=== PATIENT | female | born 1995 | race Two or more races ===

== ENCOUNTER 2018-08-24 03:09 | Observation (INO) | payer SELFPAY ==
[2018-08-24] MEDS ORDERED: EMTR1TAB2 PO (03:58)
[2018-08-24 04:55] LABS: Urine Bacteria FEW /hpf (None Seen); Urine Blood Negative /uL (Negative); Urine Specific Gravity 1.013 (1.001-1.035); Urine WBC 3 /hpf (0 - 5)
[2018-08-24 04:59] LABS: Alcohol, Urine < 3.0 mg/dL (0-5); Amphetamine Screen, Urine NEGATIVE (NEGATIVE); Barbiturate Scree,Urine NEGATIVE (NEGATIVE); Benzodiazephine Screen, Urine NEGATIVE (NEGATIVE); Cannabinoid Screen, Urine NEGATIVE (NEGATIVE); Cocaine Screen, Urine NEGATIVE (NEGATIVE); Opiate Scree,Urine NEGATIVE (NEGATIVE); Phencyclidine Screen, Urine NEGATIVE (NEGATIVE)
== END 2018-08-24 04:27 | disposition home or self-care (01) | DRG 832 ==
LOC: LDRP 03:09 → UNDODISOB 04:27
PROVIDERS: ADMIT Specialist; ATTEND Specialist
DX: O26.893 Other specified pregnancy related conditions, third trimester (principal); O98.713 Human immunodeficiency virus [HIV] disease complicating pregnancy, third trimester; B20 Human immunodeficiency virus [HIV] disease; R10.9 Unspecified abdominal pain; R20.2 Paresthesia of skin; Z3A.38 38 weeks gestation of pregnancy
CPT/HCPCS: 59025; 80307; 81001; 81002; G0378

== ENCOUNTER 2019-07-24 21:06 | Emergency (ER) | payer MEDICAID ==
[~2019-07-24] VITALS: Ht 167.6 cm; Wt 111.1 kg
[~2019-07-24 21:06] MED LIST: EMTR1TAB12 PO
[2019-07-24 21:19] VITALS: BP 112/78
[2019-07-24 21:53] LABS: Urine Bacteria FEW /hpf (None Seen); Urine Blood Negative /uL (Negative); Urine Mucus FEW (None Seen); Urine Specific Gravity 1.015 (1.001-1.035); Urine WBC 1 /hpf (0 - 5)
[2019-07-24 22:10] LABS: Alcohol, Urine < 3.0 mg/dL (0-10); Amphetamine Screen, Urine NEGATIVE (NEGATIVE); Barbiturate Scree,Urine NEGATIVE (NEGATIVE); Benzodiazephine Screen, Urine NEGATIVE (NEGATIVE); Cannabinoid Screen, Urine NEGATIVE (NEGATIVE); Cocaine Screen, Urine NEGATIVE (NEGATIVE); Opiate Scree,Urine NEGATIVE (NEGATIVE); Phencyclidine Screen, Urine NEGATIVE (NEGATIVE)
== END 2019-07-24 22:18 | disposition home or self-care (01) ==
LOC: EDBD 21:06 → ER 21:14
DX: O26.892 Other specified pregnancy related conditions, second trimester (principal); T78.1XXA Other adverse food reactions, not elsewhere classified, initial encounter; O99.342 Other mental disorders complicating pregnancy, second trimester; F41.9 Anxiety disorder, unspecified; Z3A.16 16 weeks gestation of pregnancy; X58.XXXA Exposure to other specified factors, initial encounter
CPT/HCPCS: 80307; 81001

== ENCOUNTER 2020-10-22 01:17 | Observation (INO) | payer SELFPAY ==
[2020-10-22] MEDS ORDERED: PREN-96 PO (01:46)
[2020-10-22] MEDS ORDERED: EMTRTAB7 PO (01:46)
== END 2020-10-22 04:27 | disposition home or self-care (01) ==
LOC: LDRP 01:17
PROVIDERS: ADMIT Obstetrics & Gynecology; ATTEND Obstetrics & Gynecology
DX: O23.592 Infection of other part of genital tract in pregnancy, second trimester (principal); B96.89 Other specified bacterial agents as the cause of diseases classified elsewhere; O26.892 Other specified pregnancy related conditions, second trimester; R10.9 Unspecified abdominal pain; O99.512 Diseases of the respiratory system complicating pregnancy, second trimester; J02.9 Acute pharyngitis, unspecified; Z3A.17 17 weeks gestation of pregnancy; Z79.899 Other long term (current) drug therapy; Z87.891 Personal history of nicotine dependence
CPT/HCPCS: 59025; 76805; 81002; 87210; G0378; G0379

== ENCOUNTER 2021-02-04 05:42 | Emergency (ER) | payer MEDICAID ==
[~2021-02-04] VITALS: Ht 167.6 cm; Wt 99.8 kg
[~2021-02-04 05:42] MED LIST changes: -EMTR1TAB12 PO; +EMTRTAB7 PO; +PREN-96 PO
[2021-02-04 07:57] LABS: Basophils # (auto) 0 10 ^3/uL (0-0.2); Basophils % (auto) 0.2 % (0.0-2.0); Eosinophils # (auto) 0 10 ^3/uL (0-0.8); Hematocrit 33.5 % (36.0-46.0); Hemoglobin 11.5 g/dL (12.2-16.2); Lymphocytes # (auto) 0.5 10 ^3/uL (0.4-5.4); Lymphocytes % (auto) 3.3 % (10.0-50.0); Mean Corpuscular Hemoglobin 28.2 pg (28.0-32.0); Mean Corpuscular Hgb Conc. 34.4 g/dL (32.0-36.0); Mean Corpuscular Volume 81.8 fL (80.0-100.0); Monocytes # (auto) 0.4 10 ^3/uL (0-1.3); Neutrophils # (auto) 13.9 10 ^3/uL (1.6-8.6); Neutrophils % (auto) 93.5 % (37.0-80.0); Nucleated Red Blood Cells % 0.1 %; Red Blood Cells 4.09 10^6/uL (4.0-5.20); Red Cell Distribution Width 14.3 % (11.8-14.3); White Blood Cell 14.9 10^3/uL (4.4-10.8)
[2021-02-04 08:13] LABS: Albumin 2.1 g/dL (3.4-5.0); Calcium 8.3 mg/dL (8.5-10.1); Potassium 3.1 mmol/L (3.5-5.1)
[2021-02-04 10:31] LABS: Urine Bacteria FEW /hpf (None Seen); Urine Blood Negative /uL (Negative); Urine Hyaline Cast MANY /lpf (0 - 2); Urine Mucus FEW (None Seen); Urine Specific Gravity 1.018 (1.001-1.035); Urine WBC 4 /hpf (0 - 5)
[2021-02-04] MEDS ORDERED: ASCORBIC ACID 500 MG TAB PO ONE (11:30)
[2021-02-04] MEDS ORDERED: POTASSIUM EFFERVESENT TAB 25 MEQ PO ONE (11:30)
[2021-02-04] MEDS ORDERED: ZINC SULFATE 220mg CAP or TAB PO ONE (11:30)
[2021-02-04] MEDS ORDERED: AZITHROMYCIN 500MG/ 250ML 250 ML IV ONE (11:30)
[2021-02-04] MEDS ORDERED: CHOLECALCIFEROL (VITD3) 2,000 UNIT CAP/TAB PO ONE (11:30)
[2021-02-04] MEDS ORDERED: DexAMETHasone SOD PHOS 10MG/1ML VIAL INJ IV ONE (11:30)
[2021-02-04] MEDS ORDERED: cefTRIAXone 1GM/50ML D5W 50 ML IV ONE (11:30)
[2021-02-04 19:55] VITALS: BP 119/76
== END 2021-02-04 20:29 | disposition short-term general hospital (02) ==
LOC: ER 05:42
DX: O99.513 Diseases of the respiratory system complicating pregnancy, third trimester (principal); O02.9 Abnormal product of conception, unspecified; J18.9 Pneumonia, unspecified organism; B20 Human immunodeficiency virus [HIV] disease; E87.6 Hypokalemia; E43 Unspecified severe protein-calorie malnutrition; R74.8 Abnormal levels of other serum enzymes; Z20.822 Contact with and (suspected) exposure to COVID-19; Z3A.31 31 weeks gestation of pregnancy
CPT/HCPCS: 36415; 71046; 80053; 81001; 85025; 87426; 87804; 93005; 96365; 96366; 96368; 96375; 99285; J0456; J0696; J1100

== ENCOUNTER → 2021-11-18 | Emergency (ER) | payer MEDICAID ==
[~2021-11-18] VITALS: Ht 167.6 cm; Wt 113.6 kg
[~2021-11-18] MED LIST changes: +CLIN300C8 PO
== END | disposition left against medical advice (07) ==
LOC: ER 15:25
DX: Z48.00 Encounter for change or removal of nonsurgical wound dressing (principal); Z53.21 Procedure and treatment not carried out due to patient leaving prior to being seen by health care provider

== ENCOUNTER 2021-11-19 00:46 | Emergency (ER) | payer MEDICAID ==
[~2021-11-19] VITALS: Ht 167.6 cm; Wt 109.1 kg
[~2021-11-19 00:46] MED LIST changes: -CLIN300C8 PO
[2021-11-19 02:12] VITALS: BP 112/70
[2021-11-19] MEDS ORDERED: CLIN300C8 PO (02:17)
[2021-11-19] MEDS ORDERED: CLINDAMYCIN HCL 150 MG CAP PO ONE (02:30)
== END 2021-11-19 02:46 | disposition home or self-care (01) ==
LOC: ER 00:55
DX: L03.311 Cellulitis of abdominal wall (principal); Z79.2 Long term (current) use of antibiotics; Z79.899 Other long term (current) drug therapy

== ENCOUNTER 2022-05-13 10:56 | Emergency (ER) | payer MEDICAID ==
[~2022-05-13] VITALS: Ht 167.6 cm; Wt 114.4 kg
[~2022-05-13 10:56] MED LIST changes: +CLIN300C8 PO
[2022-05-13 11:51] VITALS: BP 117/75
[2022-05-13] MEDS ORDERED: IBUP800T27 PO (11:57)
[2022-05-13] MEDS ORDERED: BACDST PO (11:57)
[2022-05-13] MEDS ORDERED: PER60TP TOP (11:57)
[2022-05-13] MEDS ORDERED: CEPH-510 PO (11:57)
[2022-05-13] MEDS ORDERED: cefTRIAXone SOD 1,000 MG VL IM ONE (12:00)
== END 2022-05-13 12:20 | disposition home or self-care (01) ==
LOC: ER 10:56
DX: S30.861A Insect bite (nonvenomous) of abdominal wall, initial encounter (principal); Z88.6 Allergy status to analgesic agent; Z88.1 Allergy status to other antibiotic agents; W57.XXXA Bitten or stung by nonvenomous insect and other nonvenomous arthropods, initial encounter; Y93.89 Activity, other specified; Y92.89 Other specified places as the place of occurrence of the external cause; Y99.8 Other external cause status
CPT/HCPCS: 96372; 99283; J0696

== ENCOUNTER 2023-07-08 18:15 | Emergency (ER) | payer MEDICAID, OTHER ==
[~2023-07-08] VITALS: Ht 167.6 cm; Wt 100.5 kg
[~2023-07-08 18:15] MED LIST changes: +BACDST PO; +CEPH-510 PO; +CLIN1CAP70 PO; -CLIN300C8 PO; +IBUP-1456 PO; +PER60TP TOP
[2023-07-08] MEDS ORDERED: BACDST PO ×2 (20:37→20:45)
[2023-07-08] MEDS ORDERED: BENZ100C97 PO (20:37)
[2023-07-08] MEDS: IBUPROFEN 600 MG TAB PO ONE (21:15)
[2023-07-08 21:19] VITALS: BP 129/72; PULSE 99; RESP 20; TEMP 99; O2SAT 98
== END 2023-07-08 21:18 | disposition home or self-care (01) ==
LOC: ER 18:20
DX: B59 Pneumocystosis (principal); Z21 Asymptomatic human immunodeficiency virus [HIV] infection status
CPT/HCPCS: 71046

== ENCOUNTER 2023-08-26 10:11 | Emergency (ER) | payer MEDICAID, OTHER ==
[~2023-08-26] VITALS: Ht 167.6 cm; Wt 100.0 kg
[~2023-08-26 10:11] MED LIST changes: +BENZ100C97 PO
[2023-08-26 10:19] VITALS: BP 103/65; PULSE 122; RESP 16; O2SAT 98
== END 2023-08-26 10:37 | disposition left against medical advice (07) ==
LOC: ER 10:11 → EDBD 10:11 → ER 10:37
DX: R42 Dizziness and giddiness (principal); R06.02 Shortness of breath; F41.9 Anxiety disorder, unspecified; R00.0 Tachycardia, unspecified; R11.0 Nausea; Z53.21 Procedure and treatment not carried out due to patient leaving prior to being seen by health care provider

== ENCOUNTER 2023-10-24 22:02 | Emergency (ER) | payer MEDICAID ==
[~2023-10-24] VITALS: Ht 167.6 cm; Wt 84.6 kg
[2023-10-24 22:27] VITALS: BP 134/86; PULSE 130; RESP 20; O2SAT 94
== END 2023-10-25 00:05 | disposition left against medical advice (07) ==
LOC: ER 22:02
DX: R22.41 Localized swelling, mass and lump, right lower limb (principal); R53.83 Other fatigue; R53.1 Weakness; Z53.21 Procedure and treatment not carried out due to patient leaving prior to being seen by health care provider

== ENCOUNTER 2024-01-02 22:10 | Inpatient (IN) | payer MEDICAID ==
[~2024-01-02] VITALS: Ht 167.6 cm; Wt 81.4 kg
[2024-01-02 23:08] LABS: Urine Bacteria None Seen /hpf (None Seen)
[2024-01-02 23:18] LABS: Urine Blood Negative /uL (Negative); Urine Clarity Turbid (Clear); Urine Color Yellow (Yellow); Urine Mucus FEW (None Seen); Urine Protein, UAD 1+ (Negative); Urine Specific Gravity 1.021 (1.001-1.035); Urine Urobilinogen 2 mg/dL (Negative); Urine WBC 9 /hpf (0 - 5)
[2024-01-02 23:29] LABS: Eosinophils # (auto) 0 10 ^3/uL (0-0.8); Hemoglobin 7.5 g/dL (12.2-16.2); Monocytes # (auto) 0.2 10 ^3/uL (0-1.3); Nucleated Red Blood Cells % 0.1 %
[2024-01-02 23:32] LABS: Basophils # (auto) 0 10 ^3/uL (0-0.2); Basophils % (auto) 0.8 % (0.0-2.0); Eosinophils % (auto) 0.8 % (0.0-7.0); Hematocrit 23.5 % (36.0-46.0); Lymphocytes % (auto) 16.7 % (10.0-50.0); Mean Corpuscular Hemoglobin 22.7 pg (28.0-32.0); Mean Corpuscular Hgb Conc. 31.9 g/dL (32.0-36.0); Mean Corpuscular Volume 71.1 fL (80.0-100.0); Monocytes % (auto) 3.1 % (0.0-12.0); Neutrophils # (auto) 4.8 10 ^3/uL (1.6-8.6); Neutrophils % (auto) 78.6 % (37.0-80.0); Platelet Count (auto) 266 10^3/uL (140-450); Red Blood Cells 3.31 10^6/uL (4.0-5.20); White Blood Cell 6.2 10^3/uL (4.4-10.8)
[2024-01-02 23:57] LABS: Albumin 3.2 g/dL (3.2-4.8); Alkaline Phosphatase 86 U/L (46-116); Anion Gap 8 (5-15); Aspartate Aminotransferase 21 U/L (13-40); BUN/Creatinine Ratio 13.2 (10.0-20.0); Bilirubin, Total 0.7 mg/dL (0.2-1.0); Blood Urea Nitrogen 7 mg/dL (9-23); Calcium 9.1 mg/dL (8.7-10.4); Carbon Dioxide 21 mmol/L (20-31); Chloride 101 mmol/L (98-107); Glucose 90 mg/dL (74-106); Potassium 4.1 mmol/L (3.5-5.1); Sodium 130 mmol/L (136-145); Total Protein 8.5 g/dL (5.7-8.2)
[2024-01-02 23:59] LABS: Alanine Aminotransferase < 9 U/L (7-40)
[2024-01-03] VITALS (7 sets, daily range): BP systolic 101–120; BP diastolic 54–70; PULSE 88–125; RESP 15–20; TEMP 97.5–98.8; O2SAT 97–100
[2024-01-03] MEDS: ONDANSETRON ODT 4 MG TAB PO ONE (00:14)
--- NOTE | 2024-01-03 00:35 | DVH ---
CHEST RADIOGRAPH Indication: cough Technique: Single frontal view of the chest was obtained Comparison: None FINDINGS: Lines and Tubes: None Lungs: Clear Pleura: No effusion. No pneumothorax. Cardiomediastinal contours: Unremarkable Bones: Unremarkable IMPRESSION: 1. Clear lungs.
--- NOTE | 2024-01-03 00:58 | ED.PDOC ---
History of Present Illness HPI Comments 28-year-old female with a history of AIDS brought in by EMS. Patient states she has been feeling fatigued for a week. Has been having cough and congestion. Patient has a history of immunocompromise. States approximate two months ago she was stopped taking her antivirals and antibiotics. Previous review of record shows she was possibly on Bactrim DS and azithromycin daily. Med report also she was she was on Biktarvy. Patient states coughing duration started one week ago, three days ago she was started feeling headache night sweats and feverish. Has been having intermittent nausea. Chief Complaint: General Weakness Time Seen by MD: 23:03 Primary Care Provider: NONE Reviewed Notes: Nurses Notes Allergies: Coded Allergies: NO KNOWN ALLERGIES (Unverified , 10/22/20) Home Meds Active Scripts Sulfamethoxazole W/Trimethopri (Bactrim Ds Tablet) 1 Tab Tb, 2 TAB PO Q8HR for 21 Days, #126 TAB Prov:MAXIM NIELSEN PAC 07/08/23 Benzonatate (Benzonatate) 100 Mg Cap, 1-2 CAP PO Q4HR, #60 CAP Prov:MAXIM NIELSEN [facility] 07/08/23 Permethrin (Elimite) 5 % Cre, 1 APPLIC TOP ONCE, #60 GRAMS 1 Refill Prov:TONY NAVARRO 05/13/22 Cephalexin ( Keflex 500) 500 Mg Cap, 1 CAP PO QID, #40 CAP Prov:TONY NAVARRO 05/13/22 Sulfamethoxazole W/Trimethopri (Bactrim Ds Tablet) 1 Tab Tb, 1 TAB PO BID for 10 Days, #20 TAB Prov:TONY NAVARRO 05/13/22 Ibuprofen (Ibuprofen) 800 Mg Tab, 1 TAB PO TID, #30 TAB Prov:TONY NAVARRO 05/13/22 Clindamycin Hcl (Clindamycin Hcl) 300 Mg Cap, 1 CAP PO TID for 10 Days, #21 CAP 0 Refills Prov:AMAYA SÁNCHEZ 11/19/21 Reported Medications Vit W/ Ferrous Fumara ( One Daily) Daily Tab, 1 TAB PO DAILY, #90 TAB 3 Refills 10/22/20 Emtricitabine-Tenofovir Disopr (Truvada) Tab, 1 TAB PO DAILY, #30 TAB 2 Refills 10/22/20 Information Source: Patient Mode of Arrival: Ambulatory Past Medical History PAST MEDICAL HISTORY: HIV Surgical History: [facility] History: Denies all [facility] Hx Family History Family History: Reviewed,noncontributory to illness Social History Smoker: Non-Smoker Alcohol: Denies ETOH Use Drugs: Denies Drug Use Lives In: Home Constitutional: reports: chills, fatigue, weakness; denies: diaphoresis, fever, malaise, sweats, others EENTM: denies: blurred vision, double vision, ear bleeding, ear discharge, ear drainage, ear pain, ear ringing, eye pain, eye redness, hearing loss, mouth pain, mouth swelling, nasal discharge, nose bleeding, nose congestion, nose pain, photophobia, tearing, throat pain, throat swelling, voice changes, others Respiratory: reports: cough, SOB at rest; denies: hemoptysis, orthopnea, shortness of breath, SOB with excertion, stridor, wheezing, others Cardiovascular: denies: chest pain, dizzy spells, diaphoresis, Dyspnea on exertion, edema, irregular heart beat, left arm pain, lightheadedness, palpitations, PND, syncope, others Gastrointestinal: reports: nausea, vomiting; denies: abdomen distended, abdominal pain, blood streaked bowels, constipated, diarrhea, dysphagia, difficulty swallowing, hematemesis, melena, poor appetite, poor fluid intake, rectal bleeding, rectal pain, others Genitourinary: denies: abnormal vagina bleeding, burning, dyspareunia, dysuria, flank pain, frequency, hematuria, incontinence, pain, , vagina discharge, urgency, others Neurological: denies: dizziness, fainting, headache, left sided numbness, left sided weakness, numbness, paresthesia, pre-existing deficit, right sided numbness, right sided weakness, seizure, speech problems, tingling, tremors, weakness, others Musculoskeletal: denies: back pain, gout, joint pain, joint swelling, muscle pain, muscle stiffness, neck pain, others Integumetry: denies: bruises, change in color, change in hair/nails, dryness, laceration, lesions, lumps, rash, wounds, others Physical Exam General Appearance: Mild Distress, Normal HEENT: Normal ENT Inspection, Pharynx Normal, TMs Normal Neck: Full Range of Motion, Non-Tender, Normal, Normal Inspection Respiratory: Chest Non-Tender, Lungs Clear, No Accessory Muscle Use, No Respiratory Distress, Normal Breath Sounds Cardiovascular: No Edema, No JVD, No Murmur, No Gallop, Normal Peripheral Pulses, Regular Rate/Rhythm Breast Exam: Deferred Gastrointestinal: No Organomegaly, Non Tender, No Pulsatile Mass, Normal Bowel Sounds, Soft Genitalia: Deferred Pelvic: Deferred Rectal: Deferred Extremities: No calf tenderness, Normal capillary refill, Normal inspection, Normal range of motion, Non-tender, No pedal edema Musculoskeletal : Apperance: Normal Neurologic: Alert, chief knowledge officer II-XII nml as Tested, No Motor Deficits, Normal Affect, Normal Mood, No Sensory Deficits Cerebellar Function: Normal Reflexes: Normal Skin: Dry, Normal Color, Warm Lymphatic: No Adenopathy Was a procedure done? Was a procedure done?: No Differential Dx Considerations may include: Immunocompromise, aids, GI bleed, chronic anemia pneumonia, opportunistic infection X-Ray, Labs, Meds, VS Vital Signs Date Time Temp Pulse Resp B/P (MAP) Pulse Ox O2 Delivery O2 Flow Rate FiO2 01/02/24 22:10 98.7 143 20 112/71 (85) 99 Lab Test 01/02/24 23:15 01/02/24 22:40 Range/Units White Blood Count 6.2 4.4-10.8 10^3/uL Red Blood Count 3.31 L 4.0-5.20 10^6/uL Hemoglobin 7.5 L 12.2-16.2 g/dL Hematocrit 23.5 L 36.0-46.0 % Mean Corpuscular Volume 71.1 L 80.0-100.0 fL Mean Corpuscular Hemoglobin 22.7 L 28.0-32.0 pg Mean Corpuscular Hemoglobin Concent 31.9 L 32.0-36.0 g/dL Red Cell Distribution Width 21.0 H 11.8-14.3 % Platelet Count 266 140-450 10^3/uL Mean Platelet Volume 6.4 L 6.9-10.8 fL Neutrophils (%) (Auto) 78.6 37.0-80.0 % Lymphocytes (%) (Auto) 16.7 10.0-50.0 % Monocytes (%) (Auto) 3.1 0.0-12.0 % Eosinophils (%) (Auto) 0.8 0.0-7.0 % Basophils (%) (Auto) 0.8 0.0-2.0 % Neutrophils # (Auto) 4.8 1.6-8.6 10 ^3/uL Lymphocytes # (Auto) 1.0 0.4-5.4 10 ^3/uL Monocytes # (Auto) 0.2 0-1.3 10 ^3/uL Eosinophils # (Auto) 0 0-0.8 10 ^3/uL Basophils # (Auto) 0 0-0.2 10 ^3/uL Nucleated Red Blood Cells 0.1 % Sodium Level 130 L 136-145 mmol/L Potassium Level 4.1 3.5-5.1 mmol/L Chloride Level 101 98-107 mmol/L Carbon Dioxide Level 21 20-31 mmol/L Anion Gap 8 5-15 Blood Urea Nitrogen 7 L 9-23 mg/dL Creatinine 0.53 L 0.550-1.02 mg/dL Glomerular Filtration Rate Calc 128 >90 mL/min BUN/Creatinine Ratio 13.2 10.0-20.0 Serum Glucose 90 74-106 mg/dL Calcium Level 9.1 8.7-10.4 mg/dL Total Bilirubin 0.7 0.2-1.0 mg/dL Aspartate Amino Transferase (AST) 21 13-40 U/L Alanine Aminotransferase (ALT) < 9 7-40 U/L Alkaline Phosphatase 86 46-116 U/L Total Protein 8.5 H 5.7-8.2 g/dL Albumin 3.2 3.2-4.8 g/dL Urine Color Yellow Yellow Urine Clarity Turbid H Clear Urine pH 6.0 5.0-9.0 Urine Specific [place] 1.021 1.001-1.035 Urine Protein 1+ H Negative Urine Ketones Trace Negative Urine Blood Negative Negative /uL Urine Nitrite Negative Negative Urine Bilirubin Negative Negative Urine Urobilinogen 2 H Negative mg/dL Urine Leukocyte Esterase 2+ Negative /uL Urine RBC 2 0 - 4 /hpf Urine WBC 9 0 - 5 /hpf Urine Squamous Epithelial Cells Few <5 /hpf Urine Calcium Oxalate Crystals Many None Seen Urine Bacteria None seen None Seen /hpf Urine Mucus Few None Seen Urine Glucose Normal Normal mg/dL Current Medications Medications (Trade) Dose Ordered Sig/Era Route Start Time Stop Time Status Last Admin Ondansetron HCl (Zofran Po) 4 mg ONCE ONCE PO 01/02/24 23:15 01/02/24 23:16 DC 01/03/24 00:14 X-Ray, Labs, Meds, VS Comment Patient will be admitted for IV antibiotics, immunocompromise, Patient has significant drop in hemoglobin without direct cause. Recommend Infectious Disease consult Time of 1ST Reevaluation: 00:58 Reevaluation 1ST: Unchanged Patient Education/Counseling: Diagnosis, Treatment Family Education/Counseling: Diagnosis Departure 1 Departure Time of Disposition: 00:56 Impression: Primary Impression: History of HIV or AIDS Additional Impressions: Hyponatremia Anemia Qualified Codes: D50.9 - Iron deficiency anemia, unspecified Opportunistic infection Disposition: ADMITTED INPATIENT Condition: Fair Discharged With: Self Critical Care Note Critical Care Time?: No Stability Stability form required: No Heart Score Heart Score: Heart Score Response (Comments) Value History N/A 0 EKG N/A 0 Age N/A 0 Risk Factors N/A 0 Troponin N/A 0 Total 0 ANN PIMENTEL Jan 03, 2024 00:58
[2024-01-03] MEDS ORDERED: NITROGLYCERIN 0.4 MG SL TAB SL PRN (01:15)
[2024-01-03] MEDS ORDERED: MORPHINE SULFATE INJ 2 MG/ml SYRG IV PRN (01:15)
[2024-01-03] MEDS: AZITHROMYCIN 500MG/ 250ML 250 ML IV ONE (01:20)
[2024-01-03] MEDS: ACETAMINOPHEN 325 MG TAB PO PRN (01:44)
--- NOTE | 2024-01-03 02:49 | DVHHPRES ---
History of Present Illness Resident Creating Document: JAMES KIM RESIDENT History of Present Illness Patient is 28 years old female with past medical history of AIDS, immunodeficiency, mac came with a complaint of flu-like symptom for last 7 days with a cough and running nose. As per patient patient has been having flu-like symptoms like cough with whitish mucus and running nose. Patient also endorsed nausea and vomiting 2 times mainly watery content over last 2 days, on further discussion patient reported feeling so tired and fatigued even could not get up from the bed. Patient also endorsed diarrhea for last 4 days, watery greenish color. On further discussion patient also reported feeling dizzy headache and night sweats that has been going on for last several days. 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 Patient is irregular in taking medication over the last several months. Patient taking off and on but not really compliant with the medications. Nephrolithiasis October she has been very irregular in taking medication. Patient reported she was on ethambutol, azithromycin, Bactrim DS, Biktarvy. Initial lab workup revealed severe anemia hemoglobin 7.5, MCV 71.1, RDW 21, mild hyponatremia sodium 130, urinalysis revealed leukocyte esterase 3+, WBC 9, RBC 2. Chest x-ray no acute cardiopulmonary disease noted. UDS positive for cannabinoids and amphetamine. Patient tested negative for COVID-19 and influenza type A and B. Past Medical History AIDS, immunosuppression, severe anemia, history of blood transfusion Past Surgical History History of , cholecystectomy, tonsillectomy Past Social History Lives with a friend in his house, denies smoking or alcoholism, uses weed Review of Systems Review of Systems Allergy-NKDA Patient was seen today at the bedside. Patient reports feeling tired, nausea and vomiting Cardiovascular- deny acute chest pain or shortness of breath or cough or palpitation Respiratory- denies cough or short of breath or wheezing Gastrointestinal- denies any rectal bleeding, Musculoskeletal-denies acute joint swelling or tenderness or redness Neurological- denies acute dysarthria, dysphagia, Psychiatry- denies depression or SI or HI Skin- denies acute rash or purpura Allergies: Coded Allergies: NO KNOWN ALLERGIES (Unverified , 10/22/20) Medications Current Medications Medications Dose Ordered Sig/Era Route Start Time Stop Time Status Last Admin Dose Admin Sodium Chloride 10 ml Q8HR IV 01/03/24 06:00 Acetaminophen 650 mg Q6HP PRN PO 01/03/24 01:15 01/03/24 01:44 650 MG Morphine Sulfate 2 mg Q4HPRN PRN IV 01/03/24 01:15 Nitroglycerin 0.4 mg Q5MINP PRN SL 01/03/24 01:15 Morphine Sulfate 2 mg Q30M PRN IV 01/03/24 01:15 Exam Vital Signs Vital Signs Date Time Temp Pulse Resp B/P (MAP) Pulse Ox O2 Delivery O2 Flow Rate FiO2 01/03/24 00:08 125 16 97 Room Air* 0 21 01/03/24 00:08 100.1 118/66 (83) 100.1 Exam General examination- tired looking, anemic HEENT- [place], no acute nasal discharge Cardiovascular- S1-S2 audible, rate and rhythm regular, no murmur Respiratory- CTAB, no wheeze or rhonchi Gastrointestinal-hepatosplenomegaly++, bowel sound+. Nondistended Musculoskeletal-no acute joint swelling or tenderness or redness# Lower extremity- no leg edema Neurological- cranial nerves intact, no acute dysarthria or dysphagia Psychiatry- denies depression or SI or HI Skin- no acute rash or purpura Labs/Xrays Labs Test 01/02/24 23:15 01/02/24 22:40 Range/Units White Blood Count 6.2 4.4-10.8 10^3/uL Red Blood Count 3.31 L 4.0-5.20 10^6/uL Hemoglobin 7.5 L 12.2-16.2 g/dL Hematocrit 23.5 L 36.0-46.0 % Mean Corpuscular Volume 71.1 L 80.0-100.0 fL Mean Corpuscular Hemoglobin 22.7 L 28.0-32.0 pg Mean Corpuscular Hemoglobin Concent 31.9 L 32.0-36.0 g/dL Red Cell Distribution Width 21.0 H 11.8-14.3 % Platelet Count 266 140-450 10^3/uL Mean Platelet Volume 6.4 L 6.9-10.8 fL Neutrophils (%) (Auto) 78.6 37.0-80.0 % Lymphocytes (%) (Auto) 16.7 10.0-50.0 % Monocytes (%) (Auto) 3.1 0.0-12.0 % Eosinophils (%) (Auto) 0.8 0.0-7.0 % Basophils (%) (Auto) 0.8 0.0-2.0 % Neutrophils # (Auto) 4.8 1.6-8.6 10 ^3/uL Lymphocytes # (Auto) 1.0 0.4-5.4 10 ^3/uL Monocytes # (Auto) 0.2 0-1.3 10 ^3/uL Eosinophils # (Auto) 0 0-0.8 10 ^3/uL Basophils # (Auto) 0 0-0.2 10 ^3/uL Nucleated Red Blood Cells 0.1 % Sodium Level 130 L 136-145 mmol/L Potassium Level 4.1 3.5-5.1 mmol/L Chloride Level 101 98-107 mmol/L Carbon Dioxide Level 21 20-31 mmol/L Anion Gap 8 5-15 Blood Urea Nitrogen 7 L 9-23 mg/dL Creatinine 0.53 L 0.550-1.02 mg/dL Glomerular Filtration Rate Calc 128 >90 mL/min BUN/Creatinine Ratio 13.2 10.0-20.0 Serum Glucose 90 74-106 mg/dL Calcium Level 9.1 8.7-10.4 mg/dL Total Bilirubin 0.7 0.2-1.0 mg/dL Aspartate Amino Transferase (AST) 21 13-40 U/L Alanine Aminotransferase (ALT) < 9 7-40 U/L Alkaline Phosphatase 86 46-116 U/L Total Protein 8.5 H 5.7-8.2 g/dL Albumin 3.2 3.2-4.8 g/dL Urine Color Yellow Yellow Urine Clarity Turbid H Clear Urine pH 6.0 5.0-9.0 Urine Specific [place] 1.021 1.001-1.035 Urine Protein 1+ H Negative Urine Ketones Trace Negative Urine Blood Negative Negative /uL Urine Nitrite Negative Negative Urine Bilirubin Negative Negative Urine Urobilinogen 2 H Negative mg/dL Urine Leukocyte Esterase 2+ Negative /uL Urine RBC 2 0 - 4 /hpf Urine WBC 9 0 - 5 /hpf Urine Squamous Epithelial Cells Few <5 /hpf Urine Calcium Oxalate Crystals Many None Seen Urine Bacteria None seen None Seen /hpf Urine Mucus Few None Seen Urine Glucose Normal Normal mg/dL Assessment/Plan Assessment/Plan # severe anemia Hemoglobin 7.5 -plan is to do blood transfusion if hemoglobin less than 7 -ordered stool occult blood test -ordered hepatitis panel #Flu-like symptoms likely due to reactivation of AIDS -ordered ID consult -pending COVID-19 and influenza test report -continue conservative management # diarrhea, non bloody pending Stool CS -avoid dehydration -maintain oral hydration -ordered hepatitis panel # UTI -urinalysis positive for leukocyte esterase 2+, WBC 9, RBC 2 -pending urine CS -continue Zosyn IV as prescribed -continue vancomycin IV as prescribed by pharmacy #AID, immunodeficiency -patient noncompliant with the treatment -ordered infectious disease consult -resume home medications # Mycobacterium avium intracellular complex -noncompliant with the treatment --ordered infectious disease consult for further evaluation and care -resume home medications # hepatosplenomegaly likely due to Mycobacterium avium intracellular complex -noncompliant with the treatment -ordered infectious disease consult for further evaluation and care # dizziness, tiredness and fatigue likely due to severe anemia -continue current conservative management # substance abuse -UDS positive for amphetamine and cannabinoids -was counseled about the effect of substance abuse on health Goals of care/advance care planning; FULL CODE; discussed with the patient >15 minutes PUD prophylaxis: Not necessary DVT prophylaxis: Patient is ambulating Plan discussed with Dr. Rosa, nursing staff, patient Total time spent on patient evaluation, chart review, assessment and plan, discussion discussion >30 minutes Plan discussed with: Patient Plan discussed with: Patient, Other (RN) My Orders Orders - JAMES KIM RESIDENT Procedure Category Date Status Time Admit ADMIT 01/03/24 Transmitted 01:06 Code Status CODE 01/03/24 Transmitted 01:06 Sodium Chloride Lock PHA 01/03/24 In Process (Saline Lock Ns) 06:00 Complete Blood Count LAB 01/04/24 Verified 04:00 Comprehensive LAB 01/04/24 Verified Metabolic Panel 04:00 Acetaminophen Tablet PHA 01/03/24 In Process (Tylenol Tablet) 01:15 Morphine Sulfate PHA 01/03/24 In Process Injection 01:15 Nitroglycerin PHA 01/03/24 In Process Sublingual (Ntrostat 01:15 Morphine Sulfate PHA 01/03/24 In Process Injection 01:15 Oxygen By Nasal RT 01/03/24 Transmitted Cannula 01:06 Stat Ekg For Chest ARISTEO 01/03/24 In Process Pain 01:06 Notify Of Changes [facility] 01/03/24 In Process From Base 01:06 Clerk General For [facility] 01/03/24 In Process 24 Hours 01:06 Emergency Dysrhythmia [facility] 01/03/24 In Process Protocol 01:06 Rhythm Strips Once [facility] 01/03/24 In Process Every Shift 01:06 Date of Service: Jan 03, 2024 Billing Provider: TRACIE ROSA MD Common Visit Codes: [id number] INP/OBS CARE (HIGH) JAMES KIM RESIDENT Jan 03, 2024 02:49 TRACIE ROSA MD Jan 03, 2024 08:53
[2024-01-03] MEDS: cefTRIAXone 1GM/50ML D5W 50 ML IV ONE (03:03)
[2024-01-03 04:03] LABS: Amphetamine Screen, Urine Pos (NEGATIVE); Barbiturate Scree,Urine Neg (NEGATIVE); Benzodiazephine Screen, Urine Neg (NEGATIVE); Cannabinoid Screen, Urine Pos (NEGATIVE); Cocaine Screen, Urine Neg (NEGATIVE); Opiate Scree,Urine Neg (NEGATIVE); Phencyclidine Screen, Urine Neg (NEGATIVE)
[2024-01-03 05:14] LABS: COVID19 ANTIGEN SOFIA FIA NEGATIVE (NEGATIVE)
[2024-01-03 05:20] LABS: Rapid Influenza A Negative (Negative); Rapid Influenza B Negative (Negative)
[2024-01-03] MEDS: SODIUM CHLOR 0.9% PF (SALINE LOCK) 10ML VIAL/SYR IV SCH (06:03)
[2024-01-03] MEDS ORDERED: VANCOMYCIN PER PHARMACY 0 MG IV SCH (06:45)
[2024-01-03 07:49] LABS: Basophils # (auto) 0 10 ^3/uL (0-0.2); Eosinophils # (auto) 0.1 10 ^3/uL (0-0.8); Lymphocytes # (auto) 0.8 10 ^3/uL (0.4-5.4); Monocytes # (auto) 0.2 10 ^3/uL (0-1.3); Neutrophils # (auto) 2.5 10 ^3/uL (1.6-8.6); White Blood Cell 3.6 10^3/uL (4.4-10.8)
[2024-01-03 07:51] LABS: Basophils % (auto) 1.1 % (0.0-2.0); Eosinophils % (auto) 1.4 % (0.0-7.0); Hematocrit 22.5 % (36.0-46.0); Mean Corpuscular Hemoglobin 22.2 pg (28.0-32.0); Mean Corpuscular Hgb Conc. 30.9 g/dL (32.0-36.0); Mean Corpuscular Volume 71.6 fL (80.0-100.0); Neutrophils % (auto) 68.5 % (37.0-80.0); Nucleated Red Blood Cells % 0.1 %; Platelet Count (auto) 208 10^3/uL (140-450); Red Blood Cells 3.14 10^6/uL (4.0-5.20)
[2024-01-03 07:55] LABS: Red Cell Distribution Width 20.9 % (11.8-14.3)
[2024-01-03 08:13] LABS: Albumin 2.9 g/dL (3.2-4.8); Alkaline Phosphatase 76 U/L (46-116); Anion Gap 6 (5-15); Aspartate Aminotransferase 18 U/L (13-40); BUN/Creatinine Ratio 15.7 (10.0-20.0); Bilirubin, Total 0.6 mg/dL (0.2-1.0); Blood Urea Nitrogen 8 mg/dL (9-23); Calcium 8.8 mg/dL (8.7-10.4); Carbon Dioxide 25 mmol/L (20-31); Chloride 102 mmol/L (98-107); Glucose 81 mg/dL (74-106); Potassium 3.8 mmol/L (3.5-5.1); Sodium 133 mmol/L (136-145); Total Protein 7.7 g/dL (5.7-8.2)
[2024-01-03 08:17] LABS: Alanine Aminotransferase < 9 U/L (7-40)
[2024-01-03] MEDS: FERROUS SULFATE 325mg EC TAB PO SCH (09:11)
[2024-01-03] MEDS: VANCOMYCIN 1GM/250ML KIT 200 ML IV SCH ×2 (09:12→19:29)
--- NOTE | 2024-01-03 09:14 | DVH ---
CT ABDOMEN AND PELVIS WITHOUT CONTRAST CLINICAL HISTORY: Abdomen pain. in HIV patient. TECHNIQUE: Multiple contiguous axial images of the abdomen and pelvis without intravenous contrast. The images were reformatted degenerate coronal and sagittal reconstructions. All CT scans at this medical facility are performed using dose modulation techniques as appropriate t o a performed exam including the following:Automated exposure control was utilized; adjustment of the MA and/or KV according to patient size; and use of iterative reconstruction technique. Radiation Dose Information: CT Dose: CTDI volume is 11.7 mGy. Dose-length product is 659.63 mGy*cm Comparison: None FINDINGS: Evaluation of the abdomen and pelvis is limited without intravenous contrast. The spleen is enlarged measuring approximately 17 cm in AP diameter. The liver also appears enlarged. The gallbladder is surgically absent. The pancreas, kidneys, adrenal glands, appear within normal limits. There are numerous clustered enlarged lymph nodes along the mesenteric root measuring up to 1.7 cm. T here is no free fluid or free air. The stomach grossly appears unremarkable. The small and large bowel loops demonstrate normal caliber . There are scattered diverticula in the colon without evidence of acute diverticulitis. The abdominal aorta and IVC appear within normal limits. The bladder appears unremarkable for the degree of distention. An IUD is seen within the uterus.. Th ere is no gross evidence of a pelvic mass. There are prominent bilateral inguinal lymph nodes . Ther e is also a right external iliac chain lymph node measuring 1.4 cm. There is no free fluid collection . Lung bases are clear. There is no acute osseous abnormality. IMPRESSION: 1. Hepatosplenomegaly. 2. Numerous clustered enlarged lymph nodes along the mesenteric root measuring up to 1.7 cm. There ar e also prominent lymph nodes in the pelvis and groin. Clinical correlation for a lymphoproliferative process is recommended. HS:Y
[2024-01-03] MEDS: SODIUM CHLORIDE 0.9% 1,000 ML IV SCH (09:30)
[2024-01-03] MEDS: [UNRECOGNIZED DRUG - OTHER] PO SCH (10:00)
[2024-01-03] MEDS: SODIUM CHLORIDE 0.9% 500 ML IV ONE (10:40)
[2024-01-03] MEDS: PANTOPRAZOLE 40 MG/10 ML VIAL INJ IV SCH (10:46)
[2024-01-03 10:47] LABS: % Iron Saturation 9.6 % (15-50)
[2024-01-03 11:13] LABS: Platelet Estimate Adequate
[2024-01-03 11:14] LABS: Anisocytosis Slight; Hypochromia Slight
[2024-01-03] MEDS: PIPERACILLIN-TAZOB 3.375GM 100 ML IV SCH ×2 (12:24→20:46)
[2024-01-03 12:57] LABS: Ferritin 114.8 ng/mL (10-291); Folate (Folic Acid) 6.46 ng/mL (>5.38)
[2024-01-03] MEDS: SULFAMETHOX W/TRIMETH(800/160MG) DS TAB PO SCH (16:23)
--- NOTE | 2024-01-03 17:10 | DVHPNRES ---
Progress Note Date Seen: Jan 03, 2024 Resident Creating Document: EPIFANIO AVALOS RESIDENT Has the PT tested + for MRSA If YES, has PT been informed?: No Medical Necessity Reason Pt with a Central, PICC or Fol: No Subjective Review of Systems Patient is 28 years old female with past medical history of AIDS, immunodeficiency, mac came with a complaint of flu-like symptom for last 7 days with a cough and running nose. As per patient patient has been having flu-like symptoms like cough with whitish mucus and running nose. Patient also endorsed nausea and vomiting 2 times mainly watery content over last 2 days, on further discussion patient reported feeling so tired and fatigued even could not get up from the bed. Patient also endorsed diarrhea for last 4 days, watery greenish color. On further discussion patient also reported feeling dizzy headache and night sweats that has been going on for last several days. 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 Patient is irregular in taking medication over the last several months. Patient taking off and on but not really compliant with the medications. Nephrolithiasis October she has been very irregular in taking medication. Patient reported she was on ethambutol, azithromycin, Bactrim DS, Biktarvy. Initial lab workup revealed severe anemia hemoglobin 7.5, MCV 71.1, RDW 21, mild hyponatremia sodium 130, urinalysis revealed leukocyte esterase 3+, WBC 9, RBC 2. Chest x-ray no acute cardiopulmonary disease noted. UDS positive for cannabinoids and amphetamine. Patient tested negative for COVID-19 and influenza type A and B Objective vital signs Vital Sign Date Time Temp Pulse Resp B/P (MAP) Pulse Ox O2 Delivery O2 Flow Rate FiO2 01/03/24 12:24 98.8 108 20 101/56 (71) 98 98.8 01/03/24 11:07 Room Air* 0 21 Total Intake and Output 01/02/24 01/02/24 01/03/24 15:00 23:00 07:00 Intake Total 350 ml Balance 350 ml medications Current Medications Medications Dose Ordered Sig/Era Route Start Time Stop Time Status Last Admin Dose Admin Sodium Chloride 10 ml Q8HR IV 01/03/24 06:00 01/03/24 14:00 10 ML Acetaminophen 650 mg Q6HP PRN PO 01/03/24 01:15 01/03/24 01:44 650 MG Morphine Sulfate 2 mg Q4HPRN PRN IV 01/03/24 01:15 Nitroglycerin 0.4 mg Q5MINP PRN SL 01/03/24 01:15 Morphine Sulfate 2 mg Q30M PRN IV 01/03/24 01:15 Ferrous Sulfate 325 mg TIDWM PO 01/03/24 08:00 01/03/24 12:24 325 MG Trimethoprim/ Sulfamethoxazole 2 tab Q8HR PO 01/03/24 14:00 01/03/24 16:23 2 TAB Vancomycin HCl 0 ml @ 0 mls/hr UD IV 01/03/24 06:45 Piperacillin Sod/ Tazobactam Sod 100 ml @ 25 mls/hr Q6HR IV 01/03/24 12:00 01/03/24 12:24 25 MLS/HR Pantoprazole Sodium 40 mg DAILY IV 01/03/24 10:00 01/03/24 10:46 40 MG Sodium Chloride 1,000 ml @ 75 mls/hr [id number] IV 01/03/24 09:30 01/03/24 09:30 75 MLS/HR Vancomycin HCl 200 ml @ 200 mls/hr Q8H IV 01/03/24 17:00 Examination General examination- tired looking, anemic HEENT- PEERLA, no acute nasal discharge Cardiovascular- S1-S2 audible, rate and rhythm regular, no murmur Respiratory- CTAB, no wheeze or rhonchi Gastrointestinal-hepatosplenomegaly++, bowel sound-. Nondistended Musculoskeletal-no acute joint swelling or tenderness or redness# Lower extremity- no leg edema Neurological- cranial nerves intact, no acute dysarthria or dysphagia Psychiatry- denies depression or SI or HI Skin- no acute rash or purpura laboratory and microbiology Laboratory Tests 01/03/24 07:32 Test 01/03/24 07:32 Range/Units Serum Glucose 81 74-106 mg/dL Problem List/Assessment/Plan Problem List/Assessment/Plan # severe anemia due to iron deficiency and HIV Hemoglobin 7.1 -ordered stool occult blood test -ordered hepatitis panel pending -iron oral No need of transfusion right now #Respiratory symptoms likely due to reactivation of AIDS -ordered ID consult -COVID-19 and influenza test report neg -TMX SMP pcp prophylaxis # diarrhea, non bloody, possible viral diarrhea in AIDS pending Stool CS -IV fluids #Sepsis # UTI -urinalysis positive for leukocyte esterase 2+, WBC 9, RBC 2 -pending urine CS pending blood cultures -continue Zosyn IV as prescribed -continue vancomycin IV as prescribed by pharmacy #AIDS, immunodeficiency -patient noncompliant with the treatment -ordered infectious disease consult -No antiretroviral inpatient Pending CD4+ and viral load # Mycobacterium avium intracellular complex in august 2023 -noncompliant with the treatment --ordered infectious disease consult for further evaluation and care # hepatosplenomegaly Reactive abdominal adenitis Possible due to HIV/ AIDS # substance abuse -UDS positive for amphetamine and cannabinoids -was counseled about the effect of substance abuse on health Goals of care/advance care planning; FULL CODE; discussed with the patient >15 minutes PUD prophylaxis: Not necessary DVT prophylaxis: Patient is ambulating, anemia Plan discussed with Dr. Bansal, nursing staff, patient Total time spent on patient evaluation, chart review, assessment and plan, discussion discussion >30 minutes Plan discussed with: Patient Plan discussed with: Patient, Other (rn) My Orders My Orders Orders - EPIFANIO AVALOS Procedure Category Date Status Time Haptoglobin LAB 01/03/24 In Process 08:46 Sodium Chloride 0.9% PHA 01/03/24 In Process 09:30 Mrsa Screen IBAN 01/03/24 Uncollected 13:20 Complete Blood Count LAB 01/03/24 Logged 14:43 Stool Occult Blood LAB 01/03/24 Logged 14:43 Clear Liq Diet DIET 01/03/24 Transmitted Dinner Date of Service: Jan 03, 2024 Billing Provider: SHARON BANSAL MD Common Visit Codes: [id number] INP/OBS CARE(LOW) EPIFANIO AVALOS Jan 03, 2024 17:10 SHARON BANSAL MD Jan 04, 2024 08:07
[2024-01-03 19:24] LABS: Basophils # (auto) 0 10 ^3/uL (0-0.2); Basophils % (auto) 0.2 % (0.0-2.0); Eosinophils # (auto) 0.1 10 ^3/uL (0-0.8); Lymphocytes # (auto) 0.7 10 ^3/uL (0.4-5.4); Monocytes # (auto) 0.2 10 ^3/uL (0-1.3); Nucleated Red Blood Cells % 0.2 %
[2024-01-03 19:27] LABS: Eosinophils % (auto) 1.5 % (0.0-7.0); Hematocrit 22.5 % (36.0-46.0); Hemoglobin 7.1 g/dL (12.2-16.2); Mean Corpuscular Hemoglobin 23.1 pg (28.0-32.0); Mean Corpuscular Hgb Conc. 31.7 g/dL (32.0-36.0); Mean Corpuscular Volume 73.1 fL (80.0-100.0); Neutrophils # (auto) 3.3 10 ^3/uL (1.6-8.6); Neutrophils % (auto) 77.3 % (37.0-80.0); Platelet Count (auto) 225 10^3/uL (140-450); Red Blood Cells 3.07 10^6/uL (4.0-5.20); White Blood Cell 4.3 10^3/uL (4.4-10.8)
[2024-01-03] MEDS: MORPHINE SULFATE INJ 2 MG/ml SYRG IV PRN (20:58)
[2024-01-03] MEDS ORDERED: cefTRIAXone 1GM/50ML D5W 50 ML IV SCH (22:00)
[2024-01-04] VITALS (11 sets, daily range): BP systolic 99–111; BP diastolic 54–62; PULSE 84–105; RESP 16–20; TEMP 97.5–99; O2SAT 98–100
[2024-01-04 05:08] LABS: Basos 0 % (Not Estab.); Eos 1 % (Not Estab.); Eos (Absolute) 0.1 x10E3/uL (0.0-0.4); Hematocrit 22.4 % (34.0-46.6); Hemoglobin 6.5 g/dL (11.1-15.9); Immature Granulocytes (Abs) 0 x10E3/uL (0.0-0.1); Lymphs 23 % (Not Estab.); Lymphs (Absolute) 0.9 x10E3/uL (0.7-3.1); MCH 21.9 pg (26.6-33.0); MCV 75 fL (79-97); Monocytes 5 % (Not Estab.); Monocytes (Absolute) 0.2 x10E3/uL (0.1-0.9); Neutrophils 71 % (Not Estab.); Neutrophils (Absolute) 2.7 x10E3/uL (1.4-7.0); Platelets 214 x10E3/uL (150-450); RBC 2.97 x10E6/uL (3.77-5.28); RDW 18.6 % (11.7-15.4); WBC 3.9 x10E3/uL (3.4-10.8)
[2024-01-04 05:26] LABS: Albumin 2.6 g/dL (3.2-4.8); Alkaline Phosphatase 67 U/L (46-116); Anion Gap 5 (5-15); Aspartate Aminotransferase 15 U/L (13-40); BUN/Creatinine Ratio 12.3 (10.0-20.0); Blood Urea Nitrogen 8 mg/dL (9-23); Carbon Dioxide 23 mmol/L (20-31); Chloride 101 mmol/L (98-107); Glucose 89 mg/dL (74-106); Potassium 4.3 mmol/L (3.5-5.1); Sodium 129 mmol/L (136-145)
[2024-01-04 05:27] LABS: Bilirubin, Total 0.5 mg/dL (0.2-1.0); Total Protein 6.9 g/dL (5.7-8.2)
[2024-01-04 05:34] LABS: Basophils # (auto) 0 10 ^3/uL (0-0.2); Basophils % (auto) 0.2 % (0.0-2.0); Eosinophils # (auto) 0.1 10 ^3/uL (0-0.8); Eosinophils % (auto) 1.6 % (0.0-7.0); Hematocrit 20.5 % (36.0-46.0); Lymphocytes # (auto) 0.9 10 ^3/uL (0.4-5.4); Lymphocytes % (auto) 19.9 % (10.0-50.0); Mean Corpuscular Hemoglobin 22.3 pg (28.0-32.0); Mean Corpuscular Volume 72.2 fL (80.0-100.0); Monocytes # (auto) 0.2 10 ^3/uL (0-1.3); Monocytes % (auto) 4.8 % (0.0-12.0); Neutrophils # (auto) 3.3 10 ^3/uL (1.6-8.6); Neutrophils % (auto) 73.5 % (37.0-80.0); Nucleated Red Blood Cells % 0.2 %; Platelet Count (auto) 205 10^3/uL (140-450); Red Blood Cells 2.84 10^6/uL (4.0-5.20); White Blood Cell 4.5 10^3/uL (4.4-10.8)
[2024-01-04 05:44] LABS: Hemoglobin 6.3 g/dL (12.2-16.2)
[2024-01-04 05:45] LABS: Red Cell Distribution Width 21.4 % (11.8-14.3)
[2024-01-04 05:48] LABS: Alanine Aminotransferase < 9 U/L (7-40)
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
[2024-01-04] MEDS: IRON SUCROSE COMPLEX 110 ML IV SCH (11:29)
[2024-01-04] MEDS ORDERED: IRON SUCROSE COMPLEX 110 ML IV SCH (12:00)
[2024-01-04] MEDS: IBUPROFEN 400 MG TAB PO PRN (16:54)
--- NOTE | 2024-01-04 17:49 | DVHPNRES ---
Progress Note Date Seen: Jan 04, 2024 Resident Creating Document: EPIFANIO AVALOS RESIDENT Has the PT tested + for MRSA If YES, has PT been informed?: No Medical Necessity Reason Pt with a Central, PICC or Fol: No Subjective Review of Systems Patient is 28 years old female with past medical history of AIDS, immunodeficiency, mac came with a complaint of flu-like symptom for last 7 days with a cough and running nose. As per patient patient has been having flu-like symptoms like cough with whitish mucus and running nose. Patient also endorsed nausea and vomiting 2 times mainly watery content over last 2 days, on further discussion patient reported feeling so tired and fatigued even could not get up from the bed. Patient also endorsed diarrhea for last 4 days, watery greenish color. On further discussion patient also reported feeling dizzy headache and night sweats that has been going on for last several days. 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 Patient is irregular in taking medication over the last several months. Patient taking off and on but not really compliant with the medications. Nephrolithiasis October she has been very irregular in taking medication. Patient reported she was on ethambutol, azithromycin, Bactrim DS, Biktarvy. Initial lab workup revealed severe anemia hemoglobin 7.5, MCV 71.1, RDW 21, mild hyponatremia sodium 130, urinalysis revealed leukocyte esterase 3+, WBC 9, RBC 2. Chest x-ray no acute cardiopulmonary disease noted. UDS positive for cannabinoids and amphetamine. Patient tested negative for COVID-19 and influenza type A and B Objective vital signs Vital Sign Date Time Temp Pulse Resp B/P (MAP) Pulse Ox O2 Delivery O2 Flow Rate FiO2 01/04/24 16:54 98.2 84 16 111/59 (76) 98 98.2 01/04/24 08:00 Room Air* 0 21 Total Intake and Output 01/03/24 01/03/24 01/04/24 15:00 23:00 07:00 Intake Total 300 ml 1100 ml Balance 300 ml 1100 ml medications Current Medications Medications Dose Ordered Sig/Era Route Start Time Stop Time Status Last Admin Dose Admin Sodium Chloride 10 ml Q8HR IV 01/03/24 06:00 01/04/24 14:19 10 ML Acetaminophen 650 mg Q6HP PRN PO 01/03/24 01:15 01/03/24 01:44 650 MG Trimethoprim/ Sulfamethoxazole 2 tab Q8HR PO 01/03/24 14:00 01/04/24 14:00 2 TAB Vancomycin HCl 0 ml @ 0 mls/hr UD IV 01/03/24 06:45 Pantoprazole Sodium 40 mg DAILY IV 01/03/24 10:00 01/04/24 09:40 40 MG Sodium Chloride 1,000 ml @ 75 mls/hr [id number] IV 01/03/24 09:30 01/04/24 12:10 75 MLS/HR Vancomycin HCl 200 ml @ 200 mls/hr Q8H IV 01/03/24 17:00 01/04/24 16:54 200 MLS/HR Piperacillin Sod/ Tazobactam Sod 100 ml @ 25 mls/hr Q6H IV 01/03/24 20:00 01/04/24 02:18 25 MLS/HR Iron Sucrose 110 ml @ 110 mls/hr DAILY@1200 IV 01/04/24 12:00 01/06/24 12:59 01/04/24 14:16 110 MLS/HR Ibuprofen 400 mg Q6HP PRN PO 01/04/24 15:45 01/04/24 16:54 400 MG Examination General examination- tired looking, anemic HEENT- PEERLA, no acute nasal discharge Cardiovascular- S1-S2 audible, rate and rhythm regular, no murmur Respiratory- CTAB, no wheeze or rhonchi Gastrointestinal-hepatosplenomegaly++, bowel sound-. Nondistended Musculoskeletal-no acute joint swelling or tenderness or redness# Lower extremity- no leg edema Neurological- cranial nerves intact, no acute dysarthria or dysphagia Psychiatry- denies depression or SI or HI Skin- no acute rash or purpura laboratory and microbiology Laboratory Tests 01/04/24 04:16 Test 01/04/24 04:16 Range/Units Serum Glucose 89 74-106 mg/dL Microbiology Date/Time Source Procedure Growth Status 01/03/24 21:15 Nose MRSA Screen - Final Complete 01/03/24 07:32 Blood Blood Culture - Preliminary NO GROWTH AFTER 24 HOURS OF INCUBATION. Resulted 01/02/24 22:40 Voided Urine Urine Culture - Preliminary Resulted Problem List/Assessment/Plan Problem List/Assessment/Plan # severe anemia due to iron deficiency and HIV Hemoglobin 6.3 1 rbc already given -ordered stool occult blood test -ordered hepatitis panel pending -iron oral #Respiratory symptoms likely due to reactivation of AIDS -ordered ID consult -COVID-19 and influenza test report neg -TMX SMP pcp prophylaxis # diarrhea, non bloody, possible viral diarrhea in AIDS pending Stool CS -IV fluids #Sepsis # UTI -urinalysis positive for leukocyte esterase 2+, WBC 9, RBC 2 -pending urine CS pending blood cultures -continue Zosyn IV as prescribed -continue vancomycin IV as prescribed by pharmacy #AIDS, immunodeficiency -patient noncompliant with the treatment -ordered infectious disease consult -No antiretroviral inpatient Pending CD4+ and viral load # Mycobacterium avium intracellular complex in august 2023 -noncompliant with the treatment --ordered infectious disease consult for further evaluation and care # hepatosplenomegaly Reactive abdominal adenitis Possible due to HIV/ AIDS # substance abuse -UDS positive for amphetamine and cannabinoids -was counseled about the effect of substance abuse on health Goals of care/advance care planning; FULL CODE; discussed with the patient >15 minutes PUD prophylaxis: Not necessary DVT prophylaxis: Patient is ambulating, anemia Plan discussed with Dr. Bansal, nursing staff, patient Total time spent on patient evaluation, chart review, assessment and plan, discussion discussion >30 minutes Plan discussed with: Patient Plan discussed with: Patient, Other (rn) My Orders My Orders Orders - EPIFANIO AVALOS RESIDENT Procedure Category Date Status Time * Dietary Consult CONS 01/03/24 Transmitted 23:52 Pulse Ox Cont Per Day RT 01/04/24 Logged 07:21 Administer Blood ARISTEO 01/04/24 In Process Products 07:21 Soft Diet DIET 01/04/24 Transmitted Dinner Ibuprofen Tablet PHA 01/04/24 In Process (Motrin Tablet) 15:45 Dietary Evaluation Review Comments: 1) Advance pt diet when medically feasible to a High Fiber diet 2) Replace electrolytes as needed 3) Continue current plan of care Expected Outcomes/Goals: 1) Pt diet to advance 2) F/U in 2-3 days CC Plasma Assessment Blood Product Administration S: 1230 Date of Service: Jan 04, 2024 Billing Provider: SHARON BANSAL MD Common Visit Codes: [id number] INP/OBS CARE(HIGH) Coding Comment Comment Attending Attestation I saw and evaluated the patient. I reviewed the residents note and agree with findings and plan as documented in the residents note except as documented below. EPIFANIO AVALOS Jan 04, 2024 17:49 SHARON BANSAL MD Jan 05, 2024 22:02
--- NOTE | 2024-01-04 22:53 | DVHINCON2 ---
Date of service: Jan 03, 2024 Family History: Patient reports no known family medical history. Allergies: Coded Allergies: NO KNOWN ALLERGIES (Unverified , 10/22/20) Home Meds Active Scripts Sulfamethoxazole W/Trimethopri (Bactrim Ds Tablet) 1 Tab Tb, 2 TAB PO Q8HR for 21 Days, #126 TAB Prov:[facility] 07/08/23 Benzonatate (Benzonatate) 100 Mg Cap, 1-2 CAP PO Q4HR, #60 CAP Prov:[facility] 07/08/23 Permethrin (Elimite) 5 % Cre, 1 APPLIC TOP ONCE, #60 GRAMS 1 Refill Prov:TONY NAVARRO 05/13/22 Cephalexin ( Keflex 500) 500 Mg Cap, 1 CAP PO QID, #40 CAP Prov:TONY NAVARRO 05/13/22 Sulfamethoxazole W/Trimethopri (Bactrim Ds Tablet) 1 Tab Tb, 1 TAB PO BID for 10 Days, #20 TAB Prov:TONY NAVARRO 05/13/22 Ibuprofen (Ibuprofen) 800 Mg Tab, 1 TAB PO TID, #30 TAB Prov:TONY NAVARRO 05/13/22 Clindamycin Hcl (Clindamycin Hcl) 300 Mg Cap, 1 CAP PO TID for 10 Days, #21 CAP 0 Refills Prov:AMAYA SÁNCHEZ 11/19/21 Reported Medications Vit W/ Ferrous Fumara ( One Daily) Daily Tab, 1 TAB PO DAILY, #90 TAB 3 Refills 10/22/20 Emtricitabine-Tenofovir Disopr (Truvada) Tab, 1 TAB PO DAILY, #30 TAB 2 Refills 10/22/20 Current Medications Current Medications Medications (Trade) Dose Ordered Sig/Era Route PRN Reason Start Time Stop Time Status Last Admin Iron Sucrose 110 ml @ 110 mls/hr DAILY@1200 IV 01/04/24 12:00 01/04/24 09:49 DC Iron Sucrose 110 ml @ 110 mls/hr DAILY@1200 IV 01/04/24 12:00 01/06/24 12:59 01/04/24 14:16 Ibuprofen (Motrin Tablet) 400 mg Q6HP PRN PO SEVERE PAIN (7-10 PAIN SCALE) 01/04/24 15:45 01/04/24 16:54 Vital Signs Vital Signs Date Time Temp Pulse Resp B/P (MAP) Pulse Ox O2 Delivery O2 Flow Rate FiO2 01/04/24 22:00 97.5 101 19 99/54 (69) 99 97.5 01/04/24 08:00 Room Air* 0 21 Labs/Diagnostic Data Labs Test 01/04/24 08:50 01/04/24 04:16 01/03/24 07:32 01/03/24 04:17 Range/Units Vancomycin Level Trough 14.2 H 5-10 ug/mL White Blood Count 4.5 4.4-10.8 10^3/uL Red Blood Count 2.84 L 4.0-5.20 10^6/uL Hemoglobin 6.3 *L 12.2-16.2 g/dL Hematocrit 20.5 L 36.0-46.0 % Mean Corpuscular Volume 72.2 L 80.0-100.0 fL Mean Corpuscular Hemoglobin 22.3 L 28.0-32.0 pg Mean Corpuscular Hemoglobin Concent 31.0 L 32.0-36.0 g/dL Red Cell Distribution Width 21.4 H 11.8-14.3 % Platelet Count 205 140-450 10^3/uL Mean Platelet Volume 6.7 L 6.9-10.8 fL Neutrophils (%) (Auto) 73.5 37.0-80.0 % Lymphocytes (%) (Auto) 19.9 10.0-50.0 % Monocytes (%) (Auto) 4.8 0.0-12.0 % Eosinophils (%) (Auto) 1.6 0.0-7.0 % Basophils (%) (Auto) 0.2 0.0-2.0 % Neutrophils # (Auto) 3.3 1.6-8.6 10 ^3/uL Lymphocytes # (Auto) 0.9 0.4-5.4 10 ^3/uL Monocytes # (Auto) 0.2 0-1.3 10 ^3/uL Eosinophils # (Auto) 0.1 0-0.8 10 ^3/uL Basophils # (Auto) 0 0-0.2 10 ^3/uL Nucleated Red Blood Cells 0.2 % Sodium Level 129 L 136-145 mmol/L Potassium Level 4.3 3.5-5.1 mmol/L Chloride Level 101 98-107 mmol/L Carbon Dioxide Level 23 20-31 mmol/L Anion Gap 5 5-15 Blood Urea Nitrogen 8 L 9-23 mg/dL Creatinine 0.65 0.550-1.02 mg/dL Glomerular Filtration Rate Calc 122 >90 mL/min BUN/Creatinine Ratio 12.3 10.0-20.0 Serum Glucose 89 74-106 mg/dL Calcium Level 8.0 L 8.7-10.4 mg/dL Total Bilirubin 0.5 0.2-1.0 mg/dL Aspartate Amino Transferase (AST) 15 13-40 U/L Alanine Aminotransferase (ALT) < 9 7-40 U/L Alkaline Phosphatase 67 46-116 U/L Total Protein 6.9 5.7-8.2 g/dL Albumin 2.6 L 3.2-4.8 g/dL Absolute Neutrophils (auto) 2.7 1.4-7.0 x10E3/uL Absolute Lymphocytes (auto) 0.9 0.7-3.1 x10E3/uL Absolute Monocytes (auto) 0.2 0.1-0.9 x10E3/uL Absolute Eosinophils (auto) 0.1 0.0-0.4 x10E3/uL Absolute Basophils (auto) 0.0 0.0-0.2 x10E3/uL Immature Granulocytes % 0 Not Estab. % Immature Granulocytes # 0 0.0-0.1 x10E3/uL Immature Blood Cells . Platelet Estimate Adequate Hypochromasia (manual) Slight Anisocytosis (manual) Slight Microcytosis Slight Reticulocyte Count (auto) 2.43 H 0.5-1.5 % Haptoglobin 236 33-278 mg/dL Hematology Comments . Iron Level 27 L 50-170 ug/dL Total Iron Binding Capacity 281 250-425 ug/dL Percent Iron Saturation 9.6 L 15-50 % Ferritin 114.8 10-291 ng/mL Lactate Dehydrogenase 130 120-246 U/L Vitamin B12 Level 402 211-911 pg/mL Folic Acid 6.46 >5.38 ng/mL Beta HCG, Quantitative 1.9 1.5-4.2 mIU/mL Influenza Type A Antigen Negative Negative Influenza Type B Antigen Negative Negative SARS-CoV-2 Antigen (Rapid) Negative NEGATIVE Test 01/02/24 22:40 Range/Units Urine Color Yellow Yellow Urine Clarity Turbid H Clear Urine pH 6.0 5.0-9.0 Urine Specific [place] 1.021 1.001-1.035 Urine Protein 1+ H Negative Urine Ketones Trace Negative Urine Blood Negative Negative /uL Urine Nitrite Negative Negative Urine Bilirubin Negative Negative Urine Urobilinogen 2 H Negative mg/dL Urine Leukocyte Esterase 2+ Negative /uL Urine RBC 2 0 - 4 /hpf Urine WBC 9 0 - 5 /hpf Urine Squamous Epithelial Cells Few <5 /hpf Urine Calcium Oxalate Crystals Many None Seen Urine Bacteria None seen None Seen /hpf Urine Mucus Few None Seen Urine Glucose Normal Normal mg/dL Urine Opiates Screen Neg NEGATIVE Urine Fentanyl Screen Neg NEGATIVE Urine Barbiturates Screen Neg NEGATIVE Urine Phencyclidine Screen Neg NEGATIVE Urine Amphetamines Screen Pos NEGATIVE Urine Benzodiazepines Screen Neg NEGATIVE Urine Cocaine Screen Neg NEGATIVE Urine Cannabinoids Screen Pos NEGATIVE Microbiology Date/Time Source Procedure Growth Status 01/03/24 21:15 Nose MRSA Screen - Final Complete 01/03/24 07:32 Blood Blood Culture - Preliminary NO GROWTH AFTER 24 HOURS OF INCUBATION. Resulted 01/02/24 22:40 Voided Urine Urine Culture - Preliminary Resulted Problems(with codes): (1) History of HIV or AIDS (2) Hyponatremia (3) Opportunistic infection (4) Scabies exposure (5) Multifocal pneumonia (6) Elevated liver enzymes (7) Severe protein-calorie malnutrition (8) HIV disease Plan/Recommendation ASSESSMENT AND PLAN: ID Problem List: HIV/AIDS - Non-compliance with antiretroviral therapy - 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 female with a past medical history of HIV/AIDS and presumed MAC infection, who presents with flu-like symptoms for the last 7 days, including cough, runny nose, fevers, abdominal pain, headaches, fatigue, dizziness, and night sweats. She also reports green, watery diarrhea for the last 4 days. She was diagnosed with MAC infection on July 31 and was started on ethambutol, Bactrim, and Biktarvy but has been non-compliant with her medications. She does not know her CD4 count. Labs reveal severe anemia (Hgb 7.5), hyponatremia (Na 130), and urine drug screen positive for cannabinoids and amphetamines. CT abdomen/pelvis shows hepatosplenomegaly and numerous clusters of enlarged lymph nodes around the mesenteric root measuring up to 1.7 cm, as well as prominent lymph nodes in the pelvis and groin. Plan: - Hold off on MAC treatment for now. - Hold off on HIV antiretroviral therapy due to headaches. - Provide supportive care: - Transfuse PRBCs if hemoglobin <7 g/dL. - Pain management for abdominal pain. - Antipyretics for fevers. - Further diagnostics: - Obtain Quantiferon-TB Gold test. - Send stool cultures, ova and parasites, and C. difficile testing. - Screen for CMV antibodies due to diarrhea. - Check Cryptococcus antigen. - Obtain AFB cultures from blood, stool, and sputum. - Screen for toxoplasma antigen. - Screen for syphilis, gonorrhea, chlamydia. - Check hepatitis B core IgM antibody. - Monitor patient closely. - Consider starting prednisone after ruling out cryptococcal infection. does not need isolation as suspicion is low Isolation Precautions: Standard Assessment and plan was discussed with the patient as written above Plan is subject to change pending incorporation of new incoming information/diagnostics. Updates may be added as addendum at the bottom (OR TOP) of this note Thank you for interesting consult. ID will continue to follow. Please contact Infectious Disease for any questions or concerns. Beverly Garcia M.D. [facility] Ph: ? History: The patient's chart and medications were reviewed in detail and the patient was seen and examined. History obtained from: patient Татьяна Michelle is a 28 y.o. female with a past medical history of HIV/AIDS and presumed MAC infection, who presents with flu-like symptoms for the last 7 days, including cough, runny nose, fevers, abdominal pain, headaches, fatigue, dizziness, and night sweats. She also reports green, watery diarrhea for the last 4 days. She was diagnosed with MAC infection on July 31 and was started on ethambutol, Bactrim, and Biktarvy but has been non-compliant with her medications. She does not know her CD4 count but acknowledges non-compliance with her regimen. She denies smoking and alcohol use. She uses marijuana and urine drug screen is positive for cannabinoids and amphetamines. No known drug allergies. Review of Systems: A complete 10 system review of systems was completed and negative except as noted in the HPI or here. ROS: - CONSTITUTIONAL: Reports fever, fatigue, night sweats, dizziness. - HEENT: Reports headaches. - RESPIRATORY: Reports cough, runny nose; denies shortness of breath. - CV: Denies chest pain and palpitations. - GI: Reports abdominal pain and green, watery diarrhea. - : Denies dysuria and urinary frequency. - MSK: Denies myalgia and joint pain. - SKIN: Reports pale skin; denies rash and pruritus. - NEUROLOGICAL: Reports headaches and dizziness. - PSYCHIATRIC: Reports agitation. Past Medical History: Diagnosis Date HIV/AIDS Presumed MAC infection diagnosed on 08/01/2023 Anemia Hyponatremia Hepatitis A Positive hepatitis B core antibody Past Surgical History: Cholecystectomy section Tonsillectomy Home Medications: Prior to Admission medications Medication Sig ethambutol Dose unknown, non-compliant. sulfamethoxazole-trimethoprim (BACTRIM) Dose unknown, non-compliant. Biktarvy (bictegravir/emtricitabine/tenofovir alafenamide) Dose unknown, non- compliant. Allergies: No Known Drug Allergies Family History: Family History No pertinent family history on file. Social History: Socioeconomic History Marital status: Not on file Number of children: Not on file Occupational History Not on file Tobacco Use Smoking status: Never Vaping Use Vaping status: Never Used Substance and Sexual Activity Alcohol use: Denies Drug use: Uses marijuana; positive urine drug screen for cannabinoids and amphetamines Sexual activity: Not on file Other Topics Concern Not on file Social History Narrative Not on file Social Determinants of Health Not on file. Objective: Vital Signs on Arrival: Temp: 100.1 F BP: 118/66 mmHg Pulse: 125 bpm Resp: 16 SpO2: 97% on room air Most Recent Vital Signs: Temp: 100.1 F BP: 118/66 mmHg Pulse: 125 bpm Resp: 16 SpO2: 97% on room air Admission Weight: Not provided. Physical Exam: General: Lethargic, agitated, pale appearance. Neck: Supple. No masses. HEENT: PERRL. Normal lids and conjunctiva. Moist mucous membranes. Reports headaches. Heart: Tachycardic at 125 bpm, regular rhythm. No murmur. No lower extremity edema. Lungs: Normal respiratory effort. Clear to auscultation bilaterally. No wheezes. No crackles. Abdomen: Mildly distended. Non-tender. Hepatomegaly and splenomegaly palpable up to 5 cm below costal margin. No masses or abdominal hernia. Msk: No digital cyanosis. Normal strength and tone in all 4 limbs. Skin: Pale. Warm and dry, no rashes. Neuro: Alert but lethargic. No facial droop or slurred speech. Extra-ocular movements intact. Sensation intact to soft touch in all 4 limbs. Psych: Agitated mood. Full affect. Oriented to person, place, time, and situation. Lines: Active Lines No active lines documented. Diagnostic Studies: Available diagnostic studies were reviewed personally. Significant relevant results and findings are outlined below or addressed in the Assessment and Plan above. Pertinent Imaging: Recent Results (from the past 360 hour(s)) CT Abdomen and Pelvis with Contrast - Impression IMPRESSION: 1. Hepatosplenomegaly. 2. Numerous clusters of enlarged lymph nodes around the mesenteric root measuring up to 1.7 cm. 3. Prominent lymph nodes in the pelvis and groin. 4. Clinical correlation with lymphoproliferative process is recommended. Chest X-ray - Impression IMPRESSION: No acute cardiopulmonary disease. Laboratory Findings: - Hemoglobin: 7.5 g/dL (anemia) - Sodium: 130 mEq/L (hyponatremia) - WBC: 9 x10^3/?L - Urine drug screen: Positive for cannabinoids and amphetamines - Negative for COVID-19 and Influenza A Plan discussed with: Patient BEVERLY GARCIA MD Jan 04, 2024 22:53
--- NOTE | 2024-01-04 22:53 | DVHPN2 ---
Consult Progress Note Date Seen: Jan 04, 2024 Subjective Patient reports: Feels better (patient refusing to discuss medical history, has abdominal pain, fevers, headacghes) Objective vital signs Vital Sign Date Time Temp Pulse Resp B/P (MAP) Pulse Ox O2 Delivery O2 Flow Rate FiO2 01/04/24 22:00 97.5 101 19 99/54 (69) 99 97.5 01/04/24 08:00 Room Air* 0 21 Total Intake and Output 01/03/24 01/03/24 01/04/24 15:00 23:00 07:00 Intake Total 300 ml 1100 ml Balance 300 ml 1100 ml medications Current Medications Medications Dose Ordered Sig/Era Route Start Time Stop Time Status Last Admin Dose Admin Sodium Chloride 10 ml Q8HR IV 01/03/24 06:00 01/04/24 21:17 10 ML Acetaminophen 650 mg Q6HP PRN PO 01/03/24 01:15 01/03/24 01:44 650 MG Trimethoprim/ Sulfamethoxazole 2 tab Q8HR PO 01/03/24 14:00 01/04/24 22:17 2 TAB Vancomycin HCl 0 ml @ 0 mls/hr UD IV 01/03/24 06:45 Pantoprazole Sodium 40 mg DAILY IV 01/03/24 10:00 01/04/24 09:40 40 MG Sodium Chloride 1,000 ml @ 75 mls/hr [id number] IV 01/03/24 09:30 01/04/24 12:10 75 MLS/HR Vancomycin HCl 200 ml @ 200 mls/hr Q8H IV 01/03/24 17:00 01/04/24 16:54 200 MLS/HR Piperacillin Sod/ Tazobactam Sod 100 ml @ 25 mls/hr Q6H IV 01/03/24 20:00 01/04/24 20:00 25 MLS/HR Iron Sucrose 110 ml @ 110 mls/hr DAILY@1200 IV 01/04/24 12:00 01/06/24 12:59 01/04/24 14:16 110 MLS/HR Ibuprofen 400 mg Q6HP PRN PO 01/04/24 15:45 01/04/24 16:54 400 MG Physical Exam: General: Lethargic, agitated, pale appearance. Neck: Supple. No masses. HEENT: PERRL. Normal lids and conjunctiva. Moist mucous membranes. Reports headaches. Heart: Tachycardic at 125 bpm, regular rhythm. No murmur. No lower extremity edema. Lungs: Normal respiratory effort. Clear to auscultation bilaterally. No wheezes. No crackles. Abdomen: Mildly distended. Non-tender. Hepatomegaly and splenomegaly palpable up to 5 cm below costal margin. No masses or abdominal hernia. Msk: No digital cyanosis. Normal strength and tone in all 4 limbs. Skin: Pale. Warm and dry, no rashes. Neuro: Alert but lethargic. No facial droop or slurred speech. Extra-ocular movements intact. Sensation intact to soft touch in all 4 limbs. Psych: Agitated mood. Full affect. Oriented to person, place, time, and situation. Lines: Active Lines No active lines documented. laboratory and microbiology Laboratory Tests 01/04/24 04:16 Test 01/04/24 04:16 Range/Units Serum Glucose 89 74-106 mg/dL Problem List/Assessment/Plan Problem List/Assessment/Plan Problems(with codes): (1) History of HIV or AIDS (2) Hyponatremia (3) Opportunistic infection (4) Scabies exposure (5) Multifocal pneumonia (6) Elevated liver enzymes (7) Severe protein-calorie malnutrition (8) HIV disease Plan/Recommendation ASSESSMENT AND PLAN: ID Problem List: HIV/AIDS - Non-compliance with antiretroviral therapy - 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 female with a past medical history of HIV/AIDS and presumed MAC infection, who presents with flu-like symptoms for the last 7 days, including cough, runny nose, fevers, abdominal pain, headaches, fatigue, dizziness, and night sweats. She also reports green, watery diarrhea for the last 4 days. She was diagnosed with MAC infection on July 31 and was started on ethambutol, Bactrim, and Biktarvy but has been non-compliant with her medications. She does not know her CD4 count. Labs reveal severe anemia (Hgb 7.5), hyponatremia (Na 130), and urine drug screen positive for cannabinoids and amphetamines. CT abdomen/pelvis shows hepatosplenomegaly and numerous clusters of enlarged lymph nodes around the mesenteric root measuring up to 1.7 cm, as well as prominent lymph nodes in the pelvis and groin. Plan: - Hold off on MAC treatment for now. - Hold off on HIV antiretroviral therapy due to headaches. will need to test for cryptococcus and toxoplasma - Provide supportive care: - Transfuse PRBCs if hemoglobin <7 g/dL. - Pain management for abdominal pain. - Antipyretics for fevers. - Further diagnostics: - Obtain Quantiferon-TB Gold test. - Send stool cultures, ova and parasites, and C. difficile testing. - Screen for CMV antibodies due to diarrhea. - Check Cryptococcus antigen. - Obtain AFB cultures from blood, stool, and sputum. - Screen for toxoplasma antigen. - Screen for syphilis, gonorrhea, chlamydia. - Check hepatitis B core IgM antibody. - Monitor patient closely. - Consider starting prednisone after ruling out cryptococcal infection. does not need isolation as suspicion is low Isolation Precautions: Standard Assessment and plan was discussed with the patient as written above Plan is subject to change pending incorporation of new incoming information/diagnostics. Updates may be added as addendum at the bottom (OR TOP) of this note Thank you for interesting consult. ID will continue to follow. Please contact Infectious Disease for any questions or concerns. Beverly Garcia M.D. [facility] Ph: ? Plan discussed with: Patient Dietary Evaluation Review Comments: 1) Advance pt diet when medically feasible to a High Fiber diet 2) Replace electrolytes as needed 3) Continue current plan of care Expected Outcomes/Goals: 1) Pt diet to advance 2) F/U in 2-3 days CC Plasma Assessment Blood Product Administration S: [id number] BEVERLY GARCIA MD Jan 04, 2024 22:53
[2024-01-05 00:49] LABS: Basophils # (auto) 0 10 ^3/uL (0-0.2); Monocytes # (auto) 0.2 10 ^3/uL (0-1.3); Monocytes % (auto) 4.9 % (0.0-12.0); Nucleated Red Blood Cells % 0.1 %; Platelet Count (auto) 215 10^3/uL (140-450); White Blood Cell 4.6 10^3/uL (4.4-10.8)
[2024-01-05 00:50] LABS: Basophils % (auto) 0.4 % (0.0-2.0); Eosinophils # (auto) 0 10 ^3/uL (0-0.8); Hematocrit 25.6 % (36.0-46.0); Lymphocytes # (auto) 0.8 10 ^3/uL (0.4-5.4); Lymphocytes % (auto) 16.7 % (10.0-50.0); Mean Corpuscular Hemoglobin 22.8 pg (28.0-32.0); Mean Corpuscular Hgb Conc. 31.3 g/dL (32.0-36.0); Mean Corpuscular Volume 72.9 fL (80.0-100.0); Neutrophils # (auto) 3.6 10 ^3/uL (1.6-8.6)
[2024-01-05 01:00] VITALS: BP 117/66; PULSE 95; RESP 19; TEMP 97.9; O2SAT 100
[2024-01-05] MEDS: SODIUM CHLORIDE 0.9% 500 ML IV ONE (07:41)
[2024-01-05] MEDS: diphenhdrAMINE HCL 50 MG/1 ML VL IV ONE (07:41)
[2024-01-05 07:55] VITALS: PULSE 89; RESP 18; O2SAT 99
[2024-01-05 09:00] VITALS: BP 103/48; PULSE 92; RESP 16; TEMP 97.3; O2SAT 100
[2024-01-05 09:57] LABS: Alkaline Phosphatase 69 U/L (46-116); Anion Gap 7 (5-15); BUN/Creatinine Ratio 13.6 (10.0-20.0); Bilirubin, Total 0.3 mg/dL (0.2-1.0); Carbon Dioxide 22 mmol/L (20-31); Chloride 104 mmol/L (98-107); Glucose 90 mg/dL (74-106)
[2024-01-05 10:07] LABS: Alanine Aminotransferase < 9 U/L (7-40); Albumin 2.6 g/dL (3.2-4.8); Aspartate Aminotransferase 11 U/L (13-40); Blood Urea Nitrogen 8 mg/dL (9-23); Calcium 8.2 mg/dL (8.7-10.4); Sodium 133 mmol/L (136-145)
[2024-01-05 10:22] LABS: LDL Cholesterol 28 mg/dL (< 100)
[2024-01-05 10:24] LABS: Cholesterol 64 mg/dL (< 200)
[2024-01-05 10:32] LABS: HDL Cholesterol < 5 mg/dL (40-59); Triglycerides 157 mg/dL (< 150)
[2024-01-05 10:45] LABS: Hepatitis A Total Antibody Positive (Negative); Hepatitis B Surface Antibody Negative (Negative); Hepatitis B Surface Antigen Negative (Negative); Hepatitis C Antibody Negative (Negative)
[2024-01-05 10:49] LABS: Hepatitis B Core Total AB Positive (Negative)
[2024-01-05 12:00] LABS: Basophils # (auto) 0 10 ^3/uL (0-0.2); Eosinophils # (auto) 0.1 10 ^3/uL (0-0.8); Mean Corpuscular Hemoglobin 22.5 pg (28.0-32.0); Neutrophils # (auto) 3.1 10 ^3/uL (1.6-8.6); White Blood Cell 4.1 10^3/uL (4.4-10.8)
[2024-01-05 12:01] LABS: Basophils % (auto) 0.6 % (0.0-2.0); Eosinophils % (auto) 1.8 % (0.0-7.0); Hematocrit 23.7 % (36.0-46.0); Hemoglobin 7.1 g/dL (12.2-16.2); Lymphocytes # (auto) 0.7 10 ^3/uL (0.4-5.4); Lymphocytes % (auto) 16.3 % (10.0-50.0); Mean Corpuscular Volume 75.2 fL (80.0-100.0); Monocytes # (auto) 0.2 10 ^3/uL (0-1.3); Monocytes % (auto) 4.8 % (0.0-12.0); Neutrophils % (auto) 76.5 % (37.0-80.0); Nucleated Red Blood Cells % 0.1 %; Platelet Count (auto) 210 10^3/uL (140-450); Red Blood Cells 3.15 10^6/uL (4.0-5.20); Red Cell Distribution Width 21.1 % (11.8-14.3)
[2024-01-05 13:00] VITALS: BP 103/79; PULSE 111; RESP 18; TEMP 97.5; O2SAT 99
[2024-01-05] MEDS: MORPHINE SULFATE INJ 2 MG/ml SYRG IV PRN (13:40)
[2024-01-05] MEDS: SENNA 8.6 MG TAB PO ONE (13:51)
--- NOTE | 2024-01-05 16:18 | DVHPNRES ---
Progress Note Date Seen: Jan 05, 2024 Resident Creating Document: EPIFANIO AVALOS RESIDENT Has the PT tested + for MRSA If YES, has PT been informed?: No Medical Necessity Reason Pt with a Central, PICC or Fol: No Subjective Review of Systems Patient is 28 years old female with past medical history of AIDS, immunodeficiency, mac came with a complaint of flu-like symptom for last 7 days with a cough and running nose. As per patient patient has been having flu-like symptoms like cough with whitish mucus and running nose. Patient also endorsed nausea and vomiting 2 times mainly watery content over last 2 days, on further discussion patient reported feeling so tired and fatigued even could not get up from the bed. Patient also endorsed diarrhea for last 4 days, watery greenish color. On further discussion patient also reported feeling dizzy headache and night sweats that has been going on for last several days. 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 Patient is irregular in taking medication over the last several months. Patient taking off and on but not really compliant with the medications. Nephrolithiasis October she has been very irregular in taking medication. Patient reported she was on ethambutol, azithromycin, Bactrim DS, Biktarvy. Initial lab workup revealed severe anemia hemoglobin 7.5, MCV 71.1, RDW 21, mild hyponatremia sodium 130, urinalysis revealed leukocyte esterase 3+, WBC 9, RBC 2. Chest x-ray no acute cardiopulmonary disease noted. UDS positive for cannabinoids and amphetamine. Patient tested negative for COVID-19 and influenza type A and B Objective vital signs Vital Sign Date Time Temp Pulse Resp B/P (MAP) Pulse Ox O2 Delivery O2 Flow Rate FiO2 01/05/24 13:40 89 18 108/55 01/05/24 13:00 97.5 99 97.5 01/05/24 07:55 Room Air* 0 21 Total Intake and Output 01/04/24 01/04/24 01/05/24 15:00 23:00 07:00 Intake Total 420 ml 1270 ml 1000 ml Balance 420 ml 1270 ml 1000 ml medications Current Medications Medications Dose Ordered Sig/Era Route Start Time Stop Time Status Last Admin Dose Admin Sodium Chloride 10 ml Q8HR IV 01/03/24 06:00 01/05/24 14:00 10 ML Acetaminophen 650 mg Q6HP PRN PO 01/03/24 01:15 01/05/24 01:46 650 MG Trimethoprim/ Sulfamethoxazole 2 tab Q8HR PO 01/03/24 14:00 01/05/24 13:51 2 TAB Vancomycin HCl 0 ml @ 0 mls/hr UD IV 01/03/24 06:45 Pantoprazole Sodium 40 mg DAILY IV 01/03/24 10:00 01/05/24 10:14 40 MG Sodium Chloride 1,000 ml @ 75 mls/hr [id number] IV 01/03/24 09:30 01/05/24 01:27 75 MLS/HR Piperacillin Sod/ Tazobactam Sod 100 ml @ 25 mls/hr Q6H IV 01/03/24 20:00 01/05/24 15:10 25 MLS/HR Iron Sucrose 110 ml @ 110 mls/hr DAILY@1200 IV 01/04/24 12:00 01/06/24 12:59 01/04/24 14:16 110 MLS/HR Ibuprofen 400 mg Q6HP PRN PO 01/04/24 15:45 01/04/24 16:54 400 MG Vancomycin HCl 250 ml @ 200 mls/hr Q8H IV 01/05/24 17:00 Morphine Sulfate 1 mg Q8HPRN PRN IV 01/05/24 12:15 01/05/24 13:40 1 MG Polyethylene Glycol 17 gm DAILY PO 01/06/24 10:00 Examination General examination- tired looking, anemic HEENT- PEERLA, no acute nasal discharge Cardiovascular- S1-S2 audible, rate and rhythm regular, no murmur Respiratory- CTAB, no wheeze or rhonchi Gastrointestinal-hepatosplenomegaly++, bowel sound-. Nondistended Musculoskeletal-no acute joint swelling or tenderness or redness# Lower extremity- no leg edema Neurological- cranial nerves intact, no acute dysarthria or dysphagia Psychiatry- denies depression or SI or HI Skin- no acute rash or purpura laboratory and microbiology Laboratory Tests 01/05/24 11:14 01/05/24 08:46 Test 01/05/24 08:46 Range/Units Serum Glucose 90 74-106 mg/dL Microbiology Date/Time Source Procedure Growth Status 01/03/24 21:15 Nose MRSA Screen - Final Complete 01/03/24 07:32 Blood Blood Culture - Preliminary NO GROWTH AFTER 48 HOURS OF INCUBATION. Resulted 01/02/24 22:40 Voided Urine Urine Culture - Final Complete Problem List/Assessment/Plan Problem List/Assessment/Plan # severe anemia due to iron deficiency and HIV Hemoglobin 7.1 1 rbc already given -ordered stool occult blood test - hepatitis panel: past infection of hepatitis B and A -iron IV #Respiratory symptoms likely due to reactivation of AIDS -ordered ID consult -COVID-19 and influenza test report neg -TMX SMP pcp prophylaxis # chronic diarrhea?, non bloody, possible viral diarrhea in AIDS pt is not having bowel pending Stool CS -IV fluids #Sepsis # UTI? -urinalysis positive for leukocyte esterase 2+, WBC 9, RBC 2 - urine CS: possible contamination pending blood cultures -continue Zosyn IV as prescribed -continue vancomycin IV as prescribed by pharmacy #AIDS, immunodeficiency -patient noncompliant with the treatment -ordered infectious disease consult -No antiretroviral inpatient Pending CD4+ and viral load # Mycobacterium avium intracellular complex in august 2023 -noncompliant with the treatment --ordered infectious disease consult for further evaluation and care # hepatosplenomegaly Reactive abdominal adenitis Possible due to HIV/ AIDS # substance abuse -UDS positive for amphetamine and cannabinoids -was counseled about the effect of substance abuse on health Goals of care/advance care planning; FULL CODE; discussed with the patient >15 minutes PUD prophylaxis: Not necessary DVT prophylaxis: Patient is ambulating, anemia Plan discussed with Dr. Bansal, nursing staff, patient Total time spent on patient evaluation, chart review, assessment and plan, discussion discussion >30 minutes Plan discussed with: Patient Plan discussed with: Patient, Other (rn) My Orders My Orders Orders - EPIFANIO AVALOS RESIDENT Procedure Category Date Status Time * Computer Systems Consultant CONS 01/04/24 Transmitted Consult Morphine Sulfate PHA 01/05/24 In Process Injection 12:15 Polyethylene Glycol PHA 01/06/24 In Process 17g Powder (Miralax 10:00 Dietary Evaluation Review Comments: 1) Advance pt diet when medically feasible to a High Fiber diet 2) Replace electrolytes as needed 3) Continue current plan of care Expected Outcomes/Goals: 1) Pt diet to advance 2) F/U in 2-3 days CC Plasma Assessment Blood Product Administration S: 1230 Date of Service: Jan 05, 2024 Billing Provider: SHARON BANSAL MD Common Visit Codes: 11018-IFL/OBS DISCH DAY >30min Coding Comment Comment Attending Attestation I saw and evaluated the patient. I reviewed the residents note and agree with findings and plan as documented in the residents note except as documented below. EPIFANIO AVALOS RESIDENT Jan 05, 2024 16:18 SHARON BANSAL MD Jan 05, 2024 22:03
[2024-01-05] MEDS: VANCOMYCIN 1.25GM/250ML 250 ML IV SCH (17:10)
[2024-01-05 20:00] VITALS: PULSE 107; RESP 18; O2SAT 100
[2024-01-05 21:00] VITALS: BP 102/61; PULSE 108; RESP 18; TEMP 97.7; O2SAT 100
--- NOTE | 2024-01-05 23:25 | DVHPN2 ---
Consult Progress Note Date Seen: Jan 05, 2024 Subjective Patient reports: Feels better (constipated, no BMs since arrival) Objective vital signs Vital Sign Date Time Temp Pulse Resp B/P (MAP) Pulse Ox O2 Delivery O2 Flow Rate FiO2 01/05/24 21:00 97.7 108 18 102/61 (75) 100 97.7 01/05/24 20:00 Room Air* 0 21 Total Intake and Output 01/04/24 01/04/24 01/05/24 15:00 23:00 07:00 Intake Total 420 ml 1270 ml 1000 ml Balance 420 ml 1270 ml 1000 ml medications Current Medications Medications Dose Ordered Sig/Era Route Start Time Stop Time Status Last Admin Dose Admin Sodium Chloride 10 ml Q8HR IV 01/03/24 06:00 01/05/24 22:09 10 ML Acetaminophen 650 mg Q6HP PRN PO 01/03/24 01:15 01/05/24 01:46 650 MG Trimethoprim/ Sulfamethoxazole 2 tab Q8HR PO 01/03/24 14:00 01/05/24 22:09 2 TAB Vancomycin HCl 0 ml @ 0 mls/hr UD IV 01/03/24 06:45 Pantoprazole Sodium 40 mg DAILY IV 01/03/24 10:00 01/05/24 10:14 40 MG Sodium Chloride 1,000 ml @ 75 mls/hr [id number] IV 01/03/24 09:30 01/05/24 01:27 75 MLS/HR Piperacillin Sod/ Tazobactam Sod 100 ml @ 25 mls/hr Q6H IV 01/03/24 20:00 01/05/24 20:00 25 MLS/HR Iron Sucrose 110 ml @ 110 mls/hr DAILY@1200 IV 01/04/24 12:00 01/06/24 12:59 01/04/24 14:16 110 MLS/HR Ibuprofen 400 mg Q6HP PRN PO 01/04/24 15:45 01/05/24 18:38 400 MG Vancomycin HCl 250 ml @ 200 mls/hr Q8H IV 01/05/24 17:00 01/05/24 17:10 200 MLS/HR Morphine Sulfate 1 mg Q8HPRN PRN IV 01/05/24 12:15 01/05/24 13:40 1 MG Polyethylene Glycol 17 gm DAILY PO 01/06/24 10:00 Physical Exam: General: Lethargic, agitated, pale appearance. Neck: Supple. No masses. HEENT: PERRL. Normal lids and conjunctiva. Moist mucous membranes. Reports headaches. Heart: Tachycardic at 125 bpm, regular rhythm. No murmur. No lower extremity edema. Lungs: Normal respiratory effort. Clear to auscultation bilaterally. No wheezes. No crackles. Abdomen: Mildly distended. Non-tender. Hepatomegaly and splenomegaly palpable up to 5 cm below costal margin. No masses or abdominal hernia. Msk: No digital cyanosis. Normal strength and tone in all 4 limbs. Skin: Pale. Warm and dry, no rashes. Neuro: Alert but lethargic. No facial droop or slurred speech. Extra-ocular movements intact. Sensation intact to soft touch in all 4 limbs. Psych: Agitated mood. Full affect. Oriented to person, place, time, and situation. Lines: Active Lines No active lines documented. laboratory and microbiology Laboratory Tests 01/05/24 11:14 01/05/24 08:46 Test 01/05/24 08:46 Range/Units Serum Glucose 90 74-106 mg/dL Problem List/Assessment/Plan Problem List/Assessment/Plan Problem List/Assessment/Plan Problems(with codes): (1) History of HIV or AIDS (2) Hyponatremia (3) Opportunistic infection (4) Scabies exposure (5) Multifocal pneumonia (6) Elevated liver enzymes (7) Severe protein-calorie malnutrition (8) HIV disease Plan/Recommendation ASSESSMENT AND PLAN: ID Problem List: HIV/AIDS - Non-compliance with antiretroviral therapy - 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 female with a past medical history of HIV/AIDS and presumed MAC infection, who presents with flu-like symptoms for the last 7 days, including cough, runny nose, fevers, abdominal pain, headaches, fatigue, dizziness, and night sweats. She also reports green, watery diarrhea for the last 4 days. She was diagnosed with MAC infection on July 31 and was started on ethambutol, Bactrim, and Biktarvy but has been non-compliant with her medications. She does not know her CD4 count. Labs reveal severe anemia (Hgb 7.5), hyponatremia (Na 130), and urine drug screen positive for cannabinoids and amphetamines. CT abdomen/pelvis shows hepatosplenomegaly and numerous clusters of enlarged lymph nodes around the mesenteric root measuring up to 1.7 cm, as well as prominent lymph nodes in the pelvis and groin. Plan: - Hold off on MAC treatment for now. - Hold off on HIV antiretroviral therapy due to headaches. will need to test for cryptococcus and toxoplasma - Provide supportive care: - Transfuse PRBCs if hemoglobin <7 g/dL. - Pain management for abdominal pain. - Antipyretics for fevers. - Further diagnostics: - Obtain Quantiferon-TB Gold test. - Send stool cultures, ova and parasites, and C. difficile testing. - Screen for CMV antibodies due to diarrhea. - Check Cryptococcus antigen. - Obtain AFB cultures from blood, stool, and sputum. - Screen for toxoplasma antigen. - Screen for syphilis, gonorrhea, chlamydia. - Check hepatitis B core IgM antibody. - Monitor patient closely. - Consider starting prednisone after ruling out cryptococcal infection. does not need isolation as suspicion is low Isolation Precautions: Standard Assessment and plan was discussed with the patient as written above Plan is subject to change pending incorporation of new incoming information/diagnostics. Updates may be added as addendum at the bottom (OR TOP) of this note Thank you for interesting consult. ID will continue to follow. Please contact Infectious Disease for any questions or concerns. Beverly Garcia M.D. [facility] Ph: ? Plan discussed with: Patient Dietary Evaluation Review Comments: 1) Advance pt diet when medically feasible to a High Fiber diet 2) Replace electrolytes as needed 3) Continue current plan of care Expected Outcomes/Goals: 1) Pt diet to advance 2) F/U in 2-3 days CC Plasma Assessment Blood Product Administration S: 1230 BEVERLY GARCIA MD Jan 05, 2024 23:25
[2024-01-06] VITALS (7 sets, daily range): BP systolic 105–113; BP diastolic 58–61; PULSE 66–110; RESP 16–20; TEMP 98–98.8; O2SAT 98–99
[2024-01-06 06:56] LABS: Basophils # (auto) 0 10 ^3/uL (0-0.2); Basophils % (auto) 0.5 % (0.0-2.0); Eosinophils # (auto) 0.1 10 ^3/uL (0-0.8); Lymphocytes # (auto) 0.9 10 ^3/uL (0.4-5.4); Monocytes # (auto) 0.2 10 ^3/uL (0-1.3); Nucleated Red Blood Cells % 0.2 %
[2024-01-06 06:58] LABS: Eosinophils % (auto) 1.4 % (0.0-7.0); Hematocrit 22.1 % (36.0-46.0); Mean Corpuscular Hemoglobin 22.8 pg (28.0-32.0); Mean Corpuscular Hgb Conc. 30.8 g/dL (32.0-36.0); Monocytes % (auto) 3.7 % (0.0-12.0); Neutrophils # (auto) 4.6 10 ^3/uL (1.6-8.6); Neutrophils % (auto) 78.4 % (37.0-80.0); Platelet Count (auto) 243 10^3/uL (140-450); Red Blood Cells 2.99 10^6/uL (4.0-5.20); White Blood Cell 5.9 10^3/uL (4.4-10.8)
[2024-01-06 07:08] LABS: Alkaline Phosphatase 69 U/L (46-116); Anion Gap 10 (5-15); Aspartate Aminotransferase 13 U/L (13-40); BUN/Creatinine Ratio 12.5 (10.0-20.0); Bilirubin, Total 0.4 mg/dL (0.2-1.0); Chloride 101 mmol/L (98-107); Glucose 82 mg/dL (74-106); Potassium 4.1 mmol/L (3.5-5.1); Sodium 130 mmol/L (136-145); Total Protein 7.2 g/dL (5.7-8.2)
[2024-01-06 07:09] LABS: Alanine Aminotransferase < 9 U/L (7-40); Albumin 2.8 g/dL (3.2-4.8); Blood Urea Nitrogen 6 mg/dL (9-23); Calcium 8.4 mg/dL (8.7-10.4); Carbon Dioxide 19 mmol/L (20-31); Red Cell Distribution Width 21.4 % (11.8-14.3)
[2024-01-06 07:10] LABS: Hemoglobin 6.8 g/dL (12.2-16.2)
[2024-01-06 07:30] LABS: Anisocytosis Slight; Hypochromia Moderate
[2024-01-06 07:31] LABS: Platelet Estimate Adequate
[2024-01-06] MEDS: POLYETHYLENE GLYCOL 17 GM PWDR PO SCH (09:25)
--- NOTE | 2024-01-06 15:18 | DVHPNRES ---
Progress Note Date Seen: Jan 06, 2024 Resident Creating Document: EPIFANIO AVALOS RESIDENT Has the PT tested + for MRSA If YES, has PT been informed?: No Medical Necessity Reason Pt with a Central, PICC or Fol: No Subjective Review of Systems Patient is 28 years old female with past medical history of AIDS, immunodeficiency, mac came with a complaint of flu-like symptom for last 7 days with a cough and running nose. As per patient patient has been having flu-like symptoms like cough with whitish mucus and running nose. Patient also endorsed nausea and vomiting 2 times mainly watery content over last 2 days, on further discussion patient reported feeling so tired and fatigued even could not get up from the bed. Patient also endorsed diarrhea for last 4 days, watery greenish color. On further discussion patient also reported feeling dizzy headache and night sweats that has been going on for last several days. 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 Patient is irregular in taking medication over the last several months. Patient taking off and on but not really compliant with the medications. Nephrolithiasis October she has been very irregular in taking medication. Patient reported she was on ethambutol, azithromycin, Bactrim DS, Biktarvy. Initial lab workup revealed severe anemia hemoglobin 7.5, MCV 71.1, RDW 21, mild hyponatremia sodium 130, urinalysis revealed leukocyte esterase 3+, WBC 9, RBC 2. Chest x-ray no acute cardiopulmonary disease noted. UDS positive for cannabinoids and amphetamine. Patient tested negative for COVID-19 and influenza type A and B Objective vital signs Vital Sign Date Time Temp Pulse Resp B/P (MAP) Pulse Ox O2 Delivery O2 Flow Rate FiO2 01/06/24 09:57 98 18 109/56 01/06/24 08:15 99 Room Air* 0 21 01/06/24 05:00 98.0 98.0 Total Intake and Output 01/05/24 01/05/24 01/06/24 15:00 23:00 07:00 Intake Total 100 ml 950 ml 1150 ml Balance 100 ml 950 ml 1150 ml medications Current Medications Medications Dose Ordered Sig/Era Route Start Time Stop Time Status Last Admin Dose Admin Sodium Chloride 10 ml Q8HR IV 01/03/24 06:00 01/06/24 06:00 10 ML Acetaminophen 650 mg Q6HP PRN PO 01/03/24 01:15 01/05/24 01:46 650 MG Trimethoprim/ Sulfamethoxazole 2 tab Q8HR PO 01/03/24 14:00 01/06/24 06:00 2 TAB Vancomycin HCl 0 ml @ 0 mls/hr UD IV 01/03/24 06:45 Pantoprazole Sodium 40 mg DAILY IV 01/03/24 10:00 01/06/24 09:25 40 MG Sodium Chloride 1,000 ml @ 75 mls/hr [id number] IV 01/03/24 09:30 01/06/24 04:05 75 MLS/HR Piperacillin Sod/ Tazobactam Sod 100 ml @ 25 mls/hr Q6H IV 01/03/24 20:00 01/06/24 10:30 25 MLS/HR Ibuprofen 400 mg Q6HP PRN PO 01/04/24 15:45 01/05/24 18:38 400 MG Vancomycin HCl 250 ml @ 200 mls/hr Q8H IV 01/05/24 17:00 01/06/24 09:04 200 MLS/HR Morphine Sulfate 1 mg Q8HPRN PRN IV 01/05/24 12:15 01/06/24 09:27 1 MG Polyethylene Glycol 17 gm DAILY PO 01/06/24 10:00 01/06/24 09:25 17 GM Examination General examination- tired looking, anemic HEENT- PEERLA, no acute nasal discharge Cardiovascular- S1-S2 audible, rate and rhythm regular, no murmur Respiratory- CTAB, no wheeze or rhonchi Gastrointestinal-hepatosplenomegaly++, bowel sound-. Nondistended Musculoskeletal-no acute joint swelling or tenderness or redness# Lower extremity- no leg edema Neurological- cranial nerves intact, no acute dysarthria or dysphagia Psychiatry- denies depression or SI or HI Skin- no acute rash or purpura laboratory and microbiology Laboratory Tests 01/06/24 06:21 Test 01/06/24 06:21 Range/Units Serum Glucose 82 74-106 mg/dL Microbiology Date/Time Source Procedure Growth Status 01/03/24 21:15 Nose MRSA Screen - Final Complete 01/03/24 07:32 Blood Blood Culture - Preliminary NO GROWTH AFTER 72 HOURS OF INCUBATION. Resulted 01/02/24 22:40 Voided Urine Urine Culture - Final Complete Problem List/Assessment/Plan Problem List/Assessment/Plan # severe anemia due to iron deficiency and HIV #GI bleeding? Hemoglobin 6.8 2 rbc already given -ordered stool occult blood test - hepatitis panel: past infection of hepatitis B and A -iron IV GI consulted: previous episode of hematochezia #Respiratory symptoms likely due to reactivation of AIDS -ordered ID consult -COVID-19 and influenza test report neg -TMX SMP pcp prophylaxis # chronic diarrhea?, possible viral diarrhea in AIDS pt is not having bowel pending Stool CS -IV fluids laxatives #Sepsis # UTI? -urinalysis positive for leukocyte esterase 2+, WBC 9, RBC 2 - urine CS: possible contamination pending blood cultures: prelim negatives -continue Zosyn IV as prescribed -continue vancomycin IV as prescribed by pharmacy #AIDS, immunodeficiency -patient noncompliant with the treatment -ordered infectious disease consult -No antiretroviral inpatient Pending CD4+ and viral load Per ID: Obtain Quantiferon-TB Gold test. Send stool cultures, ova and parasites, and C. difficile testing. - Screen for CMV antibodies due to diarrhea. - Check Cryptococcus antigen. - Screen for toxoplasma antigen. - Screen for syphilis, gonorrhea, chlamydia. - Check hepatitis B core IgM antibody. 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 # hepatosplenomegaly Reactive abdominal adenitis Possible due to HIV/ AIDS # substance abuse -UDS positive for amphetamine and cannabinoids -was counseled about the effect of substance abuse on health Goals of care/advance care planning; FULL CODE; discussed with the patient >15 minutes PUD prophylaxis: Not necessary DVT prophylaxis: Patient is ambulating, anemia Plan discussed with Dr. Bansal, nursing staff, patient Total time spent on patient evaluation, chart review, assessment and plan, discussion discussion >30 minutes Plan discussed with: Patient Plan discussed with: Patient, Other (rn) My Orders My Orders Orders - EPIFANIO AVALOS RESIDENT Procedure Category Date Status Time Type And Screen BBK 01/06/24 In Process 08:38 Blood Culture IBAN 01/06/24 Logged 09:23 Stool Bacterial IBAN 01/06/24 Logged Culture 09:23 Blood Culture IBAN 01/06/24 Logged 09:24 * [facility] [employer] CONS 11/29/24 Transmitted 11:18 Dietary Evaluation Review Comments: 1) Advance pt diet when medically feasible to a High Fiber diet 2) Replace electrolytes as needed 3) Continue current plan of care Expected Outcomes/Goals: 1) Pt diet to advance 2) F/U in 2-3 days CC Plasma Assessment Blood Product Administration S: 1230 Date of Service: Jan 06, 2024 Billing Provider: SHARON BANSAL MD Common Visit Codes: [id number] INP/OBS CARE(HIGH) EPIFANIO AVALOS RESIDENT Jan 06, 2024 15:18 SHARON BANSAL MD Jan 07, 2024 23:11
--- NOTE | 2024-01-06 17:23 | DVH ---
INDICATION: KNEE EFFUSION RIGHT TECHNIQUE: Multiple grayscale images of the right anterior knee area of interest obtained with color Doppler flow and spectral analysis as needed . FINDINGS /impression: No fluid collection, effusion, masses or vascular abnormalities are noted over the right anterior kne e region area of interest.
--- NOTE | 2024-01-06 17:34 | DVHPNRES ---
Progress Note Has the PT tested + for MRSA If YES, has PT been informed?: No Medical Necessity Reason Pt with a Central, PICC or Fol: No Objective vital signs Vital Sign Date Time Temp Pulse Resp B/P (MAP) Pulse Ox O2 Delivery O2 Flow Rate FiO2 01/06/24 15:52 98.4 100 18 112/58 98.4 01/06/24 08:15 99 Room Air* 0 21 Total Intake and Output 01/05/24 01/05/24 01/06/24 15:00 23:00 07:00 Intake Total 100 ml 950 ml 1150 ml Balance 100 ml 950 ml 1150 ml medications Current Medications Medications Dose Ordered Sig/Era Route Start Time Stop Time Status Last Admin Dose Admin Sodium Chloride 10 ml Q8HR IV 01/03/24 06:00 01/06/24 14:00 10 ML Acetaminophen 650 mg Q6HP PRN PO 01/03/24 01:15 01/05/24 01:46 650 MG Trimethoprim/ Sulfamethoxazole 2 tab Q8HR PO 01/03/24 14:00 01/06/24 16:58 2 TAB Vancomycin HCl 0 ml @ 0 mls/hr UD IV 01/03/24 06:45 Pantoprazole Sodium 40 mg DAILY IV 01/03/24 10:00 01/06/24 09:25 40 MG Sodium Chloride 1,000 ml @ 75 mls/hr [id number] IV 01/03/24 09:30 01/06/24 04:05 75 MLS/HR Piperacillin Sod/ Tazobactam Sod 100 ml @ 25 mls/hr Q6H IV 01/03/24 20:00 01/06/24 10:30 25 MLS/HR Ibuprofen 400 mg Q6HP PRN PO 01/04/24 15:45 01/05/24 18:38 400 MG Vancomycin HCl 250 ml @ 200 mls/hr Q8H IV 01/05/24 17:00 01/06/24 09:04 200 MLS/HR Morphine Sulfate 1 mg Q8HPRN PRN IV 01/05/24 12:15 01/06/24 09:27 1 MG Polyethylene Glycol 17 gm DAILY PO 01/06/24 10:00 01/06/24 09:25 17 GM laboratory and microbiology Laboratory Tests 01/06/24 06:21 Test 01/06/24 06:21 Range/Units Serum Glucose 82 74-106 mg/dL Microbiology Date/Time Source Procedure Growth Status 01/03/24 21:15 Nose MRSA Screen - Final Complete 01/03/24 07:32 Blood Blood Culture - Preliminary NO GROWTH AFTER 72 HOURS OF INCUBATION. Resulted 01/02/24 22:40 Voided Urine Urine Culture - Final Complete Problem List/Assessment/Plan Problem List/Assessment/Plan # severe anemia due to iron deficiency and HIV #GI bleeding? Hemoglobin 6.8 2 rbc already given -ordered stool occult blood test - hepatitis panel: past infection of hepatitis B and A -iron IV GI consulted: previous episode of hematochezia #Respiratory symptoms likely due to reactivation of AIDS -ordered ID consult -COVID-19 and influenza test report neg -TMX SMP pcp prophylaxis # chronic diarrhea?, possible viral diarrhea in AIDS pt is not having bowel pending Stool CS -IV fluids laxatives #Sepsis # UTI? -urinalysis positive for leukocyte esterase 2+, WBC 9, RBC 2 - urine CS: possible contamination pending blood cultures: prelim negatives -continue Zosyn IV as prescribed -continue vancomycin IV as prescribed by pharmacy #AIDS, immunodeficiency -patient noncompliant with the treatment -ordered infectious disease consult -No antiretroviral inpatient Pending CD4+ and viral load Per ID: Obtain Quantiferon-TB Gold test. Send stool cultures, ova and parasites, and C. difficile testing. - Screen for CMV antibodies due to diarrhea. - Check Cryptococcus antigen. - Screen for toxoplasma antigen. - Screen for syphilis, gonorrhea, chlamydia. - Check hepatitis B core IgM antibody. 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 # hepatosplenomegaly Reactive abdominal adenitis Possible due to HIV/ AIDS # substance abuse -UDS positive for amphetamine and cannabinoids -was counseled about the effect of substance abuse on health Goals of care/advance care planning; FULL CODE; discussed with the patient >15 minutes PUD prophylaxis: Not necessary DVT prophylaxis: Patient is ambulating, anemia Plan discussed with Dr. Poon, nursing staff, patient Total time spent on patient evaluation, chart review, assessment and plan, discussion discussion >30 minutes Plan discussed with: Patient My Orders My Orders Orders - EPIFANIO AVALOS RESIDENT Procedure Category Date Status Time Type And Screen BBK 01/06/24 In Process 08:38 Blood Culture IBAN 01/06/24 Logged 09:23 Stool Bacterial IBAN 01/06/24 Logged Culture 09:23 Blood Culture IBAN 01/06/24 Logged 09:24 * [facility] [employer] CONS 01/06/24 Transmitted 11:18 Right Lower Extremity US 01/06/24 Resulted Ultrasou 15:15 Dietary Evaluation Review Comments: 1) Advance pt diet when medically feasible to a High Fiber diet 2) Replace electrolytes as needed 3) Continue current plan of care Expected Outcomes/Goals: 1) Pt diet to advance 2) F/U in 2-3 days CC Plasma Assessment Blood Product Administration S: [id number] EPIFANIO AVALOS RESIDENT Jan 06, 2024 17:34
--- NOTE | 2024-01-06 18:15 | DVHINCON2 ---
GI Consult Consult Note Date of Consultation: 01/06/2024 Chief Complaint: GI bleeding Referring Physician: Christopher History of present illness: Patient is a 28-year-old female with HIV, aids, history of MAC, was noncompliant with her medications, admitted with weakness and fatigue, several days of diarrhea, found to have bright red blood per rectum. Patient complains of abdominal pain. She denies prior history of EGD and/or colonoscopy. Patient denies any dysphagia or hematemesis. She denies any history of hemorrhoids. She denies any family history of gastrointestinal diseases or malignancies. Patient does endorse abdominal pain in the epigastric region. Patient has been having loose stools. She takes antibiotics per ID physician recommendations. Patient describes her diarrhea as loose and watery. Patient was diagnosed with MAC in July of 2023. Patient found to have severe anemia on admission with hemoglobin of 7.5 and MCV of 71 with an RDW of 21. Past Medical History HIV/aids Mac Past Surgical History 1. section 2. Cholecystectomy 3. Tonsillectomy Past Social History Marijuana use, no tobacco or EtOH abuse Current Medications Medications (Trade) Dose Ordered Sig/Era Route Start Time Stop Time Status Last Admin Dose Admin Sodium Chloride (Saline Lock Ns) 10 ml Q8HR IV 01/03/24 06:00 01/06/24 14:00 10 ML Acetaminophen (Tylenol Tablet) 650 mg Q6HP PRN PO 01/03/24 01:15 01/05/24 01:46 650 MG Trimethoprim/ Sulfamethoxazole (Bactrim Ds Tablet) 2 tab Q8HR PO 01/03/24 14:00 01/06/24 16:58 2 TAB Vancomycin HCl 0 ml @ 0 mls/hr UD IV 01/03/24 06:45 Pantoprazole Sodium (Protonix) 40 mg DAILY IV 01/03/24 10:00 01/06/24 09:25 40 MG Sodium Chloride 1,000 ml @ 75 mls/hr [id number] IV 01/03/24 09:30 01/06/24 04:05 75 MLS/HR Piperacillin Sod/ Tazobactam Sod 100 ml @ 25 mls/hr Q6H IV 01/03/24 20:00 01/06/24 10:30 25 MLS/HR Ibuprofen (Motrin Tablet) 400 mg Q6HP PRN PO 01/04/24 15:45 01/05/24 18:38 400 MG Vancomycin HCl 250 ml @ 200 mls/hr Q8H IV 01/05/24 17:00 01/06/24 09:04 200 MLS/HR Morphine Sulfate 1 mg Q8HPRN PRN IV 01/05/24 12:15 01/06/24 09:27 1 MG Polyethylene Glycol (Miralax 17GM Powder) 17 gm DAILY PO 01/06/24 10:00 01/06/24 09:25 17 GM REVIEW OF SYMPTOMS Constitutional: Denies fevers or chills denies weight changes, does complain of fatigue Head: Denies headache or dizziness Lungs: History of MAC, no cough or wheeze GI: See HPI. : No dysuria or hematuria Endo: No diabetes or hypothyroidism Psych: No anxiety or depression or psychosis Skin: No rashes bruises or pruritus Heme: History of anemia no history of malignancy Musculoskeletal: No arthralgias or myalgias or fractures Vital Signs Date Time Temp Pulse Resp B/P (MAP) Pulse Ox O2 Delivery O2 Flow Rate FiO2 01/06/24 15:52 98.4 100 18 112/58 98.4 01/06/24 08:15 99 Room Air* 0 21 Physical exam: General examination-alert and oriented no distress HEENT- PEERLA, oropharynx clear Cardiovascular- regular rate and rhythm Abdomen: Hepatomegaly is present, mild tenderness to palpation Extremity: No clubbing cyanosis or edema Neuro: Cranial nerves grossly intact Labs: Vital Signs Date Time Temp Pulse Resp B/P (MAP) Pulse Ox O2 Delivery O2 Flow Rate FiO2 01/06/24 15:52 98.4 100 18 112/58 98.4 01/06/24 15:30 98.3 99 19 107/61 98.3 01/06/24 09:57 98 18 109/56 01/06/24 09:27 110 19 115/56 01/06/24 08:15 106 17 99 Room Air* 0 21 01/06/24 05:00 98.0 101 16 111/58 (75) 99 98.0 01/06/24 01:00 98.8 66 20 105/59 (74) 98 98.8 01/06/24 00:10 66 20 105/59 01/05/24 23:40 107 18 110/84 01/05/24 21:00 97.7 108 18 102/61 (75) 100 97.7 01/05/24 20:00 107 18 100 Room Air* 0 21 Lab Test 01/06/24 09:45 01/06/24 06:21 Range/Units Cytomegalovirus IgG Antibody Pending Cytomegalovirus IgM Antibody Pending Hepatitis B Core IgM Antibody Pending HIV-1 RNA (PCR) Pending HIV-1 RNA (PCR) log10 Value Pending Toxoplasma gondii IgG Antibody Pending Toxoplasma gondii IgM Antibody Pending White Blood Count 5.9 # 4.4-10.8 10^3/uL Red Blood Count 2.99 L 4.0-5.20 10^6/uL Hemoglobin 6.8 *L 12.2-16.2 g/dL Hematocrit 22.1 L 36.0-46.0 % Mean Corpuscular Volume 74.0 L 80.0-100.0 fL Mean Corpuscular Hemoglobin 22.8 L 28.0-32.0 pg Mean Corpuscular Hemoglobin Concent 30.8 L 32.0-36.0 g/dL Red Cell Distribution Width 21.4 H 11.8-14.3 % Platelet Count 243 140-450 10^3/uL Mean Platelet Volume 6.5 L 6.9-10.8 fL Neutrophils (%) (Auto) 78.4 37.0-80.0 % Lymphocytes (%) (Auto) 16.0 10.0-50.0 % Monocytes (%) (Auto) 3.7 0.0-12.0 % Eosinophils (%) (Auto) 1.4 0.0-7.0 % Basophils (%) (Auto) 0.5 0.0-2.0 % Neutrophils # (Auto) 4.6 1.6-8.6 10 ^3/uL Lymphocytes # (Auto) 0.9 0.4-5.4 10 ^3/uL Monocytes # (Auto) 0.2 0-1.3 10 ^3/uL Eosinophils # (Auto) 0.1 0-0.8 10 ^3/uL Basophils # (Auto) 0 0-0.2 10 ^3/uL Nucleated Red Blood Cells 0.2 % Platelet Estimate Adequate Hypochromasia (manual) Moderate Anisocytosis (manual) Slight Microcytosis Slight Sodium Level 130 L 136-145 mmol/L Potassium Level 4.1 3.5-5.1 mmol/L Chloride Level 101 98-107 mmol/L Carbon Dioxide Level 19 L 20-31 mmol/L Anion Gap 10 5-15 Blood Urea Nitrogen 6 L 9-23 mg/dL Creatinine 0.48 L 0.550-1.02 mg/dL Glomerular Filtration Rate Calc 131 >90 mL/min BUN/Creatinine Ratio 12.5 10.0-20.0 Serum Glucose 82 74-106 mg/dL Calcium Level 8.4 L 8.7-10.4 mg/dL Total Bilirubin 0.4 0.2-1.0 mg/dL Aspartate Amino Transferase (AST) 13 13-40 U/L Alanine Aminotransferase (ALT) < 9 7-40 U/L Alkaline Phosphatase 69 46-116 U/L Total Protein 7.2 5.7-8.2 g/dL Albumin 2.8 L 3.2-4.8 g/dL Rapid Plasma Reagin Pending Cryptococcus Antibody Pending TB Test (QFT) Gold Plus Pending TB Test (QFT) Nil Pending TB Test (QFT) Mitogen Pending TB Test (QFT) Antigen 1 Pending TB Test (QFT) Antigen 2 Pending TB Test (QFT) Criteria Pending Current Medications Medications (Trade) Dose Ordered Sig/Era Route Start Time Stop Time Status Last Admin Polyethylene Glycol (Miralax 17GM Powder) 17 gm DAILY PO 01/06/24 10:00 01/06/24 09:25 Imaging: IMPRESSION: 1. Hepatosplenomegaly. 2. Numerous clustered enlarged lymph nodes along the mesenteric root measuring up to 1.7 cm. There are also prominent lymph nodes in the pelvis and groin. Clinical correlation for a lymphoproliferative process is recommended. Impression: HIV/aids Anemia Lymphadenopathy Diarrhea history of MAC Plan: 1. Patient would benefit from endoscopy and colonoscopy during this hospitalizat ion, not sure if the anemia is due to just bleeding may be multifactorial in nature and given her underlying health condition consider lymphoproliferative disorder 2. Follow H and H and transfuse 3. Continue current medications 4. Stool studies including WBC, ova and parasites, 5. I will follow Date of Service: Jan 06, 2024 Billing Provider: MONIQUE DONIS MD Common Visit Codes: 40360-PVFVCUN INP/OBS CARE (HIGH) Consultation Codes: [id number] CONSULT <60MIN MONIQUE DONIS MD Jan 06, 2024 18:15
--- NOTE | 2024-01-06 23:41 | DVHPN2 ---
Consult Progress Note Date Seen: Jan 06, 2024 Subjective Patient reports: Other (continues to have headache and refusing lumbar puncture , having abdominal pains and general body aches , tachycardic , loose bowel movements ) Objective vital signs Vital Sign Date Time Temp Pulse Resp B/P (MAP) Pulse Ox O2 Delivery O2 Flow Rate FiO2 01/06/24 20:43 100 18 105/67 01/06/24 20:00 99 Room Air* 0 21 01/06/24 18:09 98.6 98.6 Total Intake and Output 01/05/24 01/05/24 01/06/24 15:00 23:00 07:00 Intake Total 100 ml 950 ml 1150 ml Balance 100 ml 950 ml 1150 ml medications Current Medications Medications Dose Ordered Sig/Era Route Start Time Stop Time Status Last Admin Dose Admin Sodium Chloride 10 ml Q8HR IV 01/03/24 06:00 01/06/24 20:14 10 ML Acetaminophen 650 mg Q6HP PRN PO 01/03/24 01:15 01/05/24 01:46 650 MG Trimethoprim/ Sulfamethoxazole 2 tab Q8HR PO 01/03/24 14:00 01/06/24 16:58 2 TAB Vancomycin HCl 0 ml @ 0 mls/hr UD IV 01/03/24 06:45 Pantoprazole Sodium 40 mg DAILY IV 01/03/24 10:00 01/06/24 09:25 40 MG Sodium Chloride 1,000 ml @ 75 mls/hr [id number] IV 01/03/24 09:30 01/06/24 04:05 75 MLS/HR Piperacillin Sod/ Tazobactam Sod 100 ml @ 25 mls/hr Q6H IV 01/03/24 20:00 01/06/24 19:52 25 MLS/HR Ibuprofen 400 mg Q6HP PRN PO 01/04/24 15:45 01/05/24 18:38 400 MG Vancomycin HCl 250 ml @ 200 mls/hr Q8H IV 01/05/24 17:00 01/06/24 22:36 200 MLS/HR Morphine Sulfate 1 mg Q8HPRN PRN IV 01/05/24 12:15 01/06/24 20:13 1 MG Polyethylene Glycol 17 gm DAILY PO 01/06/24 10:00 01/06/24 09:25 17 GM Physical Exam: General: Lethargic, agitated, pale appearance. Neck: Supple. No masses. HEENT: PERRL. Normal lids and conjunctiva. Moist mucous membranes. Reports headaches. Heart: Tachycardic at 125 bpm, regular rhythm. No murmur. No lower extremity edema. Lungs: Normal respiratory effort. Clear to auscultation bilaterally. No wheezes. No crackles. Abdomen: Mildly distended. Non-tender. Hepatomegaly and splenomegaly palpable up to 5 cm below costal margin. No masses or abdominal hernia. Msk: No digital cyanosis. Normal strength and tone in all 4 limbs. Skin: Pale. Warm and dry, no rashes. Neuro: Alert but lethargic. No facial droop or slurred speech. Extra-ocular movements intact. Sensation intact to soft touch in all 4 limbs. Psych: Agitated mood. Full affect. Oriented to person, place, time, and situation laboratory and microbiology Laboratory Tests 01/06/24 20:10 01/06/24 06:21 Test 01/06/24 06:21 Range/Units Serum Glucose 82 74-106 mg/dL Problem List/Assessment/Plan Problems(with codes): (1) Multifocal pneumonia (2) Scabies exposure (3) Elevated liver enzymes (4) Severe protein-calorie malnutrition (5) HIV disease (6) History of HIV or AIDS (7) Opportunistic infection (8) Hyponatremia (9) Insect bite wound (10) Cellulitis of abdominal wall Problem List/Assessment/Plan Problem List/Assessment/Plan Problems(with codes): (1) History of HIV or AIDS (2) Hyponatremia (3) Opportunistic infection (4) Scabies exposure (5) Multifocal pneumonia (6) Elevated liver enzymes (7) Severe protein-calorie malnutrition (8) HIV disease Plan/Recommendation ASSESSMENT AND PLAN: ID Problem List: HIV/AIDS - Non-compliance with antiretroviral therapy - 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 female with a past medical history of HIV/AIDS and presumed MAC infection, who presents with flu-like symptoms for the last 7 days, including cough, runny nose, fevers, abdominal pain, headaches, fatigue, dizziness, and night sweats. She also reports green, watery diarrhea for the last 4 days. She was diagnosed with MAC infection on July 31 and was started on ethambutol, Bactrim, and Biktarvy but has been non-compliant with her medications. She does not know her CD4 count. Labs reveal severe anemia (Hgb 7.5), hyponatremia (Na 130), and urine drug screen positive for cannabinoids and amphetamines. CT abdomen/pelvis shows hepatosplenomegaly and numerous clusters of enlarged lymph nodes around the mesenteric root measuring up to 1.7 cm, as well as prominent lymph nodes in the pelvis and groin. Plan: -Stop vancomycin at this time and continue Zosyn - Hold off on MAC treatment for now. - Hold off on HIV antiretroviral therapy due to headaches. will need to test for cryptococcus and toxoplasma - Provide supportive care: - Transfuse PRBCs if hemoglobin <7 g/dL. - Pain management for abdominal pain. - Antipyretics for fevers. - Further diagnostics: - Obtain Quantiferon-TB Gold test. - Send stool cultures, ova and parasites, and C. difficile testing. - Screen for CMV antibodies due to diarrhea. - Check Cryptococcus antigen. - Obtain AFB cultures from blood, stool, and sputum. - Screen for toxoplasma antigen. - Screen for syphilis, gonorrhea, chlamydia. - Check hepatitis B core IgM antibody. - Monitor patient closely. - Consider starting prednisone after ruling out cryptococcal infection. does not need isolation as suspicion is low Isolation Precautions: Standard Assessment and plan was discussed with the patient as written above Plan is subject to change pending incorporation of new incoming information/diagnostics. Updates may be added as addendum at the bottom (OR TOP) of this note Thank you for interesting consult. ID will continue to follow. Please contact Infectious Disease for any questions or concerns. Beverly Garcia M.D. [facility] Ph: ? Plan discussed with: Other Dietary Evaluation Review Comments: 1) Advance pt diet when medically feasible to a High Fiber diet 2) Replace electrolytes as needed 3) Continue current plan of care Expected Outcomes/Goals: 1) Pt diet to advance 2) F/U in 2-3 days CC Plasma Assessment Blood Product Administration S: 1230 BEVERLY GARCIA MD Jan 06, 2024 23:41
[2024-01-07 03:06] LABS: CMV IgG Antibody >10.00 U/mL (0.00-0.59); CMV IgM Antibody <30.0 AU/mL (0.0-29.9)
[2024-01-07 04:06] LABS: RPR Non Reactive (Non Reactive)
[2024-01-07 08:13] VITALS: PULSE 105; RESP 18; O2SAT 100
[2024-01-07 08:38] VITALS: BP 106/54; PULSE 100; RESP 19; TEMP 98.3; O2SAT 100
--- NOTE | 2024-01-07 08:59 | DVHPNRES ---
Progress Note Date Seen: Jan 07, 2024 Resident Creating Document: EPIFANIO AVALOS RESIDENT Has the PT tested + for MRSA If YES, has PT been informed?: No Medical Necessity Reason Pt with a Central, PICC or Fol: No Subjective Review of Systems Patient is 28 years old female with past medical history of AIDS, immunodeficiency, mac came with a complaint of flu-like symptom for last 7 days with a cough and running nose. As per patient patient has been having flu-like symptoms like cough with whitish mucus and running nose. Patient also endorsed nausea and vomiting 2 times mainly watery content over last 2 days, on further discussion patient reported feeling so tired and fatigued even could not get up from the bed. Patient also endorsed diarrhea for last 4 days, watery greenish color. On further discussion patient also reported feeling dizzy headache and night sweats that has been going on for last several days. 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 Patient is irregular in taking medication over the last several months. Patient taking off and on but not really compliant with the medications. Nephrolithiasis October she has been very irregular in taking medication. Patient reported she was on ethambutol, azithromycin, Bactrim DS, Biktarvy. Initial lab workup revealed severe anemia hemoglobin 7.5, MCV 71.1, RDW 21, mild hyponatremia sodium 130, urinalysis revealed leukocyte esterase 3+, WBC 9, RBC 2. Chest x-ray no acute cardiopulmonary disease noted. UDS positive for cannabinoids and amphetamine. Patient tested negative for COVID-19 and influenza type A and B Objective vital signs Vital Sign Date Time Temp Pulse Resp B/P (MAP) Pulse Ox O2 Delivery O2 Flow Rate FiO2 01/07/24 08:38 98.3 100 19 106/54 (71) 100 98.3 01/06/24 20:00 Room Air* 0 21 Total Intake and Output 01/06/24 01/06/24 01/07/24 15:00 23:00 07:00 Intake Total 350 ml 1950 ml 250 ml Balance 350 ml 1950 ml 250 ml medications Current Medications Medications Dose Ordered Sig/Era Route Start Time Stop Time Status Last Admin Dose Admin Sodium Chloride 10 ml Q8HR IV 01/03/24 06:00 01/07/24 06:05 10 ML Acetaminophen 650 mg Q6HP PRN PO 01/03/24 01:15 01/05/24 01:46 650 MG Trimethoprim/ Sulfamethoxazole 2 tab Q8HR PO 01/03/24 14:00 01/07/24 06:05 2 TAB Vancomycin HCl 0 ml @ 0 mls/hr UD IV 01/03/24 06:45 Pantoprazole Sodium 40 mg DAILY IV 01/03/24 10:00 01/06/24 09:25 40 MG Sodium Chloride 1,000 ml @ 75 mls/hr [id number] IV 01/03/24 09:30 01/06/24 04:05 75 MLS/HR Piperacillin Sod/ Tazobactam Sod 100 ml @ 25 mls/hr Q6H IV 01/03/24 20:00 01/07/24 08:13 25 MLS/HR Ibuprofen 400 mg Q6HP PRN PO 01/04/24 15:45 01/05/24 18:38 400 MG Vancomycin HCl 250 ml @ 200 mls/hr Q8H IV 01/05/24 17:00 01/07/24 06:05 200 MLS/HR Morphine Sulfate 1 mg Q8HPRN PRN IV 01/05/24 12:15 01/07/24 08:19 1 MG Polyethylene Glycol 17 gm DAILY PO 01/06/24 10:00 01/06/24 09:25 17 GM Examination General examination- tired looking, anemic HEENT- PEERLA, no acute nasal discharge Cardiovascular- S1-S2 audible, rate and rhythm regular, no murmur Respiratory- CTAB, no wheeze or rhonchi Gastrointestinal-hepatosplenomegaly++, bowel sound-. Nondistended Musculoskeletal-no acute joint swelling or tenderness or redness# Lower extremity- no leg edema Neurological- cranial nerves intact, no acute dysarthria or dysphagia Psychiatry- denies depression or SI or HI Skin- no acute rash or purpura laboratory and microbiology Laboratory Tests 01/06/24 20:10 01/06/24 06:21 Test 01/06/24 06:21 Range/Units Serum Glucose 82 74-106 mg/dL Microbiology Date/Time Source Procedure Growth Status 01/03/24 21:15 Nose MRSA Screen - Final Complete 01/03/24 07:32 Blood Blood Culture - Preliminary NO GROWTH AFTER 72 HOURS OF INCUBATION. Resulted 11/25/24 22:40 Voided Urine Urine Culture - Final Complete Problem List/Assessment/Plan Problem List/Assessment/Plan # severe anemia due to iron deficiency and HIV #GI bleeding? Hemoglobin 6.8 yesterday 2 rbc already given -ordered stool occult blood test - hepatitis panel: past infection of hepatitis B and A -iron IV GI consulted: endoscopy and colonoscopy in patient #Respiratory symptoms likely due to reactivation of AIDS #MAC reactivation? -ordered ID consult -COVID-19 and influenza test report neg -TMX SMP pcp prophylaxis # chronic diarrhea?, possible viral diarrhea in AIDS pt is not having bowel movements in the hospital but previously she described diarrhea pending Stool CS -IV fluids laxatives #Sepsis? # UTI? -urinalysis positive for leukocyte esterase 2+, WBC 9, RBC 2 - urine CS: possible contamination pending blood cultures: prelim negatives -continue Zosyn IV as prescribed -continue vancomycin IV as prescribed by pharmacy #AIDS, immunodeficiency -patient noncompliant with the treatment -ordered infectious disease consult -No antiretroviral inpatient Pending CD4+ and viral load Per ID: Obtain Quantiferon-TB Gold test. Send stool cultures, ova and parasites, and C. difficile testing. - Screen for CMV antibodies due to diarrhea. - Check Cryptococcus antigen. - Screen for toxoplasma antigen. - Screen for syphilis, gonorrhea, chlamydia. - Check hepatitis B core IgM antibody. 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 # hepatosplenomegaly Reactive abdominal adenitis Possible due to HIV/ AIDS # substance abuse -UDS positive for amphetamine and cannabinoids -was counseled about the effect of substance abuse on health Goals of care/advance care planning; FULL CODE; discussed with the patient >15 minutes Plan discussed with Dr. Jackson, nursing staff, patient Total time spent on patient evaluation, chart review, assessment and plan, discussion discussion >30 minutes Plan discussed with: Patient Plan discussed with: Patient, Other (rn) My Orders My Orders Orders - EPIFANIO AVALOS RESIDENT Procedure Category Date Status Time Blood Culture IBAN 01/06/24 In Process 09:23 Stool Bacterial IBAN 01/06/24 Logged Culture 09:23 Blood Culture IBAN 01/06/24 In Process 09:24 * Gi Dvh Acid Painter CONS 01/06/24 Transmitted 11:18 Right Lower Extremity US 01/06/24 Resulted Ultrasou 15:15 Dietary Evaluation Review Comments: 1) Advance pt diet when medically feasible to a High Fiber diet 2) Replace electrolytes as needed 3) Continue current plan of care Expected Outcomes/Goals: 1) Pt diet to advance 2) F/U in 2-3 days CC Plasma Assessment Blood Product Administration S: 1230 Date of Service: Jan 07, 2024 Billing Provider: VI JACKSON MD Common Visit Codes: [id number] INP/OBS CARE(HIGH) EPIFANIO AVALOS RESIDENT Jan 07, 2024 08:59 VI JACKSON MD Jan 07, 2024 21:52
[2024-01-07 09:59] LABS: Basophils # (auto) 0 10 ^3/uL (0-0.2); Eosinophils # (auto) 0.1 10 ^3/uL (0-0.8); Mean Corpuscular Hemoglobin 24.1 pg (28.0-32.0); Monocytes # (auto) 0.2 10 ^3/uL (0-1.3); Monocytes % (auto) 3.4 % (0.0-12.0); Nucleated Red Blood Cells % 0.1 %
[2024-01-07 10:01] LABS: Basophils % (auto) 0.3 % (0.0-2.0); Hematocrit 29.1 % (36.0-46.0); Hemoglobin 9.1 g/dL (12.2-16.2); Lymphocytes % (auto) 15.6 % (10.0-50.0); Mean Corpuscular Hgb Conc. 31.1 g/dL (32.0-36.0); Mean Corpuscular Volume 77.5 fL (80.0-100.0); Neutrophils % (auto) 79.7 % (37.0-80.0); Platelet Count (auto) 216 10^3/uL (140-450); Red Blood Cells 3.76 10^6/uL (4.0-5.20); Red Cell Distribution Width 22.3 % (11.8-14.3); White Blood Cell 6.3 10^3/uL (4.4-10.8)
[2024-01-07 10:12] LABS: Alkaline Phosphatase 79 U/L (46-116); Anion Gap 9 (5-15); Aspartate Aminotransferase 16 U/L (13-40); Bilirubin, Total 0.4 mg/dL (0.2-1.0); Calcium 8.9 mg/dL (8.7-10.4); Chloride 100 mmol/L (98-107); Glucose 98 mg/dL (74-106); Potassium 3.9 mmol/L (3.5-5.1)
[2024-01-07 10:19] LABS: Alanine Aminotransferase < 9 U/L (7-40); Albumin 3.1 g/dL (3.2-4.8); BUN/Creatinine Ratio 9.1 (10.0-20.0); Blood Urea Nitrogen < 5 mg/dL (9-23); Carbon Dioxide 20 mmol/L (20-31); Sodium 129 mmol/L (136-145); Total Protein 8.3 g/dL (5.7-8.2)
[2024-01-07 10:52] LABS: Anisocytosis Slight; Hypochromia Slight; Platelet Estimate Adequate
[2024-01-07 13:00] VITALS: BP 110/63; PULSE 99; RESP 19; TEMP 97.6; O2SAT 99
[2024-01-07] MEDS: VANCOMYCIN 1.25GM/250ML 250 ML IV SCH (14:07)
[2024-01-07] MEDS: VANCOMYCIN 1GM/250ML KIT 0 ML IV ONE (14:09)
[2024-01-07 17:00] VITALS: BP 100/49; PULSE 48; RESP 15; TEMP 97.6; O2SAT 95
--- NOTE | 2024-01-07 18:59 | PRN ---
Misceleneous Note Note Note January 07, 2024 Subjective: No significant changes. Patient denies any signs of bleeding. She continues to have abdominal pain. Patient also complains of diarrhea and headache. Current Medications Medications (Trade) Dose Ordered Sig/Era Route Start Time Stop Time Status Last Admin Dose Admin Sodium Chloride (Saline Lock Ns) 10 ml Q8HR IV 01/03/24 06:00 01/07/24 14:07 10 ML Acetaminophen (Tylenol Tablet) 650 mg Q6HP PRN PO 01/03/24 01:15 01/05/24 01:46 650 MG Trimethoprim/ Sulfamethoxazole (Bactrim Ds Tablet) 2 tab Q8HR PO 01/03/24 14:00 01/07/24 14:06 2 TAB Vancomycin HCl 0 ml @ 0 mls/hr UD IV 01/03/24 06:45 Cancel Pantoprazole Sodium (Protonix) 40 mg DAILY IV 01/03/24 10:00 01/07/24 09:56 40 MG Sodium Chloride 1,000 ml @ 75 mls/hr [id number] IV 01/03/24 09:30 01/06/24 04:05 75 MLS/HR Ibuprofen (Motrin Tablet) 400 mg Q6HP PRN PO 01/04/24 15:45 01/07/24 14:21 400 MG Morphine Sulfate 1 mg Q8HPRN PRN IV 01/05/24 12:15 01/07/24 08:19 1 MG Polyethylene Glycol (Miralax 17GM Powder) 17 gm DAILY PO 01/06/24 10:00 01/07/24 09:56 17 GM Ceftriaxone Sodium/Dextrose 50 ml @ 50 mls/hr DAILY IV 01/08/24 10:00 Vital Signs Date Time Temp Pulse Resp B/P (MAP) Pulse Ox O2 Delivery O2 Flow Rate FiO2 01/07/24 17:00 97.6 48 15 100/49 (66) 95 97.6 01/07/24 13:00 97.6 99 19 110/63 (79) 99 97.6 01/07/24 09:56 105 18 117/68 01/07/24 08:38 98.3 100 19 106/54 (71) 100 98.3 01/07/24 08:19 105 18 117/68 01/07/24 08:13 105 18 100 Room Air* 0 21 01/06/24 20:43 100 18 105/67 01/06/24 20:13 113 20 105/65 01/06/24 20:00 110 18 99 Room Air* 0 21 Lab Test 01/07/24 08:19 01/06/24 20:10 Range/Units White Blood Count 6.3 4.4-10.8 10^3/uL Red Blood Count 3.76 L 4.0-5.20 10^6/uL Hemoglobin 9.1 #L 12.2-16.2 g/dL Hematocrit 29.1 #L 36.0-46.0 % Mean Corpuscular Volume 77.5 #L 80.0-100.0 fL Mean Corpuscular Hemoglobin 24.1 L 28.0-32.0 pg Mean Corpuscular Hemoglobin Concent 31.1 L 32.0-36.0 g/dL Red Cell Distribution Width 22.3 H 11.8-14.3 % Platelet Count 216 140-450 10^3/uL Mean Platelet Volume 6.7 L 6.9-10.8 fL Neutrophils (%) (Auto) 79.7 37.0-80.0 % Lymphocytes (%) (Auto) 15.6 10.0-50.0 % Monocytes (%) (Auto) 3.4 0.0-12.0 % Eosinophils (%) (Auto) 1.0 0.0-7.0 % Basophils (%) (Auto) 0.3 0.0-2.0 % Neutrophils # (Auto) 5.0 1.6-8.6 10 ^3/uL Lymphocytes # (Auto) 1.0 0.4-5.4 10 ^3/uL Monocytes # (Auto) 0.2 0-1.3 10 ^3/uL Eosinophils # (Auto) 0.1 0-0.8 10 ^3/uL Basophils # (Auto) 0 0-0.2 10 ^3/uL Nucleated Red Blood Cells 0.1 % Platelet Estimate Adequate Hypochromasia (manual) Slight Anisocytosis (manual) Slight Microcytosis Slight Sodium Level 129 L 136-145 mmol/L Potassium Level 3.9 3.5-5.1 mmol/L Chloride Level 100 98-107 mmol/L Carbon Dioxide Level 20 20-31 mmol/L Anion Gap 9 5-15 Blood Urea Nitrogen < 5 L 9-23 mg/dL Creatinine 0.55 0.56 0.550-1.02 mg/dL Glomerular Filtration Rate Calc 127 127 >90 mL/min BUN/Creatinine Ratio 9.1 L 10.0-20.0 Serum Glucose 98 74-106 mg/dL Calcium Level 8.9 8.7-10.4 mg/dL Total Bilirubin 0.4 0.2-1.0 mg/dL Aspartate Amino Transferase (AST) 16 13-40 U/L Alanine Aminotransferase (ALT) < 9 7-40 U/L Alkaline Phosphatase 79 46-116 U/L Total Protein 8.3 H 5.7-8.2 g/dL Albumin 3.1 L 3.2-4.8 g/dL Vancomycin Level Trough 10.3 H 9.2 5-10 ug/mL Current Medications Medications (Trade) Dose Ordered Sig/Era Route Start Time Stop Time Status Last Admin Vancomycin HCl 250 ml @ 200 mls/hr Q8H IV 01/07/24 14:00 01/07/24 16:11 DC 01/07/24 14:07 Physical exam : Alert and oriented x4 no distress normocephalic atraumatic extraocular muscles intact, pupils equal round react light accommodating Regular rate and rhythm Nontender moderate tenderness to palpation diffusely normoactive bowel sounds No clubbing cyanosis or edema Impression: HIV /AIDS', CD4 count pending MAC on antibiotics Microcytic anemia, with no signs of bleeding Lymphadenopathy , differential includes infection versus malignancy Diarrhea stool studies pending Hepatosplenomegaly Possible TB infection studies pending Possible CMV infection Recommendations: 1. Follow labs, awaiting stool studies 2. Hold off on colonoscopy at this time 3. Consider pain control and supportive care 4. Continue antibiotics at this time 5. Follow H&H and transfuse as necessary 6. We will follow MONIQUE DONIS MD Jan 07, 2024 18:58
[2024-01-07 20:00] VITALS: PULSE 104; RESP 18; O2SAT 100
[2024-01-07 21:00] VITALS: BP 115/69; PULSE 104; RESP 16; TEMP 97.8; O2SAT 100
[2024-01-08 05:00] VITALS: BP 104/59; PULSE 104; RESP 18; TEMP 97.6; O2SAT 98
[2024-01-08 05:18] VITALS: TEMP 98
[2024-01-08 08:00] VITALS: PULSE 104; RESP 18; O2SAT 100
[2024-01-08 09:28] VITALS: BP 115/68; PULSE 104; RESP 18
[2024-01-08] MEDS: cefTRIAXone 2GM/50ML D5W 50 ML IV SCH (10:27)
--- NOTE | 2024-01-08 20:20 | DVHDSRES ---
Discharge Summary Date of Admission Resident Creating Document: BYRON LIVINGSTON RESIDENT Jan 03, 2024 at 01:08 Date of Discharge: Jan 08, 2024 Admitting Diagnosis Diarrhea in the setting of patient with probable AIDS Labs/Diagnostic Data: Laboratory Results Test 01/07/24 08:19 01/06/24 09:45 01/06/24 06:21 01/05/24 08:46 White Blood Count 6.3 10^3/uL (4.4-10.8) Red Blood Count 3.76 10^6/uL (4.0-5.20) Hemoglobin 9.1 g/dL (12.2-16.2) Hematocrit 29.1 % (36.0-46.0) Mean Corpuscular Volume 77.5 fL (80.0-100.0) Mean Corpuscular Hemoglobin 24.1 pg (28.0-32.0) Mean Corpuscular Hemoglobin Concent 31.1 g/dL (32.0-36.0) Red Cell Distribution Width 22.3 % (11.8-14.3) Platelet Count 216 10^3/uL (140-450) Mean Platelet Volume 6.7 fL (6.9-10.8) Neutrophils (%) (Auto) 79.7 % (37.0-80.0) Lymphocytes (%) (Auto) 15.6 % (10.0-50.0) Monocytes (%) (Auto) 3.4 % (0.0-12.0) Eosinophils (%) (Auto) 1.0 % (0.0-7.0) Basophils (%) (Auto) 0.3 % (0.0-2.0) Neutrophils # (Auto) 5.0 10 ^3/uL (1.6-8.6) Lymphocytes # (Auto) 1.0 10 ^3/uL (0.4-5.4) Monocytes # (Auto) 0.2 10 ^3/uL (0-1.3) Eosinophils # (Auto) 0.1 10 ^3/uL (0-0.8) Basophils # (Auto) 0 10 ^3/uL (0-0.2) Nucleated Red Blood Cells 0.1 % Platelet Estimate Adequate Hypochromasia (manual) Slight Anisocytosis (manual) Slight Microcytosis Slight Sodium Level 129 mmol/L (136-145) Potassium Level 3.9 mmol/L (3.5-5.1) Chloride Level 100 mmol/L (98-107) Carbon Dioxide Level 20 mmol/L (20-31) Anion Gap 9 (5-15) Blood Urea Nitrogen < 5 mg/dL (9-23) Creatinine 0.55 mg/dL (0.550-1.02) Glomerular Filtration Rate Calc 127 mL/min (>90) BUN/Creatinine Ratio 9.1 (10.0-20.0) Serum Glucose 98 mg/dL (74-106) Calcium Level 8.9 mg/dL (8.7-10.4) Total Bilirubin 0.4 mg/dL (0.2-1.0) Aspartate Amino Transferase (AST) 16 U/L (13-40) Alanine Aminotransferase (ALT) < 9 U/L (7-40) Alkaline Phosphatase 79 U/L (46-116) Total Protein 8.3 g/dL (5.7-8.2) Albumin 3.1 g/dL (3.2-4.8) Vancomycin Level Trough 10.3 ug/mL (5-10) Cytomegalovirus IgG Antibody >10.00 U/mL (0.00-0.59) Cytomegalovirus IgM Antibody <30.0 AU/mL (0.0-29.9) Rapid Plasma Reagin Non reactive (Non Reactive) Triglycerides Level 157 mg/dL (< 150) Cholesterol Level 64 mg/dL (< 200) LDL Cholesterol 28 mg/dL (< 100) HDL Cholesterol < 5 mg/dL (40-59) Test 01/03/24 07:32 01/03/24 04:17 01/02/24 22:40 Absolute Neutrophils (auto) 2.7 x10E3/uL (1.4-7.0) Absolute Lymphocytes (auto) 0.9 x10E3/uL (0.7-3.1) Absolute Monocytes (auto) 0.2 x10E3/uL (0.1-0.9) Absolute Eosinophils (auto) 0.1 x10E3/uL (0.0-0.4) Absolute Basophils (auto) 0.0 x10E3/uL (0.0-0.2) Immature Granulocytes % 0 % (Not Estab.) Immature Granulocytes # 0 x10E3/uL (0.0-0.1) Immature Blood Cells (.) Reticulocyte Count (auto) 2.43 % (0.5-1.5) Haptoglobin 236 mg/dL (33-278) Hematology Comments (.) Iron Level 27 ug/dL (50-170) Total Iron Binding Capacity 281 ug/dL (250-425) Percent Iron Saturation 9.6 % (15-50) Ferritin 114.8 ng/mL (10-291) Lactate Dehydrogenase 130 U/L (120-246) Vitamin B12 Level 402 pg/mL (211-911) Folic Acid 6.46 ng/mL (>5.38) Beta HCG, Quantitative 1.9 mIU/mL (1.5-4.2) Hepatitis A Antibody Total Positive (Negative) Hepatitis B Surface Antigen Negative (Negative) Hepatitis B Surface Antibody Negative (Negative) Hepatitis B Core Total Antibody Positive (Negative) Hepatitis C Antibody Negative (Negative) Influenza Type A Antigen Negative (Negative) Influenza Type B Antigen Negative (Negative) SARS-CoV-2 Antigen (Rapid) Negative (NEGATIVE) Urine Color Yellow (Yellow) Urine Clarity Turbid (Clear) Urine pH 6.0 (5.0-9.0) Urine Specific Dunbar 1.021 (1.001-1.035) Urine Protein 1+ (Negative) Urine Ketones Trace (Negative) Urine Blood Negative /uL (Negative) Urine Nitrite Negative (Negative) Urine Bilirubin Negative (Negative) Urine Urobilinogen 2 mg/dL (Negative) Urine Leukocyte Esterase 2+ /uL (Negative) Urine RBC 2 /hpf (0 - 4) Urine WBC 9 /hpf (0 - 5) Urine Squamous Epithelial Cells Few /hpf (<5) Urine Calcium Oxalate Crystals Many (None Seen) Urine Bacteria None seen /hpf (None Seen) Urine Mucus Few (None Seen) Urine Glucose Normal mg/dL (Normal) Urine Opiates Screen Neg (NEGATIVE) Urine Fentanyl Screen Neg (NEGATIVE) Urine Barbiturates Screen Neg (NEGATIVE) Urine Phencyclidine Screen Neg (NEGATIVE) Urine Amphetamines Screen Pos (NEGATIVE) Urine Benzodiazepines Screen Neg (NEGATIVE) Urine Cocaine Screen Neg (NEGATIVE) Urine Cannabinoids Screen Pos (NEGATIVE) Other Laboratory Tests 01/07/24 08:19 Brief Hx & Hospital Course: Татьяна Michelle is a 28 year-old female patient who presents to ED with chief complaint of generalized weakness, nausea, vomiting and watery greenish diarrhea for the past two days before her admission, associated previously she presents flu-like symptoms. Patient with history of AIDS with MAC pneumonia who currently completing treatment, and who is noncompliant with anti-retroviral medication. Denies palpitation, syncope, chest pain, dyspnea, constipation, bleeding, dysuria, recent travel, sick contacts and motor or sensory deficits. Past medical history: HIV with recently diagnosed AIDS due to MAC pneumonia, completing antibiotic medication for the past month, is noncompliant with medication (was not taking chronically her anti-retroviral medication), anemia Surgical history: Denies Family history: Noncontributory Social history: Lives with [facility]mate in [facility]. Current marijuana, tobacco and amphetamine abuse. Denies current alcohol and other drug abuse. Allergies: Denies Home medication: Does not recall Brief hospital course: Sepsis secondary to possible MAC pneumonia versus UTI versus viral gastroenteritis in the setting of patient with HIV who is noncompliant with anti-retroviral medication associated with anemia, indicating empiric IV antibiotics (Bactrim, vancomycin and Zosyn), IV fluids, 2 units of red blood cells, and IV Protonix. All of patient's cultures (including blood cultures, urine and sputum) were negative, could not obtain stool samples since patient did not collect stool. Infectious disease GI specialist and oncology were consulted during hospital stay, optimizing medical treatment and ordering complementary workup (serologies for for patients at risk of AIDS). Patient during her hospital stay was noncompliant with medical orders (did not obtain stool samples to obtain correct diagnosis, with leave against medical advice to smoke cigarettes and did not abide isolation precautions until ruling out tuberculosis). Patient not medically cleared for discharge, awaiting results of pending serology, CD4 count, and additional complementary workup. She eloped, not abiding isolation until cleared from tuberculosis diagnosis. Nurse informed sure if. Patient is at high-risk of severe infection, sepsis, and even . Patient has poor prognosis. DIAGNOSIS Sepsis secondary to MAC pneumonia/UTI/viral gastroenteritis Severe anemia due to iron deficiency and HIV Probable GI bleed Probable MAC pneumonia Possible viral diarrhea patient with questionable AIDS UTI HIV - Probable AIDS History of MAC pneumonia in august 2023 Hepatosplenomegaly Substance abuse Operations or Procedures CHEST RADIOGRAPH Indication: cough Technique: Single frontal view of the chest was obtained Comparison: None FINDINGS: Lines and Tubes: None Lungs: Clear Pleura: No effusion. No pneumothorax. Cardiomediastinal contours: Unremarkable Bones: Unremarkable IMPRESSION: 1. Clear lungs. ATED BY: DEMETRIUS CRUZ DO DICTATED DATE/TIME: 01/03/[address] ABDOMEN AND PELVIS WITHOUT CONTRAST CLINICAL HISTORY: Abdomen pain. in HIV patient. TECHNIQUE: Multiple contiguous axial images of the abdomen and pelvis without intravenous contrast. The images were reformatted degenerate coronal and sagittal reconstructions. All CT scans at this medical facility are performed using dose modulation techniques as appropriate to a performed exam including the following:Automated exposure control was utilized; adjustment of the MA and/or KV according to patient size; and use of iterative reconstruction technique. Radiation Dose Information: CT Dose: CTDI volume is 11.7 mGy. Dose-length product is 659.63 mGy*cm Comparison: None FINDINGS: Evaluation of the abdomen and pelvis is limited without intravenous contrast. The spleen is enlarged measuring approximately 17 cm in AP diameter. The liver also appears enlarged. The gallbladder is surgically absent. The pancreas, kidneys, adrenal glands, appear within normal limits. There are numerous clustered enlarged lymph nodes along the mesenteric root measuring up to 1.7 cm. There is no free fluid or free air. The stomach grossly appears unremarkable. The small and large bowel loops demonstrate normal caliber. There are scattered diverticula in the colon without evidence of acute diverticulitis. The abdominal aorta and IVC appear within normal limits. The bladder appears unremarkable for the degree of distention. An IUD is seen within the uterus.. There is no gross evidence of a pelvic mass. There are prominent bilateral inguinal lymph nodes . There is also a right external iliac chain lymph node measuring 1.4 cm. There is no free fluid collection. Lung bases are clear. There is no acute osseous abnormality. IMPRESSION: 1. Hepatosplenomegaly. 2. Numerous clustered enlarged lymph nodes along the mesenteric root measuring up to 1.7 cm. There are also prominent lymph nodes in the pelvis and groin. Clinical correlation for a lymphoproliferative process is recommended. HS:Y ATED BY: JUAN CASTRO MD DICTATED DATE/TIME: 01/03/24912 INDICATION: KNEE EFFUSION RIGHT TECHNIQUE: Multiple grayscale images of the right anterior knee area of interest obtained with color Doppler flow and spectral analysis as needed . FINDINGS /impression: No fluid collection, effusion, masses or vascular abnormalities are noted over the right anterior knee region area of interest. ATED BY: DEBBIE BENTON DO DICTATED DATE/TIME: 01/06/24 1720 Condition at Discharge: Undetermined Final Diagnosis/Problems List Sepsis secondary to MAC pneumonia/UTI/viral gastroenteritis Severe anemia due to iron deficiency and HIV Probable GI bleed Probable MAC pneumonia Possible viral diarrhea patient with questionable AIDS UTI HIV - Probable AIDS History of MAC pneumonia in august 2023 Hepatosplenomegaly Substance abuse Discharge Disposition: Eloped SNF Discharge Will this Physician continue t: No Discharge Statement: "Patient was advised to return to the ER or call 911 if any headaches, dizziness, shortness of breath, chest pain, abdominal pain, bleeding, fevers, or worsening of medical condition. Patient was counseled about treatment plan, medications, possible side effects, patientverbalized understanding. All questions were answered to the best of my ability. This discharge took greater then 30 minutes in planning, reviewing documentation, counseling the patient, and discussing with other team members." ASSESSMENT ASSESSMENT Assessment Date of Service: Jan 08, 2024 Billing Provider: VI JACKSON MD Common Visit Codes: 61796-[id number] DISCH DAY <30MIN BYRON LIVINGSTON Jan 08, 2024 20:19 VI JACKSON MD Jan 08, 2024 23:37
--- NOTE | 2024-01-08 23:38 | DVHPN2 ---
Consult Progress Note Date Seen: Jan 07, 2024 Subjective Patient reports: Feels better (+ abdominal pain) Objective vital signs Vital Sign Date Time Temp Pulse Resp B/P (MAP) Pulse Ox O2 Delivery O2 Flow Rate FiO2 01/08/24 09:28 104 18 115/68 01/08/24 08:00 100 Room Air* 0 21 01/08/24 05:18 98.0 Total Intake and Output 01/07/24 01/07/24 01/08/24 15:00 23:00 07:00 Intake Total 700 ml 900 ml Balance 700 ml 900 ml medications Current Medications Medications Dose Ordered Sig/Era Route Start Time Stop Time Status Last Admin Dose Admin Vancomycin HCl 0 ml @ 0 mls/hr UD IV 01/03/24 06:45 Cancel PHYSICAL EXAM: - GENERAL: Alert and oriented x 3. No acute distress. Well-nourished. ? - EYES: EOMI. Anicteric. ?- HENT: Moist mucous membranes. No scleral icterus. No cervical lymphadenopathy. ?- LUNGS: Clear to auscultation bilaterally. No accessory muscle use.? - CARDIOVASCULAR: Regular rate and rhythm. No murmur. No JVD.? - ABDOMEN: Soft, non-tender and non-distended. No palpable masses.? - EXTREMITIES: No edema. Non-tender.?SKIN: No rashes or lesions. Warm. ? - NEUROLOGIC: No focal neurological deficits. CN II-XII grossly intact, but not individually tested.? - PSYCHIATRIC: Cooperative. Appropriate mood and affect. laboratory and microbiology Laboratory Tests 01/07/24 08:19 Test 01/07/24 08:19 Range/Units Serum Glucose 98 74-106 mg/dL Problem List/Assessment/Plan Problem List/Assessment/Plan Problem List/Assessment/Plan Problems(with codes): (1) History of HIV or AIDS (2) Hyponatremia (3) Opportunistic infection (4) Scabies exposure (5) Multifocal pneumonia (6) Elevated liver enzymes (7) Severe protein-calorie malnutrition (8) HIV disease Plan/Recommendation ASSESSMENT AND PLAN: ID Problem List: HIV/AIDS - Non-compliance with antiretroviral therapy - 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 female with a past medical history of HIV/AIDS and presumed MAC infection, who presents with flu-like symptoms for the last 7 days, including cough, runny nose, fevers, abdominal pain, headaches, fatigue, dizziness, and night sweats. She also reports green, watery diarrhea for the last 4 days. She was diagnosed with MAC infection on July 31 and was started on ethambutol, Bactrim, and Biktarvy but has been non-compliant with her medications. She does not know her CD4 count. Labs reveal severe anemia (Hgb 7.5), hyponatremia (Na 130), and urine drug screen positive for cannabinoids and amphetamines. CT abdomen/pelvis shows hepatosplenomegaly and numerous clusters of enlarged lymph nodes around the mesenteric root measuring up to 1.7 cm, as well as prominent lymph nodes in the pelvis and groin. Plan: - continue Zosyn - Hold off on MAC treatment for now while awaiting cyprotoccoccus, AFB, and quantiferon, and toxoplasma serologies - Hold off on HIV antiretroviral therapy due to headaches. will need to test for cryptococcus and toxoplasma - Provide supportive care: - Transfuse PRBCs if hemoglobin <7 g/dL. - Pain management for abdominal pain. - Antipyretics for fevers. - Further diagnostics: - Obtain Quantiferon-TB Gold test. - Send stool cultures, ova and parasites, and C. difficile testing. - Screen for CMV antibodies due to diarrhea. - Check Cryptococcus antigen. - Obtain AFB cultures from blood, stool, and sputum. - Screen for toxoplasma antigen. - Screen for syphilis, gonorrhea, chlamydia. - Check hepatitis B core IgM antibody. - Monitor patient closely. - Consider starting prednisone after ruling out cryptococcal infection. does not need isolation as suspicion is low Isolation Precautions: Standard Assessment and plan was discussed with the patient as written above Plan is subject to change pending incorporation of new incoming information/diagnostics. Updates may be added as addendum at the bottom (OR TOP) of this note Thank you for interesting consult. ID will continue to follow. Please contact Infectious Disease for any questions or concerns. Beverly Garcia M.D. [facility]: ? Plan discussed with: Patient Dietary Evaluation Review Comments: 1) Advance pt diet when medically feasible to a High Fiber diet 2) Replace electrolytes as needed 3) Continue current plan of care Expected Outcomes/Goals: 1) Pt diet to advance 2) F/U in 2-3 days CC Plasma Assessment Blood Product Administration S: [id number] BEVERLY GARCIA MD Jan 08, 2024 23:38
--- NOTE | 2024-01-08 23:38 | DVHPN2 ---
Consult Progress Note Date Seen: Jan 08, 2024 Subjective Patient reports: Feels better (ongoing diarrhea) Objective vital signs Vital Sign Date Time Temp Pulse Resp B/P (MAP) Pulse Ox O2 Delivery O2 Flow Rate FiO2 01/08/24 09:28 104 18 115/68 01/08/24 08:00 100 Room Air* 0 21 01/08/24 05:18 98.0 Total Intake and Output 01/07/24 01/07/24 01/08/24 15:00 23:00 07:00 Intake Total 700 ml 900 ml Balance 700 ml 900 ml medications Current Medications Medications Dose Ordered Sig/Era Route Start Time Stop Time Status Last Admin Dose Admin Vancomycin HCl 0 ml @ 0 mls/hr UD IV 01/03/24 06:45 Cancel PHYSICAL EXAM: - GENERAL: Alert and oriented x 3. No acute distress. Well-nourished. ? - EYES: EOMI. Anicteric. ?- HENT: Moist mucous membranes. No scleral icterus. No cervical lymphadenopathy. ?- LUNGS: Clear to auscultation bilaterally. No accessory muscle use.? - CARDIOVASCULAR: Regular rate and rhythm. No murmur. No JVD.? - ABDOMEN: Soft, non-tender and non-distended. No palpable masses.? - EXTREMITIES: No edema. Non-tender.?SKIN: No rashes or lesions. Warm. ? - NEUROLOGIC: No focal neurological deficits. CN II-XII grossly intact, but not individually tested.? - PSYCHIATRIC: Cooperative. Appropriate mood and affect. laboratory and microbiology Laboratory Tests 01/07/24 08:19 Test 01/07/24 08:19 Range/Units Serum Glucose 98 74-106 mg/dL Problem List/Assessment/Plan Problems(with codes): (1) Hypokalemia (2) (3) Morbid obesity due to excess calories (4) Lab test negative for COVID-19 virus (5) Pneumocystis jiroveci pneumonia (6) Anemia (7) Hyponatremia (8) Opportunistic infection (9) History of HIV or AIDS (10) HIV disease (11) Severe protein-calorie malnutrition (12) Elevated liver enzymes (13) Scabies exposure (14) Multifocal pneumonia (15) Cellulitis of abdominal wall (16) Insect bite wound Problem List/Assessment/Plan Problem List/Assessment/Plan Problems(with codes): (1) History of HIV or AIDS (2) Hyponatremia (3) Opportunistic infection (4) Scabies exposure (5) Multifocal pneumonia (6) Elevated liver enzymes (7) Severe protein-calorie malnutrition (8) HIV disease Plan/Recommendation ASSESSMENT AND PLAN: ID Problem List: HIV/AIDS - Non-compliance with antiretroviral therapy - 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 female with a past medical history of HIV/AIDS and presumed MAC infection, who presents with flu-like symptoms for the last 7 days, including cough, runny nose, fevers, abdominal pain, headaches, fatigue, dizziness, and night sweats. She also reports green, watery diarrhea for the last 4 days. She was diagnosed with MAC infection on July 31 and was started on ethambutol, Bactrim, and Biktarvy but has been non-compliant with her medications. She does not know her CD4 count. Labs reveal severe anemia (Hgb 7.5), hyponatremia (Na 130), and urine drug screen positive for cannabinoids and amphetamines. CT abdomen/pelvis shows hepatosplenomegaly and numerous clusters of enlarged lymph nodes around the mesenteric root measuring up to 1.7 cm, as well as prominent lymph nodes in the pelvis and groin. Plan: -Stop vancomycin at this time and continue Zosyn - Hold off on MAC treatment for now. - Hold off on HIV antiretroviral therapy due to headaches. will need to test for cryptococcus and toxoplasma - Provide supportive care: - Transfuse PRBCs if hemoglobin <7 g/dL. - Pain management for abdominal pain. - Antipyretics for fevers. - Further diagnostics: - Obtain Quantiferon-TB Gold test. - Send stool cultures, ova and parasites, and C. difficile testing. - Screen for CMV antibodies due to diarrhea. - Check Cryptococcus antigen. - Obtain AFB cultures from blood, stool, and sputum. - Screen for toxoplasma antigen. - Screen for syphilis, gonorrhea, chlamydia. - Check hepatitis B core IgM antibody. - Monitor patient closely. - Consider starting prednisone after ruling out cryptococcal infection. does not need isolation as suspicion is low Isolation Precautions: Standard Assessment and plan was discussed with the patient as written above Plan is subject to change pending incorporation of new incoming information/diagnostics. Updates may be added as addendum at the bottom (OR TOP) of this note Thank you for interesting consult. ID will continue to follow. Please contact Infectious Disease for any questions or concerns. Beverly Garcia M.D. [facility] Ph: ? Plan discussed with: Patient Dietary Evaluation Review Comments: 1) Advance pt diet when medically feasible to a High Fiber diet 2) Replace electrolytes as needed 3) Continue current plan of care Expected Outcomes/Goals: 1) Pt diet to advance 2) F/U in 2-3 days CC Plasma Assessment Blood Product Administration S: [id number] BEVERLY GARCIA MD Jan 08, 2024 23:38
[2024-01-10 10:06] LABS: QuantiFERON-TB Gold Plus Negative (Negative)
== END 2024-01-08 16:15 | disposition left against medical advice (07) | DRG 890 ==
LOC: ER 22:10 → EDBD 22:10 → OVERFLOW 01-03 01:08 → WEST WING 01-03 17:40
PROVIDERS: ADMIT Student in an Organized Health Care Education/Training Program; ATTEND Student in an Organized Health Care Education/Training Program
PROC: 30233N1 Transfusion of Nonautologous Red Blood Cells into Peripheral Vein, Percutaneous Approach (ICD-10-PCS; principal; 2024-01-06)
DX: A41.9 Sepsis, unspecified organism (principal); B20 Human immunodeficiency virus [HIV] disease; A31.2 Disseminated mycobacterium avium-intracellulare complex (DMAC); J15.8 Pneumonia due to other specified bacteria; A31.0 Pulmonary mycobacterial infection; E87.1 Hypo-osmolality and hyponatremia; N39.0 Urinary tract infection, site not specified; L03.311 Cellulitis of abdominal wall; K92.2 Gastrointestinal hemorrhage, unspecified; D50.9 Iron deficiency anemia, unspecified; Z20.822 Contact with and (suspected) exposure to COVID-19; E66.01 Morbid (severe) obesity due to excess calories; E87.6 Hypokalemia; A08.4 Viral intestinal infection, unspecified; Z90.49 Acquired absence of other specified parts of digestive tract; Z91.148 Patient's other noncompliance with medication regimen for other reason; Z68.29 Body mass index [BMI] 29.0-29.9, adult; Z79.899 Other long term (current) drug therapy
CPT/HCPCS: 36415; 71045; 74176; 76881; 80053; 80061; 80202; 80307; 81001; 82565; 82607; 82728; 82746; 83010; 83540; 83550; 83615; 84702; 85025; 85045; 86360; 86592; 86641; 86644; 86645; 86704; 86705; 86706; 86708; 86777; 86778; 86803; 86850; 86880; 86900; 86901; 86920; 87040; 87081; 87086; 87340; 87426; 87536; 87804; G0378; J1756; J2470; J2543; Q0162

== ENCOUNTER 2024-04-25 15:35 | Inpatient (IN) | payer MEDICAID ==
[~2024-04-25] VITALS: Ht 167.6 cm; Wt 75.8 kg
--- NOTE | 2024-04-25 15:48 | ED.PDOC ---
HPI (NEURO) HPI Comments 28y F who presents to the ED via EMS for chief complaint of generalized weakness. Per EMS, pt was picked up from [place] and states she has been having diarrhea for the past 2 weeks and states she has been having generalized weakness for the past few days but states this AM, she felt lower extremity weakness and states she was unable to get up from bed and ambulate and called EMS to the scene. Per EMS, pt was noted to be hypotensive and pt was given IV fluids and brought to the ED. Pt in the ED, otherwise is alert and oriented x 4 and no noted changes in vision, gait or speech are noted. Pt denies nausea, vomiting, fever, cough, chills, dysuria, hematuria, or hematemesis. Pt otherwise denies any other symptoms at this time. Time Seen by MD: 15:44 Primary Care Provider: NONE Reviewed Notes: Medications, Allergies Information Source: Patient, Emergency Med Personnel Mode of Arrival: EMS Brought in by: EMS Severity: Moderate Dizziness/Weakness Severity: Unable to do activities Headache Severity: None Timing: Hours Duration: Since onset Prehospital treatment: IVF Weakness Location: (R) Leg, (L) Leg Onset: At rest Circumstances: Spontaneous Symptoms: Weakness History of: Other (HIV) Modifying factors: Nothing Associated Signs and Symptoms: Weakness Past Medical History PAST MEDICAL HISTORY: HIV Surgical History: Cholecystectomy, [employer] History: Denies all [employer] Hx Family History Family History: Reviewed,noncontributory to illness Social History Smoker: Non-Smoker Alcohol: Denies ETOH Use Drugs: Marijuana Lives In: Home Constitutional: reports: weakness; denies: chills, diaphoresis, fatigue, fever, malaise, sweats, others EENTM: denies: blurred vision, double vision, ear bleeding, ear discharge, ear drainage, ear pain, ear ringing, eye pain, eye redness, hearing loss, mouth pain, mouth swelling, nasal discharge, nose bleeding, nose congestion, nose pain, photophobia, tearing, throat pain, throat swelling, voice changes, others Respiratory: denies: cough, hemoptysis, orthopnea, SOB at rest, shortness of breath, SOB with excertion, stridor, wheezing, others Cardiovascular: denies: chest pain, dizzy spells, diaphoresis, Dyspnea on exertion, edema, irregular heart beat, left arm pain, lightheadedness, palpitations, PND, syncope, others Gastrointestinal: reports: diarrhea; denies: abdomen distended, abdominal pain, blood streaked bowels, constipated, dysphagia, difficulty swallowing, hematemesis, melena, nausea, poor appetite, poor fluid intake, rectal bleeding, rectal pain, vomiting, others Genitourinary: denies: abnormal vagina bleeding, burning, dyspareunia, dysuria, flank pain, frequency, hematuria, incontinence, pain, , vagina discharge, urgency, others Neurological: reports: weakness; denies: dizziness, fainting, headache, left sided numbness, left sided weakness, numbness, paresthesia, pre-existing deficit, right sided numbness, right sided weakness, seizure, speech problems, tingling, tremors, others Musculoskeletal: denies: back pain, gout, joint pain, joint swelling, muscle pain, muscle stiffness, neck pain, others Integumetry: denies: bruises, change in color, change in hair/nails, dryness, laceration, lesions, lumps, rash, wounds, others Allergic/Immunocompromised: denies: Difficulty Healing, Frequent Infections, Hives, Itching, others Hematologic/Lymphatic: denies: anemia, blood clots, easy bleeding, easy bruising, swollen glands, others Endocrine: denies: excessive hunger, excessive sweating, excessive thirst, excessive urination, flushing, intolerance to cold, intolerance to heat, unexplained weight gain, unexplained weight loss, others Psychiatric: denies: anxiety, bipolar disorder, depression, hopeless, panic disorder, schizophrenia, sleepless, suicidal, others All Other Systems: Reviewed and Negative Physical Exam General Appearance: Moderate Distress HEENT: Pale Conjuntivae (L), Pale Conjuntivae (R), Pharynx Normal, TMs Normal Neck: Full Range of Motion, Non-Tender, Normal, Normal Inspection Respiratory: Chest Non-Tender, Lungs Clear, No Accessory Muscle Use, No Respiratory Distress, Normal Breath Sounds Cardiovascular: No Edema, No JVD, No Murmur, No Gallop, Normal Peripheral Pulses, Regular Rate/Rhythm Breast Exam: Deferred Gastrointestinal: No Organomegaly, Non Tender, No Pulsatile Mass, Normal Bowel Sounds, Soft Genitalia: Deferred Pelvic: Deferred Rectal: Deferred Extremities: No calf tenderness, Normal capillary refill, No pedal edema Musculoskeletal : Apperance: Normal Neurologic: Alert, hop weigher II-XII nml as Tested, Motor Weakness, Normal Affect, Normal Mood, No Sensory Deficits Cerebellar Function: Normal Reflexes: Normal Skin: Dry, Pallor, Warm Lymphatic: No Adenopathy Was a procedure done? Was a procedure done?: No Differential Diagnosis (SZ) Seizure: N/A General Weakness: Anemia, Dehydration, Electrolyte imbalance, Encephalopathy, Hypoglycemia, Hypotension, Hypovolemia, Other (anemia, TB, diverticulitis, advanced HIV) X-Ray, Labs, Meds, VS Vital Signs Date Time Temp Pulse Resp B/P (MAP) Pulse Ox O2 Delivery O2 Flow Rate FiO2 04/25/24 15:35 98.3 120 20 97/54 (68) 100 98.3 Lab Test 04/25/24 16:21 Range/Units White Blood Count 1.9 L 4.4-10.8 10^3/uL Red Blood Count 2.27 L 4.0-5.20 10^6/uL Hemoglobin 6.5 *L 12.2-16.2 g/dL Hematocrit 20.6 L 36.0-46.0 % Mean Corpuscular Volume 91.2 80.0-100.0 fL Mean Corpuscular Hemoglobin 28.6 28.0-32.0 pg Mean Corpuscular Hemoglobin Concent 31.4 L 32.0-36.0 g/dL Red Cell Distribution Width 20.8 H 11.8-14.3 % Platelet Count 185 140-450 10^3/uL Mean Platelet Volume 8.1 6.9-10.8 fL Neutrophils (%) (Auto) 37.0-80.0 % Lymphocytes (%) (Auto) 10.0-50.0 % Monocytes (%) (Auto) 0.0-12.0 % Basophils (%) (Auto) 0.0-2.0 % Neutrophils # (Auto) 1.6-8.6 10 ^3/uL Lymphocytes # (Auto) 0.4-5.4 10 ^3/uL Monocytes # (Auto) 0-1.3 10 ^3/uL Differential Total Cells Counted Pending Neutrophils % (Manual) Pending Band Neutrophils % (Manual) Pending Lymphocytes % (Manual) Pending Monocytes % (Manual) Pending Eosinophils % (Manual) Pending Basophils % (Manual) Pending Metamyelocytes % (manual) Pending Myelocytes % (Manual) Pending Promyelocytes % (Manual) Pending Blast Cells % (Manual) Pending Reactive Lymphocytes Pending Platelet Estimate Pending Sodium Level 129 L 136-145 mmol/L Potassium Level 3.1 L 3.5-5.1 mmol/L Chloride Level 102 98-107 mmol/L Carbon Dioxide Level 15 L 20-31 mmol/L Anion Gap 12 5-15 Blood Urea Nitrogen 6 L 9-23 mg/dL Creatinine 0.32 L 0.550-1.02 mg/dL Glomerular Filtration Rate Calc 145 >90 mL/min BUN/Creatinine Ratio 18.8 10.0-20.0 Serum Glucose 100 74-106 mg/dL Calcium Level 6.9 L 8.7-10.4 mg/dL Total Bilirubin 0.5 0.2-1.0 mg/dL Aspartate Amino Transferase (AST) 17 13-40 U/L Alanine Aminotransferase (ALT) < 9 7-40 U/L Alkaline Phosphatase 38 L 46-116 U/L Total Protein 6.1 5.7-8.2 g/dL Albumin 1.9 L 3.2-4.8 g/dL The patient's chemistry panel shows hypokalemia at 3.1 The CO2 level is 15 The CBC shows a hemoglobin of 6.5 and hematocrit of 20.6 The patient was diarrhea so we did order a C diff. The patient was typed and screened and is being given packed red blood cells. Patient was also hyponatremic at 1:29 a.m. The patient was being admitted at this time The patient was a little hypotensive so was given a normal saline bolus The patient was being admitted Time of 1ST Reevaluation: 16:15 Reevaluation 1ST: Unchanged Patient Education/Counseling: Diagnosis, Treatment, Prognosis Family Education/Counseling: No Family Present Departure 1 Departure Time of Disposition: 17:29 Impression: Primary Impression: History of HIV or AIDS Additional Impressions: Generalized weakness Diarrhea Qualified Codes: R19.7 - Diarrhea, unspecified Severe anemia Disposition: ADMITTED INPATIENT Admit to: [facility] Condition: Fair Critical Care Note Critical Care Time?: Yes (45 min-critical care time only) Stability Stability form required: Yes Unstable for transfer: Telemetry monitoring (Telemetry monitoring required), ED Physician Assesment (Clinical assesment) Heart Score Heart Score: Heart Score Response (Comments) Value History N/A 0 EKG N/A 0 Age N/A 0 Risk Factors N/A 0 Troponin N/A 0 Total 0 I personally scribed for JUDE ZELAYA MD ([email or web address]) on 04/25/24 at 15:48. Electronically submitted by Ruthie Downs ([email or web address]). JUDE ZELAYA MD Apr 25, 2024 15:48
[2024-04-25 16:49] LABS: Hematocrit 20.6 % (36.0-46.0); Mean Corpuscular Hemoglobin 28.6 pg (28.0-32.0); Mean Corpuscular Hgb Conc. 31.4 g/dL (32.0-36.0); Mean Corpuscular Volume 91.2 fL (80.0-100.0); Platelet Count (auto) 185 10^3/uL (140-450); Red Blood Cells 2.27 10^6/uL (4.0-5.20)
[2024-04-25 16:50] LABS: Red Cell Distribution Width 20.8 % (11.8-14.3); White Blood Cell 1.9 10^3/uL (4.4-10.8)
[2024-04-25 16:56] LABS: Hemoglobin 6.5 g/dL (12.2-16.2)
[2024-04-25 16:58] LABS: Band Neutrophils % (manual) 0; Basophils % (manual) 0 (0.0-2.0); Blast Cells 0; Eosinophils % (manual) 0 (0-7); Metamyelocytes % 0; Myelocytes % 0; Promyelocytes % 0; Reactive Lymphocytes 0
[2024-04-25 17:04] LABS: Anion Gap 12 (5-15); Aspartate Aminotransferase 17 U/L (13-40); BUN/Creatinine Ratio 18.8 (10.0-20.0); Chloride 102 mmol/L (98-107); Glucose 100 mg/dL (74-106); Total Protein 6.1 g/dL (5.7-8.2)
--- NOTE | 2024-04-25 17:04 | DVH ---
Exam: CT CT AB PEL WO CON-NO ORAL OR IV History: pain Comparison Study: CT CT AB PEL WO CON-NO ORAL OR IV on DOS: 01/03/24 Technique: Multidetector spiral CT of the abdomen and pelvis was performed from lung bases to pubic symphysis. Imaging was performed without IV contrast. Axial, coronal and sagittal multiplanar reform ats were obtained from the axial data set by the technologist. Radiation dose : Abdomen/Pelvis: CTDIvol 5.75 mGy, DLP 368.18 mGy*cm. Findings: Evaluation of solid organs is limited due to lack of intravenous contrast use. Lung Bases: Atelectasis in the lungs. Small pericardial effusion. Liver: The liver is normal in size. No focal lesions. Gallbladder and biliary Tree: Gallbladder is surgically absent. Spleen: Enlarged Pancreas: The pancreas is grossly normal in appearance. Adrenal Glands: Unremarkable Kidneys: Punctate right renal calculus. Mild right hydronephrosis. No obstructing calculus identifi ed. No left hydronephrosis. Bladder: Grossly unremarkable for degree of distention. Bowel: The stomach is grossly normal in appearance. Small bowel and colon are normal in caliber and d istribution. The appendix is not visualized; however, no secondary findings of acute appendicitis aimee ntified. Diffuse small bowel wall thickening noted. Ascites: Absent Lymphadenopathy: Extensive retroperitoneal and mesenteric lymphadenopathy. Bilateral inguinal lymphad enopathy. Abdominal wall and Mesentery: Diffuse anasarca. Vasculature: The visualized abdominal aorta is normal in size and caliber. Evaluation of abdominal a nd pelvic vessels is limited due to lack of intravenous contrast. Pelvic Organs: Intrauterine device in place. Musculoskeletal: No aggressive focal bony lesions, acute fractures or dislocation. IMPRESSION: 1. Limited exam without intravenous contrast. Small pericardial effusion. 2. Marked splenomegaly. Extensive retroperitoneal and mesenteric lymphadenopathy appears worse compar ed to prior. Findings are concerning for lymphoproliferative disorder. Ultrasound-guided biopsy of th e inguinal lymph node could be performed for tissue diagnosis. 3. Diffuse small bowel wall thickening is nonspecific. Could be due to an infectious or inflammatory process. Infiltrative disease could have a similar appearance. Edema would also be in the different ial. Clinical correlation and continued follow-up is recommended. This could be further evaluated wit h small-bowel follow-through. 4. Punctate right renal calculus. Mild right hydronephrosis. No definite obstructing calculus ident ified. This could be further evaluated with CT urogram. Radiation optimization: All CT scans at this facility use at least one of these dose optimization jarad hniques: Automated exposure control mA and/or kV adjustment per patient size (includes targeted exams where dose is matched to clinical indication) or iterative reconstruction. HS:Y
[2024-04-25 17:05] LABS: Bilirubin, Total 0.5 mg/dL (0.2-1.0)
[2024-04-25 17:10] LABS: Alanine Aminotransferase < 9 U/L (7-40); Albumin 1.9 g/dL (3.2-4.8); Alkaline Phosphatase 38 U/L (46-116); Blood Urea Nitrogen 6 mg/dL (9-23); Calcium 6.9 mg/dL (8.7-10.4); Carbon Dioxide 15 mmol/L (20-31); Potassium 3.1 mmol/L (3.5-5.1); Sodium 129 mmol/L (136-145)
[2024-04-25 17:28] LABS: Anisocytosis Slight; Lymphocytes % (manual) 28 (10.0-50.0); Monocytes % (manual) 11 (0-12); Platelet Estimate Adequate
[2024-04-25] MEDS: ONDANSETRON HCL 4 MG/2 ML VIAL IV ONE (17:30)
[2024-04-25 17:45] VITALS: PULSE 114; RESP 20; O2SAT 99
[2024-04-25 18:22] LABS: Urine Bacteria FEW /hpf (None Seen); Urine Blood 1+ /uL (Negative); Urine Clarity Turbid (Clear); Urine Color Yellow (Yellow); Urine Mucus FEW (None Seen); Urine Protein, UAD 1+ (Negative); Urine Specific Gravity 1.023 (1.001-1.035); Urine Squamous Epithelial Cell FEW /hpf (<5); Urine Urobilinogen Normal (Negative); Urine WBC 4 /HPF (0-5)
[2024-04-25] MEDS: SODIUM CHLORIDE 0.9% 1,000 ML IV ONE (18:32)
[2024-04-25 19:45] VITALS: PULSE 111; RESP 24; O2SAT 100
[2024-04-25] MEDS ORDERED: MORPHINE SULFATE INJ 2 MG/ml SYRG IV PRN (22:15)
--- NOTE | 2024-04-25 22:37 | DVHHPRES ---
History of Present Illness Resident Creating Document: KADEEM CROCKETT RESIDENT Reason for Visit: persistent diarrhea History of Present Illness Patient is a 28 year old female with a history of HIV and MAC presenting to the ED with a 2 weeks history of diarrhea and weakness. Patient was recently admitted at [place] for similar persistent diarrhea. Patient said she is very compliant with her anti-retroviral medications and follows up with an ID physican ( (Dr. Fulton) for many year. She also reports feeling very weak and unable to do any thing thus prompting this visit. In the ED, Hgb: 6.5 and she was positive for UTI and electrolytes abnormalities. PMhX: Anemia, HIV, MAC, hyponatremia, and malnutrition, diarrrhea, Pshx: 4 c-sections Family history: Noncontributory Social history: lives at home with boyfriend Review of Systems Allergies: Coded Allergies: NO KNOWN ALLERGIES (Unverified , 10/22/20) Exam Vital Signs Vital Signs Date Time Temp Pulse Resp B/P (MAP) Pulse Ox O2 Delivery O2 Flow Rate FiO2 04/25/24 20:00 112 04/25/24 19:40 98.2 29 96/52 (67) 100 98.2 04/25/24 17:45 Room Air* 0 21 Exam General Appearance: Alert, Oriented X3, Cooperative, No acute distress. No lice or scabies xie seen HEENT: Atraumatic, PERRLA, EOMI, Mucous membrane dry/pale Respiratory: Clear to auscultation, Normal air movement Cardiovascular: Regular rate, Normal S1, Normal S2, No murmurs, no chest wall tenderness Abdominal: NO distention, no tenderness, bowel sounds present, no scars noted, hepatosplenomegaly palpated Extremities: No clubbing, No cyanosis, No edema, Normal pulses, No tenderness/swelling Skin: No rashes, No breakdown, No significant lesion Neuro: Normal gait, Normal speech, Strength at 5/5 X4 ext, Normal tone, Sensati on intact, Cranial nerves 3-12 NL, Reflexes 2+ Psych/Mental Status: Mental status NL, Mood NL Labs/Xrays Labs Test 04/25/24 17:30 04/25/24 16:21 Range/Units Urine Color Yellow Yellow Urine Clarity Turbid H Clear Urine pH 6.0 5.0-9.0 Urine Specific [place] 1.023 1.001-1.035 Urine Protein 1+ H Negative Urine Ketones 1+ H Negative Urine Blood 1+ H Negative /uL Urine Nitrite Negative Negative Urine Bilirubin Negative Negative Urine Urobilinogen Normal Negative mg/dL Urine Leukocyte Esterase 1+ Negative /uL Urine RBC 1 0 - 4 /hpf Urine Microscopic WBC 4 0-5 /HPF Urine Squamous Epithelial Cells Few <5 /hpf Urine Calcium Oxalate Crystals Many None Seen Urine Bacteria Few H None Seen /hpf Urine Mucus Few None Seen Urine Glucose Normal Normal mg/dL White Blood Count 1.9 L 4.4-10.8 10^3/uL Red Blood Count 2.27 L 4.0-5.20 10^6/uL Hemoglobin 6.5 *L 12.2-16.2 g/dL Hematocrit 20.6 L 36.0-46.0 % Mean Corpuscular Volume 91.2 80.0-100.0 fL Mean Corpuscular Hemoglobin 28.6 28.0-32.0 pg Mean Corpuscular Hemoglobin Concent 31.4 L 32.0-36.0 g/dL Red Cell Distribution Width 20.8 H 11.8-14.3 % Platelet Count 185 140-450 10^3/uL Mean Platelet Volume 8.1 6.9-10.8 fL Neutrophils (%) (Auto) 37.0-80.0 % Lymphocytes (%) (Auto) 10.0-50.0 % Monocytes (%) (Auto) 0.0-12.0 % Basophils (%) (Auto) 0.0-2.0 % Neutrophils # (Auto) 1.6-8.6 10 ^3/uL Lymphocytes # (Auto) 0.4-5.4 10 ^3/uL Monocytes # (Auto) 0-1.3 10 ^3/uL Differential Total Cells Counted 100.0 100 Neutrophils % (Manual) 61 37.0-80.0 Band Neutrophils % (Manual) 0 Lymphocytes % (Manual) 28 10.0-50.0 Monocytes % (Manual) 11 0-12 Eosinophils % (Manual) 0 0-7 Basophils % (Manual) 0 0.0-2.0 Metamyelocytes % (manual) 0 Myelocytes % (Manual) 0 Promyelocytes % (Manual) 0 Blast Cells % (Manual) 0 Reactive Lymphocytes 0 Platelet Estimate Adequate Anisocytosis (manual) Slight Sodium Level 129 L 136-145 mmol/L Potassium Level 3.1 L 3.5-5.1 mmol/L Chloride Level 102 98-107 mmol/L Carbon Dioxide Level 15 L 20-31 mmol/L Anion Gap 12 5-15 Blood Urea Nitrogen 6 L 9-23 mg/dL Creatinine 0.32 L 0.550-1.02 mg/dL Glomerular Filtration Rate Calc 145 >90 mL/min BUN/Creatinine Ratio 18.8 10.0-20.0 Serum Glucose 100 74-106 mg/dL Calcium Level 6.9 L 8.7-10.4 mg/dL Total Bilirubin 0.5 0.2-1.0 mg/dL Aspartate Amino Transferase (AST) 17 13-40 U/L Alanine Aminotransferase (ALT) < 9 7-40 U/L Alkaline Phosphatase 38 L 46-116 U/L Total Protein 6.1 5.7-8.2 g/dL Albumin 1.9 L 3.2-4.8 g/dL Assessment/Plan Assessment/Plan Assessment: Severe anemia due to iron deficiency and HIV Chronic diarrhea in an HIV patient Leukopenia Probable MAC pneumonia UTI HIV - Probable AIDS Hepatosplenomegaly Substance abuse Nephrolithiasis probably secondary to oxalate stones Splenomegaly Noncompliance Rule out GI bleed Ruled out scabies and lice lice Plan: Indicated 1 unit of PRBCs GI consulted. Evaluate IBS. Evaluate requirement for colonoscopy due to anemia. Ordered stool occult blood Completed CT of abdomen and pelvis: Marked splenomegaly. Extensive retroperitoneal and mesenteric lymphadenopathy, Findings are concerning for lymphoproliferative disorder. Punctate right renal calculus. Mild right hydronephrosis. IR consulted for eventual lymph node biopsy Ordered CD4 count and RNA viral load Infectious Disease was consulted Currently under empiric IV antibiotic (metronidazole, ceftriaxone and Bactrim) Goals of care discussed with patient for over 18 minutes: Full code status Discussed plan with Dr. Wynn, patient and nurses. Plan discussed with: Patient, Other (Nurse's) Date of Service: Apr 26, 2024 Billing Provider: TRACIE WYNN MD Common Visit Codes: [id number] INP/OBS CARE (HIGH) KADEEM CROCKETT RESIDENT Apr 25, 2024 22:37 TRACIE WYNN MD Apr 26, 2024 11:09
[2024-04-25 23:20] LABS: Amphetamine Screen, Urine Neg (NEGATIVE)
[2024-04-25 23:21] LABS: Cannabinoid Screen, Urine Pos (NEGATIVE)
[2024-04-25 23:23] LABS: Barbiturate Scree,Urine Neg (NEGATIVE); Benzodiazephine Screen, Urine Neg (NEGATIVE); Cocaine Screen, Urine Neg (NEGATIVE); Opiate Scree,Urine Neg (NEGATIVE); Phencyclidine Screen, Urine Neg (NEGATIVE)
[2024-04-25] MEDS: PERMETHRIN 5 % TOPICAL CREAM 60GM TOP ONE (23:30)
[2024-04-25] MEDS: SODIUM CHLORIDE 0.9% 1,000 ML IV SCH (23:30)
[2024-04-25 23:40] LABS: % Iron Saturation 13.1 % (15-50)
[2024-04-26] VITALS (10 sets, daily range): BP systolic 48–94; BP diastolic 42–52; PULSE 95–114; RESP 18–84; TEMP 97.2–98.8; O2SAT 96–100
[2024-04-26] MEDS: cefTRIAXone 1GM/50ML D5W 50 ML IV ONE (01:38)
[2024-04-26] MEDS: SODIUM CHLORIDE 0.9% 1,000 ML IV ONE ×5 (01:40→19:06)
[2024-04-26] MEDS: metroNIDAZOLE 500MG/100ML 100 ML IV ONE (02:10)
[2024-04-26] MEDS: ONDANSETRON HCL 4 MG/2 ML VIAL IV PRN (02:13)
[2024-04-26] MEDS: ACETAMINOPHEN 325 MG TAB PO PRN (02:13)
[2024-04-26] MEDS: SULFAMETH-TRIMETH 80/16MG-ML 10 ML in D5W 5% 250 ML IV ONE (04:00)
[2024-04-26 05:01] LABS: Basophils # (auto) 0 10 ^3/uL (0-0.2); Basophils % (auto) 0.3 % (0.0-2.0); Eosinophils # (auto) 0 10 ^3/uL (0-0.8); Eosinophils % (auto) 0.8 % (0.0-7.0); Hematocrit 23.6 % (36.0-46.0); Hemoglobin 7.9 g/dL (12.2-16.2); Lymphocytes # (auto) 0.4 10 ^3/uL (0.4-5.4); Lymphocytes % (auto) 24.5 % (10.0-50.0); Mean Corpuscular Hemoglobin 28.7 pg (28.0-32.0); Mean Corpuscular Hgb Conc. 33.3 g/dL (32.0-36.0); Mean Corpuscular Volume 86.3 fL (80.0-100.0); Monocytes # (auto) 0.1 10 ^3/uL (0-1.3); Monocytes % (auto) 9.9 % (0.0-12.0); Neutrophils # (auto) 0.9 10 ^3/uL (1.6-8.6); Neutrophils % (auto) 64.5 % (37.0-80.0); Nucleated Red Blood Cells % 0.2 %; Platelet Count (auto) 167 10^3/uL (140-450); Red Blood Cells 2.74 10^6/uL (4.0-5.20); Red Cell Distribution Width 17.9 % (11.8-14.3)
[2024-04-26 05:03] LABS: INR 1.36 (0.9-1.15); Partial Thromboplastin Time 42.7 SEC (24.5-34.5)
[2024-04-26 05:05] LABS: White Blood Cell 1.5 10^3/uL (4.4-10.8)
[2024-04-26 05:08] LABS: Anion Gap 12 (5-15); BUN/Creatinine Ratio 18.4 (10.0-20.0); Bilirubin, Total 0.6 mg/dL (0.2-1.0); Potassium 4.3 mmol/L (3.5-5.1)
[2024-04-26 05:09] LABS: Alanine Aminotransferase < 9 U/L (7-40); Albumin 1.7 g/dL (3.2-4.8); Alkaline Phosphatase 34 U/L (46-116); Aspartate Aminotransferase 13 U/L (13-40); Blood Urea Nitrogen 7 mg/dL (9-23); Calcium 6.3 mg/dL (8.7-10.4); Carbon Dioxide 15 mmol/L (20-31); Chloride 107 mmol/L (98-107); Glucose 164 mg/dL (74-106); Sodium 134 mmol/L (136-145); Total Protein 5.3 g/dL (5.7-8.2)
[2024-04-26 05:10] LABS: T3 Total 0.68 ng/mL (0.60-1.81)
[2024-04-26 05:11] LABS: Free T4 (Free Thyroxine) 0.69 ng/dL (0.89-1.76)
[2024-04-26] MEDS ORDERED: CEPHALEXIN 250 MG CAP PO SCH (06:00)
[2024-04-26] MEDS ORDERED: SULFAMETHOX W/TRIMETH(800/160MG) DS TAB PO SCH ×3 (06:00→10:00)
[2024-04-26] MEDS ORDERED: CLINDAMYCIN HCL 150 MG CAP PO SCH (06:00)
[2024-04-26] MEDS ORDERED: CLINDAMYCIN HCL PO SCH (06:00)
[2024-04-26 06:14] LABS: Anisocytosis Slight; Platelet Estimate Adequate
--- NOTE | 2024-04-26 07:10 | DVH ---
EXAM: US Retroperitoneal Limited, Renal CLINICAL INDICATION: Hydronephrosis TECHNIQUE: Real-time limited ultrasound of the retroperitoneum with image documentation. COMPARISON: None FINDINGS: RIGHT KIDNEY: Mild right hydronephrosis without obstructing calculus. Right kidney measures up to 12.7 cm. LEFT KIDNEY: Left kidney measures up to 12.5 cm. No stones. No hydronephrosis. BLADDER: Urinary bladder appears normal. Prevoid volume 200 cc. OTHER FINDINGS: . Hepatomegaly. Splenomegaly. IMPRESSION: Mild right hydronephrosis without obstructing calculus.
[2024-04-26] MEDS: metroNIDAZOLE 500MG/100ML 100 ML IV SCH (07:33)
[2024-04-26] MEDS: cefTRIAXone 1GM/50ML D5W 50 ML IV SCH (09:00)
--- NOTE | 2024-04-26 09:28 | DVH ---
Exam: US RIGHT LOWER EXTREMITY ULTRASOU Date: 04/26/2024 08:46 AM Clinical History: LYMPH NODE BIOPSY Comparison: US RIGHT LOWER EXTREMITY ULTRASOU on DOS: 01/06/24 Technique: Targeted sonographic evaluation of the soft tissues of the right groin was obtained utilizing [place] and color Doppler imaging. Findings/Impression: Multiple enlarged lymph nodes are visualized in the right groin with the largest measuring 3.2 cm in long axis and 1 cm in short axis. Recommend ultrasound-guided biopsy.
[2024-04-26] MEDS: PRENATAL VITAMIN TAB PO SCH (09:44)
[2024-04-26] MEDS: SULFAMETH-TRIMETH 80/16MG-ML 10 ML in D5W 5% 250 ML IV SCH (10:00)
[2024-04-26] MEDS ORDERED: PATIENTS OWN MEDICATION (Prenatal Vit W/ Ferrous Fumara (Prenatal One Daily) 1 TAB) PO SCH (10:00)
[2024-04-26] MEDS: MEROPENEM 1GM IVPB 50 ML IV ONE (10:15)
[2024-04-26] MEDS: AZITHROMYCIN 500MG/ 250ML 250 ML IV ONE (11:15)
[2024-04-26] MEDS: BENZONATATE 100 MG PO SCH (11:24)
--- NOTE | 2024-04-26 13:22 | DVHINCON2 ---
GI Consult Consult Note GI consult note Date of Consultation: 04/26/2024 Chief Complaint: Severe anemia Referring Physician:Dr Deal H&P: 28-year-old female with with history of HIV and MAC, presented to ER with diarrhea and weakness for two weeks Patient was admitted to [facility] with similar symptoms, unsure about her diagnosis from [facility] Patient admits to having small loose stool every 5 minutes. No melena or red blood in stool. Patient unable to get any rest because of the frequent loose stools No nausea or vomiting. No hematemesis Past Medical History: Anemia, HIV, MAC, hyponatremia, and malnutrition, diarrrhea, Past Surgical History: 4 c-sections Social History: NO smoking, drinking ETOH and use of illegal drugs. Family History: Noncontributory Review of Systems: Constitutional: no fever, chill, weight loss Heart: no chest pain, no chest pressure Lung: no cough, no dyspnea with exertion Abdomen: see HPI Physical exam: General: NAD, AAOX3 Chest: lung lobo clear to auscultation Heart: RRR, no murmur Abdomen: No tenderness to palpation, +BS Labs: Labs Test 04/26/24 04:37 04/25/24 23:42 04/25/24 22:52 04/25/24 17:30 Range/Units White Blood Count 1.5 *L 4.4-10.8 10^3/uL Red Blood Count 2.74 L 4.0-5.20 10^6/uL Hemoglobin 7.9 #L 12.2-16.2 g/dL Hematocrit 23.6 #L 36.0-46.0 % Mean Corpuscular Volume 86.3 # 80.0-100.0 fL Mean Corpuscular Hemoglobin 28.7 28.0-32.0 pg Mean Corpuscular Hemoglobin Concent 33.3 32.0-36.0 g/dL Red Cell Distribution Width 17.9 H 11.8-14.3 % Platelet Count 167 140-450 10^3/uL Mean Platelet Volume 7.9 6.9-10.8 fL Neutrophils (%) (Auto) 64.5 37.0-80.0 % Lymphocytes (%) (Auto) 24.5 10.0-50.0 % Monocytes (%) (Auto) 9.9 0.0-12.0 % Eosinophils (%) (Auto) 0.8 0.0-7.0 % Basophils (%) (Auto) 0.3 0.0-2.0 % Neutrophils # (Auto) 0.9 L 1.6-8.6 10 ^3/uL Lymphocytes # (Auto) 0.4 0.4-5.4 10 ^3/uL Monocytes # (Auto) 0.1 0-1.3 10 ^3/uL Eosinophils # (Auto) 0 0-0.8 10 ^3/uL Basophils # (Auto) 0 0-0.2 10 ^3/uL Nucleated Red Blood Cells 0.2 % Platelet Estimate Adequate Anisocytosis (manual) Slight Prothrombin Time 14.0 H 9.3-11.8 sec Prothrombin Time INR 1.36 H 0.9-1.15 Activated Partial Thromboplast Time 42.7 H 24.5-34.5 SEC Sodium Level 134 #L 136-145 mmol/L Potassium Level 4.3 3.5-5.1 mmol/L Chloride Level 107 98-107 mmol/L Carbon Dioxide Level 15 L 20-31 mmol/L Anion Gap 12 5-15 Blood Urea Nitrogen 7 L 9-23 mg/dL Creatinine 0.38 L 0.550-1.02 mg/dL Glomerular Filtration Rate Calc 139 >90 mL/min BUN/Creatinine Ratio 18.4 10.0-20.0 Serum Glucose 164 H 74-106 mg/dL Calcium Level 6.3 L 8.7-10.4 mg/dL Total Bilirubin 0.6 0.2-1.0 mg/dL Aspartate Amino Transferase (AST) 13 13-40 U/L Alanine Aminotransferase (ALT) < 9 7-40 U/L Alkaline Phosphatase 34 L 46-116 U/L Total Protein 5.3 L 5.7-8.2 g/dL Albumin 1.7 L 3.2-4.8 g/dL Free Thyroxine (T4) Calculated 0.69 L 0.89-1.76 ng/dL Total Triiodothyronine (TT3) 0.68 0.60-1.81 ng/mL Urine Color Yellow Yellow Urine Clarity Turbid H Clear Urine pH 6.0 5.0-9.0 Urine Specific [place] 1.023 1.001-1.035 Urine Protein 1+ H Negative Urine Ketones 1+ H Negative Urine Blood 1+ H Negative /uL Urine Nitrite Negative Negative Urine Bilirubin Negative Negative Urine Urobilinogen Normal Negative mg/dL Urine Leukocyte Esterase 1+ Negative /uL Urine RBC 1 0 - 4 /hpf Urine Microscopic WBC 4 0-5 /HPF Urine Squamous Epithelial Cells Few <5 /hpf Urine Calcium Oxalate Crystals Many None Seen Urine Bacteria Few H None Seen /hpf Urine Mucus Few None Seen Urine Glucose Normal Normal mg/dL Urine Test Negative Negative Urine Opiates Screen Neg NEGATIVE Urine Fentanyl Screen Neg NEGATIVE Urine Barbiturates Screen Neg NEGATIVE Urine Phencyclidine Screen Neg NEGATIVE Urine Amphetamines Screen Neg NEGATIVE Urine Benzodiazepines Screen Neg NEGATIVE Urine Cocaine Screen Neg NEGATIVE Urine Cannabinoids Screen Pos NEGATIVE Test 04/25/24 16:21 Range/Units Differential Total Cells Counted 100.0 100 Neutrophils % (Manual) 61 37.0-80.0 Band Neutrophils % (Manual) 0 Lymphocytes % (Manual) 28 10.0-50.0 Monocytes % (Manual) 11 0-12 Eosinophils % (Manual) 0 0-7 Basophils % (Manual) 0 0.0-2.0 Metamyelocytes % (manual) 0 Myelocytes % (Manual) 0 Promyelocytes % (Manual) 0 Blast Cells % (Manual) 0 Reactive Lymphocytes 0 Iron Level 23 L 50-170 ug/dL Total Iron Binding Capacity 175 L 250-425 ug/dL Percent Iron Saturation 13.1 L 15-50 % Ferritin 287.5 10-291 ng/mL Lactate Dehydrogenase 153 120-246 U/L Thyroid Stimulating Hormone (TSH) 20.72 H 0.55-4.78 uIU/mL Imaging: CT abdomen pelvis IMPRESSION: 1. Limited exam without intravenous contrast. Small pericardial effusion. 2. Marked splenomegaly. Extensive retroperitoneal and mesenteric lymphadenopathy appears worse compared to prior. Findings are concerning for lymphoproliferative disorder. Ultrasound-guided biopsy of the inguinal lymph node could be performed for tissue diagnosis. 3. Diffuse small bowel wall thickening is nonspecific. Could be due to an infectious or inflammatory process. Infiltrative disease could have a similar appearance. Edema would also be in the differential. Clinical correlation and continued follow-up is recommended. This could be further evaluated with small- bowel follow-through. 4. Punctate right renal calculus. Mild right hydronephrosis. No definite obstructing calculus identified. This could be further evaluated with CT urogram. Assessment: Severe anemia Diarrhea HIV Substance abuse Hepatosplenomegaly Plan: Discussed with Dr. Minh Stool for occult blood pending Monitor labs, transfuse if hemoglobin less than seven Stool WBCs, O&P, culture, C diff Call lab to add stool for cryptosporidiosis, which requires prior authorization by Dr. Wynn Continue IV antibiotics Clear liquid diet We will continue to monitor the patient Discussed plan with patient and RN Thank you for this consult Date of Service: Apr 26, 2024 Billing Provider: SERG ANNE Common Visit Codes: CONSULT ONLY Consultation Codes: [id number] CONSULT <60MIN SERG ANNE Apr 26, 2024 13:22
[2024-04-26] MEDS: MEROPENEM 1GM IVPB 50 ML IV SCH (14:00)
[2024-04-26] MEDS: clonazePAM 0.5 MG TAB PO PRN (18:04)
--- NOTE | 2024-04-26 18:15 | DVHPNRES ---
Progress Note Date Seen: Apr 26, 2024 Resident Creating Document: ROHAN SOLOMON RESIDENT Has the PT tested + for MRSA If YES, has PT been informed?: No Medical Necessity Reason Pt with a Central, PICC or Fol: No Subjective Review of Systems Patient is a 28 year old female with a history of HIV and MAC presenting to the ED with a 2 weeks history of diarrhea and weakness. Patient was recently admitted at [place] for similar persistent diarrhea. Patient said she is very compliant with her anti-retroviral medications and follows up with an ID physican ( (Dr. Fulton) for many year. Patient admits to having small loose stool every 5 minutes. No melena or red blood in stool. Patient unable to get any rest because of the frequent loose stools. Patient's CT scan showed hepatomegaly and splenomegaly, GI consult and Infectious Disease consult were ordered. meropenem and cefepime were started because of clear enteritis showed in the CT scan of the abdomen, azithromycin due to possible Cryptosporidium department infection. CD4 count an HIV viral copies still pending. transfuse if hemoglobin less than seven Stool WBCs, O&P, culture, C diff Resume anti-retroviral therapy, monitor fluid status, aggressive fluid resuscitation as needed, high-risk of dehydration. Monitor BMP\ ROS: Constitutional: YES: Weakness, malaise, frail appearance Respiratory: Cough present, shortness of breaths, improving No Wheezing, Hemoptysis, Pleuritic Pain, Sputum, Wheezing, Other Cardiovascular: Palpitations, lightheadedness, no chest pain, no peripheral edema Gastrointestinal: Yes: Watery diarrhea, no presence of blood more than 15 bouts a day. Musculoskeletal: No: other, neck pain, shoulder pain, arm pain, back pain, hand pain, leg pain, foot pain Neurological:; No: Weakness, Numbness, Incoordination, Change in speech, Confusion, Seizures Patient reports: No new complaints Changes from previous H/P or p: No Changes Objective vital signs Vital Sign Date Time Temp Pulse Resp B/P (MAP) Pulse Ox O2 Delivery O2 Flow Rate FiO2 04/26/24 16:25 107 18 100 Room Air* 0 21 04/26/24 16:25 97.2 91/43 (59) 97.2 Total Intake and Output 04/25/24 04/25/24 04/26/24 15:00 23:00 07:00 Intake Total 600 ml Balance 600 ml medications Current Medications Medications Dose Ordered Sig/Era Route Start Time Stop Time Status Last Admin Dose Admin Acetaminophen 650 mg Q6HP PRN PO 04/25/24 22:15 04/26/24 02:13 650 MG Ondansetron HCl 4 mg Q4HP PRN IV 04/25/24 22:15 04/26/24 02:13 4 MG Morphine Sulfate 2 mg Q4HPRN PRN IV 04/25/24 22:15 Trimethoprim/ Sulfamethoxazole 2 tab Q8HR PO 04/26/24 06:00 UNV Patient Own Medication 1 cap QID PO 04/26/24 06:00 UNV Patient Own Medication 1 cap TID PO 04/26/24 06:00 UNV Patient Own Medication 1 tab DAILY PO 04/26/24 10:00 Patient Own Medication 1 tab DAILY PO 04/26/24 10:00 UNV Patient Own Medication 100 mg Q4HR PO 04/26/24 02:00 Hold Metronidazole 100 ml @ 100 mls/hr Q8HR IV 04/26/24 06:00 04/26/24 07:33 100 MLS/HR Sodium Chloride 1,000 ml @ 100 mls/hr Q10H IV 04/25/24 23:30 04/26/24 09:30 100 MLS/HR Prenat Multivit/ Imperial/Iron/Folic Ac 1 DAILY PO 04/26/24 10:00 04/26/24 09:44 1 Trimethoprim/ Sulfamethoxazole 10 ml/Dextrose 260 ml @ 173.333 mls/hr DAILY IV 04/26/24 10:00 04/26/24 10:00 173.333 MLS/HR Meropenem 50 ml @ 17 mls/hr Q8HR IV 04/26/24 14:00 Azithromycin 250 ml @ 125 mls/hr DAILY IV 04/27/24 10:00 Loperamide HCl 2 mg PRN PRN PO 04/26/24 13:15 Clonazepam 0.25 mg Q12HP PRN PO 04/26/24 15:45 Examination General Appearance: Alert, Oriented X3, Cooperative, No acute distress. HEENT: Atraumatic, PERRLA, EOMI, Mucous membrane dry/pale Respiratory: Clear to auscultation, Normal air movement Cardiovascular: Regular rate, Normal S1, Normal S2, No murmurs, no chest wall tenderness Abdominal: NO distention, no tenderness, bowel sounds present, no scars noted, hepatosplenomegaly palpated Extremities: No clubbing, No cyanosis, No edema, Normal pulses, No tenderness/swelling Skin: No rashes, No breakdown, No significant lesion Neuro: Normal gait, Normal speech, Strength at 5/5 X4 ext, Normal tone, Sensation intact, Cranial nerves 3-12 NL, Reflexes 2+ Psych/Mental Status: Mental status NL, Mood NL laboratory and microbiology Laboratory Tests 04/26/24 04:37 Test 04/26/24 04:37 Range/Units Serum Glucose 164 H 74-106 mg/dL Microbiology Date/Time Source Procedure Growth Status 04/26/24 11:45 Stool Stool Culture - Preliminary Resulted 04/26/24 11:45 Stool Shiga Toxin I & II - Final Resulted Labs and/or images reviewed: Labs reviewed by me, Image(s) reviewed by me Problem List/Assessment/Plan Problem List/Assessment/Plan #Dehydration likely due to uncontrolled diarrhea likely due to 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 #Likely Sepsis due to enteritis seen on CT scan #HIV #Likely medication noncompliance -patient admitted to [facility] -infectious disease consult -broad-spectrum antibiotics -azithromycin IV -Zosyn, prophylaxis for PJP -GI consult -normal saline, aggressive resuscitation as needed, risk of hypovolemia due to volume depletion -monitor BNP -monitor fluid status #Severe anemia status post transfusion #severe leukopenia #Non-anion gap metabolic acidosis likely due to diarrhea/hypoalbuminemia -as above -treat underlying condition #Hypokalemia #Malnutrition -monitor #Primary hypothyroidism TSH 20, low free T4 low/normal t3 -consider levothyroxine #Hepatosplenomegaly #Enteritis -as above #Polysubstance abuse Marijuana use case discussed with dr bansal Goals of care discussed with the patient for 31 minutes Code status: Full code critical care time 39 minutes Plan discussed with: Patient My Orders My Orders Orders - ROHAN OSLOMON RESIDENT Procedure Category Date Status Time Meropenem 1gm Ivpb PHA 04/26/24 In Process (Merrem 1gm/ Ns) 14:00 Azithromycin 500mg/ PHA 04/27/24 In Process 250ml (Zithromax 50 10:00 Sodium Chloride 0.9% PHA 3/20/25 In Process 17:30 CC Plasma Assessment Blood Product Administration S: [id number] Date of Service: Apr 26, 2024 Billing Provider: SHARON BANSAL MD Common Visit Codes: [id number] CARE 30-74 MIN ROHAN SOLOMON RESIDENT Apr 26, 2024 18:15 SHARON BANSAL MD Apr 27, 2024 12:10
[2024-04-26] MEDS: LOPERAMIDE HCL 2 MG CAP/TAB PO PRN (21:29)
[2024-04-27] VITALS (10 sets, daily range): BP systolic 82–102; BP diastolic 35–69; PULSE 62–117; RESP 18–19; TEMP 97.7–98.6; O2SAT 89–100
[2024-04-27] MEDS: MELATONIN 5 MG TAB PO ONE ×2 (02:42→22:56)
[2024-04-27 07:28] LABS: Basophils # (auto) 0 10 ^3/uL (0-0.2); Eosinophils # (auto) 0 10 ^3/uL (0-0.8); Lymphocytes # (auto) 0.3 10 ^3/uL (0.4-5.4); Monocytes # (auto) 0.1 10 ^3/uL (0-1.3); Nucleated Red Blood Cells % 0.4 %
[2024-04-27 07:30] LABS: Basophils % (auto) 0.5 % (0.0-2.0); Eosinophils % (auto) 0.5 % (0.0-7.0); Hematocrit 20.6 % (36.0-46.0); Lymphocytes % (auto) 20.1 % (10.0-50.0); Mean Corpuscular Hemoglobin 29.1 pg (28.0-32.0); Mean Corpuscular Hgb Conc. 32.3 g/dL (32.0-36.0); Mean Corpuscular Volume 90.2 fL (80.0-100.0); Neutrophils % (auto) 68.9 % (37.0-80.0); Platelet Count (auto) 163 10^3/uL (140-450); Red Blood Cells 2.28 10^6/uL (4.0-5.20); Red Cell Distribution Width 19.5 % (11.8-14.3)
[2024-04-27 07:40] LABS: Anion Gap 14 (5-15); Chloride 106 mmol/L (98-107)
[2024-04-27 07:46] LABS: BUN/Creatinine Ratio 13.5 (10.0-20.0); Calcium 7.3 mg/dL (8.7-10.4); Carbon Dioxide 11 mmol/L (20-31); Glucose 91 mg/dL (74-106); Potassium 2.8 mmol/L (3.5-5.1); Sodium 131 mmol/L (136-145)
[2024-04-27 07:47] LABS: Blood Urea Nitrogen 5 mg/dL (9-23)
[2024-04-27 07:48] LABS: Hemoglobin 6.6 g/dL (12.2-16.2); White Blood Cell 1.4 10^3/uL (4.4-10.8)
[2024-04-27 08:07] LABS: Haptoglobin 199 mg/dL (33-278)
[2024-04-27] MEDS: SODIUM CHLORIDE 0.9% 500 ML IV ONE (10:15)
[2024-04-27] MEDS: AZITHROMYCIN 500MG/ 250ML 250 ML IV SCH (10:16)
--- NOTE | 2024-04-27 10:51 | DVH ---
US US GUIDANCE FOR NEEDLE PLACEME, HISTORY: LYMPHNODE BIOPSY PROCEDURE: Informed consent was obtained. The patient was placed supine on the gurney, and limited US was performed of the right groin. The skin over the area of interest was prepped with chlorhexidine which was allowed to dry and draped in the usual sterile fashion. Time out was performed. 1% local l idocaine was administered. With intermittent US guidance, Temno 17 gauge outer coaxial guiding needle was advanced into the right inguinal lymph n ode. Multiple biopsies were obtained using Temno 18 gau ge inner core biopsy needle. The specimens were placed in formalin and RPMI and sent to pathology for analysis. The needle was withdrawn . Post procedural images were obtained. No immediate complication was identified. FINDINGS: Prominent right inguinal lymph node. Intra-procedural images demonstrate biopsy needle with in the margin of targeted lesion. Post procedural images do not demonstrate any significant hemorrhag e. IMPRESSION: US guided right inguinal lymph node biopsy. Pathology results pending.
[2024-04-27 12:07] LABS: CMV IgG Antibody >10.00 U/mL (0.00-0.59); CMV IgM Antibody <30.0 AU/mL (0.0-29.9)
--- NOTE | 2024-04-27 13:26 | DVHPN2 ---
Progress Note Date Seen: Apr 27, 2024 Resident Creating Document: NOHEMY HIDALGO RESIDENT Has the PT tested + for MRSA If YES, has PT been informed?: No Medical Necessity Reason Pt with a Central, PICC or Fol: No Subjective Review of Systems Patient is a 28-year-old female with past medical history of HIV and MAC who presented to the ER with diarrhea and generalized weakness ongoing for the past 2 weeks. Patient was recently admitted to [facility] with similar symptoms, unsure about her diagnosis and hospitalization course at [facility]. Patient admits to having small loose bowel movement every 5 minutes without any melena or blood in stool. Patient seen and examined at bedside, denies any nausea or vomiting. Reports okay appetite. Continues to have diarrhea, more than 10 bowel movements per day. Objective vital signs Vital Sign Date Time Temp Pulse Resp B/P (MAP) Pulse Ox O2 Delivery O2 Flow Rate FiO2 04/27/24 05:00 98.6 62 19 82/35 (51) 99 98.6 04/26/24 20:00 Room Air* 0 21 Total Intake and Output 04/26/24 04/26/24 04/27/24 15:00 23:00 07:00 Intake Total 300 ml 550 ml Output Total 950 ml Balance -950 ml 300 ml 550 ml medications Current Medications Medications Dose Ordered Sig/Era Route Start Time Stop Time Status Last Admin Dose Admin Acetaminophen 650 mg Q6HP PRN PO 04/25/24 22:15 04/26/24 02:13 650 MG Ondansetron HCl 4 mg Q4HP PRN IV 04/25/24 22:15 04/26/24 02:13 4 MG Morphine Sulfate 2 mg Q4HPRN PRN IV 04/25/24 22:15 Trimethoprim/ Sulfamethoxazole 2 tab Q8HR PO 04/26/24 06:00 UNV Patient Own Medication 1 cap QID PO 04/26/24 06:00 UNV Patient Own Medication 1 cap TID PO 04/26/24 06:00 UNV Patient Own Medication 1 tab DAILY PO 04/26/24 10:00 Patient Own Medication 1 tab DAILY PO 04/26/24 10:00 UNV Patient Own Medication 100 mg Q4HR PO 04/26/24 02:00 Hold Metronidazole 100 ml @ 100 mls/hr Q8HR IV 04/26/24 06:00 04/27/24 13:12 100 MLS/HR Sodium Chloride 1,000 ml @ 100 mls/hr Q10H IV 04/25/24 23:30 04/26/24 21:09 100 MLS/HR Prenat Multivit/ [employer]/Iron/Folic Ac 1 DAILY PO 04/26/24 10:00 04/27/24 10:16 1 Trimethoprim/ Sulfamethoxazole 10 ml/Dextrose 260 ml @ 173.333 mls/hr DAILY IV 04/26/24 10:00 04/26/24 10:00 173.333 MLS/HR Meropenem 50 ml @ 17 mls/hr Q8HR IV 04/26/24 14:00 04/27/24 04:51 17 MLS/HR Azithromycin 250 ml @ 125 mls/hr DAILY IV 04/27/24 10:00 04/27/24 10:16 125 MLS/HR Clonazepam 0.25 mg Q12HP PRN PO 04/26/24 15:45 04/27/24 13:12 0.25 MG Examination General Appearance: Alert, Oriented X3, Cooperative, No acute distress. HEENT: Atraumatic, PERRLA, EOMI, Mucous membrane dry/pale Respiratory: Clear to auscultation, Normal air movement Cardiovascular: Regular rate, Normal S1, Normal S2, No murmurs, no chest wall tenderness Abdominal: NO distention, no tenderness, bowel sounds present, no scars noted, hepatosplenomegaly palpated Extremities: No clubbing, No cyanosis, No edema, Normal pulses, No tenderness/swelling Skin: No rashes, No breakdown, No significant lesion Neuro: Normal gait, Normal speech, Strength at 5/5 X4 ext, Normal tone, Sensation intact, Cranial nerves 3-12 NL, Reflexes 2+ Psych/Mental Status: Mental status NL, Mood NL laboratory and microbiology Laboratory Tests 04/27/24 07:16 Test 04/27/24 07:16 Range/Units Serum Glucose 91 74-106 mg/dL Microbiology Date/Time Source Procedure Growth Status 04/26/24 11:45 Stool Stool Culture - Preliminary Resulted 04/26/24 11:45 Stool Shiga Toxin I & II - Final Resulted 04/25/24 17:30 Voided Urine Urine Culture - Preliminary Resulted Labs and/or images reviewed: Labs reviewed by me, Image(s) reviewed by me Problem List/Assessment/Plan Problem List/Assessment/Plan Diarrhea Dehydration due to above Sepsis Anemia s/p transfusion HIV Marijuana use Hepatosplenomegaly Hypokalemia Plan: Positive stool occult blood, negative stool WBCs Monitor labs, transfuse if HGB less than 7 Stool C diff negative Campylobacter, E coli and Shiga toxin negative stool for cryptosporidiosis Add Questran Added diphenoxylate Continue IV antibiotics Clear liquid diet Thank you so much for the opportunity to consult on your patient. GI team will follow the patient. In case of any questions or concerns please feel free to reach out. Plan discussed with Dr. Wilkinson Plan discussed with: Patient, Other (RN) CC Plasma Assessment Blood Product Administration S: [id number] NOHEMY HIDALGO RESIDENT Apr 27, 2024 13:26
[2024-04-27 14:05] LABS: Lactic Acid w/Reflex 2.5 mmol/L (0.4-2.0)
[2024-04-27] MEDS: POTASSIUM CHLORIDE 60 MEQ, LIDOCAINE 1% (LOCAL ANESTH.) 6 ML in SODIUM CHL 0.9% 500 ML IV ONE (15:10)
--- NOTE | 2024-04-27 15:58 | DVHPNRES ---
Progress Note Date Seen: Apr 27, 2024 Resident Creating Document: MADELINE BRUNERIZAIAH RESIDENT Has the PT tested + for MRSA If YES, has PT been informed?: No Medical Necessity Reason Pt with a Central, PICC or Fol: No Subjective Review of Systems Patient seen and examined with the bedside Reported multiple episodes of watery stools Has weakness, malaise Mild shortness of breath but does not require oxygen WBC count came down in the morning to 1.4 and hemoglobin at 6.6, low potassium in the morning Objective vital signs Vital Sign Date Time Temp Pulse Resp B/P (MAP) Pulse Ox O2 Delivery O2 Flow Rate FiO2 04/27/24 13:00 98.2 116 18 90/69 (76) 100 98.2 04/26/24 20:00 Room Air* 0 21 Total Intake and Output 04/26/24 04/26/24 04/27/24 15:00 23:00 07:00 Intake Total 300 ml 550 ml Output Total 950 ml Balance -950 ml 300 ml 550 ml medications Current Medications Medications Dose Ordered Sig/Era Route Start Time Stop Time Status Last Admin Dose Admin Acetaminophen 650 mg Q6HP PRN PO 04/25/24 22:15 04/26/24 02:13 650 MG Ondansetron HCl 4 mg Q4HP PRN IV 04/25/24 22:15 04/26/24 02:13 4 MG Morphine Sulfate 2 mg Q4HPRN PRN IV 04/25/24 22:15 Trimethoprim/ Sulfamethoxazole 2 tab Q8HR PO 04/26/24 06:00 UNV Patient Own Medication 1 cap QID PO 04/26/24 06:00 UNV Patient Own Medication 1 cap TID PO 04/26/24 06:00 UNV Patient Own Medication 1 tab DAILY PO 04/26/24 10:00 Patient Own Medication 1 tab DAILY PO 04/26/24 10:00 UNV Patient Own Medication 100 mg Q4HR PO 04/26/24 02:00 Hold Metronidazole 100 ml @ 100 mls/hr Q8HR IV 04/26/24 06:00 04/27/24 13:12 100 MLS/HR Prenat Multivit/ [facility]/Iron/Folic Ac 1 DAILY PO 04/26/24 10:00 04/27/24 10:16 1 Trimethoprim/ Sulfamethoxazole 10 ml/Dextrose 260 ml @ 173.333 mls/hr DAILY IV 04/26/24 10:00 04/26/24 10:00 173.333 MLS/HR Meropenem 50 ml @ 17 mls/hr Q8HR IV 04/26/24 14:00 04/27/24 04:51 17 MLS/HR Azithromycin 250 ml @ 125 mls/hr DAILY IV 04/27/24 10:00 04/27/24 10:16 125 MLS/HR Clonazepam 0.25 mg Q12HP PRN PO 04/26/24 15:45 04/27/24 13:12 0.25 MG Cholestyramine Resin 4 gm Q12HR@11,23 PO 04/27/24 23:00 UNV Diphenoxylate HCl/ Atropine 2.5 mg Q12HP PRN PO 04/27/24 15:15 UNV Examination Constitutional: Patient was alert and oriented to time, place and person and appears to be in [id number] distress because of shortness of Breath and multiple episodes of watery stools Gen - no pallor, no icterus, no cyanosis, no clubbing, no LAD, no edema . Skin - Patients skin is warm and dry.. HEENT - normocephalic, atraumatic, dry mucous membranes. Neck - full ROM, no LAD, no JVD Pulmonary - B/L vesicular breath sounds. no crackles , no wheezing, no stridor. cardiovascular - normal S1,S2 heard. no murmurs heard. peripheral pulses normal radial 2+, pedal 2+. GI - soft abdomen without tenderness to palpation. no hepatospleenomegaly. Bowel sounds normoactive Neurological - Bilateral upper extremity strength 5/5, bilateral lower extremity strength 5/5, no facial droop, normal speech, no tremor, no sensory deficiets. laboratory and microbiology Laboratory Tests 04/27/24 07:16 Test 04/27/24 07:16 Range/Units Serum Glucose 91 74-106 mg/dL Microbiology Date/Time Source Procedure Growth Status 04/26/24 11:45 Stool Stool Culture - Preliminary Resulted 04/26/24 11:45 Stool Shiga Toxin I & II - Final Resulted 04/25/24 17:30 Voided Urine Urine Culture - Preliminary Resulted Problem List/Assessment/Plan Problem List/Assessment/Plan #Dehydration likely due to uncontrolled diarrhea likely due to 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 #Likely Sepsis due to enteritis seen on CT scan #HIV #Likely medication noncompliance -upgraded to tele - stool C diff negative, Campylobacter and shiga toxin negative - stool for Cryptosporidium to be sent -infectious disease consult -broad-spectrum antibiotics -azithromycin IV -Zosyn, prophylaxis for PJP -GI consult - recommended to add Questran, diphenoxylate -IV fluid resuscitation -monitor fluid status #Severe anemia status post transfusion #severe leukopenia #Non-anion gap metabolic acidosis likely due to diarrhea/hypoalbuminemia -as above -treat underlying condition #Hypokalemia #Malnutrition - replenished -monitor #Primary hypothyroidism TSH 20, low free T4 low/normal t3 - we will consider levothyroxine - #Hepatosplenomegaly #Enteritis -as above #Polysubstance abuse Marijuana use case discussed with Dr bansal Goals of care discussed with the patient for 21 minutes Code status: Full code Plan discussed with: Patient My Orders My Orders Orders - GREGG BRUNER Procedure Category Date Status Time Clear Liq Diet DIET 04/27/24 Transmitted Breakfast Transfer Orders XFER 04/27/24 Transmitted 08:18 CC Plasma Assessment Blood Product Administration S: [id number] Date of Service: Apr 27, 2024 Billing Provider: SHARON BANSAL MD Common Visit Codes: [id number] INP/OBS CARE(HIGH) GREGG BRUNER RESIDENT Apr 27, 2024 15:58 SHARON BANSAL MD Apr 28, 2024 20:12
[2024-04-27] MEDS: LACTATED RINGER'S 500 ML IV ONE (16:30)
[2024-04-27] MEDS: LACTATED RINGER'S 1,000 ML IV SCH (19:00)
[2024-04-27] MEDS: CHOLESTYRAMINE 4 GM POWDER PO SCH (21:05)
[2024-04-27] MEDS: KETOROLAC TROMETH 30 MG/ML 1ML VIAL IV ONE (22:58)
[2024-04-28] VITALS (7 sets, daily range): BP systolic 91–105; BP diastolic 45–52; PULSE 103–128; RESP 17–21; TEMP 97.4–98.1; O2SAT 98–100
[2024-04-28] MEDS ORDERED: KETOROLAC TROMETH 30 MG/ML 1ML VIAL IV PRN (06:00)
--- NOTE | 2024-04-28 09:09 | DVH ---
EXAM: XR Chest, 1 View CLINICAL INDICATION: SHORTNESS OF BREATH TECHNIQUE: Frontal view of the chest. COMPARISON: XY CHEST PORTABLE on DOS: 01/03/24 FINDINGS: LUNGS AND PLEURAL SPACES: Unremarkable. No consolidation. No pneumothorax. HEART: Unremarkable. No cardiomegaly. MEDIASTINUM: Unremarkable. Normal mediastinal contour. BONES/JOINTS: Unremarkable. No acute fracture. OTHER FINDINGS: . None. IMPRESSION: No acute cardiopulmonary process.
[2024-04-28] MEDS: ALBUMIN 25% 100 ML IV SCH (11:26)
[2024-04-28 11:32] LABS: Hematocrit 25.7 % (36.0-46.0); Hemoglobin 7.8 g/dL (12.2-16.2); Red Blood Cells 2.67 10^6/uL (4.0-5.20); Red Cell Distribution Width 19.3 % (11.8-14.3)
[2024-04-28 11:35] LABS: Mean Corpuscular Hgb Conc. 30.2 g/dL (32.0-36.0); Mean Corpuscular Volume 96.3 fL (80.0-100.0); Platelet Count (auto) 130 10^3/uL (140-450)
[2024-04-28 11:42] LABS: Basophils % (manual) 0 (0.0-2.0); Blast Cells 0; Eosinophils % (manual) 0 (0-7); Metamyelocytes % 0; Myelocytes % 0; Promyelocytes % 0; Reactive Lymphocytes 0; White Blood Cell 1.5 10^3/uL (4.4-10.8)
[2024-04-28 11:53] LABS: Anion Gap 14.00001 (5-15); Aspartate Aminotransferase 14 U/L (13-40); BUN/Creatinine Ratio 14.7 (10.0-20.0); Glucose 77 mg/dL (74-106); Potassium 3.6 mmol/L (3.5-5.1)
[2024-04-28 11:54] LABS: Alanine Aminotransferase < 9 U/L (7-40); Albumin 1.6 g/dL (3.2-4.8); Alkaline Phosphatase 31 U/L (46-116); Bilirubin, Total 0.4 mg/dL (0.2-1.0); Blood Urea Nitrogen 5 mg/dL (9-23); Calcium 6.9 mg/dL (8.7-10.4); Carbon Dioxide < 10 mmol/L (20-31); Chloride 107 mmol/L (98-107); Magnesium 1.6 mg/dL (1.6-2.6); Sodium 131 mmol/L (136-145); Total Protein 5.1 g/dL (5.7-8.2)
[2024-04-28 12:03] LABS: Band Neutrophils % (manual) 1; Large Platelets FEW; Lymphocytes % (manual) 21 (10.0-50.0); Monocytes % (manual) 9 (0-12); Platelet Estimate Adequate
[2024-04-28 12:04] LABS: Anisocytosis Slight
[2024-04-28] MEDS: LEVOTHYROXINE SODIUM 50 MCG TAB PO ONE (12:52)
[2024-04-28] MEDS: FUROSEMIDE 20 MG/2 ML VIAL IV ONE (12:58)
[2024-04-28 14:40] LABS: Lactic Acid w/Reflex 2.4 mmol/L (0.4-2.0)
--- NOTE | 2024-04-28 15:13 | DVHINCON2 ---
Date of service: Apr 28, 2024 Family History: Patient reports no known family medical history. Allergies: Coded Allergies: NO KNOWN ALLERGIES (Unverified , 10/22/20) Home Meds Active Scripts Sulfamethoxazole W/Trimethopri (Bactrim Ds Tablet) 1 Tab Tb, 2 TAB PO Q8HR for 21 Days, #126 TAB Prov:MAXIM NIELSEN [facility] 07/08/23 Benzonatate (Benzonatate) 100 Mg Cap, 1-2 CAP PO Q4HR, #60 CAP Prov:MAXIM NIELSEN [facility] 07/08/23 Permethrin (Elimite) 5 % Cre, 1 APPLIC TOP ONCE, #60 GRAMS 1 Refill Prov:TONY NAVARRO 05/13/22 Cephalexin ( Keflex 500) 500 Mg Cap, 1 CAP PO QID, #40 CAP Prov:TONY NAVARRO 05/13/22 Sulfamethoxazole W/Trimethopri (Bactrim Ds Tablet) 1 Tab Tb, 1 TAB PO BID for 10 Days, #20 TAB Prov:TONY NAVARRO 05/13/22 Ibuprofen (Ibuprofen) 800 Mg Tab, 1 TAB PO TID, #30 TAB Prov:TONY NAVARRO 05/13/22 Clindamycin Hcl (Clindamycin Hcl) 300 Mg Cap, 1 CAP PO TID for 10 Days, #21 CAP 0 Refills Prov:AMAYA SÁNCHEZ 11/19/21 Reported Medications Vit W/ Ferrous Fumara ( One Daily) Daily Tab, 1 TAB PO DAILY, #90 TAB 3 Refills 10/22/20 Emtricitabine-Tenofovir Disopr (Truvada) Tab, 1 TAB PO DAILY, #30 TAB 2 Refills 10/22/20 Current Medications Current Medications Medications (Trade) Dose Ordered Sig/Era Route PRN Reason Start Time Stop Time Status Last Admin Cholestyramine Resin (Questran Powder) 4 gm Q12HR@11,23 PO 04/27/24 23:00 04/28/24 11:23 Diphenoxylate HCl/ Atropine (Lomotil Tablet) 2.5 mg Q12HP PRN PO FOR DIARRHEA 04/27/24 15:15 Lactated Ringer's 1,000 ml @ 120 mls/hr Q8H20M IV 04/27/24 19:00 04/28/24 11:40 Melatonin (Melatonin) 5 mg HS PO 04/28/24 22:00 Ketorolac Tromethamine (Toradol Injection) 15 mg Q6HPRN PRN IV MILD PAIN (1-3 PAIN SCALE) 04/28/24 06:00 04/28/24 07:42 DC Levothyroxine Sodium (Synthroid Tablet) 125 mcg QAM@0600 PO 04/29/24 06:00 Patient Own Medication 1 DAILY PO 04/29/24 10:00 Albumin Human 100 ml @ 100 mls/hr Q8H IV 04/28/24 10:30 04/29/24 03:29 04/28/24 11:26 Vital Signs Vital Signs Date Time Temp Pulse Resp B/P (MAP) Pulse Ox O2 Delivery O2 Flow Rate FiO2 04/28/24 13:00 97.4 103 19 93/49 (64) 100 97.4 04/28/24 08:00 Nasal Cannula* 2 28 Labs/Diagnostic Data Labs Test 04/28/24 14:02 04/28/24 10:30 04/27/24 21:00 04/27/24 07:16 Range/Units Lactic Acid Level 2.4 *H 0.4-2.0 mmol/L White Blood Count 1.5 *L 4.4-10.8 10^3/uL Red Blood Count 2.67 L 4.0-5.20 10^6/uL Hemoglobin 7.8 #L 12.2-16.2 g/dL Hematocrit 25.7 #L 36.0-46.0 % Mean Corpuscular Volume 96.3 # 80.0-100.0 fL Mean Corpuscular Hemoglobin 29.0 28.0-32.0 pg Mean Corpuscular Hemoglobin Concent 30.2 L 32.0-36.0 g/dL Red Cell Distribution Width 19.3 H 11.8-14.3 % Platelet Count 130 L 140-450 10^3/uL Mean Platelet Volume 9.0 6.9-10.8 fL Neutrophils (%) (Auto) 37.0-80.0 % Lymphocytes (%) (Auto) 10.0-50.0 % Monocytes (%) (Auto) 0.0-12.0 % Basophils (%) (Auto) 0.0-2.0 % Neutrophils # (Auto) 1.6-8.6 10 ^3/uL Lymphocytes # (Auto) 0.4-5.4 10 ^3/uL Monocytes # (Auto) 0-1.3 10 ^3/uL Differential Total Cells Counted 100.0 100 Neutrophils % (Manual) 69 37.0-80.0 Band Neutrophils % (Manual) 1 Lymphocytes % (Manual) 21 10.0-50.0 Monocytes % (Manual) 9 0-12 Eosinophils % (Manual) 0 0-7 Basophils % (Manual) 0 0.0-2.0 Metamyelocytes % (manual) 0 Myelocytes % (Manual) 0 Promyelocytes % (Manual) 0 Blast Cells % (Manual) 0 Reactive Lymphocytes 0 Platelet Estimate Adequate Clumped Platelets Moderate Large Platelets Few Anisocytosis (manual) Slight Schistocytes Few Sodium Level 131 L 136-145 mmol/L Potassium Level 3.6 3.5-5.1 mmol/L Chloride Level 107 98-107 mmol/L Carbon Dioxide Level < 10 *L 20-31 mmol/L Anion Gap 14.28737 5-15 Blood Urea Nitrogen 5 L 9-23 mg/dL Creatinine 0.34 L 0.550-1.02 mg/dL Glomerular Filtration Rate Calc 143 >90 mL/min BUN/Creatinine Ratio 14.7 10.0-20.0 Serum Glucose 77 74-106 mg/dL Calcium Level 6.9 L 8.7-10.4 mg/dL Magnesium Level 1.6 1.6-2.6 mg/dL Total Bilirubin 0.4 0.2-1.0 mg/dL Aspartate Amino Transferase (AST) 14 13-40 U/L Alanine Aminotransferase (ALT) < 9 7-40 U/L Alkaline Phosphatase 31 L 46-116 U/L Total Protein 5.1 L 5.7-8.2 g/dL Albumin 1.6 L 3.2-4.8 g/dL Miscellaneous Referred Test (Refrg) Sent to [facility] Eosinophils (%) (Auto) 0.5 0.0-7.0 % Eosinophils # (Auto) 0 0-0.8 10 ^3/uL Basophils # (Auto) 0 0-0.2 10 ^3/uL Nucleated Red Blood Cells 0.4 % Test 04/26/24 11:45 04/26/24 04:37 04/25/24 23:42 04/25/24 22:52 Range/Units Stool Occult Blood Positive Negative Stool Occult Blood Sample #3 Negative Stool for White Cells None seen Prothrombin Time 14.0 H 9.3-11.8 sec Prothrombin Time INR 1.36 H 0.9-1.15 Activated Partial Thromboplast Time 42.7 H 24.5-34.5 SEC Free Thyroxine (T4) Calculated 0.69 L 0.89-1.76 ng/dL Total Triiodothyronine (TT3) 0.68 0.60-1.81 ng/mL Haptoglobin 199 33-278 mg/dL Cytomegalovirus IgG Antibody >10.00 H 0.00-0.59 U/mL Cytomegalovirus IgM Antibody <30.0 0.0-29.9 AU/mL Test 04/25/24 17:30 04/25/24 16:21 Range/Units Urine Color Yellow Yellow Urine Clarity Turbid H Clear Urine pH 6.0 5.0-9.0 Urine Specific [place] 1.023 1.001-1.035 Urine Protein 1+ H Negative Urine Ketones 1+ H Negative Urine Blood 1+ H Negative /uL Urine Nitrite Negative Negative Urine Bilirubin Negative Negative Urine Urobilinogen Normal Negative mg/dL Urine Leukocyte Esterase 1+ Negative /uL Urine RBC 1 0 - 4 /hpf Urine Microscopic WBC 4 0-5 /HPF Urine Squamous Epithelial Cells Few <5 /hpf Urine Calcium Oxalate Crystals Many None Seen Urine Bacteria Few H None Seen /hpf Urine Mucus Few None Seen Urine Glucose Normal Normal mg/dL Urine Test Negative Negative Urine Opiates Screen Neg NEGATIVE Urine Fentanyl Screen Neg NEGATIVE Urine Barbiturates Screen Neg NEGATIVE Urine Phencyclidine Screen Neg NEGATIVE Urine Amphetamines Screen Neg NEGATIVE Urine Benzodiazepines Screen Neg NEGATIVE Urine Cocaine Screen Neg NEGATIVE Urine Cannabinoids Screen Pos NEGATIVE Iron Level 23 L 50-170 ug/dL Total Iron Binding Capacity 175 L 250-425 ug/dL Percent Iron Saturation 13.1 L 15-50 % Ferritin 287.5 10-291 ng/mL Lactate Dehydrogenase 153 120-246 U/L Thyroid Stimulating Hormone (TSH) 20.72 H 0.55-4.78 uIU/mL Microbiology Date/Time Source Procedure Growth Status 04/27/24 01:08 Nose MRSA Screen - Final Complete 04/26/24 11:45 Stool Stool Culture - Final Complete 04/26/24 11:45 Stool Shiga Toxin I & II - Final Complete 04/25/24 17:30 Voided Urine Urine Culture - Final Complete Problems(with codes): (1) Opportunistic infection (2) HIV disease (3) Severe protein-calorie malnutrition (4) Elevated liver enzymes (5) Scabies exposure (6) Pneumocystis jiroveci pneumonia (7) Multifocal pneumonia (8) Diarrhea Plan/Recommendation ASSESSMENT AND PLAN: ID Problem List: HIV/AIDS - Non-compliance with antiretroviral therapy - 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 female with a past medical history of HIV/AIDS ( 2023: Absolute CD 4 Gregory 22, % CD 4 Pos. Lymph. 3.1), untreated MAC, who presents with flu-like symptoms for the last 7 days, including green, watery diarrhea for the last 4 days. Her diarrhea is chronic and has acutely worsened to the [facility] where she is requiring electrolyte repletion. She was diagnosed with MAC infection on July 31 and was started on ethambutol, Bactrim, and Biktarvy but has been non-compliant with her medications. Labs reveal severe anemia (Hgb 7.5), hyponatremia (Na 130), and urine drug screen positive for cannabinoids and amphetamines(in the past). CT abdomen/pelvis shows hepatosplenomegaly and numerous clusters of enlarged lymph nodes around the mesenteric root measuring up to 1.7 cm, as well as prominent lymph nodes in the pelvis and groin. From her last hospitalization, the following were positive. Plan: - Provide supportive care: - Transfuse PRBCs if hemoglobin <7 g/dL. - Pain management for abdominal pain. - Antipyretics for fevers. - Further diagnostics: - Obtain Quantiferon-TB Gold test.--> negative - Send stool cultures, ova and parasites, and C. difficile testing. - Screen for CMV antibodies due to diarrhea.--> positive for exposure, would check CMV DNA levels. - Check Cryptococcus antigen.--> negative - Obtain AFB cultures from blood, stool, and sputum. - Screen for toxoplasma antigen.--> negative - Screen for syphilis, gonorrhea, chlamydia.-->negative - Check hepatitis B core IgM antibody.-->negative - Monitor patient closely. - Consider starting prednisone after ruling out cryptococcal infection. Antibiotics: - continue Biktarvy - continue Azithromycin, ethambutol. start Amikacin for broader MAC therapy - continue Bactrim PJP prophylaxis so long as patient can tolerate - continue Meropenem for infectious colitis - recommended expanded viral and parasitic enteric pcr panel send out. Isolation Precautions: Standard Assessment and plan was discussed with the patient as written above Plan is subject to change pending incorporation of new incoming informat ion/diagnostics. Updates may be added as addendum at the bottom (OR TOP) of this note Thank you for interesting consult. ID will continue to follow. Please contact Infectious Disease for any questions or concerns. Beverly Garcia M.D. [facility] Ph: ? History: The patient's chart and medications were reviewed in detail and the patient was seen and examined. History obtained from: patient Татьяна Michelle is a 28 y.o. female with a past medical history of HIV/AIDS and presumed MAC infection, who presents with flu-like symptoms for the last 7 days, including cough, runny nose, fevers, abdominal pain, headaches, fatigue, dizziness, and night sweats. She also reports green, watery diarrhea for the last 4 days. She was diagnosed with MAC infection on July 31 and was started on ethambutol, Bactrim, and Biktarvy but has been non-compliant with her medications. She does not know her CD4 count but acknowledges non-compliance with her regimen. She denies smoking and alcohol use. She uses marijuana and urine drug screen is positive for cannabinoids and amphetamines. No known drug allergies. Review of Systems: A complete 10 system review of systems was completed and negative except as noted in the HPI or here. ROS: - CONSTITUTIONAL: Reports fever, fatigue, night sweats, dizziness. - HEENT: Reports headaches. - RESPIRATORY: Reports cough, runny nose; denies shortness of breath. - CV: Denies chest pain and palpitations. - GI: Reports abdominal pain and green, watery diarrhea. - : Denies dysuria and urinary frequency. - MSK: Denies myalgia and joint pain. - SKIN: Reports pale skin; denies rash and pruritus. - NEUROLOGICAL: Reports headaches and dizziness. - PSYCHIATRIC: Reports agitation. Past Medical History: Diagnosis Date HIV/AIDS Presumed MAC infection diagnosed on 08/01/2023 Anemia Hyponatremia Hepatitis A Positive hepatitis B core antibody Past Surgical History: Cholecystectomy section Tonsillectomy Home Medications: Prior to Admission medications Medication Sig ethambutol Dose unknown, non-compliant. sulfamethoxazole-trimethoprim (BACTRIM) Dose unknown, non-compliant. Biktarvy (bictegravir/emtricitabine/tenofovir alafenamide) Dose unknown, non- compliant. Allergies: No Known Drug Allergies Family History: Family History No pertinent family history on file. Social History: Socioeconomic History Marital status: Not on file Number of children: Not on file Occupational History Not on file Tobacco Use Smoking status: Never Vaping Use Vaping status: Never Used Substance and Sexual Activity Alcohol use: Denies Drug use: Uses marijuana; positive urine drug screen for cannabinoids and amphetamines Sexual activity: Not on file Other Topics Concern Not on file Social History Narrative Not on file Social Determinants of Health Not on file. Objective: Vital Signs on Arrival: Temp: 100.1 F BP: 118/66 mmHg Pulse: 125 bpm Resp: 16 SpO2: 97% on room air Most Recent Vital Signs: Temp: 100.1 F BP: 118/66 mmHg Pulse: 125 bpm Resp: 16 SpO2: 97% on room air Admission Weight: Not provided. Physical Exam: General: Lethargic, agitated, pale appearance. Neck: Supple. No masses. HEENT: PERRL. Normal lids and conjunctiva. Moist mucous membranes. Reports headaches. Heart: Tachycardic at 125 bpm, regular rhythm. No murmur. No lower extremity edema. Lungs: Normal respiratory effort. Clear to auscultation bilaterally. No wheezes. No crackles. Abdomen: Mildly distended. Non-tender. Hepatomegaly and splenomegaly palpable up to 5 cm below costal margin. No masses or abdominal hernia. Msk: No digital cyanosis. Normal strength and tone in all 4 limbs. Skin: Pale. Warm and dry, no rashes. Neuro: Alert but lethargic. No facial droop or slurred speech. Extra-ocular movements intact. Sensation intact to soft touch in all 4 limbs. Psych: Agitated mood. Full affect. Oriented to person, place, time, and situation. Lines: Active Lines No active lines documented. Diagnostic Studies: Available diagnostic studies were reviewed personally. Significant relevant results and findings are outlined below or addressed in the Assessment and Plan above. Pertinent Imaging: Recent Results (from the past 360 hour(s)) CT Abdomen and Pelvis with Contrast - Impression IMPRESSION: 1. Hepatosplenomegaly. 2. Numerous clusters of enlarged lymph nodes around the mesenteric root measuring up to 1.7 cm. 3. Prominent lymph nodes in the pelvis and groin. 4. Clinical correlation with lymphoproliferative process is recommended. Chest X-ray - Impression IMPRESSION: No acute cardiopulmonary disease. Laboratory Findings: - Hemoglobin: 7.5 g/dL (anemia) - Sodium: 130 mEq/L (hyponatremia) - WBC: 9 x10^3/?L - Urine drug screen: Positive for cannabinoids and amphetamines - Negative for COVID-19 and Influenza A Plan discussed with: Patient Plan discussed with: Patient BEVERLY GARCIA MD Apr 28, 2024 15:13
[2024-04-28] MEDS: LOPERAMIDE HCL 2 MG CAP/TAB PO ONE (15:44)
--- NOTE | 2024-04-28 20:53 | DVHPNRES ---
Progress Note Date Seen: Apr 28, 2024 Resident Creating Document: JHTawannaJMADELINE CarlosIZAIAH RESIDENT Has the PT tested + for MRSA If YES, has PT been informed?: No Medical Necessity Reason Pt with a Central, PICC or Fol: No Subjective Review of Systems Patient seen and examined with the bedside Reported multiple episodes of watery stools but lesser than yesterday Feels weak has mild SOB but SpO2 >95% on room air Denies chest pain, palpitations, headache Objective vital signs Vital Sign Date Time Temp Pulse Resp B/P (MAP) Pulse Ox O2 Delivery O2 Flow Rate FiO2 04/28/24 16:56 97.6 108 17 94/48 (63) 98 97.6 04/28/24 08:00 Nasal Cannula* 2 28 Total Intake and Output 04/27/24 04/27/24 04/28/24 15:00 23:00 07:00 Intake Total 400 ml 1986 ml 1650 ml Balance 400 ml 1986 ml 1650 ml medications Current Medications Medications Dose Ordered Sig/Era Route Start Time Stop Time Status Last Admin Dose Admin Acetaminophen 650 mg Q6HP PRN PO 04/25/24 22:15 04/26/24 02:13 650 MG Ondansetron HCl 4 mg Q4HP PRN IV 04/25/24 22:15 04/26/24 02:13 4 MG Morphine Sulfate 2 mg Q4HPRN PRN IV 04/25/24 22:15 Trimethoprim/ Sulfamethoxazole 2 tab Q8HR PO 04/26/24 06:00 UNV Patient Own Medication 1 cap QID PO 04/26/24 06:00 UNV Patient Own Medication 1 cap TID PO 04/26/24 06:00 UNV Patient Own Medication 1 tab DAILY PO 04/26/24 10:00 UNV Patient Own Medication 100 mg Q4HR PO 04/26/24 02:00 Hold Metronidazole 100 ml @ 100 mls/hr Q8HR IV 04/26/24 06:00 04/28/24 14:06 100 MLS/HR Prenat Multivit/ [place]/Iron/Folic Ac 1 DAILY PO 04/26/24 10:00 04/28/24 11:22 1 Trimethoprim/ Sulfamethoxazole 10 ml/Dextrose 260 ml @ 173.333 mls/hr DAILY IV 04/26/24 10:00 04/28/24 11:43 173.333 MLS/HR Meropenem 50 ml @ 17 mls/hr Q8HR IV 04/26/24 14:00 04/28/24 15:45 17 MLS/HR Azithromycin 250 ml @ 125 mls/hr DAILY IV 04/27/24 10:00 04/28/24 10:00 125 MLS/HR Clonazepam 0.25 mg Q12HP PRN PO 04/26/24 15:45 04/28/24 11:22 0.25 MG Cholestyramine Resin 4 gm Q12HR@11,23 PO 04/27/24 23:00 04/28/24 11:23 4 GM Diphenoxylate HCl/ Atropine 2.5 mg Q12HP PRN PO 04/27/24 15:15 Lactated Ringer's 1,000 ml @ 120 mls/hr Q8H20M IV 04/27/24 19:00 04/28/24 11:40 120 MLS/HR Melatonin 5 mg HS PO 04/28/24 22:00 Levothyroxine Sodium 125 mcg QAM@0600 PO 04/29/24 06:00 Patient Own Medication 1 DAILY PO 04/29/24 10:00 Albumin Human 100 ml @ 100 mls/hr Q8H IV 04/28/24 10:30 04/29/24 03:29 04/28/24 18:44 100 MLS/HR Sodium Bicarbonate 650 mg BID PO 04/28/24 22:00 04/30/24 21:59 Enteral Nutritional Formula 240 ml TIDWM PO 04/29/24 08:00 UNV Sodium Phosphate 1 tab TIDWM PO 04/29/24 08:00 05/02/24 07:59 UNV Magnesium Sulfate/ Dextrose 100 ml @ 100 mls/hr Q1HR IV 04/28/24 21:00 04/28/24 22:59 UNV Calcium/Vitamin D 1 tab BIDWM PO 04/29/24 08:00 UNV Ethambutol HCl 1,200 mg DAILY PO 04/29/24 10:00 UNV Examination Gen - mild conjunctival pallor, no icterus, no cyanosis, no clubbing, no LAD, no edema . Skin - Patients skin is warm and dry.. HEENT - normocephalic, atraumatic, dry mucous membranes. Neck - full ROM, no LAD, no JVD Pulmonary - B/L vesicular breath sounds. no crackles , no wheezing, no stridor. cardiovascular - variable S1,S2 heard. no added sounds no murmurs heard. GI - soft abdomen without tenderness to palpation. no hepatospleenomegaly. Bowel sounds normoactive Neurological - Bilateral upper extremity strength 5/5, bilateral lower extremity strength 4/5, no facial droop, normal speech, no tremor, no sensory deficiets. 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 #Likely Sepsis due to enteritis seen on CT scan #HIV #Likely medication noncompliance # h/o MAC - upgraded to tele - stool C diff negative, Campylobacter and shiga toxin negative - stool for Cryptosporidium sent - infectious disease consult pending - broad-spectrum antibiotics - meropenam - azithromycin IV and ethambutol PO for MAC - Bactrim prophylaxis for PJP - GI consult - recommended to add Questran, diphenoxylate - IV fluid resuscitation - loperamide given, but to be used judiciously as needed #Severe anemia likely d/t GI bleed status post transfusion #severe leukopenia #Non-anion gap metabolic acidosis likely due to diarrhea - IV fluids - reverse isolation - H&H stable after transfusion yesterday # Hypokalemia # Hypomagnesemia # hypophosphatemia # hypocalcemia # Malnutrition # Hypoalbuminemia - replenished - monitor - ensure protein - Given albumin 25mg tid today - one of dose of lasix given following the first dose of 25mg albumin for diuresis, patient refused the next dose #Primary hypothyroidism TSH 20, low free T4 low/normal t3 - levothyroxine 125mcg #Polysubstance abuse Marijuana use DVT prophylaxis: SCDs PUD prophylaxis: protonix Goals of care discussed with the patient for 21 minutes Code status: Full code Case discussed with Dr Bansal Plan discussed with: Patient My Orders My Orders Orders - GREGG BRUNER RESIDENT Procedure Category Date Status Time Chest Portable XY 04/28/24 Resulted 08:23 Levothyroxine Tablet PHA 04/29/24 In Process (Synthroid Tablet) 06:00 Patients Own PHA 04/29/24 In Process Medication 10:00 Albumin 25% (Albutein) PHA 04/28/24 In Process 10:30 Full Liq Diet DIET 04/28/24 Transmitted Dinner Sodium Bicarb Tab PHA 04/28/24 In Process 22:00 Nutritional PHA 04/29/24 Logged Supplements (Ensure 08:00 Pota Phos & Sod Phos PHA 04/29/24 Logged Tablet (Neutra-Phos 08:00 Magnesium Sulfate PHA 04/28/24 Logged 1gm/100ml 21:00 Calcium W/Vit D PHA 04/29/24 Logged Tablet (Oscal W/Vit D 08:00 Complete Blood Count LAB 04/29/24 Verified 04:00 Comprehensive LAB 04/29/24 Verified Metabolic Panel 04:00 Parathyroid Hormone LAB 04/29/24 Verified Intact 04:00 Ethambutol Hcl PHA 04/29/24 Logged (Myambutol) 10:00 Dietary Evaluation Review Comments: 1) Consider another anti-diarrheal 2) Continue to promote optimal PO intake 3) F/u with immunology 4) Continue to monitor I&O, labs, and skin integrity Expected Outcomes/Goals: 1) appetite and labs to improve 2) f/u in 3-5 days CC Plasma Assessment Blood Product Administration S: [id number] Date of Service: Apr 28, 2024 Billing Provider: SHARON BANSAL MD Common Visit Codes: [id number] INP/OBS CARE(HIGH) GREGG BRUNER RESIDENT Apr 28, 2024 20:53 SHARON BANSAL MD Apr 30, 2024 10:09
[2024-04-28] MEDS: MAGNESIUM SULFATE 1GM/100ML 100 ML IV SCH (21:41)
[2024-04-28] MEDS: SODIUM BICARBONATE 650 MG TAB PO SCH (21:42)
[2024-04-28] MEDS: MELATONIN 5 MG TAB PO SCH (21:42)
[2024-04-29] VITALS (12 sets, daily range): BP systolic 83–107; BP diastolic 44–57; PULSE 97–116; RESP 15–21; TEMP 97.3–98.5; O2SAT 100
[2024-04-29] MEDS: DIPHENOXYLATE W/ATROPINE 2.5 MG TAB PO PRN (05:29)
[2024-04-29] MEDS: PANTOPRAZOLE 40 MG TAB PO SCH (05:32)
[2024-04-29] MEDS: LEVOTHYROXINE SODIUM 50 MCG TAB PO SCH (05:32)
[2024-04-29 07:55] LABS: Basophils # (auto) 0 10 ^3/uL (0-0.2); Eosinophils # (auto) 0 10 ^3/uL (0-0.8); Lymphocytes # (auto) 0.3 10 ^3/uL (0.4-5.4); Monocytes # (auto) 0.1 10 ^3/uL (0-1.3); Platelet Count (auto) 116 10^3/uL (140-450); Red Cell Distribution Width 18.3 % (11.8-14.3)
[2024-04-29 07:57] LABS: Basophils % (auto) 0.3 % (0.0-2.0); Eosinophils % (auto) 1.6 % (0.0-7.0); Hematocrit 18.9 % (36.0-46.0); Lymphocytes % (auto) 28.8 % (10.0-50.0); Mean Corpuscular Hemoglobin 29.5 pg (28.0-32.0); Mean Corpuscular Hgb Conc. 33.4 g/dL (32.0-36.0); Mean Corpuscular Volume 88.3 fL (80.0-100.0); Monocytes % (auto) 7.8 % (0.0-12.0); Neutrophils # (auto) 0.6 10 ^3/uL (1.6-8.6); Neutrophils % (auto) 61.5 % (37.0-80.0); Nucleated Red Blood Cells % 0.1 %; Red Blood Cells 2.15 10^6/uL (4.0-5.20)
[2024-04-29] MEDS: Ensure Enlive Strawberry 8oz Bottle PO SCH (08:00)
[2024-04-29 08:07] LABS: Hemoglobin 6.3 g/dL (12.2-16.2); White Blood Cell 0.9 10^3/uL (4.4-10.8)
[2024-04-29 08:24] LABS: Anion Gap 15 (5-15); BUN/Creatinine Ratio 19.4 (10.0-20.0); Chloride 105 mmol/L (98-107); Glucose 75 mg/dL (74-106)
[2024-04-29 08:25] LABS: Bilirubin, Total 0.6 mg/dL (0.2-1.0)
[2024-04-29] MEDS: CALCIUM W/VIT D (600MG/400IU) TAB PO SCH (08:30)
[2024-04-29 08:32] LABS: Alanine Aminotransferase < 9 U/L (7-40); Albumin 1.7 g/dL (3.2-4.8); Alkaline Phosphatase 26 U/L (46-116); Aspartate Aminotransferase 9 U/L (13-40); Blood Urea Nitrogen 6 mg/dL (9-23); Carbon Dioxide 11 mmol/L (20-31); Sodium 131 mmol/L (136-145); Total Protein 4.7 g/dL (5.7-8.2)
[2024-04-29] MEDS: diphenhdrAMINE HCL 25 MG CAP PO ONE (08:43)
[2024-04-29] MEDS: NEUTRA-PHOS TABLET PO SCH (08:43)
[2024-04-29] MEDS: POTASSIUM EFFERVESENT TAB 25 MEQ PO ONE (09:00)
[2024-04-29] MEDS: ETHAMBUTOL HCL 400 MG TAB PO SCH (10:57)
[2024-04-29] MEDS: FILGRASTIM (TBO) 300 MCG/0.5 ML SYRG SC ONE (12:58)
[2024-04-29] MEDS: ALBUMIN 25% 50 ML IV ONE (14:00)
[2024-04-29] MEDS: FUROSEMIDE 20 MG/2 ML VIAL IV ONE (14:35)
--- NOTE | 2024-04-29 16:26 | DVHPNRES ---
Progress Note Date Seen: Apr 29, 2024 Resident Creating Document: ROHAN SOLOMON RESIDENT Has the PT tested + for MRSA If YES, has PT been informed?: No Medical Necessity Reason Pt with a Central, PICC or Fol: No The following are medically ne: Díaz Catheter Reason for díaz catheter: Strict I&O Subjective Review of Systems Татьяна Michelle is a patient with newly diagnosed HIV infection, who remains in critical condition and is being closely monitored. She was evaluated at the bedside today and reports slight improvement in her symptoms, including a return of appetite. Her current admission has been complicated by severe bone marrow suppression. Her most recent white blood cell count (WBC) was 0.9, for which she received filgrastim (G-CSF). She was also noted to have profound anemia, with a hemoglobin level of 6.3, and received one unit of blood transfusion. Additionally, she reports 7-8 episodes of diarrhea ( less comparred from admission were she had 15) ,she was found to be FOBT (fecal occult blood test) positive, raising concern for possible GI bleeding, which may contribute to her anemia. Potassium levels were low and have been repleted accordingly. CD4 count and Cryptococcus antibody testing are currently pending, both important in the context of her HIV status and immunocompromised state.Due to fluid overload and hypotension, she was given IV albumin to support her intravascular volume. However, despite albumin administration, she began developing crackles on lung auscultation, raising concern for pulmonary edema due to third-spacing of fluids. A chest X-ray has been ordered to evaluate for pulmonary congestion or infiltrates. The patient also has marked 3+ pitting edema in both lower extremities. To manage fluid overload, she was started on Lasix 20 mg IV, and placed on a mechanical soft diet. A Díaz catheter was inserted for strict intake and output (I/Os) monitoring. REVIEW OF SYSTEMS (ROS): General: Reports slight improvement, increased appetite Constitutional: Positive for fatigue; denies fever or chills HEENT: Denies headache or visual changes Cardiovascular: Denies chest pain or palpitations Respiratory: Positive for shortness of breath with possible fluid overload GI: Positive for nausea, positive FOBT; no vomiting or abdominal pain reported : No dysuria or hematuria; Díaz catheter in place Musculoskeletal: Positive for lower extremity swelling Neuro: No confusion or focal weakness Skin: No new rashes or skin lesions Psych: No active hallucinations or agitation reported Objective vital signs Vital Sign Date Time Temp Pulse Resp B/P (MAP) Pulse Ox O2 Delivery O2 Flow Rate FiO2 04/29/24 15:01 98.4 111 20 101/57 98.4 04/29/24 12:51 100 04/29/24 08:00 Nasal Cannula* 2 28 Total Intake and Output 04/28/24 04/28/24 04/29/24 15:00 23:00 07:00 Intake Total 300 ml 1950 ml 1250 ml Balance 300 ml 1950 ml 1250 ml medications Current Medications Medications Dose Ordered Sig/Era Route Start Time Stop Time Status Last Admin Dose Admin Acetaminophen 650 mg Q6HP PRN PO 04/25/24 22:15 04/29/24 05:33 650 MG Ondansetron HCl 4 mg Q4HP PRN IV 04/25/24 22:15 04/29/24 01:30 4 MG Trimethoprim/ Sulfamethoxazole 2 tab Q8HR PO 04/26/24 06:00 UNV Patient Own Medication 1 cap QID PO 04/26/24 06:00 UNV Patient Own Medication 1 cap TID PO 04/26/24 06:00 UNV Patient Own Medication 1 tab DAILY PO 04/26/24 10:00 UNV Patient Own Medication 100 mg Q4HR PO 04/26/24 02:00 Hold Prenat Multivit/ [place]/Iron/Folic Ac 1 DAILY PO 04/26/24 10:00 04/29/24 10:31 1 Trimethoprim/ Sulfamethoxazole 10 ml/Dextrose 260 ml @ 173.333 mls/hr DAILY IV 04/26/24 10:00 04/29/24 10:33 173.333 MLS/HR Meropenem 50 ml @ 17 mls/hr Q8HR IV 04/26/24 14:00 04/29/24 14:36 17 MLS/HR Azithromycin 250 ml @ 125 mls/hr DAILY IV 04/27/24 10:00 04/29/24 08:50 125 MLS/HR Clonazepam 0.25 mg Q12HP PRN PO 04/26/24 15:45 04/29/24 12:42 0.25 MG Cholestyramine Resin 4 gm Q12HR@11,23 PO 04/27/24 23:00 04/28/24 22:03 4 GM Diphenoxylate HCl/ Atropine 2.5 mg Q12HP PRN PO 04/27/24 15:15 04/29/24 05:29 2.5 MG Lactated Ringer's 1,000 ml @ 120 mls/hr Q8H20M IV 04/27/24 19:00 04/29/24 13:00 120 MLS/HR Melatonin 5 mg HS PO 04/28/24 22:00 04/28/24 21:42 5 MG Levothyroxine Sodium 125 mcg QAM@0600 PO 04/29/24 06:00 04/29/24 05:32 125 MCG Patient Own Medication 1 DAILY PO 04/29/24 10:00 04/29/24 10:33 1 Sodium Bicarbonate 650 mg BID PO 04/28/24 22:00 04/30/24 21:59 04/29/24 10:31 650 MG Enteral Nutritional Formula 240 ml TIDWM PO 04/29/24 08:00 04/29/24 12:33 240 ML Sodium Phosphate 1 tab TIDWM PO 04/29/24 08:00 05/02/24 07:59 04/29/24 12:42 1 TAB Calcium/Vitamin D 1 tab BIDWM PO 04/29/24 08:00 04/29/24 08:30 1 TAB Ethambutol HCl 1,200 mg DAILY PO 04/29/24 10:00 04/29/24 10:57 1,200 MG Pantoprazole Sodium 40 mg DAILY@0600 PO 04/29/24 06:00 04/29/24 05:32 40 MG Examination PHYSICAL EXAM: General: Appears chronically ill but alert; responds appropriately to questions HEENT: No scleral icterus; mucous membranes slightly dry Cardiovascular: Regular rate and rhythm; no murmurs; mild tachycardia Pulmonary: Bibasilar crackles noted; increased work of breathing not present Abdomen: Soft, non-tender, no hepatosplenomegaly or guarding; bowel sounds present Extremities: 3+ pitting edema in bilateral lower extremities Skin: No rashes or lesions noted Neuro: Alert and oriented; no focal deficits : Díaz catheter in place; urine output being monitored laboratory and microbiology Laboratory Tests 04/29/24 07:35 Test 04/29/24 07:35 Range/Units Serum Glucose 75 74-106 mg/dL Microbiology Date/Time Source Procedure Growth Status 04/27/24 01:08 Nose MRSA Screen - Final Complete 04/26/24 11:45 Stool Stool Culture - Final Complete 04/26/24 11:45 Stool Shiga Toxin I & II - Final Complete 04/25/24 17:30 Voided Urine Urine Culture - Final Complete Problem List/Assessment/Plan Problem List/Assessment/Plan #Dehydration likely due to uncontrolled diarrhea likely due to 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 #Likely Sepsis due to enteritis seen on CT scan #HIV #Likely medication noncompliance # h/o MAC - upgraded to tele - stool C diff negative, Campylobacter and shiga toxin negative - stool for Cryptosporidium sent - infectious disease consult pending - broad-spectrum antibiotics - meropenam - azithromycin IV and ethambutol PO for MAC - Bactrim prophylaxis for PJP - GI consult - recommended to add Questran, diphenoxylate - IV fluid resuscitation - loperamide given, but to be used judiciously as needed - chest x ray - díaz cath - strict I&O #Severe anemia #severe leukopenia #Non-anion gap metabolic acidosis likely due to diarrhea/hypoalbuminemia #3rd spacing - 1 PRBC - IV fluids DC - reverse isolation - H&H - filgrastim 300 # Hypokalemia # Hypomagnesemia # hypophosphatemia # hypocalcemia # Malnutrition # Hypoalbuminemia - replenished - monitor - ensure protein - Given albumin 25mg tid today - one of dose of lasix given following the first dose of 25mg albumin for diuresis #Primary hypothyroidism TSH 20, low free T4 low/normal t3 -consider levothyroxine #Hepatosplenomegaly #Enteritis -as above #Polysubstance abuse Marijuana use case discussed with dr hernandez Goals of care discussed with the patient for 31 minutes Code status: Full code Plan discussed with: Patient My Orders My Orders Orders - ROHAN SOLOMON RESIDENT Procedure Category Date Status Time Obtain Consent For: ORDERS 04/29/24 Transmitted 08:16 Pulse Ox Cont Per Day RT 04/29/24 Logged 08:16 Insert Díaz Catheter ARISTEO 04/29/24 In Process 13:21 Urinalysis LAB 04/29/24 Uncollected 13:21 Chest Portable XY 04/29/24 Logged 13:21 Mechanical Soft Diet DIET 04/29/24 Transmitted Dinner Dietary Evaluation Review Comments: 1) Consider another anti-diarrheal 2) Continue to promote optimal PO intake 3) F/u with immunology 4) Continue to monitor I&O, labs, and skin integrity Expected Outcomes/Goals: 1) appetite and labs to improve 2) f/u in 3-5 days CC Plasma Assessment Blood Product Administration S: [id number] Date of Service: Apr 29, 2024 Billing Provider: SHARON HERNANDEZ MD Common Visit Codes: [id number] INP/OBS CARE(HIGH) ROHAN SOLOMON RESIDENT Apr 29, 2024 16:26 SHARON HERNANDEZ MD Apr 30, 2024 10:25
[2024-04-29 18:25] LABS: Hematocrit 28.8 % (36.0-46.0); Hemoglobin 9.1 g/dL (12.2-16.2)
[2024-04-29] MEDS: POTASSIUM CHL 20MEQ/50ML 50 ML IV SCH (18:27)
[2024-04-29] MEDS: SODIUM CHL 0.9% 100 ML IV SCH (18:39)
[2024-04-29 19:41] LABS: Urine Bacteria None Seen /hpf (None Seen)
[2024-04-29 20:04] LABS: Urine Blood Negative /uL (Negative); Urine Clarity Clear (Clear); Urine Color Light-Yellow (Yellow); Urine Hyaline Cast FEW /lpf (0 - 2); Urine Mucus FEW (None Seen); Urine Protein, UAD Negative (Negative); Urine Specific Gravity 1.007 (1.001-1.035); Urine Squamous Epithelial Cell None Seen /hpf (<5); Urine Urobilinogen Normal (Negative); Urine WBC < 1 /HPF (0-5)
--- NOTE | 2024-04-29 20:44 | DVH ---
CHEST RADIOGRAPH Indication: pulm edema Technique: Single frontal view of the chest was obtained Comparison: XY CHEST PORTABLE on DOS: 04/28/24, XY CHEST PORTABLE on DOS: 01/03/24 FINDINGS: Lines and Tubes: None Lungs: Mild bilateral perihilar peribronchial thickening findings may represent bronchitis. Pleura: No effusion. No pneumothorax. Cardiomediastinal contours: Unremarkable Bones: No acute osseous abnormality. IMPRESSION: 1. Findings suggest bronchitis correlate clinically..
[2024-04-30] VITALS (8 sets, daily range): BP systolic 89–92; BP diastolic 39–57; PULSE 99–117; RESP 19–22; TEMP 97.9–98.3; O2SAT 99–100
[2024-04-30] MEDS: HYDROcodone-ACET 5/325MG TAB PO ONE ×2 (03:14→15:08)
[2024-04-30] MEDS: POTASSIUM EFFERVESENT TAB 25 MEQ PO ONE ×2 (07:00→11:00)
[2024-04-30 07:27] LABS: Hemoglobin 8.2 g/dL (12.2-16.2)
[2024-04-30 07:32] LABS: Mean Corpuscular Hemoglobin 29.1 pg (28.0-32.0); Mean Corpuscular Hgb Conc. 32.7 g/dL (32.0-36.0); Platelet Count (auto) 94 10^3/uL (140-450); Red Blood Cells 2.82 10^6/uL (4.0-5.20); Red Cell Distribution Width 17.5 % (11.8-14.3)
[2024-04-30 07:37] LABS: Sodium 137 mmol/L (136-145)
[2024-04-30 07:38] LABS: Anion Gap 17 (5-15)
[2024-04-30 07:39] LABS: Calcium 6.9 mg/dL (8.7-10.4); Carbon Dioxide 11 mmol/L (20-31); Chloride 109 mmol/L (98-107); Potassium 3.3 mmol/L (3.5-5.1)
[2024-04-30 07:43] LABS: BUN/Creatinine Ratio 23.1 (10.0-20.0)
[2024-04-30 07:44] LABS: Blood Urea Nitrogen 6 mg/dL (9-23); Glucose 70 mg/dL (74-106)
[2024-04-30 07:52] LABS: Basophils % (manual) 0 (0.0-2.0); Blast Cells 0; Metamyelocytes % 0; Myelocytes % 0; Promyelocytes % 0; Reactive Lymphocytes 0; White Blood Cell 1.4 10^3/uL (4.4-10.8)
[2024-04-30 08:37] LABS: Anisocytosis Slight; Band Neutrophils % (manual) 3; Eosinophils % (manual) 2 (0-7); Lymphocytes % (manual) 23 (10.0-50.0); Monocytes % (manual) 4 (0-12); Platelet Estimate Decreased
[2024-04-30 08:57] LABS: Lactic Acid w/Reflex 3.3 mmol/L (0.4-2.0)
[2024-04-30 10:56] LABS: Hepatitis A Ab IgM Negative; Hepatitis B Core IgM Negative (Negative); Hepatitis B Surface Antigen Negative (Negative); Hepatitis C Antibody Negative (Negative)
[2024-04-30 11:47] LABS: Magnesium 1.8 mg/dL (1.6-2.6)
[2024-04-30 11:49] LABS: Albumin 1.8 g/dL (3.2-4.8)
--- NOTE | 2024-04-30 14:29 | DVHPNRES ---
Progress Note Date Seen: Apr 30, 2024 Resident Creating Document: MADELINE BRUNERIZAIAH RESIDENT Has the PT tested + for MRSA If YES, has PT been informed?: No Medical Necessity Reason Pt with a Central, PICC or Fol: No The following are medically ne: Díaz Catheter Reason for díaz catheter: Strict I&O Subjective Review of Systems Patient was seen and examined at the bedside Reports that her bowel movements have decreased and she was feeling a little bit better than yesterday CD4 count and cryptococcus antigen is pending Hepatitis panel negative Patient was lactic acid increased and she still has 3+ pitting edema in bilateral lower extremities Objective vital signs Vital Sign Date Time Temp Pulse Resp B/P (MAP) Pulse Ox O2 Delivery O2 Flow Rate FiO2 04/30/24 13:00 98.1 110 19 89/50 (63) 99 98.1 04/30/24 07:30 Room Air* 0 21 Total Intake and Output 04/29/24 04/29/24 04/30/24 15:00 23:00 07:00 Intake Total 560 ml 1400 ml 1500 ml Output Total 1300 ml 1250 ml Balance 560 ml 100 ml 250 ml medications Current Medications Medications Dose Ordered Sig/Era Route Start Time Stop Time Status Last Admin Dose Admin Acetaminophen 650 mg Q6HP PRN PO 04/25/24 22:15 04/29/24 21:27 650 MG Ondansetron HCl 4 mg Q4HP PRN IV 04/25/24 22:15 04/29/24 01:30 4 MG Trimethoprim/ Sulfamethoxazole 2 tab Q8HR PO 04/26/24 06:00 UNV Patient Own Medication 1 cap QID PO 04/26/24 06:00 UNV Patient Own Medication 1 cap TID PO 04/26/24 06:00 UNV Patient Own Medication 1 tab DAILY PO 04/26/24 10:00 UNV Patient Own Medication 100 mg Q4HR PO 04/26/24 02:00 Hold Prenat Multivit/ [place]/Iron/Folic Ac 1 DAILY PO 04/26/24 10:00 04/30/24 08:18 1 Trimethoprim/ Sulfamethoxazole 10 ml/Dextrose 260 ml @ 173.333 mls/hr DAILY IV 04/26/24 10:00 04/30/24 09:58 173.333 MLS/HR Meropenem 50 ml @ 17 mls/hr Q8HR IV 04/26/24 14:00 04/30/24 14:15 17 MLS/HR Azithromycin 250 ml @ 125 mls/hr DAILY IV 04/27/24 10:00 04/30/24 08:19 125 MLS/HR Clonazepam 0.25 mg Q12HP PRN PO 04/26/24 15:45 04/30/24 10:05 0.25 MG Cholestyramine Resin 4 gm Q12HR@11,23 PO 04/27/24 23:00 04/30/24 11:23 4 GM Diphenoxylate HCl/ Atropine 2.5 mg Q12HP PRN PO 04/27/24 15:15 04/30/24 10:05 2.5 MG Lactated Ringer's 1,000 ml @ 120 mls/hr Q8H20M IV 04/27/24 19:00 04/30/24 14:16 120 MLS/HR Melatonin 5 mg HS PO 04/28/24 22:00 04/29/24 21:28 5 MG Levothyroxine Sodium 125 mcg QAM@0600 PO 04/29/24 06:00 04/30/24 05:49 125 MCG Patient Own Medication 1 DAILY PO 04/29/24 10:00 04/30/24 08:21 1 Sodium Bicarbonate 650 mg BID PO 04/28/24 22:00 04/30/24 21:59 04/30/24 08:18 650 MG Enteral Nutritional Formula 240 ml TIDWM PO 04/29/24 08:00 04/30/24 08:17 240 ML Sodium Phosphate 1 tab TIDWM PO 04/29/24 08:00 05/02/24 07:59 04/30/24 14:17 1 TAB Calcium/Vitamin D 1 tab BIDWM PO 04/29/24 08:00 04/30/24 08:18 1 TAB Ethambutol HCl 1,200 mg DAILY PO 04/29/24 10:00 04/30/24 08:18 1,200 MG Pantoprazole Sodium 40 mg DAILY@0600 PO 04/29/24 06:00 04/30/24 05:49 40 MG Acetaminophen/ Hydrocodone Bitart 1 tab Q6HPRN PRN PO 04/29/24 22:00 Examination Gen - mild conjunctival pallor, no icterus, no cyanosis, no clubbing, no LAD, 3+ pitting edema in the bilateral lower extremities up to the knee Skin - Patients skin is warm and dry.. HEENT - normocephalic, atraumatic, dry mucous membranes. Neck - full ROM, no LAD, no JVD Pulmonary - B/L equal breath sounds with a minimal basilar crackles, no wheezing, no stridor. cardiovascular - variable S1,S2 heard. no added sounds no murmurs heard. GI - soft abdomen without tenderness to palpation. no hepatospleenomegaly. Bowel sounds normoactive Neurological - Bilateral upper extremity strength 4/5, bilateral lower extremity strength 4/5, no facial droop, normal speech, no tremor, no sensory deficiets. 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 #Likely Sepsis due to enteritis seen on CT scan #HIV #Likely medication noncompliance # h/o MAC - upgraded to tele - stool C diff negative, Campylobacter and shiga toxin negative - stool for Cryptosporidium sent - infectious disease consult pending - broad-spectrum antibiotics - meropenam - azithromycin IV and ethambutol PO for MAC - Bactrim prophylaxis for PJP - GI consult - recommended to add Questran, diphenoxylate - IV fluid resuscitation - loperamide given, but to be used judiciously as needed #Severe anemia likely d/t GI bleed status post transfusion #severe leukopenia #Non-anion gap metabolic acidosis likely due to diarrhea - IV fluids - reverse isolation - H&H stable after transfusion yesterday # Hypokalemia # Hypomagnesemia # hypophosphatemia # hypocalcemia # Malnutrition # Hypoalbuminemia - replenished - monitor - ensure protein - Given albumin 25mg today - one of dose of lasix given following albumin for diuresis #Primary hypothyroidism TSH 20, low free T4 low/normal t3 - levothyroxine 125mcg #Polysubstance abuse Marijuana use DVT prophylaxis: SCDs PUD prophylaxis: protonix Goals of care discussed with the patient for 21 minutes Code status: Full code Case discussed with Dr Poon Plan discussed with: Patient Dietary Evaluation Review Comments: 1) Consider another anti-diarrheal 2) Continue to promote optimal PO intake 3) F/u with immunology 4) Continue to monitor I&O, labs, and skin integrity Expected Outcomes/Goals: 1) appetite and labs to improve 2) f/u in 3-5 days CC Plasma Assessment Blood Product Administration S: [id number] Date of Service: Apr 30, 2024 Billing Provider: SHARON POON MD Common Visit Codes: [id number] INP/OBS CARE(HIGH) GREGG BRUNER RESIDENT Apr 30, 2024 14:29 SHARON POON MD May 01, 2024 14:45
[2024-04-30] MEDS: ALBUMIN 25% 100 ML IV ONE (15:05)
[2024-04-30] MEDS: FUROSEMIDE 20 MG/2 ML VIAL IV ONE (15:15)
[2024-04-30] MEDS: LOPERAMIDE HCL 2 MG CAP/TAB PO ONE (18:01)
[2024-04-30] MEDS: POTASSIUM CHL 20 Meq TABLET PO ONE ×3 (18:04→23:14)
[2024-04-30] MEDS: HYDROcodone-ACET 5/325MG TAB PO PRN (22:23)
[2024-04-30] MEDS: SODIUM CHLORIDE 0.9% 1,000 ML IV ONE (23:13)
[2024-04-30] MEDS: MAGNESIUM SULFATE 1GM/100ML 100 ML IV ONE (23:15)
[2024-05-01] VITALS (59 sets, daily range): BP systolic 81–132; BP diastolic 40–94; PULSE 103–135; RESP 16–41; TEMP 97.8–99.5; O2SAT 92–100
[2024-05-01] MEDS: POTASSIUM CHL 20 Meq TABLET PO SCH (08:32)
[2024-05-01] MEDS ORDERED: NOREPINEPHRINE 8 MG/250ML KIT 250 ML IV SCH (09:15)
[2024-05-01 09:28] LABS: Base Excess -9.7 mmol/L (-2.0-3.0)
[2024-05-01] MEDS: NOREPINEPHRINE 8 MG/250ML KIT 250 ML IV ONE (09:43)
[2024-05-01] MEDS: NOREPINEPHRINE 8 MG/250ML KIT 250 ML IV SCH (10:00)
--- NOTE | 2024-05-01 10:20 | DVH ---
ULTRASOUND ABDOMEN LIMITED INDICATION: cirrhosis TECHNIQUE: Multiple real-time sonographic images of the abdomen were obtained. COMPARISON: None FINDINGS: The visualized liver parenchyma appears echogenic consistent with steatosis. . The liver measures 23.9 cm. There is small amount of perihepatic ascites. No discrete hepatic lesion or intrahepat ic biliary ductal dilatation is identified. Gallbladder is surgically absent. The common duct is not seen on the current study. The right kidney measures 11.7 cm length. There is right renal pelviectasis. There is no sonograph ic evidence of nephrolithiasis. Visualized portions of the pancreas appears within normal limits. IMPRESSION: 1. Hepatomegaly with hepatic steatosis. 2. Right renal pelviectasis. There is no sonographic evidence of nephrolithiasis. 3. Cholecystectomy. HS:Y
[2024-05-01 10:35] LABS: Alanine Aminotransferase < 9 U/L (7-40); Albumin 1.6 g/dL (3.2-4.8); Alkaline Phosphatase 45 U/L (46-116); Anion Gap 13 (5-15); Aspartate Aminotransferase 10 U/L (13-40); BUN/Creatinine Ratio 20.8 (10.0-20.0); Blood Urea Nitrogen 5 mg/dL (9-23); Calcium 6.9 mg/dL (8.7-10.4); Carbon Dioxide 13 mmol/L (20-31); Chloride 108 mmol/L (98-107); Glucose 88 mg/dL (74-106); Potassium 4.1 mmol/L (3.5-5.1); Sodium 134 mmol/L (136-145); Total Protein 4.4 g/dL (5.7-8.2)
[2024-05-01 10:36] LABS: Bilirubin, Total 0.4 mg/dL (0.2-1.0)
[2024-05-01 10:47] LABS: Magnesium 1.8 mg/dL (1.6-2.6)
[2024-05-01 10:48] LABS: INR 1.65 (0.9-1.15); Partial Thromboplastin Time 63.9 SEC (24.5-34.5); Phosphorus 3.3 mg/dL (2.4-5.1); Prothrombin Time 16.6 sec (9.3-11.8)
[2024-05-01 11:03] LABS: Basophils # (auto) 0 10 ^3/uL (0-0.2); Basophils % (auto) 0.2 % (0.0-2.0); Eosinophils # (auto) 0 10 ^3/uL (0-0.8); Eosinophils % (auto) 2.8 % (0.0-7.0); Hematocrit 25.7 % (36.0-46.0); Hemoglobin 7.6 g/dL (12.2-16.2); Lactic Acid w/Reflex 3.6 mmol/L (0.4-2.0); Lymphocytes # (auto) 0.3 10 ^3/uL (0.4-5.4); Lymphocytes % (auto) 24.2 % (10.0-50.0); Mean Corpuscular Hemoglobin 29.1 pg (28.0-32.0); Mean Corpuscular Hgb Conc. 29.4 g/dL (32.0-36.0); Mean Corpuscular Volume 98.9 fL (80.0-100.0); Monocytes # (auto) 0.1 10 ^3/uL (0-1.3); Monocytes % (auto) 5.6 % (0.0-12.0); Neutrophils # (auto) 0.9 10 ^3/uL (1.6-8.6); Neutrophils % (auto) 67.2 % (37.0-80.0); Nucleated Red Blood Cells % 0.3 %; Red Cell Distribution Width 18.6 % (11.8-14.3)
[2024-05-01 11:10] LABS: White Blood Cell 1.3 10^3/uL (4.4-10.8)
[2024-05-01 11:28] LABS: Platelet Count (auto) 142 10^3/uL (140-450)
[2024-05-01] MEDS: ALBUMIN 25% 100 ML IV SCH (12:16)
[2024-05-01] MEDS: MICAFUNGIN SODIUM 100 MG in SODIUM CHL 0.9% 100 ML IV ONE (12:34)
--- NOTE | 2024-05-01 12:58 | DVH ---
CHEST RADIOGRAPH Indication: sob Technique: Single frontal view of the chest was obtained Comparison: XY CHEST PORTABLE on DOS: 04/29/24 FINDINGS: Lines and Tubes: None Lungs: Bilateral interstitial prominence without focal consolidation. Pleura: No effusion. No pneumothorax. Cardiomediastinal contours: Stable cardiomegaly. Bones: No acute osseous abnormality. IMPRESSION: 1. No significant interval change.
[2024-05-01] MEDS: FUROSEMIDE 20 MG/2 ML VIAL IV SCH (14:00)
[2024-05-01] MEDS ORDERED: FUROSEMIDE 40 MG/4 ML VIAL IV SCH (14:00)
[2024-05-01] MEDS: LIDOCAINE 1% (LOCAL ANESTH.) PF 5ml SDV ID ONE (14:45)
[2024-05-01 15:50] LABS: CD4/CD8 Ratio 0.04
[2024-05-01 16:25] LABS: Erythrocyte Sedimentation Rate 20 mm/hr (0-20)
--- NOTE | 2024-05-01 21:30 | DVHPN2 ---
Progress Note - Dictate Date Seen: May 01, 2024 Has the PT tested + for MRSA If YES, has PT been informed?: No Medical Necessity Reason Pt with a Central, PICC or Fol: No The following are medically ne: Díaz Catheter Reason for díaz catheter: Strict I&O Subjective Pt seen in labor relations director ICU Diarhoea improving; soft mushy stool now 3-4day Low dose pressors Pt was refusing Questran vital signs Vital Sign Date Time Temp Pulse Resp B/P (MAP) Pulse Ox O2 Delivery O2 Flow Rate FiO2 05/01/24 20:00 113 33 98 Nasal Cannula* 2 28 05/01/24 18:45 109/91 (97) 05/01/24 16:00 98.0 98.0 Total Intake and Output 04/30/24 04/30/24 05/01/24 15:00 23:00 07:00 Intake Total 560 ml 2710 ml 2010 ml Output Total 2650 ml 1200 ml Balance 560 ml 60 ml 810 ml medications Current Medications Medications Dose Ordered Sig/Era Route Start Time Stop Time Status Last Admin Dose Admin Acetaminophen 650 mg Q6HP PRN PO 04/25/24 22:15 04/29/24 21:27 650 MG Ondansetron HCl 4 mg Q4HP PRN IV 04/25/24 22:15 04/30/24 15:16 4 MG Trimethoprim/ Sulfamethoxazole 2 tab Q8HR PO 04/26/24 06:00 UNV Patient Own Medication 1 cap QID PO 04/26/24 06:00 UNV Patient Own Medication 1 cap TID PO 04/26/24 06:00 UNV Patient Own Medication 1 tab DAILY PO 04/26/24 10:00 UNV Patient Own Medication 100 mg Q4HR PO 04/26/24 02:00 Hold Prenat Multivit/ [place]/Iron/Folic Ac 1 DAILY PO 04/26/24 10:00 05/01/24 08:31 1 Trimethoprim/ Sulfamethoxazole 10 ml/Dextrose 260 ml @ 173.333 mls/hr DAILY IV 04/26/24 10:00 05/01/24 08:37 173.333 MLS/HR Meropenem 50 ml @ 17 mls/hr Q8HR IV 04/26/24 14:00 05/01/24 14:58 17 MLS/HR Azithromycin 250 ml @ 125 mls/hr DAILY IV 04/27/24 10:00 05/01/24 08:38 125 MLS/HR Clonazepam 0.25 mg Q12HP PRN PO 04/26/24 15:45 05/01/24 01:35 0.25 MG Cholestyramine Resin 4 gm Q12HR@11,23 PO 04/27/24 23:00 04/30/24 11:23 4 GM Diphenoxylate HCl/ Atropine 2.5 mg Q12HP PRN PO 04/27/24 15:15 05/01/24 15:45 2.5 MG Melatonin 5 mg HS PO 04/28/24 22:00 04/30/24 22:15 5 MG Levothyroxine Sodium 125 mcg QAM@0600 PO 04/29/24 06:00 05/01/24 06:11 125 MCG Patient Own Medication 1 DAILY PO 04/29/24 10:00 05/01/24 08:32 1 Enteral Nutritional Formula 240 ml TIDWM PO 04/29/24 08:00 05/01/24 18:50 240 ML Sodium Phosphate 1 tab TIDWM PO 04/29/24 08:00 05/02/24 07:59 05/01/24 12:22 1 TAB Calcium/Vitamin D 1 tab BIDWM PO 04/29/24 08:00 05/01/24 18:02 1 TAB Ethambutol HCl 1,200 mg DAILY PO 04/29/24 10:00 05/01/24 08:31 1,200 MG Pantoprazole Sodium 40 mg DAILY@0600 PO 04/29/24 06:00 05/01/24 06:11 40 MG Acetaminophen/ Hydrocodone Bitart 1 tab Q6HPRN PRN PO 04/29/24 22:00 05/01/24 20:40 1 TAB Potassium Chloride 20 meq DAILY PO 05/01/24 10:00 05/01/24 08:32 20 MEQ Norepinephrine Bitartrate 250 ml @ 3.75 mls/hr Q24H IV 05/01/24 09:15 UNV Norepinephrine Bitartrate 250 ml @ 3.75 mls/hr Q24H IV 05/01/24 10:00 05/01/24 10:00 3.75 MLS/HR Albumin Human 100 ml @ 100 mls/hr Q8H IV 05/01/24 11:30 05/02/24 04:29 05/01/24 19:36 100 MLS/HR Furosemide 20 mg Q8HR IV 05/01/24 12:00 05/02/24 11:59 05/01/24 14:57 20 MG Micafungin Sodium 100 mg/Sodium Chloride 100 ml @ 100 mls/hr DAILY IV 05/02/24 10:00 Sodium Chloride 10 ml QSHIFT@10,22 IV 05/01/24 22:00 objective General Appearance: Alert, Oriented X3, Cooperative, No acute distress. HEENT: Atraumatic, PERRLA, EOMI, Mucous membrane dry/pale Respiratory: Clear to auscultation, Normal air movement Cardiovascular: Regular rate, Normal S1, Normal S2, No murmurs, no chest wall tenderness Abdominal: NO distention, no tenderness, bowel sounds present, no scars noted, hepatosplenomegaly palpated Extremities: No clubbing, No cyanosis, No edema, Normal pulses, No tenderness/swelling Skin: No rashes, No breakdown, No significant lesion Neuro: Normal gait, Normal speech, Strength at 5/5 X4 ext, Normal tone, Sensation intact, Cranial nerves 3-12 NL, Reflexes 2+ Psych/Mental Status: Mental status NL, Mood NL laboratory and microbiology Laboratory Tests 05/01/24 09:58 Test 05/01/24 09:58 Range/Units Serum Glucose 88 74-106 mg/dL Problems(with codes): (1) Generalized weakness (2) Diarrhea (3) Severe anemia (4) History of HIV or AIDS Prognosis PLAN Lomotil or Loperamide prn Questran with apple sauce Stool tests negative Supportive care Dietary Evaluation Review Comments: 1) Consider another anti-diarrheal 2) Continue to promote optimal PO intake 3) F/u with immunology 4) Continue to monitor I&O, labs, and skin integrity Expected Outcomes/Goals: 1) appetite and labs to improve 2) f/u in 3-5 days Plan discussed with: Patient, Other (ICU Nurse) CC Plasma Assessment Blood Product Administration S: [id number] JAMESON KIM MD May 01, 2024 21:30
--- NOTE | 2024-05-01 22:07 | DVHPNRES ---
Progress Note Date Seen: May 01, 2024 Resident Creating Document: ANIBAL BRUNEREUNIVY RESIDENT Has the PT tested + for MRSA If YES, has PT been informed?: No Medical Necessity Reason Pt with a Central, PICC or Fol: Yes The following are medically ne: PICC Line, Díaz Catheter Reason for díaz catheter: Strict I&O Subjective Review of Systems In the morning patient was hypotensive with a blood pressure readings of 57/27 following which in with a blood pressure reading of 87/45. Patient was alert and oriented x3 but was more sleepy than usual Patient reported that overnight she had less bowel movements as compared to the previous night She felt weak , able to move around in the bed difficulty and gets short of breath while moving in the bed. Patient was noticed to have increased work of breathing following which an ABG was done which showed compensated metabolic acidosis with respiratory alkalosis Patient was started on vasopressor with norepinephrine and was shifted to the ICU status of care. Objective vital signs Vital Sign Date Time Temp Pulse Resp B/P (MAP) Pulse Ox O2 Delivery O2 Flow Rate FiO2 05/01/24 20:00 113 33 98 Nasal Cannula* 2 28 05/01/24 18:45 109/91 (97) 05/01/24 16:00 98.0 98.0 Total Intake and Output 04/30/24 04/30/24 05/01/24 15:00 23:00 07:00 Intake Total 560 ml 2710 ml 2010 ml Output Total 2650 ml 1200 ml Balance 560 ml 60 ml 810 ml medications Current Medications Medications Dose Ordered Sig/Era Route Start Time Stop Time Status Last Admin Dose Admin Acetaminophen 650 mg Q6HP PRN PO 04/25/24 22:15 04/29/24 21:27 650 MG Ondansetron HCl 4 mg Q4HP PRN IV 04/25/24 22:15 04/30/24 15:16 4 MG Trimethoprim/ Sulfamethoxazole 2 tab Q8HR PO 04/26/24 06:00 UNV Patient Own Medication 1 cap QID PO 04/26/24 06:00 UNV Patient Own Medication 1 cap TID PO 04/26/24 06:00 UNV Patient Own Medication 1 tab DAILY PO 04/26/24 10:00 UNV Patient Own Medication 100 mg Q4HR PO 04/26/24 02:00 Hold Prenat Multivit/ Geographic Area Intelligence Officer/Iron/Folic Ac 1 DAILY PO 04/26/24 10:00 05/01/24 08:31 1 Trimethoprim/ Sulfamethoxazole 10 ml/Dextrose 260 ml @ 173.333 mls/hr DAILY IV 04/26/24 10:00 05/01/24 08:37 173.333 MLS/HR Meropenem 50 ml @ 17 mls/hr Q8HR IV 04/26/24 14:00 05/01/24 14:58 17 MLS/HR Azithromycin 250 ml @ 125 mls/hr DAILY IV 04/27/24 10:00 05/01/24 08:38 125 MLS/HR Clonazepam 0.25 mg Q12HP PRN PO 04/26/24 15:45 05/01/24 01:35 0.25 MG Cholestyramine Resin 4 gm Q12HR@23 PO 04/27/24 23:00 04/30/24 11:23 4 GM Diphenoxylate HCl/ Atropine 2.5 mg Q12HP PRN PO 04/27/24 15:15 05/01/24 15:45 2.5 MG Melatonin 5 mg HS PO 04/28/24 22:00 04/30/24 22:15 5 MG Levothyroxine Sodium 125 mcg QAM@0600 PO 04/29/24 06:00 05/01/24 06:11 125 MCG Patient Own Medication 1 DAILY PO 04/29/24 10:00 05/01/24 08:32 1 Enteral Nutritional Formula 240 ml TIDWM PO 04/29/24 08:00 05/01/24 18:50 240 ML Sodium Phosphate 1 tab TIDWM PO 04/29/24 08:00 05/02/24 07:59 05/01/24 12:22 1 TAB Calcium/Vitamin D 1 tab BIDWM PO 04/29/24 08:00 05/01/24 18:02 1 TAB Ethambutol HCl 1,200 mg DAILY PO 04/29/24 10:00 05/01/24 08:31 1,200 MG Pantoprazole Sodium 40 mg DAILY@0600 PO 04/29/24 06:00 05/01/24 06:11 40 MG Acetaminophen/ Hydrocodone Bitart 1 tab Q6HPRN PRN PO 04/29/24 22:00 05/01/24 20:40 1 TAB Potassium Chloride 20 meq DAILY PO 05/01/24 10:00 05/01/24 08:32 20 MEQ Norepinephrine Bitartrate 250 ml @ 3.75 mls/hr Q24H IV 05/01/24 09:15 UNV Norepinephrine Bitartrate 250 ml @ 3.75 mls/hr Q24H IV 05/01/24 10:00 05/01/24 10:00 3.75 MLS/HR Albumin Human 100 ml @ 100 mls/hr Q8H IV 05/01/24 11:30 05/02/24 04:29 05/01/24 19:36 100 MLS/HR Furosemide 20 mg Q8HR IV 05/01/24 12:00 05/02/24 11:59 05/01/24 14:57 20 MG Micafungin Sodium 100 mg/Sodium Chloride 100 ml @ 100 mls/hr DAILY IV 05/02/24 10:00 Sodium Chloride 10 ml QSHIFT@10,22 IV 05/01/24 22:00 Examination Constitutional: Patient was alert and oriented to time, place and person but was more somnolent Gen - mild conjunctival pallor, no icterus, no cyanosis, no clubbing, no LAD, 3+ pitting edema in the bilateral lower extremities up to the knee Skin - Patients skin is warm and dry.. HEENT - normocephalic, atraumatic, dry mucous membranes. Neck - full ROM, no LAD, mild elevation in the JVD up to the middle 3rd of the SCM Pulmonary - B/L equal breath sounds with a minimal basilar crackles, no wheezing, no stridor. cardiovascular - variable S1,S2 heard. no added sounds no murmurs heard. GI - soft abdomen without tenderness to palpation. no hepatospleenomegaly. Bowel sounds normoactive Neurological - Bilateral upper extremity strength 4/5, bilateral lower extremity strength 4/5, no facial droop, normal speech, no tremor, no sensory deficiets. laboratory and microbiology Laboratory Tests 05/01/24 09:58 Test 05/01/24 09:58 Range/Units Serum Glucose 88 74-106 mg/dL Microbiology Date/Time Source Procedure Growth Status 04/27/24 01:08 Nose MRSA Screen - Final Complete 04/26/24 11:45 Stool Stool Culture - Final Complete 04/26/24 11:45 Stool Shiga Toxin I & II - Final Complete 04/25/24 17:30 Voided Urine Urine Culture - Final Complete Problem List/Assessment/Plan Problem List/Assessment/Plan Neurology - patient was mental status alert and oriented x 3 - GCS 14 [id number] - somnolent Cardiovascular # septic shock likely due to AIDS # severe dehydration due to acute intractable diarrhea # lactic acidosis # pericardial effusion - currently on norepinephrine at 6 microgram/minute - goal MAP > 65mmhg - fluid resuscitation currently held as the patient had severe 3+ bilateral pitting edema up to the knees - low serum albumin - albumin 25 mg q.8 hour with Lasix 20 mg IV q.8 hours for diuresis - echo done but report is pending. On the imaging is some pericardial effusion. ESR WNL. 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 daily - Lomotil for diarrhea - infectious disease consulted and further recommendations Endocrine # hypothyroidism # hypoparathyroidism # pericardial effusion maybe possible due to hypothyroidism - TSH elevated at 20.72 with a low free T4 and borderline low total T3 - patient was started on 125 mcg levothyroxine q.a.m. - low PTH level - calculated serum calcium > 8 mg/dL Hematology # leukocytopenia with neutropenia # normocytic normochromic anemia with a low reticulocyte index # ? Bone marrow suppression due to AIDS # coagulopathy with elevated PT INR - stool occult blood positive - monitoring H&H - patient was received total of 3 PRBCs since in the hospital Electrolyte imbalance # Hypokalemia # Hypomagnesemia # hypophosphatemia - replenished DVT prophylaxis: SCDs PUD prophylaxis: protonix Goals of care discussed with the patient for 35 minutes. Code status: Full code Case discussed with Dr Poon critical care 55 minutes Plan discussed with: Patient My Orders My Orders Orders - GREGG BRUNER RESIDENT Procedure Category Date Status Time Abg W/ Co-Ox RT 05/01/24 Logged 08:59 * Picc Line Consult CONS 05/01/24 Transmitted 09:24 Norepinephrine 8 PHA 05/01/24 In Process Mg/250ml Kit 10:00 Blood Culture IBAN 05/01/24 In Process 14:44 Albumin 25% (Albutein) PHA 05/01/24 In Process 11:30 Furosemide Injection PHA 05/01/24 In Process (Lasix Injection) 12:00 Micafungin Sodium PHA 05/02/24 In Process (Mycamine) 10:00 Electrocardigram EKG 05/01/24 Logged 11:56 Chest Portable XY 05/01/24 Resulted 12:29 Change Dressing Prn ARISTEO 05/01/24 In Process 14:41 Sodium Chloride Lock PHA 05/01/24 In Process (Saline Lock Ns) 22:00 Do Not Use Picc For ARISTEO 05/01/24 In Process Blood Cult 14:41 May Draw Blood From ARISTEO 05/01/24 In Process Picc 14:41 Ok To Use Picc ARISTEO 05/01/24 In Process 14:41 Change Picc Dressing [facility] 05/01/24 In Process Q7 Days 14:41 Dietary Evaluation Review Comments: 1) Consider another anti-diarrheal 2) Continue to promote optimal PO intake 3) F/u with immunology 4) Continue to monitor I&O, labs, and skin integrity Expected Outcomes/Goals: 1) appetite and labs to improve 2) f/u in 3-5 days CC Plasma Assessment Blood Product Administration S: [id number] Date of Service: May 01, 2024 Billing Provider: SHARON POON MD Common Visit Codes: [id number] CARE 30-74 MIN GREGG BRUNER RESIDENT May 01, 2024 22:07 SHARON POON MD May 03, 2024 13:59
[2024-05-01] MEDS: SODIUM CHLOR 0.9% PF (SALINE LOCK) 10ML VIAL/SYR IV SCH (22:18)
[2024-05-02] VITALS (101 sets, daily range): BP systolic 81–124; BP diastolic 34–83; PULSE 85–155; RESP 15–43; TEMP 97.7–98.9; O2SAT 96–100
[2024-05-02] MEDS: guaiFENesin-DM 100/10mg/5ml SYR PO PRN (05:15)
[2024-05-02 05:38] LABS: Hematocrit 27.1 % (36.0-46.0); Hemoglobin 8.8 g/dL (12.2-16.2); Mean Corpuscular Hemoglobin 28.8 pg (28.0-32.0); Mean Corpuscular Hgb Conc. 32.5 g/dL (32.0-36.0); Mean Corpuscular Volume 88.8 fL (80.0-100.0); Platelet Count (auto) 73 10^3/uL (140-450); Red Blood Cells 3.05 10^6/uL (4.0-5.20); Red Cell Distribution Width 17.4 % (11.8-14.3); White Blood Cell 2.1 10^3/uL (4.4-10.8)
[2024-05-02 05:40] LABS: Alkaline Phosphatase 53 U/L (46-116); Anion Gap 13 (5-15); Aspartate Aminotransferase 13 U/L (13-40); Chloride 106 mmol/L (98-107)
[2024-05-02 05:41] LABS: Basophils % (manual) 0 (0.0-2.0); Bilirubin, Total 0.7 mg/dL (0.2-1.0); Blast Cells 0; Eosinophils % (manual) 0 (0-7); Metamyelocytes % 0; Myelocytes % 0; Promyelocytes % 0; Reactive Lymphocytes 0
[2024-05-02 05:42] LABS: Folate (Folic Acid) 6.33 ng/mL (>5.38)
[2024-05-02 05:43] LABS: Alanine Aminotransferase < 9 U/L (7-40); Albumin 2.3 g/dL (3.2-4.8); BUN/Creatinine Ratio 20.8 (10.0-20.0); Blood Urea Nitrogen < 5 mg/dL (9-23); Calcium 7.1 mg/dL (8.7-10.4); Carbon Dioxide 16 mmol/L (20-31); Glucose 124 mg/dL (74-106); Potassium 3.4 mmol/L (3.5-5.1); Sodium 135 mmol/L (136-145); Total Protein 5.1 g/dL (5.7-8.2)
[2024-05-02 06:07] LABS: Cryptococcus Antibody Negative (Neg:<1:2)
[2024-05-02 07:09] LABS: Band Neutrophils % (manual) 2; Lymphocytes % (manual) 35 (10.0-50.0); Monocytes % (manual) 7 (0-12); Platelet Estimate Decreased
[2024-05-02] MEDS ORDERED: AMIKACIN 0 ML IV SCH (08:15)
[2024-05-02] MEDS: LACTATED RINGER'S 500 ML IV ONE ×2 (09:03→20:00)
[2024-05-02] MEDS: HYDROCORTISONE SOD SUCC 100 MG/2ML INJ VIAL IV ONE (09:09)
[2024-05-02] MEDS: AMIKACIN 1,000 MG in D5W 5% 100 ML IV ONE (09:58)
[2024-05-02] MEDS ORDERED: MICAFUNGIN SODIUM 100 MG in SODIUM CHL 0.9% 100 ML IV SCH ×2 (10:00→12:00)
[2024-05-02 10:17] LABS: Lactic Acid w/Reflex 4.5 mmol/L (0.4-2.0)
[2024-05-02 11:01] LABS: Base Excess -5.7 mmol/L (-2.0-3.0)
[2024-05-02] MEDS: LOPERAMIDE HCL 2 MG CAP/TAB PO ONE (12:16)
[2024-05-02] MEDS: AZITHROMYCIN 500MG/ 250ML 250 ML IV SCH (12:18)
[2024-05-02] MEDS: HYDROCORTISONE SOD SUCC 100 MG/2ML INJ VIAL IV SCH (15:06)
--- NOTE | 2024-05-02 18:16 | DVHPN2 ---
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 Patient had a flexi Seal rectal tube placed last night She has drained about 400 mL of some loose brown stools Patient is sleeping comfortably Low dose pressors On IV antibiotics vital signs Vital Sign Date Time Temp Pulse Resp B/P (MAP) Pulse Ox O2 Delivery O2 Flow Rate FiO2 05/02/24 18:00 135 22 95/65 (75) 99 05/02/24 18:00 Room Air* 0 21 05/02/24 15:00 98.0 98.0 Total Intake and Output 05/01/24 05/01/24 05/02/24 15:00 23:00 07:00 Intake Total 1381.25 ml 1440.00 ml 857.00 ml Output Total 2300 ml 4910 ml Balance 1381.25 ml -860.00 ml -4053.00 ml medications Current Medications Medications Dose Ordered Sig/Era Route Start Time Stop Time Status Last Admin Dose Admin Acetaminophen 650 mg Q6HP PRN PO 04/25/24 22:15 04/29/24 21:27 650 MG Ondansetron HCl 4 mg Q4HP PRN IV 04/25/24 22:15 05/02/24 12:43 4 MG Trimethoprim/ Sulfamethoxazole 2 tab Q8HR PO 04/26/24 06:00 UNV Patient Own Medication 1 cap QID PO 04/26/24 06:00 UNV Patient Own Medication 1 cap TID PO 04/26/24 06:00 UNV Patient Own Medication 1 tab DAILY PO 04/26/24 10:00 UNV Patient Own Medication 100 mg Q4HR PO 04/26/24 02:00 Hold Prenat Multivit/ Health Informatics Advisor/Iron/Folic Ac 1 DAILY PO 04/26/24 10:00 05/02/24 10:55 1 Trimethoprim/ Sulfamethoxazole 10 ml/Dextrose 260 ml @ 173.333 mls/hr DAILY IV 04/26/24 10:00 05/02/24 10:53 173.333 MLS/HR Meropenem 50 ml @ 17 mls/hr Q8HR IV 04/26/24 14:00 05/02/24 14:11 17 MLS/HR Cholestyramine Resin 4 gm Q12HR@ PO 04/27/24 23:00 05/02/24 10:54 4 GM Diphenoxylate HCl/ Atropine 2.5 mg Q12HP PRN PO 04/27/24 15:15 05/02/24 05:13 2.5 MG Melatonin 5 mg HS PO 04/28/24 22:00 05/01/24 22:18 5 MG Levothyroxine Sodium 125 mcg QAM@0600 PO 04/29/24 06:00 05/02/24 05:14 125 MCG Patient Own Medication 1 DAILY PO 04/29/24 10:00 05/02/24 10:56 1 Enteral Nutritional Formula 240 ml TIDWM PO 04/29/24 08:00 05/02/24 18:07 240 ML Calcium/Vitamin D 1 tab BIDWM PO 04/29/24 08:00 05/02/24 17:50 1 TAB Ethambutol HCl 1,200 mg DAILY PO 04/29/24 10:00 05/02/24 10:55 1,200 MG Pantoprazole Sodium 40 mg DAILY@0600 PO 04/29/24 06:00 05/02/24 05:12 40 MG Acetaminophen/ Hydrocodone Bitart 1 tab Q6HPRN PRN PO 04/29/24 22:00 05/02/24 15:55 1 TAB Potassium Chloride 20 meq DAILY PO 05/01/24 10:00 05/02/24 10:54 20 MEQ Norepinephrine Bitartrate 250 ml @ 3.75 mls/hr Q24H IV 05/01/24 09:15 UNV Norepinephrine Bitartrate 250 ml @ 3.75 mls/hr Q24H IV 05/01/24 10:00 05/02/24 08:14 11.25 MLS/HR Sodium Chloride 10 ml QSHIFT@, IV 05/01/24 22:00 05/02/24 10:55 10 ML Guaifenesin/ Dextromethorphan 10 ml Q6HPRN PRN PO 05/01/24 21:45 05/02/24 05:15 10 ML Azithromycin 250 ml @ 125 mls/hr Q24H IV 05/02/24 11:00 05/02/24 12:18 125 MLS/HR Micafungin Sodium 100 mg/Sodium Chloride 100 ml @ 100 mls/hr Q24H IV 05/02/24 12:00 Cancel Amikacin Sulfate 0 ml @ 0 mls/hr PER PHARMACY IV 05/02/24 08:15 Hydrocortisone Sodium Succinate 50 mg Q6H IV 05/02/24 15:00 05/02/24 15:06 50 MG Clonazepam 0.5 mg Q12HP PRN PO 05/02/24 11:30 Amikacin Sulfate 1000 mg/Dextrose 104 ml @ 104 mls/hr DAILY@0900 IV 05/03/24 09:00 objective General Appearance: Alert, Oriented X3, Cooperative, No acute distress. HEENT: Atraumatic, PERRLA, EOMI, Mucous membrane dry/pale Respiratory: Clear to auscultation, Normal air movement Cardiovascular: Regular rate, Normal S1, Normal S2, No murmurs, no chest wall tenderness Abdominal: NO distention, no tenderness, bowel sounds present, no scars noted, hepatosplenomegaly palpated Extremities: No clubbing, No cyanosis, No edema, Normal pulses, No tenderness/swelling Skin: No rashes, No breakdown, No significant lesion Neuro: Normal gait, Normal speech, Strength at 5/5 X4 ext, Normal tone, Sensation intact, Cranial nerves 3-12 NL, Reflexes 2+ Psych/Mental Status: Mental status NL, Mood NL laboratory and microbiology Laboratory Tests 05/02/24 04:25 Test 05/02/24 04:25 Range/Units Serum Glucose 124 H 74-106 mg/dL Problems(with codes): (1) Diarrhea (2) History of HIV or AIDS (3) Generalized weakness (4) Severe anemia Prognosis Plan Pancytopenia is improving Lactic acid also trending down Continue supportive care IV fluid hydration IV antibiotics I will add probiotics Continue Questran and Lomotil Diet as tolerated I will follow up Dietary Evaluation Review Comments: 1) Consider another anti-diarrheal 2) Continue to promote optimal PO intake 3) F/u with immunology 4) Continue to monitor I&O, labs, and skin integrity Expected Outcomes/Goals: 1) appetite and labs to improve 2) f/u in 3-5 days Plan discussed with: Patient, Other (ICU Nurse) CC Plasma Assessment Blood Product Administration S: [id number] JAMESON KIM MD May 02, 2024 18:16
[2024-05-02] MEDS: clonazePAM 0.5 MG TAB PO PRN (18:57)
[2024-05-02] MEDS: LACTATED RINGER'S 1,000 ML IV ONE (22:06)
[2024-05-02] MEDS: OLANZapine 5 MG TAB PO ONE (22:06)
--- NOTE | 2024-05-02 22:31 | DVHPNRES ---
Progress Note Date Seen: May 02, 2024 Resident Creating Document: ANIBAL BRUNEREUNIVY RESIDENT Has the PT tested + for MRSA If YES, has PT been informed?: No Medical Necessity Reason Pt with a Central, PICC or Fol: Yes The following are medically ne: PICC Line, Díaz Catheter Reason for díaz catheter: Strict I&O Subjective Review of Systems Patient was alert and oriented X 4 Patient had 11 bowel movements overnight She felt weak , able to move around in the bed difficulty and gets short of breath while moving in the bed. Patient was noticed to have increased work of breathing following which an ABG was done which showed mixed metabolic acidosis with respiratory alkalosis intermittant tachycardia through the day with HR between 100-120 Objective vital signs Vital Sign Date Time Temp Pulse Resp B/P (MAP) Pulse Ox O2 Delivery O2 Flow Rate FiO2 05/02/24 19:42 97.7 97.7 05/02/24 18:45 128 24 98 05/02/24 18:00 Room Air* 0 21 Total Intake and Output 05/01/24 05/01/24 05/02/24 15:00 23:00 07:00 Intake Total 1381.25 ml 1440.00 ml 857.00 ml Output Total 2300 ml 4910 ml Balance 1381.25 ml -860.00 ml -4053.00 ml medications Current Medications Medications Dose Ordered Sig/Era Route Start Time Stop Time Status Last Admin Dose Admin Acetaminophen 650 mg Q6HP PRN PO 04/25/24 22:15 04/29/24 21:27 650 MG Ondansetron HCl 4 mg Q4HP PRN IV 04/25/24 22:15 05/02/24 12:43 4 MG Trimethoprim/ Sulfamethoxazole 2 tab Q8HR PO 04/26/24 06:00 UNV Patient Own Medication 1 cap QID PO 04/26/24 06:00 UNV Patient Own Medication 1 cap TID PO 04/26/24 06:00 UNV Patient Own Medication 1 tab DAILY PO 04/26/24 10:00 UNV Patient Own Medication 100 mg Q4HR PO 04/26/24 02:00 Hold Prenat Multivit/ [place]/Iron/Folic Ac 1 DAILY PO 04/26/24 10:00 05/02/24 10:55 1 Trimethoprim/ Sulfamethoxazole 10 ml/Dextrose 260 ml @ 173.333 mls/hr DAILY IV 04/26/24 10:00 05/02/24 10:53 173.333 MLS/HR Meropenem 50 ml @ 17 mls/hr Q8HR IV 04/26/24 14:00 05/02/24 22:07 17 MLS/HR Cholestyramine Resin 4 gm Q12HR@11,23 PO 04/27/24 23:00 05/02/24 10:54 4 GM Diphenoxylate HCl/ Atropine 2.5 mg Q12HP PRN PO 04/27/24 15:15 05/02/24 05:13 2.5 MG Melatonin 5 mg HS PO 04/28/24 22:00 05/02/24 22:07 5 MG Levothyroxine Sodium 125 mcg QAM@0600 PO 04/29/24 06:00 05/02/24 05:14 125 MCG Patient Own Medication 1 DAILY PO 04/29/24 10:00 05/02/24 10:56 1 Enteral Nutritional Formula 240 ml TIDWM PO 04/29/24 08:00 05/02/24 18:07 240 ML Calcium/Vitamin D 1 tab BIDWM PO 04/29/24 08:00 05/02/24 17:50 1 TAB Ethambutol HCl 1,200 mg DAILY PO 04/29/24 10:00 05/02/24 10:55 1,200 MG Pantoprazole Sodium 40 mg DAILY@0600 PO 04/29/24 06:00 05/02/24 05:12 40 MG Acetaminophen/ Hydrocodone Bitart 1 tab Q6HPRN PRN PO 04/29/24 22:00 05/02/24 22:07 1 TAB Potassium Chloride 20 meq DAILY PO 05/01/24 10:00 05/02/24 10:54 20 MEQ Norepinephrine Bitartrate 250 ml @ 3.75 mls/hr Q24H IV 05/01/24 09:15 UNV Norepinephrine Bitartrate 250 ml @ 3.75 mls/hr Q24H IV 05/01/24 10:00 05/02/24 08:14 11.25 MLS/HR Sodium Chloride 10 ml QSHIFT@10,22 IV 05/01/24 22:00 05/02/24 22:07 10 ML Guaifenesin/ Dextromethorphan 10 ml Q6HPRN PRN PO 05/01/24 21:45 05/02/24 05:15 10 ML Azithromycin 250 ml @ 125 mls/hr Q24H IV 05/02/24 11:00 05/02/24 12:18 125 MLS/HR Micafungin Sodium 100 mg/Sodium Chloride 100 ml @ 100 mls/hr Q24H IV 05/02/24 12:00 Cancel Amikacin Sulfate 0 ml @ 0 mls/hr PER PHARMACY IV 05/02/24 08:15 Hydrocortisone Sodium Succinate 50 mg Q6H IV 05/02/24 15:00 05/02/24 22:06 50 MG Amikacin Sulfate 1000 mg/Dextrose 104 ml @ 104 mls/hr DAILY@0900 IV 05/03/24 09:00 Saccharomyces Boulardii 250 mg DAILY PO 05/03/24 10:00 Clonazepam 0.5 mg Q12HP PO 05/03/24 06:00 Olanzapine 5 mg DAILY PO 05/03/24 10:00 Examination Constitutional: Patient was alert and oriented to time, place and person and does not appear to be in acute distress Gen - mild conjunctival pallor, no icterus, no cyanosis, no clubbing, no LAD, 2+ pitting edema in the bilateral lower extremities up to the knee Skin - Patients skin is warm and dry.. HEENT - normocephalic, atraumatic, dry mucous membranes. Neck - full ROM, no LAD, mild elevation in the JVD up to the middle 3rd of the SCM Pulmonary - B/L equal breath sounds with a minimal basilar crackles, no wheezing, no stridor. cardiovascular - variable S1,S2 heard. no added sounds no murmurs heard. GI - soft abdomen without tenderness to palpation. no hepatospleenomegaly. Bowel sounds normoactive Neurological - Bilateral upper extremity strength 4/5, bilateral lower extremity strength 4/5, no facial droop, normal speech, no tremor, no sensory deficiets. laboratory and microbiology Laboratory Tests 05/02/24 04:25 Test 05/02/24 04:25 Range/Units Serum Glucose 124 H 74-106 mg/dL Microbiology Date/Time Source Procedure Growth Status 05/01/24 15:47 Blood Blood Culture - Preliminary NO GROWTH AFTER 24 HOURS OF INCUBATION. Resulted 04/27/24 01:08 Nose MRSA Screen - Final Complete 04/26/24 11:45 Stool Stool Culture - Final Complete 04/26/24 11:45 Stool Shiga Toxin I & II - Final Complete 04/25/24 17:30 Voided Urine Urine Culture - Final Complete Problem List/Assessment/Plan Problem List/Assessment/Plan Neurology - patient was mental status alert and oriented x 4 - GCS 15 [id number] Cardiovascular # septic shock likely due to AIDS # severe dehydration due to acute intractable diarrhea # lactic acidosis # pericardial effusion - currently on norepinephrine at 6 microgram/minute - goal MAP > 65mmhg - albumin 25 mg q.8 hour with Lasix 20 mg IV q.8 hours for diuresis given on 05/01/2024 - Over the past 24 hours patient had negative balance of -3500ml, bilateral lower extremity edema has decreased - total of 1 L ringer lactate bolus given today - echo done but report is pending. On the imaging is some pericardial effusion. ESR WNL. 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 daily - Lomotil and loperamide for diarrhea - infectious disease consulted and recommended amikacin - GI on board widened [facility] End[facility] # hypothyroidism # hypoparathyroidism # pericardial effusion maybe possible due to hypothyroidism # inadequate adrenal response - TSH elevated at 20.72 with a low free T4 and borderline low total T3 - patient was started on 125 mcg levothyroxine q.a.m. - low PTH level - calculated serum calcium > 8 mg/dL - a.m. serum cortisol 14.45 which is within normal limits but as the patient is in significant distress and septic shock cortisol should be higher and we suspected inadequate adrenal response - hydrocortisone 50 mg IV q.6 hours Hematology # leukocytopenia with neutropenia # normocytic normochromic anemia with a low reticulocyte index # ? Bone marrow suppression due to AIDS # coagulopathy with elevated PT INR - stool occult blood positive - monitoring H&H - patient was received total of 3 PRBCs since in the hospital Electrolyte imbalance # Hypokalemia # Hypomagnesemia # hypophosphatemia - replenished DVT prophylaxis: SCDs PUD prophylaxis: protonix Goals of care discussed with the patient for 35 minutes. Code status: Full code Case discussed with Dr Poon critical care time spent 50 minutes Plan discussed with: Patient Dietary Evaluation Review Comments: 1) Consider another anti-diarrheal 2) Continue to promote optimal PO intake 3) F/u with immunology 4) Continue to monitor I&O, labs, and skin integrity Expected Outcomes/Goals: 1) appetite and labs to improve 2) f/u in 3-5 days CC Plasma Assessment Blood Product Administration S: [id number] Date of Service: May 02, 2024 Billing Provider: SHARON POON MD Common Visit Codes: [id number] CARE 30-74 MIN GREGG BRUNER RESIDENT May 02, 2024 22:31 SHARON POON MD May 04, 2024 10:58
[2024-05-02] MEDS: POTASSIUM CHL 20MEQ/100ML 100 ML IV ONE (23:00)
[2024-05-02] MEDS: MAGNESIUM SULFATE 1GM/100ML 100 ML IV ONE (23:28)
[2024-05-03] VITALS (102 sets, daily range): BP systolic 70–115; BP diastolic 33–80; PULSE 86–154; RESP 14–32; TEMP 97.4–97.7; O2SAT 95–100
[2024-05-03] MEDS: POTASSIUM CHL 20 Meq TABLET PO ONE (00:48)
[2024-05-03] MEDS: LACTATED RINGER'S 1,000 ML IV ONE ×2 (03:45→15:00)
[2024-05-03 04:09] LABS: Anion Gap 9 (5-15); Carbon Dioxide 23 mmol/L (20-31); Chloride 105 mmol/L (98-107); Potassium 3.9 mmol/L (3.5-5.1); Sodium 137 mmol/L (136-145)
[2024-05-03 04:16] LABS: BUN/Creatinine Ratio 28.6 (10.0-20.0)
[2024-05-03 04:18] LABS: Phosphorus 3.3 mg/dL (2.4-5.1)
[2024-05-03] MEDS: LACTATED RINGER'S 1,000 ML IV SCH (04:21)
[2024-05-03 04:29] LABS: Blood Urea Nitrogen 6 mg/dL (9-23); Calcium 7.7 mg/dL (8.7-10.4); Glucose 149 mg/dL (74-106)
[2024-05-03 04:34] LABS: Lactic Acid w/Reflex 3.1 mmol/L (0.4-2.0)
[2024-05-03] MEDS ORDERED: clonazePAM 0.5 MG TAB PO SCH (06:00)
[2024-05-03 08:26] LABS: Hemoglobin 10.8 g/dL (12.2-16.2); White Blood Cell 3.3 10^3/uL (4.4-10.8)
[2024-05-03 08:28] LABS: Hematocrit 31.6 % (36.0-46.0); Mean Corpuscular Hemoglobin 29.3 pg (28.0-32.0); Mean Corpuscular Hgb Conc. 34.1 g/dL (32.0-36.0); Mean Corpuscular Volume 85.8 fL (80.0-100.0); Platelet Count (auto) 62 10^3/uL (140-450); Red Blood Cells 3.69 10^6/uL (4.0-5.20); Red Cell Distribution Width 16.8 % (11.8-14.3)
[2024-05-03] MEDS: FLORASTOR (S. BOULARDII) 250 MG CAP PO SCH (08:40)
[2024-05-03] MEDS: OLANZapine 5 MG TAB PO SCH (08:40)
[2024-05-03 08:52] LABS: Basophils % (manual) 0 (0.0-2.0); Blast Cells 0; Eosinophils % (manual) 0 (0-7); Metamyelocytes % 0; Myelocytes % 0; Promyelocytes % 0; Reactive Lymphocytes 0
[2024-05-03] MEDS ORDERED: AMIKACIN 1,000 MG in D5W 5% 100 ML IV SCH (09:00)
[2024-05-03] MEDS: AMIKACIN 1,000 MG in D5W 5% 100 ML IV SCH (10:16)
[2024-05-03 11:11] LABS: Band Neutrophils % (manual) 3; Lymphocytes % (manual) 30 (10.0-50.0); Monocytes % (manual) 1 (0-12); Platelet Estimate Decreased
[2024-05-03] MEDS: clonazePAM 0.5 MG TAB PO PRN (14:50)
[2024-05-03] MEDS ORDERED: MORPHINE SULFATE INJ 2 MG/ml SYRG IV PRN (15:00)
[2024-05-03] MEDS: LOPERAMIDE HCL 2 MG CAP/TAB PO ONE (15:13)
[2024-05-03 16:55] LABS: INR 1.33 (0.9-1.15); Partial Thromboplastin Time 37.9 SEC (24.5-34.5); Prothrombin Time 13.7 sec (9.3-11.8)
[2024-05-03 19:56] LABS: Lactic Acid w/Reflex 4.5 mmol/L (0.4-2.0)
[2024-05-03] MEDS: DIPHENOXYLATE W/ATROPINE 2.5 MG TAB PO SCH (20:22)
[2024-05-03] MEDS: ALBUMIN 25% 100 ML IV SCH (21:43)
--- NOTE | 2024-05-03 22:02 | DVHPN2 ---
Progress Note - Dictate Date Seen: May 03, 2024 (3 pm) Has the PT tested + for MRSA If YES, has PT been informed?: No Medical Necessity Reason Pt with a Central, PICC or Fol: Yes The following are medically ne: PICC Line, Díaz Catheter Reason for díaz catheter: Strict I&O Subjective Pt seen in ICU 106 Patient's rectal tube was discontinued last night Nurse reports continued episodes of loose stool Patient is also agitated asking for pain medications Low dose pressors On IV antibiotics vital signs Vital Sign Date Time Temp Pulse Resp B/P (MAP) Pulse Ox O2 Delivery O2 Flow Rate FiO2 05/03/24 20:30 106 26 88/59 (69) 96 05/03/24 20:00 Room Air* 0 21 05/03/24 20:00 97.5 97.5 Total Intake and Output 05/02/24 05/02/24 05/03/24 15:00 23:00 07:00 Intake Total 1974.00 ml 78.75 ml 1540.00 ml Output Total 4200 ml 950 ml Balance -2226.00 ml 78.75 ml 590.00 ml medications Current Medications Medications Dose Ordered Sig/Era Route Start Time Stop Time Status Last Admin Dose Admin Acetaminophen 650 mg Q6HP PRN PO 04/25/24 22:15 05/03/24 13:11 650 MG Ondansetron HCl 4 mg Q4HP PRN IV 04/25/24 22:15 05/02/24 12:43 4 MG Trimethoprim/ Sulfamethoxazole 2 tab Q8HR PO 04/26/24 06:00 UNV Patient Own Medication 1 cap QID PO 04/26/24 06:00 UNV Patient Own Medication 1 cap TID PO 04/26/24 06:00 UNV Patient Own Medication 1 tab DAILY PO 04/26/24 10:00 UNV Patient Own Medication 100 mg Q4HR PO 04/26/24 02:00 Hold Prenat Multivit/ Contract Negotiation Specialist/Iron/Folic Ac 1 DAILY PO 04/26/24 10:00 05/03/24 08:40 1 Trimethoprim/ Sulfamethoxazole 10 ml/Dextrose 260 ml @ 173.333 mls/hr DAILY IV 04/26/24 10:00 05/03/24 08:21 173.333 MLS/HR Meropenem 50 ml @ 17 mls/hr Q8HR IV 04/26/24 14:00 05/03/24 20:21 17 MLS/HR Cholestyramine Resin 4 gm Q12HR@11,23 PO 04/27/24 23:00 05/03/24 08:40 4 GM Melatonin 5 mg HS PO 04/28/24 22:00 05/03/24 20:22 5 MG Levothyroxine Sodium 125 mcg QAM@0600 PO 04/29/24 06:00 05/03/24 05:27 125 MCG Patient Own Medication 1 DAILY PO 04/29/24 10:00 05/03/24 08:42 1 Enteral Nutritional Formula 240 ml TIDWM PO 04/29/24 08:00 05/03/24 17:39 240 ML Calcium/Vitamin D 1 tab BIDWM PO 04/29/24 08:00 05/03/24 17:40 1 TAB Ethambutol HCl 1,200 mg DAILY PO 04/29/24 10:00 05/03/24 08:41 1,200 MG Pantoprazole Sodium 40 mg DAILY@0600 PO 04/29/24 06:00 05/03/24 05:27 40 MG Potassium Chloride 20 meq DAILY PO 05/01/24 10:00 05/03/24 08:41 20 MEQ Norepinephrine Bitartrate 250 ml @ 3.75 mls/hr Q24H IV 05/01/24 09:15 UNV Norepinephrine Bitartrate 250 ml @ 3.75 mls/hr Q24H IV 05/01/24 10:00 05/03/24 00:07 7.5 MLS/HR Sodium Chloride 10 ml QSHIFT@10,22 IV 05/01/24 22:00 05/03/24 20:22 10 ML Guaifenesin/ Dextromethorphan 10 ml Q6HPRN PRN PO 05/01/24 21:45 05/02/24 05:15 10 ML Azithromycin 250 ml @ 125 mls/hr Q24H IV 05/02/24 11:00 05/03/24 08:21 125 MLS/HR Micafungin Sodium 100 mg/Sodium Chloride 100 ml @ 100 mls/hr Q24H IV 05/02/24 12:00 Cancel Amikacin Sulfate 0 ml @ 0 mls/hr PER PHARMACY IV 05/02/24 08:15 Hydrocortisone Sodium Succinate 50 mg Q6H IV 05/02/24 15:00 05/03/24 20:22 50 MG Saccharomyces Boulardii 250 mg DAILY PO 05/03/24 10:00 05/03/24 08:40 250 MG Olanzapine 5 mg DAILY PO 05/03/24 10:00 05/03/24 08:40 5 MG Clonazepam 0.5 mg Q12HP PRN PO 05/03/24 00:30 05/03/24 14:50 0.5 MG Lactated Ringer's 1,000 ml @ 75 mls/hr [id number] IV 05/03/24 03:45 05/03/24 12:14 75 MLS/HR Amikacin Sulfate 1000 mg/Dextrose 104 ml @ 104 mls/hr DAILY@1000 IV 05/03/24 10:00 05/03/24 10:16 104 MLS/HR Acetaminophen/ Hydrocodone Bitart 1 tab Q6HP PRN PO 05/03/24 15:00 Morphine Sulfate 2 mg Q4HPRN PRN IV 05/03/24 15:00 Diphenoxylate HCl/ Atropine 2.5 mg Q6HP PO 05/03/24 21:00 05/03/24 20:22 2.5 MG Albumin Human 100 ml @ 100 mls/hr Q8H IV 05/03/24 20:45 05/04/24 13:44 05/03/24 21:43 100 MLS/HR objective General Appearance: Alert, Oriented X3, Cooperative, No acute distress. HEENT: Atraumatic, PERRLA, EOMI, Mucous membrane dry/pale Respiratory: Clear to auscultation, Normal air movement Cardiovascular: Regular rate, Normal S1, Normal S2, No murmurs, no chest wall tenderness Abdominal: NO distention, no tenderness, bowel sounds present, no scars noted, hepatosplenomegaly palpated Extremities: No clubbing, No cyanosis, No edema, Normal pulses, No tenderness/swelling Skin: No rashes, No breakdown, No significant lesion Neuro: Normal gait, Normal speech, Strength at 5/5 X4 ext, Normal tone, Sensation intact, Cranial nerves 3-12 NL, Reflexes 2+ Psych/Mental Status: Mental status NL, Mood NL laboratory and microbiology Laboratory Tests 05/03/24 07:49 05/03/24 03:31 Test 05/03/24 03:31 Range/Units Serum Glucose 149 H 74-106 mg/dL Problems(with codes): (1) History of HIV or AIDS (2) Severe anemia (3) Diarrhea (4) Generalized weakness (5) Pneumocystis jiroveci pneumonia Prognosis Plan Stents stool for electrolytes and osmolality Await stool for cryptosporidiosis Lomotil one tablet p.o. q.6 hours standing order and not as needed Continue Questran 4 g packet p.o. twice a day Continue supportive care Diet as tolerated Dietary Evaluation Review Comments: 1) Consider another anti-diarrheal 2) Continue to promote optimal PO intake 3) F/u with immunology 4) Continue to monitor I&O, labs, and skin integrity Expected Outcomes/Goals: 1) appetite and labs to improve 2) f/u in 3-5 days Plan discussed with: Patient, Other (ICU Nurse) CC Plasma Assessment Blood Product Administration S: [id number] JAMESON KIM MD May 03, 2024 22:02
--- NOTE | 2024-05-03 22:49 | DVHPNRES ---
Progress Note Date Seen: May 03, 2024 Resident Creating Document: ANIBAL BRUNERANN RESIDENT Has the PT tested + for MRSA If YES, has PT been informed?: No Medical Necessity Reason Pt with a Central, PICC or Fol: Yes The following are medically ne: PICC Line, Díaz Catheter Reason for díaz catheter: Strict I&O Subjective Review of Systems Patient seen and examined at bedside In the morning patient was alert and oriented X 4 Overnight 1L of fluid was given lactic acid trended down During the day patient had 4 large bowel movements. 1L LR was given during the day and repeat lactic acid increased. Patient did complain of pain in her anal region and generalised weakness and malaise Objective vital signs Vital Sign Date Time Temp Pulse Resp B/P (MAP) Pulse Ox O2 Delivery O2 Flow Rate FiO2 05/03/24 20:30 106 26 88/59 (69) 96 05/03/24 20:00 Room Air* 0 21 05/03/24 20:00 97.5 97.5 Total Intake and Output 05/02/24 05/02/24 05/03/24 15:00 23:00 07:00 Intake Total 1974.00 ml 78.75 ml 1540.00 ml Output Total 4200 ml 950 ml Balance -2226.00 ml 78.75 ml 590.00 ml medications Current Medications Medications Dose Ordered Sig/Era Route Start Time Stop Time Status Last Admin Dose Admin Acetaminophen 650 mg Q6HP PRN PO 04/25/24 22:15 05/03/24 13:11 650 MG Ondansetron HCl 4 mg Q4HP PRN IV 04/25/24 22:15 05/02/24 12:43 4 MG Trimethoprim/ Sulfamethoxazole 2 tab Q8HR PO 04/26/24 06:00 UNV Patient Own Medication 1 cap QID PO 04/26/24 06:00 UNV Patient Own Medication 1 cap TID PO 04/26/24 06:00 UNV Patient Own Medication 1 tab DAILY PO 04/26/24 10:00 UNV Patient Own Medication 100 mg Q4HR PO 04/26/24 02:00 Hold Prenat Multivit/ Adjustment Supervisor/Iron/Folic Ac 1 DAILY PO 04/26/24 10:00 05/03/24 08:40 1 Trimethoprim/ Sulfamethoxazole 10 ml/Dextrose 260 ml @ 173.333 mls/hr DAILY IV 04/26/24 10:00 05/03/24 08:21 173.333 MLS/HR Meropenem 50 ml @ 17 mls/hr Q8HR IV 04/26/24 14:00 05/03/24 20:21 17 MLS/HR Cholestyramine Resin 4 gm Q12HR@11,23 PO 04/27/24 23:00 05/03/24 08:40 4 GM Melatonin 5 mg HS PO 04/28/24 22:00 05/03/24 20:22 5 MG Levothyroxine Sodium 125 mcg QAM@0600 PO 04/29/24 06:00 05/03/24 05:27 125 MCG Patient Own Medication 1 DAILY PO 04/29/24 10:00 05/03/24 08:42 1 Enteral Nutritional Formula 240 ml TIDWM PO 04/29/24 08:00 05/03/24 17:39 240 ML Calcium/Vitamin D 1 tab BIDWM PO 04/29/24 08:00 05/03/24 17:40 1 TAB Ethambutol HCl 1,200 mg DAILY PO 04/29/24 10:00 05/03/24 08:41 1,200 MG Pantoprazole Sodium 40 mg DAILY@0600 PO 04/29/24 06:00 05/03/24 05:27 40 MG Potassium Chloride 20 meq DAILY PO 05/01/24 10:00 05/03/24 08:41 20 MEQ Norepinephrine Bitartrate 250 ml @ 3.75 mls/hr Q24H IV 05/01/24 09:15 UNV Norepinephrine Bitartrate 250 ml @ 3.75 mls/hr Q24H IV 05/01/24 10:00 05/03/24 00:07 7.5 MLS/HR Sodium Chloride 10 ml QSHIFT@10,22 IV 05/01/24 22:00 05/03/24 20:22 10 ML Guaifenesin/ Dextromethorphan 10 ml Q6HPRN PRN PO 05/01/24 21:45 05/02/24 05:15 10 ML Azithromycin 250 ml @ 125 mls/hr Q24H IV 05/02/24 11:00 05/03/24 08:21 125 MLS/HR Micafungin Sodium 100 mg/Sodium Chloride 100 ml @ 100 mls/hr Q24H IV 05/02/24 12:00 Cancel Amikacin Sulfate 0 ml @ 0 mls/hr PER PHARMACY IV 05/02/24 08:15 Hydrocortisone Sodium Succinate 50 mg Q6H IV 05/02/24 15:00 05/03/24 20:22 50 MG Saccharomyces Boulardii 250 mg DAILY PO 05/03/24 10:00 05/03/24 08:40 250 MG Olanzapine 5 mg DAILY PO 05/03/24 10:00 05/03/24 08:40 5 MG Clonazepam 0.5 mg Q12HP PRN PO 05/03/24 00:30 05/03/24 14:50 0.5 MG Lactated Ringer's 1,000 ml @ 75 mls/hr [id number] IV 05/03/24 03:45 05/03/24 12:14 75 MLS/HR Amikacin Sulfate 1000 mg/Dextrose 104 ml @ 104 mls/hr DAILY@1000 IV 05/03/24 10:00 05/03/24 10:16 104 MLS/HR Acetaminophen/ Hydrocodone Bitart 1 tab Q6HP PRN PO 05/03/24 15:00 Morphine Sulfate 2 mg Q4HPRN PRN IV 05/03/24 15:00 Diphenoxylate HCl/ Atropine 2.5 mg Q6HP PO 05/03/24 21:00 05/03/24 20:22 2.5 MG Albumin Human 100 ml @ 100 mls/hr Q8H IV 05/03/24 20:45 05/04/24 13:44 05/03/24 21:43 100 MLS/HR Examination Constitutional: Patient was alert and oriented to time, place and person and does not appear to be in acute distress Gen - mild conjunctival pallor, no icterus, no cyanosis, no clubbing, no LAD, 2+ pitting edema in the bilateral lower extremities Skin - Patients skin is warm and dry.. HEENT - normocephalic, atraumatic, dry mucous membranes. Neck - full ROM, no LAD, no JVD seen Pulmonary - B/L equal breath sounds with a minimal basilar crackles, no wheezing, no stridor. cardiovascular - variable S1,S2 heard. no added sounds no murmurs heard. GI - soft abdomen without tenderness to palpation. no hepatospleenomegaly. Bowel sounds normoactive Neurological - Bilateral upper extremity strength 4/5, bilateral lower extremity strength 4/5, no facial droop, normal speech, no tremor, no sensory deficiets. laboratory and microbiology Laboratory Tests 05/03/24 07:49 05/03/24 03:31 Test 05/03/24 03:31 Range/Units Serum Glucose 149 H 74-106 mg/dL Microbiology Date/Time Source Procedure Growth Status 05/01/24 15:47 Blood Blood Culture - Preliminary NO GROWTH AFTER 48 HOURS OF INCUBATION. Resulted 04/27/24 01:08 Nose MRSA Screen - Final Complete 04/26/24 11:45 Stool Stool Culture - Final Complete 04/26/24 11:45 Stool Shiga Toxin I & II - Final Complete 04/25/24 17:30 Voided Urine Urine Culture - Final Complete Problem List/Assessment/Plan Problem List/Assessment/Plan Neurology - patient was mental status alert and oriented x 4 - GCS 15 [id number] Cardiovascular # septic shock likely due to AIDS # severe dehydration due to acute intractable diarrhea # lactic acidosis # pericardial effusion - currently on norepinephrine at 6 microgram/minute - goal MAP > 65mmhg - albumin 25 mg q.8 hour with Lasix 20 mg IV q.8 hours for diuresis given on 05/01/2024 - Over the past 24 hours patient had almost net zero balance - total of 2 L ringer lactate bolus given over the last 24 hrs - echo done but report is pending. On the imaging is some pericardial effusion. ESR WNL. 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 daily - Lomotil and loperamide for diarrhea - infectious disease consulted and recommended amikacin GI # Intractable diarrhoea # Possible cryptosporidium gastroenteritis # Possible HIV induced Hepatic steatosis - cryptosporidium antigen pending - Lomotil q6hrs - loperamide 2mg given - monitoring CMP and CBC Endocrine # hypothyroidism # hypoparathyroidism # pericardial effusion maybe possible due to hypothyroidism # inadequate adrenal response - TSH elevated at 20.72 with a low free T4 and borderline low total T3 - patient was started on 125 mcg levothyroxine q.a.m. - low PTH level - calculated serum calcium > 8 mg/dL - a.m. serum cortisol 14.45 which is within normal limits but as the patient is in significant distress and septic shock cortisol should be higher and we suspected inadequate adrenal response - hydrocortisone 50 mg IV q.6 hours Hematology # leukocytopenia with neutropenia # normocytic normochromic anemia with a low reticulocyte index # ? Bone marrow suppression due to AIDS # coagulopathy with elevated PT INR # Thrombocytopenia - stool occult blood positive - monitoring H&H - patient was received total of 3 PRBCs since in the hospital Electrolyte imbalance # Hypokalemia # Hypomagnesemia # hypophosphatemia - replenished DVT prophylaxis: SCDs PUD prophylaxis: protonix Goals of care discussed with the patient for 35 minutes. Code status: Full code Case discussed with Dr Poon critical care time 40 minutes Plan discussed with: Patient My Orders My Orders Orders - GREGG BRUNER RESIDENT Procedure Category Date Status Time Pt Request For Service PT 05/03/24 Logged 08:40 Send Out LAB 05/03/24 Logged Miscellaneous Lab Ref 13:27 Hydrocodone-Acet PHA 05/03/24 In Process 7.5/325mg Tab ([place] 15:00 Morphine Sulfate PHA 05/03/24 In Process Injection 15:00 Albumin 25% (Al[place]in) PHA 05/03/24 In Process 20:45 Dietary Evaluation Review Comments: 1) Consider another anti-diarrheal 2) Continue to promote optimal PO intake 3) F/u with immunology 4) Continue to monitor I&O, labs, and skin integrity Expected Outcomes/Goals: 1) appetite and labs to improve 2) f/u in 3-5 days CC Plasma Assessment Blood Product Administration S: [id number] Date of Service: May 03, 2024 Billing Provider: SHARON POON MD Common Visit Codes: [id number] CARE 30-74 MIN GREGG BRUNER RESIDENT May 03, 2024 22:49 SHARON POON MD May 04, 2024 11:00
[2024-05-04] VITALS (53 sets, daily range): BP systolic 85–112; BP diastolic 46–74; PULSE 94–121; RESP 15–31; TEMP 36.4; O2SAT 90–100
--- NOTE | 2024-05-04 00:09 | DVHPN2 ---
Consult Progress Note Date Seen: May 02, 2024 Subjective Patient reports: Other (appears to have fewer bowel movements today , coming down on levofed , tachycardia is somewhat improving but still fast heart rate, appears to be a little bit more hydrated ) Objective vital signs Vital Sign Date Time Temp Pulse Resp B/P (MAP) Pulse Ox O2 Delivery O2 Flow Rate FiO2 05/03/24 22:30 108 27 98/53 (68) 97 05/03/24 22:00 Room Air* 0 21 05/03/24 20:00 97.5 97.5 Total Intake and Output 05/03/24 05/03/24 05/04/24 15:00 23:00 07:00 Intake Total 1321.50 ml 2025 ml Output Total 650 ml Balance 1321.50 ml 1375 ml medications Current Medications Medications Dose Ordered Sig/Era Route Start Time Stop Time Status Last Admin Dose Admin Acetaminophen 650 mg Q6HP PRN PO 04/25/24 22:15 05/03/24 13:11 650 MG Ondansetron HCl 4 mg Q4HP PRN IV 04/25/24 22:15 05/02/24 12:43 4 MG Trimethoprim/ Sulfamethoxazole 2 tab Q8HR PO 04/26/24 06:00 UNV Patient Own Medication 1 cap QID PO 04/26/24 06:00 UNV Patient Own Medication 1 cap TID PO 04/26/24 06:00 UNV Patient Own Medication 1 tab DAILY PO 04/26/24 10:00 UNV Patient Own Medication 100 mg Q4HR PO 04/26/24 02:00 Hold Prenat Multivit/ Foundation Stage Teacher/Iron/Folic Ac 1 DAILY PO 04/26/24 10:00 05/03/24 08:40 1 Trimethoprim/ Sulfamethoxazole 10 ml/Dextrose 260 ml @ 173.333 mls/hr DAILY IV 04/26/24 10:00 05/03/24 08:21 173.333 MLS/HR Meropenem 50 ml @ 17 mls/hr Q8HR IV 04/26/24 14:00 05/03/24 20:21 17 MLS/HR Cholestyramine Resin 4 gm Q12HR@11,23 PO 04/27/24 23:00 05/03/24 23:23 4 GM Melatonin 5 mg HS PO 04/28/24 22:00 05/03/24 20:22 5 MG Levothyroxine Sodium 125 mcg QAM@0600 PO 04/29/24 06:00 05/03/24 05:27 125 MCG Patient Own Medication 1 DAILY PO 04/29/24 10:00 05/03/24 08:42 1 Enteral Nutritional Formula 240 ml TIDWM PO 04/29/24 08:00 05/03/24 17:39 240 ML Calcium/Vitamin D 1 tab BIDWM PO 04/29/24 08:00 05/03/24 17:40 1 TAB Ethambutol HCl 1,200 mg DAILY PO 04/29/24 10:00 05/03/24 08:41 1,200 MG Pantoprazole Sodium 40 mg DAILY@0600 PO 04/29/24 06:00 05/03/24 05:27 40 MG Potassium Chloride 20 meq DAILY PO 05/01/24 10:00 05/03/24 08:41 20 MEQ Norepinephrine Bitartrate 250 ml @ 3.75 mls/hr Q24H IV 05/01/24 09:15 UNV Norepinephrine Bitartrate 250 ml @ 3.75 mls/hr Q24H IV 05/01/24 10:00 05/03/24 00:07 7.5 MLS/HR Sodium Chloride 10 ml QSHIFT@10,22 IV 05/01/24 22:00 05/03/24 20:22 10 ML Guaifenesin/ Dextromethorphan 10 ml Q6HPRN PRN PO 05/01/24 21:45 05/02/24 05:15 10 ML Azithromycin 250 ml @ 125 mls/hr Q24H IV 05/02/24 11:00 05/03/24 08:21 125 MLS/HR Micafungin Sodium 100 mg/Sodium Chloride 100 ml @ 100 mls/hr Q24H IV 05/02/24 12:00 Cancel Amikacin Sulfate 0 ml @ 0 mls/hr PER PHARMACY IV 05/02/24 08:15 Hydrocortisone Sodium Succinate 50 mg Q6H IV 05/02/24 15:00 05/03/24 20:22 50 MG Saccharomyces Boulardii 250 mg DAILY PO 05/03/24 10:00 05/03/24 08:40 250 MG Olanzapine 5 mg DAILY PO 05/03/24 10:00 05/03/24 08:40 5 MG Clonazepam 0.5 mg Q12HP PRN PO 05/03/24 00:30 05/03/24 14:50 0.5 MG Lactated Ringer's 1,000 ml @ 75 mls/hr [id number] IV 05/03/24 03:45 05/03/24 12:14 75 MLS/HR Amikacin Sulfate 1000 mg/Dextrose 104 ml @ 104 mls/hr DAILY@1000 IV 05/03/24 10:00 05/03/24 10:16 104 MLS/HR Acetaminophen/ Hydrocodone Bitart 1 tab Q6HP PRN PO 05/03/24 15:00 Morphine Sulfate 2 mg Q4HPRN PRN IV 05/03/24 15:00 Diphenoxylate HCl/ Atropine 2.5 mg Q6HP PO 05/03/24 21:00 05/03/24 23:23 2.5 MG Albumin Human 100 ml @ 100 mls/hr Q8H IV 05/03/24 20:45 05/04/24 13:44 05/03/24 21:43 100 MLS/HR Physical Exam: General: Lethargic, agitated, pale appearance. Neck: Supple. No masses. HEENT: PERRL. Normal lids and conjunctiva. Moist mucous membranes. Reports headaches. Heart: Tachycardic at 125 bpm, regular rhythm. No murmur. No lower extremity edema. Lungs: Normal respiratory effort. Clear to auscultation bilaterally. No wheezes. No crackles. Abdomen: Mildly distended. Non-tender. Hepatomegaly and splenomegaly palpable up to 5 cm below costal margin. No masses or abdominal hernia. Msk: No digital cyanosis. Normal strength and tone in all 4 limbs. Skin: Pale. Warm and dry, no rashes. Neuro: Alert but lethargic. No facial droop or slurred speech. Extra-ocular movements intact. Sensation intact to soft touch in all 4 limbs. Psych: Agitated mood. Full affect. Oriented to person, place, time, and situation. laboratory and microbiology Laboratory Tests 05/03/24 07:49 05/03/24 03:31 Test 05/03/24 03:31 Range/Units Serum Glucose 149 H 74-106 mg/dL Problem List/Assessment/Plan Problems(with codes): (1) Lab test negative for COVID-19 virus (2) Insect bite wound (3) Morbid obesity due to excess calories (4) (5) Multifocal pneumonia (6) Scabies exposure (7) Elevated liver enzymes (8) Severe protein-calorie malnutrition (9) HIV disease (10) Opportunistic infection Problem List/Assessment/Plan ID Problem List: HIV/AIDS - Non-compliance with antiretroviral therapy - 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 female with a past medical history of HIV/AIDS ( 2023: Absolute CD 4 [place] 22, % CD 4 Pos. Lymph. 3.1), untreated MAC, who presents with flu-like symptoms for the last 7 days, including green, watery diarrhea for the last 4 days. Her diarrhea is chronic and has acutely worsened to the point where she is requiring electrolyte repletion. She was diagnosed with MAC infection on July 31 and was started on ethambutol, Bactrim, and Biktarvy but has been non-compliant with her medications. Labs reveal severe anemia (Hgb 7.5), hyponatremia (Na 130), and urine drug screen positive for cannabinoids and amphetamines(in the past). CT abdomen/pelvis shows hepatosplenomegaly and numerous clusters of enlarged lymph nodes around the mesenteric root measuring up to 1.7 cm, as well as prominent lymph nodes in the pelvis and groin. From her last hospitalization, the following were positive. 04/29: Elevated lactates suggestive of ischemic collitis but is getting electrolytes repeated . recommend checking more broadly for MAC colitis and bacteremia 05/01:on a few mics of levofed and having signs of acidosis on labs likely related to elevated lactic acid thats worsening in setting of colitis 05/02: whitecount is improving to 2.1 , appears to be responding to addition of amikacin Plan: - get stool , ovum and paraasite x3 white awaiting for expanded aneritis to return - discuss with pharmacy team ganciclovir IV empirically if patients diarrhea does not improve - closely monitor renal function - recommend blood cultures as well - patient may require levofed to keep MAPs above 65 given patients lactic acid continues to be abnormal - provide sufficient fluid support during severe diarrhea illness - Continue ethanbutal, bactrum, Amikacin - Provide supportive care: - Transfuse PRBCs if hemoglobin <7 g/dL. - Pain management for abdominal pain. - Antipyretics for fevers. - Further diagnostics: - Obtain Quantiferon-TB Gold test.--> negative - Send stool cultures, ova and parasites, and C. difficile testing. - Screen for CMV antibodies due to diarrhea.--> positive for exposure, would check CMV DNA levels. - Check Cryptococcus antigen.--> negative - Obtain AFB cultures from blood, stool, and sputum. - Screen for toxoplasma antigen.--> negative - Screen for syphilis, gonorrhea, chlamydia.-->negative - Check hepatitis B core IgM antibody.-->negative - Monitor patient closely. - Consider starting prednisone after ruling out cryptococcal infection. Antibiotics: - continue Biktarvy - continue Azithromycin, ethambutol. start Amikacin for broader MAC therapy - continue Bactrim PJP prophylaxis so long as patient can tolerate - continue Meropenem for infectious colitis - recommended expanded viral and parasitic enteric pcr panel send out. Isolation Precautions: Standard Authorized and Performed by: Beverly Garcia Total critical care time: Approximately 76 minutes Due to a high probability of clinically significant, life threatening deterioration, the patient required my highest level of preparedness to intervene emergently and I personally spent this critical care time directly and personally managing the patient. This critical care time included obtaining a history; examining the patient; pulse oximetry; ordering and review of studies; arranging urgent treatment with development of a management plan; evaluation of patient's response to treatment; frequent reassessment; and, discussions with other providers. This critical care time was performed to assess and manage the high probability of imminent, life-threatening deterioration that could result in multi-organ failure. It was exclusive of separately billable procedures and treating other patients and teaching time. Plan discussed with: Other Dietary Evaluation Review Comments: 1) Consider another anti-diarrheal 2) Continue to promote optimal PO intake 3) F/u with immunology 4) Continue to monitor I&O, labs, and skin integrity Expected Outcomes/Goals: 1) appetite and labs to improve 2) f/u in 3-5 days CC Plasma Assessment Blood Product Administration S: [id number] BEVERLY GARCIA MD May 04, 2024 00:09
--- NOTE | 2024-05-04 00:09 | DVHPN2 ---
Consult Progress Note Date Seen: Apr 30, 2024 Subjective Patient reports: Other (continues to have severe diarrhea with ongoing signs of dehydration and fatigue , over 7 bowel movements , BP are continuing to be soft with MAPs as low as 58 , some mucus output ) Objective vital signs Vital Sign Date Time Temp Pulse Resp B/P (MAP) Pulse Ox O2 Delivery O2 Flow Rate FiO2 05/03/24 22:30 108 27 98/53 (68) 97 05/03/24 22:00 Room Air* 0 21 05/03/24 20:00 97.5 97.5 Total Intake and Output 05/03/24 05/03/24 05/04/24 15:00 23:00 07:00 Intake Total 1321.50 ml 2025 ml Output Total 650 ml Balance 1321.50 ml 1375 ml medications Current Medications Medications Dose Ordered Sig/Era Route Start Time Stop Time Status Last Admin Dose Admin Acetaminophen 650 mg Q6HP PRN PO 04/25/24 22:15 05/03/24 13:11 650 MG Ondansetron HCl 4 mg Q4HP PRN IV 04/25/24 22:15 05/02/24 12:43 4 MG Trimethoprim/ Sulfamethoxazole 2 tab Q8HR PO 04/26/24 06:00 UNV Patient Own Medication 1 cap QID PO 04/26/24 06:00 UNV Patient Own Medication 1 cap TID PO 04/26/24 06:00 UNV Patient Own Medication 1 tab DAILY PO 04/26/24 10:00 UNV Patient Own Medication 100 mg Q4HR PO 04/26/24 02:00 Hold Prenat Multivit/ [place]/Iron/Folic Ac 1 DAILY PO 04/26/24 10:00 05/03/24 08:40 1 Trimethoprim/ Sulfamethoxazole 10 ml/Dextrose 260 ml @ 173.333 mls/hr DAILY IV 04/26/24 10:00 05/03/24 08:21 173.333 MLS/HR Meropenem 50 ml @ 17 mls/hr Q8HR IV 04/26/24 14:00 05/03/24 20:21 17 MLS/HR Cholestyramine Resin 4 gm Q12HR@11,23 PO 04/27/24 23:00 05/03/24 23:23 4 GM Melatonin 5 mg HS PO 04/28/24 22:00 05/03/24 20:22 5 MG Levothyroxine Sodium 125 mcg QAM@0600 PO 04/29/24 06:00 05/03/24 05:27 125 MCG Patient Own Medication 1 DAILY PO 04/29/24 10:00 05/03/24 08:42 1 Enteral Nutritional Formula 240 ml TIDWM PO 04/29/24 08:00 05/03/24 17:39 240 ML Calcium/Vitamin D 1 tab BIDWM PO 04/29/24 08:00 05/03/24 17:40 1 TAB Ethambutol HCl 1,200 mg DAILY PO 04/29/24 10:00 05/03/24 08:41 1,200 MG Pantoprazole Sodium 40 mg DAILY@0600 PO 04/29/24 06:00 05/03/24 05:27 40 MG Potassium Chloride 20 meq DAILY PO 05/01/24 10:00 05/03/24 08:41 20 MEQ Norepinephrine Bitartrate 250 ml @ 3.75 mls/hr Q24H IV 05/01/24 09:15 UNV Norepinephrine Bitartrate 250 ml @ 3.75 mls/hr Q24H IV 05/01/24 10:00 05/03/24 00:07 7.5 MLS/HR Sodium Chloride 10 ml QSHIFT@10,22 IV 05/01/24 22:00 05/03/24 20:22 10 ML Guaifenesin/ Dextromethorphan 10 ml Q6HPRN PRN PO 05/01/24 21:45 05/02/24 05:15 10 ML Azithromycin 250 ml @ 125 mls/hr Q24H IV 05/02/24 11:00 05/03/24 08:21 125 MLS/HR Micafungin Sodium 100 mg/Sodium Chloride 100 ml @ 100 mls/hr Q24H IV 05/02/24 12:00 Cancel Amikacin Sulfate 0 ml @ 0 mls/hr PER PHARMACY IV 05/02/24 08:15 Hydrocortisone Sodium Succinate 50 mg Q6H IV 05/02/24 15:00 05/03/24 20:22 50 MG Saccharomyces Boulardii 250 mg DAILY PO 05/03/24 10:00 05/03/24 08:40 250 MG Olanzapine 5 mg DAILY PO 05/03/24 10:00 05/03/24 08:40 5 MG Clonazepam 0.5 mg Q12HP PRN PO 05/03/24 00:30 05/03/24 14:50 0.5 MG Lactated Ringer's 1,000 ml @ 75 mls/hr [id number] IV 05/03/24 03:45 05/03/24 12:14 75 MLS/HR Amikacin Sulfate 1000 mg/Dextrose 104 ml @ 104 mls/hr DAILY@1000 IV 05/03/24 10:00 05/03/24 10:16 104 MLS/HR Acetaminophen/ Hydrocodone Bitart 1 tab Q6HP PRN PO 05/03/24 15:00 Morphine Sulfate 2 mg Q4HPRN PRN IV 05/03/24 15:00 Diphenoxylate HCl/ Atropine 2.5 mg Q6HP PO 05/03/24 21:00 05/03/24 23:23 2.5 MG Albumin Human 100 ml @ 100 mls/hr Q8H IV 05/03/24 20:45 05/04/24 13:44 05/03/24 21:43 100 MLS/HR Physical Exam: General: Lethargic, agitated, pale appearance. Neck: Supple. No masses. HEENT: PERRL. Normal lids and conjunctiva. Moist mucous membranes. Reports headaches. Heart: Tachycardic at 125 bpm, regular rhythm. No murmur. No lower extremity edema. Lungs: Normal respiratory effort. Clear to auscultation bilaterally. No wheezes. No crackles. Abdomen: Mildly distended. Non-tender. Hepatomegaly and splenomegaly palpable up to 5 cm below costal margin. No masses or abdominal hernia. Msk: No digital cyanosis. Normal strength and tone in all 4 limbs. Skin: Pale. Warm and dry, no rashes. Neuro: Alert but lethargic. No facial droop or slurred speech. Extra-ocular movements intact. Sensation intact to soft touch in all 4 limbs. Psych: Agitated mood. Full affect. Oriented to person, place, time, and situation. laboratory and microbiology Laboratory Tests 05/03/24 07:49 05/03/24 03:31 Test 05/03/24 03:31 Range/Units Serum Glucose 149 H 74-106 mg/dL Problem List/Assessment/Plan Problems(with codes): (1) Lab test negative for COVID-19 virus (2) Insect bite wound (3) Morbid obesity due to excess calories (4) (5) Multifocal pneumonia (6) Scabies exposure (7) Elevated liver enzymes (8) Severe protein-calorie malnutrition (9) HIV disease (10) Opportunistic infection (11) Pneumocystis jiroveci pneumonia (12) History of HIV or AIDS (13) Severe anemia (14) Diarrhea (15) Generalized weakness Problem List/Assessment/Plan ID Problem List: HIV/AIDS - Non-compliance with antiretroviral therapy - 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 female with a past medical history of HIV/AIDS ( 2023: Absolute CD 4 [place] 22, % CD 4 Pos. Lymph. 3.1), untreated MAC, who presents with flu-like symptoms for the last 7 days, including green, watery diarrhea for the last 4 days. Her diarrhea is chronic and has acutely worsened to the point where she is requiring electrolyte repletion. She was diagnosed with MAC infection on July 31 and was started on ethambutol, Bactrim, and Biktarvy but has been non-compliant with her medications. Labs reveal severe anemia (Hgb 7.5), hyponatremia (Na 130), and urine drug screen positive for cannabinoids and amphetamines(in the past). CT abdomen/pelvis shows hepatosplenomegaly and numerous clusters of enlarged lymph nodes around the mesenteric root measuring up to 1.7 cm, as well as prominent lymph nodes in the pelvis and groin. From her last hospitalization, the following were positive. 04/29: Elevated lactates suggestive of ischemic colitis but is getting electrolytes repeated . recommend checking more broadly for MAC colitis and bacteremia 04/30: Patient had a low viral load of 90 , quantification HIV of 90 making this less likely to be HIV enteritis Plan: - recommend blood cultures as well - patient may require levofed to keep MAPs above 65 given patients lactic acid continues to be abnormal - provide sufficient fluid support during severe diarrhea illness - Start Amikacin - Provide supportive care: - Transfuse PRBCs if hemoglobin <7 g/dL. - Pain management for abdominal pain. - Antipyretics for fevers. - Further diagnostics: - Obtain Quantiferon-TB Gold test.--> negative - Send stool cultures, ova and parasites, and C. difficile testing. - Screen for CMV antibodies due to diarrhea.--> positive for exposure, would check CMV DNA levels. - Check Cryptococcus antigen.--> negative - Obtain AFB cultures from blood, stool, and sputum. - Screen for toxoplasma antigen.--> negative - Screen for syphilis, gonorrhea, chlamydia.-->negative - Check hepatitis B core IgM antibody.-->negative - Monitor patient closely. - Consider starting prednisone after ruling out cryptococcal infection. Antibiotics: - continue Biktarvy - continue Azithromycin, ethambutol. start Amikacin for broader MAC therapy - continue Bactrim PJP prophylaxis so long as patient can tolerate - continue Meropenem for infectious colitis - recommended expanded viral and parasitic enteric pcr panel send out. Isolation Precautions: Standard Plan discussed with: Other Dietary Evaluation Review Comments: 1) Consider another anti-diarrheal 2) Continue to promote optimal PO intake 3) F/u with immunology 4) Continue to monitor I&O, labs, and skin integrity Expected Outcomes/Goals: 1) appetite and labs to improve 2) f/u in 3-5 days CC Plasma Assessment Blood Product Administration S: [id number] BEVERLY HARDY MD May 04, 2024 00:09
--- NOTE | 2024-05-04 00:09 | DVHPN2 ---
Consult Progress Note Date Seen: May 03, 2024 Subjective Patient reports: Other (reports only having 3 bowel movements overnight and has significantly improved , electrolytes are stable , mentating well , has mild tachycardia , on lactated ringers) Objective vital signs Vital Sign Date Time Temp Pulse Resp B/P (MAP) Pulse Ox O2 Delivery O2 Flow Rate FiO2 05/03/24 22:30 108 27 98/53 (68) 97 05/03/24 22:00 Room Air* 0 21 05/03/24 20:00 97.5 97.5 Total Intake and Output 05/03/24 05/03/24 05/04/24 15:00 23:00 07:00 Intake Total 1321.50 ml 2025 ml Output Total 650 ml Balance 1321.50 ml 1375 ml medications Current Medications Medications Dose Ordered Sig/Ear Route Start Time Stop Time Status Last Admin Dose Admin Acetaminophen 650 mg Q6HP PRN PO 04/25/24 22:15 05/03/24 13:11 650 MG Ondansetron HCl 4 mg Q4HP PRN IV 04/25/24 22:15 05/02/24 12:43 4 MG Trimethoprim/ Sulfamethoxazole 2 tab Q8HR PO 04/26/24 06:00 UNV Patient Own Medication 1 cap QID PO 04/26/24 06:00 UNV Patient Own Medication 1 cap TID PO 04/26/24 06:00 UNV Patient Own Medication 1 tab DAILY PO 04/26/24 10:00 UNV Patient Own Medication 100 mg Q4HR PO 04/26/24 02:00 Hold Prenat Multivit/ [place]/Iron/Folic Ac 1 DAILY PO 04/26/24 10:00 05/03/24 08:40 1 Trimethoprim/ Sulfamethoxazole 10 ml/Dextrose 260 ml @ 173.333 mls/hr DAILY IV 04/26/24 10:00 05/03/24 08:21 173.333 MLS/HR Meropenem 50 ml @ 17 mls/hr Q8HR IV 04/26/24 14:00 05/03/24 20:21 17 MLS/HR Cholestyramine Resin 4 gm Q12HR@11,23 PO 04/27/24 23:00 05/03/24 23:23 4 GM Melatonin 5 mg HS PO 04/28/24 22:00 05/03/24 20:22 5 MG Levothyroxine Sodium 125 mcg QAM@0600 PO 04/29/24 06:00 05/03/24 05:27 125 MCG Patient Own Medication 1 DAILY PO 04/29/24 10:00 05/03/24 08:42 1 Enteral Nutritional Formula 240 ml TIDWM PO 04/29/24 08:00 05/03/24 17:39 240 ML Calcium/Vitamin D 1 tab BIDWM PO 04/29/24 08:00 05/03/24 17:40 1 TAB Ethambutol HCl 1,200 mg DAILY PO 04/29/24 10:00 05/03/24 08:41 1,200 MG Pantoprazole Sodium 40 mg DAILY@0600 PO 04/29/24 06:00 05/03/24 05:27 40 MG Potassium Chloride 20 meq DAILY PO 05/01/24 10:00 05/03/24 08:41 20 MEQ Norepinephrine Bitartrate 250 ml @ 3.75 mls/hr Q24H IV 05/01/24 09:15 UNV Norepinephrine Bitartrate 250 ml @ 3.75 mls/hr Q24H IV 05/01/24 10:00 05/03/24 00:07 7.5 MLS/HR Sodium Chloride 10 ml QSHIFT@10,22 IV 05/01/24 22:00 05/03/24 20:22 10 ML Guaifenesin/ Dextromethorphan 10 ml Q6HPRN PRN PO 05/01/24 21:45 05/02/24 05:15 10 ML Azithromycin 250 ml @ 125 mls/hr Q24H IV 05/02/24 11:00 05/03/24 08:21 125 MLS/HR Micafungin Sodium 100 mg/Sodium Chloride 100 ml @ 100 mls/hr Q24H IV 05/02/24 12:00 Cancel Amikacin Sulfate 0 ml @ 0 mls/hr PER PHARMACY IV 05/02/24 08:15 Hydrocortisone Sodium Succinate 50 mg Q6H IV 05/02/24 15:00 05/03/24 20:22 50 MG Saccharomyces Boulardii 250 mg DAILY PO 05/03/24 10:00 05/03/24 08:40 250 MG Olanzapine 5 mg DAILY PO 05/03/24 10:00 05/03/24 08:40 5 MG Clonazepam 0.5 mg Q12HP PRN PO 05/03/24 00:30 05/03/24 14:50 0.5 MG Lactated Ringer's 1,000 ml @ 75 mls/hr [id number] IV 05/03/24 03:45 05/03/24 12:14 75 MLS/HR Amikacin Sulfate 1000 mg/Dextrose 104 ml @ 104 mls/hr DAILY@1000 IV 05/03/24 10:00 05/03/24 10:16 104 MLS/HR Acetaminophen/ Hydrocodone Bitart 1 tab Q6HP PRN PO 05/03/24 15:00 Morphine Sulfate 2 mg Q4HPRN PRN IV 05/03/24 15:00 Diphenoxylate HCl/ Atropine 2.5 mg Q6HP PO 05/03/24 21:00 05/03/24 23:23 2.5 MG Albumin Human 100 ml @ 100 mls/hr Q8H IV 05/03/24 20:45 05/04/24 13:44 05/03/24 21:43 100 MLS/HR Physical Exam: General: Lethargic, agitated, pale appearance. Neck: Supple. No masses. HEENT: PERRL. Normal lids and conjunctiva. Moist mucous membranes. Reports headaches. Heart: Tachycardic at 125 bpm, regular rhythm. No murmur. No lower extremity edema. Lungs: Normal respiratory effort. Clear to auscultation bilaterally. No wheezes. No crackles. Abdomen: Mildly distended. Non-tender. Hepatomegaly and splenomegaly palpable up to 5 cm below costal margin. No masses or abdominal hernia. Msk: No digital cyanosis. Normal strength and tone in all 4 limbs. Skin: Pale. Warm and dry, no rashes. Neuro: Alert but lethargic. No facial droop or slurred speech. Extra-ocular movements intact. Sensation intact to soft touch in all 4 limbs. Psych: Agitated mood. Full affect. Oriented to person, place, time, and situation. laboratory and microbiology Laboratory Tests 05/03/24 07:49 05/03/24 03:31 Test 05/03/24 03:31 Range/Units Serum Glucose 149 H 74-106 mg/dL Problem List/Assessment/Plan Problems(with codes): (1) Lab test negative for COVID-19 virus (2) Insect bite wound (3) Morbid obesity due to excess calories (4) (5) Multifocal pneumonia (6) Scabies exposure (7) Elevated liver enzymes (8) Severe protein-calorie malnutrition (9) HIV disease (10) Opportunistic infection (11) Pneumocystis jiroveci pneumonia (12) History of HIV or AIDS Problem List/Assessment/Plan ID Problem List: HIV/AIDS - Non-compliance with antiretroviral therapy - 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 female with a past medical history of HIV/AIDS ( 2023: Absolute CD 4 [place] 22, % CD 4 Pos. Lymph. 3.1), untreated MAC, who presents with flu-like symptoms for the last 7 days, including green, watery diarrhea for the last 4 days. Her diarrhea is chronic and has acutely worsened to the point where she is requiring electrolyte repletion. She was diagnosed with MAC infection on July 31 and was started on ethambutol, Bactrim, and Biktarvy but has been non-compliant with her medications. Labs reveal severe anemia (Hgb 7.5), hyponatremia (Na 130), and urine drug screen positive for cannabinoids and amphetamines(in the past). CT abdomen/pelvis shows hepatosplenomegaly and numerous clusters of enlarged lymph nodes around the mesenteric root measuring up to 1.7 cm, as well as prominent lymph nodes in the pelvis and groin. From her last hospitalization, the following were positive. 04/29: Elevated lactates suggestive of ischemic collitis but is getting electrolytes repeated . recommend checking more broadly for MAC colitis and bacteremia 05/01:on a few mics of levofed and having signs of acidosis on labs likely related to elevated lactic acid thats worsening in setting of colitis 05/02: whitecount is improving to 2.1 , appears to be responding to addition of amikacin 05/03:considering how long it would take to provide ganciclovir empiric therapy for CMV colitis as well as other potential treatments if patient has opportunistic infectious causing colitis that may not be currently covered would like to consider patient for higher level of care. patient is currently off pressures Plan: - consider patient for higher level of care for septic shock , intractable diarrhea from opportunistic infection in setting of advanced HIV - get stool , ovum and parasite x3 white awaiting for expanded aneritis to return - discuss with pharmacy team ganciclovir IV empirically if patients diarrhea does not improve - closely monitor renal function - STOP Bactrum to avoid renal dysfunction , low suspicion this would provide any additional coverage for colitis - STOp loperamide and Lomatol for diarrhea as unlikely to be helpful in setting of infectious diarrhea - recommend blood cultures as well - patient may require levofed to keep MAPs above 65 given patients lactic acid continues to be abnormal - provide sufficient fluid support during severe diarrhea illness - Continue ethanbutal, Amikacin - Provide supportive care: - Transfuse PRBCs if hemoglobin <7 g/dL. - Pain management for abdominal pain. - Antipyretics for fevers. - Further diagnostics: - Obtain Quantiferon-TB Gold test.--> negative - Send stool cultures, ova and parasites, and C. difficile testing. - Screen for CMV antibodies due to diarrhea.--> positive for exposure, would check CMV DNA levels. - Check Cryptococcus antigen.--> negative - Obtain AFB cultures from blood, stool, and sputum. - Screen for toxoplasma antigen.--> negative - Screen for syphilis, gonorrhea, chlamydia.-->negative - Check hepatitis B core IgM antibody.-->negative - Monitor patient closely. - Consider starting prednisone after ruling out cryptococcal infection. Antibiotics: - continue Biktarvy - continue Azithromycin, ethambutol. start Amikacin for broader MAC therapy - continue Bactrim PJP prophylaxis so long as patient can tolerate - continue Meropenem for infectious colitis - recommended expanded viral and parasitic enteric pcr panel send out. Isolation Precautions: Standard Authorized and Performed by: Beverly Garcia Total critical care time: Approximately 76 minutes Due to a high probability of clinically significant, life threatening deterioration, the patient required my highest level of preparedness to intervene emergently and I personally spent this critical care time directly and personally managing the patient. This critical care time included obtaining a history; examining the patient; pulse oximetry; ordering and review of studies; arranging urgent treatment with development of a management plan; evaluation of patient's response to treatment; frequent reassessment; and, discussions with other providers. This critical care time was performed to assess and manage the high probability of imminent, life-threatening deterioration that could result in multi-organ failure. It was exclusive of separately billable procedures and treating other patients and teaching time. Plan discussed with: Other Dietary Evaluation Review Comments: 1) Consider another anti-diarrheal 2) Continue to promote optimal PO intake 3) F/u with immunology 4) Continue to monitor I&O, labs, and skin integrity Expected Outcomes/Goals: 1) appetite and labs to improve 2) f/u in 3-5 days CC Plasma Assessment Blood Product Administration S: [id number] BEVERLY GARCIA MD May 04, 2024 00:09
--- NOTE | 2024-05-04 00:09 | DVHPN2 ---
Consult Progress Note Date Seen: Apr 29, 2024 Subjective Patient reports: Other (Continues to have severe diarrhea over 10 bowel movements daily that is watery, fatigue, dry mucus membranes , tachycardic , BP is soft ) Objective vital signs Vital Sign Date Time Temp Pulse Resp B/P (MAP) Pulse Ox O2 Delivery O2 Flow Rate FiO2 05/03/24 22:30 108 27 98/53 (68) 97 05/03/24 22:00 Room Air* 0 21 05/03/24 20:00 97.5 97.5 Total Intake and Output 05/03/24 05/03/24 05/04/24 15:00 23:00 07:00 Intake Total 1321.50 ml 2025 ml Output Total 650 ml Balance 1321.50 ml 1375 ml medications Current Medications Medications Dose Ordered Sig/Era Route Start Time Stop Time Status Last Admin Dose Admin Acetaminophen 650 mg Q6HP PRN PO 04/25/24 22:15 05/03/24 13:11 650 MG Ondansetron HCl 4 mg Q4HP PRN IV 04/25/24 22:15 05/02/24 12:43 4 MG Trimethoprim/ Sulfamethoxazole 2 tab Q8HR PO 04/26/24 06:00 UNV Patient Own Medication 1 cap QID PO 04/26/24 06:00 UNV Patient Own Medication 1 cap TID PO 04/26/24 06:00 UNV Patient Own Medication 1 tab DAILY PO 04/26/24 10:00 UNV Patient Own Medication 100 mg Q4HR PO 04/26/24 02:00 Hold Prenat Multivit/ [place]/Iron/Folic Ac 1 DAILY PO 04/26/24 10:00 05/03/24 08:40 1 Trimethoprim/ Sulfamethoxazole 10 ml/Dextrose 260 ml @ 173.333 mls/hr DAILY IV 04/26/24 10:00 05/03/24 08:21 173.333 MLS/HR Meropenem 50 ml @ 17 mls/hr Q8HR IV 04/26/24 14:00 05/03/24 20:21 17 MLS/HR Cholestyramine Resin 4 gm Q12HR@11,23 PO 04/27/24 23:00 05/03/24 23:23 4 GM Melatonin 5 mg HS PO 04/28/24 22:00 05/03/24 20:22 5 MG Levothyroxine Sodium 125 mcg QAM@0600 PO 04/29/24 06:00 05/03/24 05:27 125 MCG Patient Own Medication 1 DAILY PO 04/29/24 10:00 05/03/24 08:42 1 Enteral Nutritional Formula 240 ml TIDWM PO 04/29/24 08:00 05/03/24 17:39 240 ML Calcium/Vitamin D 1 tab BIDWM PO 04/29/24 08:00 05/03/24 17:40 1 TAB Ethambutol HCl 1,200 mg DAILY PO 04/29/24 10:00 05/03/24 08:41 1,200 MG Pantoprazole Sodium 40 mg DAILY@0600 PO 04/29/24 06:00 05/03/24 05:27 40 MG Potassium Chloride 20 meq DAILY PO 05/01/24 10:00 05/03/24 08:41 20 MEQ Norepinephrine Bitartrate 250 ml @ 3.75 mls/hr Q24H IV 05/01/24 09:15 UNV Norepinephrine Bitartrate 250 ml @ 3.75 mls/hr Q24H IV 05/01/24 10:00 05/03/24 00:07 7.5 MLS/HR Sodium Chloride 10 ml QSHIFT@10,22 IV 05/01/24 22:00 05/03/24 20:22 10 ML Guaifenesin/ Dextromethorphan 10 ml Q6HPRN PRN PO 05/01/24 21:45 05/02/24 05:15 10 ML Azithromycin 250 ml @ 125 mls/hr Q24H IV 05/02/24 11:00 05/03/24 08:21 125 MLS/HR Micafungin Sodium 100 mg/Sodium Chloride 100 ml @ 100 mls/hr Q24H IV 05/02/24 12:00 Cancel Amikacin Sulfate 0 ml @ 0 mls/hr PER PHARMACY IV 05/02/24 08:15 Hydrocortisone Sodium Succinate 50 mg Q6H IV 05/02/24 15:00 05/03/24 20:22 50 MG Saccharomyces Boulardii 250 mg DAILY PO 05/03/24 10:00 05/03/24 08:40 250 MG Olanzapine 5 mg DAILY PO 05/03/24 10:00 05/03/24 08:40 5 MG Clonazepam 0.5 mg Q12HP PRN PO 05/03/24 00:30 05/03/24 14:50 0.5 MG Lactated Ringer's 1,000 ml @ 75 mls/hr [id number] IV 05/03/24 03:45 05/03/24 12:14 75 MLS/HR Amikacin Sulfate 1000 mg/Dextrose 104 ml @ 104 mls/hr DAILY@1000 IV 05/03/24 10:00 05/03/24 10:16 104 MLS/HR Acetaminophen/ Hydrocodone Bitart 1 tab Q6HP PRN PO 05/03/24 15:00 Morphine Sulfate 2 mg Q4HPRN PRN IV 05/03/24 15:00 Diphenoxylate HCl/ Atropine 2.5 mg Q6HP PO 05/03/24 21:00 05/03/24 23:23 2.5 MG Albumin Human 100 ml @ 100 mls/hr Q8H IV 05/03/24 20:45 05/04/24 13:44 05/03/24 21:43 100 MLS/HR Physical Exam: General: Lethargic, agitated, pale appearance. Neck: Supple. No masses. HEENT: PERRL. Normal lids and conjunctiva. Moist mucous membranes. Reports headaches. Heart: Tachycardic at 125 bpm, regular rhythm. No murmur. No lower extremity edema. Lungs: Normal respiratory effort. Clear to auscultation bilaterally. No wheezes. No crackles. Abdomen: Mildly distended. Non-tender. Hepatomegaly and splenomegaly palpable up to 5 cm below costal margin. No masses or abdominal hernia. Msk: No digital cyanosis. Normal strength and tone in all 4 limbs. Skin: Pale. Warm and dry, no rashes. Neuro: Alert but lethargic. No facial droop or slurred speech. Extra-ocular movements intact. Sensation intact to soft touch in all 4 limbs. Psych: Agitated mood. Full affect. Oriented to person, place, time, and situation. laboratory and microbiology Laboratory Tests 05/03/24 07:49 05/03/24 03:31 Test 05/03/24 03:31 Range/Units Serum Glucose 149 H 74-106 mg/dL Problem List/Assessment/Plan Problems(with codes): (1) Insect bite wound (2) (3) Morbid obesity due to excess calories (4) Lab test negative for COVID-19 virus (5) Generalized weakness (6) Diarrhea (7) Severe anemia (8) History of HIV or AIDS (9) Pneumocystis jiroveci pneumonia (10) HIV disease (11) Multifocal pneumonia (12) Scabies exposure (13) Elevated liver enzymes (14) Severe protein-calorie malnutrition Problem List/Assessment/Plan ID Problem List: HIV/AIDS - Non-compliance with antiretroviral therapy - 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 female with a past medical history of HIV/AIDS ( 2023: Absolute CD 4 [place] 22, % CD 4 Pos. Lymph. 3.1), untreated MAC, who presents with flu-like symptoms for the last 7 days, including green, watery diarrhea for the last 4 days. Her diarrhea is chronic and has acutely worsened to the point where she is requiring electrolyte repletion. She was diagnosed with MAC infection on July 31 and was started on ethambutol, Bactrim, and Biktarvy but has been non-compliant with her medications. Labs reveal severe anemia (Hgb 7.5), hyponatremia (Na 130), and urine drug screen positive for cannabinoids and amphetamines(in the past). CT abdomen/pelvis shows hepatosplenomegaly and numerous clusters of enlarged lymph nodes around the mesenteric root measuring up to 1.7 cm, as well as prominent lymph nodes in the pelvis and groin. From her last hospitalization, the following were positive. 04/29: Elevated lactates suggestive of ischemic collitis but is getting electrolytes repeated . recommend checking more broadly for MAC colitis and bacteremia Plan: - recommend blood cultures as well - patient may require levofed to keep MAPs above 65 given patients lactic acid continues to be abnormal - provide sufficient fluid support during severe diarrhea illness - Start Amikacin - Provide supportive care: - Transfuse PRBCs if hemoglobin <7 g/dL. - Pain management for abdominal pain. - Antipyretics for fevers. - Further diagnostics: - Obtain Quantiferon-TB Gold test.--> negative - Send stool cultures, ova and parasites, and C. difficile testing. - Screen for CMV antibodies due to diarrhea.--> positive for exposure, would check CMV DNA levels. - Check Cryptococcus antigen.--> negative - Obtain AFB cultures from blood, stool, and sputum. - Screen for toxoplasma antigen.--> negative - Screen for syphilis, gonorrhea, chlamydia.-->negative - Check hepatitis B core IgM antibody.-->negative - Monitor patient closely. - Consider starting prednisone after ruling out cryptococcal infection. Antibiotics: - continue Biktarvy - continue Azithromycin, ethambutol. start Amikacin for broader MAC therapy - continue Bactrim PJP prophylaxis so long as patient can tolerate - continue Meropenem for infectious colitis - recommended expanded viral and parasitic enteric pcr panel send out. Isolation Precautions: Standard Plan discussed with: Other Dietary Evaluation Review Comments: 1) Consider another anti-diarrheal 2) Continue to promote optimal PO intake 3) F/u with immunology 4) Continue to monitor I&O, labs, and skin integrity Expected Outcomes/Goals: 1) appetite and labs to improve 2) f/u in 3-5 days CC Plasma Assessment Blood Product Administration S: [id number] BEVERLY HARDY MD May 04, 2024 00:09
--- NOTE | 2024-05-04 00:09 | DVHPN2 ---
Consult Progress Note Date Seen: May 01, 2024 Subjective Patient reports: Other (continues to be lethargic , hypotensive , diarrhea is somewhat improved , was upgraded to the ICU and is tachycardic with hyperactive bowel sounds ) Objective vital signs Vital Sign Date Time Temp Pulse Resp B/P (MAP) Pulse Ox O2 Delivery O2 Flow Rate FiO2 05/03/24 22:30 108 27 98/53 (68) 97 05/03/24 22:00 Room Air* 0 21 05/03/24 20:00 97.5 97.5 Total Intake and Output 05/03/24 05/03/24 05/04/24 15:00 23:00 07:00 Intake Total 1321.50 ml 2025 ml Output Total 650 ml Balance 1321.50 ml 1375 ml medications Current Medications Medications Dose Ordered Sig/Era Route Start Time Stop Time Status Last Admin Dose Admin Acetaminophen 650 mg Q6HP PRN PO 04/25/24 22:15 05/03/24 13:11 650 MG Ondansetron HCl 4 mg Q4HP PRN IV 04/25/24 22:15 05/02/24 12:43 4 MG Trimethoprim/ Sulfamethoxazole 2 tab Q8HR PO 04/26/24 06:00 UNV Patient Own Medication 1 cap QID PO 04/26/24 06:00 UNV Patient Own Medication 1 cap TID PO 04/26/24 06:00 UNV Patient Own Medication 1 tab DAILY PO 04/26/24 10:00 UNV Patient Own Medication 100 mg Q4HR PO 04/26/24 02:00 Hold Prenat Multivit/ [place]/Iron/Folic Ac 1 DAILY PO 04/26/24 10:00 05/03/24 08:40 1 Trimethoprim/ Sulfamethoxazole 10 ml/Dextrose 260 ml @ 173.333 mls/hr DAILY IV 04/26/24 10:00 05/03/24 08:21 173.333 MLS/HR Meropenem 50 ml @ 17 mls/hr Q8HR IV 04/26/24 14:00 05/03/24 20:21 17 MLS/HR Cholestyramine Resin 4 gm Q12HR@11,23 PO 04/27/24 23:00 05/03/24 23:23 4 GM Melatonin 5 mg HS PO 04/28/24 22:00 05/03/24 20:22 5 MG Levothyroxine Sodium 125 mcg QAM@0600 PO 04/29/24 06:00 05/03/24 05:27 125 MCG Patient Own Medication 1 DAILY PO 04/29/24 10:00 05/03/24 08:42 1 Enteral Nutritional Formula 240 ml TIDWM PO 04/29/24 08:00 05/03/24 17:39 240 ML Calcium/Vitamin D 1 tab BIDWM PO 04/29/24 08:00 05/03/24 17:40 1 TAB Ethambutol HCl 1,200 mg DAILY PO 04/29/24 10:00 05/03/24 08:41 1,200 MG Pantoprazole Sodium 40 mg DAILY@0600 PO 04/29/24 06:00 05/03/24 05:27 40 MG Potassium Chloride 20 meq DAILY PO 05/01/24 10:00 05/03/24 08:41 20 MEQ Norepinephrine Bitartrate 250 ml @ 3.75 mls/hr Q24H IV 05/01/24 09:15 UNV Norepinephrine Bitartrate 250 ml @ 3.75 mls/hr Q24H IV 05/01/24 10:00 05/03/24 00:07 7.5 MLS/HR Sodium Chloride 10 ml QSHIFT@10,22 IV 05/01/24 22:00 05/03/24 20:22 10 ML Guaifenesin/ Dextromethorphan 10 ml Q6HPRN PRN PO 05/01/24 21:45 05/02/24 05:15 10 ML Azithromycin 250 ml @ 125 mls/hr Q24H IV 05/02/24 11:00 05/03/24 08:21 125 MLS/HR Micafungin Sodium 100 mg/Sodium Chloride 100 ml @ 100 mls/hr Q24H IV 05/02/24 12:00 Cancel Amikacin Sulfate 0 ml @ 0 mls/hr PER PHARMACY IV 05/02/24 08:15 Hydrocortisone Sodium Succinate 50 mg Q6H IV 05/02/24 15:00 05/03/24 20:22 50 MG Saccharomyces Boulardii 250 mg DAILY PO 05/03/24 10:00 05/03/24 08:40 250 MG Olanzapine 5 mg DAILY PO 05/03/24 10:00 05/03/24 08:40 5 MG Clonazepam 0.5 mg Q12HP PRN PO 05/03/24 00:30 05/03/24 14:50 0.5 MG Lactated Ringer's 1,000 ml @ 75 mls/hr [id number] IV 05/03/24 03:45 05/03/24 12:14 75 MLS/HR Amikacin Sulfate 1000 mg/Dextrose 104 ml @ 104 mls/hr DAILY@1000 IV 05/03/24 10:00 05/03/24 10:16 104 MLS/HR Acetaminophen/ Hydrocodone Bitart 1 tab Q6HP PRN PO 05/03/24 15:00 Morphine Sulfate 2 mg Q4HPRN PRN IV 05/03/24 15:00 Diphenoxylate HCl/ Atropine 2.5 mg Q6HP PO 05/03/24 21:00 05/03/24 23:23 2.5 MG Albumin Human 100 ml @ 100 mls/hr Q8H IV 05/03/24 20:45 05/04/24 13:44 05/03/24 21:43 100 MLS/HR Physical Exam: General: Lethargic, agitated, pale appearance. Neck: Supple. No masses. HEENT: PERRL. Normal lids and conjunctiva. Moist mucous membranes. Reports headaches. Heart: Tachycardic at 125 bpm, regular rhythm. No murmur. No lower extremity edema. Lungs: Normal respiratory effort. Clear to auscultation bilaterally. No wheezes. No crackles. Abdomen: Mildly distended. Non-tender. Hepatomegaly and splenomegaly palpable up to 5 cm below costal margin. No masses or abdominal hernia. Msk: No digital cyanosis. Normal strength and tone in all 4 limbs. Skin: Pale. Warm and dry, no rashes. Neuro: Alert but lethargic. No facial droop or slurred speech. Extra-ocular movements intact. Sensation intact to soft touch in all 4 limbs. Psych: Agitated mood. Full affect. Oriented to person, place, time, and situation. laboratory and microbiology Laboratory Tests 05/03/24 07:49 05/03/24 03:31 Test 05/03/24 03:31 Range/Units Serum Glucose 149 H 74-106 mg/dL Problem List/Assessment/Plan Problems(with codes): (1) Lab test negative for COVID-19 virus (2) Insect bite wound (3) Morbid obesity due to excess calories (4) (5) Multifocal pneumonia (6) Scabies exposure (7) Elevated liver enzymes (8) Severe protein-calorie malnutrition (9) Opportunistic infection (10) HIV disease Problem List/Assessment/Plan ID Problem List: HIV/AIDS - Non-compliance with antiretroviral therapy - 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 female with a past medical history of HIV/AIDS ( 2023: Absolute CD 4 [place] 22, % CD 4 Pos. Lymph. 3.1), untreated MAC, who presents with flu-like symptoms for the last 7 days, including green, watery diarrhea for the last 4 days. Her diarrhea is chronic and has acutely worsened to the point where she is requiring electrolyte repletion. She was diagnosed with MAC infection on July 31 and was started on ethambutol, Bactrim, and Biktarvy but has been non-compliant with her medications. Labs reveal severe anemia (Hgb 7.5), hyponatremia (Na 130), and urine drug screen positive for cannabinoids and amphetamines(in the past). CT abdomen/pelvis shows hepatosplenomegaly and numerous clusters of enlarged lymph nodes around the mesenteric root measuring up to 1.7 cm, as well as prominent lymph nodes in the pelvis and groin. From her last hospitalization, the following were positive. 04/29: Elevated lactates suggestive of ischemic collitis but is getting electrolytes repeated . recommend checking more broadly for MAC colitis and bacteremia 05/01:on a few mics of levofed and having signs of acidosis on labs likely related to elevated lactic acid thats worsening in setting of colitis Plan: - discuss with pharmacy team ganciclovir IV empirically if patients diarrhea does not improve - closely monitor renal function - recommend blood cultures as well - patient may require levofed to keep MAPs above 65 given patients lactic acid continues to be abnormal - provide sufficient fluid support during severe diarrhea illness - Continue ethanbutal, bactrum, Amikacin - Provide supportive care: - Transfuse PRBCs if hemoglobin <7 g/dL. - Pain management for abdominal pain. - Antipyretics for fevers. - Further diagnostics: - Obtain Quantiferon-TB Gold test.--> negative - Send stool cultures, ova and parasites, and C. difficile testing. - Screen for CMV antibodies due to diarrhea.--> positive for exposure, would check CMV DNA levels. - Check Cryptococcus antigen.--> negative - Obtain AFB cultures from blood, stool, and sputum. - Screen for toxoplasma antigen.--> negative - Screen for syphilis, gonorrhea, chlamydia.-->negative - Check hepatitis B core IgM antibody.-->negative - Monitor patient closely. - Consider starting prednisone after ruling out cryptococcal infection. Antibiotics: - continue Biktarvy - continue Azithromycin, ethambutol. start Amikacin for broader MAC therapy - continue Bactrim PJP prophylaxis so long as patient can tolerate - continue Meropenem for infectious colitis - recommended expanded viral and parasitic enteric pcr panel send out. Isolation Precautions: Standard Authorized and Performed by: Beverly Garcia Total critical care time: Approximately 76 minutes Due to a high probability of clinically significant, life threatening deterioration, the patient required my highest level of preparedness to intervene emergently and I personally spent this critical care time directly and personally managing the patient. This critical care time included obtaining a history; examining the patient; pulse oximetry; ordering and review of studies; arranging urgent treatment with development of a management plan; evaluation of patient's response to treatment; frequent reassessment; and, discussions with other providers. This critical care time was performed to assess and manage the high probability of imminent, life-threatening deterioration that could result in multi-organ failure. It was exclusive of separately billable procedures and treating other patients and teaching time. Plan discussed with: Other Dietary Evaluation Review Comments: 1) Consider another anti-diarrheal 2) Continue to promote optimal PO intake 3) F/u with immunology 4) Continue to monitor I&O, labs, and skin integrity Expected Outcomes/Goals: 1) appetite and labs to improve 2) f/u in 3-5 days CC Plasma Assessment Blood Product Administration S: [id number] BEVERLY GARCIA MD May 04, 2024 00:09
[2024-05-04] MEDS: HYDROcodone-ACET 7.5/325MG TAB PO PRN (02:07)
[2024-05-04 03:27] LABS: Hematocrit 24.7 % (36.0-46.0); Hemoglobin 8.3 g/dL (12.2-16.2); White Blood Cell 2.4 10^3/uL (4.4-10.8)
[2024-05-04 03:29] LABS: Mean Corpuscular Hemoglobin 29.3 pg (28.0-32.0); Mean Corpuscular Hgb Conc. 33.5 g/dL (32.0-36.0); Mean Corpuscular Volume 87.5 fL (80.0-100.0); Platelet Count (auto) 51 10^3/uL (140-450); Red Blood Cells 2.82 10^6/uL (4.0-5.20); Red Cell Distribution Width 16.9 % (11.8-14.3)
[2024-05-04 03:46] LABS: Alkaline Phosphatase 74 U/L (46-116); Anion Gap 6 (5-15); Carbon Dioxide 25 mmol/L (20-31); Chloride 107 mmol/L (98-107); Magnesium 1.8 mg/dL (1.6-2.6); Potassium 4.4 mmol/L (3.5-5.1); Sodium 138 mmol/L (136-145)
[2024-05-04 03:47] LABS: Phosphorus 3.2 mg/dL (2.4-5.1)
[2024-05-04 03:53] LABS: Basophils % (manual) 0 (0.0-2.0); Blast Cells 0; Eosinophils % (manual) 0 (0-7); Metamyelocytes % 0; Myelocytes % 0; Promyelocytes % 0; Reactive Lymphocytes 0
[2024-05-04 04:02] LABS: Lactic Acid w/Reflex 2.6 mmol/L (0.4-2.0)
[2024-05-04 04:11] LABS: Alanine Aminotransferase < 9 U/L (7-40); Aspartate Aminotransferase 11 U/L (13-40); Bilirubin, Total 0.2 mg/dL (0.2-1.0); Calcium 7.5 mg/dL (8.7-10.4); Glucose 137 mg/dL (74-106); Total Protein 4.4 g/dL (5.7-8.2)
[2024-05-04 04:23] LABS: BUN/Creatinine Ratio 35.5 (10.0-20.0); Blood Urea Nitrogen 11 mg/dL (9-23)
[2024-05-04] MEDS: MAGNESIUM SULFATE 1GM/100ML 100 ML IV ONE (06:44)
[2024-05-04 07:13] LABS: Band Neutrophils % (manual) 1; Lymphocytes % (manual) 34 (10.0-50.0); Monocytes % (manual) 4 (0-12); Platelet Estimate Decreased
[2024-05-04] MEDS: LACTATED RINGER'S 1,000 ML IV SCH (09:00)
[2024-05-04] MEDS: LOPERAMIDE HCL 2 MG CAP/TAB PO ONE (15:57)
[2024-05-04] MEDS: DIPHENOXYLATE W/ATROPINE 2.5 MG TAB PO ONE (17:30)
--- NOTE | 2024-05-04 17:39 | DVHDSRES ---
Discharge Summary Date of Admission Resident Creating Document: GREGG BRUNER RESIDENT Apr 25, 2024 at 22:11 Date of Discharge: May 04, 2024 Admitting Diagnosis Severe anemia due to iron deficiency and HIV Chronic diarrhea in an HIV patient Leukopenia Probable MAC pneumonia UTI HIV - Probable AIDS Hepatosplenomegaly Substance abuse Nephrolithiasis probably secondary to oxalate stones Splenomegaly Noncompliance Wounds: Grade II wounds in the perineal area Labs/Diagnostic Data: Laboratory Results Test 05/04/24 08:45 05/04/24 03:30 05/04/24 03:07 05/03/24 16:23 Lactic Acid Level 2.3 mmol/L (0.4-2.0) Miscellaneous Referred Test (Refrg) Sent to [facility] White Blood Count 2.4 10^3/uL (4.4-10.8) Red Blood Count 2.82 10^6/uL (4.0-5.20) Hemoglobin 8.3 g/dL (12.2-16.2) Hematocrit 24.7 % (36.0-46.0) Mean Corpuscular Volume 87.5 fL (80.0-100.0) Mean Corpuscular Hemoglobin 29.3 pg (28.0-32.0) Mean Corpuscular Hemoglobin Concent 33.5 g/dL (32.0-36.0) Red Cell Distribution Width 16.9 % (11.8-14.3) Platelet Count 51 10^3/uL (140-450) Mean Platelet Volume 8.0 fL (6.9-10.8) Neutrophils (%) (Auto) % (37.0-80.0) Lymphocytes (%) (Auto) % (10.0-50.0) Monocytes (%) (Auto) % (0.0-12.0) Basophils (%) (Auto) % (0.0-2.0) Neutrophils # (Auto) 10 ^3/uL (1.6-8.6) Lymphocytes # (Auto) 10 ^3/uL (0.4-5.4) Monocytes # (Auto) 10 ^3/uL (0-1.3) Differential Total Cells Counted 100.0 (100) Neutrophils % (Manual) 61 (37.0-80.0) Band Neutrophils % (Manual) 1 Lymphocytes % (Manual) 34 (10.0-50.0) Monocytes % (Manual) 4 (0-12) Eosinophils % (Manual) 0 (0-7) Basophils % (Manual) 0 (0.0-2.0) Metamyelocytes % (manual) 0 Myelocytes % (Manual) 0 Promyelocytes % (Manual) 0 Blast Cells % (Manual) 0 Reactive Lymphocytes 0 Platelet Estimate Decreased Sodium Level 138 mmol/L (136-145) Potassium Level 4.4 mmol/L (3.5-5.1) Chloride Level 107 mmol/L (98-107) Carbon Dioxide Level 25 mmol/L (20-31) Anion Gap 6 (5-15) Blood Urea Nitrogen 11 mg/dL (9-23) Creatinine 0.31 mg/dL (0.550-1.02) Glomerular Filtration Rate Calc 146 mL/min (>90) BUN/Creatinine Ratio 35.5 (10.0-20.0) Serum Glucose 137 mg/dL (74-106) Calcium Level 7.5 mg/dL (8.7-10.4) Phosphorus Level 3.2 mg/dL (2.4-5.1) Magnesium Level 1.8 mg/dL (1.6-2.6) Total Bilirubin 0.2 mg/dL (0.2-1.0) Aspartate Amino Transferase (AST) 11 U/L (13-40) Alanine Aminotransferase (ALT) < 9 U/L (7-40) Alkaline Phosphatase 74 U/L (46-116) Total Protein 4.4 g/dL (5.7-8.2) Albumin 2.0 g/dL (3.2-4.8) Prothrombin Time 13.7 sec (9.3-11.8) Prothrombin Time INR 1.33 (0.9-1.15) Activated Partial Thromboplast Time 37.9 SEC (24.5-34.5) Test 05/02/24 16:57 05/02/24 10:52 05/02/24 07:54 05/02/24 04:25 Random Amikacin Level 3.5 ug/mL (1.0-30.0) Blood Gas Specimen Type Arterial Blood Gas Sample Site Right radial Blood Gas Patient Temperature 37.0 Arterial Blood Date Drawn [id number] Arterial Blood pH 7.526 (7.350-7.450) Arterial Blood Partial Pressure CO2 19.3 mmHg (32.0-45.0) Arterial Blood Partial Pressure O2 92.6 mmHg (83.0-108.0) Arterial Blood HCO3 15.6 mmol/L (21.0-28.0) Arterial Blood Oxygen Saturation 96.8 % (94.0-98.0) Arterial Blood Base Excess -5.7 mmol/L (-2.0-3.0) Arterial Blood Oxyhemoglobin 96.1 % (94.0-98.0) Arterial Blood Carboxyhemoglobin 0.6 % (0.5-1.5) Arterial Blood Methemoglobin 0.1 % (0.0-1.5) Jhonathan Test Modified Blood Gas Total Hemoglobin 9.30 g/dL (12.0-16.0) Blood Gas Modality Room air FiO2 % 21.0 Specimen Drawn By lalit noriega Blood Gas Critical Value Read Back yes Blood Gas Notified Whom bharath daly Blood Gas Notified Time [id number] Blood Gas Notified By lalit noriega Cortisol AM Sample 14.45 ug/dL (5.27-22.45) Vitamin B12 Level 1070 pg/mL (211-911) Folic Acid 6.33 ng/mL (>5.38) Test 05/01/24 15:32 05/01/24 09:58 04/30/24 06:58 04/29/24 17:30 Erythrocyte Sedimentation Rate 20 mm/hr (0-20) Reticulocyte Count (auto) 2.66 % (0.5-1.5) Eosinophils (%) (Auto) 2.8 % (0.0-7.0) Eosinophils # (Auto) 0 10 ^3/uL (0-0.8) Basophils # (Auto) 0 10 ^3/uL (0-0.2) Nucleated Red Blood Cells 0.3 % Troponin I High Sensitivity < 3 ng/L (</=34) Anisocytosis (manual) Slight Hepatitis A IgM Antibody Negative Hepatitis B Surface Antigen Negative (Negative) Hepatitis B Core IgM Antibody Negative (Negative) Hepatitis C Antibody Negative (Negative) Urine Color Light-yellow (Yellow) Urine Clarity Clear (Clear) Urine pH 5.0 (5.0-9.0) Urine Specific [place] 1.007 (1.001-1.035) Urine Protein Negative (Negative) Urine Ketones Negative (Negative) Urine Blood Negative /uL (Negative) Urine Nitrite Negative (Negative) Urine Bilirubin Negative (Negative) Urine Urobilinogen Normal mg/dL (Negative) Urine Leukocyte Esterase Negative /uL (Negative) Urine RBC <1 /hpf (0 - 4) Urine Microscopic WBC < 1 /HPF (0-5) Urine Squamous Epithelial Cells None seen /hpf (<5) Urine Bacteria None seen /hpf (None Seen) Urine Hyaline Casts Few /lpf (0 - 2) Urine Mucus Few (None Seen) Urine Glucose Normal mg/dL (Normal) Test 04/29/24 07:35 04/28/24 10:30 04/26/24 11:45 04/26/24 04:37 Parathyroid Hormone (Intact) 6.9 pg/mL (18.4-80.1) Clumped Platelets Moderate Large Platelets Few Schistocytes Few Stool pH 7.5 (7.0-7.5) Stool Occult Blood Positive (Negative) Stool Occult Blood Sample #3 (Negative) Stool for White Cells None seen Free Thyroxine (T4) Calculated 0.69 ng/dL (0.89-1.76) Total Triiodothyronine (TT3) 0.68 ng/mL (0.60-1.81) Test 04/25/24 23:42 04/25/24 22:52 04/25/24 17:30 04/25/24 16:21 Absolute Neutrophils (auto) 1.1 x10e3/ul Absolute Lymphocytes (auto) 0.6 x10e3/ul Absolute Monocytes (auto) 0.2 x10e3/ul Absolute Eosinophils (auto) 0.0 x10e3/ul Absolute Basophils (auto) 0.0 x10e3/ul Immature Blood Cells Hematology Comments Percent CD4 Cells 2.9 % Absolute CD4 Count 17 /ul T-Lymphocyte CD4/CD8 Ratio 0.04 Percent CD8 Cells 71.8 % Absolute CD8 Count 431 /ul Haptoglobin 199 mg/dL (33-278) Cryptococcus Antibody Negative (Neg:<1:2) Cytomegalovirus IgG Antibody >10.00 U/mL (0.00-0.59) Cytomegalovirus IgM Antibody <30.0 AU/mL (0.0-29.9) Urine Calcium Oxalate Crystals Many (None Seen) Urine Test Negative (Negative) Urine Opiates Screen Neg (NEGATIVE) Urine Fentanyl Screen Neg (NEGATIVE) Urine Barbiturates Screen Neg (NEGATIVE) Urine Phencyclidine Screen Neg (NEGATIVE) Urine Amphetamines Screen Neg (NEGATIVE) Urine Benzodiazepines Screen Neg (NEGATIVE) Urine Cocaine Screen Neg (NEGATIVE) Urine Cannabinoids Screen Pos (NEGATIVE) Iron Level 23 ug/dL (50-170) Total Iron Binding Capacity 175 ug/dL (250-425) Percent Iron Saturation 13.1 % (15-50) Ferritin 287.5 ng/mL (10-291) Lactate Dehydrogenase 153 U/L (120-246) Thyroid Stimulating Hormone (TSH) 20.72 uIU/mL (0.55-4.78) Other Laboratory Tests 05/04/24 03:07 Brief Hx & Hospital Course: Patient presented to the ED with the chief complaint of 2 weeks history of worsening diarrhea. Patient is HIV positive and reported to be on Biktarvy and follows up with the ID physician but she had been noncompliant in the last few weeks/months. Patient reported that she was admitted with similar complaint of watery diarrhea recently at the [facility] and subsequently was discharged from the after improvement. At this admission patient had low hemoglobin, low white blood cell count with neutropenia and multiple episodes of watery stools following which the patient was started on empiric antibiotics with meropenem, azithromycin, Bactrim for broad-spectrum coverage. Patient was started on Biktarvy. CD4 count during this admission is at 17. She was reportedly diagnosed with MAC recently and has been taking ethambutol which was restarted in the hospital. Infectious Disease were consulted and blood samples for CMV, cryptococcus, hepatitis panel which tested negative. Cryptosporidium stool antigen were sent and the report is still pending. Amikacin was added for broadening the coverage. Patient had a high TSH with low free T4 following which he was started on levothyroxine. Echocardiogram showed [id number] pericardial effusion and on visual estimate left ventricle was showed good contraction and ejection fraction seem to be preserved/mildly reduced(echo has not been formally reported by the employment law specialist). Patient was on continued IV fluid hydration for replacement as she was having watery stools. She was noted to have bilateral pitting edema in the lower extremities and also had low albumin following which patient was put on albumin with Lasix for 1 day which improved her edema and also to some extent decrease the amount of bowel movements. Patient continued to have multiple episodes of loose bowel movement and a blood pressure dropped following which she had to be started on vasopressors with norepinephrine and shifted to ICU status. While in the ICU another day of albumin diuresis was done and norepinephrine BUN was slowly weaned off. Patient remained in the ICU for more than 24 hours without vasopressor support following which she downgraded to telemetry Serum a.m. cortisol level was within normal limits but as the patient was in significant distress because of sepsis/septic shock it was expected to be higher. With the suspicion of inadequate adrenal response patient was started on hydrocortisone 50 mg q.6 hours, 3 days were completed. Patient's blood pressure throughout the stay in the hospital was kept above mean artery pressure of 65 mmHg. GI were consulted who started the patient on Florastor, cholestyramine and Lomotil. Patient was currently stable but require higher level of care for critical infectious disease for which she has been transferred. Prognosis is guarded. Consults/Reason for consult Infectious disease consult for intractable diarrhoea with HIV and AIDS, medication noncompliance GI consult Operations or Procedures US GUIDANCE FOR NEEDLE PLACEMENT HISTORY: LYMPH NODE BIOPSY PROCEDURE: Informed consent was obtained. The patient was placed supine on the gurney, and limited US was performed of the right groin. The skin over the area of interest was prepped with chlorhexidine which was allowed to dry and draped in the usual sterile fashion. Time out was performed. 1% local lidocaine was administered. With intermittent US guidance, Temno 17 gauge outer coaxial guiding needle was advanced into the right inguinal lymph n ode. Multiple biopsies were obtained using Temno 18 gauge inner core biopsy needle. The specimens were placed in formalin and RPMI and sent to pathology for analysis. The needle was withdrawn . Post procedural images were obtained. No immediate complication was identified. FINDINGS: Prominent right inguinal lymph node. Intra-procedural images demonstrate biopsy needle within the margin of targeted lesion. Post procedural images do not demonstrate any significant hemorrhage. IMPRESSION: US guided right inguinal lymph node biopsy. Pathology results pending Condition at Discharge: Higher Level of Care Final Diagnosis/Problems List # septic shock likely due to AIDS # severe dehydration due to acute intractable diarrhea # lactic acidosis # pericardial effusion # HIV with AIDS # presumed MAC infection # possible cryptococcus infection # possible Cryptosporidium gastroenteritis # Possible HIV induced Hepatic steatosis # hypothyroidism # hypoparathyroidism # pericardial effusion maybe possible due to hypothyroidism # inadequate adrenal response # leukocytopenia with neutropenia # normocytic normochromic anemia with a low reticulocyte index # ? Bone marrow suppression due to AIDS # coagulopathy with elevated PT INR # Thrombocytopenia # Hypokalemia # Hypomagnesemia # hypophosphatemia Discharge Disposition: Acute Care Facility Discharge Instruct/Medications Diet: See Comment Diet comment: Mechanical soft diet Activity: No Restrictions, As Tolerated Medications: as per Discharge paper work Discharge Statement: "Patient was advised to return to the ER or call 911 if any headaches, dizziness, shortness of breath, chest pain, abdominal pain, bleeding, fevers, or worsening of medical condition. Patient was counseled about treatment plan, medications, possible side effects, patientverbalized understanding. All questions were answered to the best of my ability. This discharge took greater then 30 minutes in planning, reviewing documentation, counseling the patient, and discussing with other team members." ASSESSMENT ASSESSMENT Assessment # septic shock likely due to AIDS # severe dehydration due to acute intractable diarrhea # lactic acidosis # pericardial effusion # HIV with AIDS # presumed MAC infection # possible cryptococcus infection # possible Cryptosporidium gastroenteritis # Possible HIV induced Hepatic steatosis # hypothyroidism # hypoparathyroidism # pericardial effusion maybe possible due to hypothyroidism # inadequate adrenal response # leukocytopenia with neutropenia # normocytic normochromic anemia with a low reticulocyte index # ? Bone marrow suppression due to AIDS # coagulopathy with elevated PT INR # Thrombocytopenia # Hypokalemia # Hypomagnesemia # hypophosphatemia GREGG BRUNER RESIDENT May 04, 2024 17:39
--- NOTE | 2024-05-04 22:42 | DVHPN2 ---
Progress Note - Dictate Date Seen: May 04, 2024 (Time of visit 5:00 p.m.) Has the PT tested + for MRSA If YES, has PT been informed?: No Medical Necessity Reason Pt with a Central, PICC or Fol: Yes The following are medically ne: PICC Line, Díaz Catheter Reason for díaz catheter: Strict I&O Subjective Pt seen in Patient's rectal tube was discontinued last night Nurse reports continued episodes of loose stool Patient is also agitated asking for pain medications Low dose pressors On IV antibiotics vital signs Vital Sign Date Time Temp Pulse Resp B/P (MAP) Pulse Ox O2 Delivery O2 Flow Rate FiO2 05/04/24 21:00 98.0 96 18 102/55 (71) 96 98.0 05/04/24 20:00 Room Air* 0 21 Total Intake and Output 05/03/24 05/03/24 05/04/24 15:00 23:00 07:00 Intake Total 1321.50 ml 2500 ml 2107 ml Output Total 650 ml 1600 ml Balance 1321.50 ml 1850 ml 507 ml medications Current Medications Medications Dose Ordered Sig/Era Route Start Time Stop Time Status Last Admin Dose Admin Acetaminophen 650 mg Q6HP PRN PO 04/25/24 22:15 05/03/24 13:11 650 MG Ondansetron HCl 4 mg Q4HP PRN IV 04/25/24 22:15 05/04/24 16:09 4 MG Trimethoprim/ Sulfamethoxazole 2 tab Q8HR PO 04/26/24 06:00 UNV Patient Own Medication 1 cap QID PO 04/26/24 06:00 UNV Patient Own Medication 1 cap TID PO 04/26/24 06:00 UNV Patient Own Medication 1 tab DAILY PO 04/26/24 10:00 UNV Patient Own Medication 100 mg Q4HR PO 04/26/24 02:00 Hold Prenat Multivit/ Mortgage Protection Specialist/Iron/Folic Ac 1 DAILY PO 04/26/24 10:00 05/04/24 10:29 1 Meropenem 50 ml @ 17 mls/hr Q8HR IV 04/26/24 14:00 05/04/24 21:18 17 MLS/HR Cholestyramine Resin 4 gm Q12HR@11,23 PO 04/27/24 23:00 05/04/24 11:20 4 GM Melatonin 5 mg HS PO 04/28/24 22:00 05/03/24 20:22 5 MG Levothyroxine Sodium 125 mcg QAM@0600 PO 04/29/24 06:00 05/04/24 06:24 125 MCG Patient Own Medication 1 DAILY PO 04/29/24 10:00 05/04/24 10:29 1 Enteral Nutritional Formula 240 ml TIDWM PO 04/29/24 08:00 05/04/24 18:11 240 ML Calcium/Vitamin D 1 tab BIDWM PO 04/29/24 08:00 05/04/24 08:43 1 TAB Ethambutol HCl 1,200 mg DAILY PO 04/29/24 10:00 05/04/24 10:29 1,200 MG Pantoprazole Sodium 40 mg DAILY@0600 PO 04/29/24 06:00 05/04/24 06:24 40 MG Potassium Chloride 20 meq DAILY PO 05/01/24 10:00 Hold 05/03/24 08:41 20 MEQ Norepinephrine Bitartrate 250 ml @ 3.75 mls/hr Q24H IV 05/01/24 09:15 UNV Norepinephrine Bitartrate 250 ml @ 3.75 mls/hr Q24H IV 05/01/24 10:00 05/03/24 00:07 7.5 MLS/HR Sodium Chloride 10 ml QSHIFT@10,22 IV 05/01/24 22:00 05/04/24 10:31 10 ML Guaifenesin/ Dextromethorphan 10 ml Q6HPRN PRN PO 05/01/24 21:45 05/04/24 11:03 10 ML Azithromycin 250 ml @ 125 mls/hr Q24H IV 05/02/24 11:00 05/04/24 11:20 125 MLS/HR Micafungin Sodium 100 mg/Sodium Chloride 100 ml @ 100 mls/hr Q24H IV 05/02/24 12:00 Cancel Amikacin Sulfate 0 ml @ 0 mls/hr PER PHARMACY IV 05/02/24 08:15 Hydrocortisone Sodium Succinate 50 mg Q6H IV 05/02/24 15:00 05/04/24 21:18 50 MG Saccharomyces Boulardii 250 mg DAILY PO 05/03/24 10:00 05/04/24 10:28 250 MG Olanzapine 5 mg DAILY PO 05/03/24 10:00 05/04/24 10:28 5 MG Clonazepam 0.5 mg Q12HP PRN PO 05/03/24 00:30 05/04/24 21:26 0.5 MG Amikacin Sulfate 1000 mg/Dextrose 104 ml @ 104 mls/hr DAILY@1000 IV 05/03/24 10:00 05/04/24 10:45 104 MLS/HR Acetaminophen/ Hydrocodone Bitart 1 tab Q6HP PRN PO 05/03/24 15:00 05/04/24 17:34 1 TAB Morphine Sulfate 2 mg Q4HPRN PRN IV 05/03/24 15:00 Lactated Ringer's 1,000 ml @ 100 mls/hr Q10H IV 05/04/24 09:00 05/04/24 09:00 100 MLS/HR Diphenoxylate HCl/ Atropine 2.5 mg Q12HR PO 05/05/24 10:00 objective General Appearance: Alert, Oriented X3, Cooperative, No acute distress. HEENT: Atraumatic, PERRLA, EOMI, Mucous membrane dry/pale Respiratory: Clear to auscultation, Normal air movement Cardiovascular: Regular rate, Normal S1, Normal S2, No murmurs, no chest wall tenderness Abdominal: NO distention, no tenderness, bowel sounds present, no scars noted, hepatosplenomegaly palpated Extremities: No clubbing, No cyanosis, No edema, Normal pulses, No tenderness/swelling Skin: No rashes, No breakdown, No significant lesion Neuro: Normal gait, Normal speech, Strength at 5/5 X4 ext, Normal tone, Sensation intact, Cranial nerves 3-12 NL, Reflexes 2+ Psych/Mental Status: Mental status NL, Mood NL laboratory and microbiology Laboratory Tests 05/04/24 03:07 Test 05/04/24 03:07 Range/Units Serum Glucose 137 H 74-106 mg/dL Problems(with codes): (1) Morbid obesity due to excess calories (2) Multifocal pneumonia (3) Elevated liver enzymes (4) HIV disease (5) Opportunistic infection Prognosis Plan Continue Questran 4 g packet p.o. twice a day Continue Lomotil one tablet p.o. q.6 hours Stool tests are negative so far, pending cryptosporidiosis Patient is being transferred to [facility] for further management and higher level of care for HIV specialty care Dietary Evaluation Review Comments: 1) Consider another anti-diarrheal 2) Continue to promote optimal PO intake 3) F/u with immunology 4) Continue to monitor I&O, labs, and skin integrity Expected Outcomes/Goals: 1) appetite and labs to improve 2) f/u in 3-5 days Plan discussed with: Patient CC Plasma Assessment Blood Product Administration S: [id number] JAMESON KIM MD May 04, 2024 22:42
[2024-05-05] MEDS ORDERED: DIPHENOXYLATE W/ATROPINE 2.5 MG TAB PO SCH (10:00)
== END 2024-05-04 22:15 | disposition short-term general hospital (02) | DRG 890 ==
LOC: EDUNIT# 15:35 → EDBD 15:35 → ER 15:35 → OVERFLOW 22:11 → EAST 04-26 15:57 → TELE-EAST 04-27 12:39 → CATH ICU 05-01 10:41 → ICU WEST 05-02 14:45 → TELE-CENTR 05-04 12:08
PROVIDERS: ADMIT Student in an Organized Health Care Education/Training Program; ATTEND Student in an Organized Health Care Education/Training Program
PROC: 30233N1 Transfusion of Nonautologous Red Blood Cells into Peripheral Vein, Percutaneous Approach (ICD-10-PCS; principal; 2024-04-26)
PROC: 07BH3ZX Excision of Right Inguinal Lymphatic, Percutaneous Approach, Diagnostic (ICD-10-PCS; 2024-04-27)
PROC: 02HV33Z Insertion of Infusion Device into Superior Vena Cava, Percutaneous Approach (ICD-10-PCS; 2024-05-01)
PROC: B548ZZA Ultrasonography of Superior Vena Cava, Guidance (ICD-10-PCS; 2024-05-01)
DX: B20 Human immunodeficiency virus [HIV] disease (principal); A41.9 Sepsis, unspecified organism; B45.9 Cryptococcosis, unspecified; R65.21 Severe sepsis with septic shock; I31.39 Other pericardial effusion (noninflammatory); E43 Unspecified severe protein-calorie malnutrition; D68.9 Coagulation defect, unspecified; A07.2 Cryptosporidiosis; E83.39 Other disorders of phosphorus metabolism; J18.9 Pneumonia, unspecified organism; E87.20 Acidosis, unspecified; E87.1 Hypo-osmolality and hyponatremia; E86.0 Dehydration; N39.0 Urinary tract infection, site not specified; F19.19 Other psychoactive substance abuse with unspecified psychoactive substance-induced disorder; N20.0 Calculus of kidney; E87.6 Hypokalemia; E03.9 Hypothyroidism, unspecified; D50.9 Iron deficiency anemia, unspecified; F19.10 Other psychoactive substance abuse, uncomplicated; E88.09 Other disorders of plasma-protein metabolism, not elsewhere classified; E83.42 Hypomagnesemia; E83.51 Hypocalcemia; K76.0 Fatty (change of) liver, not elsewhere classified; D69.6 Thrombocytopenia, unspecified; Z90.49 Acquired absence of other specified parts of digestive tract; Z98.891 History of uterine scar from previous surgery; Z91.199 Patient's noncompliance with other medical treatment and regimen due to unspecified reason; Z68.24 Body mass index [BMI] 24.0-24.9, adult
CPT/HCPCS: 36415; 36569; 36600; 71045; 74176; 76705; 76775; 76881; 76937; 76942; 80048; 80053; 80074; 80150; 80307; 81001; 81025; 82040; 82270; 82533; 82607; 82728; 82746; 82805; 83010; 83540; 83550; 83605; 83615; 83735; 83970; 83986; 84100; 84132; 84425; 84439; 84443; 84480; 84484; 85007; 85014; 85018; 85025; 85027; 85045; 85048; 85610; 85652; 85730; 86360; 86641; 86644; 86645; 86850; 86900; 86901; 86920; 87040; 87045; 87081; 87086; 87177; 87427; 87493; 93306; 96374; 96375; 99291; G0378; J1447; J1885; J2003; J2185; J2248; J2405; J3480; J3490; J7060; P9047

== ENCOUNTER 2024-07-06 17:46 | Inpatient (IN) | payer MEDICAID ==
[~2024-07-06] VITALS: Ht 165.1 cm; Wt 71.3 kg
--- NOTE | 2024-07-06 17:54 | ED.PDOC ---
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 Bone marrow suppression due to AIDS # coagulopathy with elevated PT INR # Thrombocytopenia # Hypokalemia # Hypomagnesemia Vitals Temperature: Respiratory rate: SpO2: Heart rate: Blood pressure: Past Medical History: HIV Past Surgical History: Cholecystectomy, Social History: marijuana TROY: HPI: Poor Historian. Brought in by ambulance from home for evaluation of three day history of generalized weakness. PATIENT WAS DISCHARGED from [facility] approximately two weeks ago. Patient has multiple blood transfusions IN THE PAST. Patient has some black stool. patient states that she is here mainly for blood transfusion and shesuspects that her hemoglobin is low. She does appear pale. She has some shortness of breath and midsternal chest pain nonspecific nonradiating constant. Patient states her HIV is not control. She has AIDS according to previous charts. she is also having black diarrhea with some nonspecific abdominal pain. Patient appears ill and sick. Patient was hypotensive and tachycardic at the scene. Blood pressure in the 70s systolically and heart rate in the 140s. Past Medical History: Multiple blood transfusion, HIV, MAC Past Surgical History: , TONSILLECTOMY, CHOLECYSTECTOMY REVIEW OF SYSTEMS: CONSTITUTIONAL: Denies acute: fever, diaphoresis, chills, HEAD: Denies acute: headache, photophobia Eyes: Denies acute: Double vision, vision loss, eye pain, eye discharge. EARS: Denies acute: tinnitus, hearing loss, ear discharge, ear pain, THROAT: Denies acute: sore throat, swelling, difficulty swallowing , pain with swallowing, change in voice. NECK: Denies acute: neck pain, neck swelling, stiff neck. HEART: Denies acute : LUNGS: Denies acute: , wheezing, cough, hemoptysis ABDOMEN: Denies acute: , Nausea, Vomiting, diarrhea, , hematemesis, hematochezia SKIN: Denies acute: rash, redness, lesions, itchiness. EXTREMITIES: Denies acute: calf pain, numbness, tingling, weakness, denies pain in extremity. Denies acute: Low back pain. Neuro: Denies acute: focal neurological deficit, motor or sensory focal neurological deficit, tremors, seizure like activity, confusion, dizziness, change in mental status, loss of bowel or bladder function, cauda equina like symptoms. : Denies acute: dysuria, hematuria, flank pain, increase in urinary frequency. PSYCH: Denies acute: hallucination, suicidal ideation, homicidal ideation. FEMALE: Denies acute: abnormal vaginal bleeding, foul odor, unusual discharge. PHYSICAL EXAM: General: ----moderate----acute distress, awake and alert. Head: normocephalic, atraumatic. Neck: supple, trachea is midline, no swelling. Throat: Normal phonation. Eyes:, no erythema, no purulent discharge, no proptosis, no icterus. Heart: regular tachycardia,, no significant murmur appreciated. Lungs: [id number] respiratory distress, Able to speak in full sentences. No wheezing, no rhonchi, no crackles. No stridors Clear to auscultation bilaterally. Abdomen: Nonspecific tender to palpation, non distended, soft, no guarding, no rebound, + bowel sounds. Neuro: Awake, Alert, oriented to name, self, situation, follows commands GCS=15. Speech is normal. Skin: no petechia, no purpura, no cyanosis, noted-pale, not jaundice. Lower extremities: --no - Pitting edema no deformity, no focal swelling, no calf TTP. Makes eye contact. moves all four extremities. Face: no apparent facial droop. ED COURSE: Chief Complaint: General Weakness Time Seen by MD: 17:45 Primary Care Provider: UNKNOWN Reviewed Notes: Medications, Allergies Allergies: Coded Allergies: NO KNOWN ALLERGIES (Unverified , 10/22/20) Home Meds Active Scripts Sulfamethoxazole W/Trimethopri (Bactrim Ds Tablet) 1 Tab Tb, 2 TAB PO Q8HR for 21 Days, #126 TAB Prov:MAXIM NIELSEN PAC 07/08/23 Benzonatate (Benzonatate) 100 Mg Cap, 1-2 CAP PO Q4HR, #60 CAP Prov:MAXIM NIELSEN PAC 07/08/23 Permethrin (Elimite) 5 % Cre, 1 APPLIC TOP ONCE, #60 GRAMS 1 Refill Prov:TONY NAVARRO 05/13/22 Cephalexin ( Keflex 500) 500 Mg Cap, 1 CAP PO QID, #40 CAP Prov:TONY NAVARRO 05/13/22 Sulfamethoxazole W/Trimethopri (Bactrim Ds Tablet) 1 Tab Tb, 1 TAB PO BID for 10 Days, #20 TAB Prov:TONY NAVARRO 05/13/22 Ibuprofen (Ibuprofen) 800 Mg Tab, 1 TAB PO TID, #30 TAB Prov:TONY NAVARRO 05/13/22 Clindamycin Hcl (Clindamycin Hcl) 300 Mg Cap, 1 CAP PO TID for 10 Days, #21 CAP 0 Refills Prov:AMAYA SÁNCHEZ 11/19/21 Reported Medications Vit W/ Ferrous Fumara ( One Daily) Daily Tab, 1 TAB PO DAILY, #90 TAB 3 Refills 10/22/20 Emtricitabine-Tenofovir Disopr (Truvada) Tab, 1 TAB PO DAILY, #30 TAB 2 Refills 10/22/20 Information Source: Patient, Emergency Med Personnel Mode of Arrival: EMS Severity: Moderate Duration: Since onset Prehospital treatment: None Past Medical History PAST MEDICAL HISTORY: HIV Surgical History: Cholecystectomy, 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 Was a procedure done?: No CP Differential Dx Differential Diagnosis: N/A [facility] Differential Diagnosis: Other ( Includes but not limited to thyroid disease, encephalopathy, electrolyte abnormality, sepsis, infection, intracranial pathology, drug adverse effects, arrhythmia, kidney insufficiency, ACS, CVA, malignancy, anemia) Differential Diagnosis: Other (Ddx include but not limitied to gastritis, musculoskeletal pain, radiculopathy, atypical chest pain, dissection, aneurysm, ACS, unstable angina, hiatal hernia, GERD, anxiety, costochondritis, PE, pneumothroax, neoplasm, cardiac ischemia, drug abuse, anemia.) X-Ray, Labs, Meds, VS Vital Signs Date Time Temp Pulse Resp B/P (MAP) Pulse Ox O2 Delivery O2 Flow Rate FiO2 07/06/24 19:45 Nasal Cannula* 2 28 07/06/24 18:00 Nasal Cannula* 2 28 07/06/24 18:00 99.3 122 21 121/64 (83) 100 99.3 07/06/24 17:49 99.3 139 16 75/42 (53) 98 99.3 07/06/24 17:46 140 Lab Test 07/06/24 21:10 07/06/24 20:11 07/06/24 19:10 07/06/24 18:30 Range/Units Troponin I High Sensitivity < 3 L < 3 L </=34 ng/L Lactic Acid Level 1.5 0.4-2.0 mmol/L Stool Occult Blood Positive Negative Stool Occult Blood Sample #3 Negative Stool for White Cells Few Test 07/06/24 18:21 Range/Units White Blood Count 3.7 L 4.4-10.8 10^3/uL Red Blood Count 2.59 L 4.0-5.20 10^6/uL Hemoglobin 7.3 L 12.2-16.2 g/dL Hematocrit 22.9 L 36.0-46.0 % Mean Corpuscular Volume 88.4 80.0-100.0 fL Mean Corpuscular Hemoglobin 28.2 28.0-32.0 pg Mean Corpuscular Hemoglobin Concent 31.9 L 32.0-36.0 g/dL Red Cell Distribution Width 18.5 H 11.8-14.3 % Platelet Count 84 L 140-450 10^3/uL Mean Platelet Volume 8.2 6.9-10.8 fL Neutrophils (%) (Auto) 37.0-80.0 % Lymphocytes (%) (Auto) 10.0-50.0 % Monocytes (%) (Auto) 0.0-12.0 % Basophils (%) (Auto) 0.0-2.0 % Neutrophils # (Auto) 1.6-8.6 10 ^3/uL Lymphocytes # (Auto) 0.4-5.4 10 ^3/uL Monocytes # (Auto) 0-1.3 10 ^3/uL Differential Total Cells Counted 100.0 100 Neutrophils % (Manual) 68 37.0-80.0 Band Neutrophils % (Manual) 0 Lymphocytes % (Manual) 25 10.0-50.0 Monocytes % (Manual) 6 0-12 Eosinophils % (Manual) 1 0-7 Basophils % (Manual) 0 0.0-2.0 Metamyelocytes % (manual) 0 Myelocytes % (Manual) 0 Promyelocytes % (Manual) 0 Blast Cells % (Manual) 0 Reactive Lymphocytes 0 Platelet Estimate Decreased Sodium Level 127 L 136-145 mmol/L Potassium Level 3.3 L 3.5-5.1 mmol/L Chloride Level 100 98-107 mmol/L Carbon Dioxide Level 13 L 20-31 mmol/L Anion Gap 14 5-15 Blood Urea Nitrogen 13 9-23 mg/dL Creatinine 0.38 L 0.550-1.02 mg/dL Glomerular Filtration Rate Calc 139 >90 mL/min BUN/Creatinine Ratio 34.2 H 10.0-20.0 Serum Glucose 69 L 74-106 mg/dL Lactic Acid Level 2.3 *H 0.4-2.0 mmol/L Calcium Level 6.6 L 8.7-10.4 mg/dL Magnesium Level 1.8 1.6-2.6 mg/dL Total Bilirubin 0.5 0.2-1.0 mg/dL Aspartate Amino Transferase (AST) 22 13-40 U/L Alanine Aminotransferase (ALT) < 9 7-40 U/L Alkaline Phosphatase 54 46-116 U/L Troponin I High Sensitivity < 3 L </=34 ng/L B-Type Natriuretic Peptide 28.03 0-100 pg/mL Total Protein 5.3 L 5.7-8.2 g/dL Albumin 1.6 L 3.2-4.8 g/dL Lipase 20 12-53 U/L Current Medications Medications (Trade) Dose Ordered Sig/Era Route Start Time Stop Time Status Last Admin Sodium Chloride 1,000 ml @ 1,000 mls/hr Q1H ONCE IV 07/06/24 18:00 07/06/24 18:59 DC 07/06/24 18:00 Pantoprazole Sodium (Protonix) 40 mg ONCE ONCE IV 07/06/24 18:00 07/06/24 18:01 DC 07/06/24 19:45 Ceftriaxone Sodium 50 ml @ 100 mls/hr ONCE ONCE IV 07/06/24 19:15 07/06/24 19:44 DC 07/06/24 19:15 Albumin Human 100 ml @ 100 mls/hr ONCE ONCE IV 07/06/24 19:15 07/06/24 20:14 DC 07/06/24 19:15 Ondansetron HCl (Zofran) 8 mg ONCE ONCE IV 07/06/24 20:15 07/06/24 20:16 DC 07/06/24 20:17 [place] [address] Ph: [phone] DIAGNOSTIC IMAGING Diagnostic Imaging Report : [id number] Signed PATIENT: CAROLYN SIMMONS ACCT: [id number] UNIT: [id number] : 1995 LOC: ER ROOM / BED: / AGE / SEX: 28 / F ADM STATUS: REG ER SERVICE 28 ORDERING PHYSICIAN: KEEGAN FINE DO PROCEDURE(s): CXRP - CHEST PORTABLE REASON: weak, tachy, cp, sob, melena ORDER NUMBER(s): [id number], ACCESSION NUMBER(s): [id number] CHEST RADIOGRAPH Indication: weak, tachy, cp, sob, melena Technique: Single frontal view of the chest was obtained COMPARISON: XY CHEST PORTABLE on DOS: 05/01/24 FINDINGS: Lines and Tubes: None Lungs: Clear Pleura: No effusion. No pneumothorax. Cardiomediastinal contours: Unremarkable IMPRESSION: No abnormality demonstrated. ATED BY: NOLBERTO THOMPSON MD DICTATED DATE/TIME: 07/06/242018 SIGNED BY: NOLBERTO THOMPSON MD SIGNED DATE/TIME: 07/06/242018 CC: [address] [address] Ph: [phone] DIAGNOSTIC IMAGING Diagnostic Imaging Report : [id number] Signed PATIENT: CAROLYN SIMMONS ACCT: [id number] UNIT: [id number] : 1995 LOC: OVERFLOW ROOM / BED: 1020-ERT / A AGE / SEX: 28 / F ADM STATUS: ADM IN SERVICE 28 ORDERING PHYSICIAN: KEEGAN FINE DO PROCEDURE(s): ABPL - CT AB PEL WO CON-NO ORAL OR IV REASON: weak, tachy, cp, sob, melena ORDER NUMBER(s): [id number], ACCESSION NUMBER(s): [id number] Exam: CT CT AB PEL WO CON-NO ORAL OR IV History: weak, tachy, cp, sob, melena Comparison Study: CT CT AB PEL WO CON-NO ORAL OR IV on DOS: 04/25/24, CT CT AB PEL WO CON-NO ORAL OR IV on DOS: 01/03/24 TECHNIQUE: Multidetector CT of the abdomen was performed from lung bases to pubic symphysis. Imaging was performed without IV contrast. Axial, coronal and sagittal multiplanar reformats were obtained from the axial data set by the technologist. Radiation Dose Information: CT Dose: CTDI volume is 6.43 mGy. Dose-length product is 385.05 mGy*cm FINDINGS: Evaluation of solid organs is limited due to lack of intravenous contrast use. Findings: Lung Bases: No acute or significant lung base finding. Normal heart size. No pleural or pericardial effusion. Liver: The liver is normal in size. No focal lesions. Gallbladder and Biliary Tree: Gallbladder has been surgically removed Spleen: Large measures 20 cm Pancreas: The pancreas is grossly normal in appearance. Adrenal Glands: Unremarkable Kidneys: Kidneys are grossly normal without calculi or hydronephrosis. Bladder: Grossly unremarkable for degree of distention. Bowel: The stomach is grossly normal in appearance. Small bowel and colon are normal in caliber and distribution. The appendix is not visualized; however, no secondary findings of acute appendicitis identified. Ascites: Absent Lymphadenopathy: Questionable pericaval periaortic adenopathy recommend IV contrast oral contrast possible. Abdominal Wall and Mesentery: Unremarkable. Vasculature: The visualized abdominal aorta is normal in size and caliber. Evaluation of abdominal and pelvic vessels is limited due to lack of intravenous contrast. Pelvic Organs: IUD in the uterus Musculoskeletal: No aggressive focal bony lesions, acute fractures or dislocation. Soft tissues: Unremarkable IMPRESSION: 1. Splenomegaly measuring 20 cm 2. Questionable pericaval and periaortic adenopathy this is difficult to visualize since there is no oral or IV contrast. Consider repeat study with oral and 90 contrast if possible. 3. IUD in the uterus. 4. Gallbladder has been surgically removed. Radiation optimization: All CT scans at this facility use at least one of these dose optimization techniques: automated exposure control mA and/or kV adjustment per patient size (includes targeted exams where dose is matched to clinical indication) or iterative reconstruction. ATED BY: DO OLMSTEAD Jr., DO DICTATED DATE/TIME: 07/06/242253 SIGNED BY: DO OLMSTEAD Jr., SIGNED DATE/TIME: 07/06/242253 CC: Time of 1ST Reevaluation: 18:15 Reevaluation 1ST: Unchanged Time of 2ND Reevaluation: 03:11 Reevaluation 2ND: Improved Patient Education/Counseling: Diagnosis, Treatment Family Education/Counseling: Other Comments Patient presented with the above HPI.--Chest pain shortness of breath abdominal pain hypotension----workup was initiated. patient was found with the above mentioned diagnosis. the following medications were ordered: please refer to order lists of meds and tests obtained by myself Dr. Fine. Patient ED course and VS have been stabilized. Patient has been reassessed in the ED and remained in a stable condition. Pertinent incidental findings were discussed with the patient and/or family. Patient/family voices understanding and is agreeable with plan. Patient has been observed in the ED adequate length of time to insure improvement/stability. Escalation of care considered: Consideration of escalation to observation or admission antibiotics initiated given the patient's history of MAC and. CT scan of the abdomen and pelvis was obtained given the patient's diarrhea In the abdominal pain. Patient was given at least 2-3 L of normal saline bolus for fluid resuscitation because she was hypotensive. Repeat H and H shows drop in her hemoglobin. Patient was consented for blood transfusion which was initiated here in the ED. albumin was replaced. Suspecting GI bleed, Protonix was given. Patient's vital signs improved. Patient was ADMITTED to the medicine team for further evaluation and treatment of their presentation. All the reports of any imaging studies that were ordered by myself were reviewed by myself. Departure 1 Departure Time of Disposition: 17:54 Impression: Primary Impression: Chest pain Additional Impressions: Dyspnea Anemia Tachycardia HIV (human immunodeficiency virus infection) Hyponatremia Hypoalbuminemia Disposition: ADMITTED INPATIENT Admit to: Tele Condition: Guarded Discharged With: Self Critical Care Note Critical Care Time?: Yes (1 hr-critical care time only) Heart Score Heart Score: Heart Score Response (Comments) Value History Moderate Suspicious 1 EKG Normal 0 Age <45 0 Risk Factors 1 or 2 risk factors 1 Troponin Normal limit 0 Total 2 I personally scribed for KEEGAN FINE DO ([email or web address]) on 07/06/24 at 17:53. Electronically submitted by Bernice Bell ([email or web address]). I personally scribed for KEEGAN FINE DO ([email or web address]) on 07/06/24 at 21:33. Elec tronically submitted by Skip Hoffman ([email or web address]). KEEGAN FINE DO July 06, 2024 17:53
[2024-07-06] MEDS: SODIUM CHLORIDE 0.9% 1,000 ML IV ONE ×2 (18:00→22:17)
[2024-07-06] MEDS: AZITHROMYCIN 500MG/ 250ML 250 ML IV ONE (18:30)
[2024-07-06 18:58] LABS: Alkaline Phosphatase 54 U/L (46-116); Anion Gap 14 (5-15); Aspartate Aminotransferase 22 U/L (13-40); BUN/Creatinine Ratio 34.2 (10.0-20.0); Blood Urea Nitrogen 13 mg/dL (9-23); Chloride 100 mmol/L (98-107); Lipase 20 U/L (12-53); Magnesium 1.8 mg/dL (1.6-2.6)
[2024-07-06 18:59] LABS: Bilirubin, Total 0.5 mg/dL (0.2-1.0)
[2024-07-06 19:00] LABS: Alanine Aminotransferase < 9 U/L (7-40); Albumin 1.6 g/dL (3.2-4.8); Calcium 6.6 mg/dL (8.7-10.4); Carbon Dioxide 13 mmol/L (20-31); Glucose 69 mg/dL (74-106); Potassium 3.3 mmol/L (3.5-5.1); Sodium 127 mmol/L (136-145); Total Protein 5.3 g/dL (5.7-8.2)
[2024-07-06 19:05] LABS: Lactic Acid w/Reflex 2.3 mmol/L (0.4-2.0)
[2024-07-06] MEDS: ALBUMIN 25% 100 ML IV ONE (19:15)
[2024-07-06] MEDS: cefTRIAXone 1GM/50ML D5W 50 ML IV ONE (19:15)
[2024-07-06 19:16] LABS: Hemoglobin 7.3 g/dL (12.2-16.2); Mean Corpuscular Volume 88.4 fL (80.0-100.0); White Blood Cell 3.7 10^3/uL (4.4-10.8)
[2024-07-06 19:18] LABS: Hematocrit 22.9 % (36.0-46.0); Mean Corpuscular Hemoglobin 28.2 pg (28.0-32.0); Mean Corpuscular Hgb Conc. 31.9 g/dL (32.0-36.0); Platelet Count (auto) 84 10^3/uL (140-450); Red Blood Cells 2.59 10^6/uL (4.0-5.20); Red Cell Distribution Width 18.5 % (11.8-14.3)
[2024-07-06 19:20] LABS: Band Neutrophils % (manual) 0; Basophils % (manual) 0 (0.0-2.0); Blast Cells 0; Metamyelocytes % 0; Myelocytes % 0; Promyelocytes % 0; Reactive Lymphocytes 0
[2024-07-06 19:42] LABS: Eosinophils % (manual) 1 (0-7); Lymphocytes % (manual) 25 (10.0-50.0); Monocytes % (manual) 6 (0-12); Platelet Estimate Decreased
[2024-07-06] MEDS: PANTOPRAZOLE 40 MG/10 ML VIAL INJ IV ONE (19:45)
[2024-07-06] MEDS: CALCIUM GLUC 1,000mg/50ml-NS 50 ML IV SCH (20:15)
[2024-07-06] MEDS: D5W/SOD CHLO 0.9% 1,000 ML IV SCH (20:15)
[2024-07-06] MEDS ORDERED: ONDANSETRON HCL 4 MG/2 ML VIAL IV PRN (20:15)
[2024-07-06] MEDS ORDERED: DOCUSATE SOD 100 MG CAP PO PRN (20:15)
[2024-07-06] MEDS: ONDANSETRON HCL 4 MG/2 ML VIAL IV ONE (20:17)
[2024-07-06] MEDS: ONDANSETRON HCL 4 MG/2 ML VIAL ONE (20:17)
--- NOTE | 2024-07-06 20:22 | DVH ---
CHEST RADIOGRAPH Indication: weak, tachy, cp, sob, melena Technique: Single frontal view of the chest was obtained COMPARISON: XY CHEST PORTABLE on DOS: 05/01/24 FINDINGS: Lines and Tubes: None Lungs: Clear Pleura: No effusion. No pneumothorax. Cardiomediastinal contours: Unremarkable IMPRESSION: No abnormality demonstrated.
--- NOTE | 2024-07-06 20:42 | ECG ---
[facility] Test Date: 2024-07-06 Test Time: 17:43:12 Pat Name: CAROLYN SIMMONS Department: ED Room: 0261 Gender: F Occupational Therapy Technician: JOSE ROBERTO : 1995 Requested By: KEEGAN FINE Order Number: [id number] Reading MD: Miguel Levy Measurements Intervals [place] Rate: 140 P: 90 CO: 128 QRS: 62 QRSD: 80 T: -85 QT: 338 QTc: 516 Interpretive Statements Sinus tachycardia Borderline low voltage, extremity leads Nonspecific repol abnormality, diffuse leads Prolonged QT interval Electronically Signed On 07-08-2024 22:27:39 PDT by Miguel Levy Please click the below link to view image of tracing.
[2024-07-06] MEDS ORDERED: NITROGLYCERIN 0.4 MG SL TAB SL PRN (21:45)
[2024-07-06] MEDS ORDERED: MORPHINE SULFATE INJ 2 MG/ml SYRG IV PRN (21:45)
--- NOTE | 2024-07-06 21:52 | DVHHP2 ---
History of Present Illness Reason for Visit: Symptomatic anemia History of Present Illness The patient is a 28 female with past medical history of HIV, MAC, and multiple blood transfusion presented to [facility] with complaint of generalized weakness. Patient reports symptoms progressively get worse with increased weakness, substernal chest pain, nonradiating, associated shortness of breaths, getting worse that prompted this visit. Patient was seen and evaluated in the ED, laboratory data shows WBC 3.7, hemoglobin 7.3, hematocrit 22.9, platelets 40074, sodium 127, potassium 3.3, BUN 12, creatinine 0.38, glucose 69, calcium 6.6, lactic acid 2.3, troponin < 3, BNP 28.03, protein 5.3, albumin 1.6, blood pressure 75/42 trending up to 121/64, heart rate 140 trending down to 102, temperature 99.3 F, O2 saturation 98% on oxygen. Abdomen/pelvis CT revealing splenomegaly measuring 20 cm, IUD in the uterus, gallbladder has been surgically removed. Patient will receive 2 units of PRBC, please see medication orders section in the computer. On my assessment, patient denies chest pain, no headache, no dizziness, no diaphoresis, currently on oxygen, no nausea, no vomiting, no fever, no chills. Patient was admitted for further evaluation and medical management. Past Medical History Multiple blood transfusion, HIV, MAC Past Surgical History section, Tonsillectomy, Cholecystectomy, Family History Reviewed, noncontributory to the management of this case. Past Social History The patient lives at home, denies smoking, alcohol or illicit drugs abuse. Review of Systems Constitutional: Yes: Weakness, Other (Fatigue); No: Fever, Chills, Sweats, Malaise Eyes: No: Pain, Vision change, Conjunctivae inflammation, Eyelid inflammation, Other, Redness ENT: No: Ear pain, Ear discharge, Nose pain, Nose discharge, Nose congestion, Mouth pain, Mouth swelling, Throat pain, Throat swelling, Other Respiratory: Shortness of breath; No: Cough, Dry, SOB with excertion, Wheezing, Hemoptysis, Pleuritic Pain, Sputum, Wheezing, Other Cardiovascular: No: Chest Pain, Palpitations, Orthopnea, Paroxysmal Noc. Dys pnea, Edema, Lt Headedness, Other Gastrointestinal: No: Nausea, Vomiting, Abdominal Pain, Diarrhea, Constipation, Melena, Hematochezia, Other Genitourinary: No Dysuria, No Frequency, No Incontinence, No Hematuria, No Retention, No Other Musculoskeletal: No: other, neck pain, shoulder pain, arm pain, back pain, hand pain, leg pain, foot pain Skin: No: Rash, Lesions, Jaundice, Bruising, Other Neurological: Weakness; No: Numbness, Incoordination, Change in speech, Confusion, Seizures, Other Allergies: Coded Allergies: NO KNOWN ALLERGIES (Unverified , 10/22/20) Medications Current Medications Medications Dose Ordered Sig/Era Route Start Time Stop Time Status Last Admin Dose Admin Pantoprazole Sodium 40 mg DAILY IV 07/07/24 10:00 Dextrose/Sodium Chloride 1,000 ml @ 75 mls/hr [id number] IV 07/06/24 20:15 Acetaminophen/ Hydrocodone Bitart 1 tab Q4HP PRN PO 07/06/24 20:15 Ondansetron HCl 4 mg Q4HP PRN IV 07/06/24 20:15 Hold Docusate Sodium 100 mg BIDPRN PRN PO 07/06/24 20:15 Multivitamins 1 tab DAILY PO 07/07/24 10:00 Acetaminophen 650 mg Q6HP PRN PO 07/06/24 20:15 Trimethoprim/ Sulfamethoxazole 1 tab Q12HR PO 07/07/24 10:00 Exam Vital Signs Vital Signs Date Time Temp Pulse Resp B/P (MAP) Pulse Ox O2 Delivery O2 Flow Rate FiO2 07/06/24 18:00 Nasal Cannula* 2 28 07/06/24 18:00 99.3 122 21 121/64 (83) 100 99.3 General Appearance: Alert, Oriented X3, Cooperative, No acute distress HEENT: Atraumatic, PERRLA, EOMI, Mucous membr. moist/pink Respiratory: Normal air movement Cardiovascular: Regular rate, Normal S1, Normal S2, No murmurs Abdominal: Normal bowel sounds, Soft, No tenderness, No hepatospenomegaly, No masses Extremities: No clubbing, No cyanosis, No edema, Normal pulses, No tenderness/swelling Skin: No rashes, No breakdown, No significant lesion Neuro: Normal speech, Normal tone, Sensation intact, Cranial nerves 3-12 NL, Reflexes 2+, Other (Generalized weakness) Psych/Mental Status: Mental status NL, Mood NL Labs/Xrays Labs Test 07/06/24 21:10 07/06/24 20:11 07/06/24 18:30 07/06/24 18:21 Range/Units Troponin I High Sensitivity < 3 L </=34 ng/L Lactic Acid Level 1.5 0.4-2.0 mmol/L Stool Occult Blood Positive Negative Stool Occult Blood Sample #3 Negative Stool for White Cells Few White Blood Count 3.7 L 4.4-10.8 10^3/uL Red Blood Count 2.59 L 4.0-5.20 10^6/uL Hemoglobin 7.3 L 12.2-16.2 g/dL Hematocrit 22.9 L 36.0-46.0 % Mean Corpuscular Volume 88.4 80.0-100.0 fL Mean Corpuscular Hemoglobin 28.2 28.0-32.0 pg Mean Corpuscular Hemoglobin Concent 31.9 L 32.0-36.0 g/dL Red Cell Distribution Width 18.5 H 11.8-14.3 % Platelet Count 84 L 140-450 10^3/uL Mean Platelet Volume 8.2 6.9-10.8 fL Neutrophils (%) (Auto) 37.0-80.0 % Lymphocytes (%) (Auto) 10.0-50.0 % Monocytes (%) (Auto) 0.0-12.0 % Basophils (%) (Auto) 0.0-2.0 % Neutrophils # (Auto) 1.6-8.6 10 ^3/uL Lymphocytes # (Auto) 0.4-5.4 10 ^3/uL Monocytes # (Auto) 0-1.3 10 ^3/uL Differential Total Cells Counted 100.0 100 Neutrophils % (Manual) 68 37.0-80.0 Band Neutrophils % (Manual) 0 Lymphocytes % (Manual) 25 10.0-50.0 Monocytes % (Manual) 6 0-12 Eosinophils % (Manual) 1 0-7 Basophils % (Manual) 0 0.0-2.0 Metamyelocytes % (manual) 0 Myelocytes % (Manual) 0 Promyelocytes % (Manual) 0 Blast Cells % (Manual) 0 Reactive Lymphocytes 0 Platelet Estimate Decreased Sodium Level 127 L 136-145 mmol/L Potassium Level 3.3 L 3.5-5.1 mmol/L Chloride Level 100 98-107 mmol/L Carbon Dioxide Level 13 L 20-31 mmol/L Anion Gap 14 5-15 Blood Urea Nitrogen 13 9-23 mg/dL Creatinine 0.38 L 0.550-1.02 mg/dL Glomerular Filtration Rate Calc 139 >90 mL/min BUN/Creatinine Ratio 34.2 H 10.0-20.0 Serum Glucose 69 L 74-106 mg/dL Calcium Level 6.6 L 8.7-10.4 mg/dL Magnesium Level 1.8 1.6-2.6 mg/dL Total Bilirubin 0.5 0.2-1.0 mg/dL Aspartate Amino Transferase (AST) 22 13-40 U/L Alanine Aminotransferase (ALT) < 9 7-40 U/L Alkaline Phosphatase 54 46-116 U/L B-Type Natriuretic Peptide 28.03 0-100 pg/mL Total Protein 5.3 L 5.7-8.2 g/dL Albumin 1.6 L 3.2-4.8 g/dL Lipase 20 12-53 U/L PATIENT: CAROLYN SIMMONS ACCT: [id number] UNIT: [id number] : 1995 LOC: OVERFLOW ROOM / BED: [address] [place] [address] AGE / SEX: 28 / F ADM STATUS: ADM IN SERVICE 0924 ORDERING PHYSICIAN: KEEGAN FINE DO PROCEDURE(s): ABPL - CT AB PEL WO CON-NO ORAL OR IV REASON: weak, tachy, cp, sob, melena ORDER NUMBER(s): [id number], ACCESSION NUMBER(s): [id number] Exam: CT CT AB PEL WO CON-NO ORAL OR IV History: weak, tachy, cp, sob, melena Comparison Study: CT CT AB PEL WO CON-NO ORAL OR IV on DOS: 04/25/24, CT CT AB PEL WO CON-NO ORAL OR IV on DOS: 01/03/24 TECHNIQUE: Multidetector CT of the abdomen was performed from lung bases to pubic symphysis. Imaging was performed without IV contrast. Axial, coronal and sagittal multiplanar reformats were obtained from the axial data set by the technologist. Radiation Dose Information: CT Dose: CTDI volume is 6.43 mGy. Dose-length product is 385.05 mGy*cm FINDINGS: Evaluation of solid organs is limited due to lack of intravenous contrast use. Findings: Lung Bases: No acute or significant lung base finding. Normal heart size. No pleural or pericardial effusion. Liver: The liver is normal in size. No focal lesions. Gallbladder and Biliary Tree: Gallbladder has been surgically removed Spleen: Large measures 20 cm Pancreas: The pancreas is grossly normal in appearance. Adrenal Glands: Unremarkable Kidneys: Kidneys are grossly normal without calculi or hydronephrosis. Bladder: Grossly unremarkable for degree of distention. Bowel: The stomach is grossly normal in appearance. Small bowel and colon are normal in caliber and distribution. The appendix is not visualized; however, no secondary findings of acute appendicitis identified. Ascites: Absent Lymphadenopathy: Questionable pericaval periaortic adenopathy recommend IV contrast oral contrast possible. Abdominal Wall and Mesentery: Unremarkable. Vasculature: The visualized abdominal aorta is normal in size and caliber. Evaluation of abdominal and pelvic vessels is limited due to lack of intravenous contrast. Pelvic Organs: IUD in the uterus Musculoskeletal: No aggressive focal bony lesions, acute fractures or dislocation. Soft tissues: Unremarkable IMPRESSION: 1. Splenomegaly measuring 20 cm 2. Questionable pericaval and periaortic adenopathy this is difficult to visualize since there is no oral or IV contrast. Consider repeat study with oral and 90 contrast if possible. 3. IUD in the uterus. 4. Gallbladder has been surgically removed. ORDERING PHYSICIAN: KEEGAN FINE DO PROCEDURE(s): CXRP - CHEST PORTABLE REASON: weak, tachy, cp, sob, melena ORDER NUMBER(s): [id number], ACCESSION NUMBER(s): [id number] CHEST RADIOGRAPH Indication: weak, tachy, cp, sob, melena Technique: Single frontal view of the chest was obtained COMPARISON: XY CHEST PORTABLE on DOS: 05/01/24 FINDINGS: Lines and Tubes: None Lungs: Clear Pleura: No effusion. No pneumothorax. Cardiomediastinal contours: Unremarkable IMPRESSION: No abnormality demonstrated. Assessment/Plan Assessment/Plan Generalized weakness Chest pain Pancytopenia Electrolyte imbalance Dyspnea Anemia, unspecified Tachycardia HIV (human immunodeficiency virus infection) Plan 1. Admit to telemetry unit 2. Breathing treatment 3. Pain control management 4. Management of fluids and electrolytes 5. Consultation for hospitalist 6. Diagnostic tests chest x-ray 7. DVT prophylaxis-on SCDs 8. Repeat labs CBC, CMP in a.m. 9. Continue with current medical management 10. Treatment plan discussed with patient and RN. Patient verbalized understanding. Plan discussed with: Patient, Other (RN) My Orders Orders - FELECIA FORMAN DNP Procedure Category Date Status Time Pantoprazole PHA 07/07/24 In Process (Protonix) 10:00 * Infectious Janet- CONS 07/06/24 Transmitted Amrita 20:14 D5w/Sod Chlo 0.9% PHA 07/06/24 In Process (D5w Ns 0.9%) 20:15 * Hematology/Oncology CONS 07/06/24 Transmitted Consult 20:14 Allergies ARISTEO 07/06/24 In Process 20:14 Code Status CODE 07/06/24 Transmitted 20:14 2 Gm Sodium Diet DIET 07/07/24 Transmitted Breakfast Oxygen Per Hour RT 07/06/24 Transmitted 20:14 Hydrocodone-Acet PHA 07/06/24 In Process 5/325mg Tab (Kell 20:15 Ondansetron Hcl PHA 07/06/24 In Process (Zofran) 20:15 Docusate Sodium PHA 07/06/24 In Process Capsule (Colace 20:15 Multiple Vitamin PHA 07/07/24 In Process Tablet (Mvi Tab) 10:00 Fall Risk Precautions ARISTEO 07/06/[address] 20:14 Complete Blood Count LAB 07/07/24 Verified 04:00 Comprehensive LAB 07/07/24 Verified Metabolic Panel 04:00 Condition: Serious ARISTEO 07/06/24 In Process 20:14 Acetaminophen Tablet PHA 07/06/24 In Process (Tylenol Tablet) 20:15 Maintain Bed Rest ARISTEO 07/06/24 In Process 20:14 Sequential ARISTEO 07/06/24 In Process Compression Device Sulfamethoxazole PHA 07/07/24 In Process W/Trimeth Tab (Bactrim 10:00 Problem List: (1) Generalized weakness (2) Chest pain (3) Pancytopenia (4) Anemia, unspecified (5) Dyspnea (6) Tachycardia (7) Electrolyte imbalance (8) HIV (human immunodeficiency virus infection) Date of Service: July 06, 2024 Billing Provider: FELECIA FORMAN DNP Common Visit Codes: [id number] INP/OBS CARE (HIGH) FELECIA FORMAN DNP July 06, 2024 21:52
[2024-07-06 22:41] LABS: Hemoglobin 6.7 g/dL (12.2-16.2)
[2024-07-06 22:52] VITALS: BP 91/51; PULSE 105; RESP 20; TEMP 98.3
--- NOTE | 2024-07-06 22:57 | DVH ---
Exam: CT CT AB PEL WO CON-NO ORAL OR IV History: weak, tachy, cp, sob, melena Comparison Study: CT CT AB PEL WO CON-NO ORAL OR IV on DOS: 04/25/24, CT CT AB PEL WO CON-NO ORAL OR I V on DOS: 01/03/24 TECHNIQUE: Multidetector CT of the abdomen was performed from lung bases to pubic symphysis. Imaging was performed without IV contrast. Axial, coronal and sagittal multiplanar reformats were obtained fr om the axial data set by the technologist. Radiation Dose Information: CT Dose: CTDI volume is 6.43 mGy. Dose-length product is 385.05 mGy*cm FINDINGS: Evaluation of solid organs is limited due to lack of intravenous contrast use. Findings: Lung Bases: No acute or significant lung base finding. Normal heart size. No pleural or pericardial effusion. Liver: The liver is normal in size. No focal lesions. Gallbladder and Biliary Tree: Gallbladder has been surgically removed Spleen: Large measures 20 cm Pancreas: The pancreas is grossly normal in appearance. Adrenal Glands: Unremarkable Kidneys: Kidneys are grossly normal without calculi or hydronephrosis. Bladder: Grossly unremarkable for degree of distention. Bowel: The stomach is grossly normal in appearance. Small bowel and colon are normal in caliber and d istribution. The appendix is not visualized; however, no secondary findings of acute appendicitis id entified. Ascites: Absent Lymphadenopathy: Questionable pericaval periaortic adenopathy recommend IV contrast oral contrast pos sible. Abdominal Wall and Mesentery: Unremarkable. Vasculature: The visualized abdominal aorta is normal in size and caliber. Evaluation of abdominal a nd pelvic vessels is limited due to lack of intravenous contrast. Pelvic Organs: IUD in the uterus Musculoskeletal: No aggressive focal bony lesions, acute fractures or dislocation. Soft tissues: Unremarkable IMPRESSION: 1. Splenomegaly measuring 20 cm 2. Questionable pericaval and periaortic adenopathy this is difficult to visualize since there is no oral or IV contrast. Consider repeat study with oral and 90 contrast if possible. 3. IUD in the uterus. 4. Gallbladder has been surgically removed. Radiation optimization: All CT scans at this facility use at least one of these dose optimization jarad hniques: automated exposure control mA and/or kV adjustment per patient size (includes targeted exam s where dose is matched to clinical indication) or iterative reconstruction.
[2024-07-06 23:07] VITALS: BP 93/54; PULSE 104; RESP 27; TEMP 98
[2024-07-07] VITALS (29 sets, daily range): BP systolic 77–112; BP diastolic 34–74; PULSE 80–109; RESP 16–27; TEMP 97.9–98.2; O2SAT 98–100
[2024-07-07] MEDS: MIDODRINE HCL 10 MG TAB PO SCH (02:56)
[2024-07-07] MEDS: HYDROcodone-ACET 5/325MG TAB PO PRN (03:08)
[2024-07-07] MEDS: ACETAMINOPHEN 325 MG TAB PO PRN (03:09)
[2024-07-07] MEDS: AZITHROMYCIN 500MG/ 250ML 250 ML IV ONE (03:18)
[2024-07-07] MEDS: CALCIUM GLUC 1,000mg/50ml-NS 50 ML IV SCH (03:18)
[2024-07-07] MEDS: NOREPINEPHRINE 8 MG/250ML KIT 250 ML IV SCH (03:46)
[2024-07-07] MEDS: NOREPINEPHRINE 8 MG/250ML KIT 250 ML IV ONE (03:47)
--- NOTE | 2024-07-07 04:53 | DVHNC2 ---
Central Line Recorder of insertion practice: Boil Off Machine Operator Cloth Occupation of lathe set up operator: Attending Physician Indication: Inability to obtain IV Room prepared for procedure: Yes Boil Off Machine Operator Cloth performed hand hygien: Yes Maximal sterile barrier precau: Mask/Eye shield, Sterile gown, Cap, Sterlie gloves, Large sterlie drape Skin Preparation: Chlorhexidine gluconate Skin preparation completely dr: Yes Insertion site: Left, Femoral Central line catheter type: [id number] dialysis Number of lumens: 3 Central line exchanged over a: No Antiseptic ointment applied to: Yes Post Assessment: Proper placement Informed consent obtained: Yes Risks/benefits/alt described: Yes Date of Service: July 07, 2024 Billing Provider: RICO NICHOLE MD Common Visit Codes: PROCEDURE ONLY Procedure Codes: [id number] NON-TUNNEL CV CATH EPIFANIO AVALOS RESIDENT July 07, 2024 04:53
[2024-07-07] MEDS: PROCHLORPERAZINE EDISYLATE 5 MG/ML 2ML VIAL IV PRN (05:45)
[2024-07-07 06:04] LABS: Anion Gap 13 (5-15); Aspartate Aminotransferase 15 U/L (13-40); BUN/Creatinine Ratio 35.5 (10.0-20.0); Bilirubin, Total 0.8 mg/dL (0.2-1.0); Blood Urea Nitrogen 11 mg/dL (9-23); Chloride 104 mmol/L (98-107)
[2024-07-07 06:06] LABS: Alanine Aminotransferase < 9 U/L (7-40); Albumin 1.8 g/dL (3.2-4.8); Alkaline Phosphatase 45 U/L (46-116); Calcium 7.2 mg/dL (8.7-10.4); Carbon Dioxide 12 mmol/L (20-31); Glucose 74 mg/dL (74-106); Sodium 129 mmol/L (136-145)
[2024-07-07 06:16] LABS: Basophils # (auto) 0 10 ^3/uL (0-0.2); Basophils % (auto) 0.1 % (0.0-2.0); Eosinophils # (auto) 0 10 ^3/uL (0-0.8); Eosinophils % (auto) 0.5 % (0.0-7.0); Hematocrit 27.9 % (36.0-46.0); Hemoglobin 8.9 g/dL (12.2-16.2); Lymphocytes # (auto) 0.7 10 ^3/uL (0.4-5.4); Lymphocytes % (auto) 24.1 % (10.0-50.0); Mean Corpuscular Hemoglobin 27.8 pg (28.0-32.0); Mean Corpuscular Hgb Conc. 31.8 g/dL (32.0-36.0); Mean Corpuscular Volume 87.6 fL (80.0-100.0); Monocytes # (auto) 0.2 10 ^3/uL (0-1.3); Monocytes % (auto) 5.6 % (0.0-12.0); Neutrophils % (auto) 69.7 % (37.0-80.0); Nucleated Red Blood Cells % 0.5 %; Platelet Count (auto) 76 10^3/uL (140-450); Red Blood Cells 3.18 10^6/uL (4.0-5.20); Red Cell Distribution Width 17.9 % (11.8-14.3); White Blood Cell 2.9 10^3/uL (4.4-10.8)
[2024-07-07] MEDS ORDERED: MORPHINE SULFATE INJ 2 MG/ml SYRG IV PRN (06:45)
[2024-07-07] MEDS: MORPHINE SULFATE 4 MG/ML SYR/VIAL ONE (06:50)
[2024-07-07] MEDS: MULTIPLE VITAMIN TAB PO SCH (09:43)
[2024-07-07] MEDS: SULFAMETHOX W/TRIMETH(800/160MG) DS TAB PO SCH (09:43)
[2024-07-07] MEDS: PANTOPRAZOLE 40 MG/10 ML VIAL INJ IV SCH (09:44)
[2024-07-07 09:56] LABS: Urine Bacteria FEW /hpf (None Seen); Urine Blood Negative /uL (Negative); Urine Budding Yeast OCCASIONAL /hpf (None Seen); Urine Color Light-Yellow (Yellow); Urine Hyaline Cast FEW /lpf (0 - 2); Urine Hyphae Yeast PRESENT /hpf; Urine Protein, UAD TRACE (Negative); Urine Squamous Epithelial Cell FEW /hpf (<5); Urine Urobilinogen Normal (Negative); Urine WBC 6 /HPF (0-5)
[2024-07-07 09:57] LABS: Urine Clarity Hazy (Clear)
[2024-07-07] MEDS: D5W/SOD CHL 0.9%/KCL 40MEQ 1,000 ML IV SCH (14:17)
--- NOTE | 2024-07-07 15:58 | DVHPN2 ---
Subjective Patient reports having multiple bowel movements and generalized weakness. Reviewed: Care Plan, H&P, Labs, Medications Changes from previous H/P or p: No Changes General: Per HPI Eyes: No Pain, No Vision change, No Conjunctivae inflammation, No Eyelid inflammation, No Other, No Redness ENT: No Ear pain, No Ear discharge, No Nose pain, No Nose discharge, No Nose congestion, No Mouth pain, No Mouth swelling, No Throat pain, No Throat swelling, No Other Cardiovascular: No Chest Pain, No Palpitations, No Orthopnea, No Paroxysmal Noc. Dyspnea, No Edema, No Lt Headedness, No Other Respiratory: No Cough, No Dry; Shortness of breath; No SOB with excertion, No Wheezing, No Hemoptysis, No Pleuritic Pain, No Sputum, No Other Gastrointestinal: No Nausea, No Vomiting, No Abdominal Pain, No Diarrhea, No Constipation, No Melena, No Hematochezia, No Other Genitourinary: No Dysuria, No Frequency, No Incontinence, No Hematuria, No Retention, No Other Musculoskeletal: No other, No neck pain, No shoulder pain, No arm pain, No back pain, No hand pain, No leg pain, No foot pain Skin: No Rash, No Lesions, No Jaundice, No Bruising, No Other Objective Vitals Vital Signs Date Time Temp Pulse Resp B/P (MAP) Pulse Ox O2 Delivery O2 Flow Rate FiO2 07/07/24 07:00 104 19 107/62 (77) 99 07/07/24 02:32 98.2 98.2 07/06/24 19:45 Nasal Cannula* 2 28 Intake/Output Intake and Output 07/07/24 07:00 Intake Total 3300 ml Output Total 1200 ml Balance 2100 ml Intake Oral 900 ml Blood Product 1500 ml Other 900 ml Output Stool Total 1200 ml # Bowel Movements 4 General Appearance: Alert, Oriented X3, Cooperative, mild distress HEENT: Atraumatic, PERRLA Lungs: Clear to auscultation, Normal air movement Cardiovascular: Normal S1, Normal S2 Musculoskeletal: Normal sensory function, Normal motor function Neuro: Normal speech Skin: Dry, Intact Psych/Mental Status: Mental status NL, Mood NL Medications Current Medications Medications Dose Ordered Sig/Era Route Start Time Stop Time Status Last Admin Dose Admin Pantoprazole Sodium 40 mg DAILY IV 07/07/24 10:00 07/07/24 09:44 40 MG Acetaminophen/ Hydrocodone Bitart 1 tab Q4HP PRN PO 07/06/24 20:15 07/07/24 03:08 1 TAB Docusate Sodium 100 mg BIDPRN PRN PO 07/06/24 20:15 Multivitamins 1 tab DAILY PO 07/07/24 10:00 07/07/24 09:43 1 TAB Acetaminophen 650 mg Q6HP PRN PO 07/06/24 20:15 07/07/24 03:09 650 MG Trimethoprim/ Sulfamethoxazole 1 tab Q12HR PO 07/07/24 10:00 07/07/24 09:43 1 TAB Prochlorperazine Edisylate 5 mg Q4HPRN PRN IV 07/06/24 21:45 07/07/24 05:45 5 MG Nitroglycerin 0.4 mg Q5MINP PRN SL 07/06/24 21:45 Morphine Sulfate 2 mg Q30M PRN IV 07/06/24 21:45 Cancel Midodrine 10 mg TID@0600,1200,1800 PO 07/07/24 02:45 07/07/24 12:29 10 MG Norepinephrine Bitartrate 250 ml @ 3.75 mls/hr Q24H IV 07/07/24 03:30 07/07/24 03:46 3.75 MLS/HR Morphine Sulfate 2 mg Q30MIN PRN IV 07/07/24 06:45 Potassium Chloride/Dextrose/ Sod Cl 1,000 ml @ 100 mls/hr Q10H IV 07/07/24 14:00 07/07/24 14:17 100 MLS/HR Laboratory Results Laboratory Tests 07/07/24 04:54 Chemistry Test 07/06/24 18:21 07/07/24 04:54 Albumin 1.6 g/dL (3.2-4.8) L 1.8 g/dL (3.2-4.8) L Calcium Level 6.6 mg/dL (8.7-10.4) L 7.2 mg/dL (8.7-10.4) L Magnesium Level 1.8 mg/dL (1.6-2.6) Total Protein 5.3 g/dL (5.7-8.2) L 5.0 g/dL (5.7-8.2) L Lipid panel Test 07/06/24 18:21 Lipase 20 U/L (12-53) Cardiac Markers Test 07/06/24 18:21 B-Type Natriuretic Peptide 28.03 pg/mL (0-100) LFT Test 07/06/24 18:21 07/07/24 04:54 Alanine Aminotransferase (ALT) < 9 U/L (7-40) < 9 U/L (7-40) Alkaline Phosphatase 54 U/L (46-116) 45 U/L (46-116) L Aspartate Amino Transferase (AST) 22 U/L (13-40) 15 U/L (13-40) Total Bilirubin 0.5 mg/dL (0.2-1.0) 0.8 mg/dL (0.2-1.0) Urinalysis Test 07/07/24 09:40 Urine Color Light-yellow (Yellow) Urine Clarity Hazy (Clear) H Urine pH 6.0 (5.0-9.0) Urine Specific Nelson 1.010 (1.001-1.035) Urine Protein Trace (Negative) H Urine Ketones Negative (Negative) Urine Blood Negative /uL (Negative) Urine Nitrite Negative (Negative) Urine Bilirubin Negative (Negative) Urine Urobilinogen Normal mg/dL (Negative) Urine Leukocyte Esterase 2+ /uL (Negative) Urine RBC 2 /hpf (0 - 4) Urine Microscopic WBC 6 /HPF (0-5) H Urine Squamous Epithelial Cells Few /hpf (<5) Urine Bacteria Few /hpf (None Seen) H Urine Hyaline Casts Few /lpf (0 - 2) Urine Yeast with Hyphae Present /hpf Urine Yeast (Budding) Occasional /hpf (None Urine Glucose Normal mg/dL (Normal) Labs and/or images reviewed: Labs reviewed by me, Image(s) reviewed by me Assessment/Plan Assessment/Plan Impression: -septic shock -severe hypovolemia -rule out colitis -anemia, rule out GI bleed -HIV -MAC -cachexia -hyponatremia Plan: -continue volume resuscitation -vasopressor therapy -continue Bactrim, add Flagyl -electrolyte replacement -infectious disease consultation -PRBC transfusion to keep hemoglobin greater than seven -repeat labs in a.m. Critical care time spent with patient discussing and formulating plan of care: 40 minutes. This does not include time spent performing procedures. This medical document was created using an electronic medical record system with Dragon computerized dictation system. Although this document has been carefully reviewed, there may still be some phonetic and typographical errors. These areas are purely typographical due to imperfections of the software programs, and do not reflect any compromise in the patient's medical care. Plan discussed with: Patient, Other (RN) My Orders Orders - RACHEL CARLSON NP Procedure Category Date Status Time * Infectious Janet- CONS 07/07/24 Transmitted K Jose 13:54 D5w/Sod Chl 0.9%/Kcl PHA 07/07/24 In Process 40meq 14:00 Complete Blood Count LAB 07/08/24 Verified 04:00 Basic Metabolic Panel LAB 07/08/24 Verified 04:00 Date of Service: Jul 08, 2024 Billing Provider: RACHEL CARLSON NP Common Visit Codes: [id number] CARE 30-74 MIN RACHEL CARLSON NP July 07, 2024 15:58
[2024-07-08] VITALS (48 sets, daily range): BP systolic 83–117; BP diastolic 48–81; PULSE 82–141; RESP 18–32; TEMP 97.8–98.4; O2SAT 94–100
[2024-07-08 04:28] LABS: Basophils # (auto) 0 10 ^3/uL (0-0.2); Eosinophils # (auto) 0 10 ^3/uL (0-0.8); Hemoglobin 11.1 g/dL (12.2-16.2); Lymphocytes # (auto) 1.4 10 ^3/uL (0.4-5.4); Monocytes # (auto) 0.3 10 ^3/uL (0-1.3); White Blood Cell 3.9 10^3/uL (4.4-10.8)
[2024-07-08 04:32] LABS: Basophils % (auto) 0.3 % (0.0-2.0); Eosinophils % (auto) 0.2 % (0.0-7.0); Hematocrit 34.6 % (36.0-46.0); Lymphocytes % (auto) 36.7 % (10.0-50.0); Mean Corpuscular Hemoglobin 27.8 pg (28.0-32.0); Mean Corpuscular Volume 86.6 fL (80.0-100.0); Monocytes % (auto) 7.3 % (0.0-12.0); Neutrophils # (auto) 2.1 10 ^3/uL (1.6-8.6); Neutrophils % (auto) 55.5 % (37.0-80.0); Nucleated Red Blood Cells % 0.4 %; Platelet Count (auto) 60 10^3/uL (140-450); Red Blood Cells 3.99 10^6/uL (4.0-5.20); Red Cell Distribution Width 18.1 % (11.8-14.3)
[2024-07-08 04:41] LABS: Chloride 106 mmol/L (98-107); Potassium 3.8 mmol/L (3.5-5.1)
[2024-07-08 04:42] LABS: Anion Gap 14 (5-15)
[2024-07-08 04:47] LABS: BUN/Creatinine Ratio 29.2 (10.0-20.0)
[2024-07-08 04:51] LABS: Blood Urea Nitrogen 7 mg/dL (9-23); Calcium 6.3 mg/dL (8.7-10.4); Carbon Dioxide 11 mmol/L (20-31); Glucose 106 mg/dL (74-106); Sodium 131 mmol/L (136-145)
[2024-07-08] MEDS: FLORASTOR (S. BOULARDII) 250 MG CAP PO SCH (09:17)
[2024-07-08] MEDS: SODIUM CHLORIDE 0.9% 500 ML IV ONE (09:18)
[2024-07-08 09:40] LABS: Erythrocyte Sedimentation Rate 9 mm/hr (0-20)
[2024-07-08] MEDS: metroNIDAZOLE 500MG/100ML 100 ML IV SCH (14:17)
[2024-07-08] MEDS: MORPHINE SULFATE 4 MG/ML SYR/VIAL IV PRN (15:51)
[2024-07-08] MEDS: MAGIC MOUTHWASH 55 ML SUSP MT SCH (18:08)
[2024-07-08] MEDS: NYSTATIN (MOUTH-THROAT) 500,000 UNITS/5 ML SUSP MT SCH (18:08)
[2024-07-08] MEDS: LOPERAMIDE HCL 2 MG CAP/TAB PO PRN (22:40)
[2024-07-09] VITALS (96 sets, daily range): BP systolic 80–107; BP diastolic 43–71; PULSE 89–132; RESP 17–40; TEMP 97.8–99.1; O2SAT 97–100
[2024-07-09] MEDS: LORazepam 2MG/ML-1ML VIAL IV PRN (03:06)
[2024-07-09 05:56] LABS: Potassium 4.7 mmol/L (3.5-5.1)
[2024-07-09 05:57] LABS: Anion Gap 11 (5-15)
[2024-07-09 06:02] LABS: BUN/Creatinine Ratio 26.1 (10.0-20.0); Glucose 76 mg/dL (74-106)
[2024-07-09 06:06] LABS: Blood Urea Nitrogen 6 mg/dL (9-23); Carbon Dioxide 11 mmol/L (20-31); Chloride 109 mmol/L (98-107); Sodium 131 mmol/L (136-145)
[2024-07-09 06:07] LABS: Calcium 6.7 mg/dL (8.7-10.4)
[2024-07-09 06:13] LABS: Mean Corpuscular Hemoglobin 28.2 pg (28.0-32.0)
[2024-07-09 06:15] LABS: Hematocrit 31.2 % (36.0-46.0); Mean Corpuscular Hgb Conc. 32.1 g/dL (32.0-36.0); Mean Corpuscular Volume 88.1 fL (80.0-100.0); Platelet Count (auto) 55 10^3/uL (140-450); Red Blood Cells 3.54 10^6/uL (4.0-5.20); Red Cell Distribution Width 18.4 % (11.8-14.3); White Blood Cell 4.4 10^3/uL (4.4-10.8)
[2024-07-09 06:23] LABS: Band Neutrophils % (manual) 0; Basophils % (manual) 0 (0.0-2.0); Blast Cells 0; Eosinophils % (manual) 0 (0-7); Metamyelocytes % 0; Myelocytes % 0; Promyelocytes % 0; Reactive Lymphocytes 0
[2024-07-09 07:21] LABS: Lymphocytes % (manual) 37 (10.0-50.0); Monocytes % (manual) 13 (0-12)
[2024-07-09 07:24] LABS: Platelet Estimate Decreased
[2024-07-09] MEDS ORDERED: SODIUM BICARB 50mEq/50ml Vial 100 ML in D5W 5% 1,000 ML IV SCH (08:15)
[2024-07-09] MEDS: SODIUM BICARB 50mEq/50ml Vial 50 ML in SOD CHL 0.45% 1,000 ML IV SCH (09:20)
[2024-07-09] MEDS: SODIUM BICARB 8.4% 50Meq/50ml SYR Vial IV ONE (09:43)
--- NOTE | 2024-07-09 11:34 | DVHPN2 ---
Subjective Patient reports having multiple bowel movements and generalized weakness. Reviewed: Care Plan, H&P, Labs, Medications Changes from previous H/P or p: No Changes General: Per HPI Eyes: No Pain, No Vision change, No Conjunctivae inflammation, No Eyelid inflammation, No Other, No Redness ENT: No Ear pain, No Ear discharge, No Nose pain, No Nose discharge, No Nose congestion, No Mouth pain, No Mouth swelling, No Throat pain, No Throat swelling, No Other Cardiovascular: No Chest Pain, No Palpitations, No Orthopnea, No Paroxysmal Noc. Dyspnea, No Edema, No Lt Headedness, No Other Respiratory: No Cough, No Dry; Shortness of breath; No SOB with excertion, No Wheezing, No Hemoptysis, No Pleuritic Pain, No Sputum, No Other Gastrointestinal: No Nausea, No Vomiting, No Abdominal Pain, No Diarrhea, No Constipation, No Melena, No Hematochezia, No Other Genitourinary: No Dysuria, No Frequency, No Incontinence, No Hematuria, No Retention, No Other Musculoskeletal: No other, No neck pain, No shoulder pain, No arm pain, No back pain, No hand pain, No leg pain, No foot pain Skin: No Rash, No Lesions, No Jaundice, No Bruising, No Other Objective Vitals Vital Signs Date Time Temp Pulse Resp B/P (MAP) Pulse Ox O2 Delivery O2 Flow Rate FiO2 07/09/24 11:00 92/46 07/09/24 11:00 108 23 100 07/09/24 10:30 Nasal Cannula* 2 28 07/09/24 08:00 98.2 98.2 Intake/Output Intake and Output 07/09/24 07:00 Intake Total 4203.75 ml Output Total 157 ml Balance 4046.75 ml Intake Oral 750 ml IV Total 3453.75 ml Output Stool Total 150 ml Urine/Stool Mix 7 ml # Voids 7 # Bowel Movements 7 General Appearance: Alert, Oriented X3, Cooperative, mild distress HEENT: Atraumatic, PERRLA Lungs: Clear to auscultation, Normal air movement Cardiovascular: Normal S1, Normal S2 Musculoskeletal: Normal sensory function, Normal motor function Neuro: Normal speech Skin: Dry, Intact Psych/Mental Status: Mental status NL, Mood NL Medications Current Medications Medications Dose Ordered Sig/Era Route Start Time Stop Time Status Last Admin Dose Admin Pantoprazole Sodium 40 mg DAILY IV 07/07/24 10:00 07/09/24 09:43 40 MG Acetaminophen/ Hydrocodone Bitart 1 tab Q4HP PRN PO 07/06/24 20:15 07/09/24 09:43 1 TAB Docusate Sodium 100 mg BIDPRN PRN PO 07/06/24 20:15 Multivitamins 1 tab DAILY PO 07/07/24 10:00 07/08/24 09:16 1 TAB Acetaminophen 650 mg Q6HP PRN PO 07/06/24 20:15 07/08/24 06:21 650 MG Trimethoprim/ Sulfamethoxazole 1 tab Q12HR PO 07/07/24 10:00 07/09/24 09:43 1 TAB Prochlorperazine Edisylate 5 mg Q4HPRN PRN IV 07/06/24 21:45 07/08/24 18:10 5 MG Nitroglycerin 0.4 mg Q5MINP PRN SL 07/06/24 21:45 Morphine Sulfate 2 mg Q30M PRN IV 07/06/24 21:45 Cancel Midodrine 10 mg TID@0600,1200,1800 PO 07/07/24 02:45 07/09/24 04:26 10 MG Norepinephrine Bitartrate 250 ml @ 3.75 mls/hr Q24H IV 07/07/24 03:30 07/08/24 17:41 15 MLS/HR Morphine Sulfate 2 mg Q30MIN PRN IV 07/07/24 06:45 Cancel Loperamide HCl 2 mg PRN PRN PO 07/08/24 08:45 07/09/24 03:05 2 MG Metronidazole 100 ml @ 100 mls/hr Q8HR IV 07/08/24 14:00 07/09/24 04:22 100 MLS/HR Saccharomyces Boulardii 250 mg DAILY PO 07/08/24 10:00 07/09/24 09:44 250 MG Morphine Sulfate 2 mg Q30M PRN IV 07/08/24 09:15 07/08/24 15:51 2 MG Al Hydrox/Mg Hydrox/Simethicone 5 ml QID MT 07/08/24 18:00 07/09/24 06:00 5 ML Nystatin 5 ml QID MT 07/08/24 18:00 07/09/24 04:22 5 ML Lorazepam 0.5 mg Q6HP PRN IV 07/09/24 02:30 07/09/24 03:06 0.5 MG Cholestyramine Resin 4 gm DAILY@11 PO 07/09/24 11:00 Sodium Bicarbonate 50 ml/ Sodium Chloride 1,050 ml @ 100 mls/hr [id number] IV 07/09/24 08:45 07/09/24 09:20 100 MLS/HR Laboratory Results Laboratory Tests 07/09/24 05:00 Chemistry Test 07/09/24 05:00 Calcium Level 6.7 mg/dL (8.7-10.4) L Urinalysis Test 07/07/24 09:40 Urine Color Light-yellow (Yellow) Urine Clarity Hazy (Clear) H Urine pH 6.0 (5.0-9.0) Urine Specific [place] 1.010 (1.001-1.035) Urine Protein Trace (Negative) H Urine Ketones Negative (Negative) Urine Blood Negative /uL (Negative) Urine Nitrite Negative (Negative) Urine Bilirubin Negative (Negative) Urine Urobilinogen Normal mg/dL (Negative) Urine Leukocyte Esterase 2+ /uL (Negative) Urine RBC 2 /hpf (0 - 4) Urine Microscopic WBC 6 /HPF (0-5) H Urine Squamous Epithelial Cells Few /hpf (<5) Urine Bacteria Few /hpf (None Seen) H Urine Hyaline Casts Few /lpf (0 - 2) Urine Yeast with Hyphae Present /hpf Urine Yeast (Budding) Occasional /hpf (None Urine Glucose Normal mg/dL (Normal) Microbiology Microbiology Date/Time Source Procedure Growth Status 07/08/24 04:15 Nose MRSA Screen - Final Complete 07/06/24 18:21 Blood Blood Culture - Preliminary NO GROWTH AFTER 48 HOURS OF INCUBATION. Resulted Labs and/or images reviewed: Labs reviewed by me, Image(s) reviewed by me Assessment/Plan Assessment/Plan Impression: -septic shock -severe hypovolemia -rule out colitis -anemia, rule out GI bleed -HIV -MAC -cachexia -hyponatremia Plan: -continue volume resuscitation -check VBG -normal saline bolus -start loperamide four BMs -ID consultation pending -potassium replacement -Levophed to keep map greater than 65 mmHg -repeat stool for occult blood, C diff pending -vasopressor therapy -continue Bactrim, add Flagyl , Florastor -repeat labs in a.m. Critical care time spent with patient discussing and formulating plan of care: 40 minutes. This does not include time spent performing procedures. This medical document was created using an electronic medical record system with [employer] dictation system. Although this document has been carefully reviewed, there may still be some phonetic and typographical errors. These areas are purely typographical due to imperfections of the software programs, and do not reflect any compromise in the patient's medical care. Plan discussed with: Patient, Other (RN) My Orders Orders - RACHEL CARLSON NP Procedure Category Date Status Time Magic Mouthwash PHA 07/08/24 In Process Suspension (Majic 18:00 Nystatin PHA 07/08/24 In Process (Mouth-Throat) 18:00 * Wound Consult CONS 07/08/24 Transmitted Basic Metabolic Panel LAB 07/10/24 Verified 05:00 Basic Metabolic Panel LAB 07/11/24 Verified 05:00 Basic Metabolic Panel LAB 07/12/24 Verified 05:00 Complete Blood Count LAB 07/10/24 Verified 05:00 Complete Blood Count LAB 07/11/24 Verified 05:00 Complete Blood Count LAB 07/12/24 Verified 05:00 * Gi Dvh Large Animal Husbandry Technician CONS 07/09/24 Transmitted 08:37 Cholestyramine Powder PHA 07/09/24 In Process (Questran Powder) 11:00 Sod Chl 0.45% PHA 07/09/24 In Process (Sodi... W/Sodium 08:45 Venous Blood Gas RT 07/09/24 Logged 12:00 Date of Service: Jul 08, 2024 Billing Provider: RACHEL CARLSON NP Common Visit Codes: [id number] CARE 30-74 MIN RACHEL CARLSON NP Jul 09, 2024 11:34
--- NOTE | 2024-07-09 11:35 | DVHPN2 ---
Subjective Patient reports having multiple bowel movements and generalized weakness. Reviewed: Care Plan, H&P, Labs, Medications Changes from previous H/P or p: No Changes General: Per HPI Eyes: No Pain, No Vision change, No Conjunctivae inflammation, No Eyelid inflammation, No Other, No Redness ENT: No Ear pain, No Ear discharge, No Nose pain, No Nose discharge, No Nose congestion, No Mouth pain, No Mouth swelling, No Throat pain, No Throat swelling, No Other Cardiovascular: No Chest Pain, No Palpitations, No Orthopnea, No Paroxysmal Noc. Dyspnea, No Edema, No Lt Headedness, No Other Respiratory: No Cough, No Dry; Shortness of breath; No SOB with excertion, No Wheezing, No Hemoptysis, No Pleuritic Pain, No Sputum, No Other Gastrointestinal: No Nausea, No Vomiting, No Abdominal Pain, No Diarrhea, No Constipation, No Melena, No Hematochezia, No Other Genitourinary: No Dysuria, No Frequency, No Incontinence, No Hematuria, No Retention, No Other Musculoskeletal: No other, No neck pain, No shoulder pain, No arm pain, No back pain, No hand pain, No leg pain, No foot pain Skin: No Rash, No Lesions, No Jaundice, No Bruising, No Other Objective Vitals Vital Signs Date Time Temp Pulse Resp B/P (MAP) Pulse Ox O2 Delivery O2 Flow Rate FiO2 07/09/24 11:00 92/46 07/09/24 11:00 108 23 100 07/09/24 10:30 Nasal Cannula* 2 28 07/09/24 08:00 98.2 98.2 Intake/Output Intake and Output 07/09/24 07:00 Intake Total 4203.75 ml Output Total 157 ml Balance 4046.75 ml Intake Oral 750 ml IV Total 3453.75 ml Output Stool Total 150 ml Urine/Stool Mix 7 ml # Voids 7 # Bowel Movements 7 General Appearance: Alert, Oriented X3, Cooperative, mild distress HEENT: Atraumatic, PERRLA Lungs: Clear to auscultation, Normal air movement Cardiovascular: Normal S1, Normal S2 Musculoskeletal: Normal sensory function, Normal motor function Neuro: Normal speech Skin: Dry, Intact Psych/Mental Status: Mental status NL, Mood NL Medications Current Medications Medications Dose Ordered Sig/Era Route Start Time Stop Time Status Last Admin Dose Admin Pantoprazole Sodium 40 mg DAILY IV 07/07/24 10:00 07/09/24 09:43 40 MG Acetaminophen/ Hydrocodone Bitart 1 tab Q4HP PRN PO 07/06/24 20:15 07/09/24 09:43 1 TAB Docusate Sodium 100 mg BIDPRN PRN PO 07/06/24 20:15 Multivitamins 1 tab DAILY PO 07/07/24 10:00 07/08/24 09:16 1 TAB Acetaminophen 650 mg Q6HP PRN PO 07/06/24 20:15 07/08/24 06:21 650 MG Trimethoprim/ Sulfamethoxazole 1 tab Q12HR PO 07/07/24 10:00 07/09/24 09:43 1 TAB Prochlorperazine Edisylate 5 mg Q4HPRN PRN IV 07/06/24 21:45 07/08/24 18:10 5 MG Nitroglycerin 0.4 mg Q5MINP PRN SL 07/06/24 21:45 Morphine Sulfate 2 mg Q30M PRN IV 07/06/24 21:45 Cancel Midodrine 10 mg TID@0600,1200,1800 PO 07/07/24 02:45 07/09/24 04:26 10 MG Norepinephrine Bitartrate 250 ml @ 3.75 mls/hr Q24H IV 07/07/24 03:30 07/08/24 17:41 15 MLS/HR Morphine Sulfate 2 mg Q30MIN PRN IV 07/07/24 06:45 Cancel Loperamide HCl 2 mg PRN PRN PO 07/08/24 08:45 07/09/24 03:05 2 MG Metronidazole 100 ml @ 100 mls/hr Q8HR IV 07/08/24 14:00 07/09/24 04:22 100 MLS/HR Saccharomyces Boulardii 250 mg DAILY PO 07/08/24 10:00 07/09/24 09:44 250 MG Morphine Sulfate 2 mg Q30M PRN IV 07/08/24 09:15 07/08/24 15:51 2 MG Al Hydrox/Mg Hydrox/Simethicone 5 ml QID MT 07/08/24 18:00 07/09/24 06:00 5 ML Nystatin 5 ml QID MT 07/08/24 18:00 07/09/24 04:22 5 ML Lorazepam 0.5 mg Q6HP PRN IV 07/09/24 02:30 07/09/24 03:06 0.5 MG Cholestyramine Resin 4 gm DAILY@11 PO 07/09/24 11:00 Sodium Bicarbonate 50 ml/ Sodium Chloride 1,050 ml @ 100 mls/hr [id number] IV 07/09/24 08:45 07/09/24 09:20 100 MLS/HR Laboratory Results Laboratory Tests 07/09/24 05:00 Chemistry Test 07/09/24 05:00 Calcium Level 6.7 mg/dL (8.7-10.4) L Urinalysis Test 07/07/24 09:40 Urine Color Light-yellow (Yellow) Urine Clarity Hazy (Clear) H Urine pH 6.0 (5.0-9.0) Urine Specific [place] 1.010 (1.001-1.035) Urine Protein Trace (Negative) H Urine Ketones Negative (Negative) Urine Blood Negative /uL (Negative) Urine Nitrite Negative (Negative) Urine Bilirubin Negative (Negative) Urine Urobilinogen Normal mg/dL (Negative) Urine Leukocyte Esterase 2+ /uL (Negative) Urine RBC 2 /hpf (0 - 4) Urine Microscopic WBC 6 /HPF (0-5) H Urine Squamous Epithelial Cells Few /hpf (<5) Urine Bacteria Few /hpf (None Seen) H Urine Hyaline Casts Few /lpf (0 - 2) Urine Yeast with Hyphae Present /hpf Urine Yeast (Budding) Occasional /hpf (None Urine Glucose Normal mg/dL (Normal) Microbiology Microbiology Date/Time Source Procedure Growth Status 07/08/24 04:15 Nose MRSA Screen - Final Complete 07/06/24 18:21 Blood Blood Culture - Preliminary NO GROWTH AFTER 48 HOURS OF INCUBATION. Resulted Labs and/or images reviewed: Labs reviewed by me, Image(s) reviewed by me Assessment/Plan Assessment/Plan Impression: -septic shock -severe hypovolemia -rule out colitis -anemia, rule out GI bleed -HIV -MAC -cachexia -hyponatremia Plan: Events: Increased norepinephrine use. VBG with severe metabolic acidosis -IV push some bicarbonate, start drip -continue loperamide, add Questran -ID consultation pending -potassium replacement -Levophed to keep map greater than 65 mmHg -repeat stool for occult blood, C diff pending -vasopressor therapy -continue Bactrim, add Flagyl , Florastor -repeat labs in a.m. Critical care time spent with patient discussing and formulating plan of care: 40 minutes. This does not include time spent performing procedures. This medical document was created using an electronic medical record system with [employer] system. Although this document has been carefully reviewed, there may still be some phonetic and typographical errors. These areas are purely typographical due to imperfections of the software programs, and do not reflect any compromise in the patient's medical care. Plan discussed with: Patient, Other (RN) My Orders Orders - RACHEL CARLSON NP Procedure Category Date Status Time Magic Mouthwash PHA 07/08/24 In Process Suspension (Majic 18:00 Nystatin PHA 07/08/24 In Process (Mouth-Throat) 18:00 * Wound Consult CONS 07/08/24 Transmitted Basic Metabolic Panel LAB 07/10/24 Verified 05:00 Basic Metabolic Panel LAB 07/11/24 Verified 05:00 Basic Metabolic Panel LAB 07/12/24 Verified 05:00 Complete Blood Count LAB 07/10/24 Verified 05:00 Complete Blood Count LAB 07/11/24 Verified 05:00 Complete Blood Count LAB 07/12/24 Verified 05:00 * Gi Dvh Sole Tacker CONS 07/09/24 Transmitted 08:37 Cholestyramine Powder PHA 07/09/24 In Process (Questran Powder) 11:00 Sod Chl 0.45% PHA 07/09/24 In Process (Sodi... W/Sodium 08:45 Venous Blood Gas RT 07/09/24 Logged 12:00 Date of Service: Jul 09, 2024 Billing Provider: RACHEL CARLSON NP Common Visit Codes: [id number] CARE 30-74 MIN RACHEL CARLSON NP Jul 09, 2024 11:35
--- NOTE | 2024-07-09 14:01 | DVHINCON2 ---
GI Consult Consult Note GI consult note Date of Consultation: 07/09/2024 Chief Complaint: Positive FOBT Referring Physician: Andie HILLIARD H&P: 28-year-old female, past medical history of HIV mac, multiple blood transfusion presents to ER with complains of generalized weakness Patient complains of nausea. No vomiting Patient admits to multiple. Episodes of loose stool no red blood in stool denies melena. No colonoscopy or EGD in past Past Medical History: Multiple blood transfusion, HIV, MAC Past Surgical History: section, Tonsillectomy, Cholecystectomy Social History: NO smoking, drinking ETOH and use of illegal drugs. Family History: Noncontributory Review of Systems: Constitutional: Weakness HEENT: no eye pain, no hearing loss, no oral lesion, no scleral icterus Heart: no chest pain, no chest pressure Lung: Shortness of breath Abdomen: see HPI Physical exam: General: NAD, AAOX3 Chest: lung olbo clear to auscultation Heart: RRR, no murmur Abdomen: non-distended, no tenderness to palpation, +BS Labs: Chemistry Test 07/09/24 05:00 Calcium Level 6.7 mg/dL (8.7-10.4) L Urinalysis Test 07/07/24 09:40 Urine Color Light-yellow (Yellow) Urine Clarity Hazy (Clear) H Urine pH 6.0 (5.0-9.0) Urine Specific [place] 1.010 (1.001-1.035) Urine Protein Trace (Negative) H Urine Ketones Negative (Negative) Urine Blood Negative /uL (Negative) Urine Nitrite Negative (Negative) Urine Bilirubin Negative (Negative) Urine Urobilinogen Normal mg/dL (Negative) Urine Leukocyte Esterase 2+ /uL (Negative) Urine RBC 2 /hpf (0 - 4) Urine Microscopic WBC 6 /HPF (0-5) H Urine Squamous Epithelial Cells Few /hpf (<5) Urine Bacteria Few /hpf (None Seen) H Urine Hyaline Casts Few /lpf (0 - 2) Urine Yeast with Hyphae Present /hpf Urine Yeast (Budding) Occasional /hpf (None Urine Glucose Normal mg/dL (Normal) Microbiology Microbiology Date/Time Source Procedure Growth Status 07/08/24 04:15 Nose MRSA Screen - Final Complete 07/06/24 18:21 Blood Blood Culture - Preliminary NO GROWTH AFTER 48 HOURS OF INCUBATION. Resulted Imaging: CT abdomen pelvis IMPRESSION: 1. Splenomegaly measuring 20 cm 2. Questionable pericaval and periaortic adenopathy this is difficult to visualize since there is no oral or IV contrast. Consider repeat study with oral and 90 contrast if possible. 3. IUD in the uterus. 4. Gallbladder has been surgically removed. Assessment: Diarrhea Anemia Septic shock HIV Plan: Discussed with Dr. Wilkinson Stool for C diff, bacterial culture and cryptosporidiosis Continue antibiotic use Monitor labs Possibility of GI procedures if required discussed with patient after ruling out colitis. At this time patient refuses any GI procedures Discussed plan with patient and RN Thank you for this consult Date of Service: Jul 09, 2024 Billing Provider: SERG ANNE Common Visit Codes: CONSULT ONLY Consultation Codes: [id number] CONSULT <60MIN SERG ANNE Jul 09, 2024 14:01
[2024-07-09] MEDS: CHOLESTYRAMINE 4 GM POWDER PO SCH (14:12)
[2024-07-09] MEDS: ETHAMBUTOL HCL 400 MG TAB PO SCH (18:04)
[2024-07-09] MEDS ORDERED: rifAMPin 300 MG CAP PO SCH (22:00)
[2024-07-09] MEDS: CIPROFLOXACIN 400MG/200ML 200 ML IV SCH (22:47)
[2024-07-10] VITALS (89 sets, daily range): BP systolic 80–110; BP diastolic 39–80; PULSE 73–135; RESP 18–40; TEMP 97.7–98.7; O2SAT 85–100
[2024-07-10 05:03] LABS: Basophils # (auto) 0 10 ^3/uL (0-0.2); Basophils % (auto) 0.3 % (0.0-2.0); Eosinophils # (auto) 0 10 ^3/uL (0-0.8); Eosinophils % (auto) 0.4 % (0.0-7.0); Hematocrit 28.1 % (36.0-46.0); Hemoglobin 9.2 g/dL (12.2-16.2); Lymphocytes % (auto) 31.6 % (10.0-50.0); Mean Corpuscular Hgb Conc. 32.8 g/dL (32.0-36.0); Mean Corpuscular Volume 85.4 fL (80.0-100.0); Monocytes # (auto) 0.2 10 ^3/uL (0-1.3); Monocytes % (auto) 5.2 % (0.0-12.0); Neutrophils % (auto) 62.5 % (37.0-80.0); Nucleated Red Blood Cells % 0.2 %; Platelet Count (auto) 40 10^3/uL (140-450); Red Blood Cells 3.29 10^6/uL (4.0-5.20); Red Cell Distribution Width 17.7 % (11.8-14.3); White Blood Cell 3.2 10^3/uL (4.4-10.8)
[2024-07-10 05:13] LABS: Chloride 100 mmol/L (98-107)
[2024-07-10 05:14] LABS: Anion Gap 14 (5-15); Carbon Dioxide 14 mmol/L (20-31); Sodium 128 mmol/L (136-145)
[2024-07-10 05:15] LABS: Calcium 6.3 mg/dL (8.7-10.4)
[2024-07-10 05:19] LABS: Glucose 81 mg/dL (74-106)
[2024-07-10 05:26] LABS: Blood Urea Nitrogen 7 mg/dL (9-23)
[2024-07-10] MEDS: POTASSIUM CHL 20 Meq TABLET PO ONE ×2 (06:16→08:36)
[2024-07-10] MEDS: MIDODRINE HCL 10 MG TAB PO SCH (08:36)
--- NOTE | 2024-07-10 08:40 | DVHPN2 ---
Subjective Patient reports having multiple bowel movements and generalized weakness. Reviewed: Care Plan, H&P, Labs, Medications Changes from previous H/P or p: No Changes General: Per HPI Eyes: No Pain, No Vision change, No Conjunctivae inflammation, No Eyelid inflammation, No Other, No Redness ENT: No Ear pain, No Ear discharge, No Nose pain, No Nose discharge, No Nose congestion, No Mouth pain, No Mouth swelling, No Throat pain, No Throat swelling, No Other Cardiovascular: No Chest Pain, No Palpitations, No Orthopnea, No Paroxysmal Noc. Dyspnea, No Edema, No Lt Headedness, No Other Respiratory: No Cough, No Dry; Shortness of breath; No SOB with excertion, No Wheezing, No Hemoptysis, No Pleuritic Pain, No Sputum, No Other Gastrointestinal: No Nausea, No Vomiting, No Abdominal Pain, No Diarrhea, No Constipation, No Melena, No Hematochezia, No Other Genitourinary: No Dysuria, No Frequency, No Incontinence, No Hematuria, No Retention, No Other Musculoskeletal: No other, No neck pain, No shoulder pain, No arm pain, No back pain, No hand pain, No leg pain, No foot pain Skin: No Rash, No Lesions, No Jaundice, No Bruising, No Other Objective Vitals Vital Signs Date Time Temp Pulse Resp B/P (MAP) Pulse Ox O2 Delivery O2 Flow Rate FiO2 07/10/24 07:47 83/41 07/10/24 06:00 24 99 Nasal Cannula* 2 28 07/10/24 06:00 101 07/10/24 04:00 98.6 98.6 Intake/Output Intake and Output 07/10/24 07:00 Intake Total 5161.25 ml Output Total 2100 ml Balance 3061.25 ml Intake Oral 1950 ml IV Total 3211.25 ml Output Urine Total 1950 ml Stool Total 150 ml # Voids 13 # Bowel Movements 8 General Appearance: Alert, Oriented X3, Cooperative, mild distress HEENT: Atraumatic, PERRLA Lungs: Clear to auscultation, Normal air movement Cardiovascular: Normal S1, Normal S2 Musculoskeletal: Normal sensory function, Normal motor function Neuro: Normal speech, Cranial nerves 3-12 NL Skin: Dry, Intact Psych/Mental Status: Mental status NL, Mood NL Medications Current Medications Medications Dose Ordered Sig/Era Route Start Time Stop Time Status Last Admin Dose Admin Pantoprazole Sodium 40 mg DAILY IV 07/07/24 10:00 07/09/24 09:43 40 MG Acetaminophen/ Hydrocodone Bitart 1 tab Q4HP PRN PO 07/06/24 20:15 07/10/24 08:36 1 TAB Docusate Sodium 100 mg BIDPRN PRN PO 07/06/24 20:15 Multivitamins 1 tab DAILY PO 07/07/24 10:00 07/08/24 09:16 1 TAB Acetaminophen 650 mg Q6HP PRN PO 07/06/24 20:15 07/08/24 06:21 650 MG Trimethoprim/ Sulfamethoxazole 1 tab Q12HR PO 07/07/24 10:00 07/09/24 23:12 1 TAB Prochlorperazine Edisylate 5 mg Q4HPRN PRN IV 07/06/24 21:45 07/08/24 18:10 5 MG Nitroglycerin 0.4 mg Q5MINP PRN SL 07/06/24 21:45 Morphine Sulfate 2 mg Q30M PRN IV 07/06/24 21:45 Cancel Norepinephrine Bitartrate 250 ml @ 3.75 mls/hr Q24H IV 07/07/24 03:30 07/10/24 01:39 37.5 MLS/HR Morphine Sulfate 2 mg Q30MIN PRN IV 07/07/24 06:45 Cancel Loperamide HCl 2 mg PRN PRN PO 07/08/24 08:45 07/10/24 05:10 2 MG Saccharomyces Boulardii 250 mg DAILY PO 07/08/24 10:00 07/09/24 09:44 250 MG Morphine Sulfate 2 mg Q30M PRN IV 07/08/24 09:15 07/08/24 15:51 2 MG Al Hydrox/Mg Hydrox/Simethicone 5 ml QID MT 07/08/24 18:00 07/09/24 22:00 5 ML Nystatin 5 ml QID MT 07/08/24 18:00 07/09/24 22:47 5 ML Lorazepam 0.5 mg Q6HP PRN IV 07/09/24 02:30 07/09/24 22:48 0.5 MG Cholestyramine Resin 4 gm DAILY@11 PO 07/09/24 11:00 Sodium Bicarbonate 50 ml/ Sodium Chloride 1,050 ml @ 100 mls/hr [id number] IV 07/09/24 08:45 07/10/24 05:08 100 MLS/HR Ciprofloxacin 200 ml @ 200 mls/hr Q12HR IV 07/09/24 22:00 07/09/24 22:47 200 MLS/HR Rifampin 300 mg BID PO 07/09/24 22:00 UNV Ethambutol HCl 800 mg DAILY PO 07/09/24 15:45 07/09/24 18:04 800 MG Patient Own Medication 1 DAILY PO 07/10/24 10:00 Midodrine 10 mg TID@0800,1400,2200 PO 07/10/24 08:00 07/10/24 08:36 10 MG Hydrocortisone Sodium Succinate 100 mg Q12HR IV 07/10/24 10:00 UNV Laboratory Results Laboratory Tests 07/10/24 04:46 Chemistry Test 07/10/24 04:46 Calcium Level 6.3 mg/dL (8.7-10.4) L Urinalysis Test 07/07/24 09:40 Urine Color Light-yellow (Yellow) Urine Clarity Hazy (Clear) H Urine pH 6.0 (5.0-9.0) Urine Specific [place] 1.010 (1.001-1.035) Urine Protein Trace (Negative) H Urine Ketones Negative (Negative) Urine Blood Negative /uL (Negative) Urine Nitrite Negative (Negative) Urine Bilirubin Negative (Negative) Urine Urobilinogen Normal mg/dL (Negative) Urine Leukocyte Esterase 2+ /uL (Negative) Urine RBC 2 /hpf (0 - 4) Urine Microscopic WBC 6 /HPF (0-5) H Urine Squamous Epithelial Cells Few /hpf (<5) Urine Bacteria Few /hpf (None Seen) H Urine Hyaline Casts Few /lpf (0 - 2) Urine Yeast with Hyphae Present /hpf Urine Yeast (Budding) Occasional /hpf (None Urine Glucose Normal mg/dL (Normal) Blood Gas Results Test 07/09/24 12:05 07/10/24 08:08 FiO2 % 28.0 28.0 Microbiology Microbiology Date/Time Source Procedure Growth Status 07/08/24 04:15 Nose MRSA Screen - Final Complete 07/06/24 18:30 Stool Clostridium difficile Toxin Assay - Final Complete 07/06/24 18:21 Blood Blood Culture - Preliminary NO GROWTH AFTER 72 HOURS OF INCUBATION. Resulted Labs and/or images reviewed: Labs reviewed by me, Image(s) reviewed by me Assessment/Plan Assessment/Plan Impression: -septic shock -severe hypovolemia -rule out colitis -anemia, rule out GI bleed -HIV -MAC -cachexia -hyponatremia Plan: Events: Continues to be on norepinephrine at 18 micrograms/minute. Decreased tachypnea. Continues to have bowel movements despite Lomotil and Questran. GI consultation placed, recommendations reviewed. -VBG pending. Continue sodium bicarbonate drip -start hydrocortisone 100 mg b.i.d. -continue loperamide, add Questran -ID consultation pending -potassium replacement -Levophed to keep map greater than 65 mmHg -vasopressor therapy -continue antimicrobials per Infectious Disease -repeat labs in a.m. Critical care time spent with patient discussing and formulating plan of care: 40 minutes. This does not include time spent performing procedures. This medical document was created using an electronic medical record system with [employer] dictation system. Although this document has been carefully reviewed, there may still be some phonetic and typographical errors. These areas are purely typographical due to imperfections of the software programs, and do not reflect any compromise in the patient's medical care. Plan discussed with: Patient, Other (RN) My Orders Orders - RACHEL CARLSON [employer] Procedure Category Date Status Time * Gi Dvh Fiscal Accountant CONS 07/09/24 Transmitted 08:37 Cholestyramine Powder PHA 07/09/24 In Process (Questran Powder) 11:00 Sod Chl 0.45% PHA 07/09/24 In Process (Sodi... W/Sodium 08:45 Venous Blood Gas RT 07/09/24 Logged 12:00 Notify Provider NOTICE 07/09/24 Transmitted Malnutrition 13:10 Nutritional NOURISH 07/09/24 Transmitted Supplements 13:10 Increase Calorie NOURISH 07/09/24 Transmitted Intake 13:10 Urine Bacterial IBAN 07/09/24 In Process Culture 16:30 Insert/Manage Urinary ARISTEO 07/09/24 In Process Catheter 16:30 Apply Barrier Cream ARISTEO 07/09/24 In Process 11:33 Potassium LAB 07/10/24 Logged 12:00 Magnesium LAB 07/10/24 Logged 12:00 Hydrocortisone PHA 07/10/24 Logged Succinate Inj 10:00 Obtain Mr From Other ORDERS 07/10/24 Transmitted Facility 07:43 Venous Blood Gas RT 07/10/24 Logged 07:43 Date of Service: Jul 10, 2024 Billing Provider: RACHEL CARLSON NP Common Visit Codes: [id number] CARE 30-74 MIN RACHEL CARLSON NP Jul 10, 2024 08:40
[2024-07-10] MEDS: HYDROCORTISONE SOD SUCC 100 MG/2ML INJ VIAL IV SCH (09:29)
[2024-07-10] MEDS: BIKTARVY 50MG-200MG-25MG TABLET PO SCH (10:00)
[2024-07-10] MEDS: SODIUM BICARB 8.4% 50Meq/50ml SYR Vial IV ONE (10:44)
[2024-07-10] MEDS: ALBUMIN 5% 250 ML IV ONE (10:45)
[2024-07-10 12:44] LABS: Potassium 3.6 mmol/L (3.5-5.1)
[2024-07-10 12:57] LABS: Magnesium 1.4 mg/dL (1.6-2.6)
--- NOTE | 2024-07-10 21:43 | DVHPN2 ---
Progress Note - Dictate Date Seen: Jul 10, 2024 Medical Necessity Reason Pt with a Central, PICC or Fol: No Subjective Patient seen at bedside in [facility] 261 Patient continues to have copious amount of loose greenish mucoid bowel movements Stool for C diff was negative Urine culture showed [id number] colony count of Enterococcus species Patient was hospitalized here in April for two weeks with similar symptoms Stool for ova and parasites was negative at that time She was treated conservatively with IV Flagyl cholestyramine Lomotil and nutritional supplements Patient's MRSA screen is negative, she is currently on IV Cipro and oral Bactrim vital signs Vital Sign Date Time Temp Pulse Resp B/P (MAP) Pulse Ox O2 Delivery O2 Flow Rate FiO2 07/10/24 20:45 80 25 100/65 (77) 97 07/10/24 20:00 98.0 98.0 07/10/24 20:00 Nasal Cannula* 2 28 Total Intake and Output 07/09/24 07/09/24 07/10/24 15:00 23:00 07:00 Intake Total 970.00 ml 2050.00 ml 2271.25 ml Output Total 150 ml 1950 ml Balance 970.00 ml 1900.00 ml 321.25 ml medications Current Medications Medications Dose Ordered Sig/Era Route Start Time Stop Time Status Last Admin Dose Admin Pantoprazole Sodium 40 mg DAILY IV 07/07/24 10:00 07/10/24 09:28 40 MG Acetaminophen/ Hydrocodone Bitart 1 tab Q4HP PRN PO 07/06/24 20:15 07/10/24 08:36 1 TAB Docusate Sodium 100 mg BIDPRN PRN PO 07/06/24 20:15 Multivitamins 1 tab DAILY PO 07/07/24 10:00 07/10/24 09:25 1 TAB Acetaminophen 650 mg Q6HP PRN PO 07/06/24 20:15 07/08/24 06:21 650 MG Trimethoprim/ Sulfamethoxazole 1 tab Q12HR PO 07/07/24 10:00 07/10/24 13:10 1 TAB Prochlorperazine Edisylate 5 mg Q4HPRN PRN IV 07/06/24 21:45 07/10/24 09:51 5 MG Nitroglycerin 0.4 mg Q5MINP PRN SL 07/06/24 21:45 Morphine Sulfate 2 mg Q30M PRN IV 07/06/24 21:45 Cancel Norepinephrine Bitartrate 250 ml @ 3.75 mls/hr Q24H IV 07/07/24 03:30 07/10/24 09:28 33.75 MLS/HR Morphine Sulfate 2 mg Q30MIN PRN IV 07/07/24 06:45 Cancel Loperamide HCl 2 mg PRN PRN PO 07/08/24 08:45 07/10/24 05:10 2 MG Saccharomyces Boulardii 250 mg DAILY PO 07/08/24 10:00 07/10/24 09:25 250 MG Morphine Sulfate 2 mg Q30M PRN IV 07/08/24 09:15 07/08/24 15:51 2 MG Al Hydrox/Mg Hydrox/Simethicone 5 ml QID MT 07/08/24 18:00 07/10/24 19:00 5 ML Nystatin 5 ml QID MT 07/08/24 18:00 07/10/24 18:16 5 ML Lorazepam 0.5 mg Q6HP PRN IV 07/09/24 02:30 07/10/24 18:16 0.5 MG Cholestyramine Resin 4 gm DAILY@11 PO 07/09/24 11:00 Sodium Bicarbonate 50 ml/ Sodium Chloride 1,050 ml @ 100 mls/hr [id number] IV 07/09/24 08:45 07/10/24 05:08 100 MLS/HR Ciprofloxacin 200 ml @ 200 mls/hr Q12HR IV 07/09/24 22:00 07/10/24 09:32 200 MLS/HR Rifampin 300 mg BID PO 07/09/24 22:00 UNV Ethambutol HCl 800 mg DAILY PO 07/09/24 15:45 07/10/24 09:25 800 MG Patient Own Medication 1 DAILY PO 07/10/24 10:00 Midodrine 10 mg TID@0800,1400,2200 PO 07/10/24 08:00 07/10/24 13:09 10 MG Hydrocortisone Sodium Succinate 100 mg Q12HR IV 07/10/24 10:00 07/10/24 09:29 100 MG objective General: NAD, AAOX3 Chest: lung lobo clear to auscultation Heart: RRR, no murmur Abdomen: non-distended, no tenderness to palpation, +BS laboratory and microbiology Laboratory Tests 07/10/24 12:14 07/10/24 04:46 Test 07/10/24 04:46 Range/Units Serum Glucose 81 74-106 mg/dL Problems(with codes): (1) HIV disease (2) Diarrhea (3) History of HIV or AIDS (4) Pneumocystis jiroveci pneumonia (5) Opportunistic infection (6) Generalized weakness (7) Pancytopenia (8) Hypoalbuminemia (9) Anemia, unspecified Prognosis Plan Recommend a send out stool sample for cryptosporidiosis, cyclospora Questran 4 g packet p.o. twice a day Lomotil one tablet p.o. q.6 hours as needed for diarrhea Probiotics; patient not stable for a colonoscopy at this time due to generalized severe weakness and severe pancytopenia and low platelets Awaiting ID consult, patient was seen by Dr. Linus Garcia on her last admission Overall her prognosis is guarded Dietary Evaluation Review Recommendations by RD: Increase Calorie Intake, Protein Supplementation Comments: Pt meets criteria for Severe Protein-Calorie Malnutrition in the setting of chronic illness based on severe weight loss (26.2kg/34.6% in 3 months) and moderate muscle wasting(triceps & shoulder). Nutrition Recommendation: 1. Liberalize to regular diet to minimize food restriction 2. Appetite stimulant daily 3. Ensure Enlive 240 ml TID (ordered per ONS protocol) Expected Outcomes/Goals: To maintain/gain weight To meet at least 75% estimated needs Fu 3-5 days Interpretation of weight loss: >7.5% in 3 months Muscle Mass (Severe): Mod to Severe Depletion Protein Calorie Malnutrition: Severe Is there a minimum of two crit: Yes Plan discussed with: Patient, Other ([facility] Nurse) CC Plasma Assessment Blood Product Administration S: [id number] JAMESON KIM MD Jul 10, 2024 21:43
[2024-07-10] MEDS: CHOLESTYRAMINE 4 GM POWDER PO SCH (22:03)
[2024-07-11] VITALS (95 sets, daily range): BP systolic 88–115; BP diastolic 31–91; PULSE 78–116; RESP 18–42; TEMP 97.5–98.6; O2SAT 96–100
[2024-07-11] MEDS ORDERED: SULF400T11 PO (04:35)
[2024-07-11] MEDS ORDERED: AZIT500T66 PO (04:35)
[2024-07-11] MEDS ORDERED: ETHA400T20 PO (04:35)
[2024-07-11] MEDS ORDERED: LEVO100I IV (04:35)
[2024-07-11] MEDS ORDERED: MID10T GT (04:35)
[2024-07-11] MEDS ORDERED: BICT1TAB PO (04:37)
[2024-07-11 05:31] LABS: Basophils # (auto) 0 10 ^3/uL (0-0.2); Basophils % (auto) 0.1 % (0.0-2.0); Eosinophils # (auto) 0 10 ^3/uL (0-0.8); Eosinophils % (auto) 0.1 % (0.0-7.0); Hemoglobin 9.6 g/dL (12.2-16.2); Monocytes # (auto) 0.2 10 ^3/uL (0-1.3)
[2024-07-11 05:32] LABS: Anion Gap 11 (5-15); Carbon Dioxide 20 mmol/L (20-31); Chloride 101 mmol/L (98-107); Potassium 3.5 mmol/L (3.5-5.1)
[2024-07-11 05:35] LABS: Hematocrit 28.8 % (36.0-46.0); Lymphocytes % (auto) 19.1 % (10.0-50.0); Mean Corpuscular Hgb Conc. 33.2 g/dL (32.0-36.0); Mean Corpuscular Volume 84.3 fL (80.0-100.0); Monocytes % (auto) 3.4 % (0.0-12.0); Neutrophils # (auto) 4.1 10 ^3/uL (1.6-8.6); Neutrophils % (auto) 77.3 % (37.0-80.0); Platelet Count (auto) 62 10^3/uL (140-450); Red Blood Cells 3.42 10^6/uL (4.0-5.20); Red Cell Distribution Width 18.7 % (11.8-14.3); White Blood Cell 5.3 10^3/uL (4.4-10.8)
[2024-07-11 05:38] LABS: BUN/Creatinine Ratio 29.2 (10.0-20.0)
[2024-07-11 05:47] LABS: Blood Urea Nitrogen 7 mg/dL (9-23); Calcium 6.5 mg/dL (8.7-10.4); Glucose 138 mg/dL (74-106); Sodium 132 mmol/L (136-145)
--- NOTE | 2024-07-11 10:06 | DVHPN2 ---
Subjective Patient reports having multiple bowel movements and generalized weakness. Reviewed: Care Plan, H&P, Labs, Medications Changes from previous H/P or p: No Changes General: Per HPI Eyes: No Pain, No Vision change, No Conjunctivae inflammation, No Eyelid inflammation, No Other, No Redness ENT: No Ear pain, No Ear discharge, No Nose pain, No Nose discharge, No Nose congestion, No Mouth pain, No Mouth swelling, No Throat pain, No Throat swelling, No Other Cardiovascular: No Chest Pain, No Palpitations, No Orthopnea, No Paroxysmal Noc. Dyspnea, No Edema, No Lt Headedness, No Other Respiratory: No Cough, No Dry; Shortness of breath; No SOB with excertion, No Wheezing, No Hemoptysis, No Pleuritic Pain, No Sputum, No Other Gastrointestinal: No Nausea, No Vomiting, No Abdominal Pain, No Diarrhea, No Constipation, No Melena, No Hematochezia, No Other Genitourinary: No Dysuria, No Frequency, No Incontinence, No Hematuria, No Retention, No Other Musculoskeletal: No other, No neck pain, No shoulder pain, No arm pain, No back pain, No hand pain, No leg pain, No foot pain Skin: No Rash, No Lesions, No Jaundice, No Bruising, No Other Objective Vitals Vital Signs Date Time Temp Pulse Resp B/P (MAP) Pulse Ox O2 Delivery O2 Flow Rate FiO2 07/11/24 08:45 99 35 103/68 (80) 98 07/11/24 08:00 97.7 97.7 07/11/24 06:00 Nasal Cannula* 2 28 Intake/Output Intake and Output 07/11/24 07:00 Intake Total 5156.25 ml Output Total 3350 ml Balance 1806.25 ml Intake Oral 1650 ml IV Total 3506.25 ml Output Urine Total 3350 ml # Bowel Movements 19 General Appearance: Alert, Oriented X3, Cooperative, mild distress HEENT: Atraumatic, PERRLA Lungs: Clear to auscultation, Normal air movement Cardiovascular: Normal S1, Normal S2 Musculoskeletal: Normal sensory function, Normal motor function Neuro: Normal speech, Cranial nerves 3-12 NL Skin: Dry, Intact Psych/Mental Status: Mental status NL, Mood NL Medications Current Medications Medications Dose Ordered Sig/Era Route Start Time Stop Time Status Last Admin Dose Admin Pantoprazole Sodium 40 mg DAILY IV 07/07/24 10:00 07/10/24 09:28 40 MG Acetaminophen/ Hydrocodone Bitart 1 tab Q4HP PRN PO 07/06/24 20:15 07/11/24 03:31 1 TAB Multivitamins 1 tab DAILY PO 07/07/24 10:00 07/10/24 09:25 1 TAB Acetaminophen 650 mg Q6HP PRN PO 07/06/24 20:15 07/08/24 06:21 650 MG Trimethoprim/ Sulfamethoxazole 1 tab Q12HR PO 07/07/24 10:00 07/10/24 22:01 1 TAB Prochlorperazine Edisylate 5 mg Q4HPRN PRN IV 07/06/24 21:45 07/10/24 09:51 5 MG Nitroglycerin 0.4 mg Q5MINP PRN SL 07/06/24 21:45 Morphine Sulfate 2 mg Q30M PRN IV 07/06/24 21:45 Cancel Norepinephrine Bitartrate 250 ml @ 3.75 mls/hr Q24H IV 07/07/24 03:30 07/11/24 08:38 30 MLS/HR Morphine Sulfate 2 mg Q30MIN PRN IV 07/07/24 06:45 Cancel Loperamide HCl 2 mg PRN PRN PO 07/08/24 08:45 07/11/24 03:15 2 MG Saccharomyces Boulardii 250 mg DAILY PO 07/08/24 10:00 07/10/24 09:25 250 MG Morphine Sulfate 2 mg Q30M PRN IV 07/08/24 09:15 07/08/24 15:51 2 MG Al Hydrox/Mg Hydrox/Simethicone 5 ml QID MT 07/08/24 18:00 07/10/24 22:02 5 ML Nystatin 5 ml QID MT 07/08/24 18:00 07/10/24 22:01 5 ML Lorazepam 0.5 mg Q6HP PRN IV 07/09/24 02:30 07/11/24 00:44 0.5 MG Ciprofloxacin 200 ml @ 200 mls/hr Q12HR IV 07/09/24 22:00 07/10/24 22:02 200 MLS/HR Rifampin 300 mg BID PO 07/09/24 22:00 UNV Ethambutol HCl 800 mg DAILY PO 07/09/24 15:45 07/10/24 09:25 800 MG Patient Own Medication 1 DAILY PO 07/10/24 10:00 Midodrine 10 mg TID@0800,1400,2200 PO 07/10/24 08:00 07/11/24 09:01 10 MG Hydrocortisone Sodium Succinate 100 mg Q12HR IV 07/10/24 10:00 07/10/24 22:02 100 MG Cholestyramine Resin 4 gm BID PO 07/10/24 22:00 07/10/24 22:03 4 GM Dextrose/Lactated Ringer's 1,000 ml @ 100 mls/hr Q10H IV 07/11/24 07:30 Laboratory Results Laboratory Tests 07/11/24 04:50 Chemistry Test 07/10/24 12:14 07/11/24 04:50 Magnesium Level 1.4 mg/dL (1.6-2.6) L Pending Calcium Level 6.5 mg/dL (8.7-10.4) L Urinalysis Test 07/07/24 09:40 Urine Color Light-yellow (Yellow) Urine Clarity Hazy (Clear) H Urine pH 6.0 (5.0-9.0) Urine Specific [place] 1.010 (1.001-1.035) Urine Protein Trace (Negative) H Urine Ketones Negative (Negative) Urine Blood Negative /uL (Negative) Urine Nitrite Negative (Negative) Urine Bilirubin Negative (Negative) Urine Urobilinogen Normal mg/dL (Negative) Urine Leukocyte Esterase 2+ /uL (Negative) Urine RBC 2 /hpf (0 - 4) Urine Microscopic WBC 6 /HPF (0-5) H Urine Squamous Epithelial Cells Few /hpf (<5) Urine Bacteria Few /hpf (None Seen) H Urine Hyaline Casts Few /lpf (0 - 2) Urine Yeast with Hyphae Present /hpf Urine Yeast (Budding) Occasional /hpf (None Urine Glucose Normal mg/dL (Normal) Microbiology Microbiology Date/Time Source Procedure Growth Status 07/09/24 17:00 Urine - [place] Urine Culture - Preliminary Resulted 07/08/24 04:15 Nose MRSA Screen - Final Complete 07/06/24 18:30 Stool Clostridium difficile Toxin Assay - Final Complete 07/06/24 18:21 Blood Blood Culture - Preliminary NO GROWTH AFTER 72 HOURS OF INCUBATION. Resulted Labs and/or images reviewed: Labs reviewed by me, Image(s) reviewed by me Assessment/Plan Assessment/Plan Impression: -septic shock -severe hypovolemia -rule out colitis -anemia, rule out GI bleed -HIV -MAC -cachexia -hyponatremia Plan: Events: Patient had norepinephrine at 16 micrograms/minute. BNP reveals that acidosis has improved. Stop sodium bicarbonate drip. Continue current medical treatment for patient's persistent BMs. -continue hydrocortisone 100 mg b.i.d. -continue loperamide, add Questran -ID consultation pending -potassium replacement -Levophed to keep map greater than 65 mmHg -vasopressor therapy -continue antimicrobials per Infectious Disease -repeat labs in a.m. Critical care time spent with patient discussing and formulating plan of care: 40 minutes. This does not include time spent performing procedures. This medical document was created using an electronic medical record system with [employer] system. Although this document has been carefully reviewed, there may still be some phonetic and typographical errors. These areas are purely typographical due to imperfections of the software programs, and do not reflect any compromise in the patient's medical care. Plan discussed with: Patient, Other (RN) My Orders Orders - RACHEL CARLSON NP Procedure Category Date Status Time D5w/Lactated Ringers PHA 07/11/24 In Process ([id number]) 07:30 Magnesium LAB 07/11/24 In Process 09:46 Date of Service: Jul 11, 2024 Billing Provider: RACHEL CARLSON NP Common Visit Codes: [id number] CARE 30-74 MIN RACHEL CARLSON NP Jul 11, 2024 10:06
[2024-07-11] MEDS: D5W/LACTATED RINGERS 1,000 ML IV SCH (10:43)
[2024-07-11] MEDS: MAGNESIUM SULFATE 1GM/100ML 100 ML IV SCH (10:54)
--- NOTE | 2024-07-11 13:42 | DVHPN2 ---
Subjective Patient is still complains of weakness Patient has diarrhea after eating any food Reviewed: Care Plan, H&P, Labs, Medications Changes from previous H/P or p: No Changes General: Per HPI Eyes: No Pain, No Vision change, No Conjunctivae inflammation, No Eyelid inflammation, No Other, No Redness ENT: No Ear pain, No Ear discharge, No Nose pain, No Nose discharge, No Nose congestion, No Mouth pain, No Mouth swelling, No Throat pain, No Throat swelling, No Other Cardiovascular: No Chest Pain, No Palpitations, No Orthopnea, No Paroxysmal Noc. Dyspnea, No Edema, No Lt Headedness, No Other Respiratory: No Cough, No Dry; Shortness of breath; No SOB with excertion, No Wheezing, No Hemoptysis, No Pleuritic Pain, No Sputum, No Other Gastrointestinal: No Nausea, No Vomiting, No Abdominal Pain, No Diarrhea, No Constipation, No Melena, No Hematochezia, No Other Genitourinary: No Dysuria, No Frequency, No Incontinence, No Hematuria, No Retention, No Other Musculoskeletal: No other, No neck pain, No shoulder pain, No arm pain, No back pain, No hand pain, No leg pain, No foot pain Skin: No Rash, No Lesions, No Jaundice, No Bruising, No Other Objective Vitals Vital Signs Date Time Temp Pulse Resp B/P (MAP) Pulse Ox O2 Delivery O2 Flow Rate FiO2 07/11/24 13:00 99 27 99/31 (53) 98 07/11/24 12:00 Nasal Cannula* 2 28 07/11/24 12:00 98.6 98.6 Intake/Output Intake and Output 07/11/24 07:00 Intake Total 5186.25 ml Output Total 3350 ml Balance 1836.25 ml Intake Oral 1650 ml IV Total 3536.25 ml Output Urine Total 3350 ml # Bowel Movements 19 General Appearance: Alert, Oriented X3, Cooperative, mild distress HEENT: Atraumatic, PERRLA Lungs: Clear to auscultation, Normal air movement, Other Cardiovascular: Regular rate, Normal S1, Normal S2, No murmurs, Gallops, Rubs, Other Abdomen: Normal bowel sounds, Soft, No tenderness, No hepatospenomegaly, No masses, Other Musculoskeletal: Normal sensory function, Normal motor function Neuro: Normal speech, Cranial nerves 3-12 NL Skin: Dry, Intact Psych/Mental Status: Mental status NL, Mood NL Medications Current Medications Medications Dose Ordered Sig/Era Route Start Time Stop Time Status Last Admin Dose Admin Pantoprazole Sodium 40 mg DAILY IV 07/07/24 10:00 07/11/24 10:23 40 MG Acetaminophen/ Hydrocodone Bitart 1 tab Q4HP PRN PO 07/06/24 20:15 07/11/24 10:24 1 TAB Multivitamins 1 tab DAILY PO 07/07/24 10:00 07/11/24 10:23 1 TAB Acetaminophen 650 mg Q6HP PRN PO 07/06/24 20:15 07/08/24 06:21 650 MG Trimethoprim/ Sulfamethoxazole 1 tab Q12HR PO 07/07/24 10:00 07/10/24 22:01 1 TAB Prochlorperazine Edisylate 5 mg Q4HPRN PRN IV 07/06/24 21:45 07/10/24 09:51 5 MG Nitroglycerin 0.4 mg Q5MINP PRN SL 07/06/24 21:45 Morphine Sulfate 2 mg Q30M PRN IV 07/06/24 21:45 Cancel Norepinephrine Bitartrate 250 ml @ 3.75 mls/hr Q24H IV 07/07/24 03:30 07/11/24 08:38 30 MLS/HR Morphine Sulfate 2 mg Q30MIN PRN IV 07/07/24 06:45 Cancel Loperamide HCl 2 mg PRN PRN PO 07/08/24 08:45 Hold 07/11/24 03:15 2 MG Saccharomyces Boulardii 250 mg DAILY PO 07/08/24 10:00 07/11/24 10:23 250 MG Morphine Sulfate 2 mg Q30M PRN IV 07/08/24 09:15 07/08/24 15:51 2 MG Al Hydrox/Mg Hydrox/Simethicone 5 ml QID MT 07/08/24 18:00 07/11/24 12:00 5 ML Nystatin 5 ml QID MT 07/08/24 18:00 07/11/24 12:47 5 ML Lorazepam 0.5 mg Q6HP PRN IV 07/09/24 02:30 07/11/24 00:44 0.5 MG Ciprofloxacin 200 ml @ 200 mls/hr Q12HR IV 07/09/24 22:00 07/11/24 10:25 200 MLS/HR Rifampin 300 mg BID PO 07/09/24 22:00 UNV Ethambutol HCl 800 mg DAILY PO 07/09/24 15:45 07/11/24 10:24 800 MG Patient Own Medication 1 DAILY PO 07/10/24 10:00 Midodrine 10 mg TID@0800,1400,2200 PO 07/10/24 08:00 07/11/24 09:01 10 MG Hydrocortisone Sodium Succinate 100 mg Q12HR IV 07/10/24 10:00 07/11/24 10:22 100 MG Cholestyramine Resin 4 gm BID PO 07/10/24 22:00 07/10/24 22:03 4 GM Dextrose/Lactated Ringer's 1,000 ml @ 100 mls/hr Q10H IV 07/11/24 07:30 07/11/24 10:43 100 MLS/HR Diphenoxylate HCl/ Atropine 2.5 mg Q12HP PRN PO 07/11/24 13:30 Laboratory Results Laboratory Tests 07/11/24 04:50 Chemistry Test 07/11/24 04:50 Calcium Level 6.5 mg/dL (8.7-10.4) L Magnesium Level 1.5 mg/dL (1.6-2.6) L Urinalysis Test 07/07/24 09:40 Urine Color Light-yellow (Yellow) Urine Clarity Hazy (Clear) H Urine pH 6.0 (5.0-9.0) Urine Specific [place] 1.010 (1.001-1.035) Urine Protein Trace (Negative) H Urine Ketones Negative (Negative) Urine Blood Negative /uL (Negative) Urine Nitrite Negative (Negative) Urine Bilirubin Negative (Negative) Urine Urobilinogen Normal mg/dL (Negative) Urine Leukocyte Esterase 2+ /uL (Negative) Urine RBC 2 /hpf (0 - 4) Urine Microscopic WBC 6 /HPF (0-5) H Urine Squamous Epithelial Cells Few /hpf (<5) Urine Bacteria Few /hpf (None Seen) H Urine Hyaline Casts Few /lpf (0 - 2) Urine Yeast with Hyphae Present /hpf Urine Yeast (Budding) Occasional /hpf (None Urine Glucose Normal mg/dL (Normal) Microbiology Microbiology Date/Time Source Procedure Growth Status 07/09/24 17:00 Urine - [place] Urine Culture - Preliminary Resulted 07/08/24 04:15 Nose MRSA Screen - Final Complete 07/06/24 18:30 Stool Clostridium difficile Toxin Assay - Final Complete 07/06/24 18:21 Blood Blood Culture - Preliminary NO GROWTH AFTER 72 HOURS OF INCUBATION. Resulted Labs and/or images reviewed: Labs reviewed by me, Image(s) reviewed by me Assessment/Plan Assessment/Plan (1) HIV disease (2) Diarrhea (3) History of HIV or AIDS (4) Pneumocystis jiroveci pneumonia (5) Opportunistic infection (6) Generalized weakness (7) Pancytopenia (8) Hypoalbuminemia (9) Anemia, unspecified Plan Discussed with Dr. Wilkinson Call lab to order for miscellaneous pathology for Cryptosporidium, cyclosporine and microsporidia Continue current antibiotic treatment Infectious disease consult in follow-up recommended Lomotil 2.5 mg b.i.d. We will continue to follow patient Plan discussed with: Patient My Orders Orders - SERG ANNE Procedure Category Date Status Time Pathology LAB 07/11/24 Transmitted Miscellaneous Order 13:38 Date of Service: Jul 11, 2024 Billing Provider: SERG ANNE Common Visit Codes: [id number] INP/OBS CARE(HIGH) SERG ANNE Jul 11, 2024 13:42
[2024-07-11] MEDS: DIPHENOXYLATE W/ATROPINE 2.5 MG TAB PO PRN (14:20)
[2024-07-11] MEDS: MAGNESIUM SULFATE 1GM/100ML 100 ML IV ONE (14:39)
[2024-07-12] VITALS (102 sets, daily range): BP systolic 84–134; BP diastolic 39–102; PULSE 80–146; RESP 14–60; TEMP 97.2–100.8; O2SAT 89–100
[2024-07-12 04:22] LABS: Basophils # (auto) 0 10 ^3/uL (0-0.2); Eosinophils # (auto) 0 10 ^3/uL (0-0.8); Eosinophils % (auto) 0.2 % (0.0-7.0); Hemoglobin 11.1 g/dL (12.2-16.2); Lymphocytes # (auto) 1.1 10 ^3/uL (0.4-5.4); Monocytes # (auto) 0.1 10 ^3/uL (0-1.3); Platelet Count (auto) 56 10^3/uL (140-450)
[2024-07-12 04:25] LABS: Basophils % (auto) 0.3 % (0.0-2.0); Lymphocytes % (auto) 22.4 % (10.0-50.0); Mean Corpuscular Hemoglobin 28.5 pg (28.0-32.0); Mean Corpuscular Hgb Conc. 33.5 g/dL (32.0-36.0); Mean Corpuscular Volume 85.1 fL (80.0-100.0); Monocytes % (auto) 2.4 % (0.0-12.0); Neutrophils # (auto) 3.8 10 ^3/uL (1.6-8.6); Neutrophils % (auto) 74.7 % (37.0-80.0); Nucleated Red Blood Cells % 0.7 %; Red Blood Cells 3.88 10^6/uL (4.0-5.20); Red Cell Distribution Width 18.6 % (11.8-14.3); White Blood Cell 5.1 10^3/uL (4.4-10.8)
[2024-07-12 04:29] LABS: Anion Gap 11 (5-15); Chloride 101 mmol/L (98-107); Potassium 3.9 mmol/L (3.5-5.1)
[2024-07-12 04:35] LABS: Blood Urea Nitrogen 10 mg/dL (9-23); Magnesium 1.8 mg/dL (1.6-2.6)
[2024-07-12 04:43] LABS: Calcium 6.2 mg/dL (8.7-10.4); Carbon Dioxide 17 mmol/L (20-31); Glucose 111 mg/dL (74-106); Sodium 129 mmol/L (136-145)
--- NOTE | 2024-07-12 10:15 | DVH ---
EXAM: XY CHEST PORTABLE Indication: Pain Technique: Single frontal view of the chest was obtained Comparison: XY CHEST PORTABLE on DOS: 07/06/24, XY CHEST PORTABLE on DOS: 05/01/24, XY CHEST PORTABLE o n DOS: 04/29/24, XY CHEST PORTABLE on DOS: 04/28/24, XY CHEST PORTABLE on DOS: 01/03/24 FINDINGS: Lines and Tubes: None Lungs: Low lung volumes with diffuse multifocal airspace opacities. Pleura: No effusion. No pneumothorax. Cardiomediastinal contours: Unremarkable Bones: No acute osseous abnormality. IMPRESSION: Low lung volumes with diffuse multifocal airspace opacities suggestive of atypical infection or pulmo nary edema. Findings are worsened compared to prior exam.
[2024-07-12] MEDS: ETOMIDATE (2MG/ML) 20ML VIAL IV ONE ×2 (10:29→11:41)
[2024-07-12] MEDS: ROCURONIUM 10MG/ML 10ML VIAL IV ONE ×2 (10:29→11:43)
[2024-07-12] MEDS: MIDAZOLAM DRIP 50 mg/50mL 50 ML IV SCH (10:30)
[2024-07-12] MEDS: fentaNYL Drip 2500mCg/250mlNS 250 ML IV SCH (10:30)
[2024-07-12] MEDS: fentaNYL Drip 2500mCg/250mlNS 250 ML IV ONE (10:33)
[2024-07-12] MEDS: MIDAZOLAM DRIP 50 mg/50mL 50 ML IV ONE (10:34)
[2024-07-12 11:04] LABS: Base Excess -10.5 mmol/L (-2.0-3.0)
[2024-07-12] MEDS: dilTIAZem 25 MG/5 ML VIAL IV ONE ×2 (11:08→15:45)
--- NOTE | 2024-07-12 11:13 | DVH ---
EXAM: XY CHEST XRAY 1 VIEW HISTORY: s/p intubation COMPARISON: XY CHEST PORTABLE on DOS: 07/12/24, XY CHEST PORTABLE on DOS: 07/06/24, XY CHEST PORTABLE on DOS: 05/01/24, XY CHEST PORTABLE on DOS: 04/29/24, XY CHEST PORTABLE on DOS: 04/28/24 TECHNIQUE: Portable supine AP view of the chest was performed. FINDINGS: Endotracheal tube has been placed with its tip 1.4 cm above the johnny. OG tube has been placed with its tip 13 cm distal to the GE junction. Lung volumes are low. There are diffuse bilateral pulmonary infiltrates, greater on the left. No pneumothorax. The heart is not enlarged. IMPRESSION: 1. Interval placement of endotracheal tube and OG tube. The endotracheal tube could be pulled back 1 -2 cm. 2. Diffuse bilateral pulmonary infiltrates, [id number]. This appearance may be due to d iffuse pneumonia and/or asymmetric pulmonary edema.
[2024-07-12] MEDS: SODIUM BICARB 8.4% 50Meq/50ml SYR Vial IV ONE ×2 (12:16→21:14)
--- NOTE | 2024-07-12 12:39 | DVHPN2 ---
Subjective Patient is intubated now Patient has diarrhea multiple episodes Reviewed: Care Plan, H&P, Labs, Medications Changes from previous H/P or p: No Changes General: Per HPI Eyes: No Pain, No Vision change, No Conjunctivae inflammation, No Eyelid inflammation, No Other, No Redness ENT: No Ear pain, No Ear discharge, No Nose pain, No Nose discharge, No Nose congestion, No Mouth pain, No Mouth swelling, No Throat pain, No Throat swelling, No Other Cardiovascular: No Chest Pain, No Palpitations, No Orthopnea, No Paroxysmal Noc. Dyspnea, No Edema, No Lt Headedness, No Other Respiratory: No Cough, No Dry; Shortness of breath; No SOB with excertion, No Wheezing, No Hemoptysis, No Pleuritic Pain, No Sputum, No Other Gastrointestinal: No Nausea, No Vomiting, No Abdominal Pain, No Diarrhea, No Constipation, No Melena, No Hematochezia, No Other Genitourinary: No Dysuria, No Frequency, No Incontinence, No Hematuria, No Retention, No Other Musculoskeletal: No other, No neck pain, No shoulder pain, No arm pain, No back pain, No hand pain, No leg pain, No foot pain Skin: No Rash, No Lesions, No Jaundice, No Bruising, No Other Objective Vitals Vital Signs Date Time Temp Pulse Resp B/P (MAP) Pulse Ox O2 Delivery O2 Flow Rate FiO2 07/12/24 11:43 113/63 07/12/24 08:00 97.6 114 40 93 97.6 07/12/24 06:00 Nasal Cannula* 2 28 Intake/Output Intake and Output 07/12/24 07:00 Intake Total 5001.25 ml Output Total 1450 ml Balance 3551.25 ml Intake Oral 1950 ml IV Total 3051.25 ml Output Urine Total 1450 ml # Bowel Movements 11 General Appearance: Alert, Oriented X3, Cooperative, mild distress HEENT: Atraumatic, PERRLA Lungs: Clear to auscultation Cardiovascular: Regular rate Abdomen: Other ([id number] distention) Musculoskeletal: Normal sensory function, Normal motor function Neuro: Normal speech, Cranial nerves 3-12 NL Skin: Dry, Intact Psych/Mental Status: Mental status NL, Mood NL Medications Current Medications Medications Dose Ordered Sig/Era Route Start Time Stop Time Status Last Admin Dose Admin Pantoprazole Sodium 40 mg DAILY IV 07/07/24 10:00 07/12/24 10:02 40 MG Acetaminophen/ Hydrocodone Bitart 1 tab Q4HP PRN PO 07/06/24 20:15 07/12/24 08:06 1 TAB Multivitamins 1 tab DAILY PO 07/07/24 10:00 07/12/24 10:03 1 TAB Acetaminophen 650 mg Q6HP PRN PO 07/06/24 20:15 07/08/24 06:21 650 MG Trimethoprim/ Sulfamethoxazole 1 tab Q12HR PO 07/07/24 10:00 07/12/24 10:02 1 TAB Prochlorperazine Edisylate 5 mg Q4HPRN PRN IV 07/06/24 21:45 07/11/24 14:21 5 MG Nitroglycerin 0.4 mg Q5MINP PRN SL 07/06/24 21:45 Morphine Sulfate 2 mg Q30M PRN IV 07/06/24 21:45 Cancel Norepinephrine Bitartrate 250 ml @ 3.75 mls/hr Q24H IV 07/07/24 03:30 07/12/24 05:49 22.5 MLS/HR Morphine Sulfate 2 mg Q30MIN PRN IV 07/07/24 06:45 Cancel Loperamide HCl 2 mg PRN PRN PO 07/08/24 08:45 Hold 07/11/24 03:15 2 MG Saccharomyces Boulardii 250 mg DAILY PO 07/08/24 10:00 07/12/24 10:02 250 MG Morphine Sulfate 2 mg Q30M PRN IV 07/08/24 09:15 07/08/24 15:51 2 MG Al Hydrox/Mg Hydrox/Simethicone 5 ml QID MT 07/08/24 18:00 07/12/24 05:48 5 ML Nystatin 5 ml QID MT 07/08/24 18:00 07/12/24 05:44 5 ML Lorazepam 0.5 mg Q6HP PRN IV 07/09/24 02:30 07/12/24 05:44 0.5 MG Ciprofloxacin 200 ml @ 200 mls/hr Q12HR IV 07/09/24 22:00 07/12/24 10:04 200 MLS/HR Rifampin 300 mg BID PO 07/09/24 22:00 UNV Ethambutol HCl 800 mg DAILY PO 07/09/24 15:45 07/12/24 10:03 800 MG Patient Own Medication 1 DAILY PO 07/10/24 10:00 07/12/24 10:03 1 Midodrine 10 mg TID@0800,1400,2200 PO 07/10/24 08:00 07/12/24 08:06 10 MG Hydrocortisone Sodium Succinate 100 mg Q12HR IV 07/10/24 10:00 07/11/24 22:31 100 MG Cholestyramine Resin 4 gm BID PO 07/10/24 22:00 07/12/24 10:02 4 GM Diphenoxylate HCl/ Atropine 2.5 mg Q12HP PRN PO 07/11/24 13:30 07/12/24 05:44 2.5 MG Midazolam HCl 50 ml @ 1 mls/hr Q24H IV 07/12/24 10:30 07/12/24 10:30 1 MLS/HR Fentanyl Citrate 250 ml @ 2.5 mls/hr Q24H IV 07/12/24 10:30 07/12/24 10:30 2.5 MLS/HR Phenylephrine HCl 250 ml @ 30 mls/hr Q8H20M IV 07/12/24 10:30 Sodium Bicarbonate 50 ml/ Sodium Chloride 1,050 ml @ 50 mls/hr Q21H IV 07/12/24 12:00 Laboratory Results Laboratory Tests 07/12/24 03:57 Chemistry Test 07/12/24 03:57 Calcium Level 6.2 mg/dL (8.7-10.4) L Magnesium Level 1.8 mg/dL (1.6-2.6) Urinalysis Test 07/07/24 09:40 Urine Color Light-yellow (Yellow) Urine Clarity Hazy (Clear) H Urine pH 6.0 (5.0-9.0) Urine Specific [place] 1.010 (1.001-1.035) Urine Protein Trace (Negative) H Urine Ketones Negative (Negative) Urine Blood Negative /uL (Negative) Urine Nitrite Negative (Negative) Urine Bilirubin Negative (Negative) Urine Urobilinogen Normal mg/dL (Negative) Urine Leukocyte Esterase 2+ /uL (Negative) Urine RBC 2 /hpf (0 - 4) Urine Microscopic WBC 6 /HPF (0-5) H Urine Squamous Epithelial Cells Few /hpf (<5) Urine Bacteria Few /hpf (None Seen) H Urine Hyaline Casts Few /lpf (0 - 2) Urine Yeast with Hyphae Present /hpf Urine Yeast (Budding) Occasional /hpf (None Urine Glucose Normal mg/dL (Normal) Blood Gas Results Test 07/12/24 10:18 Arterial Blood pH 7.400 (7.350-7.450) FiO2 % 40.0 Microbiology Microbiology Date/Time Source Procedure Growth Status 07/09/24 17:00 Urine - [employer] [place] Urine Culture - Final Complete 07/08/24 04:15 Nose MRSA Screen - Final Complete 07/06/24 18:30 Stool Clostridium difficile Toxin Assay - Final Complete 07/06/24 18:21 Blood Blood Culture - Final NO GROWTH AFTER 5 DAYS OF INCUBATION. Complete Labs and/or images reviewed: Labs reviewed by me, Image(s) reviewed by me Assessment/Plan Assessment/Plan (1) HIV disease (2) Diarrhea (3) History of HIV or AIDS (4) Pneumocystis jiroveci pneumonia (5) Opportunistic infection (6) Generalized weakness (7) Pancytopenia (8) Hypoalbuminemia (9) Anemia, unspecified Plan Discussed with Dr. Wilkinson Recommend TPN for nutrition Continue current antibiotic treatment We will continue to follow patient Plan discussed with: Other (RN) Date of Service: Jul 12, 2024 Billing Provider: SERG ANNE Common Visit Codes: [id number] INP/OBS CARE(HIGH) SERG ANNE Jul 12, 2024 12:39
--- NOTE | 2024-07-12 13:10 | DVHPN2 ---
Subjective Patient has severe lethargy today. Tachypnea. Reviewed: Care Plan, H&P, Labs, Medications Changes from previous H/P or p: Changes General: Per HPI Eyes: No Pain, No Vision change, No Conjunctivae inflammation, No Eyelid inflammation, No Other, No Redness ENT: No Ear pain, No Ear discharge, No Nose pain, No Nose discharge, No Nose congestion, No Mouth pain, No Mouth swelling, No Throat pain, No Throat swelling, No Other Cardiovascular: No Chest Pain, No Palpitations, No Orthopnea, No Paroxysmal Noc. Dyspnea, No Edema, No Lt Headedness, No Other Respiratory: No Cough, No Dry; Shortness of breath; No SOB with excertion, No Wheezing, No Hemoptysis, No Pleuritic Pain, No Sputum, No Other Gastrointestinal: No Nausea, No Vomiting, No Abdominal Pain, No Diarrhea, No Constipation, No Melena, No Hematochezia, No Other Genitourinary: No Dysuria, No Frequency, No Incontinence, No Hematuria, No Retention, No Other Musculoskeletal: No other, No neck pain, No shoulder pain, No arm pain, No back pain, No hand pain, No leg pain, No foot pain Skin: No Rash, No Lesions, No Jaundice, No Bruising, No Other Objective Vitals Vital Signs Date Time Temp Pulse Resp B/P (MAP) Pulse Ox O2 Delivery O2 Flow Rate FiO2 07/12/24 11:43 113/63 07/12/24 08:00 97.6 114 40 93 97.6 07/12/24 06:00 Nasal Cannula* 2 28 Intake/Output Intake and Output 07/12/24 07:00 Intake Total 5001.25 ml Output Total 1450 ml Balance 3551.25 ml Intake Oral 1950 ml IV Total 3051.25 ml Output Urine Total 1450 ml # Bowel Movements 11 General Appearance: Alert, mild distress HEENT: Atraumatic, PERRLA Lungs: Normal air movement Cardiovascular: Normal S1, Normal S2, Other (Sinus tachycardia) Abdomen: Other ([id number] distention) Musculoskeletal: Normal sensory function, Normal motor function Neuro: Normal speech, Cranial nerves 3-12 NL Skin: Dry, Intact Psych/Mental Status: Mental status NL, Mood NL Medications Current Medications Medications Dose Ordered Sig/Era Route Start Time Stop Time Status Last Admin Dose Admin Pantoprazole Sodium 40 mg DAILY IV 07/07/24 10:00 07/12/24 10:02 40 MG Acetaminophen/ Hydrocodone Bitart 1 tab Q4HP PRN PO 07/06/24 20:15 07/12/24 08:06 1 TAB Multivitamins 1 tab DAILY PO 07/07/24 10:00 07/12/24 10:03 1 TAB Acetaminophen 650 mg Q6HP PRN PO 07/06/24 20:15 07/08/24 06:21 650 MG Trimethoprim/ Sulfamethoxazole 1 tab Q12HR PO 07/07/24 10:00 07/12/24 10:02 1 TAB Prochlorperazine Edisylate 5 mg Q4HPRN PRN IV 07/06/24 21:45 07/11/24 14:21 5 MG Nitroglycerin 0.4 mg Q5MINP PRN SL 07/06/24 21:45 Morphine Sulfate 2 mg Q30M PRN IV 07/06/24 21:45 Cancel Norepinephrine Bitartrate 250 ml @ 3.75 mls/hr Q24H IV 07/07/24 03:30 07/12/24 05:49 22.5 MLS/HR Morphine Sulfate 2 mg Q30MIN PRN IV 07/07/24 06:45 Cancel Loperamide HCl 2 mg PRN PRN PO 07/08/24 08:45 Hold 07/11/24 03:15 2 MG Saccharomyces Boulardii 250 mg DAILY PO 07/08/24 10:00 07/12/24 10:02 250 MG Morphine Sulfate 2 mg Q30M PRN IV 07/08/24 09:15 07/08/24 15:51 2 MG Al Hydrox/Mg Hydrox/Simethicone 5 ml QID MT 07/08/24 18:00 07/12/24 05:48 5 ML Nystatin 5 ml QID MT 07/08/24 18:00 07/12/24 05:44 5 ML Lorazepam 0.5 mg Q6HP PRN IV 07/09/24 02:30 07/12/24 05:44 0.5 MG Ciprofloxacin 200 ml @ 200 mls/hr Q12HR IV 07/09/24 22:00 07/12/24 10:04 200 MLS/HR Rifampin 300 mg BID PO 07/09/24 22:00 UNV Ethambutol HCl 800 mg DAILY PO 07/09/24 15:45 07/12/24 10:03 800 MG Patient Own Medication 1 DAILY PO 07/10/24 10:00 07/12/24 10:03 1 Midodrine 10 mg TID@0800,1400,2200 PO 07/10/24 08:00 07/12/24 08:06 10 MG Hydrocortisone Sodium Succinate 100 mg Q12HR IV 07/10/24 10:00 07/11/24 22:31 100 MG Cholestyramine Resin 4 gm BID PO 07/10/24 22:00 07/12/24 10:02 4 GM Diphenoxylate HCl/ Atropine 2.5 mg Q12HP PRN PO 07/11/24 13:30 07/12/24 05:44 2.5 MG Midazolam HCl 50 ml @ 1 mls/hr Q24H IV 07/12/24 10:30 07/12/24 10:30 1 MLS/HR Fentanyl Citrate 250 ml @ 2.5 mls/hr Q24H IV 07/12/24 10:30 07/12/24 10:30 2.5 MLS/HR Phenylephrine HCl 250 ml @ 30 mls/hr Q8H20M IV 07/12/24 10:30 Sodium Bicarbonate 50 ml/ Sodium Chloride 1,050 ml @ 50 mls/hr Q21H IV 07/12/24 12:00 Laboratory Results Laboratory Tests 07/12/24 03:57 Chemistry Test 07/12/24 03:57 Calcium Level 6.2 mg/dL (8.7-10.4) L Magnesium Level 1.8 mg/dL (1.6-2.6) Urinalysis Test 07/07/24 09:40 Urine Color Light-yellow (Yellow) Urine Clarity Hazy (Clear) H Urine pH 6.0 (5.0-9.0) Urine Specific [place] 1.010 (1.001-1.035) Urine Protein Trace (Negative) H Urine Ketones Negative (Negative) Urine Blood Negative /uL (Negative) Urine Nitrite Negative (Negative) Urine Bilirubin Negative (Negative) Urine Urobilinogen Normal mg/dL (Negative) Urine Leukocyte Esterase 2+ /uL (Negative) Urine RBC 2 /hpf (0 - 4) Urine Microscopic WBC 6 /HPF (0-5) H Urine Squamous Epithelial Cells Few /hpf (<5) Urine Bacteria Few /hpf (None Seen) H Urine Hyaline Casts Few /lpf (0 - 2) Urine Yeast with Hyphae Present /hpf Urine Yeast (Budding) Occasional /hpf (None Urine Glucose Normal mg/dL (Normal) Blood Gas Results Test 07/12/24 10:18 Arterial Blood pH 7.400 (7.350-7.450) FiO2 % 40.0 Microbiology Microbiology Date/Time Source Procedure Growth Status 07/09/24 17:00 Urine - [facility] [place] Urine Culture - Final Complete 07/08/24 04:15 Nose MRSA Screen - Final Complete 07/06/24 18:30 Stool Clostridium difficile Toxin Assay - Final Complete 07/06/24 18:21 Blood Blood Culture - Final NO GROWTH AFTER 5 DAYS OF INCUBATION. Complete Labs and/or images reviewed: Labs reviewed by me, Image(s) reviewed by me Assessment/Plan Assessment/Plan Impression: -septic shock -severe hypovolemia -rule out colitis -anemia, rule out GI bleed -HIV -MAC -cachexia -hyponatremia Plan: Events: Overall worsening clinical status. Patient tachypneic, tachycardic with generalized lethargy. Patient was endotracheally intubated by myself. Patient also has central line and arterial line placed. Continues to have metabolic acidosis with multiple bowel movements. Continue ID recommendations. Start TPN. -continue hydrocortisone 100 mg b.i.d. -continue loperamide, add Questran -ID consultation pending -potassium replacement -Levophed to keep map greater than 65 mmHg -restart sodium bicarbonate drip -continue antimicrobials per Infectious Disease -repeat labs, chest x-ray, ABG in a.m. Critical care time spent with patient discussing and formulating plan of care: 40 minutes. This does not include time spent performing procedures. This medical document was created using an electronic medical record system with Dragon Law dictation system. Although this document has been carefully reviewed, there may still be some phonetic and typographical errors. These areas are purely typographical due to imperfections of the software programs, and do not reflect any compromise in the patient's medical care. Plan discussed with: Patient, Other (RN) My Orders Orders - RACHEL CARLSON POLITICAL SCIENCE RESEARCH ASSISTANT Procedure Category Date Status Time Chest Portable XY 07/12/24 Resulted 09:05 Ventilator Orders RT 07/12/24 Transmitted 10:25 Midazolam Drip 50 PHA 07/12/24 In Process Mg/50ml (Versed Drip 5 10:30 Fentanyl Drip PHA 07/12/24 In Process 2500mcg/250mlns 10:30 Rass Sedation Scale ARISTEO 07/12/24 In Process 10:25 Phenylephrine Iv PHA 07/12/24 In Process (Phenylephrine/Ns) 10:30 Chest Xray 1 View XY 07/12/24 Resulted 10:37 Respiratory Culture IBAN 07/12/24 In Process W/ Gs 10:59 Abg W/ Co-Ox RT 07/12/24 Logged 11:40 Ventilator Orders RT 07/12/24 Transmitted 10:59 Abg W/ Co-Ox RT 07/12/24 Logged 11:02 Us Guided Vascular US 07/12/24 Logged Access 11:04 Electrocardigram EKG 07/12/24 Logged 11:33 Sod Chl 0.45% PHA 07/12/24 In Process (Sodi... W/Sodium 12:00 Chest Portable XY 07/12/24 Logged 12:41 Diltiazem Injection PHA 07/12/24 Logged (Cardizem Injection) 12:45 Date of Service: Jul 12, 2024 Billing Provider: RACHEL CARLSON NP Common Visit Codes: [id number] CARE 30-74 MIN, [id number] CARE-EACH +30MIN RACHEL CARLSON NP Jul 12, 2024 13:10
--- NOTE | 2024-07-12 13:14 | DVHNC2 ---
Arterial Puncture Indication: Assess ventilatory status, Assess acid-base status Procedure: Sterile Preparation, Arterial Punct Obtained Location: Right Femoral Informed consent obtained: Yes Risks/benefits/alt described: Yes Notes Estimated blood loss: 5ml Ultrasound guidance: 55993 Date of Service: Jul 12, 2024 Billing Provider: RACHEL CARLSON NP Common Visit Codes: PROCEDURE ONLY Procedure Codes: [id number] RACHEL CARLSON NP Jul 12, 2024 13:14
--- NOTE | 2024-07-12 13:18 | DVH ---
CHEST RADIOGRAPH Indication: tube repositioned and central line placement Technique: Single frontal view of the chest was obtained COMPARISON: XY CHEST XRAY 1 VIEW on DOS: 07/12/24, XY CHEST PORTABLE on DOS: 07/12/24, XY CHEST PORTABLE on DOS: 07/06/24, XY CHEST PORTABLE on DOS: 05/01/24, XY CHEST PORTABLE on DOS: 04/29/24 FINDINGS: Lines and Tubes: Endotracheal tube in satisfactory position. Enteric catheter in satisfactory positi on. Right central venous catheter extends into the right jugular vein. Lungs: Multifocal airspace disease Pleura: No effusion. No pneumothorax. Cardiomediastinal contours: Cardiomegaly Bones: Unremarkable IMPRESSION: Right central venous catheter extends into the right jugular vein. Repositioning required.
--- NOTE | 2024-07-12 13:20 | DVHNC2 ---
Intubation Indication: Respiratory Insufficiency, Altered Mental Status, Airway Protection Prep: Preoxygenation Pretreated with: Sedation Medicated with: Vecuronium Intubation Approach: Orotracheal Intubation size: cm (8.0) Informed consent obtained: No Risks/benefits/alt described: Yes Notes Patient intubated with 8.0 ET tube using glide scope x1 attempt. Secured at 21 cm at the lip Date of Service: Jul 12, 2024 Billing Provider: RACHEL CARLSON NP Common Visit Codes: PROCEDURE ONLY Procedure Codes: [id number] RACHEL CARLSON NP Jul 12, 2024 13:20
--- NOTE | 2024-07-12 13:22 | DVHNC2 ---
Central Line Recorder of insertion practice: Marketing Campaign Analyst Occupation of teleprinter: Other (Jared Carlson NP) Indication: Hypotension, CVP monitoring Room prepared for procedure: Yes Marketing Campaign Analyst performed hand hygien: Yes Maximal sterile barrier precau: Mask/Eye shield, Sterile gown, Cap, Sterlie gloves, Large sterlie drape Skin Preparation: Chlorhexidine gluconate Skin preparation completely dr: Yes Insertion site: Right, Internal jugular Central line catheter type: Fdt-aajjemsa-mrg dialysis Number of lumens: 3 Central line exchanged over a: No Post Assessment: Proper placement, No Pneumothorax Notes Estimated blood loss: 5 mL Ultrasound guidance CPT code: 41033 Date of Service: Jul 12, 2024 Billing Provider: RACHEL CARLSON NP Common Visit Codes: PROCEDURE ONLY Procedure Codes: [id number] NON-TUNNEL CV CATH RACHEL CARLSON NP Jul 12, 2024 13:22
--- NOTE | 2024-07-12 13:26 | DVH ---
Date: 07/12/2024 12:43 PM Examination: XY KUB ABDOMEN SINGLE VIEW History: abd distension Comparison: None TECHNIQUE: Frontal views of the abdomen was obtained. FINDINGS: Bowel gas pattern is unremarkable. Dilated loops of small bowel measuring up to 6cm. No acute osseous abnormality identified. IUD is noted. IMPRESSION: Diffuse small bowel obstruction
[2024-07-12 15:19] LABS: Base Excess -16.5 mmol/L (-2.0-3.0)
[2024-07-12] MEDS: SODIUM BICARB 50mEq/50ml Vial 50 ML in SOD CHL 0.45% 1,000 ML IV SCH (15:45)
[2024-07-12] MEDS: PHENYLEPHRINE IV 250 ML IV SCH (16:23)
[2024-07-12 16:33] LABS: INR 1.33 (0.9-1.15); Partial Thromboplastin Time 47.8 SEC (24.5-34.5); Prothrombin Time 13.7 sec (9.3-11.8)
[2024-07-12] MEDS ORDERED: TPN PER PHARMACY 0 ML IV SCH (17:30)
[2024-07-12] MEDS: FUROSEMIDE 40 MG/4 ML VIAL IV ONE (18:00)
[2024-07-12] MEDS: VASOPRESSIN 20 UNITS in SODIUM CHL 0.9% 99 ML IV SCH (18:20)
[2024-07-12] MEDS: SODIUM BICARB 8.4% 50Meq/50ml SYR INJ ONE (20:40)
[2024-07-12] MEDS: LIDOCAINE 1% (LOCAL ANESTH.) PF 5ml SDV ID ONE (20:59)
[2024-07-12 21:37] LABS: Base Excess -14.2 mmol/L (-2.0-3.0)
[2024-07-12 22:04] LABS: Base Excess -11.1 mmol/L (-2.0-3.0)
[2024-07-12] MEDS: PHENYLEPHRINE IV 250 ML IV ONE (22:15)
[2024-07-12] MEDS: SODIUM CHLOR 0.9% PF (SALINE LOCK) 10ML VIAL/SYR IV SCH (22:16)
[2024-07-12] MEDS: AMINO ACID INFUSION IN D10W 1,000 ML IV SCH (22:30)
--- NOTE | 2024-07-12 23:15 | DVHINCON2 ---
Date of service: Jul 12, 2024 Referring Physician Vincent Chaves NP Reason for Consultation Acute hypoxic respiratory failure requiring mechanical ventilator. History of Present Illness A 28-year-old woman with past medical history of HIV, MAC, and multiple blood transfusions who presented to ED on 07/06/24 with complaint of generalized weakness. Patient reported progressively worsening sx with increased weakness and substernal chest pain associated with shortness of breath, prompting her to seek medical care. ED workup included labs showing WBC 3.7, hemoglobin 7.3, hematocrit 22.9, platelets 58775, sodium 127, potassium 3.3, BUN 12, creatinine 0.38, glucose 69, calcium 6.6, lactic acid 2.3, troponin < 3, BNP 28.03, protein 5.3, albumin 1.6. Vitals were BP 75/42 trending up to 121/64, heart rate 140 trending down to 102, temperature 99.3 F, O2 saturation 98% on oxygen. Abdomen/pelvis CT revealing splenomegaly measuring 20 cm, IUD in uterus, gallbladder surgically removed. Patient received 2 units of PRBC and was admitted for further care. Pulmonary consultation is requested for evaluation and management of acute hypoxic respiratory failure requiring mechanical ventilator. Review of Systems: 14-point review of systems negative unless otherwise noted above. Past Medical History Multiple blood transfusions, HIV, MAC Past Surgical History section, Tonsillectomy, Cholecystectomy Medications: Reviewed. Allergies: No known drug allergies. Family History: No family history of premature CAD. No family history of lung disorders. Social History: Nonsmoker. No alcohol or illicit drug use. Family History: Patient reports no known family medical history. Allergies: Coded Allergies: NO KNOWN ALLERGIES (Unverified , 10/22/20) Home Meds Active Scripts Sulfamethoxazole W/Trimethopri (Bactrim Ds Tablet) 1 Tab Tb, 2 TAB PO Q8HR for 21 Days, #126 TAB Prov:MAXIM NIELSEN PAC 07/08/23 Benzonatate (Benzonatate) 100 Mg Cap, 1-2 CAP PO Q4HR, #60 CAP Prov:MAXIM NIELSEN PAC 07/08/23 Permethrin (Elimite) 5 % Cre, 1 APPLIC TOP ONCE, #60 GRAMS 1 Refill Prov:TONY NAVARRO 05/13/22 Cephalexin ( Keflex 500) 500 Mg Cap, 1 CAP PO QID, #40 CAP Prov:TONY NAVARRO 05/13/22 Sulfamethoxazole W/Trimethopri (Bactrim Ds Tablet) 1 Tab Tb, 1 TAB PO BID for 10 Days, #20 TAB Prov:TONY NAVARRO 05/13/22 Ibuprofen (Ibuprofen) 800 Mg Tab, 1 TAB PO TID, #30 TAB Prov:TONY NAVARRO 05/13/22 Clindamycin Hcl (Clindamycin Hcl) 300 Mg Cap, 1 CAP PO TID for 10 Days, #21 CAP 0 Refills Prov:AMAYA SÁNCHEZ 11/19/21 Reported Medications Fzndzblflcs-Imqotxpylhdfu-Zljb (Biktarvy 50-200-25 mg) 1 Tab Tab, 1 TAB PO, TAB 07/11/24 Levothyroxine Sodium (SYNTHROID) 100 Mcg/5 Ml Ij, 100 MCG IV, INJ 07/11/24 Midodrine HCl (Midodrine HCl) 10 Mg Tab, 10 MG GT, TAB 07/11/24 Azithromycin (Azithromycin) 500 Mg Tab, 500 MG PO DAILY 07/11/24 Sulfamethoxazole-Trimethoprim (Bactrim) 1 Tab Tab, 1 TAB PO DAILY, MG 07/11/24 Ethambutol Hcl (Ethambutol Hcl) 400 Mg Tab, 1200 MG PO DAILY, MG 07/11/24 Vit W/ Ferrous Fumara ( One Daily) Daily Tab, 1 TAB PO DAILY, #90 TAB 3 Refills 10/22/20 Emtricitabine-Tenofovir Disopr (Truvada) Tab, 1 TAB PO DAILY, #30 TAB 2 Refills 10/22/20 Current Medications Current Medications Medications (Trade) Dose Ordered Sig/Era Route PRN Reason Start Time Stop Time Status Last Admin Midazolam HCl 50 ml @ 1 mls/hr Q24H IV 07/12/24 10:30 07/12/24 23:10 Fentanyl Citrate 250 ml @ 2.5 mls/hr Q24H IV 07/12/24 10:30 07/12/24 10:30 Phenylephrine HCl 250 ml @ 30 mls/hr Q8H20M IV 07/12/24 10:30 07/12/24 22:14 Sodium Bicarbonate 50 ml/ Sodium Chloride 1,050 ml @ 50 mls/hr Q21H IV 07/12/24 12:00 07/12/24 15:45 Vasopressin 20 units/Sodium Chloride 100 ml @ 9 mls/hr Q11H7M IV 07/12/24 17:30 07/12/24 18:20 Amino Acids 0 ml @ 0 mls/hr PER PHARMACY IV 07/12/24 17:30 Amino Acids/ Electrolytes/ Dextrose 1,000 ml @ 41 mls/hr DAILY@2200 IV 07/12/24 22:00 07/13/24 21:59 07/12/24 22:30 Diagnostic Test (Pha) (Accu-Chek Comfort Curve T) 1 strip Q6HR 07/13/24 00:00 Insulin Human Regular (InsuLIN R) FOLLOW SLIDING SCALE Q6HR SC 07/13/24 00:00 Dextrose 50 ml UD IV 07/12/24 17:45 Sodium Chloride (Saline Lock Ns) 10 ml QSHIFT@10,22 IV 07/12/24 22:00 07/12/24 22:16 Vital Signs Vital Signs Date Time Temp Pulse Resp B/P (MAP) Pulse Ox O2 Delivery O2 Flow Rate FiO2 07/12/24 22:29 100.6 07/12/24 22:14 100/49 07/12/24 22:00 124 26 94 60 07/12/24 20:00 Mechanical Ventilator+ 07/12/24 10:00 6 Physical Exam Gen.: Patient lying in bed in medical ICU. Sedated, intubated on mechanical ventilator. Head: Normocephalic, atraumatic. Eyes: PERRLA. Ears: Normal external anatomy. Throat: Endotracheal tube and orogastric tube in place. Neck: Supple, trachea midline. Chest: Transmitted breath sounds bilaterally. Decreased air entry bilaterally. No wheezing. Bibasilar crackles. Cardiovascular: Positive S1, positive S2. Regular rate and rhythm. Abdomen: Positive bowel sounds in all 4 quadrants. Soft, nontender, nondistended. : Merchant in place. Normal external genitalia. Rectal: Deferred. Skin: Warm, dry. Intact. Extremities: 2+ radial pulses bilaterally. No lower extremity edema. Neuro: Sedated. Labs/Diagnostic Data Labs Test 07/12/24 21:47 07/12/24 20:22 07/12/24 16:10 07/12/24 13:02 Range/Units Blood Gas Specimen Type Arterial Blood Gas Sample Site Arterial line Blood Gas Patient Temperature 37.0 Arterial Blood Date Drawn [id number] Arterial Blood pH 7.297 L 7.350-7.450 Arterial Blood Partial Pressure CO2 29.5 L 32.0-45.0 mmHg Arterial Blood Partial Pressure O2 102.9 83.0-108.0 mmHg Arterial Blood HCO3 14.1 L 21.0-28.0 mmol/L Arterial Blood Oxygen Saturation 96.4 94.0-98.0 % Arterial Blood Base Excess -11.1 L -2.0-3.0 mmol/L Arterial Blood Oxyhemoglobin 95.5 94.0-98.0 % Arterial Blood Carboxyhemoglobin 0.4 L 0.5-1.5 % Arterial Blood Methemoglobin 0.5 0.0-1.5 % Jhonathan Test N/a Blood Gas Total Hemoglobin 10.20 L 12.0-16.0 g/dL Blood Gas Set Respiration Rate 26.0 Blood Gas Modality Vent - ac Blood Gas Spontaneous Rate 26 FiO2 % 60.0 Blood Gas Tidal Volume 450.0 Blood Gas PEEP or CPAP 8.0 Blood Gas Critical Value Read Back yes Blood Gas Notified Whom nnps jean carlos bill Blood Gas Notified Time [id number] Blood Gas Notified By brand activation manager yasmine anderson Prothrombin Time 13.7 H 9.3-11.8 sec Prothrombin Time INR 1.33 H 0.9-1.15 Activated Partial Thromboplast Time 47.8 H 24.5-34.5 SEC POC Glucose 140 H 70-106 mg/dl Test 07/12/24 10:18 07/12/24 03:57 07/10/24 08:08 07/09/24 05:00 Range/Units Blood Gas Liter Flow 5.00 White Blood Count 5.1 4.4-10.8 10^3/uL Red Blood Count 3.88 L 4.0-5.20 10^6/uL Hemoglobin 11.1 #L 12.2-16.2 g/dL Hematocrit 33.0 #L 36.0-46.0 % Mean Corpuscular Volume 85.1 80.0-100.0 fL Mean Corpuscular Hemoglobin 28.5 28.0-32.0 pg Mean Corpuscular Hemoglobin Concent 33.5 32.0-36.0 g/dL Red Cell Distribution Width 18.6 H 11.8-14.3 % Platelet Count 56 L 140-450 10^3/uL Mean Platelet Volume 8.4 6.9-10.8 fL Neutrophils (%) (Auto) 74.7 37.0-80.0 % Lymphocytes (%) (Auto) 22.4 10.0-50.0 % Monocytes (%) (Auto) 2.4 0.0-12.0 % Eosinophils (%) (Auto) 0.2 0.0-7.0 % Basophils (%) (Auto) 0.3 0.0-2.0 % Neutrophils # (Auto) 3.8 1.6-8.6 10 ^3/uL Lymphocytes # (Auto) 1.1 0.4-5.4 10 ^3/uL Monocytes # (Auto) 0.1 0-1.3 10 ^3/uL Eosinophils # (Auto) 0 0-0.8 10 ^3/uL Basophils # (Auto) 0 0-0.2 10 ^3/uL Nucleated Red Blood Cells 0.7 % Sodium Level 129 L 136-145 mmol/L Potassium Level 3.9 3.5-5.1 mmol/L Chloride Level 101 98-107 mmol/L Carbon Dioxide Level 17 L 20-31 mmol/L Anion Gap 11 5-15 Blood Urea Nitrogen 10 9-23 mg/dL Creatinine 0.27 L 0.550-1.02 mg/dL Glomerular Filtration Rate Calc 151 >90 mL/min BUN/Creatinine Ratio 37.0 H 10.0-20.0 Serum Glucose 111 H 74-106 mg/dL Calcium Level 6.2 L 8.7-10.4 mg/dL Magnesium Level 1.8 1.6-2.6 mg/dL Venous Blood pH 7.332 7.320-7.430 Venous Blood pCO2 at Patient Temp 25.6 L 38.0-54.0 mmHg Venous Blood pO2 at Patient Temp < 36.5 23.0-48.0 mmHg Venous Blood HCO3 13.3 L 22.0-29.0 mmol/L Venous Blood Base Excess -10.7 L -2.0-3.0 mmol/L Differential Total Cells Counted 100.0 100 Neutrophils % (Manual) 50 37.0-80.0 Band Neutrophils % (Manual) 0 Lymphocytes % (Manual) 37 10.0-50.0 Monocytes % (Manual) 13 H 0-12 Eosinophils % (Manual) 0 0-7 Basophils % (Manual) 0 0.0-2.0 Metamyelocytes % (manual) 0 Myelocytes % (Manual) 0 Promyelocytes % (Manual) 0 Blast Cells % (Manual) 0 Reactive Lymphocytes 0 Platelet Estimate Decreased Test 07/08/24 22:00 07/08/24 08:34 07/08/24 04:20 07/07/24 09:40 Range/Units Stool Occult Blood Positive Negative Stool Occult Blood Sample #3 Negative Erythrocyte Sedimentation Rate 9 0-20 mm/hr C-Reactive Protein High Sensitivity 8.58 H <1.0 mg/dL Urine Color Light-yellow Yellow Urine Clarity Hazy H Clear Urine pH 6.0 5.0-9.0 Urine Specific [place] 1.010 1.001-1.035 Urine Protein Trace H Negative Urine Ketones Negative Negative Urine Blood Negative Negative /uL Urine Nitrite Negative Negative Urine Bilirubin Negative Negative Urine Urobilinogen Normal Negative mg/dL Urine Leukocyte Esterase 2+ Negative /uL Urine RBC 2 0 - 4 /hpf Urine Microscopic WBC 6 H 0-5 /HPF Urine Squamous Epithelial Cells Few <5 /hpf Urine Bacteria Few H None Seen /hpf Urine Hyaline Casts Few 0 - 2 /lpf Urine Yeast with Hyphae Present /hpf Urine Yeast (Budding) Occasional None Seen /hpf Urine Glucose Normal Normal mg/dL Test 07/07/24 04:54 07/06/24 21:10 07/06/24 20:11 07/06/24 18:30 Range/Units Total Bilirubin 0.8 0.2-1.0 mg/dL Aspartate Amino Transferase (AST) 15 13-40 U/L Alanine Aminotransferase (ALT) < 9 7-40 U/L Alkaline Phosphatase 45 L 46-116 U/L Total Protein 5.0 L 5.7-8.2 g/dL Albumin 1.8 L 3.2-4.8 g/dL Troponin I High Sensitivity < 3 L </=34 ng/L Lactic Acid Level 1.5 0.4-2.0 mmol/L Stool for White Cells Few Test 07/06/24 18:21 Range/Units B-Type Natriuretic Peptide 28.03 0-100 pg/mL Lipase 20 12-53 U/L Microbiology Date/Time Source Procedure Growth Status 07/09/24 17:00 Urine - Merchant Port Urine Culture - Final Complete 07/08/24 04:15 Nose MRSA Screen - Final Complete 07/06/24 18:30 Stool Clostridium difficile Toxin Assay - Final Complete 07/06/24 18:21 Blood Blood Culture - Final NO GROWTH AFTER 5 DAYS OF INCUBATION. Complete Assessment Impression: Acute hypoxic respiratory failure On mechanical ventilator Septic shock Pneumonia Anemia, rule out GI hemorrhage Human immunodeficiency virus disease Mycobacterium avium complex Plan: s/p intubation on mechanical ventilator. CXR image and report reviewed. ABG reviewed, notable for acidemia. On AC mode; RR 26, VT 450, PEEP 5, FiO2 50% Titrate FIO2 to keep O2 saturation above 90%. VAP bundle. Daily ABG and CXR while intubated Sedate for ventilator synchrony On bicarb drip. IV steroids Continue antibiotics. F/u cultures. Pressors as necessary for hemodynamic support Titrate to keep mean arterial pressure greater than 65 mmHg. Monitor hemoglobin Diurese with Lasix Monitor renal function Monitor electrolytes. Supplement as necessary. Monitor ins and outs. GI prophylaxis. DVT prophylaxis. Prognosis: Poor given patient's multiple co-morbidities. Condition: Critical Rest of plan per hospitalist and other consultants. A total of 35 minutes of critical care time was spent reviewing the patient record, examining the patient, making a diagnostic and therapeutic plan, discussing this plan with the medical personnel, following up on diagnostic studies and following the patient for clinical stability excluding any and all procedures. At least 50% of this time was spent in direct, [id number] contact. Thank you, BABAK Chaves, for allowing me to participate in this patient's care. Further recommendations will depend on the patient's clinical course. Please do not hesitate to contact me if you have any questions or concerns. This medical document was created using an electronic medical record system with [employer] dictation system. Although these documentations are being carefully reviewed, there may still be some phonetic and typographical changes. The errors are purely typographical, due to imperfection on the software program, and do not reflect any compromise in the patient's medical care. Plan discussed with: Other (RN/BABAK Chaves/) MAGALY LOPEZ MD Jul 12, 2024 23:15
[2024-07-12] MEDS: SODIUM BICARB 50mEq/50ml Vial 150 ML in D5W 5% 1,000 ML IV SCH (23:34)
[2024-07-12] MEDS: DEXTROSE (50%) 50ML SYRG IV SCH (23:52)
[2024-07-12] MEDS: InsuLIN REG 1unit/0.01ml Soln (100units/ml) SC SCH (23:52)
[2024-07-12] MEDS: ACCU-CHEK COMFORT CURVE STRIP VI SCH (23:52)
[2024-07-13] VITALS (108 sets, daily range): BP systolic 63–137; BP diastolic 31–92; PULSE 18–136; RESP 21–29; TEMP 98.8–100.8; O2SAT 92–100
[2024-07-13 05:10] LABS: Hemoglobin 9.2 g/dL (12.2-16.2); Red Blood Cells 3.26 10^6/uL (4.0-5.20); White Blood Cell 2.8 10^3/uL (4.4-10.8)
[2024-07-13 05:12] LABS: Hematocrit 28.2 % (36.0-46.0); Mean Corpuscular Hemoglobin 28.3 pg (28.0-32.0); Mean Corpuscular Hgb Conc. 32.7 g/dL (32.0-36.0); Mean Corpuscular Volume 86.5 fL (80.0-100.0); Red Cell Distribution Width 18.2 % (11.8-14.3)
[2024-07-13 05:22] LABS: Platelet Count (auto) 17 10^3/uL (140-450)
[2024-07-13 05:23] LABS: Basophils % (manual) 0 (0.0-2.0); Blast Cells 0; Eosinophils % (manual) 0 (0-7); Myelocytes % 0; Promyelocytes % 0
[2024-07-13 05:24] LABS: Alanine Aminotransferase 11 U/L (7-40); Alkaline Phosphatase 91 U/L (46-116); Anion Gap 14 (5-15); BUN/Creatinine Ratio 41.4 (10.0-20.0); Chloride 103 mmol/L (98-107); Magnesium 1.8 mg/dL (1.6-2.6); Potassium 4.4 mmol/L (3.5-5.1); Triglycerides 121 mg/dL (< 150)
[2024-07-13 05:31] LABS: Blood Urea Nitrogen 24 mg/dL (9-23); Carbon Dioxide 15 mmol/L (20-31); Glucose 127 mg/dL (74-106); Sodium 132 mmol/L (136-145)
[2024-07-13 05:32] LABS: Albumin 1.4 g/dL (3.2-4.8); Aspartate Aminotransferase 129 U/L (13-40); Bilirubin, Total < 0.2 mg/dL (0.2-1.0); Calcium 6.4 mg/dL (8.7-10.4); Phosphorus 6.9 mg/dL (2.4-5.1); Total Protein 3.7 g/dL (5.7-8.2)
--- NOTE | 2024-07-13 06:05 | DVH ---
CHEST RADIOGRAPH Indication: routine cxr for intubated patients Technique: Single frontal view of the chest was obtained COMPARISON: XY CHEST PORTABLE on DOS: 07/12/24, XY CHEST XRAY 1 VIEW on DOS: 07/12/24, XY CHEST PORTABLE on DOS: 07/12/24, XY CHEST PORTABLE on DOS: 07/06/24, XY CHEST PORTABLE on DOS: 05/01/24 FINDINGS: Lines and Tubes: Endotracheal tube, enteric catheter and left PICC in satisfactory position Lungs: Multifocal airspace disease. Low lung volumes. Pleura: No effusion. No pneumothorax. Cardiomediastinal contours: Unremarkable Bones: Unremarkable IMPRESSION: Lines and tubes in satisfactory position. No significant interval change.
[2024-07-13 06:38] LABS: Band Neutrophils % (manual) 16; Lymphocytes % (manual) 21 (10.0-50.0); Metamyelocytes % 3; Monocytes % (manual) 2 (0-12); Platelet Estimate Markedly Decreased; Reactive Lymphocytes 1
[2024-07-13 07:30] LABS: Base Excess -11.1 mmol/L (-2.0-3.0)
[2024-07-13] MEDS ORDERED: ACETAMINOPHEN 650 MG RECT SUPP PR PRN (08:30)
[2024-07-13] MEDS ORDERED: BACTRIM 5MG/KG Q8HR PER RX 0 ML IV SCH (08:30)
[2024-07-13] MEDS: SODIUM BICARB 8.4% 50Meq/50ml SYR Vial IV ONE (08:57)
--- NOTE | 2024-07-13 09:41 | DVHPN2 ---
Subjective Intubated and chemically sedated Reviewed: Care Plan, H&P, Labs, Medications Changes from previous H/P or p: No Changes General: Per HPI Eyes: No Pain, No Vision change, No Conjunctivae inflammation, No Eyelid inflammation, No Other, No Redness ENT: No Ear pain, No Ear discharge, No Nose pain, No Nose discharge, No Nose congestion, No Mouth pain, No Mouth swelling, No Throat pain, No Throat swelling, No Other Cardiovascular: No Chest Pain, No Palpitations, No Orthopnea, No Paroxysmal Noc. Dyspnea, No Edema, No Lt Headedness, No Other Respiratory: No Cough, No Dry; Shortness of breath; No SOB with excertion, No Wheezing, No Hemoptysis, No Pleuritic Pain, No Sputum, No Other Gastrointestinal: No Nausea, No Vomiting, No Abdominal Pain, No Diarrhea, No Constipation, No Melena, No Hematochezia, No Other Genitourinary: No Dysuria, No Frequency, No Incontinence, No Hematuria, No Retention, No Other Musculoskeletal: No other, No neck pain, No shoulder pain, No arm pain, No back pain, No hand pain, No leg pain, No foot pain Skin: No Rash, No Lesions, No Jaundice, No Bruising, No Other Objective Vitals Vital Signs Date Time Temp Pulse Resp B/P (MAP) Pulse Ox O2 Delivery O2 Flow Rate FiO2 07/13/24 09:34 127 27 124/68 (86) 94 50 07/13/24 06:45 100.0 212.0 07/13/24 06:00 Mechanical Ventilator+ 07/12/24 10:00 6 Intake/Output Intake and Output 07/13/24 07:00 Intake Total 4587.00 ml Output Total 550 ml Balance 4037.00 ml Intake Oral 300 ml IV Total 4287.00 ml Output Urine Total 350 ml Gastric Drainage Total 200 ml General Appearance: severe distress, Other (General ill presentation. Chemically sedated.) HEENT: Atraumatic, PERRLA Lungs: Normal air movement Cardiovascular: Normal S1, Normal S2, Other (Sinus tachycardia) Abdomen: Other (Distended abdomen) Musculoskeletal: Normal sensory function, Normal motor function Neuro: Normal speech, Cranial nerves 3-12 NL Skin: Dry, Intact Psych/Mental Status: Mental status NL, Mood NL Medications Current Medications Medications Dose Ordered Sig/Era Route Start Time Stop Time Status Last Admin Dose Admin Pantoprazole Sodium 40 mg DAILY IV 07/07/24 10:00 07/12/24 10:02 40 MG Multivitamins 1 tab DAILY PO 07/07/24 10:00 07/12/24 10:03 1 TAB Acetaminophen 650 mg Q6HP PRN PO 07/06/24 20:15 07/12/24 22:29 650 MG Prochlorperazine Edisylate 5 mg Q4HPRN PRN IV 07/06/24 21:45 07/11/24 14:21 5 MG Nitroglycerin 0.4 mg Q5MINP PRN SL 07/06/24 21:45 Morphine Sulfate 2 mg Q30M PRN IV 07/06/24 21:45 Cancel Norepinephrine Bitartrate 250 ml @ 3.75 mls/hr Q24H IV 07/07/24 03:30 07/13/24 08:51 56.25 MLS/HR Morphine Sulfate 2 mg Q30MIN PRN IV 07/07/24 06:45 Cancel Loperamide HCl 2 mg PRN PRN PO 07/08/24 08:45 Hold 07/11/24 03:15 2 MG Morphine Sulfate 2 mg Q30M PRN IV 07/08/24 09:15 07/08/24 15:51 2 MG Al Hydrox/Mg Hydrox/Simethicone 5 ml QID MT 07/08/24 18:00 07/12/24 22:16 5 ML Nystatin 5 ml QID MT 07/08/24 18:00 07/13/24 06:03 5 ML Lorazepam 0.5 mg Q6HP PRN IV 07/09/24 02:30 07/12/24 05:44 0.5 MG Ciprofloxacin 200 ml @ 200 mls/hr Q12HR IV 07/09/24 22:00 07/12/24 22:15 200 MLS/HR Rifampin 300 mg BID PO 07/09/24 22:00 UNV Ethambutol HCl 800 mg DAILY PO 07/09/24 15:45 07/12/24 10:03 800 MG Patient Own Medication 1 DAILY PO 07/10/24 10:00 07/12/24 10:03 1 Hydrocortisone Sodium Succinate 100 mg Q12HR IV 07/10/24 10:00 07/12/24 22:30 100 MG Cholestyramine Resin 4 gm BID PO 07/10/24 22:00 07/12/24 22:29 4 GM Diphenoxylate HCl/ Atropine 2.5 mg Q12HP PRN PO 07/11/24 13:30 07/12/24 05:44 2.5 MG Midazolam HCl 50 ml @ 1 mls/hr Q24H IV 07/12/24 10:30 07/13/24 06:18 6 MLS/HR Fentanyl Citrate 250 ml @ 2.5 mls/hr Q24H IV 07/12/24 10:30 07/13/24 08:46 10 MLS/HR Phenylephrine HCl 250 ml @ 30 mls/hr Q8H20M IV 07/12/24 10:30 07/13/24 08:40 105 MLS/HR Vasopressin 20 units/Sodium Chloride 100 ml @ 9 mls/hr Q11H7M IV 07/12/24 17:30 07/13/24 01:00 9 MLS/HR Amino Acids 0 ml @ 0 mls/hr PER PHARMACY IV 07/12/24 17:30 Amino Acids/ Electrolytes/ Dextrose 1,000 ml @ 41 mls/hr DAILY@2200 IV 07/12/24 22:00 07/13/24 21:59 07/12/24 22:30 41 MLS/HR Diagnostic Test (Pha) 1 strip Q6HR 07/13/24 00:00 07/13/24 06:03 1 STRIP Insulin Human Regular FOLLOW SLIDING SCALE Q6HR SC 07/13/24 00:00 Dextrose 50 ml UD IV 07/12/24 17:45 07/12/24 23:52 50 ML Sodium Chloride 10 ml QSHIFT@10,22 IV 07/12/24 22:00 07/12/24 22:16 10 ML Sodium Bicarbonate 150 ml/Dextrose 1,150 ml @ 75 mls/hr [id number] IV 07/12/24 23:15 07/12/24 23:34 75 MLS/HR Acetaminophen 650 mg Q6HP PRN KS 07/13/24 08:30 Trimethoprim/ Sulfamethoxazole 0 ml @ 0 mls/hr PER PHARMACY IV 07/13/24 08:30 Trimethoprim/ Sulfamethoxazole 20 ml/Dextrose 520 ml @ 346.667 mls/hr Q8HR IV 07/13/24 12:00 Laboratory Results Laboratory Tests 07/13/24 04:35 Chemistry Test 07/13/24 04:35 Albumin 1.4 g/dL (3.2-4.8) L Calcium Level 6.4 mg/dL (8.7-10.4) L Magnesium Level 1.8 mg/dL (1.6-2.6) Phosphorus Level 6.9 mg/dL (2.4-5.1) H Total Protein 3.7 g/dL (5.7-8.2) L Coagulation Test 07/12/24 16:10 Prothrombin Time 13.7 sec (9.3-11.8) H Prothrombin Time INR 1.33 (0.9-1.15) H Activated Partial Thromboplast Time 47.8 SEC (24.5-34.5) H Lipid panel Test 07/13/24 04:35 Triglycerides Level 121 mg/dL (< 150) LFT Test 07/13/24 04:35 Alanine Aminotransferase (ALT) 11 U/L (7-40) Alkaline Phosphatase 91 U/L (46-116) Aspartate Amino Transferase (AST) 129 U/L (13-40) H Total Bilirubin < 0.2 mg/dL (0.2-1.0) L Urinalysis Test 07/07/24 09:40 Urine Color Light-yellow (Yellow) Urine Clarity Hazy (Clear) H Urine pH 6.0 (5.0-9.0) Urine Specific [place] 1.010 (1.001-1.035) Urine Protein Trace (Negative) H Urine Ketones Negative (Negative) Urine Blood Negative /uL (Negative) Urine Nitrite Negative (Negative) Urine Bilirubin Negative (Negative) Urine Urobilinogen Normal mg/dL (Negative) Urine Leukocyte Esterase 2+ /uL (Negative) Urine RBC 2 /hpf (0 - 4) Urine Microscopic WBC 6 /HPF (0-5) H Urine Squamous Epithelial Cells Few /hpf (<5) Urine Bacteria Few /hpf (None Seen) H Urine Hyaline Casts Few /lpf (0 - 2) Urine Yeast with Hyphae Present /hpf Urine Yeast (Budding) Occasional /hpf (None Urine Glucose Normal mg/dL (Normal) Blood Gas Results Test 07/12/24 10:18 07/12/24 11:44 07/12/24 20:22 07/12/24 21:47 Arterial Blood pH 7.400 (7.350-7.450) 7.148 (7.350-7.450) 7.182 (7.350-7.450) 7.297 (7.350-7.450) FiO2 % 40.0 70.0 50.0 60.0 Test 07/13/24 07:00 Arterial Blood pH 7.292 (7.350-7.450) FiO2 % 60.0 Microbiology Microbiology Date/Time Source Procedure Growth Status 07/12/24 06:15 Sputum Gram Stain Pending Resulted 07/12/24 06:15 Sputum Respiratory Culture - Preliminary Resulted 07/09/24 17:00 Urine - Merchant Port Urine Culture - Final Complete 07/08/24 04:15 Nose MRSA Screen - Final Complete 07/06/24 18:30 Stool Clostridium difficile Toxin Assay - Final Complete 07/06/24 18:21 Blood Blood Culture - Final NO GROWTH AFTER 5 DAYS OF INCUBATION. Complete Labs and/or images reviewed: Labs reviewed by me, Image(s) reviewed by me Assessment/Plan Assessment/Plan Impression: -septic shock -severe hypovolemia -rule out colitis -anemia, rule out GI bleed -HIV -MAC -cachexia -hyponatremia -pneumonia, probable P REMIGIO/MAC Thrombocytopenia -acute hypoxic respiratory failure with mechanical ventilation Plan: Events: Patient on multiple vasopressors. Worsening pneumonia. KUB with? SBO. -NG to low intermittent suction -CT of the abdomen and pelvis -pulmonary consultation, continue current ventilator settings -continue hydrocortisone 100 mg b.i.d. -ID consultation pending -potassium replacement -Levophed to keep map greater than 65 mmHg -restart sodium bicarbonate drip -continue antimicrobials per Infectious Disease, add Zosyn -repeat labs, chest x-ray, ABG in a.m. -prognosis poor Critical care time spent with patient discussing and formulating plan of care: 90 minutes. This does not include time spent performing procedures. This medical document was created using an electronic medical record system with [employer] system. Although this document has been carefully reviewed, there may still be some phonetic and typographical errors. These areas are purely typographical due to imperfections of the software programs, and do not reflect any compromise in the patient's medical care. Plan discussed with: Patient, Other (RN) My Orders Orders - RACHEL CARLSON SWATCH PASTER Procedure Category Date Status Time Ventilator Orders RT 07/12/24 Transmitted 10:25 Midazolam Drip 50 PHA 07/12/24 In Process Mg/50ml (Versed Drip 5 10:30 Fentanyl Drip PHA 07/12/24 In Process 2500mcg/250mlns 10:30 Phenylephrine Iv PHA 07/12/24 In Process (Phenylephrine/Ns) 10:30 Chest Xray 1 View XY 07/12/24 Resulted 10:37 Respiratory Culture IBAN 07/12/24 In Process W/ Gs 10:59 Abg W/ Co-Ox RT 07/12/24 Logged 11:40 Ventilator Orders RT 07/12/24 Transmitted 10:59 Abg W/ Co-Ox RT 07/12/24 Logged 11:02 Electrocardigram EKG 07/12/24 Logged 11:33 Chest Portable XY 07/12/24 Resulted 12:41 * Picc Line Consult CONS 07/12/24 Transmitted 13:33 Sodium Chl 0.9% PHA 07/12/24 In Process (So... W/Vasopressin 17:30 Tpn Per Pharmacy PHA 07/12/24 In Process 17:30 Communication Order ORDERS 07/12/24 Transmitted 17:17 Amino Acid Infusion PHA 07/12/24 In Process In D10w (Clinimix 4. 22:00 Glucose Blood PHA 07/13/24 In Process (Accu-Chek Comfort 00:00 Insulin R (Human) PHA 07/13/24 In Process (Insulin R) 00:00 Dextrose 50% Syringe PHA 07/12/24 In Process 17:45 * Dietary Consult CONS 07/12/24 Transmitted 18:10 Clinimix Per Pharmacy [facility] 07/12/24 In Process 22:00 Us Guided Vascular US 07/12/24 Taken Access 19:36 Nursing Protocol Picc [facility] 07/12/24 In Process 19:36 Change Dressing Prn [facility] 07/12/24 In Process 19:36 PICC BD 07/12/24 Transmitted 19:36 Sodium Chloride Lock PHA 07/12/24 In Process (Saline Lock Ns) 22:00 Do Not Use Picc For [facility] 07/12/24 In Process Blood Cult 19:36 May Draw Blood From [facility] 07/12/24 In Process Picc 19:36 Ok To Use Picc [facility] 07/12/24 In Process 19:36 Abg W/ Co-Ox RT 07/12/24 Logged 20:11 Continuous Monitoring [facility] 07/12/24 In Process Of Cvp,P 13:00 Pheresis Platelets BBK 07/13/24 Logged 08:23 Acetaminophen PHA 07/13/24 In Process Suppository (Tylenol 08:30 Bactrim 5mg/Kg Q8hr PHA 07/13/24 In Process Per Rx (Bactrim) 08:30 Basic Metabolic Panel LAB 07/14/24 Verified 04:00 Complete Blood Count LAB 07/14/24 Verified 04:00 Abg W/ Co-Ox RT 07/13/24 Logged 12:00 Insert Midline ORDERS 07/13/24 Transmitted 08:23 Sulfameth-Trimeth PHA 07/13/24 In Process 80/16mg-Ml (Bactrim) 12:00 Ct Ab Pel Wo Con-No CT 07/13/24 Verified Oral Or Iv 09:36 Date of Service: Jul 13, 2024 Billing Provider: RACHEL CARLSON NP Common Visit Codes: [id number] CARE 30-74 MIN, [id number] CARE-EACH +30MIN RACHEL CARLSON NP Jul 13, 2024 09:41
--- NOTE | 2024-07-13 10:32 | ECG ---
[facility] Test Date: 2024-07-12 Test Time: 11:48:43 Pat Name: CAROLYN SIMMONS Department: Room: 0261 A Gender: F Air Traffic Controller: : 1995 Requested By: RACHEL CARLSON Order Number: [id number] Reading MD: Miguel Levy Measurements Intervals [place] Rate: 145 P: 58 CO: 124 QRS: -22 QRSD: 76 T: 139 QT: 270 QTc: 419 Interpretive Statements Sinus tachycardia Low voltage QRS Inferior infarct , age undetermined Cannot rule out Anterior infarct , age undetermined Electronically Signed On 07-13-2024 12:40:18 PDT by Miguel Levy Please click the below link to view image of tracing.
--- NOTE | 2024-07-13 11:51 | DVHPN2 ---
Progress Note - Dictate Date Seen: Jul 13, 2024 Medical Necessity Reason Pt with a Central, PICC or Fol: No Subjective Patient seen at bedside in [facility] 261 Patient is intubated sedated septic on multiple pressors Patient has not had any further bowel movement In fact the x-ray suggestive of ileus with dilated loops of bowel possibly related to narcotic use or cholestyramine Stool for C diff was negative Severe pancytopenia possibly medication effect on bone marrow Urine culture showed [id number] colony count of Enterococcus species Patient was hospitalized here in April for two weeks with similar symptoms Stool for ova and parasites was negative at that time She was treated conservatively with IV Flagyl cholestyramine Lomotil and nutritional supplements Patient's MRSA screen is negative, she is currently on IV Cipro and oral Bactrim vital signs Vital Sign Date Time Temp Pulse Resp B/P (MAP) Pulse Ox O2 Delivery O2 Flow Rate FiO2 07/13/24 11:30 107 26 113/55 (74) 100 40 07/13/24 10:00 Mechanical Ventilator+ 07/13/24 06:45 100.0 212.0 07/12/24 10:00 6 Total Intake and Output 07/12/24 07/12/24 07/13/24 15:00 23:00 07:00 Intake Total 475.00 ml 1861.50 ml 2250.50 ml Output Total 175 ml 375 ml Balance 475.00 ml 1686.50 ml 1875.50 ml medications Current Medications Medications Dose Ordered Sig/Era Route Start Time Stop Time Status Last Admin Dose Admin Pantoprazole Sodium 40 mg DAILY IV 07/07/24 10:00 07/13/24 10:56 40 MG Multivitamins 1 tab DAILY PO 07/07/24 10:00 07/12/24 10:03 1 TAB Acetaminophen 650 mg Q6HP PRN PO 07/06/24 20:15 07/12/24 22:29 650 MG Prochlorperazine Edisylate 5 mg Q4HPRN PRN IV 07/06/24 21:45 07/11/24 14:21 5 MG Nitroglycerin 0.4 mg Q5MINP PRN SL 07/06/24 21:45 Morphine Sulfate 2 mg Q30M PRN IV 07/06/24 21:45 Cancel Norepinephrine Bitartrate 250 ml @ 3.75 mls/hr Q24H IV 07/07/24 03:30 07/13/24 08:51 56.25 MLS/HR Morphine Sulfate 2 mg Q30MIN PRN IV 07/07/24 06:45 Cancel Loperamide HCl 2 mg PRN PRN PO 07/08/24 08:45 Hold 07/11/24 03:15 2 MG Morphine Sulfate 2 mg Q30M PRN IV 07/08/24 09:15 07/08/24 15:51 2 MG Al Hydrox/Mg Hydrox/Simethicone 5 ml QID MT 07/08/24 18:00 07/12/24 22:16 5 ML Nystatin 5 ml QID MT 07/08/24 18:00 07/13/24 06:03 5 ML Lorazepam 0.5 mg Q6HP PRN IV 07/09/24 02:30 07/12/24 05:44 0.5 MG Ciprofloxacin 200 ml @ 200 mls/hr Q12HR IV 07/09/24 22:00 07/13/24 10:56 200 MLS/HR Rifampin 300 mg BID PO 07/09/24 22:00 UNV Ethambutol HCl 800 mg DAILY PO 07/09/24 15:45 07/12/24 10:03 800 MG Patient Own Medication 1 DAILY PO 07/10/24 10:00 07/12/24 10:03 1 Hydrocortisone Sodium Succinate 100 mg Q12HR IV 07/10/24 10:00 07/12/24 22:30 100 MG Cholestyramine Resin 4 gm BID PO 07/10/24 22:00 07/12/24 22:29 4 GM Diphenoxylate HCl/ Atropine 2.5 mg Q12HP PRN PO 07/11/24 13:30 07/12/24 05:44 2.5 MG Midazolam HCl 50 ml @ 1 mls/hr Q24H IV 07/12/24 10:30 07/13/24 06:18 6 MLS/HR Fentanyl Citrate 250 ml @ 2.5 mls/hr Q24H IV 07/12/24 10:30 07/13/24 08:46 10 MLS/HR Phenylephrine HCl 250 ml @ 30 mls/hr Q8H20M IV 07/12/24 10:30 07/13/24 08:40 105 MLS/HR Vasopressin 20 units/Sodium Chloride 100 ml @ 9 mls/hr Q11H7M IV 07/12/24 17:30 07/13/24 01:00 9 MLS/HR Amino Acids 0 ml @ 0 mls/hr PER PHARMACY IV 07/12/24 17:30 Amino Acids/ Electrolytes/ Dextrose 1,000 ml @ 41 mls/hr DAILY@2200 IV 07/12/24 22:00 07/13/24 21:59 07/12/24 22:30 41 MLS/HR Diagnostic Test (Pha) 1 strip Q6HR 07/13/24 00:00 07/13/24 06:03 1 STRIP Insulin Human Regular FOLLOW SLIDING SCALE Q6HR SC 07/13/24 00:00 Dextrose 50 ml UD IV 07/12/24 17:45 07/12/24 23:52 50 ML Sodium Chloride 10 ml QSHIFT@10,22 IV 07/12/24 22:00 07/13/24 10:56 10 ML Sodium Bicarbonate 150 ml/Dextrose 1,150 ml @ 75 mls/hr [id number] IV 07/12/24 23:15 07/12/24 23:34 75 MLS/HR Acetaminophen 650 mg Q6HP PRN SC 07/13/24 08:30 Trimethoprim/ Sulfamethoxazole 0 ml @ 0 mls/hr PER PHARMACY IV 07/13/24 08:30 Trimethoprim/ Sulfamethoxazole 20 ml/Dextrose 520 ml @ 346.667 mls/hr Q8HR IV 07/13/24 12:00 objective General: NAD, AAOX3; intubated sedated, mild pallor Chest: lung lobo clear to auscultation Heart: RRR, no murmur Abdomen: non-distended, no tenderness to palpation, +BS laboratory and microbiology Laboratory Tests 07/13/24 04:35 Test 07/13/24 04:35 Range/Units Serum Glucose 127 H 74-106 mg/dL Problems(with codes): (1) Severe anemia (2) History of HIV or AIDS (3) Pneumocystis jiroveci pneumonia (4) HIV disease (5) Opportunistic infection (6) Diarrhea Prognosis Plan Patient is currently a full code overall her prognosis is poor and there should be a discussion regarding her code status versus comfort measures NG tube to low intermittent suction Patient is awaiting a CT of the abdomen without contrast If there is continued ileus we can also put a rectal tube for decompression Hold p.o. medications at the moment or if p.o. medications are required to be given we will clamp the NG tube for an hour after giving the medications Dietary Evaluation Review Recommendations by RD: Increase Calorie Intake, Protein Supplementation Comments: Pt meets criteria for Severe Protein-Calorie Malnutrition in the setting of chronic illness based on severe weight loss (26.2kg/34.6% in 3 months) and moderate muscle wasting(triceps & shoulder). Nutrition Recommendation: 1. Liberalize to regular diet to minimize food restriction 2. Appetite stimulant daily 3. Ensure Enlive 240 ml TID (ordered per ONS protocol) Expected Outcomes/Goals: To maintain/gain weight To meet at least 75% estimated needs Fu 3-5 days Interpretation of weight loss: >7.5% in 3 months Muscle Mass (Severe): Mod to Severe Depletion Protein Calorie Malnutrition: Severe Is there a minimum of two crit: Yes Plan discussed with: Other ([facility] Nurse and Jared Chaves) CC Plasma Assessment Blood Product Administration S: [id number] JAMESON KIM MD Jul 13, 2024 11:51
[2024-07-13 12:11] LABS: Base Excess -7.9 mmol/L (-2.0-3.0)
[2024-07-13] MEDS: SULFAMETH-TRIMETH 80/16MG-ML 20 ML in D5W 5% 500 ML IV SCH (13:25)
--- NOTE | 2024-07-13 15:40 | DVH ---
Date: 07/13/2024 03:06 PM Examination: XY KUB ABDOMEN SINGLE VIEW History: FOLLOW UP SMALL BOWEL OBSTRUCTION Comparison: XY KUB ABDOMEN SINGLE VIEW on DOS: 07/12/24 TECHNIQUE: Frontal views of the abdomen was obtained. FINDINGS: Diffusely dilated loops of small bowel measuring up to 5 cm. Nasogastric tube tip in the stomach. The lung bases are unremarkable. No acute osseous abnormality identified. IMPRESSION: Diffusely dilated loops of small bowel measuring up to 5 cm. Nasogastric tube tip in the stomach.
--- NOTE | 2024-07-13 15:43 | DVH ---
Exam: US US GUIDED VASCULAR ACCESS, US US Guided Vascular Access Date: 07/12/2024 05:45 PM Clinical History: picc line placement Comparison: US US GUIDED VASCULAR ACCESS on DOS: 05/01/24 Findings: Targeted sonographic evaluation of the basilic vein was obtained utilizing grayscale and color Dopple r imaging. IMPRESSION: Sonographic assistance for central line placement. Please refer to procedural report for detailed fin dings.
[2024-07-13 20:22] LABS: Red Cell Distribution Width 18.2 % (11.8-14.3)
[2024-07-13 20:24] LABS: Hematocrit 24.5 % (36.0-46.0); Mean Corpuscular Hemoglobin 28.4 pg (28.0-32.0); Mean Corpuscular Hgb Conc. 32.8 g/dL (32.0-36.0); Mean Corpuscular Volume 86.4 fL (80.0-100.0); Red Blood Cells 2.83 10^6/uL (4.0-5.20); White Blood Cell 2.1 10^3/uL (4.4-10.8)
[2024-07-13 20:38] LABS: Basophils % (manual) 0 (0.0-2.0); Blast Cells 0; Eosinophils % (manual) 0 (0-7); Metamyelocytes % 0; Myelocytes % 0; Promyelocytes % 0; Reactive Lymphocytes 0
[2024-07-13 20:46] LABS: Band Neutrophils % (manual) 12; Lymphocytes % (manual) 24 (10.0-50.0); Monocytes % (manual) 6 (0-12)
[2024-07-13 20:51] LABS: Platelet Estimate Markedly Decreased
[2024-07-13 20:57] LABS: Platelet Count (auto) 20 10^3/uL (140-450)
--- NOTE | 2024-07-13 21:59 | DVHPN2 ---
Progress Note - Dictate Date Seen: Jul 13, 2024 Medical Necessity Reason Pt with a Central, PICC or Fol: Yes The following are medically ne: Díaz Catheter Reason for díaz catheter: Strict I&O Subjective Patient seen and examined at bedside. Sedated, intubated on mechanical ventilator. Overnight events reviewed. vital signs Vital Sign Date Time Temp Pulse Resp B/P (MAP) Pulse Ox O2 Delivery O2 Flow Rate FiO2 07/13/24 20:32 117/68 07/13/24 20:10 107 26 97 40 07/13/24 20:00 Mechanical Ventilator+ 07/13/24 20:00 99.7 211.5 07/12/24 10:00 6 Total Intake and Output 07/12/24 07/12/24 07/13/24 15:00 23:00 07:00 Intake Total 475.00 ml 1861.50 ml 2552.75 ml Output Total 175 ml 375 ml Balance 475.00 ml 1686.50 ml 2177.75 ml medications Current Medications Medications Dose Ordered Sig/Era Route Start Time Stop Time Status Last Admin Dose Admin Pantoprazole Sodium 40 mg DAILY IV 07/07/24 10:00 07/13/24 10:56 40 MG Multivitamins 1 tab DAILY PO 07/07/24 10:00 07/12/24 10:03 1 TAB Acetaminophen 650 mg Q6HP PRN PO 07/06/24 20:15 07/12/24 22:29 650 MG Prochlorperazine Edisylate 5 mg Q4HPRN PRN IV 07/06/24 21:45 07/11/24 14:21 5 MG Nitroglycerin 0.4 mg Q5MINP PRN SL 07/06/24 21:45 Morphine Sulfate 2 mg Q30M PRN IV 07/06/24 21:45 Cancel Morphine Sulfate 2 mg Q30MIN PRN IV 07/07/24 06:45 Cancel Loperamide HCl 2 mg PRN PRN PO 07/08/24 08:45 Hold 07/11/24 03:15 2 MG Morphine Sulfate 2 mg Q30M PRN IV 07/08/24 09:15 07/08/24 15:51 2 MG Al Hydrox/Mg Hydrox/Simethicone 5 ml QID MT 07/08/24 18:00 07/13/24 18:08 5 ML Nystatin 5 ml QID MT 07/08/24 18:00 07/13/24 18:07 5 ML Lorazepam 0.5 mg Q6HP PRN IV 07/09/24 02:30 07/12/24 05:44 0.5 MG Ciprofloxacin 200 ml @ 200 mls/hr Q12HR IV 07/09/24 22:00 07/13/24 10:56 200 MLS/HR Rifampin 300 mg BID PO 07/09/24 22:00 UNV Ethambutol HCl 800 mg DAILY PO 07/09/24 15:45 07/12/24 10:03 800 MG Patient Own Medication 1 DAILY PO 07/10/24 10:00 07/12/24 10:03 1 Hydrocortisone Sodium Succinate 100 mg Q12HR IV 07/10/24 10:00 07/13/24 11:52 100 MG Cholestyramine Resin 4 gm BID PO 07/10/24 22:00 07/12/24 22:29 4 GM Diphenoxylate HCl/ Atropine 2.5 mg Q12HP PRN PO 07/11/24 13:30 07/12/24 05:44 2.5 MG Midazolam HCl 50 ml @ 1 mls/hr Q24H IV 07/12/24 10:30 07/13/24 18:09 5 MLS/HR Fentanyl Citrate 250 ml @ 2.5 mls/hr Q24H IV 07/12/24 10:30 07/13/24 08:46 10 MLS/HR Phenylephrine HCl 250 ml @ 30 mls/hr Q8H20M IV 07/12/24 10:30 07/13/24 14:47 48.75 MLS/HR Vasopressin 20 units/Sodium Chloride 100 ml @ 9 mls/hr Q11H7M IV 07/12/24 17:30 07/13/24 14:38 9 MLS/HR Amino Acids 0 ml @ 0 mls/hr PER PHARMACY IV 07/12/24 17:30 Amino Acids/ Electrolytes/ Dextrose 1,000 ml @ 41 mls/hr DAILY@2200 IV 07/12/24 22:00 07/13/24 21:59 07/12/24 22:30 41 MLS/HR Diagnostic Test (Pha) 1 strip Q6HR 07/13/24 00:00 07/13/24 18:07 1 STRIP Insulin Human Regular FOLLOW SLIDING SCALE Q6HR SC 07/13/24 00:00 Dextrose 50 ml UD IV 07/12/24 17:45 07/12/24 23:52 50 ML Sodium Chloride 10 ml QSHIFT@10,22 IV 07/12/24 22:00 07/13/24 10:56 10 ML Sodium Bicarbonate 150 ml/Dextrose 1,150 ml @ 75 mls/hr [id number] IV 07/12/24 23:15 07/13/24 13:26 75 MLS/HR Acetaminophen 650 mg Q6HP PRN MN 07/13/24 08:30 Trimethoprim/ Sulfamethoxazole 0 ml @ 0 mls/hr PER PHARMACY IV 07/13/24 08:30 Trimethoprim/ Sulfamethoxazole 20 ml/Dextrose 520 ml @ 346.667 mls/hr Q8HR IV 07/13/24 12:00 07/13/24 13:25 346.667 MLS/HR Fat Emulsion Intravenous 50 ml/ Sodium Acetate 40 meq/Calcium Gluconate 2.3 meq/ Magnesium Sulfate 4 meq/ Multivitamins 10 ml/Chromium/ Copper/Manganese/ Zinc 1 ml/Amino Acids/Dextrose/ Purified Water 1,036.9462 ml @ 43 mls/hr Q24H7M IV 07/13/24 22:00 07/14/24 21:59 Norepinephrine Bitartrate 32 mg/ Sodium Chloride 250 ml @ 0.938 mls/ hr Q24H IV 07/13/24 21:00 UNV objective Gen.: Patient lying in bed in medical ICU. Sedated, intubated on mechanical ventilator. Head: Normocephalic, atraumatic. Eyes: PERRLA. Ears: Normal external anatomy. Throat: Endotracheal tube and orogastric tube in place. Neck: Supple, trachea midline. Chest: Transmitted breath sounds bilaterally. Decreased air entry bilaterally. No wheezing. Bibasilar crackles. Cardiovascular: Positive S1, positive S2. Regular rate and rhythm. Abdomen: Positive bowel sounds in all 4 quadrants. Soft, nontender, nondistended. : Díaz in place. Normal external genitalia. Rectal: Deferred. Skin: Warm, dry. Intact. Extremities: 2+ radial pulses bilaterally. No lower extremity edema. Neuro: Sedated. laboratory and microbiology Laboratory Tests 07/13/24 20:07 07/13/24 04:35 Test 07/13/24 04:35 Range/Units Serum Glucose 127 H 74-106 mg/dL Assessment/Plan Impression: Acute hypoxic respiratory failure On mechanical ventilator Septic shock Pneumonia Anemia, rule out GI hemorrhage Human immunodeficiency virus disease Mycobacterium avium complex Events: Remains on vent support On AC mode; RR 26, VT 450, PEEP 5-->8, FiO2 50-->40% Improved FiO2 requirements Sedated on Versed, Fentanyl ABG reviewed, notable for acidemia d/t metabolic acidosis On IV bicarb drip CXR reviewed, demonstrates multifocal airspace disease. Low lung volumes On pressors for hemodynamic support Levophed 30 mcg/min, vasopressin Titrate to keep mean arterial pressure greater than 65 mmHg Off Tay-Synephrine Thrombocytopenia - platelets low at 17, 20 Monitor hemoglobin Continue IV steroids Continue antibiotics. Follow up sputum cultures Clinimix for nutritional support Labs and imaging reviewed. Rest of plan as noted below. Plan: s/p intubation on mechanical ventilator. On AC mode; RR 26, VT 450, PEEP 8, FiO2 40% Titrate FIO2 to keep O2 saturation above 90%. VAP bundle. Daily ABG and CXR while intubated Sedate for ventilator synchrony On bicarb drip. IV steroids Continue antibiotics. F/u cultures. Pressors as necessary for hemodynamic support Titrate to keep mean arterial pressure greater than 65 mmHg. Monitor hemoglobin Monitor renal function Monitor electrolytes. Supplement as necessary. Monitor ins and outs. Clinimix for nutritional support GI prophylaxis. DVT prophylaxis. Prognosis: Poor given patient's multiple co-morbidities. Condition: Critical Rest of plan per hospitalist and other consultants. A total of 35 minutes of critical care time was spent reviewing the patient record, examining the patient, making a diagnostic and therapeutic plan, discussing this plan with the medical personnel, following up on diagnostic studies and following the patient for clinical stability excluding any and all procedures. At least 50% of this time was spent in direct, [id number] contact. Thank you, BABAK Chaves, for allowing me to participate in this patient's care. Further recommendations will depend on the patient's clinical course. Please do not hesitate to contact me if you have any questions or concerns. This medical document was created using an electronic medical record system with [employer] dictation system. Although these documentations are being carefully reviewed, there may still be some phonetic and typographical changes. The errors are purely typographical, due to imperfection on the software program, and do not reflect any compromise in the patient's medical care. Dietary Evaluation Review Recommendations by RD: Increase Calorie Intake, Protein Supplementation Comments: Pt meets criteria for Severe Protein-Calorie Malnutrition in the setting of chronic illness based on severe weight loss (26.2kg/34.6% in 3 months) and moderate muscle wasting(triceps & shoulder). Nutrition Recommendation: 1. Liberalize to regular diet to minimize food restriction 2. Appetite stimulant daily 3. Ensure Enlive 240 ml TID (ordered per ONS protocol) Expected Outcomes/Goals: To maintain/gain weight To meet at least 75% estimated needs Fu 3-5 days Interpretation of weight loss: >7.5% in 3 months Muscle Mass (Severe): Mod to Severe Depletion Protein Calorie Malnutrition: Severe Is there a minimum of two crit: Yes Plan discussed with: Other ([facility] Naik) Critical Care Time(min): 35 CC Plasma Assessment Blood Product Administration S: [id number] MAGALY LOPEZ MD Jul 13, 2024 21:59
[2024-07-13] MEDS: NOREPINEPHRINE BITARTRATE 32 MG in SODIUM CHL 0.9% 218 ML IV SCH (22:04)
[2024-07-13] MEDS: TPN PER PHARMACY IV NR (22:07)
--- NOTE | 2024-07-13 22:44 | DVHINCON2 ---
Date of service: Jul 08, 2024 Family History: Patient reports no known family medical history. Allergies: Coded Allergies: NO KNOWN ALLERGIES (Unverified , 10/22/20) Home Meds Active Scripts Sulfamethoxazole W/Trimethopri (Bactrim Ds Tablet) 1 Tab Tb, 2 TAB PO Q8HR for 21 Days, #126 TAB Prov:MAXIM NIELSEN [facility] 07/08/23 Benzonatate (Benzonatate) 100 Mg Cap, 1-2 CAP PO Q4HR, #60 CAP Prov:MAXIM NIELSEN [facility] 07/08/23 Permethrin (Elimite) 5 % Cre, 1 APPLIC TOP ONCE, #60 GRAMS 1 Refill Prov:TONY NAVARRO 05/13/22 Cephalexin ( Keflex 500) 500 Mg Cap, 1 CAP PO QID, #40 CAP Prov:TONY NAVARRO 05/13/22 Sulfamethoxazole W/Trimethopri (Bactrim Ds Tablet) 1 Tab Tb, 1 TAB PO BID for 10 Days, #20 TAB Prov:TONY NAVARRO 05/13/22 Ibuprofen (Ibuprofen) 800 Mg Tab, 1 TAB PO TID, #30 TAB Prov:TONY NAVARRO 05/13/22 Clindamycin Hcl (Clindamycin Hcl) 300 Mg Cap, 1 CAP PO TID for 10 Days, #21 CAP 0 Refills Prov:AMAYA SÁNCHEZ 11/19/21 Reported Medications Emqsjlebwfi-Nuqqtesjmibry-Fuua (Biktarvy 50-200-25 mg) 1 Tab Tab, 1 TAB PO, TAB 07/11/24 Levothyroxine Sodium (SYNTHROID) 100 Mcg/5 Ml Ij, 100 MCG IV, INJ 07/11/24 Midodrine HCl (Midodrine HCl) 10 Mg Tab, 10 MG GT, TAB 07/11/24 Azithromycin (Azithromycin) 500 Mg Tab, 500 MG PO DAILY 07/11/24 Sulfamethoxazole-Trimethoprim (Bactrim) 1 Tab Tab, 1 TAB PO DAILY, MG 07/11/24 Ethambutol Hcl (Ethambutol Hcl) 400 Mg Tab, 1200 MG PO DAILY, MG 07/11/24 Vit W/ Ferrous Fumara ( One Daily) Daily Tab, 1 TAB PO DAILY, #90 TAB 3 Refills 10/22/20 Emtricitabine-Tenofovir Disopr (Truvada) Tab, 1 TAB PO DAILY, #30 TAB 2 Refills 10/22/20 Current Medications Current Medications Medications (Trade) Dose Ordered Sig/Era Route PRN Reason Start Time Stop Time Status Last Admin Diagnostic Test (Pha) (Accu-Chek Comfort Curve T) 1 strip Q6HR 07/13/24 00:00 07/13/24 18:07 Insulin Human Regular (InsuLIN R) FOLLOW SLIDING SCALE Q6HR SC 07/13/24 00:00 Sodium Bicarbonate 150 ml/Dextrose 1,150 ml @ 75 mls/hr [id number] IV 07/12/24 23:15 07/13/24 13:26 Acetaminophen (Tylenol Suppository) 650 mg Q6HP PRN NC PAIN SCALE 1-3 OR TEMP>100.4 07/13/24 08:30 Trimethoprim/ Sulfamethoxazole 0 ml @ 0 mls/hr PER PHARMACY IV 07/13/24 08:30 Trimethoprim/ Sulfamethoxazole 20 ml/Dextrose 520 ml @ 346.667 mls/hr Q8HR IV 07/13/24 12:00 07/13/24 22:16 Fat Emulsion Intravenous 50 ml/ Sodium Acetate 40 meq/Calcium Gluconate 2.3 meq/ Magnesium Sulfate 4 meq/ Multivitamins 10 ml/Chromium/ Copper/Manganese/ Zinc 1 ml/Amino Acids/Dextrose/ Purified Water 1,036.9462 ml @ 43 mls/hr Q24H7M IV 07/13/24 22:00 07/14/24 21:59 07/13/24 22:07 Norepinephrine Bitartrate 32 mg/ Sodium Chloride 250 ml @ 0.938 mls/ hr Q24H IV 07/13/24 21:00 07/13/24 22:04 Vital Signs Vital Signs Date Time Temp Pulse Resp B/P (MAP) Pulse Ox O2 Delivery O2 Flow Rate FiO2 07/13/24 22:05 106 26 120/71 (87) 99 40 07/13/24 20:00 Mechanical Ventilator+ 07/13/24 20:00 99.7 211.5 07/12/24 10:00 6 Labs/Diagnostic Data Labs Test 07/13/24 20:07 07/13/24 18:02 07/13/24 12:06 07/13/24 04:35 Range/Units White Blood Count 2.1 L 4.4-10.8 10^3/uL Red Blood Count 2.83 L 4.0-5.20 10^6/uL Hemoglobin 8.0 L 12.2-16.2 g/dL Hematocrit 24.5 #L 36.0-46.0 % Mean Corpuscular Volume 86.4 80.0-100.0 fL Mean Corpuscular Hemoglobin 28.4 28.0-32.0 pg Mean Corpuscular Hemoglobin Concent 32.8 32.0-36.0 g/dL Red Cell Distribution Width 18.2 H 11.8-14.3 % Platelet Count 20 *L 140-450 10^3/uL Mean Platelet Volume 9.6 6.9-10.8 fL Neutrophils (%) (Auto) 37.0-80.0 % Lymphocytes (%) (Auto) 10.0-50.0 % Monocytes (%) (Auto) 0.0-12.0 % Basophils (%) (Auto) 0.0-2.0 % Neutrophils # (Auto) 1.6-8.6 10 ^3/uL Lymphocytes # (Auto) 0.4-5.4 10 ^3/uL Monocytes # (Auto) 0-1.3 10 ^3/uL Differential Total Cells Counted 100.0 100 Neutrophils % (Manual) 58 37.0-80.0 Band Neutrophils % (Manual) 12 Lymphocytes % (Manual) 24 10.0-50.0 Monocytes % (Manual) 6 0-12 Eosinophils % (Manual) 0 0-7 Basophils % (Manual) 0 0.0-2.0 Metamyelocytes % (manual) 0 Myelocytes % (Manual) 0 Promyelocytes % (Manual) 0 Blast Cells % (Manual) 0 Nucleated Red Blood Cells 3.0 % Reactive Lymphocytes 0 Platelet Estimate Markedly decreased POC Glucose 137 H 70-106 mg/dl Blood Gas Specimen Type Arterial Blood Gas Sample Site Arterial line Blood Gas Patient Temperature 37.0 Arterial Blood Date Drawn [id number] Arterial Blood pH 7.323 L 7.350-7.450 Arterial Blood Partial Pressure CO2 34.1 32.0-45.0 mmHg Arterial Blood Partial Pressure O2 79.0 L 83.0-108.0 mmHg Arterial Blood HCO3 17.3 L 21.0-28.0 mmol/L Arterial Blood Oxygen Saturation 93.5 L 94.0-98.0 % Arterial Blood Base Excess -7.9 L -2.0-3.0 mmol/L Arterial Blood Oxyhemoglobin 92.7 L 94.0-98.0 % Arterial Blood Carboxyhemoglobin 0.5 0.5-1.5 % Arterial Blood Methemoglobin 0.4 0.0-1.5 % Jhonathan Test N/a Blood Gas Total Hemoglobin 8.90 L 12.0-16.0 g/dL Blood Gas Set Respiration Rate 26.0 Blood Gas Modality Vent - ac FiO2 % 40.0 Blood Gas Tidal Volume 450.0 Blood Gas PEEP or CPAP 8.0 Sodium Level 132 L 136-145 mmol/L Potassium Level 4.4 3.5-5.1 mmol/L Chloride Level 103 98-107 mmol/L Carbon Dioxide Level 15 L 20-31 mmol/L Anion Gap 14 5-15 Blood Urea Nitrogen 24 #H 9-23 mg/dL Creatinine 0.58 # 0.550-1.02 mg/dL Glomerular Filtration Rate Calc 126 >90 mL/min BUN/Creatinine Ratio 41.4 H 10.0-20.0 Serum Glucose 127 H 74-106 mg/dL Calcium Level 6.4 L 8.7-10.4 mg/dL Phosphorus Level 6.9 H 2.4-5.1 mg/dL Magnesium Level 1.8 1.6-2.6 mg/dL Total Bilirubin < 0.2 L 0.2-1.0 mg/dL Aspartate Amino Transferase (AST) 129 H 13-40 U/L Alanine Aminotransferase (ALT) 11 7-40 U/L Alkaline Phosphatase 91 46-116 U/L Total Protein 3.7 L 5.7-8.2 g/dL Albumin 1.4 L 3.2-4.8 g/dL Triglycerides Level 121 < 150 mg/dL Test 07/12/24 21:47 07/12/24 20:22 07/12/24 16:10 07/12/24 10:18 Range/Units Blood Gas Spontaneous Rate 26 Blood Gas Critical Value Read Back yes Blood Gas Notified Whom magali bill Blood Gas Notified Time [id number] Blood Gas Notified By mission support specialist yasmine anderson Prothrombin Time 13.7 H 9.3-11.8 sec Prothrombin Time INR 1.33 H 0.9-1.15 Activated Partial Thromboplast Time 47.8 H 24.5-34.5 SEC Blood Gas Liter Flow 5.00 Test 07/12/24 03:57 07/10/24 08:08 07/08/24 22:00 07/08/24 08:34 Range/Units Eosinophils (%) (Auto) 0.2 0.0-7.0 % Eosinophils # (Auto) 0 0-0.8 10 ^3/uL Basophils # (Auto) 0 0-0.2 10 ^3/uL Venous Blood pH 7.332 7.320-7.430 Venous Blood pCO2 at Patient Temp 25.6 L 38.0-54.0 mmHg Venous Blood pO2 at Patient Temp < 36.5 23.0-48.0 mmHg Venous Blood HCO3 13.3 L 22.0-29.0 mmol/L Venous Blood Base Excess -10.7 L -2.0-3.0 mmol/L Stool Occult Blood Positive Negative Stool Occult Blood Sample #3 Negative Erythrocyte Sedimentation Rate 9 0-20 mm/hr Test 07/08/24 04:20 07/07/24 09:40 07/06/24 21:10 07/06/24 20:11 Range/Units C-Reactive Protein High Sensitivity 8.58 H <1.0 mg/dL Urine Color Light-yellow Yellow Urine Clarity Hazy H Clear Urine pH 6.0 5.0-9.0 Urine Specific [place] 1.010 1.001-1.035 Urine Protein Trace H Negative Urine Ketones Negative Negative Urine Blood Negative Negative /uL Urine Nitrite Negative Negative Urine Bilirubin Negative Negative Urine Urobilinogen Normal Negative mg/dL Urine Leukocyte Esterase 2+ Negative /uL Urine RBC 2 0 - 4 /hpf Urine Microscopic WBC 6 H 0-5 /HPF Urine Squamous Epithelial Cells Few <5 /hpf Urine Bacteria Few H None Seen /hpf Urine Hyaline Casts Few 0 - 2 /lpf Urine Yeast with Hyphae Present /hpf Urine Yeast (Budding) Occasional None Seen /hpf Urine Glucose Normal Normal mg/dL Troponin I High Sensitivity < 3 L </=34 ng/L Lactic Acid Level 1.5 0.4-2.0 mmol/L Test 07/06/24 18:30 07/06/24 18:21 Range/Units Stool for White Cells Few B-Type Natriuretic Peptide 28.03 0-100 pg/mL Lipase 20 12-53 U/L Microbiology Date/Time Source Procedure Growth Status 07/12/24 06:15 Sputum Gram Stain Pending Resulted 07/12/24 06:15 Sputum Respiratory Culture - Preliminary Resulted 07/09/24 17:00 Urine - [place] Urine Culture - Final Complete 07/08/24 04:15 Nose MRSA Screen - Final Complete 07/06/24 18:30 Stool Clostridium difficile Toxin Assay - Final Complete 07/06/24 18:21 Blood Blood Culture - Final NO GROWTH AFTER 5 DAYS OF INCUBATION. Complete Plan/Recommendation (1) Opportunistic infection (2) HIV disease (3) Severe protein-calorie malnutrition (4) Elevated liver enzymes (5) Scabies exposure (6) Pneumocystis jiroveci pneumonia (7) Multifocal pneumonia (8) Diarrhea Plan/Recommendation ASSESSMENT AND PLAN: ID Problem List: HIV/AIDS - Non-compliance with antiretroviral therapy - 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 female with a past medical history of HIV/AIDS ( 2023: Absolute CD 4 [place] 22, % CD 4 Pos. Lymph. 3.1), untreated MAC, who presents with flu-like symptoms for the last 7 days, including green, watery diarrhea for the last 4 days. Her diarrhea is chronic and has acutely worsened to the point where she is requiring electrolyte repletion. She was diagnosed with MAC infection on July 31 and was started on ethambutol, Bactrim, and Biktarvy but has been non-compliant with her medications. Labs reveal severe anemia (Hgb 7.5), hyponatremia (Na 130), and urine drug scre en positive for cannabinoids and amphetamines(in the past). CT abdomen/pelvis shows hepatosplenomegaly and numerous clusters of enlarged lymph nodes around the mesenteric root measuring up to 1.7 cm, as well as prominent lymph nodes in the pelvis and groin. From her last hospitalization, the following were positive. She was transferred to [facility] where she was diagnosed with NTM pneumonia and discharged on a regimen she has been compliant with Now presents 2 weeks later with abdominal pain, diarhhea, SOB, and hypotension Plan: - Provide supportive care: - Transfuse PRBCs if hemoglobin <7 g/dL. - Pain management for abdominal pain. - Antipyretics for fevers. - Further diagnostics: - Obtain Quantiferon-TB Gold test.--> negative - Send stool cultures, ova and parasites, and C. difficile testing. - Screen for CMV antibodies due to diarrhea.--> positive for exposure, would check CMV DNA levels. - Check Cryptococcus antigen.--> negative - Obtain AFB cultures from blood, stool, and sputum. - Screen for toxoplasma antigen.--> negative - Screen for syphilis, gonorrhea, chlamydia.-->negative - Check hepatitis B core IgM antibody.-->negative - Monitor patient closely. - Consider starting prednisone after ruling out cryptococcal infection. Antibiotics: - continue Biktarvy - stop ceftriaxone and flagyl , start ciprofloxacin, ethambutol. will consider starting Amikacin for broader MAC therapy - continue Bactrim PJP prophylaxis so long as patient can tolerate - recommended expanded viral and parasitic enteric pcr panel send out. Isolation Precautions: Standard Authorized and Performed by: zoë garcia Total critical care time: Approximately 76 minutes Due to a high probability of clinically significant, life threatening deterioration, the patient required my highest level of preparedness to intervene emergently and I personally spent this critical care time directly and personally managing the patient. This critical care time included obtaining a history; examining the patient; pulse oximetry; ordering and review of studies; arranging urgent treatment with development of a management plan; evaluation of patient's response to treatment; frequent reassessment; and, discussions with other providers. This critical care time was performed to assess and manage the high probability of imminent, life-threatening deterioration that could result in multi-organ failure. It was exclusive of separately billable procedures and treating other patients and teaching time. Assessment and plan was discussed with the patient as written above Plan is subject to change pending incorporation of new incoming information/diagnostics. Updates may be added as addendum at the bottom (OR TOP) of this note Thank you for interesting consult. ID will continue to follow. Please contact Infectious Disease for any questions or concerns. Zoë Garcia M.D. [facility] Ph: ? History: The patient's chart and medications were reviewed in detail and the patient was seen and examined. History obtained from: patient Татьяна Michelle is a 28 y.o. female with a past medical history of HIV/AIDS and presumed MAC infection, who presents with flu-like symptoms for the last 7 days, including cough, runny nose, fevers, abdominal pain, headaches, fatigue, dizziness, and night sweats. She also reports green, watery diarrhea for the last 4 days. She was diagnosed with MAC infection on July 31 and was started on ethambutol, Bactrim, and Biktarvy but has been non-compliant with her medications. She does not know her CD4 count but acknowledges non-compliance with her regimen. She denies smoking and alcohol use. She uses marijuana and urine drug screen is positive for cannabinoids and amphetamines. No known drug allergies. Review of Systems: A complete 10 system review of systems was completed and negative except as noted in the HPI or here. ROS: - CONSTITUTIONAL: Reports fever, fatigue, night sweats, dizziness. - HEENT: Reports headaches. - RESPIRATORY: Reports cough, runny nose; denies shortness of breath. - CV: Denies chest pain and palpitations. - GI: Reports abdominal pain and green, watery diarrhea. - : Denies dysuria and urinary frequency. - MSK: Denies myalgia and joint pain. - SKIN: Reports pale skin; denies rash and pruritus. - NEUROLOGICAL: Reports headaches and dizziness. - PSYCHIATRIC: Reports agitation. Past Medical History: Diagnosis Date HIV/AIDS Presumed MAC infection diagnosed on 08/01/2023 Anemia Hyponatremia Hepatitis A Positive hepatitis B core antibody Past Surgical History: Cholecystectomy section Tonsillectomy Home Medications: Prior to Admission medications Medication Sig ethambutol Dose unknown, non-compliant. sulfamethoxazole-trimethoprim (BACTRIM) Dose unknown, non-compliant. Biktarvy (bictegravir/emtricitabine/tenofovir alafenamide) Dose unknown, non- compliant. Allergies: No Known Drug Allergies Family History: Family History No pertinent family history on file. Social History: Socioeconomic History Marital status: Not on file Number of children: Not on file Occupational History Not on file Tobacco Use Smoking status: Never Vaping Use Vaping status: Never Used Substance and Sexual Activity Alcohol use: Denies Drug use: Uses marijuana; positive urine drug screen for cannabinoids and amphetamines Sexual activity: Not on file Other Topics Concern Not on file Social History Narrative Not on file Social Determinants of Health Not on file. Objective: Admission Weight: Not provided. Physical Exam: General: Lethargic, agitated, pale appearance. Neck: Supple. No masses. HEENT: PERRL. Normal lids and conjunctiva. Moist mucous membranes. Reports headaches. Heart: Tachycardic at 125 bpm, regular rhythm. No murmur. No lower extremity edema. Lungs: Normal respiratory effort. Clear to auscultation bilaterally. No wheezes. No crackles. Abdomen: Mildly distended. Non-tender. Hepatomegaly and splenomegaly palpable up to 5 cm below costal margin. No masses or abdominal hernia. Msk: No digital cyanosis. Normal strength and tone in all 4 limbs. Skin: Pale. Warm and dry, no rashes. Neuro: Alert but lethargic. No facial droop or slurred speech. Extra-ocular movements intact. Sensation intact to soft touch in all 4 limbs. Psych: Agitated mood. Full affect. Oriented to person, place, time, and situation. Lines: Active Lines No active lines documented. Diagnostic Studies: Available diagnostic studies were reviewed personally. Significant relevant results and findings are outlined below or addressed in the Assessment and Plan above. Pertinent Imaging: Recent Results (from the past 360 hour(s)) CT Abdomen and Pelvis with Contrast - Impression IMPRESSION: 1. Hepatosplenomegaly. 2. Numerous clusters of enlarged lymph nodes around the mesenteric root measurin g up to 1.7 cm. 3. Prominent lymph nodes in the pelvis and groin. 4. Clinical correlation with lymphoproliferative process is recommended. Chest X-ray - Impression IMPRESSION: No acute cardiopulmonary disease. Laboratory Findings: - Hemoglobin: 7.5 g/dL (anemia) - Sodium: 130 mEq/L (hyponatremia) - WBC: 9 x10^3/?L - Urine drug screen: Positive for cannabinoids and amphetamines - Negative for COVID-19 and Influenza A Plan discussed with: Patient ZOË GARCIA MD Jul 13, 2024 22:44
--- NOTE | 2024-07-13 22:45 | DVHPN2 ---
Consult Progress Note Date Seen: Jul 11, 2024 Subjective Patient reports: Other (C diff testing is negative . has green loose stool . patient is drowsy . hospital is having diffucult times getting records from outside hospital ) Objective vital signs Vital Sign Date Time Temp Pulse Resp B/P (MAP) Pulse Ox O2 Delivery O2 Flow Rate FiO2 07/13/24 22:05 106 26 120/71 (87) 99 40 07/13/24 20:00 Mechanical Ventilator+ 07/13/24 20:00 99.7 211.5 07/12/24 10:00 6 Total Intake and Output 07/12/24 07/12/24 07/13/24 15:00 23:00 07:00 Intake Total 475.00 ml 1861.50 ml 2552.75 ml Output Total 175 ml 375 ml Balance 475.00 ml 1686.50 ml 2177.75 ml medications Current Medications Medications Dose Ordered Sig/Era Route Start Time Stop Time Status Last Admin Dose Admin Pantoprazole Sodium 40 mg DAILY IV 07/07/24 10:00 07/13/24 10:56 Multivitamins 1 tab DAILY PO 07/07/24 10:00 07/12/24 10:03 Acetaminophen 650 mg Q6HP PRN PO 07/06/24 20:15 07/12/24 22:29 Prochlorperazine Edisylate 5 mg Q4HPRN PRN IV 07/06/24 21:45 07/11/24 14:21 Nitroglycerin 0.4 mg Q5MINP PRN SL 07/06/24 21:45 Morphine Sulfate 2 mg Q30M PRN IV 07/06/24 21:45 Cancel Morphine Sulfate 2 mg Q30MIN PRN IV 07/07/24 06:45 Cancel Loperamide HCl 2 mg PRN PRN PO 07/08/24 08:45 Hold 07/11/24 03:15 Morphine Sulfate 2 mg Q30M PRN IV 07/08/24 09:15 07/08/24 15:51 Al Hydrox/Mg Hydrox/Simethicone 5 ml QID MT 07/08/24 18:00 07/13/24 22:04 Nystatin 5 ml QID MT 07/08/24 18:00 07/13/24 22:03 Lorazepam 0.5 mg Q6HP PRN IV 07/09/24 02:30 07/12/24 05:44 Ciprofloxacin 200 ml @ 200 mls/hr Q12HR IV 07/09/24 22:00 07/13/24 22:03 Rifampin 300 mg BID PO 07/09/24 22:00 UNV Ethambutol HCl 800 mg DAILY PO 07/09/24 15:45 07/12/24 10:03 Patient Own Medication 1 DAILY PO 07/10/24 10:00 07/12/24 10:03 Hydrocortisone Sodium Succinate 100 mg Q12HR IV 07/10/24 10:00 07/13/24 22:18 Cholestyramine Resin 4 gm BID PO 07/10/24 22:00 07/12/24 22:29 Diphenoxylate HCl/ Atropine 2.5 mg Q12HP PRN PO 07/11/24 13:30 07/12/24 05:44 Midazolam HCl 50 ml @ 1 mls/hr Q24H IV 07/12/24 10:30 07/13/24 18:09 Fentanyl Citrate 250 ml @ 2.5 mls/hr Q24H IV 07/12/24 10:30 07/13/24 08:46 Phenylephrine HCl 250 ml @ 30 mls/hr Q8H20M IV 07/12/24 10:30 07/13/24 14:47 Vasopressin 20 units/Sodium Chloride 100 ml @ 9 mls/hr Q11H7M IV 07/12/24 17:30 07/13/24 14:38 Amino Acids 0 ml @ 0 mls/hr PER PHARMACY IV 07/12/24 17:30 Diagnostic Test (Pha) 1 strip Q6HR 07/13/24 00:00 07/13/24 18:07 Insulin Human Regular FOLLOW SLIDING SCALE Q6HR SC 07/13/24 00:00 Dextrose 50 ml UD IV 07/12/24 17:45 07/12/24 23:52 Sodium Chloride 10 ml QSHIFT@10,22 IV 07/12/24 22:00 07/13/24 22:04 Sodium Bicarbonate 150 ml/Dextrose 1,150 ml @ 75 mls/hr [id number] IV 07/12/24 23:15 07/13/24 13:26 Acetaminophen 650 mg Q6HP PRN NC 07/13/24 08:30 Trimethoprim/ Sulfamethoxazole 0 ml @ 0 mls/hr PER PHARMACY IV 07/13/24 08:30 Trimethoprim/ Sulfamethoxazole 20 ml/Dextrose 520 ml @ 346.667 mls/hr Q8HR IV 07/13/24 12:00 07/13/24 22:16 Fat Emulsion Intravenous 50 ml/ Sodium Acetate 40 meq/Calcium Gluconate 2.3 meq/ Magnesium Sulfate 4 meq/ Multivitamins 10 ml/Chromium/ Copper/Manganese/ Zinc 1 ml/Amino Acids/Dextrose/ Purified Water 1,036.9462 ml @ 43 mls/hr Q24H7M IV 07/13/24 22:00 07/14/24 21:59 07/13/24 22:07 Norepinephrine Bitartrate 32 mg/ Sodium Chloride 250 ml @ 0.938 mls/ hr Q24H IV 07/13/24 21:00 07/13/24 22:04 Physical Exam: General: Lethargic, agitated, pale appearance. Neck: Supple. No masses. HEENT: PERRL. Normal lids and conjunctiva. Moist mucous membranes. Reports headaches. Heart: Tachycardic at 125 bpm, regular rhythm. No murmur. No lower extremity edema. Lungs: Normal respiratory effort. Clear to auscultation bilaterally. No wheezes. No crackles. Abdomen: Mildly distended. Non-tender. Hepatomegaly and splenomegaly palpable up to 5 cm below costal margin. No masses or abdominal hernia. Msk: No digital cyanosis. Normal strength and tone in all 4 limbs. Skin: Pale. Warm and dry, no rashes. Neuro: Alert but lethargic. No facial droop or slurred speech. Extra-ocular movements intact. Sensation intact to soft touch in all 4 limbs. Psych: Agitated mood. Full affect. Oriented to person, place, time, and situation. 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 female with a past medical history of HIV/AIDS ( 2023: Absolute CD 4 [place] 22, % CD 4 Pos. Lymph. 3.1), untreated MAC, who presents with flu-like symptoms for the last 7 days, including green, watery diarrhea for the last 4 days. Her diarrhea is chronic and has acutely worsened to the point where she is requiring electrolyte repletion. She was diagnosed with MAC infection on July 31 and was started on ethambutol, Bactrim, and Biktarvy but has been non-compliant with her medications. Labs reveal severe anemia (Hgb 7.5), hyponatremia (Na 130), and urine drug screen positive for cannabinoids and amphetamines(in the past). CT abdomen/pelvis shows hepatosplenomegaly and numerous clusters of enlarged lymph nodes around the mesenteric root measuring up to 1.7 cm, as well as prominent lymph nodes in the pelvis and groin. From her last hospitalization, the following were positive. She was transferred to [facility] where she was diagnosed with NTM pneumonia and discharged on a regimen she has been compliant with Now presents 2 weeks later with abdominal pain, diarrhea, SOB, and hypotension 6/2: remains clinically ill , having positive stool blood , ongoing systemic mac infection is likely etiology . tachycardic 6/3: continues to have worsening diarrhea , expect antibiotics to take several days to be in effect 64: patient was started on Lomatil by GI and would no recommend this as patients diarrhea is largely infectious in etiology and slowing down diarrhea would worsen infection Plan: - Hold Lomatil - continue to keep maps above 65 and fluid resuscitation - follow up on pending stool studies - continue close ICU support and fluid resuscitation and electrolyte replacement - Provide supportive care: - Transfuse PRBCs if hemoglobin <7 g/dL. - Pain management for abdominal pain. - Antipyretics for fevers. - Further diagnostics: - Obtain Quantiferon-TB Gold test.--> negative - Send stool cultures, ova and parasites, and C. difficile testing. - Screen for CMV antibodies due to diarrhea.--> positive for exposure, would check CMV DNA levels. - Check Cryptococcus antigen.--> negative - Obtain AFB cultures from blood, stool, and sputum. - Screen for toxoplasma antigen.--> negative - Screen for syphilis, gonorrhea, chlamydia.-->negative - Check hepatitis B core IgM antibody.-->negative - Monitor patient closely. - Consider starting prednisone after ruling out cryptococcal infection. Antibiotics: - continue Biktarvy, ciprofloxacin, ethambutol. will consider starting Amikacin for broader MAC therapy or prednizone - recommend EKG in next 24hrs to see if patients QTC remains prolonged - continue Bactrim PJP prophylaxis so long as patient can tolerate - recommended expanded viral and parasitic enteric pcr panel send out. Isolation Precautions: Standard Authorized and Performed by: beverly guzman Total critical care time: Approximately 76 minutes Due to a high probability of clinically significant, life threatening deterioration, the patient required my highest level of preparedness to intervene emergently and I personally spent this critical care time directly and personally managing the patient. This critical care time included obtaining a history; examining the patient; pulse oximetry; ordering and review of studies; arranging urgent treatment with development of a management plan; evaluation of patient's response to treatment; frequent reassessment; and, discussions with other providers. This critical care time was performed to assess and manage the high probability of imminent, life-threatening deterioration that could result in multi-organ failure. It was exclusive of separately billable procedures and treating other patients and teaching time. Plan discussed with: Other Dietary Evaluation Review Recommendations by RD: Increase Calorie Intake, Protein Supplementation Comments: Pt meets criteria for Severe Protein-Calorie Malnutrition in the setting of chronic illness based on severe weight loss (26.2kg/34.6% in 3 months) and moderate muscle wasting(triceps & shoulder). Nutrition Recommendation: 1. Liberalize to regular diet to minimize food restriction 2. Appetite stimulant daily 3. Ensure Enlive 240 ml TID (ordered per ONS protocol) Expected Outcomes/Goals: To maintain/gain weight To meet at least 75% estimated needs Fu 3-5 days Interpretation of weight loss: >7.5% in 3 months Muscle Mass (Severe): Mod to Severe Depletion Protein Calorie Malnutrition: Severe Is there a minimum of two crit: Yes CC Plasma Assessment Blood Product Administration S: [id number] BEVERLY GUZMAN MD Jul 13, 2024 22:45
--- NOTE | 2024-07-13 22:45 | DVHPN2 ---
Consult Progress Note Date Seen: Jul 09, 2024 Subjective Patient reports: Other (got 2 units of blood transfused 2 days ago and heoglobin is now at 10.0 . patient denies any blood in stool however stool blood test is positive . weak and SOB . still having multiple bowel moveemnts a day and is relatively hypotensive ) Objective vital signs Vital Sign Date Time Temp Pulse Resp B/P (MAP) Pulse Ox O2 Delivery O2 Flow Rate FiO2 07/13/24 22:05 106 26 120/71 (87) 99 40 07/13/24 20:00 Mechanical Ventilator+ 07/13/24 20:00 99.7 211.5 07/12/24 10:00 6 Total Intake and Output 07/12/24 07/12/24 07/13/24 15:00 23:00 07:00 Intake Total 475.00 ml 1861.50 ml 2552.75 ml Output Total 175 ml 375 ml Balance 475.00 ml 1686.50 ml 2177.75 ml medications Current Medications Medications Dose Ordered Sig/Era Route Start Time Stop Time Status Last Admin Dose Admin Pantoprazole Sodium 40 mg DAILY IV 07/07/24 10:00 07/13/24 10:56 Multivitamins 1 tab DAILY PO 07/07/24 10:00 07/12/24 10:03 Acetaminophen 650 mg Q6HP PRN PO 07/06/24 20:15 07/12/24 22:29 Prochlorperazine Edisylate 5 mg Q4HPRN PRN IV 07/06/24 21:45 07/11/24 14:21 Nitroglycerin 0.4 mg Q5MINP PRN SL 07/06/24 21:45 Morphine Sulfate 2 mg Q30M PRN IV 07/06/24 21:45 Cancel Morphine Sulfate 2 mg Q30MIN PRN IV 07/07/24 06:45 Cancel Loperamide HCl 2 mg PRN PRN PO 07/08/24 08:45 Hold 07/11/24 03:15 Morphine Sulfate 2 mg Q30M PRN IV 07/08/24 09:15 07/08/24 15:51 Al Hydrox/Mg Hydrox/Simethicone 5 ml QID MT 07/08/24 18:00 07/13/24 22:04 Nystatin 5 ml QID MT 07/08/24 18:00 07/13/24 22:03 Lorazepam 0.5 mg Q6HP PRN IV 07/09/24 02:30 07/12/24 05:44 Ciprofloxacin 200 ml @ 200 mls/hr Q12HR IV 07/09/24 22:00 07/13/24 22:03 Rifampin 300 mg BID PO 07/09/24 22:00 UNV Ethambutol HCl 800 mg DAILY PO 07/09/24 15:45 07/12/24 10:03 Patient Own Medication 1 DAILY PO 07/10/24 10:00 07/12/24 10:03 Hydrocortisone Sodium Succinate 100 mg Q12HR IV 07/10/24 10:00 07/13/24 22:18 Cholestyramine Resin 4 gm BID PO 07/10/24 22:00 07/12/24 22:29 Diphenoxylate HCl/ Atropine 2.5 mg Q12HP PRN PO 07/11/24 13:30 07/12/24 05:44 Midazolam HCl 50 ml @ 1 mls/hr Q24H IV 07/12/24 10:30 07/13/24 18:09 Fentanyl Citrate 250 ml @ 2.5 mls/hr Q24H IV 07/12/24 10:30 07/13/24 08:46 Phenylephrine HCl 250 ml @ 30 mls/hr Q8H20M IV 07/12/24 10:30 07/13/24 14:47 Vasopressin 20 units/Sodium Chloride 100 ml @ 9 mls/hr Q11H7M IV 07/12/24 17:30 07/13/24 14:38 Amino Acids 0 ml @ 0 mls/hr PER PHARMACY IV 07/12/24 17:30 Diagnostic Test (Pha) 1 strip Q6HR 07/13/24 00:00 07/13/24 18:07 Insulin Human Regular FOLLOW SLIDING SCALE Q6HR SC 07/13/24 00:00 Dextrose 50 ml UD IV 07/12/24 17:45 07/12/24 23:52 Sodium Chloride 10 ml QSHIFT@10,22 IV 07/12/24 22:00 07/13/24 22:04 Sodium Bicarbonate 150 ml/Dextrose 1,150 ml @ 75 mls/hr [id number] IV 07/12/24 23:15 07/13/24 13:26 Acetaminophen 650 mg Q6HP PRN MN 07/13/24 08:30 Trimethoprim/ Sulfamethoxazole 0 ml @ 0 mls/hr PER PHARMACY IV 07/13/24 08:30 Trimethoprim/ Sulfamethoxazole 20 ml/Dextrose 520 ml @ 346.667 mls/hr Q8HR IV 07/13/24 12:00 07/13/24 22:16 Fat Emulsion Intravenous 50 ml/ Sodium Acetate 40 meq/Calcium Gluconate 2.3 meq/ Magnesium Sulfate 4 meq/ Multivitamins 10 ml/Chromium/ Copper/Manganese/ Zinc 1 ml/Amino Acids/Dextrose/ Purified Water 1,036.9462 ml @ 43 mls/hr Q24H7M IV 07/13/24 22:00 07/14/24 21:59 07/13/24 22:07 Norepinephrine Bitartrate 32 mg/ Sodium Chloride 250 ml @ 0.938 mls/ hr Q24H IV 07/13/24 21:00 07/13/24 22:04 Physical Exam: General: Lethargic, agitated, pale appearance. Neck: Supple. No masses. HEENT: PERRL. Normal lids and conjunctiva. Moist mucous membranes. Reports headaches. Heart: Tachycardic at 125 bpm, regular rhythm. No murmur. No lower extremity edema. Lungs: Normal respiratory effort. Clear to auscultation bilaterally. No wheezes. No crackles. Abdomen: Mildly distended. Non-tender. Hepatomegaly and splenomegaly palpable up to 5 cm below costal margin. No masses or abdominal hernia. Msk: No digital cyanosis. Normal strength and tone in all 4 limbs. Skin: Pale. Warm and dry, no rashes. Neuro: Alert but lethargic. No facial droop or slurred speech. Extra-ocular movements intact. Sensation intact to soft touch in all 4 limbs. Psych: Agitated mood. Full affect. Oriented to person, place, time, and situation. 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 female with a past medical history of HIV/AIDS ( 2023: Absolute CD 4 [place] 22, % CD 4 Pos. Lymph. 3.1), untreated MAC, who presents with flu-like symptoms for the last 7 days, including green, watery diarrhea for the last 4 days. Her diarrhea is chronic and has acutely worsened to the point where she is requiring electrolyte repletion. She was diagnosed with MAC infection on July 31 and was started on ethambutol, Bactrim, and Biktarvy but has been non-compliant with her medications. Labs reveal severe anemia (Hgb 7.5), hyponatremia (Na 130), and urine drug screen positive for cannabinoids and amphetamines(in the past). CT abdomen/pelvis shows hepatosplenomegaly and numerous clusters of enlarged lymph nodes around the mesenteric root measuring up to 1.7 cm, as well as prominent lymph nodes in the pelvis and groin. From her last hospitalization, the following were positive. She was transferred to [facility] where she was diagnosed with NTM pneumonia and discharged on a regimen she has been compliant with Now presents 2 weeks later with abdominal pain, diarrhea, SOB, and hypotension 6/2: remains clinically ill , having positive stool blood , ongoing systemic mac infection is likely etiology . tachycardic Plan: - continue close ICU support and fluid resuscitation and electrolyte replacement - Provide supportive care: - Transfuse PRBCs if hemoglobin <7 g/dL. - Pain management for abdominal pain. - Antipyretics for fevers. - Further diagnostics: - Obtain Quantiferon-TB Gold test.--> negative - Send stool cultures, ova and parasites, and C. difficile testing. - Screen for CMV antibodies due to diarrhea.--> positive for exposure, would check CMV DNA levels. - Check Cryptococcus antigen.--> negative - Obtain AFB cultures from blood, stool, and sputum. - Screen for toxoplasma antigen.--> negative - Screen for syphilis, gonorrhea, chlamydia.-->negative - Check hepatitis B core IgM antibody.-->negative - Monitor patient closely. - Consider starting prednisone after ruling out cryptococcal infection. Antibiotics: - continue Biktarvy - stop ceftriaxone and flagyl , start ciprofloxacin, ethambutol. will consider starting Amikacin for broader MAC therapy - continue Bactrim PJP prophylaxis so long as patient can tolerate - recommended expanded viral and parasitic enteric pcr panel send out. Isolation Precautions: Standard Authorized and Performed by: beverly guzman Total critical care time: Approximately 76 minutes Due to a high probability of clinically significant, life threatening deterioration, the patient required my highest level of preparedness to intervene emergently and I personally spent this critical care time directly and personally managing the patient. This critical care time included obtaining a history; examining the patient; pulse oximetry; ordering and review of studies; arranging urgent treatment with development of a management plan; evaluation of patient's response to treatment; frequent reassessment; and, discussions with other providers. This critical care time was performed to assess and manage the high probability of imminent, life-threatening deterioration that could result in multi-organ failure. It was exclusive of separately billable procedures and treating other patients and teaching time. Plan discussed with: Other Dietary Evaluation Review Recommendations by RD: Increase Calorie Intake, Protein Supplementation Comments: Pt meets criteria for Severe Protein-Calorie Malnutrition in the setting of chronic illness based on severe weight loss (26.2kg/34.6% in 3 months) and moderate muscle wasting(triceps & shoulder). Nutrition Recommendation: 1. Liberalize to regular diet to minimize food restriction 2. Appetite stimulant daily 3. Ensure Enlive 240 ml TID (ordered per ONS protocol) Expected Outcomes/Goals: To maintain/gain weight To meet at least 75% estimated needs Fu 3-5 days Interpretation of weight loss: >7.5% in 3 months Muscle Mass (Severe): Mod to Severe Depletion Protein Calorie Malnutrition: Severe Is there a minimum of two crit: Yes CC Plasma Assessment Blood Product Administration S: [id number] BEVERLY GUZMAN MD Jul 13, 2024 22:45
--- NOTE | 2024-07-13 22:45 | DVHPN2 ---
Consult Progress Note Date Seen: Jul 10, 2024 Subjective Patient reports: Other (2 liters nasal canula , having about 7 bowel movements overnight and swithced to ciprofloxacin and started on bictarvy and levofed dripp . worsening diarrhea ) Objective vital signs Vital Sign Date Time Temp Pulse Resp B/P (MAP) Pulse Ox O2 Delivery O2 Flow Rate FiO2 07/13/24 22:05 106 26 120/71 (87) 99 40 07/13/24 20:00 Mechanical Ventilator+ 07/13/24 20:00 99.7 211.5 07/12/24 10:00 6 Total Intake and Output 07/12/24 07/12/24 07/13/24 15:00 23:00 07:00 Intake Total 475.00 ml 1861.50 ml 2552.75 ml Output Total 175 ml 375 ml Balance 475.00 ml 1686.50 ml 2177.75 ml medications Current Medications Medications Dose Ordered Sig/Era Route Start Time Stop Time Status Last Admin Dose Admin Pantoprazole Sodium 40 mg DAILY IV 07/07/24 10:00 07/13/24 10:56 Multivitamins 1 tab DAILY PO 07/07/24 10:00 07/12/24 10:03 Acetaminophen 650 mg Q6HP PRN PO 07/06/24 20:15 07/12/24 22:29 Prochlorperazine Edisylate 5 mg Q4HPRN PRN IV 07/06/24 21:45 07/11/24 14:21 Nitroglycerin 0.4 mg Q5MINP PRN SL 07/06/24 21:45 Morphine Sulfate 2 mg Q30M PRN IV 07/06/24 21:45 Cancel Morphine Sulfate 2 mg Q30MIN PRN IV 07/07/24 06:45 Cancel Loperamide HCl 2 mg PRN PRN PO 07/08/24 08:45 Hold 07/11/24 03:15 Morphine Sulfate 2 mg Q30M PRN IV 07/08/24 09:15 07/08/24 15:51 Al Hydrox/Mg Hydrox/Simethicone 5 ml QID MT 07/08/24 18:00 07/13/24 22:04 Nystatin 5 ml QID MT 07/08/24 18:00 07/13/24 22:03 Lorazepam 0.5 mg Q6HP PRN IV 07/09/24 02:30 07/12/24 05:44 Ciprofloxacin 200 ml @ 200 mls/hr Q12HR IV 07/09/24 22:00 07/13/24 22:03 Rifampin 300 mg BID PO 07/09/24 22:00 UNV Ethambutol HCl 800 mg DAILY PO 07/09/24 15:45 07/12/24 10:03 Patient Own Medication 1 DAILY PO 07/10/24 10:00 07/12/24 10:03 Hydrocortisone Sodium Succinate 100 mg Q12HR IV 07/10/24 10:00 07/13/24 22:18 Cholestyramine Resin 4 gm BID PO 07/10/24 22:00 07/12/24 22:29 Diphenoxylate HCl/ Atropine 2.5 mg Q12HP PRN PO 07/11/24 13:30 07/12/24 05:44 Midazolam HCl 50 ml @ 1 mls/hr Q24H IV 07/12/24 10:30 07/13/24 18:09 Fentanyl Citrate 250 ml @ 2.5 mls/hr Q24H IV 07/12/24 10:30 07/13/24 08:46 Phenylephrine HCl 250 ml @ 30 mls/hr Q8H20M IV 07/12/24 10:30 07/13/24 14:47 Vasopressin 20 units/Sodium Chloride 100 ml @ 9 mls/hr Q11H7M IV 07/12/24 17:30 07/13/24 14:38 Amino Acids 0 ml @ 0 mls/hr PER PHARMACY IV 07/12/24 17:30 Diagnostic Test (Pha) 1 strip Q6HR 07/13/24 00:00 07/13/24 18:07 Insulin Human Regular FOLLOW SLIDING SCALE Q6HR SC 07/13/24 00:00 Dextrose 50 ml UD IV 07/12/24 17:45 07/12/24 23:52 Sodium Chloride 10 ml QSHIFT@10,22 IV 07/12/24 22:00 07/13/24 22:04 Sodium Bicarbonate 150 ml/Dextrose 1,150 ml @ 75 mls/hr [id number] IV 07/12/24 23:15 07/13/24 13:26 Acetaminophen 650 mg Q6HP PRN AR 07/13/24 08:30 Trimethoprim/ Sulfamethoxazole 0 ml @ 0 mls/hr PER PHARMACY IV 07/13/24 08:30 Trimethoprim/ Sulfamethoxazole 20 ml/Dextrose 520 ml @ 346.667 mls/hr Q8HR IV 07/13/24 12:00 07/13/24 22:16 Fat Emulsion Intravenous 50 ml/ Sodium Acetate 40 meq/Calcium Gluconate 2.3 meq/ Magnesium Sulfate 4 meq/ Multivitamins 10 ml/Chromium/ Copper/Manganese/ Zinc 1 ml/Amino Acids/Dextrose/ Purified Water 1,036.9462 ml @ 43 mls/hr Q24H7M IV 07/13/24 22:00 07/14/24 21:59 07/13/24 22:07 Norepinephrine Bitartrate 32 mg/ Sodium Chloride 250 ml @ 0.938 mls/ hr Q24H IV 07/13/24 21:00 07/13/24 22:04 Physical Exam: General: Lethargic, agitated, pale appearance. Neck: Supple. No masses. HEENT: PERRL. Normal lids and conjunctiva. Moist mucous membranes. Reports headaches. Heart: Tachycardic at 125 bpm, regular rhythm. No murmur. No lower extremity edema. Lungs: Normal respiratory effort. Clear to auscultation bilaterally. No wheezes. No crackles. Abdomen: Mildly distended. Non-tender. Hepatomegaly and splenomegaly palpable up to 5 cm below costal margin. No masses or abdominal hernia. Msk: No digital cyanosis. Normal strength and tone in all 4 limbs. Skin: Pale. Warm and dry, no rashes. Neuro: Alert but lethargic. No facial droop or slurred speech. Extra-ocular movements intact. Sensation intact to soft touch in all 4 limbs. Psych: Agitated mood. Full affect. Oriented to person, place, time, and situation. laboratory and microbiology Laboratory Tests 07/13/24 20:07 07/13/24 04:35 Test 07/13/24 04:35 Range/Units Serum Glucose 127 H 74-106 mg/dL Problem List/Assessment/Plan Problems(with codes): (1) Hypoalbuminemia (2) Chest pain (3) HIV (human immunodeficiency virus infection) (4) Diarrhea (5) Opportunistic infection (6) HIV disease (7) Pneumocystis jiroveci pneumonia (8) History of HIV or AIDS Problem List/Assessment/Plan ASSESSMENT AND PLAN: ID Problem List: HIV/AIDS - Non-compliance with antiretroviral therapy - 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 female with a past medical history of HIV/AIDS ( 2023: Absolute CD 4 [place] 22, % CD 4 Pos. Lymph. 3.1), untreated MAC, who presents with flu-like symptoms for the last 7 days, including green, watery diarrhea for the last 4 days. Her diarrhea is chronic and has acutely worsened to the point where she is requiring electrolyte repletion. She was diagnosed with MAC infection on July 31 and was started on ethambutol, Bactrim, and Biktarvy but has been non-compliant with her medications. Labs reveal severe anemia (Hgb 7.5), hyponatremia (Na 130), and urine drug screen positive for cannabinoids and amphetamines(in the past). CT abdomen/pelvis shows hepatosplenomegaly and numerous clusters of enlarged lymph nodes around the mesenteric root measuring up to 1.7 cm, as well as prominent lymph nodes in the pelvis and groin. From her last hospitalization, the following were positive. She was transferred to [facility] where she was diagnosed with NTM pneumonia and discharged on a regimen she has been compliant with Now presents 2 weeks later with abdominal pain, diarrhea, SOB, and hypotension 6/2: remains clinically ill , having positive stool blood , ongoing systemic mac infection is likely etiology . tachycardic 6/3: continues to have worsening diarrhea , expect antibiotics to take several days to be in effect Plan: - continue close ICU support and fluid resuscitation and electrolyte replacement - Provide supportive care: - Transfuse PRBCs if hemoglobin <7 g/dL. - Pain management for abdominal pain. - Antipyretics for fevers. - Further diagnostics: - Obtain Quantiferon-TB Gold test.--> negative - Send stool cultures, ova and parasites, and C. difficile testing. - Screen for CMV antibodies due to diarrhea.--> positive for exposure, would check CMV DNA levels. - Check Cryptococcus antigen.--> negative - Obtain AFB cultures from blood, stool, and sputum. - Screen for toxoplasma antigen.--> negative - Screen for syphilis, gonorrhea, chlamydia.-->negative - Check hepatitis B core IgM antibody.-->negative - Monitor patient closely. - Consider starting prednisone after ruling out cryptococcal infection. Antibiotics: - continue Biktarvy, ciprofloxacin, ethambutol. will consider starting Amikacin for broader MAC therapy or prednizone - recommend EKG in next 24hrs to see if patients QTC remains prolonged - continue Bactrim PJP prophylaxis so long as patient can tolerate - recommended expanded viral and parasitic enteric pcr panel send out. Isolation Precautions: Standard Authorized and Performed by: beverly guzman Total critical care time: Approximately 76 minutes Due to a high probability of clinically significant, life threatening deterioration, the patient required my highest level of preparedness to intervene emergently and I personally spent this critical care time directly and personally managing the patient. This critical care time included obtaining a history; examining the patient; pulse oximetry; ordering and review of studies; arranging urgent treatment with development of a management plan; evaluation of patient's response to treatment; frequent reassessment; and, discussions with other providers. This critical care time was performed to assess and manage the high probability of imminent, life-threatening deterioration that could result in multi-organ failure. It was exclusive of separately billable procedures and treating other patients and teaching time. Plan discussed with: Other Dietary Evaluation Review Recommendations by RD: Increase Calorie Intake, Protein Supplementation Comments: Pt meets criteria for Severe Protein-Calorie Malnutrition in the setting of chronic illness based on severe weight loss (26.2kg/34.6% in 3 months) and moderate muscle wasting(triceps & shoulder). Nutrition Recommendation: 1. Liberalize to regular diet to minimize food restriction 2. Appetite stimulant daily 3. Ensure Enlive 240 ml TID (ordered per ONS protocol) Expected Outcomes/Goals: To maintain/gain weight To meet at least 75% estimated needs Fu 3-5 days Interpretation of weight loss: >7.5% in 3 months Muscle Mass (Severe): Mod to Severe Depletion Protein Calorie Malnutrition: Severe Is there a minimum of two crit: Yes CC Plasma Assessment Blood Product Administration S: [id number] BEVERLY GUZMAN MD Jul 13, 2024 22:45
--- NOTE | 2024-07-13 22:45 | DVHPN2 ---
Consult Progress Note Date Seen: Jul 12, 2024 Subjective Patient reports: Other (intubated on minijmal vent , stable amount of levofed , continues to have daily multiple bowel movements . intubated for airway protection . drowsy ) Objective vital signs Vital Sign Date Time Temp Pulse Resp B/P (MAP) Pulse Ox O2 Delivery O2 Flow Rate FiO2 07/13/24 22:05 106 26 120/71 (87) 99 40 07/13/24 20:00 Mechanical Ventilator+ 07/13/24 20:00 99.7 211.5 07/12/24 10:00 6 Total Intake and Output 07/12/24 07/12/24 07/13/24 15:00 23:00 07:00 Intake Total 475.00 ml 1861.50 ml 2552.75 ml Output Total 175 ml 375 ml Balance 475.00 ml 1686.50 ml 2177.75 ml medications Current Medications Medications Dose Ordered Sig/Era Route Start Time Stop Time Status Last Admin Dose Admin Pantoprazole Sodium 40 mg DAILY IV 07/07/24 10:00 07/13/24 10:56 Multivitamins 1 tab DAILY PO 07/07/24 10:00 07/12/24 10:03 Acetaminophen 650 mg Q6HP PRN PO 07/06/24 20:15 07/12/24 22:29 Prochlorperazine Edisylate 5 mg Q4HPRN PRN IV 07/06/24 21:45 07/11/24 14:21 Nitroglycerin 0.4 mg Q5MINP PRN SL 07/06/24 21:45 Morphine Sulfate 2 mg Q30M PRN IV 07/06/24 21:45 Cancel Morphine Sulfate 2 mg Q30MIN PRN IV 07/07/24 06:45 Cancel Loperamide HCl 2 mg PRN PRN PO 07/08/24 08:45 Hold 07/11/24 03:15 Morphine Sulfate 2 mg Q30M PRN IV 07/08/24 09:15 07/08/24 15:51 Al Hydrox/Mg Hydrox/Simethicone 5 ml QID MT 07/08/24 18:00 07/13/24 22:04 Nystatin 5 ml QID MT 07/08/24 18:00 07/13/24 22:03 Lorazepam 0.5 mg Q6HP PRN IV 07/09/24 02:30 07/12/24 05:44 Ciprofloxacin 200 ml @ 200 mls/hr Q12HR IV 07/09/24 22:00 07/13/24 22:03 Rifampin 300 mg BID PO 07/09/24 22:00 UNV Ethambutol HCl 800 mg DAILY PO 07/09/24 15:45 07/12/24 10:03 Patient Own Medication 1 DAILY PO 07/10/24 10:00 07/12/24 10:03 Hydrocortisone Sodium Succinate 100 mg Q12HR IV 07/10/24 10:00 07/13/24 22:18 Cholestyramine Resin 4 gm BID PO 07/10/24 22:00 07/12/24 22:29 Diphenoxylate HCl/ Atropine 2.5 mg Q12HP PRN PO 07/11/24 13:30 07/12/24 05:44 Midazolam HCl 50 ml @ 1 mls/hr Q24H IV 07/12/24 10:30 07/13/24 18:09 Fentanyl Citrate 250 ml @ 2.5 mls/hr Q24H IV 07/12/24 10:30 07/13/24 08:46 Phenylephrine HCl 250 ml @ 30 mls/hr Q8H20M IV 07/12/24 10:30 07/13/24 14:47 Vasopressin 20 units/Sodium Chloride 100 ml @ 9 mls/hr Q11H7M IV 07/12/24 17:30 07/13/24 14:38 Amino Acids 0 ml @ 0 mls/hr PER PHARMACY IV 07/12/24 17:30 Diagnostic Test (Pha) 1 strip Q6HR 07/13/24 00:00 07/13/24 18:07 Insulin Human Regular FOLLOW SLIDING SCALE Q6HR SC 07/13/24 00:00 Dextrose 50 ml UD IV 07/12/24 17:45 07/12/24 23:52 Sodium Chloride 10 ml QSHIFT@10,22 IV 07/12/24 22:00 07/13/24 22:04 Sodium Bicarbonate 150 ml/Dextrose 1,150 ml @ 75 mls/hr [id number] IV 07/12/24 23:15 07/13/24 13:26 Acetaminophen 650 mg Q6HP PRN MS 07/13/24 08:30 Trimethoprim/ Sulfamethoxazole 0 ml @ 0 mls/hr PER PHARMACY IV 07/13/24 08:30 Trimethoprim/ Sulfamethoxazole 20 ml/Dextrose 520 ml @ 346.667 mls/hr Q8HR IV 07/13/24 12:00 07/13/24 22:16 Fat Emulsion Intravenous 50 ml/ Sodium Acetate 40 meq/Calcium Gluconate 2.3 meq/ Magnesium Sulfate 4 meq/ Multivitamins 10 ml/Chromium/ Copper/Manganese/ Zinc 1 ml/Amino Acids/Dextrose/ Purified Water 1,036.9462 ml @ 43 mls/hr Q24H7M IV 07/13/24 22:00 07/14/24 21:59 07/13/24 22:07 Norepinephrine Bitartrate 32 mg/ Sodium Chloride 250 ml @ 0.938 mls/ hr Q24H IV 07/13/24 21:00 07/13/24 22:04 Physical Exam: General: Lethargic, agitated, pale appearance. Neck: Supple. No masses. HEENT: PERRL. Normal lids and conjunctiva. Moist mucous membranes. Reports headaches. Heart: Tachycardic at 125 bpm, regular rhythm. No murmur. No lower extremity edema. Lungs: Normal respiratory effort. Clear to auscultation bilaterally. No wheezes. No crackles. Abdomen: Mildly distended. Non-tender. Hepatomegaly and splenomegaly palpable up to 5 cm below costal margin. No masses or abdominal hernia. Msk: No digital cyanosis. Normal strength and tone in all 4 limbs. Skin: Pale. Warm and dry, no rashes. Neuro: Alert but lethargic. No facial droop or slurred speech. Extra-ocular movements intact. Sensation intact to soft touch in all 4 limbs. Psych: Agitated mood. Full affect. Oriented to person, place, time, and situation. laboratory and microbiology Laboratory Tests 07/13/24 20:07 07/13/24 04:35 Test 07/13/24 04:35 Range/Units Serum Glucose 127 H 74-106 mg/dL Problem List/Assessment/Plan Problems(with codes): (1) HIV disease (2) Pneumocystis jiroveci pneumonia (3) History of HIV or AIDS (4) Severe anemia (5) Cellulitis of abdominal wall Problem List/Assessment/Plan ASSESSMENT AND PLAN: ID Problem List: HIV/AIDS - Non-compliance with antiretroviral therapy - 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 female with a past medical history of HIV/AIDS ( 2023: Absolute CD 4 [place] 22, % CD 4 Pos. Lymph. 3.1), untreated MAC, who presents with flu-like symptoms for the last 7 days, including green, watery diarrhea for the last 4 days. Her diarrhea is chronic and has acutely worsened to the point where she is requiring electrolyte repletion. She was diagnosed with MAC infection on July 31 and was started on ethambutol, Bactrim, and Biktarvy but has been non-compliant with her medications. Labs reveal severe anemia (Hgb 7.5), hyponatremia (Na 130), and urine drug screen positive for cannabinoids and amphetamines(in the past). CT abdomen/pelvis shows hepatosplenomegaly and numerous clusters of enlarged lymph nodes around the mesenteric root measuring up to 1.7 cm, as well as prominent lymph nodes in the pelvis and groin. From her last hospitalization, the following were positive. She was transferred to [facility] where she was diagnosed with NTM pneumonia and discharged on a regimen she has been compliant with Now presents 2 weeks later with abdominal pain, diarrhea, SOB, and hypotension 6/2: remains clinically ill , having positive stool blood , ongoing systemic mac infection is likely etiology . tachycardic 6/3: continues to have worsening diarrhea , expect antibiotics to take several days to be in effect 6/4: patient was started on Lomatil by GI and would no recommend this as patients diarrhea is largely infectious in etiology and slowing down diarrhea would worsen infection 6/5: patient was intubated due to airway protection. chest xray shows multifocal airspace disease , altered mental status is likely related to GI loses and sepsis Plan: - empirically start meropenem to cover organisms for patients infectious diarrhea - monitor renal function - if patient continues to decline would stop ciprofloxacin and switch to amicasin - Hold Lomatil - continue to keep maps above 65 and fluid resuscitation - follow up on pending stool studies - continue close ICU support and fluid resuscitation and electrolyte replacement - Provide supportive care: - Transfuse PRBCs if hemoglobin <7 g/dL. - Pain management for abdominal pain. - Antipyretics for fevers. - Further diagnostics: - Obtain Quantiferon-TB Gold test.--> negative - Send stool cultures, ova and parasites, and C. difficile testing. - Screen for CMV antibodies due to diarrhea.--> positive for exposure, would check CMV DNA levels. - Check Cryptococcus antigen.--> negative - Obtain AFB cultures from blood, stool, and sputum. - Screen for toxoplasma antigen.--> negative - Screen for syphilis, gonorrhea, chlamydia.-->negative - Check hepatitis B core IgM antibody.-->negative - Monitor patient closely. - Consider starting prednisone after ruling out cryptococcal infection. Antibiotics: - continue Biktarvy, ciprofloxacin, ethambutol. will consider starting Amikacin for broader MAC therapy or prednizone - recommend EKG in next 24hrs to see if patients QTC remains prolonged - continue Bactrim PJP prophylaxis so long as patient can tolerate - recommended expanded viral and parasitic enteric pcr panel send out. Isolation Precautions: Standard Authorized and Performed by: beverly guzman Total critical care time: Approximately 76 minutes Due to a high probability of clinically significant, life threatening deterioration, the patient required my highest level of preparedness to intervene emergently and I personally spent this critical care time directly and personally managing the patient. This critical care time included obtaining a history; examining the patient; pulse oximetry; ordering and review of studies; arranging urgent treatment with development of a management plan; evaluation of patient's response to treatment; frequent reassessment; and, discussions with other providers. This critical care time was performed to assess and manage the high probability of imminent, life-threatening deterioration that could result in multi-organ failure. It was exclusive of separately billable procedures and treating other patients and teaching time. Plan discussed with: Other Dietary Evaluation Review Recommendations by RD: Increase Calorie Intake, Protein Supplementation Comments: Pt meets criteria for Severe Protein-Calorie Malnutrition in the setting of chronic illness based on severe weight loss (26.2kg/34.6% in 3 months) and moderate muscle wasting(triceps & shoulder). Nutrition Recommendation: 1. Liberalize to regular diet to minimize food restriction 2. Appetite stimulant daily 3. Ensure Enlive 240 ml TID (ordered per ONS protocol) Expected Outcomes/Goals: To maintain/gain weight To meet at least 75% estimated needs Fu 3-5 days Interpretation of weight loss: >7.5% in 3 months Muscle Mass (Severe): Mod to Severe Depletion Protein Calorie Malnutrition: Severe Is there a minimum of two crit: Yes CC Plasma Assessment Blood Product Administration S: [id number] BEVERLY GUZMAN MD Jul 13, 2024 22:45
--- NOTE | 2024-07-13 22:45 | DVHPN2 ---
Consult Progress Note Date Seen: Jul 13, 2024 Subjective Patient reports: Other (acute throbocytopenia and blood in stool , on minimal vent , levofed of 0.38 and bowel movements have started to slow . electrolytes are beign repleated . patient ocassionally gets low potassium and creatinine is slightly elevated at 4.5 ) Objective vital signs Vital Sign Date Time Temp Pulse Resp B/P (MAP) Pulse Ox O2 Delivery O2 Flow Rate FiO2 07/13/24 22:05 106 26 120/71 (87) 99 40 07/13/24 20:00 Mechanical Ventilator+ 07/13/24 20:00 99.7 211.5 07/12/24 10:00 6 Total Intake and Output 07/12/24 07/12/24 07/13/24 15:00 23:00 07:00 Intake Total 475.00 ml 1861.50 ml 2552.75 ml Output Total 175 ml 375 ml Balance 475.00 ml 1686.50 ml 2177.75 ml medications Current Medications Medications Dose Ordered Sig/Era Route Start Time Stop Time Status Last Admin Dose Admin Pantoprazole Sodium 40 mg DAILY IV 07/07/24 10:00 07/13/24 10:56 Multivitamins 1 tab DAILY PO 07/07/24 10:00 07/12/24 10:03 Acetaminophen 650 mg Q6HP PRN PO 07/06/24 20:15 07/12/24 22:29 Prochlorperazine Edisylate 5 mg Q4HPRN PRN IV 07/06/24 21:45 07/11/24 14:21 Nitroglycerin 0.4 mg Q5MINP PRN SL 07/06/24 21:45 Morphine Sulfate 2 mg Q30M PRN IV 07/06/24 21:45 Cancel Morphine Sulfate 2 mg Q30MIN PRN IV 07/07/24 06:45 Cancel Loperamide HCl 2 mg PRN PRN PO 07/08/24 08:45 Hold 07/11/24 03:15 Morphine Sulfate 2 mg Q30M PRN IV 07/08/24 09:15 07/08/24 15:51 Al Hydrox/Mg Hydrox/Simethicone 5 ml QID MT 07/08/24 18:00 07/13/24 22:04 Nystatin 5 ml QID MT 07/08/24 18:00 07/13/24 22:03 Lorazepam 0.5 mg Q6HP PRN IV 07/09/24 02:30 07/12/24 05:44 Ciprofloxacin 200 ml @ 200 mls/hr Q12HR IV 07/09/24 22:00 07/13/24 22:03 Rifampin 300 mg BID PO 07/09/24 22:00 UNV Ethambutol HCl 800 mg DAILY PO 07/09/24 15:45 07/12/24 10:03 Patient Own Medication 1 DAILY PO 07/10/24 10:00 07/12/24 10:03 Hydrocortisone Sodium Succinate 100 mg Q12HR IV 07/10/24 10:00 07/13/24 22:18 Cholestyramine Resin 4 gm BID PO 07/10/24 22:00 07/12/24 22:29 Diphenoxylate HCl/ Atropine 2.5 mg Q12HP PRN PO 07/11/24 13:30 07/12/24 05:44 Midazolam HCl 50 ml @ 1 mls/hr Q24H IV 07/12/24 10:30 07/13/24 18:09 Fentanyl Citrate 250 ml @ 2.5 mls/hr Q24H IV 07/12/24 10:30 07/13/24 08:46 Phenylephrine HCl 250 ml @ 30 mls/hr Q8H20M IV 07/12/24 10:30 07/13/24 14:47 Vasopressin 20 units/Sodium Chloride 100 ml @ 9 mls/hr Q11H7M IV 07/12/24 17:30 07/13/24 14:38 Amino Acids 0 ml @ 0 mls/hr PER PHARMACY IV 07/12/24 17:30 Diagnostic Test (Pha) 1 strip Q6HR 07/13/24 00:00 07/13/24 18:07 Insulin Human Regular FOLLOW SLIDING SCALE Q6HR SC 07/13/24 00:00 Dextrose 50 ml UD IV 07/12/24 17:45 07/12/24 23:52 Sodium Chloride 10 ml QSHIFT@10,22 IV 07/12/24 22:00 07/13/24 22:04 Sodium Bicarbonate 150 ml/Dextrose 1,150 ml @ 75 mls/hr [id number] IV 07/12/24 23:15 07/13/24 13:26 Acetaminophen 650 mg Q6HP PRN [place] 07/13/24 08:30 Trimethoprim/ Sulfamethoxazole 0 ml @ 0 mls/hr PER PHARMACY IV 07/13/24 08:30 Trimethoprim/ Sulfamethoxazole 20 ml/Dextrose 520 ml @ 346.667 mls/hr Q8HR IV 07/13/24 12:00 07/13/24 22:16 Fat Emulsion Intravenous 50 ml/ Sodium Acetate 40 meq/Calcium Gluconate 2.3 meq/ Magnesium Sulfate 4 meq/ Multivitamins 10 ml/Chromium/ Copper/Manganese/ Zinc 1 ml/Amino Acids/Dextrose/ Purified Water 1,036.9462 ml @ 43 mls/hr Q24H7M IV 07/13/24 22:00 07/14/24 21:59 07/13/24 22:07 Norepinephrine Bitartrate 32 mg/ Sodium Chloride 250 ml @ 0.938 mls/ hr Q24H IV 07/13/24 21:00 07/13/24 22:04 Physical Exam: General: Lethargic, agitated, pale appearance. Neck: Supple. No masses. HEENT: PERRL. Normal lids and conjunctiva. Moist mucous membranes. Reports headaches. Heart: Tachycardic at 125 bpm, regular rhythm. No murmur. No lower extremity edema. Lungs: Normal respiratory effort. Clear to auscultation bilaterally. No wheezes. No crackles. Abdomen: Mildly distended. Non-tender. Hepatomegaly and splenomegaly palpable up to 5 cm below costal margin. No masses or abdominal hernia. Msk: No digital cyanosis. Normal strength and tone in all 4 limbs. Skin: Pale. Warm and dry, no rashes. Neuro: Alert but lethargic. No facial droop or slurred speech. Extra-ocular movements intact. Sensation intact to soft touch in all 4 limbs. Psych: Agitated mood. Full affect. Oriented to person, place, time, and situation. laboratory and microbiology Laboratory Tests 07/13/24 20:07 07/13/24 04:35 Test 07/13/24 04:35 Range/Units Serum Glucose 127 H 74-106 mg/dL Problem List/Assessment/Plan Problems(with codes): (1) Cellulitis of abdominal wall (2) Severe anemia (3) History of HIV or AIDS (4) Pneumocystis jiroveci pneumonia (5) HIV disease (6) Opportunistic infection Problem List/Assessment/Plan ASSESSMENT AND PLAN: ID Problem List: HIV/AIDS - Non-compliance with antiretroviral therapy - 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 female with a past medical history of HIV/AIDS ( 2023: Absolute CD 4 [place] 22, % CD 4 Pos. Lymph. 3.1), untreated MAC, who presents with flu-like symptoms for the last 7 days, including green, watery diarrhea for the last 4 days. Her diarrhea is chronic and has acutely worsened to the point where she is requiring electrolyte repletion. She was diagnosed with MAC infection on July 31 and was started on ethambutol, Bactrim, and Biktarvy but has been non-compliant with her medications. Labs reveal severe anemia (Hgb 7.5), hyponatremia (Na 130), and urine drug screen positive for cannabinoids and amphetamines(in the past). CT abdomen/pelvis shows hepatosplenomegaly and numerous clusters of enlarged lymph nodes around the mesenteric root measuring up to 1.7 cm, as well as prominent lymph nodes in the pelvis and groin. From her last hospitalization, the following were positive. She was transferred to [facility] where she was diagnosed with NTM pneumonia and discharged on a regimen she has been compliant with Now presents 2 weeks later with abdominal pain, diarrhea, SOB, and hypotension 6/2: remains clinically ill , having positive stool blood , ongoing systemic mac infection is likely etiology . tachycardic 6/3: continues to have worsening diarrhea , expect antibiotics to take several days to be in effect 6/4: patient was started on Lomatil by GI and would no recommend this as patients diarrhea is largely infectious in etiology and slowing down diarrhea would worsen infection 6/5: patient was intubated due to airway protection. chest xray shows multifocal airspace disease , altered mental status is likely related to GI loses and sepsis 6/6:patient occasionally gets low potassium and creatinine is slightly elevated at 4.5 Plan: - continue empirically meropenem to cover organisms for patients infectious diarrhea - monitor renal function - if patient continues to decline would stop ciprofloxacin and switch to amicasin - Hold Lomatil - continue to keep maps above 65 and fluid resuscitation - follow up on pending stool studies - continue close ICU support and fluid resuscitation and electrolyte replacement - Provide supportive care: - Transfuse PRBCs if hemoglobin <7 g/dL. - Pain management for abdominal pain. - Antipyretics for fevers. - Further diagnostics: - Obtain Quantiferon-TB Gold test.--> negative - Send stool cultures, ova and parasites, and C. difficile testing. - Screen for CMV antibodies due to diarrhea.--> positive for exposure, would check CMV DNA levels. - Check Cryptococcus antigen.--> negative - Obtain AFB cultures from blood, stool, and sputum. - Screen for toxoplasma antigen.--> negative - Screen for syphilis, gonorrhea, chlamydia.-->negative - Check hepatitis B core IgM antibody.-->negative - Monitor patient closely. - Consider starting prednisone after ruling out cryptococcal infection. Antibiotics: - continue Biktarvy, ciprofloxacin, ethambutol. will consider starting Amikacin for broader MAC therapy or prednizone - recommend EKG in next 24hrs to see if patients QTC remains prolonged - continue Bactrim PJP prophylaxis so long as patient can tolerate - recommended expanded viral and parasitic enteric pcr panel send out. Isolation Precautions: Standard Authorized and Performed by: beverly guzman Total critical care time: Approximately 76 minutes Due to a high probability of clinically significant, life threatening deterioration, the patient required my highest level of preparedness to intervene emergently and I personally spent this critical care time directly and personally managing the patient. This critical care time included obtaining a history; examining the patient; pulse oximetry; ordering and review of studies; arranging urgent treatment with development of a management plan; evaluation of patient's response to treatment; frequent reassessment; and, discussions with other providers. This critical care time was performed to assess and manage the high probability of imminent, life-threatening deterioration that could result in multi-organ failure. It was exclusive of separately billable procedures and treating other patients and teaching time. Plan discussed with: Other Dietary Evaluation Review Recommendations by RD: Increase Calorie Intake, Protein Supplementation Comments: Pt meets criteria for Severe Protein-Calorie Malnutrition in the setting of chronic illness based on severe weight loss (26.2kg/34.6% in 3 months) and moderate muscle wasting(triceps & shoulder). Nutrition Recommendation: 1. Liberalize to regular diet to minimize food restriction 2. Appetite stimulant daily 3. Ensure Enlive 240 ml TID (ordered per ONS protocol) Expected Outcomes/Goals: To maintain/gain weight To meet at least 75% estimated needs Fu 3-5 days Interpretation of weight loss: >7.5% in 3 months Muscle Mass (Severe): Mod to Severe Depletion Protein Calorie Malnutrition: Severe Is there a minimum of two crit: Yes CC Plasma Assessment Blood Product Administration S: [id number] BEVERLY GUZMAN MD Jul 13, 2024 22:45
[2024-07-14] VITALS (120 sets, daily range): BP systolic 92–175; BP diastolic 43–98; PULSE 76–98; RESP 20–26; TEMP 97.5–99; O2SAT 98–100
--- NOTE | 2024-07-14 01:13 | DVH ---
BILATERAL LOWER EXTREMITY ARTERIAL VASCULAR ULTRASOUND CLINICAL HISTORY: MOTTLING COMPARISON: None TECHNIQUE: Real-time high-resolution grayscale and color Doppler flow imaging with pulsed duplex sono graphy is performed in the bilateral lower extremity arterial system with imaging of the femoral-popl iteal system and interrogation of the dorsalis pedis and posterior tibial arteries at the level of th e ankle. FINDINGS: Bilateral common femoral arteries not visualized due to bandaging. Imaging of the bilateral legs shows no significant atherosclerotic disease and no hemodynamically sig nificant stenosis. Peak systolic flow velocities and wave forms are satisfactory throughout the inte rrogated segments. IMPRESSION: Bilateral common femoral arteries not visualized due to bandaging. Otherwise no hemodynamically significant stenoses or occlusions identified. HS:Y
[2024-07-14 05:44] LABS: Alanine Aminotransferase 10 U/L (7-40); Albumin 1.6 g/dL (3.2-4.8); Alkaline Phosphatase 105 U/L (46-116); Anion Gap 12 (5-15); Aspartate Aminotransferase 70 U/L (13-40); BUN/Creatinine Ratio 52.1 (10.0-20.0); Blood Urea Nitrogen 25 mg/dL (9-23); Calcium 6.8 mg/dL (8.7-10.4); Carbon Dioxide 23 mmol/L (20-31); Chloride 97 mmol/L (98-107); Glucose 138 mg/dL (74-106); Magnesium 1.5 mg/dL (1.6-2.6); Phosphorus 4.2 mg/dL (2.4-5.1); Potassium 3.1 mmol/L (3.5-5.1); Sodium 132 mmol/L (136-145); Total Protein 3.8 g/dL (5.7-8.2)
[2024-07-14 05:45] LABS: Bilirubin, Total 0.2 mg/dL (0.2-1.0)
--- NOTE | 2024-07-14 05:54 | DVH ---
CHEST RADIOGRAPH Indication: Intubated Technique: Single frontal view of the chest was obtained COMPARISON: XY CHEST PORTABLE on DOS: 07/13/24, XY CHEST PORTABLE on DOS: 07/12/24, XY CHEST XRAY 1 VIEW on DOS: 07/12/24, XY CHEST PORTABLE on DOS: 07/12/24, XY CHEST PORTABLE on DOS: 07/06/24 FINDINGS: Lines and Tubes: Endotracheal tube at the thoracic inlet. Enteric catheter and left PICC in satisfac tory position. Lungs: Multifocal airspace disease. Pleura: No effusion. No pneumothorax. Cardiomediastinal contours: Unremarkable Bones: Unremarkable IMPRESSION: Recommend advancement of endotracheal tube by 2 cm.
[2024-07-14 06:49] LABS: Base Excess -2.5 mmol/L (-2.0-3.0)
[2024-07-14 08:45] LABS: Alkaline Phosphatase 82 U/L (46-116); Anion Gap 11 (5-15); BUN/Creatinine Ratio 42.2 (10.0-20.0); Blood Urea Nitrogen 19 mg/dL (9-23)
[2024-07-14 08:47] LABS: Sodium 131 mmol/L (136-145)
[2024-07-14 08:48] LABS: Alanine Aminotransferase < 9 U/L (7-40); Albumin 1.2 g/dL (3.2-4.8); Aspartate Aminotransferase 48 U/L (13-40); Bilirubin, Total < 0.2 mg/dL (0.2-1.0); Carbon Dioxide 32 mmol/L (20-31); Chloride 88 mmol/L (98-107)
[2024-07-14 08:50] LABS: Calcium 5.7 mg/dL (8.7-10.4); Glucose 525 mg/dL (74-106); Potassium 2.5 mmol/L (3.5-5.1)
--- NOTE | 2024-07-14 09:08 | DVH ---
EXAM: XR Abdomen, 1 View CLINICAL INDICATION: FOLLOW UP SMALL BOWEL OBSTRUCTION TECHNIQUE: Frontal supine view of the abdomen/pelvis. COMPARISON: XY KUB ABDOMEN SINGLE VIEW on DOS: 07/13/24, XY KUB ABDOMEN SINGLE VIEW on DOS: 07/12/24 FINDINGS: GASTROINTESTINAL TRACT: Unremarkable. No dilation. BONES/JOINTS: Unremarkable. No acute fracture. OTHER FINDINGS: . IMPRESSION: Nonobstructive bowel gas pattern.
[2024-07-14 10:39] LABS: Mean Corpuscular Hgb Conc. 32.4 g/dL (32.0-36.0); White Blood Cell 2.3 10^3/uL (4.4-10.8)
[2024-07-14 10:41] LABS: Mean Corpuscular Hemoglobin 28.4 pg (28.0-32.0); Mean Corpuscular Volume 87.5 fL (80.0-100.0); Red Blood Cells 2.29 10^6/uL (4.0-5.20)
[2024-07-14 10:44] LABS: Hemoglobin 6.5 g/dL (12.2-16.2)
[2024-07-14 10:45] LABS: Basophils % (manual) 0 (0.0-2.0); Blast Cells 0; Eosinophils % (manual) 0 (0-7); Metamyelocytes % 0; Myelocytes % 0; Promyelocytes % 0; Reactive Lymphocytes 0
[2024-07-14] MEDS ORDERED: POTASSIUM CHL 20MEQ/100ML 100 ML IV SCH (11:00)
[2024-07-14] MEDS ORDERED: DEXTROSE (50%) 50ML SYRG IV PRN (11:15)
[2024-07-14] MEDS ORDERED: INSULIN DRIP 100 UNIT/100ML 100 ML IV SCH (11:15)
[2024-07-14] MEDS ORDERED: INSULIN LANTUS (GLARGINE) 1 /0.01ml (100units/ml) SC ONE (11:15)
[2024-07-14] MEDS ORDERED: SODIUM BICARB 50mEq/50ml Vial 50 ML in SOD CHL 0.45% 1,000 ML IV SCH (11:15)
[2024-07-14 11:39] LABS: INR 1.23 (0.9-1.15); Prothrombin Time 12.8 sec (9.3-11.8)
[2024-07-14] MEDS ORDERED: ACCU-CHEK COMFORT CURVE STRIP VI SCH (12:00)
[2024-07-14 12:01] LABS: Platelet Count (auto) 30 10^3/uL (140-450)
[2024-07-14 12:03] LABS: Band Neutrophils % (manual) 2; Lymphocytes % (manual) 39 (10.0-50.0); Monocytes % (manual) 2 (0-12); Platelet Estimate Decreased
[2024-07-14] MEDS: MAGNESIUM SULFATE 1GM/100ML 100 ML IV ONE (12:24)
[2024-07-14] MEDS: POTASSIUM CHL 20MEQ/100ML 100 ML IV SCH (13:32)
[2024-07-14] MEDS: SODIUM BICARB 50mEq/50ml Vial 75 ML in D5W 5% 1,000 ML IV SCH (14:30)
[2024-07-14] MEDS ORDERED: SODIUM BICARB 50mEq/50ml Vial 75 ML in D5W 5% 1,000 ML IV SCH (14:30)
--- NOTE | 2024-07-14 16:21 | DVHPN2 ---
Subjective Intubated and sedated. Problem with the lab today as the machine is given and correct number especially with the sugar Reviewed: Care Plan, H&P, Labs, Medications, Previous Orders, Radiology Changes from previous H/P or p: No Changes General: Per HPI Objective Vitals Vital Signs Date Time Temp Pulse Resp B/P (MAP) Pulse Ox O2 Delivery O2 Flow Rate FiO2 07/14/24 15:47 97.5 88 26 125/70 97.5 07/14/24 15:15 100 07/14/24 14:00 Mechanical Ventilator+ 40 40 07/12/24 10:00 6 Intake/Output Intake and Output 07/14/24 07:00 Intake Total 7119.169 ml Output Total 1710 ml Balance 5409.169 ml Intake Oral 0 ml IV Total 6474.169 ml Blood Product 645 ml Output Urine Total 1200 ml Gastric Drainage Total 510 ml # Bowel Movements 4 General Appearance: Other (Intubated and sedated) HEENT: Atraumatic Lungs: Other (Few crackles bilateral lungs with good air entry) Cardiovascular: Regular rate Abdomen: Normal bowel sounds Medications Current Medications Medications Dose Ordered Sig/Era Route Start Time Stop Time Status Last Admin Dose Admin Pantoprazole Sodium 40 mg DAILY IV 07/07/24 10:00 07/14/24 09:42 40 MG Multivitamins 1 tab DAILY PO 07/07/24 10:00 07/14/24 09:42 1 TAB Acetaminophen 650 mg Q6HP PRN PO 07/06/24 20:15 07/12/24 22:29 650 MG Prochlorperazine Edisylate 5 mg Q4HPRN PRN IV 07/06/24 21:45 07/11/24 14:21 5 MG Nitroglycerin 0.4 mg Q5MINP PRN SL 07/06/24 21:45 Morphine Sulfate 2 mg Q30M PRN IV 07/06/24 21:45 Cancel Morphine Sulfate 2 mg Q30MIN PRN IV 07/07/24 06:45 Cancel Loperamide HCl 2 mg PRN PRN PO 07/08/24 08:45 Hold 07/11/24 03:15 2 MG Morphine Sulfate 2 mg Q30M PRN IV 07/08/24 09:15 07/08/24 15:51 2 MG Al Hydrox/Mg Hydrox/Simethicone 5 ml QID MT 07/08/24 18:00 07/14/24 12:00 5 ML Nystatin 5 ml QID MT 07/08/24 18:00 07/14/24 12:00 5 ML Lorazepam 0.5 mg Q6HP PRN IV 07/09/24 02:30 07/12/24 05:44 0.5 MG Ciprofloxacin 200 ml @ 200 mls/hr Q12HR IV 07/09/24 22:00 07/14/24 09:40 200 MLS/HR Rifampin 300 mg BID PO 07/09/24 22:00 UNV Ethambutol HCl 800 mg DAILY PO 07/09/24 15:45 07/14/24 09:43 800 MG Patient Own Medication 1 DAILY PO 07/10/24 10:00 07/14/24 09:42 1 Hydrocortisone Sodium Succinate 100 mg Q12HR IV 07/10/24 10:00 07/14/24 09:42 100 MG Cholestyramine Resin 4 gm BID PO 07/10/24 22:00 07/12/24 22:29 4 GM Diphenoxylate HCl/ Atropine 2.5 mg Q12HP PRN PO 07/11/24 13:30 07/12/24 05:44 2.5 MG Midazolam HCl 50 ml @ 1 mls/hr Q24H IV 07/12/24 10:30 07/14/24 12:07 5 MLS/HR Fentanyl Citrate 250 ml @ 2.5 mls/hr Q24H IV 07/12/24 10:30 07/14/24 08:45 1 MLS/HR Phenylephrine HCl 250 ml @ 30 mls/hr Q8H20M IV 07/12/24 10:30 07/13/24 14:47 48.75 MLS/HR Vasopressin 20 units/Sodium Chloride 100 ml @ 9 mls/hr Q11H7M IV 07/12/24 17:30 07/14/24 12:17 9 MLS/HR Amino Acids 0 ml @ 0 mls/hr PER PHARMACY IV 07/12/24 17:30 Diagnostic Test (Pha) 1 strip Q6HR 07/13/24 00:00 07/14/24 12:09 1 STRIP Insulin Human Regular FOLLOW SLIDING SCALE Q6HR SC 07/13/24 00:00 Dextrose 50 ml UD IV 07/12/24 17:45 07/12/24 23:52 50 ML Sodium Chloride 10 ml QSHIFT@10,22 IV 07/12/24 22:00 07/14/24 09:42 10 ML Acetaminophen [address] 07/13/24 08:30 Trimethoprim/ Sulfamethoxazole 0 ml @ 0 mls/hr PER PHARMACY IV 07/13/24 08:30 Trimethoprim/ Sulfamethoxazole 20 ml/Dextrose 520 ml @ 346.667 mls/hr Q8HR IV 07/13/24 12:00 07/14/24 14:00 346.667 MLS/HR Fat Emulsion Intravenous 50 ml/ Sodium Acetate 40 meq/Calcium Gluconate 2.3 meq/ Magnesium Sulfate 4 meq/ Multivitamins 10 ml/Chromium/ Copper/Manganese/ Zinc 1 ml/Amino Acids/Dextrose/ Purified Water 1,036.9462 ml @ 43 mls/hr Q24H7M IV 07/13/24 22:00 07/14/24 21:59 07/13/24 22:07 43 MLS/HR Norepinephrine Bitartrate 32 mg/ Sodium Chloride 250 ml @ 0.938 mls/ hr Q24H IV 07/13/24 21:00 07/13/24 22:04 12.188 MLS/HR Fat Emulsion Intravenous 150 ml/Sodium Chloride 60 meq/ Potassium Chloride 60 meq/ Calcium Gluconate 4.65 meq/ Magnesium Sulfate 8 meq/ Multivitamins 10 ml/Chromium/ Copper/Manganese/ Zinc 1 ml/Amino Acids/Dextrose 1,318 ml @ 55 mls/hr [id number] IV 07/14/24 22:00 07/15/24 21:59 Insulin Human (Reg)/Sodium Chloride 100 ml @ 0.5 mls/hr Q24H IV 07/14/24 11:15 UNV Diagnostic Test (Pha) 1 strip Q90MIN 07/14/24 12:00 UNV Dextrose 50 ml PRN PRN IV 07/14/24 11:15 UNV Insulin Glargine 15 units DAILY SC 07/15/24 10:00 UNV Sodium Bicarbonate 75 ml/ Dextrose 1,075 ml @ 100 mls/hr [id number] IV 07/14/24 14:30 Cancel Sodium Bicarbonate 75 ml/ Dextrose 1,075 ml @ 75 mls/hr [id number] IV 07/14/24 14:30 Laboratory Results Laboratory Tests 07/14/24 08:00 07/14/24 10:10 Chemistry Test 07/14/24 05:05 07/14/24 08:00 Albumin 1.6 g/dL (3.2-4.8) L 1.2 g/dL (3.2-4.8) L Calcium Level 6.8 mg/dL (8.7-10.4) L 5.7 mg/dL (8.7-10.4) *L Magnesium Level 1.5 mg/dL (1.6-2.6) L Phosphorus Level 4.2 mg/dL (2.4-5.1) Total Protein 3.8 g/dL (5.7-8.2) L 3.0 g/dL (5.7-8.2) L Coagulation Test 07/14/24 10:10 Prothrombin Time 12.8 sec (9.3-11.8) H Prothrombin Time INR 1.23 (0.9-1.15) H LFT Test 07/14/24 05:05 07/14/24 08:00 Alanine Aminotransferase (ALT) 10 U/L (7-40) < 9 U/L (7-40) Alkaline Phosphatase 105 U/L (46-116) 82 U/L (46-116) Aspartate Amino Transferase (AST) 70 U/L (13-40) H 48 U/L (13-40) H Total Bilirubin 0.2 mg/dL (0.2-1.0) < 0.2 mg/dL (0.2-1.0) L Urinalysis Test 07/07/24 09:40 Urine Color Light-yellow (Yellow) Urine Clarity Hazy (Clear) H Urine pH 6.0 (5.0-9.0) Urine Specific [place] 1.010 (1.001-1.035) Urine Protein Trace (Negative) H Urine Ketones Negative (Negative) Urine Blood Negative /uL (Negative) Urine Nitrite Negative (Negative) Urine Bilirubin Negative (Negative) Urine Urobilinogen Normal mg/dL (Negative) Urine Leukocyte Esterase 2+ /uL (Negative) Urine RBC 2 /hpf (0 - 4) Urine Microscopic WBC 6 /HPF (0-5) H Urine Squamous Epithelial Cells Few /hpf (<5) Urine Bacteria Few /hpf (None Seen) H Urine Hyaline Casts Few /lpf (0 - 2) Urine Yeast with Hyphae Present /hpf Urine Yeast (Budding) Occasional /hpf (None Urine Glucose Normal mg/dL (Normal) Blood Gas Results Test 07/14/24 06:39 Arterial Blood pH 7.418 (7.350-7.450) FiO2 % 40.0 Microbiology Microbiology Date/Time Source Procedure Growth Status 07/12/24 06:15 Sputum Gram Stain Pending Resulted 07/12/24 06:15 Sputum Respiratory Culture - Preliminary Resulted 07/09/24 17:00 Urine - [place] Urine Culture - Final Complete 07/08/24 04:15 Nose MRSA Screen - Final Complete 07/06/24 18:30 Stool Clostridium difficile Toxin Assay - Final Complete 07/06/24 18:21 Blood Blood Culture - Final NO GROWTH AFTER 5 DAYS OF INCUBATION. Complete Assessment/Plan Assessment/Plan Acute respiratory failure Sepsis and septic shock Severe anemia HIV positive Thrombocytopenia GI bleed UTI MAC Plan: Repeat blood sugar was 153. The 1st blood sugar this morning was falls. Transfuse PRBC. Replace potassium. Platelet transfusion. Insulin drip if the sugar goes up for real. Recheck INR. Urine culture. Antibiotics. Vasopressors. Further plan per orders. Repeat labs chest x-ray and ABG. Total critical care time 45 minutes Plan discussed with: Other (Nursing) My Orders Orders - VI JACKSON MD Procedure Category Date Status Time Urine Bacterial IBAN 07/14/24 Logged Culture 10:56 Initiate Vte ARISTEO 07/14/24 In Process Prophylaxis 10:59 Obtain Consent For: ORDERS 07/14/24 Transmitted 11:05 Packedcell-Noactive BBK 07/14/24 In Process Bleeding 11:05 Pheresis Platelets BBK 07/14/24 In Process 11:05 Administer Blood ARISTEO 07/14/24 In Process Products 11:05 D5w 5% (Dextrose 5%) PHA 07/14/24 In Process W/Sodium Bicarb 50m 14:30 Date of Service: Jul 14, 2024 Billing Provider: VI JACKSON MD Common Visit Codes: [id number] CARE 30-74 MIN VI JACKSON MD Jul 14, 2024 16:21
[2024-07-14 16:46] LABS: Hemoglobin 8.1 g/dL (12.2-16.2)
[2024-07-14 16:48] LABS: Hematocrit 24.3 % (36.0-46.0)
--- NOTE | 2024-07-14 18:39 | DVHPN2 ---
Progress Note - Dictate Date Seen: Jul 14, 2024 Medical Necessity Reason Pt with a Central, PICC or Fol: Yes The following are medically ne: Díaz Catheter Reason for díaz catheter: Strict I&O Subjective Patient seen and examined at bedside. Sedated, intubated on mechanical ventilator. Overnight events reviewed. vital signs Vital Sign Date Time Temp Pulse Resp B/P (MAP) Pulse Ox O2 Delivery O2 Flow Rate FiO2 07/14/24 18:30 97.9 81 26 119/80 (93) 100 208.2 126/71 (89) 07/14/24 18:00 Mechanical Ventilator+ 40 40 07/12/24 10:00 6 Total Intake and Output 07/13/24 07/13/24 07/14/24 15:00 23:00 07:00 Intake Total 2572.50 ml 2369.00 ml 2177.669 ml Output Total 950 ml 760 ml Balance 2572.50 ml 1419.00 ml 1417.669 ml medications Current Medications Medications Dose Ordered Sig/Era Route Start Time Stop Time Status Last Admin Dose Admin Pantoprazole Sodium 40 mg DAILY IV 07/07/24 10:00 07/14/24 09:42 40 MG Multivitamins 1 tab DAILY PO 07/07/24 10:00 07/14/24 09:42 1 TAB Acetaminophen 650 mg Q6HP PRN PO 07/06/24 20:15 07/12/24 22:29 650 MG Prochlorperazine Edisylate 5 mg Q4HPRN PRN IV 07/06/24 21:45 07/11/24 14:21 5 MG Nitroglycerin 0.4 mg Q5MINP PRN SL 07/06/24 21:45 Morphine Sulfate 2 mg Q30M PRN IV 07/06/24 21:45 Cancel Morphine Sulfate 2 mg Q30MIN PRN IV 07/07/24 06:45 Cancel Loperamide HCl 2 mg PRN PRN PO 07/08/24 08:45 Hold 07/11/24 03:15 2 MG Morphine Sulfate 2 mg Q30M PRN IV 07/08/24 09:15 07/08/24 15:51 2 MG Al Hydrox/Mg Hydrox/Simethicone 5 ml QID MT 07/08/24 18:00 07/14/24 16:57 5 ML Nystatin 5 ml QID MT 07/08/24 18:00 07/14/24 16:57 5 ML Lorazepam 0.5 mg Q6HP PRN IV 07/09/24 02:30 07/12/24 05:44 0.5 MG Ciprofloxacin 200 ml @ 200 mls/hr Q12HR IV 07/09/24 22:00 07/14/24 09:40 200 MLS/HR Rifampin 300 mg BID PO 07/09/24 22:00 UNV Ethambutol HCl 800 mg DAILY PO 07/09/24 15:45 07/14/24 09:43 800 MG Patient Own Medication 1 DAILY PO 07/10/24 10:00 07/14/24 09:42 1 Hydrocortisone Sodium Succinate 100 mg Q12HR IV 07/10/24 10:00 07/14/24 09:42 100 MG Cholestyramine Resin 4 gm BID PO 07/10/24 22:00 07/12/24 22:29 4 GM Diphenoxylate HCl/ Atropine 2.5 mg Q12HP PRN PO 07/11/24 13:30 07/12/24 05:44 2.5 MG Midazolam HCl 50 ml @ 1 mls/hr Q24H IV 07/12/24 10:30 07/14/24 12:07 5 MLS/HR Fentanyl Citrate 250 ml @ 2.5 mls/hr Q24H IV 07/12/24 10:30 07/14/24 08:45 1 MLS/HR Phenylephrine HCl 250 ml @ 30 mls/hr Q8H20M IV 07/12/24 10:30 07/13/24 14:47 48.75 MLS/HR Vasopressin 20 units/Sodium Chloride 100 ml @ 9 mls/hr Q11H7M IV 07/12/24 17:30 07/14/24 12:17 9 MLS/HR Amino Acids 0 ml @ 0 mls/hr PER PHARMACY IV 07/12/24 17:30 Diagnostic Test (Pha) 1 strip Q6HR 07/13/24 00:00 07/14/24 16:58 1 STRIP Insulin Human Regular FOLLOW SLIDING SCALE Q6HR SC 07/13/24 00:00 Dextrose 50 ml UD IV 07/12/24 17:45 07/12/24 23:52 50 ML Sodium Chloride 10 ml QSHIFT@10,22 IV 07/12/24 22:00 07/14/24 09:42 10 ML Acetaminophen 650 mg Q6HP PRN VT 07/13/24 08:30 Trimethoprim/ Sulfamethoxazole 0 ml @ 0 mls/hr PER PHARMACY IV 07/13/24 08:30 Trimethoprim/ Sulfamethoxazole 20 ml/Dextrose 520 ml @ 346.667 mls/hr Q8HR IV 07/13/24 12:00 07/14/24 14:00 346.667 MLS/HR Fat Emulsion Intravenous 50 ml/ Sodium Acetate 40 meq/Calcium Gluconate 2.3 meq/ Magnesium Sulfate 4 meq/ Multivitamins 10 ml/Chromium/ Copper/Manganese/ Zinc 1 ml/Amino Acids/Dextrose/ Purified Water 1,036.9462 ml @ 43 mls/hr Q24H7M IV 07/13/24 22:00 07/14/24 21:59 07/13/24 22:07 43 MLS/HR Norepinephrine Bitartrate 32 mg/ Sodium Chloride 250 ml @ 0.938 mls/ hr Q24H IV 07/13/24 21:00 07/13/24 22:04 12.188 MLS/HR Fat Emulsion Intravenous 150 ml/Sodium Chloride 60 meq/ Potassium Chloride 60 meq/ Calcium Gluconate 4.65 meq/ Magnesium Sulfate 8 meq/ Multivitamins 10 ml/Chromium/ Copper/Manganese/ Zinc 1 ml/Amino Acids/Dextrose 1,318 ml @ 55 mls/hr [id number] IV 07/14/24 22:00 07/15/24 21:59 Insulin Human (Reg)/Sodium Chloride 100 ml @ 0.5 mls/hr Q24H IV 07/14/24 11:15 UNV Diagnostic Test (Pha) 1 strip Q90MIN 07/14/24 12:00 UNV Dextrose 50 ml PRN PRN IV 07/14/24 11:15 UNV Insulin Glargine 15 units DAILY SC 07/15/24 10:00 UNV Sodium Bicarbonate 75 ml/ Dextrose 1,075 ml @ 100 mls/hr [id number] IV 07/14/24 14:30 Cancel Sodium Bicarbonate 75 ml/ Dextrose 1,075 ml @ 75 mls/hr [id number] IV 07/14/24 14:30 07/14/24 14:30 75 MLS/HR objective Gen.: Patient lying in bed in medical ICU. Sedated, intubated on mechanical ventilator. Head: Normocephalic, atraumatic. Eyes: PERRLA. Ears: Normal external anatomy. Throat: Endotracheal tube and orogastric tube in place. Neck: Supple, trachea midline. Chest: Transmitted breath sounds bilaterally. Decreased air entry bilaterally. No wheezing. Bibasilar crackles. Cardiovascular: Positive S1, positive S2. Regular rate and rhythm. Abdomen: Positive bowel sounds in all 4 quadrants. Soft, nontender, nondistended. : Díaz in place. Normal external genitalia. Rectal: Deferred. Skin: Warm, dry. Intact. Extremities: 2+ radial pulses bilaterally. No lower extremity edema. Neuro: Sedated. laboratory and microbiology Laboratory Tests 07/14/24 16:25 07/14/24 10:10 07/14/24 08:00 Test 07/14/24 08:00 Range/Units Serum Glucose 525 *H 74-106 mg/dL Assessment/Plan Impression: Acute hypoxic respiratory failure On mechanical ventilator Septic shock Pneumonia Anemia, rule out GI hemorrhage Human immunodeficiency virus disease Mycobacterium avium complex Events: Remains on vent support On AC mode; RR 26, VT 450, PEEP 8, FiO2 40% Sedated on Versed, Fentanyl ABG reviewed, compensated CXR reviewed, demonstrates multifocal airspace disease. On pressors for hemodynamic support Levophed 10 mcg/min, vasopressin 0.03 units/min Titrate to keep mean arterial pressure greater than 65 mmHg Off Tay-Synephrine Thrombocytopenia - platelets trended up to 30 K. Anemia - hemoglobin of 6.5 g/dL Plan for 1 unit pRBC transfusion Continue IV steroids Continue antibiotics. Sputum cultures grew normal oropharyngeal anyi TPN for nutritional support Labs and imaging reviewed. Rest of plan as noted below. Plan: s/p intubation on mechanical ventilator. On AC mode; RR 26, VT 450, PEEP 8, FiO2 40% Titrate FIO2 to keep O2 saturation above 90%. VAP bundle. Daily ABG and CXR while intubated Sedate for ventilator synchrony On bicarb drip. IV steroids Continue antibiotics. F/u cultures. Pressors as necessary for hemodynamic support Titrate to keep mean arterial pressure greater than 65 mmHg. Monitor hemoglobin Monitor renal function Monitor electrolytes. Supplement as necessary. Monitor ins and outs. Clinimix for nutritional support GI prophylaxis. DVT prophylaxis. Prognosis: Poor given patient's multiple co-morbidities. Condition: Critical Rest of plan per hospitalist and other consultants. A total of 35 minutes of critical care time was spent reviewing the patient record, examining the patient, making a diagnostic and therapeutic plan, discussing this plan with the medical personnel, following up on diagnostic studies and following the patient for clinical stability excluding any and all procedures. At least 50% of this time was spent in direct, [id number] contact. Thank you, BABAK Chaves, for allowing me to participate in this patient's care. Further recommendations will depend on the patient's clinical course. Please do not hesitate to contact me if you have any questions or concerns. This medical document was created using an electronic medical record system with [employer] dictation system. Although these documentations are being carefully reviewed, there may still be some phonetic and typographical changes. The errors are purely typographical, due to imperfection on the software program, and do not reflect any compromise in the patient's medical care. Dietary Evaluation Review Recommendations by RD: Increase Calorie Intake, Protein Supplementation Comments: Pt meets criteria for Severe Protein-Calorie Malnutrition in the setting of chronic illness based on severe weight loss (26.2kg/34.6% in 3 months) and moderate muscle wasting(triceps & shoulder). Nutrition Recommendation: 1. Liberalize to regular diet to minimize food restriction 2. Appetite stimulant daily 3. Ensure Enlive 240 ml TID (ordered per ONS protocol) Expected Outcomes/Goals: To maintain/gain weight To meet at least 75% estimated needs Fu 3-5 days Interpretation of weight loss: >7.5% in 3 months Muscle Mass (Severe): Mod to Severe Depletion Protein Calorie Malnutrition: Severe Is there a minimum of two crit: Yes Plan discussed with: Other ([facility]MA Grimes) Critical Care Time(min): 35 CC Plasma Assessment Blood Product Administration S: [id number] MAGALY LOPEZ MD Jul 14, 2024 18:39
[2024-07-14] MEDS: TPN PER PHARMACY IV NR (22:18)
[2024-07-14 22:33] LABS: Hematocrit 24.3 % (36.0-46.0); Hemoglobin 8.2 g/dL (12.2-16.2)
[2024-07-15] VITALS (108 sets, daily range): BP systolic 93–198; BP diastolic 49–129; PULSE 73–129; RESP 18–28; TEMP 97.9–99.1; O2SAT 95–100
[2024-07-15 02:25] LABS: Magnesium 1.7 mg/dL (1.6-2.6)
[2024-07-15 02:35] LABS: Phosphorus 1.7 mg/dL (2.4-5.1)
[2024-07-15] MEDS: MAGNESIUM SULFATE 1GM/100ML 100 ML IV ONE ×2 (04:16→08:54)
[2024-07-15 04:58] LABS: Hemoglobin 7.7 g/dL (12.2-16.2); Red Cell Distribution Width 17.7 % (11.8-14.3); White Blood Cell 3.6 10^3/uL (4.4-10.8)
[2024-07-15 04:59] LABS: Hematocrit 22.9 % (36.0-46.0); Mean Corpuscular Hemoglobin 29.6 pg (28.0-32.0); Mean Corpuscular Hgb Conc. 33.8 g/dL (32.0-36.0); Mean Corpuscular Volume 87.5 fL (80.0-100.0); Red Blood Cells 2.61 10^6/uL (4.0-5.20)
[2024-07-15 05:03] LABS: Basophils % (manual) 0 (0.0-2.0); Blast Cells 0; Eosinophils % (manual) 0 (0-7); Metamyelocytes % 0; Monocytes % (manual) 0 (0-12); Myelocytes % 0; Promyelocytes % 0; Reactive Lymphocytes 0
[2024-07-15 05:08] LABS: INR 1.15 (0.9-1.15); Platelet Count (auto) 9 10^3/uL (140-450)
[2024-07-15 05:14] LABS: Alkaline Phosphatase 95 U/L (46-116); Anion Gap 9 (5-15); Aspartate Aminotransferase 35 U/L (13-40); Blood Urea Nitrogen 18 mg/dL (9-23); Carbon Dioxide 28 mmol/L (20-31); Magnesium 1.7 mg/dL (1.6-2.6); Potassium 4.3 mmol/L (3.5-5.1)
[2024-07-15 05:26] LABS: Chloride 92 mmol/L (98-107); Sodium 129 mmol/L (136-145)
[2024-07-15 05:27] LABS: Alanine Aminotransferase < 9 U/L (7-40); Albumin 1.4 g/dL (3.2-4.8); Bilirubin, Total 0.2 mg/dL (0.2-1.0); Calcium 6.8 mg/dL (8.7-10.4); Phosphorus 1.8 mg/dL (2.4-5.1); Total Protein 3.6 g/dL (5.7-8.2)
[2024-07-15 05:28] LABS: Glucose 560 mg/dL (74-106)
[2024-07-15 05:47] LABS: Base Excess 5.9 mmol/L (-2.0-3.0)
--- NOTE | 2024-07-15 06:13 | DVH ---
CHEST RADIOGRAPH Indication: fu Technique: Single frontal view of the chest was obtained COMPARISON: XY CHEST PORTABLE on DOS: 07/14/24, XY CHEST PORTABLE on DOS: 07/13/24, XY CHEST PORTABLE on DOS: 07/12/24, XY CHEST XRAY 1 VIEW on DOS: 07/12/24, XY CHEST PORTABLE on DOS: 07/12/24 FINDINGS: Lines and Tubes: Interval advancement of the endotracheal tube such that the tip now projects approxi mately 2.0 cm above the level of the johnny. The remaining lines and tubes are unchanged. Lungs: Mild patchy bibasilar pulmonary airspace disease and/or atelectasis. Pleura: No effusion. No pneumothorax. Cardiomediastinal contours: Unremarkable Bones: Unremarkable IMPRESSION: 1. Mild patchy bibasilar pulmonary airspace disease and/or atelectasis. 2. Interval advancement of endotracheal tube as above. Remaining lines and tubes unchanged.
[2024-07-15 07:24] LABS: Band Neutrophils % (manual) 26; Lymphocytes % (manual) 20 (10.0-50.0)
[2024-07-15 07:25] LABS: Anisocytosis Slight; Platelet Estimate Markedly Decreased
[2024-07-15 08:48] LABS: Base Excess 5.7 mmol/L (-2.0-3.0)
--- NOTE | 2024-07-15 09:13 | DVHINCON2 ---
Date Seen: Jul 15, 2024 Referring Physician MAGALI Vick Reason for Consultation Cardiac arrhythmias History of Present Illness This is a 28-year-old female patient who presents to emergency room with chief complaint of generalized weakness. At the time of assessment, the patient is chemically sedated and mechanically ventilated. History of present illness obtained from medical records and patient's bedside RN. According to records, the patient initially presented with generalized weakness as well as dark tarry stools. During this hospital stay, the the patient's respiratory status became compromised and she was subsequently intubated for airway protection. Cardiolo gy has been consulted at this time for cardiac arrhythmias. Initial twelve lead electrocardiogram done on day of admission revealed sinus tachycardia with prolonged QTc interval. After reviewing hydropulper operator overnight, the patient has been having frequent PVCs and has had multiple episodes of nonsustained V- tach. Significant past medical history includes HIV, mycobacterium avium complex (MAC), thyroid disease, and tobacco use. Past Medical History Past medical history reviewed. No other significant than mentioned above. Past Surgical History Cholecystectomy Tonsillectomy Family History: Patient reports no known family medical history. Family History Family history reviewed. Social History Noted that patient has history of tobacco use, unable to obtain any further information Allergies: Coded Allergies: NO KNOWN ALLERGIES (Unverified , 10/22/20) Home Meds Active Scripts Sulfamethoxazole W/Trimethopri (Bactrim Ds Tablet) 1 Tab Tb, 2 TAB PO Q8HR for 21 Days, #126 TAB Prov:MAXIM NIELSEN PAC 07/08/23 Benzonatate (Benzonatate) 100 Mg Cap, 1-2 CAP PO Q4HR, #60 CAP Prov:MAXIM NIELSEN PAC 07/08/23 Permethrin (Elimite) 5 % Cre, 1 APPLIC TOP ONCE, #60 GRAMS 1 Refill Prov:TONY NAVARRO 05/13/22 Cephalexin ( Keflex 500) 500 Mg Cap, 1 CAP PO QID, #40 CAP Prov:TONY NAVARRO 05/13/22 Sulfamethoxazole W/Trimethopri (Bactrim Ds Tablet) 1 Tab Tb, 1 TAB PO BID for 10 Days, #20 TAB Prov:TONY NAVARRO 05/13/22 Ibuprofen (Ibuprofen) 800 Mg Tab, 1 TAB PO TID, #30 TAB Prov:TONY NAVARRO 05/13/22 Clindamycin Hcl (Clindamycin Hcl) 300 Mg Cap, 1 CAP PO TID for 10 Days, #21 CAP 0 Refills Prov:AMAYA SÁNCHEZ 11/19/21 Reported Medications Htxwzqjcbxg-Xhrpydtvbtaak-Ppcc (Biktarvy 50-200-25 mg) 1 Tab Tab, 1 TAB PO, TAB 07/11/24 Levothyroxine Sodium (SYNTHROID) 100 Mcg/5 Ml Ij, 100 MCG IV, INJ 07/11/24 Midodrine HCl (Midodrine HCl) 10 Mg Tab, 10 MG GT, TAB 07/11/24 Azithromycin (Azithromycin) 500 Mg Tab, 500 MG PO DAILY 07/11/24 Sulfamethoxazole-Trimethoprim (Bactrim) 1 Tab Tab, 1 TAB PO DAILY, MG 07/11/24 Ethambutol Hcl (Ethambutol Hcl) 400 Mg Tab, 1200 MG PO DAILY, MG 07/11/24 Vit W/ Ferrous Fumara ( One Daily) Daily Tab, 1 TAB PO DAILY, #90 TAB 3 Refills 10/22/20 Emtricitabine-Tenofovir Disopr (Truvada) Tab, 1 TAB PO DAILY, #30 TAB 2 Refills 10/22/20 Home Meds Home medications reviewed. Current Medications Current Medications Medications (Trade) Dose Ordered Sig/Era Route PRN Reason Start Time Stop Time Status Last Admin Fat Emulsion Intravenous 150 ml/Sodium Chloride 60 meq/ Potassium Chloride 60 meq/ Calcium Gluconate 4.65 meq/ Magnesium Sulfate 8 meq/ Multivitamins 10 ml/Chromium/ Copper/Manganese/ Zinc 1 ml/Amino Acids/Dextrose 1,318 ml @ 55 mls/hr [id number] IV 07/14/24 22:00 07/15/24 21:59 07/14/24 22:18 Potassium Chloride 100 ml @ 50 mls/hr Q2H IV 07/14/24 12:00 07/14/24 15:59 DC 07/14/24 13:43 Potassium Chloride 100 ml @ 50 mls/hr Q2H IV 07/14/24 11:00 07/14/24 11:10 DC Sodium Bicarbonate 50 ml/ Sodium Chloride 1,050 ml @ 50 mls/hr Q21H IV 07/14/24 11:15 07/14/24 14:25 DC Insulin Human (Reg)/Sodium Chloride 100 ml @ 0.5 mls/hr Q24H IV 07/14/24 11:15 UNV Diagnostic Test (Pha) (Accu-Chek Comfort Curve T) 1 strip Q90MIN 07/14/24 12:00 UNV Dextrose 50 ml PRN PRN IV BG LESS Than 70 AND CALL MD 07/14/24 11:15 UNV Insulin Glargine (Lantus) 15 units DAILY SC 07/15/24 10:00 UNV Sodium Bicarbonate 75 ml/ Dextrose 1,075 ml @ 100 mls/hr [id number] IV 07/14/24 14:30 Cancel Sodium Bicarbonate 75 ml/ Dextrose 1,075 ml @ 75 mls/hr [id number] IV 07/14/24 14:30 07/14/24 14:30 Fat Emulsion Intravenous 150 ml/Sodium Chloride 80 meq/ Sodium Phosphate 20 meq/Potassium Chloride 60 meq/ Calcium Gluconate 4.65 meq/ Magnesium Sulfate 10 meq/ Multivitamins 10 ml/Chromium/ Copper/Manganese/ Zinc 1 ml/Amino Acids/Dextrose 1,428.5 ml @ 59 mls/hr [id number] IV 07/15/24 22:00 07/16/24 21:59 Review of Systems Constitutional: Generalized weakness Ears, Nose, & Throat: No symptom reported Eyes: No symptom reported Neurological: No symptoms reported Pulmonary/Respiratory: No symptoms reported Cardiovascular: No symptom reported Gastrointestinal: No symptom reported Genitourinary: No symptom reported Musculoskeletal: No symptom reported Skin: No symptom reported Psychiatric: No symptom reported Endocrine: No symptom reported Hematologic/Lymphatic: No symptom reported Vital Signs Vital Signs Date Time Temp Pulse Resp B/P (MAP) Pulse Ox O2 Delivery O2 Flow Rate FiO2 07/15/24 08:30 98.6 107 24 137/73 (94) 98 209.5 07/15/24 08:15 30 07/15/24 06:00 Mechanical Ventilator+ Physical Exam General Appearance: Calm. Pulmonary/Respiratory: Clear, bilateral breaths sounds. Mechanically ventilated Cardiovascular/Chest: Regular rate and rhythm. Peripheral Pulses: 2+ Radial (R). 2+ Radial (L). 2+ Pedal (R). 2+ Pedal (L) Abdominal Exam: Normal bowel sounds. Ankle Exam: Bilateral 4+ pitting edema Lower extremities: Bilateral 4+ pitting edema Neuro/Mental Status: Chemically sedated Thoughts/Psych: Deferred Appearance: No acute distress. Skin Exam: Normal inspection. Normal color. Warm and dry. Labs/Diagnostic Data Labs Test 07/15/24 08:42 07/15/24 05:35 07/15/24 05:27 07/15/24 04:34 Range/Units Blood Gas Specimen Type Arterial Blood Gas Sample Site Arterial line Blood Gas Patient Temperature 37.0 Arterial Blood Date Drawn [id number] Arterial Blood pH 7.536 H 7.350-7.450 Arterial Blood Partial Pressure CO2 34.5 32.0-45.0 mmHg Arterial Blood Partial Pressure O2 99.3 83.0-108.0 mmHg Arterial Blood HCO3 28.6 H 21.0-28.0 mmol/L Arterial Blood Oxygen Saturation 97.3 94.0-98.0 % Arterial Blood Base Excess 5.7 H -2.0-3.0 mmol/L Arterial Blood Oxyhemoglobin 95.5 94.0-98.0 % Arterial Blood Carboxyhemoglobin 1.5 0.5-1.5 % Arterial Blood Methemoglobin 0.3 0.0-1.5 % Jhonathan Test N/a Blood Gas Total Hemoglobin 8.10 L 12.0-16.0 g/dL Blood Gas Set Respiration Rate 20.0 Blood Gas Modality Vent - ac FiO2 % 30.0 Blood Gas Tidal Volume 450.0 Blood Gas PEEP or CPAP 5.0 Blood Gas Critical Value Read Back yes Blood Gas Notified Whom magali kilgore Blood Gas Notified Time [id number] Blood Gas Notified By mina cee POC Glucose 169 H 70-106 mg/dl White Blood Count 3.6 #L 4.4-10.8 10^3/uL Red Blood Count 2.61 L 4.0-5.20 10^6/uL Hemoglobin 7.7 L 12.2-16.2 g/dL Hematocrit 22.9 L 36.0-46.0 % Mean Corpuscular Volume 87.5 80.0-100.0 fL Mean Corpuscular Hemoglobin 29.6 28.0-32.0 pg Mean Corpuscular Hemoglobin Concent 33.8 32.0-36.0 g/dL Red Cell Distribution Width 17.7 H 11.8-14.3 % Platelet Count 9 #*L 140-450 10^3/uL Mean Platelet Volume 10.9 H 6.9-10.8 fL Neutrophils (%) (Auto) 37.0-80.0 % Lymphocytes (%) (Auto) 10.0-50.0 % Monocytes (%) (Auto) 0.0-12.0 % Basophils (%) (Auto) 0.0-2.0 % Neutrophils # (Auto) 1.6-8.6 10 ^3/uL Lymphocytes # (Auto) 0.4-5.4 10 ^3/uL Monocytes # (Auto) 0-1.3 10 ^3/uL Differential Total Cells Counted 100.0 100 Neutrophils % (Manual) 54 37.0-80.0 Band Neutrophils % (Manual) 26 Lymphocytes % (Manual) 20 10.0-50.0 Monocytes % (Manual) 0 0-12 Eosinophils % (Manual) 0 0-7 Basophils % (Manual) 0 0.0-2.0 Metamyelocytes % (manual) 0 Myelocytes % (Manual) 0 Promyelocytes % (Manual) 0 Blast Cells % (Manual) 0 Reactive Lymphocytes 0 Platelet Estimate Markedly decreased Anisocytosis (manual) Slight Prothrombin Time 12.0 H 9.3-11.8 sec Prothrombin Time INR 1.15 0.9-1.15 Sodium Level 129 L 136-145 mmol/L Potassium Level 4.3 3.5-5.1 mmol/L Chloride Level 92 L 98-107 mmol/L Carbon Dioxide Level 28 20-31 mmol/L Anion Gap 9 5-15 Blood Urea Nitrogen 18 9-23 mg/dL Creatinine 0.45 L 0.550-1.02 mg/dL Glomerular Filtration Rate Calc 133 >90 mL/min BUN/Creatinine Ratio 40.0 H 10.0-20.0 Serum Glucose 560 *H 74-106 mg/dL Calcium Level 6.8 L 8.7-10.4 mg/dL Phosphorus Level 1.8 L 2.4-5.1 mg/dL Magnesium Level 1.7 1.6-2.6 mg/dL Total Bilirubin 0.2 0.2-1.0 mg/dL Aspartate Amino Transferase (AST) 35 13-40 U/L Alanine Aminotransferase (ALT) < 9 7-40 U/L Alkaline Phosphatase 95 46-116 U/L B-Type Natriuretic Peptide 1122.32 0-100 pg/mL Total Protein 3.6 L 5.7-8.2 g/dL Albumin 1.4 L 3.2-4.8 g/dL Test 07/13/24 20:07 07/13/24 04:35 07/12/24 21:47 07/12/24 16:10 Range/Units Nucleated Red Blood Cells 3.0 % Triglycerides Level 121 < 150 mg/dL Blood Gas Spontaneous Rate 26 Activated Partial Thromboplast Time 47.8 H 24.5-34.5 SEC Test 07/12/24 10:18 07/12/24 03:57 07/10/24 08:08 07/08/24 22:00 Range/Units Blood Gas Liter Flow 5.00 Eosinophils (%) (Auto) 0.2 0.0-7.0 % Eosinophils # (Auto) 0 0-0.8 10 ^3/uL Basophils # (Auto) 0 0-0.2 10 ^3/uL Venous Blood pH 7.332 7.320-7.430 Venous Blood pCO2 at Patient Temp 25.6 L 38.0-54.0 mmHg Venous Blood pO2 at Patient Temp < 36.5 23.0-48.0 mmHg Venous Blood HCO3 13.3 L 22.0-29.0 mmol/L Venous Blood Base Excess -10.7 L -2.0-3.0 mmol/L Stool Occult Blood Positive Negative Stool Occult Blood Sample #3 Negative Test 07/08/24 08:34 07/08/24 04:20 07/07/24 09:40 07/06/24 21:10 Range/Units Erythrocyte Sedimentation Rate 9 0-20 mm/hr C-Reactive Protein High Sensitivity 8.58 H <1.0 mg/dL Urine Color Light-yellow Yellow Urine Clarity Hazy H Clear Urine pH 6.0 5.0-9.0 Urine Specific [place] 1.010 1.001-1.035 Urine Protein Trace H Negative Urine Ketones Negative Negative Urine Blood Negative Negative /uL Urine Nitrite Negative Negative Urine Bilirubin Negative Negative Urine Urobilinogen Normal Negative mg/dL Urine Leukocyte Esterase 2+ Negative /uL Urine RBC 2 0 - 4 /hpf Urine Microscopic WBC 6 H 0-5 /HPF Urine Squamous Epithelial Cells Few <5 /hpf Urine Bacteria Few H None Seen /hpf Urine Hyaline Casts Few 0 - 2 /lpf Urine Yeast with Hyphae Present /hpf Urine Yeast (Budding) Occasional None Seen /hpf Urine Glucose Normal Normal mg/dL Troponin I High Sensitivity < 3 L </=34 ng/L Test 07/06/24 20:11 07/06/24 18:30 07/06/24 18:21 Range/Units Lactic Acid Level 1.5 0.4-2.0 mmol/L Stool for White Cells Few Lipase 20 12-53 U/L Microbiology Date/Time Source Procedure Growth Status 07/12/24 06:15 Sputum Gram Stain - Final Resulted 07/12/24 06:15 Sputum Respiratory Culture - Preliminary Resulted 07/09/24 17:00 Urine - [place] Urine Culture - Final Complete 07/08/24 04:15 Nose MRSA Screen - Final Complete 07/06/24 18:30 Stool Clostridium difficile Toxin Assay - Final Complete 07/06/24 18:21 Blood Blood Culture - Final NO GROWTH AFTER 5 DAYS OF INCUBATION. Complete Assessment Sinus rhythm with bigeminy PVCs Nonsustained V-tach Chronic HFmrEF, NYHA class III History of pericardial effusion Septic shock Acute hypoxic respiratory failure Pneumonia HIV Severe anemia Thrombocytopenia Hx of mycobacterium avium complex (MAC) Thyroid disease Tobacco use Plan/Recommendation We will continue with the following plan/recommendations (Dr. Castro): Patient seen and examined at bedside with . Transthoracic echocardiogram performed on 04/30/2024 reveals EF 48% with mild global pericardial effusion. We will repeat echocardiogram to reassess pericardial effusion. Unable to initiate guideline directed medical therapy for CHF given that patient is on multiple vasopressors. The patient is presenting with frequent ectopy including PVCs and nonsustained V-tach. Cardiac arrhythmias most likely multifactorial and associated with electrolyte imbalance, severe anemia, and septic shock. We will recommend to monitor and replete electrolytes as needed, keep potassium greater than four and magnesium greater than two. Closely monitor hemoglobin and hematocrit levels and transfuse PRBC as necessary. Patient currently on vasopressor therapy. Continue for hemodynamic support. Close telemetry monitoring. Thank you for allowing us to care for this patient. Please call with any questions or concerns. Critical care time spent: 44 minutes This medical document was created using an electronic medical record system with voice recognition software and computerized dictation system. Although this document has been carefully reviewed, there might still be some phonetic and typographical errors. Occasional wrong-word or ``sound-alike substitutions may have occurred due to the inherent limitations of voice recognition software. These areas are purely typographical due to imperfections of the software programs and do not reflect any compromise in the patient's medical care. Please read the chart carefully and recognize, using context, where these substitutions have occurred. Plan discussed with: Other (Bedside RN) NYHA Physical activity limitations: NA Date of Service: Jul 15, 2024 Billing Provider: CHANDU JUNIOR Cardiology Common Codes: 54284-RPRMCXD INP/OBS CARE (High) Cardiology Consultation Codes: 40740-[id number] CONSULT <45MIN CHANDU JUNIOR Jul 15, 2024 09:13
[2024-07-15] MEDS ORDERED: INSULIN LANTUS (GLARGINE) 1 /0.01ml (100units/ml) SC SCH (10:00)
[2024-07-15 10:23] LABS: LDL Cholesterol 7 mg/dL (< 100)
[2024-07-15 10:24] LABS: Cholesterol < 50.0 mg/dL (< 200)
[2024-07-15 10:25] LABS: HDL Cholesterol < 5 mg/dL (40-59); Triglycerides 321 mg/dL (< 150)
[2024-07-15] MEDS: FUROSEMIDE 20 MG/2 ML VIAL IV ONE (10:40)
[2024-07-15] MEDS: SODIUM PHOSPHATES 40 MEQ in D5W 5% 250 ML IV ONE (11:00)
--- NOTE | 2024-07-15 15:30 | DVHPN2 ---
Subjective Intubated and sedated. Ongoing problem with the lab machine reporting very high blood sugar. Repeat Accu-Chek at bedside is slightly elevated. Reviewed: Care Plan, H&P, Labs, Medications, Previous Orders, Radiology, Other Changes from previous H/P or p: No Changes General: Per HPI Objective Vitals Vital Signs Date Time Temp Pulse Resp B/P (MAP) Pulse Ox O2 Delivery O2 Flow Rate FiO2 07/15/24 14:15 98.2 97 23 105/72 (83) 97 208.8 127/65 (85) 07/15/24 14:00 Mechanical Ventilator+ 40 40 Intake/Output Intake and Output 07/15/24 07:00 Intake Total 7564.426 ml Output Total 2015 ml Balance 5549.426 ml Intake Oral 200 ml IV Total 6232.426 ml Blood Product 500 ml Other 632 ml Output Urine Total 2000 ml Gastric Drainage Total 15 ml # Bowel Movements 1 General Appearance: Other (Intubated and sedated) HEENT: Atraumatic Lungs: Other (Few crackles bilateral lungs with good air entry) Cardiovascular: Regular rate Abdomen: Normal bowel sounds Medications Current Medications Medications Dose Ordered Sig/Era Route Start Time Stop Time Status Last Admin Dose Admin Pantoprazole Sodium 40 mg DAILY IV 07/07/24 10:00 07/15/24 10:04 40 MG Multivitamins 1 tab DAILY PO 07/07/24 10:00 07/15/24 10:06 1 TAB Acetaminophen 650 mg Q6HP PRN PO 07/06/24 20:15 07/12/24 22:29 650 MG Prochlorperazine Edisylate 5 mg Q4HPRN PRN IV 07/06/24 21:45 07/11/24 14:21 5 MG Nitroglycerin 0.4 mg Q5MINP PRN SL 07/06/24 21:45 Morphine Sulfate 2 mg Q30M PRN IV 07/06/24 21:45 Cancel Morphine Sulfate 2 mg Q30MIN PRN IV 07/07/24 06:45 Cancel Loperamide HCl 2 mg PRN PRN PO 07/08/24 08:45 Hold 07/11/24 03:15 2 MG Morphine Sulfate 2 mg Q30M PRN IV 07/08/24 09:15 07/08/24 15:51 2 MG Al Hydrox/Mg Hydrox/Simethicone 5 ml QID MT 07/08/24 18:00 07/15/24 11:32 5 ML Nystatin 5 ml QID MT 07/08/24 18:00 07/15/24 11:32 5 ML Lorazepam 0.5 mg Q6HP PRN IV 07/09/24 02:30 07/12/24 05:44 0.5 MG Ciprofloxacin 200 ml @ 200 mls/hr Q12HR IV 07/09/24 22:00 07/15/24 10:04 200 MLS/HR Rifampin 300 mg BID PO 07/09/24 22:00 UNV Ethambutol HCl 800 mg DAILY PO 07/09/24 15:45 07/15/24 10:05 800 MG Patient Own Medication 1 DAILY PO 07/10/24 10:00 07/15/24 10:06 1 Hydrocortisone Sodium Succinate 100 mg Q12HR IV 07/10/24 10:00 07/15/24 10:04 100 MG Cholestyramine Resin 4 gm BID PO 07/10/24 22:00 07/15/24 10:05 4 GM Diphenoxylate HCl/ Atropine 2.5 mg Q12HP PRN PO 07/11/24 13:30 07/12/24 05:44 2.5 MG Midazolam HCl 50 ml @ 1 mls/hr Q24H IV 07/12/24 10:30 07/15/24 13:42 6 MLS/HR Fentanyl Citrate 250 ml @ 2.5 mls/hr Q24H IV 07/12/24 10:30 07/15/24 06:52 10 MLS/HR Phenylephrine HCl 250 ml @ 30 mls/hr Q8H20M IV 07/12/24 10:30 07/13/24 14:47 48.75 MLS/HR Vasopressin 20 units/Sodium Chloride 100 ml @ 9 mls/hr Q11H7M IV 07/12/24 17:30 07/15/24 11:33 9 MLS/HR Amino Acids 0 ml @ 0 mls/hr PER PHARMACY IV 07/12/24 17:30 Diagnostic Test (Pha) 1 strip Q6HR 07/13/24 00:00 07/15/24 11:38 1 STRIP Insulin Human Regular FOLLOW SLIDING SCALE Q6HR SC 07/13/24 00:00 07/15/24 11:43 4 UNITS Dextrose 50 ml UD IV 07/12/24 17:45 07/12/24 23:52 50 ML Sodium Chloride 10 ml QSHIFT@10,22 IV 07/12/24 22:00 07/15/24 10:04 10 ML Acetaminophen 650 mg Q6HP PRN SD 07/13/24 08:30 Trimethoprim/ Sulfamethoxazole 0 ml @ 0 mls/hr PER PHARMACY IV 07/13/24 08:30 Trimethoprim/ Sulfamethoxazole 20 ml/Dextrose 520 ml @ 346.667 mls/hr Q8HR IV 07/13/24 12:00 07/15/24 13:48 346.667 MLS/HR Norepinephrine Bitartrate 32 mg/ Sodium Chloride 250 ml @ 0.938 mls/ hr Q24H IV 07/13/24 21:00 07/15/24 10:07 4.688 MLS/HR Fat Emulsion Intravenous 150 ml/Sodium Chloride 60 meq/ Potassium Chloride 60 meq/ Calcium Gluconate 4.65 meq/ Magnesium Sulfate 8 meq/ Multivitamins 10 ml/Chromium/ Copper/Manganese/ Zinc 1 ml/Amino Acids/Dextrose 1,318 ml @ 55 mls/hr [id number] IV 07/14/24 22:00 07/15/24 21:59 07/14/24 22:18 55 MLS/HR Insulin Human (Reg)/Sodium Chloride 100 ml @ 0.5 mls/hr Q24H IV 07/14/24 11:15 UNV Diagnostic Test (Pha) 1 strip Q90MIN 07/14/24 12:00 UNV Dextrose 50 ml PRN PRN IV 07/14/24 11:15 UNV Insulin Glargine 15 units DAILY SC 07/15/24 10:00 UNV Sodium Bicarbonate 75 ml/ Dextrose 1,075 ml @ 100 mls/hr [id number] IV 07/14/24 14:30 Cancel Fat Emulsion Intravenous 150 ml/Sodium Chloride 80 meq/ Sodium Phosphate 20 meq/Potassium Chloride 60 meq/ Calcium Gluconate 4.65 meq/ Magnesium Sulfate 10 meq/ Multivitamins 10 ml/Chromium/ Copper/Manganese/ Zinc 1 ml/Amino Acids/Dextrose 1,428.5 ml @ 59 mls/hr [id number] IV 07/15/24 22:00 07/16/24 21:59 Laboratory Results Laboratory Tests 07/15/24 04:34 Chemistry Test 07/15/24 02:00 07/15/24 04:34 Magnesium Level 1.7 mg/dL (1.6-2.6) 1.7 mg/dL (1.6-2.6) Phosphorus Level 1.7 mg/dL (2.4-5.1) L 1.8 mg/dL (2.4-5.1) L Albumin 1.4 g/dL (3.2-4.8) L Calcium Level 6.8 mg/dL (8.7-10.4) L Total Protein 3.6 g/dL (5.7-8.2) L Coagulation Test 07/15/24 04:34 Prothrombin Time 12.0 sec (9.3-11.8) H Prothrombin Time INR 1.15 (0.9-1.15) Lipid panel Test 07/15/24 02:00 Cholesterol Level < 50.0 mg/dL (< 200) HDL Cholesterol < 5 mg/dL (40-59) L Triglycerides Level 321 mg/dL (< 150) H Cardiac Markers Test 07/15/24 04:34 B-Type Natriuretic Peptide 1122.32 pg/mL (0-100) LFT Test 07/15/24 04:34 Alanine Aminotransferase (ALT) < 9 U/L (7-40) Alkaline Phosphatase 95 U/L (46-116) Aspartate Amino Transferase (AST) 35 U/L (13-40) Total Bilirubin 0.2 mg/dL (0.2-1.0) HgA1c, TSH Test 07/15/24 02:00 Thyroid Stimulating Hormone (TSH) 3.58 uIU/mL (0.55-4.78) Urinalysis Test 07/07/24 09:40 Urine Color Light-yellow (Yellow) Urine Clarity Hazy (Clear) H Urine pH 6.0 (5.0-9.0) Urine Specific [place] 1.010 (1.001-1.035) Urine Protein Trace (Negative) H Urine Ketones Negative (Negative) Urine Blood Negative /uL (Negative) Urine Nitrite Negative (Negative) Urine Bilirubin Negative (Negative) Urine Urobilinogen Normal mg/dL (Negative) Urine Leukocyte Esterase 2+ /uL (Negative) Urine RBC 2 /hpf (0 - 4) Urine Microscopic WBC 6 /HPF (0-5) H Urine Squamous Epithelial Cells Few /hpf (<5) Urine Bacteria Few /hpf (None Seen) H Urine Hyaline Casts Few /lpf (0 - 2) Urine Yeast with Hyphae Present /hpf Urine Yeast (Budding) Occasional /hpf (None Urine Glucose Normal mg/dL (Normal) Blood Gas Results Test 07/15/24 05:35 07/15/24 08:42 Arterial Blood pH 7.569 (7.350-7.450) 7.536 (7.350-7.450) FiO2 % 40.0 30.0 Microbiology Microbiology Date/Time Source Procedure Growth Status 07/12/24 06:15 Sputum Gram Stain - Final Resulted 07/12/24 06:15 Sputum Respiratory Culture - Preliminary Resulted 07/09/24 17:00 Urine - [place] Urine Culture - Final Complete 07/08/24 04:15 Nose MRSA Screen - Final Complete 07/06/24 18:30 Stool Clostridium difficile Toxin Assay - Final Complete 07/06/24 18:21 Blood Blood Culture - Final NO GROWTH AFTER 5 DAYS OF INCUBATION. Complete Assessment/Plan Assessment/Plan Acute respiratory failure Sepsis and septic shock Severe anemia HIV positive Thrombocytopenia GI bleed UTI MAC Severe protein deficient malnutrition hypokalemia Plan: 07/14/2024: Repeat blood sugar was 153. The 1st blood sugar this morning was falls. Transfuse PRBC. Replace potassium. Platelet transfusion. Insulin drip if the sugar goes up for real. Recheck INR. Urine culture. Antibiotics. Vasopressors. Further plan per orders. Repeat labs chest x-ray and ABG. 07/15/2024: Discontinue D5 bicarb due to the increase BNP and congestion. Dose of Lasix. Platelet transfusion. Recheck BNP. We will try infusion. Blood transfusion if hemoglobin drops below seven. Continue monitoring vital signs and oxygenation vasopressors. Further plan orders. Total critical care time 45 minutes Plan discussed with: Other (Nursing) My Orders Orders - VI JACKSON MD Procedure Category Date Status Time Chest Portable XY 07/15/24 Resulted 06:00 Abg W/ Co-Ox RT 07/15/24 Logged 06:00 Date of Service: Jul 15, 2024 Billing Provider: VI JACKSON MD Common Visit Codes: [id number] CARE 30-74 MIN VI JACKSON MD Jul 15, 2024 15:30
[2024-07-15] MEDS: ALBUMIN 25% 100 ML IV SCH (15:55)
[2024-07-15 16:46] LABS: Potassium 2.8 mmol/L (3.5-5.1)
[2024-07-15 16:54] LABS: Magnesium 1.6 mg/dL (1.6-2.6); Phosphorus 2.2 mg/dL (2.4-5.1)
[2024-07-15] MEDS: MAGNESIUM SULFATE 1GM/100ML 100 ML IV SCH ×2 (17:11→20:00)
[2024-07-15] MEDS: POTASSIUM CHL 20MEQ/100ML 100 ML IV SCH (17:22)
[2024-07-15] MEDS ORDERED: AMIKACIN 0 ML IV SCH (18:30)
[2024-07-15] MEDS: AMIKACIN 1,000 MG in D5W 5% 100 ML IV SCH (19:25)
--- NOTE | 2024-07-15 19:39 | DVHPN2 ---
Progress Note - Dictate Date Seen: Jul 15, 2024 Medical Necessity Reason Pt with a Central, PICC or Fol: Yes The following are medically ne: Díaz Catheter Reason for díaz catheter: Strict I&O Subjective Patient seen and examined at bedside. Sedated, intubated on mechanical ventilator. Overnight events reviewed. vital signs Vital Sign Date Time Temp Pulse Resp B/P (MAP) Pulse Ox O2 Delivery O2 Flow Rate FiO2 07/15/24 19:15 98.1 86 24 134/87 (103) 208.6 122/71 (88) 07/15/24 19:00 98 07/15/24 18:03 30 07/15/24 18:00 Mechanical Ventilator+ Total Intake and Output 07/14/24 07/14/24 07/15/24 15:00 23:00 07:00 Intake Total 2116.751 ml 3278.171 ml 2169.504 ml Output Total 1110 ml 905 ml Balance 2116.751 ml 2168.171 ml 1264.504 ml medications Current Medications Medications Dose Ordered Sig/Era Route Start Time Stop Time Status Last Admin Dose Admin Pantoprazole Sodium 40 mg DAILY IV 07/07/24 10:00 07/15/24 10:04 40 MG Multivitamins 1 tab DAILY PO 07/07/24 10:00 07/15/24 10:06 1 TAB Acetaminophen 650 mg Q6HP PRN PO 07/06/24 20:15 07/12/24 22:29 650 MG Prochlorperazine Edisylate 5 mg Q4HPRN PRN IV 07/06/24 21:45 07/11/24 14:21 5 MG Nitroglycerin 0.4 mg Q5MINP PRN SL 07/06/24 21:45 Morphine Sulfate 2 mg Q30M PRN IV 07/06/24 21:45 Cancel Morphine Sulfate 2 mg Q30MIN PRN IV 07/07/24 06:45 Cancel Loperamide HCl 2 mg PRN PRN PO 07/08/24 08:45 Hold 07/11/24 03:15 2 MG Morphine Sulfate 2 mg Q30M PRN IV 07/08/24 09:15 07/08/24 15:51 2 MG Al Hydrox/Mg Hydrox/Simethicone 5 ml QID MT 07/08/24 18:00 07/15/24 18:17 5 ML Nystatin 5 ml QID MT 07/08/24 18:00 07/15/24 18:17 5 ML Lorazepam 0.5 mg Q6HP PRN IV 07/09/24 02:30 07/12/24 05:44 0.5 MG Rifampin 300 mg BID PO 07/09/24 22:00 UNV Ethambutol HCl 800 mg DAILY PO 07/09/24 15:45 07/15/24 10:05 800 MG Hydrocortisone Sodium Succinate 100 mg Q12HR IV 07/10/24 10:00 07/15/24 10:04 100 MG Cholestyramine Resin 4 gm BID PO 07/10/24 22:00 07/15/24 10:05 4 GM Diphenoxylate HCl/ Atropine 2.5 mg Q12HP PRN PO 07/11/24 13:30 07/12/24 05:44 2.5 MG Midazolam HCl 50 ml @ 1 mls/hr Q24H IV 07/12/24 10:30 07/15/24 13:42 6 MLS/HR Fentanyl Citrate 250 ml @ 2.5 mls/hr Q24H IV 07/12/24 10:30 07/15/24 06:52 10 MLS/HR Phenylephrine HCl 250 ml @ 30 mls/hr Q8H20M IV 07/12/24 10:30 07/13/24 14:47 48.75 MLS/HR Vasopressin 20 units/Sodium Chloride 100 ml @ 9 mls/hr Q11H7M IV 07/12/24 17:30 07/15/24 11:33 9 MLS/HR Amino Acids 0 ml @ 0 mls/hr PER PHARMACY IV 07/12/24 17:30 Diagnostic Test (Pha) 1 strip Q6HR 07/13/24 00:00 07/15/24 17:59 1 STRIP Insulin Human Regular FOLLOW SLIDING SCALE Q6HR SC 07/13/24 00:00 07/15/24 17:59 4 UNITS Dextrose 50 ml UD IV 07/12/24 17:45 07/12/24 23:52 50 ML Sodium Chloride 10 ml QSHIFT@10,22 IV 07/12/24 22:00 07/15/24 10:04 10 ML Acetaminophen 650 mg Q6HP PRN IA 07/13/24 08:30 Trimethoprim/ Sulfamethoxazole 0 ml @ 0 mls/hr PER PHARMACY IV 07/13/24 08:30 Trimethoprim/ Sulfamethoxazole 20 ml/Dextrose 520 ml @ 346.667 mls/hr Q8HR IV 07/13/24 12:00 07/15/24 13:48 346.667 MLS/HR Norepinephrine Bitartrate 32 mg/ Sodium Chloride 250 ml @ 0.938 mls/ hr Q24H IV 07/13/24 21:00 07/15/24 10:07 4.688 MLS/HR Fat Emulsion Intravenous 150 ml/Sodium Chloride 60 meq/ Potassium Chloride 60 meq/ Calcium Gluconate 4.65 meq/ Magnesium Sulfate 8 meq/ Multivitamins 10 ml/Chromium/ Copper/Manganese/ Zinc 1 ml/Amino Acids/Dextrose 1,318 ml @ 55 mls/hr [id number] IV 07/14/24 22:00 07/15/24 21:59 07/14/24 22:18 55 MLS/HR Insulin Human (Reg)/Sodium Chloride 100 ml @ 0.5 mls/hr Q24H IV 07/14/24 11:15 UNV Diagnostic Test (Pha) 1 strip Q90MIN 07/14/24 12:00 UNV Dextrose 50 ml PRN PRN IV 07/14/24 11:15 UNV Insulin Glargine 15 units DAILY SC 07/15/24 10:00 UNV Sodium Bicarbonate 75 ml/ Dextrose 1,075 ml @ 100 mls/hr [id number] IV 07/14/24 14:30 Cancel Fat Emulsion Intravenous 150 ml/Sodium Chloride 80 meq/ Sodium Phosphate 20 meq/Potassium Chloride 60 meq/ Calcium Gluconate 4.65 meq/ Magnesium Sulfate 10 meq/ Multivitamins 10 ml/Chromium/ Copper/Manganese/ Zinc 1 ml/Amino Acids/Dextrose 1,428.5 ml @ 59 mls/hr [id number] IV 07/15/24 22:00 07/16/24 21:59 Albumin Human 100 ml @ 100 mls/hr Q8H IV 07/15/24 15:45 07/16/24 08:44 07/15/24 15:55 100 MLS/HR Potassium Chloride 100 ml @ 50 mls/hr Q2H IV 07/15/24 17:00 07/16/24 00:59 07/15/24 18:41 50 MLS/HR Magnesium Sulfate/ Dextrose 100 ml @ 100 mls/hr Q1HR IV 07/15/24 20:00 07/15/24 21:59 Amikacin Sulfate 1000 mg/Dextrose 104 ml @ 104 mls/hr DAILY@2000 IV 07/15/24 20:00 07/15/24 19:25 104 MLS/HR Amikacin Sulfate 0 ml @ 0 mls/hr PER PHARMACY IV 07/15/24 18:30 Meropenem 50 ml @ 17 mls/hr Q8HR IV 07/15/24 22:00 objective Gen.: Patient lying in bed in medical ICU. Sedated, intubated on mechanical ventilator. Head: Normocephalic, atraumatic. Eyes: PERRLA. Ears: Normal external anatomy. Throat: Endotracheal tube and orogastric tube in place. Neck: Supple, trachea midline. Chest: Transmitted breath sounds bilaterally. Decreased air entry bilaterally. No wheezing. Bibasilar crackles. Cardiovascular: Positive S1, positive S2. Regular rate and rhythm. Abdomen: Positive bowel sounds in all 4 quadrants. Soft, nontender, nondistended. : Díaz in place. Normal external genitalia. Rectal: Deferred. Skin: Warm, dry. Intact. Extremities: 2+ radial pulses bilaterally. No lower extremity edema. Neuro: Sedated. laboratory and microbiology Laboratory Tests 07/15/24 16:17 07/15/24 04:34 Test 07/15/24 16:17 Range/Units Serum Glucose 168 H 74-106 mg/dL Assessment/Plan Impression: Acute hypoxic respiratory failure On mechanical ventilator Septic shock Pneumonia Anemia, rule out GI hemorrhage Human immunodeficiency virus disease Mycobacterium avium complex Events: Remains on vent support On AC mode; RR 20, VT 450, PEEP 5, FiO2 30% Improved FiO2 requirements Sedated on Versed, Fentanyl ABG reviewed, notable for alkalemia CXR reviewed, demonstrates mild patchy bibasilar pulmonary airspace disease and/or atelectasis On pressors for hemodynamic support Levophed 6 mcg/min, vasopressin 0.03 units/min Titrate to keep mean arterial pressure greater than 65 mmHg Patient was noted to have V-tach episodes. Anemia - hemoglobin of 7.7 g/dL Transfuse to keep hemoglobin above 7.0 g/dL Thrombocytopenia - monitor platelets Continue IV steroids Continue antibiotics. Sputum cultures grew Staph haemolyticus TPN for nutritional support Monitor renal function Monitor electrolytes. Supplement as necessary. K, mag, phos supplementation Monitor ins and outs. Labs and imaging reviewed. Rest of plan as noted below. Plan: s/p intubation on mechanical ventilator. On AC mode; RR 20, VT 450, PEEP 5, FiO2 30% Titrate FIO2 to keep O2 saturation above 90%. VAP bundle. Daily ABG and CXR while intubated Sedate for ventilator synchrony IV steroids Continue antibiotics. F/u cultures. Pressors as necessary for hemodynamic support Titrate to keep mean arterial pressure greater than 65 mmHg. Monitor hemoglobin Monitor renal function Monitor electrolytes. Supplement as necessary. Monitor ins and outs. Clinimix for nutritional support GI prophylaxis. DVT prophylaxis. Prognosis: Poor given patient's multiple co-morbidities. Condition: Critical Rest of plan per hospitalist and other consultants. A total of 35 minutes of critical care time was spent reviewing the patient record, examining the patient, making a diagnostic and therapeutic plan, discussing this plan with the medical personnel, following up on diagnostic studies and following the patient for clinical stability excluding any and all procedures. At least 50% of this time was spent in direct, [id number] contact. Thank you, BABAK Chaves, for allowing me to participate in this patient's care. Further recommendations will depend on the patient's clinical course. Please do not hesitate to contact me if you have any questions or concerns. This medical document was created using an electronic medical record system with [employer] dictation system. Although these documentations are being carefully reviewed, there may still be some phonetic and typographical changes. The errors are purely typographical, due to imperfection on the software program, and do not reflect any compromise in the patient's medical care. Dietary Evaluation Review Recommendations by RD: Increase Calorie Intake, Protein Supplementation Comments: Pt meets criteria for Severe Protein-Calorie Malnutrition in the setting of chronic illness based on severe weight loss (26.2kg/34.6% in 3 months) and moderate muscle wasting(triceps & shoulder). Nutrition Recommendation: 1. Liberalize to regular diet to minimize food restriction 2. Appetite stimulant daily 3. Ensure Enlive 240 ml TID (ordered per [facility]NS protocol) Expected Outcomes/Goals: To maintain/gain weight To meet at least 75% estimated needs Fu 3-5 days Interpretation of weight loss: >7.5% in 3 months Muscle Mass (Severe): Mod to Severe Depletion Protein Calorie Malnutrition: Severe Is there a minimum of two crit: Yes Plan discussed with: Other ([facility] Peña) Critical Care Time(min): 35 CC Plasma Assessment Blood Product Administration S: [id number] MAGALY LOPEZ MD Jul 15, 2024 19:39
--- NOTE | 2024-07-15 21:07 | DVHSR ---
APPROVED REPORT EXAM: LIMITED Two-dimensional and M-mode echocardiogram with Doppler and color Doppler. Blood Pressure: 122/70 mmHg INDICATION Reassess pericardial effusion RISK FACTORS Height: 5'5", Weight: 154 DIMENSIONS LVDd5.3 (3.8-5.7cm)LA (2D) (1.9-4.0cm)Aortic Root (2.0-3.7cm) LVDs4.1 (2.5-4.0cm)LA (MM) (1.9-4.0cm)Aortic Cusp Exc (1.5-2.0cm) EF (%) 45.0 (55-70%)Rt. Atrium (1.9-4.0cm)Asc. Aorta cm IVSd0.7 (0.7-1.1cm)RV (D) (1.8-2.4cm) PWd0.7 (0.7-1.1cm) Mitral Valve MitralMitral Stenosis E/A ratio0.02D MVAcm2 Other Information Technically limited study due to limited repeat for effusion. Conclusion LV DILATED MILD LV GLOBAL HYPOKINESIS LV EF IS 45% AND IS BORDERLINE REDUCED MODERATELY DILATED LEFT ATRIUM NORMAL VALVES NORMAL RV FUNCTION MILD GLOBAL PERICARDIAL EFFUSION,LESS THAN ONE CM IN WIDTH
[2024-07-15] MEDS: TPN PER PHARMACY IV NR (21:25)
[2024-07-15] MEDS: MEROPENEM 1GM IVPB 50 ML IV SCH (21:56)
--- NOTE | 2024-07-15 22:39 | DVHPN2 ---
Consult Progress Note Date Seen: Jul 14, 2024 Subjective Patient reports: Other (4 bowel movements overnight , díaz catheter in place and plateltes are at 20 . no blood in urine and on vasopressin and levofed and slowly coming down ) Objective vital signs Vital Sign Date Time Temp Pulse Resp B/P (MAP) Pulse Ox O2 Delivery O2 Flow Rate FiO2 07/15/24 22:00 23 98 Mechanical Ventilator+ 30 30 07/15/24 21:27 100/54 07/15/24 20:15 98.1 92 208.6 Total Intake and Output 07/14/24 07/14/24 07/15/24 15:00 23:00 07:00 Intake Total 2116.751 ml 3278.171 ml 2169.504 ml Output Total 1110 ml 905 ml Balance 2116.751 ml 2168.171 ml 1264.504 ml medications Current Medications Medications Dose Ordered Sig/Era Route Start Time Stop Time Status Last Admin Dose Admin Pantoprazole Sodium 40 mg DAILY IV 07/07/24 10:00 07/15/24 10:04 40 MG Multivitamins 1 tab DAILY PO 07/07/24 10:00 07/15/24 10:06 1 TAB Acetaminophen 650 mg Q6HP PRN PO 07/06/24 20:15 07/12/24 22:29 650 MG Prochlorperazine Edisylate 5 mg Q4HPRN PRN IV 07/06/24 21:45 07/11/24 14:21 5 MG Nitroglycerin 0.4 mg Q5MINP PRN SL 07/06/24 21:45 Morphine Sulfate 2 mg Q30M PRN IV 07/06/24 21:45 Cancel Morphine Sulfate 2 mg Q30MIN PRN IV 07/07/24 06:45 Cancel Loperamide HCl 2 mg PRN PRN PO 07/08/24 08:45 Hold 07/11/24 03:15 2 MG Morphine Sulfate 2 mg Q30M PRN IV 07/08/24 09:15 07/08/24 15:51 2 MG Al Hydrox/Mg Hydrox/Simethicone 5 ml QID MT 07/08/24 18:00 07/15/24 21:21 5 ML Nystatin 5 ml QID MT 07/08/24 18:00 07/15/24 21:18 5 ML Lorazepam 0.5 mg Q6HP PRN IV 07/09/24 02:30 07/12/24 05:44 0.5 MG Rifampin 300 mg BID PO 07/09/24 22:00 UNV Ethambutol HCl 800 mg DAILY PO 07/09/24 15:45 07/15/24 10:05 800 MG Hydrocortisone Sodium Succinate 100 mg Q12HR IV 07/10/24 10:00 07/15/24 21:19 100 MG Cholestyramine Resin 4 gm BID PO 07/10/24 22:00 07/15/24 10:05 4 GM Diphenoxylate HCl/ Atropine 2.5 mg Q12HP PRN PO 07/11/24 13:30 07/12/24 05:44 2.5 MG Midazolam HCl 50 ml @ 1 mls/hr Q24H IV 07/12/24 10:30 07/15/24 21:18 6 MLS/HR Fentanyl Citrate 250 ml @ 2.5 mls/hr Q24H IV 07/12/24 10:30 07/15/24 06:52 10 MLS/HR Phenylephrine HCl 250 ml @ 30 mls/hr Q8H20M IV 07/12/24 10:30 07/13/24 14:47 48.75 MLS/HR Vasopressin 20 units/Sodium Chloride 100 ml @ 9 mls/hr Q11H7M IV 07/12/24 17:30 07/15/24 21:27 9 MLS/HR Amino Acids 0 ml @ 0 mls/hr PER PHARMACY IV 07/12/24 17:30 Diagnostic Test (Pha) 1 strip Q6HR 07/13/24 00:00 07/15/24 17:59 1 STRIP Insulin Human Regular FOLLOW SLIDING SCALE Q6HR SC 07/13/24 00:00 07/15/24 17:59 4 UNITS Dextrose 50 ml UD IV 07/12/24 17:45 07/12/24 23:52 50 ML Sodium Chloride 10 ml QSHIFT@10,22 IV 07/12/24 22:00 07/15/24 21:21 10 ML Acetaminophen 650 mg Q6HP PRN DC 07/13/24 08:30 Trimethoprim/ Sulfamethoxazole 0 ml @ 0 mls/hr PER PHARMACY IV 07/13/24 08:30 Trimethoprim/ Sulfamethoxazole 20 ml/Dextrose 520 ml @ 346.667 mls/hr Q8HR IV 07/13/24 12:00 07/15/24 21:18 346.667 MLS/HR Norepinephrine Bitartrate 32 mg/ Sodium Chloride 250 ml @ 0.938 mls/ hr Q24H IV 07/13/24 21:00 07/15/24 10:07 4.688 MLS/HR Insulin Human (Reg)/Sodium Chloride 100 ml @ 0.5 mls/hr Q24H IV 07/14/24 11:15 UNV Diagnostic Test (Pha) 1 strip Q90MIN 07/14/24 12:00 UNV Dextrose 50 ml PRN PRN IV 07/14/24 11:15 UNV Insulin Glargine 15 units DAILY SC 07/15/24 10:00 UNV Sodium Bicarbonate 75 ml/ Dextrose 1,075 ml @ 100 mls/hr [id number] IV 07/14/24 14:30 Cancel Fat Emulsion Intravenous 150 ml/Sodium Chloride 80 meq/ Sodium Phosphate 20 meq/Potassium Chloride 60 meq/ Calcium Gluconate 4.65 meq/ Magnesium Sulfate 10 meq/ Multivitamins 10 ml/Chromium/ Copper/Manganese/ Zinc 1 ml/Amino Acids/Dextrose 1,428.5 ml @ 59 mls/hr [id number] IV 07/15/24 22:00 07/16/24 21:59 07/15/24 21:25 59 MLS/HR Albumin Human 100 ml @ 100 mls/hr Q8H IV 07/15/24 15:45 07/16/24 08:44 07/15/24 15:55 100 MLS/HR Potassium Chloride 100 ml @ 50 mls/hr Q2H IV 07/15/24 17:00 07/16/24 00:59 07/15/24 20:43 50 MLS/HR Amikacin Sulfate 1000 mg/Dextrose 104 ml @ 104 mls/hr DAILY@2000 IV 07/15/24 20:00 07/15/24 19:25 104 MLS/HR Amikacin Sulfate 0 ml @ 0 mls/hr PER PHARMACY IV 07/15/24 18:30 Meropenem 50 ml @ 17 mls/hr Q8HR IV 07/15/24 22:00 07/15/24 21:56 17 MLS/HR Physical Exam: General: Lethargic, agitated, pale appearance. Neck: Supple. No masses. HEENT: PERRL. Normal lids and conjunctiva. Moist mucous membranes. Reports headaches. Heart: Tachycardic at 125 bpm, regular rhythm. No murmur. No lower extremity edema. Lungs: Normal respiratory effort. Clear to auscultation bilaterally. No wheezes. No crackles. Abdomen: Mildly distended. Non-tender. Hepatomegaly and splenomegaly palpable up to 5 cm below costal margin. No masses or abdominal hernia. Msk: No digital cyanosis. Normal strength and tone in all 4 limbs. Skin: Pale. Warm and dry, no rashes. Neuro: Alert but lethargic. No facial droop or slurred speech. Extra-ocular movements intact. Sensation intact to soft touch in all 4 limbs. Psych: Agitated mood. Full affect. Oriented to person, place, time, and situation. 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 female with a past medical history of HIV/AIDS ( 2023: Absolute CD 4 [place] 22, % CD 4 Pos. Lymph. 3.1), untreated MAC, who presents with flu-like symptoms for the last 7 days, including green, watery diarrhea for the last 4 days. Her diarrhea is chronic and has acutely worsened to the point where she is requiring electrolyte repletion. She was diagnosed with MAC infection on July 31 and was started on ethambutol, Bactrim, and Biktarvy but has been non-compliant with her medications. Labs reveal severe anemia (Hgb 7.5), hyponatremia (Na 130), and urine drug screen positive for cannabinoids and amphetamines(in the past). CT abdomen/pelvis shows hepatosplenomegaly and numerous clusters of enlarged lymph nodes around the mesenteric root measuring up to 1.7 cm, as well as prominent lymph nodes in the pelvis and groin. From her last hospitalization, the following were positive. She was transferred to [facility] where she was diagnosed with NTM pneumonia and discharged on a regimen she has been compliant with Now presents 2 weeks later with abdominal pain, diarrhea, SOB, and hypotension 6/2: remains clinically ill , having positive stool blood , ongoing systemic mac infection is likely etiology . tachycardic 6/: continues to have worsening diarrhea , expect antibiotics to take several days to be in effect 6: patient was started on Lomatil by GI and would no recommend this as patients diarrhea is largely infectious in etiology and slowing down diarrhea would worsen infection 6: patient was intubated due to airway protection. chest xray shows multifocal airspace disease , altered mental status is likely related to GI loses and sepsis 6/6:patient occasionally gets low potassium and creatinine is slightly elevated at 4.5 6/: presser needs likely related to GI losses and improvement of MAC infection Plan: - continue empirically meropenem to cover organisms for patients infectious diarrhea - monitor renal function - if patient continues to decline would stop ciprofloxacin and switch to amicasin - Hold Lomatil - continue to keep maps above 65 and fluid resuscitation - follow up on pending stool studies - continue close ICU support and fluid resuscitation and electrolyte replacement - Provide supportive care: - Transfuse PRBCs if hemoglobin <7 g/dL. - Pain management for abdominal pain. - Antipyretics for fevers. - Further diagnostics: - Obtain Quantiferon-TB Gold test.--> negative - Send stool cultures, ova and parasites, and C. difficile testing. - Screen for CMV antibodies due to diarrhea.--> positive for exposure, would check CMV DNA levels. - Check Cryptococcus antigen.--> negative - Obtain AFB cultures from blood, stool, and sputum. - Screen for toxoplasma antigen.--> negative - Screen for syphilis, gonorrhea, chlamydia.-->negative - Check hepatitis B core IgM antibody.-->negative - Monitor patient closely. - Consider starting prednisone after ruling out cryptococcal infection. Antibiotics: - continue Biktarvy, ciprofloxacin, ethambutol. will consider starting Amikacin for broader MAC therapy or prednizone - recommend EKG in next 24hrs to see if patients QTC remains prolonged - continue Bactrim PJP prophylaxis so long as patient can tolerate - recommended expanded viral and parasitic enteric pcr panel send out. Isolation Precautions: Standard Authorized and Performed by: beverly guzman Total critical care time: Approximately 76 minutes Due to a high probability of clinically significant, life threatening deterioration, the patient required my highest level of preparedness to intervene emergently and I personally spent this critical care time directly and personally managing the patient. This critical care time included obtaining a history; examining the patient; pulse oximetry; ordering and review of studies; arranging urgent treatment with development of a management plan; evaluation of patient's response to treatment; frequent reassessment; and, discussions with other providers. This critical care time was performed to assess and manage the high probability of imminent, life-threatening deterioration that could result in multi-organ failure. It was exclusive of separately billable procedures and treating other patients and teaching time. Plan discussed with: Other Dietary Evaluation Review Recommendations by RD: Increase Calorie Intake, Protein Supplementation Comments: Pt meets criteria for Severe Protein-Calorie Malnutrition in the setting of chronic illness based on severe weight loss (26.2kg/34.6% in 3 months) and moderate muscle wasting(triceps & shoulder). Nutrition Recommendation: 1. Liberalize to regular diet to minimize food restriction 2. Appetite stimulant daily 3. Ensure Enlive 240 ml TID (ordered per ONS protocol) Expected Outcomes/Goals: To maintain/gain weight To meet at least 75% estimated needs Fu 3-5 days Interpretation of weight loss: >7.5% in 3 months Muscle Mass (Severe): Mod to Severe Depletion Protein Calorie Malnutrition: Severe Is there a minimum of two crit: Yes CC Plasma Assessment Blood Product Administration S: [id number] BEVERLY GUZMAN MD Jul 15, 2024 22:38
--- NOTE | 2024-07-15 22:44 | DVHPN2 ---
Consult Progress Note Date Seen: Jul 15, 2024 Subjective Patient reports: Other (peristently off catheters ) Objective vital signs Vital Sign Date Time Temp Pulse Resp B/P (MAP) Pulse Ox O2 Delivery O2 Flow Rate FiO2 07/15/24 22:00 23 98 Mechanical Ventilator+ 30 30 07/15/24 21:27 100/54 07/15/24 20:15 98.1 92 208.6 Total Intake and Output 07/14/24 07/14/24 07/15/24 15:00 23:00 07:00 Intake Total 2116.751 ml 3278.171 ml 2169.504 ml Output Total 1110 ml 905 ml Balance 2116.751 ml 2168.171 ml 1264.504 ml medications Current Medications Medications Dose Ordered Sig/Era Route Start Time Stop Time Status Last Admin Dose Admin Pantoprazole Sodium 40 mg DAILY IV 07/07/24 10:00 07/15/24 10:04 40 MG Multivitamins 1 tab DAILY PO 07/07/24 10:00 07/15/24 10:06 1 TAB Acetaminophen 650 mg Q6HP PRN PO 07/06/24 20:15 07/12/24 22:29 650 MG Prochlorperazine Edisylate 5 mg Q4HPRN PRN IV 07/06/24 21:45 07/11/24 14:21 5 MG Nitroglycerin 0.4 mg Q5MINP PRN SL 07/06/24 21:45 Morphine Sulfate 2 mg Q30M PRN IV 07/06/24 21:45 Cancel Morphine Sulfate 2 mg Q30MIN PRN IV 07/07/24 06:45 Cancel Loperamide HCl 2 mg PRN PRN PO 07/08/24 08:45 Hold 07/11/24 03:15 2 MG Morphine Sulfate 2 mg Q30M PRN IV 07/08/24 09:15 07/08/24 15:51 2 MG Al Hydrox/Mg Hydrox/Simethicone 5 ml QID MT 07/08/24 18:00 07/15/24 21:21 5 ML Nystatin 5 ml QID MT 07/08/24 18:00 07/15/24 21:18 5 ML Lorazepam 0.5 mg Q6HP PRN IV 07/09/24 02:30 07/12/24 05:44 0.5 MG Rifampin 300 mg BID PO 07/09/24 22:00 UNV Ethambutol HCl 800 mg DAILY PO 07/09/24 15:45 07/15/24 10:05 800 MG Hydrocortisone Sodium Succinate 100 mg Q12HR IV 07/10/24 10:00 07/15/24 21:19 100 MG Cholestyramine Resin 4 gm BID PO 07/10/24 22:00 07/15/24 10:05 4 GM Diphenoxylate HCl/ Atropine 2.5 mg Q12HP PRN PO 07/11/24 13:30 07/12/24 05:44 2.5 MG Midazolam HCl 50 ml @ 1 mls/hr Q24H IV 07/12/24 10:30 07/15/24 21:18 6 MLS/HR Fentanyl Citrate 250 ml @ 2.5 mls/hr Q24H IV 07/12/24 10:30 07/15/24 06:52 10 MLS/HR Phenylephrine HCl 250 ml @ 30 mls/hr Q8H20M IV 07/12/24 10:30 07/13/24 14:47 48.75 MLS/HR Vasopressin 20 units/Sodium Chloride 100 ml @ 9 mls/hr Q11H7M IV 07/12/24 17:30 07/15/24 21:27 9 MLS/HR Amino Acids 0 ml @ 0 mls/hr PER PHARMACY IV 07/12/24 17:30 Diagnostic Test (Pha) 1 strip Q6HR 07/13/24 00:00 07/15/24 17:59 1 STRIP Insulin Human Regular FOLLOW SLIDING SCALE Q6HR SC 07/13/24 00:00 07/15/24 17:59 4 UNITS Dextrose 50 ml UD IV 07/12/24 17:45 07/12/24 23:52 50 ML Sodium Chloride 10 ml QSHIFT@10,22 IV 07/12/24 22:00 07/15/24 21:21 10 ML Acetaminophen 650 mg Q6HP PRN OK 07/13/24 08:30 Trimethoprim/ Sulfamethoxazole 0 ml @ 0 mls/hr PER PHARMACY IV 07/13/24 08:30 Trimethoprim/ Sulfamethoxazole 20 ml/Dextrose 520 ml @ 346.667 mls/hr Q8HR IV 07/13/24 12:00 07/15/24 21:18 346.667 MLS/HR Norepinephrine Bitartrate 32 mg/ Sodium Chloride 250 ml @ 0.938 mls/ hr Q24H IV 07/13/24 21:00 07/15/24 10:07 4.688 MLS/HR Insulin Human (Reg)/Sodium Chloride 100 ml @ 0.5 mls/hr Q24H IV 07/14/24 11:15 UNV Diagnostic Test (Pha) 1 strip Q90MIN 07/14/24 12:00 UNV Dextrose 50 ml PRN PRN IV 07/14/24 11:15 UNV Insulin Glargine 15 units DAILY SC 07/15/24 10:00 UNV Sodium Bicarbonate 75 ml/ Dextrose 1,075 ml @ 100 mls/hr [id number] IV 07/14/24 14:30 Cancel Fat Emulsion Intravenous 150 ml/Sodium Chloride 80 meq/ Sodium Phosphate 20 meq/Potassium Chloride 60 meq/ Calcium Gluconate 4.65 meq/ Magnesium Sulfate 10 meq/ Multivitamins 10 ml/Chromium/ Copper/Manganese/ Zinc 1 ml/Amino Acids/Dextrose 1,428.5 ml @ 59 mls/hr [id number] IV 07/15/24 22:00 07/16/24 21:59 07/15/24 21:25 59 MLS/HR Albumin Human 100 ml @ 100 mls/hr Q8H IV 07/15/24 15:45 07/16/24 08:44 07/15/24 15:55 100 MLS/HR Potassium Chloride 100 ml @ 50 mls/hr Q2H IV 07/15/24 17:00 07/16/24 00:59 07/15/24 20:43 50 MLS/HR Amikacin Sulfate 1000 mg/Dextrose 104 ml @ 104 mls/hr DAILY@2000 IV 07/15/24 20:00 07/15/24 19:25 104 MLS/HR Amikacin Sulfate 0 ml @ 0 mls/hr PER PHARMACY IV 07/15/24 18:30 Meropenem 50 ml @ 17 mls/hr Q8HR IV 07/15/24 22:00 07/15/24 21:56 17 MLS/HR Physical Exam: General: Lethargic, agitated, pale appearance. Neck: Supple. No masses. HEENT: PERRL. Normal lids and conjunctiva. Moist mucous membranes. Reports headaches. Heart: Tachycardic at 125 bpm, regular rhythm. No murmur. No lower extremity edema. Lungs: Normal respiratory effort. Clear to auscultation bilaterally. No wheezes. No crackles. Abdomen: Mildly distended. Non-tender. Hepatomegaly and splenomegaly palpable up to 5 cm below costal margin. No masses or abdominal hernia. Msk: No digital cyanosis. Normal strength and tone in all 4 limbs. Skin: Pale. Warm and dry, no rashes. Neuro: Alert but lethargic. No facial droop or slurred speech. Extra-ocular movements intact. Sensation intact to soft touch in all 4 limbs. Psych: Agitated mood. Full affect. Oriented to person, place, time, and situation. 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 female with a past medical history of HIV/AIDS ( 2023: Absolute CD 4 [place] 22, % CD 4 Pos. Lymph. 3.1), untreated MAC, who presents with flu-like symptoms for the last 7 days, including green, watery diarrhea for the last 4 days. Her diarrhea is chronic and has acutely worsened to the point where she is requiring electrolyte repletion. She was diagnosed with MAC infection on July 31 and was started on ethambutol, Bactrim, and Biktarvy but has been non-compliant with her medications. Labs reveal severe anemia (Hgb 7.5), hyponatremia (Na 130), and urine drug screen positive for cannabinoids and amphetamines(in the past). CT abdomen/pelvis shows hepatosplenomegaly and numerous clusters of enlarged lymph nodes around the mesenteric root measuring up to 1.7 cm, as well as prominent lymph nodes in the pelvis and groin. From her last hospitalization, the following were positive. [place] where she was diagnosed with NTM pneumonia and discharged on a regimen she has been compliant with Now presents 2 weeks later with abdominal pain, diarrhea, SOB, and hypotension 6/: remains clinically ill , having positive stool blood , ongoing systemic mac infection is likely etiology . tachycardic 6: continues to have worsening diarrhea , expect antibiotics to take several days to be in effect 07/11: patient was started on Lomatil by GI and would no recommend this as patients diarrhea is largely infectious in etiology and slowing down diarrhea would worsen infection 07/12: patient was intubated due to airway protection. chest xray shows multifocal airspace disease , altered mental status is likely related to GI loses and sepsis 07/13:patient occasionally gets low potassium and creatinine is slightly elevated at 4.5 6: presser needs likely related to GI losses and improvement of MAC infection 07/15: whitecount 2.1 . chest xray shows patchy bibasilar airspace disease . diarrhea is improving but pressers are slow to come off Plan: - stop ciprofloxacin - start Amikacin - continue meropenem - would consider metholpred in 48 hours - hold bictary in setting of severe septic picture and would not want to exacerbate patients immunoconcentration - monitor renal function - continue to keep maps above 65 and fluid resuscitation - follow up on pending stool studies - continue close ICU support and fluid resuscitation and electrolyte replacement - Provide supportive care: - Transfuse PRBCs if hemoglobin <7 g/dL. - Pain management for abdominal pain. - Antipyretics for fevers. - Further diagnostics: - Obtain Quantiferon-TB Gold test.--> negative - Send stool cultures, ova and parasites, and C. difficile testing. - Screen for CMV antibodies due to diarrhea.--> positive for exposure, would check CMV DNA levels. - Check Cryptococcus antigen.--> negative - Obtain AFB cultures from blood, stool, and sputum. - Screen for toxoplasma antigen.--> negative - Screen for syphilis, gonorrhea, chlamydia.-->negative - Check hepatitis B core IgM antibody.-->negative - Monitor patient closely. - Consider starting prednisone after ruling out cryptococcal infection. Antibiotics: - continue ciprofloxacin, ethambutol. will consider starting Amikacin for broader MAC therapy or prednizone - recommend EKG in next 24hrs to see if patients QTC remains prolonged - continue Bactrim PJP prophylaxis so long as patient can tolerate - recommended expanded viral and parasitic enteric pcr panel send out. Isolation Precautions: Standard Authorized and Performed by: beverly guzman Total critical care time: Approximately 76 minutes Due to a high probability of clinically significant, life threatening deterioration, the patient required my highest level of preparedness to intervene emergently and I personally spent this critical care time directly and personally managing the patient. This critical care time included obtaining a history; examining the patient; pulse oximetry; ordering and review of studies; arranging urgent treatment with development of a management plan; evaluation of patient's response to treatment; frequent reassessment; and, discussions with other providers. This critical care time was performed to assess and manage the high probability of imminent, life-threatening deterioration that could result in multi-organ failure. It was exclusive of separately billable procedures and treating other patients and teaching time. Plan discussed with: Other Dietary Evaluation Review Recommendations by RD: Increase Calorie Intake, Protein Supplementation Comments: Pt meets criteria for Severe Protein-Calorie Malnutrition in the setting of chronic illness based on severe weight loss (26.2kg/34.6% in 3 months) and moderate muscle wasting(triceps & shoulder). Nutrition Recommendation: 1. Liberalize to regular diet to minimize food restriction 2. Appetite stimulant daily 3. Ensure Enlive 240 ml TID (ordered per ONS protocol) Expected Outcomes/Goals: To maintain/gain weight To meet at least 75% estimated needs Fu 3-5 days Interpretation of weight loss: >7.5% in 3 months Muscle Mass (Severe): Mod to Severe Depletion Protein Calorie Malnutrition: Severe Is there a minimum of two crit: Yes CC Plasma Assessment Blood Product Administration S: [id number] BEVERLY GUZMAN MD Jul 15, 2024 22:44
--- NOTE | 2024-07-15 23:48 | DVHINCON2 ---
Date Seen: Jul 15, 2024 Referring Physician BABAK Vick Reason for Consultation Cardiac arrhythmias History of Present Illness This is a 28-year-old female with a past medical history of HIV, mycobacterium avium complex (MAC), thyroid disease, and tobacco use who presents to emergency room with a complaint of generalized weakness. At the time of assessment, the patient is chemically sedated and mechanically ventilated. History of present illness obtained from medical records and patient's bedside RN. According to records, the patient initially presented with generalized weakness as well as dark tarry stools. During this hospital stay, the the patient's respiratory status became compromised and she was subsequently intubated for airway protection. Cardiology has been consulted at this time for cardiac arrhythmias. Initial twelve lead electrocardiogram done on day of admission revealed sinus tachycardia with prolonged QTc interval. After reviewing radiographer cardiac catheterization overnight, the patient has been having frequent PVCs and has had multiple episodes of nonsustained V-tach. CT ABD PEL shows splenomegaly measuring 20 cm. Questionable pericaval and periaortic adenopathy this is difficult to visualize since there is no oral or IV contrast. Consider repeat study with oral and 90 contrast if possible. IUD in the uterus. Gallbladder has been surgically removed. Past Medical History Past medical history reviewed. No other significant than mentioned above. Past Surgical History Cholecystectomy Tonsillectomy Family History: Patient reports no known family medical history. Allergies: Coded Allergies: NO KNOWN ALLERGIES (Unverified , 10/22/20) Home Meds Active Scripts Sulfamethoxazole W/Trimethopri (Bactrim Ds Tablet) 1 Tab Tb, 2 TAB PO Q8HR for 21 Days, #126 TAB Prov:MAXIM NIELSEN PAC 07/08/23 Benzonatate (Benzonatate) 100 Mg Cap, 1-2 CAP PO Q4HR, #60 CAP Prov:MAXIM NIELSEN PAC 07/08/23 Permethrin (Elimite) 5 % Cre, 1 APPLIC TOP ONCE, #60 GRAMS 1 Refill Prov:TONY NAVARRO 05/13/22 Cephalexin ( Keflex 500) 500 Mg Cap, 1 CAP PO QID, #40 CAP Prov:TONY NAVARRO 05/13/22 Sulfamethoxazole W/Trimethopri (Bactrim Ds Tablet) 1 Tab Tb, 1 TAB PO BID for 10 Days, #20 TAB Prov:TONY NAVARRO 05/13/22 Ibuprofen (Ibuprofen) 800 Mg Tab, 1 TAB PO TID, #30 TAB Prov:TONY NAVARRO 05/13/22 Clindamycin Hcl (Clindamycin Hcl) 300 Mg Cap, 1 CAP PO TID for 10 Days, #21 CAP 0 Refills Prov:AMAYA SÁNCHEZ 11/19/21 Reported Medications Vknluahwmev-Cxjutdgwglaos-Zyst (Biktarvy 50-200-25 mg) 1 Tab Tab, 1 TAB PO, TAB 07/11/24 Levothyroxine Sodium (SYNTHROID) 100 Mcg/5 Ml Ij, 100 MCG IV, INJ 07/11/24 Midodrine HCl (Midodrine HCl) 10 Mg Tab, 10 MG GT, TAB 07/11/24 Azithromycin (Azithromycin) 500 Mg Tab, 500 MG PO DAILY 07/11/24 Sulfamethoxazole-Trimethoprim (Bactrim) 1 Tab Tab, 1 TAB PO DAILY, MG 07/11/24 Ethambutol Hcl (Ethambutol Hcl) 400 Mg Tab, 1200 MG PO DAILY, MG 07/11/24 Vit W/ Ferrous Fumara ( One Daily) Daily Tab, 1 TAB PO DAILY, #90 TAB 3 Refills 10/22/20 Emtricitabine-Tenofovir Disopr (Truvada) Tab, 1 TAB PO DAILY, #30 TAB 2 Refills 10/22/20 Current Medications Current Medications Medications (Trade) Dose Ordered Sig/Era Route PRN Reason Start Time Stop Time Status Last Admin Fat Emulsion Intravenous 150 ml/Sodium Chloride 60 meq/ Potassium Chloride 60 meq/ Calcium Gluconate 4.65 meq/ Magnesium Sulfate 8 meq/ Multivitamins 10 ml/Chromium/ Copper/Manganese/ Zinc 1 ml/Amino Acids/Dextrose 1,318 ml @ 55 mls/hr [id number] IV 07/14/24 22:00 07/15/24 21:59 07/14/24 22:18 Insulin Glargine (Lantus) 15 units DAILY SC 07/15/24 10:00 UNV Fat Emulsion Intravenous 150 ml/Sodium Chloride 80 meq/ Sodium Phosphate 20 meq/Potassium Chloride 60 meq/ Calcium Gluconate 4.65 meq/ Magnesium Sulfate 10 meq/ Multivitamins 10 ml/Chromium/ Copper/Manganese/ Zinc 1 ml/Amino Acids/Dextrose 1,428.5 ml @ 59 mls/hr [id number] IV 07/15/24 22:00 07/16/24 21:59 Albumin Human 100 ml @ 100 mls/hr Q8H IV 07/15/24 15:45 07/16/24 08:44 07/15/24 15:55 Review of Systems Constitutional: Generalized weakness Ears, Nose, & Throat: No symptom reported Eyes: No symptom reported Neurological: No symptoms reported Pulmonary/Respiratory: No symptoms reported Cardiovascular: No symptom reported Gastrointestinal: No symptom reported Genitourinary: No symptom reported Musculoskeletal: No symptom reported Skin: No symptom reported Psychiatric: No symptom reported Endocrine: No symptom reported Hematologic/Lymphatic: No symptom reported Vital Signs Vital Signs Date Time Temp Pulse Resp B/P (MAP) Pulse Ox O2 Delivery O2 Flow Rate FiO2 07/15/24 15:30 98.1 97 24 112/68 (83) 97 208.6 120/63 (82) 07/15/24 15:17 30 07/15/24 14:00 Mechanical Ventilator+ Physical Exam GENERAL: Ill appearing, intubated on ventilator. EYES: PERRL, EOMI. Anicteric. HENT: Moist mucous membranes. LUNGS: Decreased breath sounds. CARDIOVASCULAR: Regular rate and rhythm. ABDOMEN: Soft, nontender and nondistended. EXTREMITIES: 4+ BLE pitting edema. SKIN: Warm, dry. Labs/Diagnostic Data Labs Test 07/15/24 11:37 07/15/24 08:42 07/15/24 05:35 07/15/24 04:34 Range/Units POC Glucose 188 H 70-106 mg/dl Blood Gas Specimen Type Arterial Blood Gas Sample Site Arterial line Blood Gas Patient Temperature 37.0 Arterial Blood Date Drawn [id number] Arterial Blood pH 7.536 H 7.350-7.450 Arterial Blood Partial Pressure CO2 34.5 32.0-45.0 mmHg Arterial Blood Partial Pressure O2 99.3 83.0-108.0 mmHg Arterial Blood HCO3 28.6 H 21.0-28.0 mmol/L Arterial Blood Oxygen Saturation 97.3 94.0-98.0 % Arterial Blood Base Excess 5.7 H -2.0-3.0 mmol/L Arterial Blood Oxyhemoglobin 95.5 94.0-98.0 % Arterial Blood Carboxyhemoglobin 1.5 0.5-1.5 % Arterial Blood Methemoglobin 0.3 0.0-1.5 % Jhonathan Test N/a Blood Gas Total Hemoglobin 8.10 L 12.0-16.0 g/dL Blood Gas Set Respiration Rate 20.0 Blood Gas Modality Vent - ac FiO2 % 30.0 Blood Gas Tidal Volume 450.0 Blood Gas PEEP or CPAP 5.0 Blood Gas Critical Value Read Back yes Blood Gas Notified Whom copy supervisor jame Blood Gas Notified Time [id number] Blood Gas Notified By facility engineer jaye White Blood Count 3.6 #L 4.4-10.8 10^3/uL Red Blood Count 2.61 L 4.0-5.20 10^6/uL Hemoglobin 7.7 L 12.2-16.2 g/dL Hematocrit 22.9 L 36.0-46.0 % Mean Corpuscular Volume 87.5 80.0-100.0 fL Mean Corpuscular Hemoglobin 29.6 28.0-32.0 pg Mean Corpuscular Hemoglobin Concent 33.8 32.0-36.0 g/dL Red Cell Distribution Width 17.7 H 11.8-14.3 % Platelet Count 9 #*L 140-450 10^3/uL Mean Platelet Volume 10.9 H 6.9-10.8 fL Neutrophils (%) (Auto) 37.0-80.0 % Lymphocytes (%) (Auto) 10.0-50.0 % Monocytes (%) (Auto) 0.0-12.0 % Basophils (%) (Auto) 0.0-2.0 % Neutrophils # (Auto) 1.6-8.6 10 ^3/uL Lymphocytes # (Auto) 0.4-5.4 10 ^3/uL Monocytes # (Auto) 0-1.3 10 ^3/uL Differential Total Cells Counted 100.0 100 Neutrophils % (Manual) 54 37.0-80.0 Band Neutrophils % (Manual) 26 Lymphocytes % (Manual) 20 10.0-50.0 Monocytes % (Manual) 0 0-12 Eosinophils % (Manual) 0 0-7 Basophils % (Manual) 0 0.0-2.0 Metamyelocytes % (manual) 0 Myelocytes % (Manual) 0 Promyelocytes % (Manual) 0 Blast Cells % (Manual) 0 Reactive Lymphocytes 0 Platelet Estimate Markedly decreased Anisocytosis (manual) Slight Prothrombin Time 12.0 H 9.3-11.8 sec Prothrombin Time INR 1.15 0.9-1.15 Sodium Level 129 L 136-145 mmol/L Potassium Level 4.3 3.5-5.1 mmol/L Chloride Level 92 L 98-107 mmol/L Carbon Dioxide Level 28 20-31 mmol/L Anion Gap 9 5-15 Blood Urea Nitrogen 18 9-23 mg/dL Creatinine 0.45 L 0.550-1.02 mg/dL Glomerular Filtration Rate Calc 133 >90 mL/min BUN/Creatinine Ratio 40.0 H 10.0-20.0 Serum Glucose 560 *H 74-106 mg/dL Calcium Level 6.8 L 8.7-10.4 mg/dL Phosphorus Level 1.8 L 2.4-5.1 mg/dL Magnesium Level 1.7 1.6-2.6 mg/dL Total Bilirubin 0.2 0.2-1.0 mg/dL Aspartate Amino Transferase (AST) 35 13-40 U/L Alanine Aminotransferase (ALT) < 9 7-40 U/L Alkaline Phosphatase 95 46-116 U/L B-Type Natriuretic Peptide 1122.32 0-100 pg/mL Total Protein 3.6 L 5.7-8.2 g/dL Albumin 1.4 L 3.2-4.8 g/dL Test 07/15/24 02:00 07/13/24 20:07 07/12/24 21:47 07/12/24 16:10 Range/Units Triglycerides Level 321 H < 150 mg/dL Cholesterol Level < 50.0 < 200 mg/dL LDL Cholesterol 7 < 100 mg/dL HDL Cholesterol < 5 L 40-59 mg/dL Thyroid Stimulating Hormone (TSH) 3.58 0.55-4.78 uIU/mL Nucleated Red Blood Cells 3.0 % Blood Gas Spontaneous Rate 26 Activated Partial Thromboplast Time 47.8 H 24.5-34.5 SEC Test 07/12/24 10:18 07/12/24 03:57 07/10/24 08:08 07/08/24 22:00 Range/Units Blood Gas Liter Flow 5.00 Eosinophils (%) (Auto) 0.2 0.0-7.0 % Eosinophils # (Auto) 0 0-0.8 10 ^3/uL Basophils # (Auto) 0 0-0.2 10 ^3/uL Venous Blood pH 7.332 7.320-7.430 Venous Blood pCO2 at Patient Temp 25.6 L 38.0-54.0 mmHg Venous Blood pO2 at Patient Temp < 36.5 23.0-48.0 mmHg Venous Blood HCO3 13.3 L 22.0-29.0 mmol/L Venous Blood Base Excess -10.7 L -2.0-3.0 mmol/L Stool Occult Blood Positive Negative Stool Occult Blood Sample #3 Negative Test 07/08/24 08:34 07/08/24 04:20 07/07/24 09:40 07/06/24 21:10 Range/Units Erythrocyte Sedimentation Rate 9 0-20 mm/hr C-Reactive Protein High Sensitivity 8.58 H <1.0 mg/dL Urine Color Light-yellow Yellow Urine Clarity Hazy H Clear Urine pH 6.0 5.0-9.0 Urine Specific [place] 1.010 1.001-1.035 Urine Protein Trace H Negative Urine Ketones Negative Negative Urine Blood Negative Negative /uL Urine Nitrite Negative Negative Urine Bilirubin Negative Negative Urine Urobilinogen Normal Negative mg/dL Urine Leukocyte Esterase 2+ Negative /uL Urine RBC 2 0 - 4 /hpf Urine Microscopic WBC 6 H 0-5 /HPF Urine Squamous Epithelial Cells Few <5 /hpf Urine Bacteria Few H None Seen /hpf Urine Hyaline Casts Few 0 - 2 /lpf Urine Yeast with Hyphae Present /hpf Urine Yeast (Budding) Occasional None Seen /hpf Urine Glucose Normal Normal mg/dL Troponin I High Sensitivity < 3 L </=34 ng/L Test 07/06/24 20:11 07/06/24 18:30 07/06/24 18:21 Range/Units Lactic Acid Level 1.5 0.4-2.0 mmol/L Stool for White Cells Few Lipase 20 12-53 U/L Microbiology Date/Time Source Procedure Growth Status 07/12/24 06:15 Sputum Gram Stain - Final Resulted 07/12/24 06:15 Sputum Respiratory Culture - Preliminary Resulted 07/09/24 17:00 Urine - [place] Urine Culture - Final Complete 07/08/24 04:15 Nose MRSA Screen - Final Complete 07/06/24 18:30 Stool Clostridium difficile Toxin Assay - Final Complete 07/06/24 18:21 Blood Blood Culture - Final NO GROWTH AFTER 5 DAYS OF INCUBATION. Complete Assessment Sinus rhythm with bigeminy PVCs. Nonsustained V-tach. Chronic HFmrEF, NYHA class III. History of pericardial effusion. Septic shock. Acute hypoxic respiratory failure. Pneumonia. HIV. Severe anemia. Thrombocytopenia. Hx of mycobacterium avium complex (MAC). Thyroid disease. Tobacco use. Plan/Recommendation I agree with your ongoing assessment and care of plan. Patient has been seen by Kalli Sin NP on my behalf, her and I discussed the plan with the patient. Transthoracic echocardiogram performed on 04/30/2024 reveals EF 48% with mild global pericardial effusion. We will repeat echocardiogram to reassess pericardial effusion. Unable to initiate guideline directed medical therapy for CHF given that patient is on multiple vasopressors. The patient is presenting with frequent ectopy including PVCs and nonsustained V-tach. Cardiac arrhythmias most likely multifactorial and associated with electrolyte imbalance, severe anemia, and septic shock. We will recommend to monitor and replete electrolytes as needed, keep potassium greater than four and magnesium greater than two. Closely monitor hemoglobin and hematocrit levels and transfuse PRBC as necessary. Patient currently on vasopressor therapy. Continue for hemodynamic support. Close telemetry monitoring. Additional plan as per the hospital course. Plan discussed with: Other NYHA Physical activity limitations: NA Date of Service: Jul 15, 2024 Billing Provider: ABBY GANT MD Cardiology Common Codes: [id number] INP/OBS CARE (High) Cardiology Consultation Codes: [id number] CONSULT <45MIN ABBY GANT MD Jul 15, 2024 16:30
[2024-07-16] VITALS (116 sets, daily range): BP systolic 89–173; BP diastolic 43–87; PULSE 85–114; RESP 20–30; TEMP 96.6–99.7; O2SAT 92–100
--- NOTE | 2024-07-16 05:23 | DVH ---
EXAM: XR Chest, 1 View CLINICAL INDICATION: fu TECHNIQUE: Frontal view of the chest. COMPARISON: XY CHEST PORTABLE on DOS: 07/15/24, XY CHEST PORTABLE on DOS: 07/14/24, XY CHEST PORTABLE o n DOS: 07/13/24, XY CHEST PORTABLE on DOS: 07/12/24, XY CHEST XRAY 1 VIEW on DOS: 07/12/24 FINDINGS: LUNGS AND PLEURAL SPACES: See below. HEART: Cardiomegaly with pulmonary congestion and edema. Superimposed pneumonia cannot be excluded. MEDIASTINUM: Unremarkable. Normal mediastinal contour. BONES/JOINTS: Unremarkable. No acute fracture. TUBES, LINES AND DEVICES: The endotracheal tube (ETT) is in satisfactory position. Enteric tube ti p cannot be seen but is below the diaphragm. OTHER FINDINGS: . . . . . IMPRESSION: Cardiomegaly with pulmonary congestion and edema. Superimposed pneumonia cannot be excluded.
[2024-07-16 06:12] LABS: Hematocrit 17.4 % (36.0-46.0); Mean Corpuscular Hemoglobin 28.9 pg (28.0-32.0); Red Blood Cells 2.04 10^6/uL (4.0-5.20); Red Cell Distribution Width 17.1 % (11.8-14.3); White Blood Cell 2.6 10^3/uL (4.4-10.8)
[2024-07-16 06:19] LABS: Hemoglobin 5.9 g/dL (12.2-16.2); Platelet Count (auto) 11 10^3/uL (140-450)
[2024-07-16 06:21] LABS: Basophils % (manual) 0 (0.0-2.0); Blast Cells 0; Eosinophils % (manual) 0 (0-7); Metamyelocytes % 0; Myelocytes % 0; Promyelocytes % 0; Reactive Lymphocytes 0
[2024-07-16 06:31] LABS: Alkaline Phosphatase 77 U/L (46-116); Anion Gap 5 (5-15); Aspartate Aminotransferase 19 U/L (13-40); BUN/Creatinine Ratio 62.5 (10.0-20.0); Blood Urea Nitrogen 15 mg/dL (9-23)
[2024-07-16 06:32] LABS: Bilirubin, Total 0.3 mg/dL (0.2-1.0)
[2024-07-16 06:38] LABS: Alanine Aminotransferase < 9 U/L (7-40); Albumin 2.1 g/dL (3.2-4.8); Calcium 7.3 mg/dL (8.7-10.4); Carbon Dioxide 34 mmol/L (20-31); Chloride 91 mmol/L (98-107); Glucose 132 mg/dL (74-106); Potassium 3.4 mmol/L (3.5-5.1); Sodium 130 mmol/L (136-145)
[2024-07-16 07:03] LABS: Band Neutrophils % (manual) 4; Lymphocytes % (manual) 9 (10.0-50.0); Monocytes % (manual) 1 (0-12); Platelet Estimate Markedly Decreased
[2024-07-16 07:50] LABS: Base Excess 8.5 mmol/L (-2.0-3.0)
[2024-07-16 08:07] LABS: Hematocrit 17.1 % (36.0-46.0)
[2024-07-16 08:09] LABS: Hemoglobin 5.7 g/dL (12.2-16.2)
[2024-07-16] MEDS: POTASSIUM CHLORIDE 40 MEQ, LIDOCAINE 1% (LOCAL ANESTH.) 4 ML in SODIUM CHL 0.9% 250 ML IV ONE (08:56)
[2024-07-16] MEDS: CHOLESTYRAMINE 4 GM POWDER PO SCH (13:33)
[2024-07-16] MEDS: POTASSIUM PHOSPHATE 44 MEQ in D5W 5% 250 ML IV ONE (14:41)
--- NOTE | 2024-07-16 16:13 | DVHPNRES ---
Progress Note Date Seen: Jul 16, 2024 Resident Creating Document: KADEEM CROCKETT RESIDENT Has the PT tested + for MRSA If YES, has PT been informed?: No Medical Necessity Reason Pt with a Central, PICC or Fol: Yes The following are medically ne: Central Line, Díaz Catheter Reason for díaz catheter: Strict I&O Medical Necessity Reason Patient is a 28 year old female with multiple medical history including HIV, MAC, multiple blood transfusion presented to the ED on 07/06/2024 with a chief complaint of generalized weakness, flu like symptom for 7 days and greenish watery diarrhea for 4 days. Patient's symptoms worsened and she started having chest pain as well.Chest pain was non-radiation, but it was associated with shortness of breath. In the ED, her initial vitals were temp: 99.3, pulse: 140, 139, RR: 16,221 and blood pressure of 75/42-121/64. Lab work revealed wbc: 3.7, hgb: 7.3, hct: 22.9 plt: 87. CMP: Na: 127, K: 3.3. calcium: 6.6 and lactic acid: 2.3. Troponin < 3, BNP: 28 and albumin:1.6. CT abdomen revealed Splenomegaly measuring 20 cm. Questionable pericaval and periaortic adenopathy this is difficult to visualize since there is no oral or IV contrast. Subjective Review of Systems unable to obtained given patient currently intubated Objective vital signs Vital Sign Date Time Temp Pulse Resp B/P (MAP) Pulse Ox O2 Delivery O2 Flow Rate FiO2 07/16/24 15:04 90 21 105/53 (70) 96 30 07/16/24 14:08 99.7 99.7 07/16/24 14:00 Mechanical Ventilator+ Total Intake and Output 07/15/24 07/15/24 07/16/24 15:00 23:00 07:00 Intake Total 1606.379 ml 2648.569 ml 1545.738 ml Output Total 2850 ml 950 ml Balance 1606.379 ml -201.431 ml 595.738 ml medications Current Medications Medications Dose Ordered Sig/Era Route Start Time Stop Time Status Last Admin Dose Admin Pantoprazole Sodium 40 mg DAILY IV 07/07/24 10:00 07/16/24 10:43 40 MG Multivitamins 1 tab DAILY PO 07/07/24 10:00 6/8/25 10:06 1 TAB Acetaminophen 650 mg Q6HP PRN PO 07/06/24 20:15 07/12/24 22:29 650 MG Prochlorperazine Edisylate 5 mg Q4HPRN PRN IV 07/06/24 21:45 07/11/24 14:21 5 MG Nitroglycerin 0.4 mg Q5MINP PRN SL 07/06/24 21:45 Morphine Sulfate 2 mg Q30M PRN IV 07/06/24 21:45 Cancel Morphine Sulfate 2 mg Q30MIN PRN IV 07/07/24 06:45 Cancel Loperamide HCl 2 mg PRN PRN PO 07/08/24 08:45 Hold 07/11/24 03:15 2 MG Morphine Sulfate 2 mg Q30M PRN IV 07/08/24 09:15 07/08/24 15:51 2 MG Al Hydrox/Mg Hydrox/Simethicone 5 ml QID MT 07/08/24 18:00 07/16/24 05:29 5 ML Nystatin 5 ml QID MT 07/08/24 18:00 07/16/24 13:36 5 ML Lorazepam 0.5 mg Q6HP PRN IV 07/09/24 02:30 07/12/24 05:44 0.5 MG Rifampin 300 mg BID PO 07/09/24 22:00 UNV Ethambutol HCl 800 mg DAILY PO 07/09/24 15:45 07/16/24 13:33 800 MG Hydrocortisone Sodium Succinate 100 mg Q12HR IV 07/10/24 10:00 07/16/24 10:43 100 MG Diphenoxylate HCl/ Atropine 2.5 mg Q12HP PRN PO 07/11/24 13:30 07/12/24 05:44 2.5 MG Midazolam HCl 50 ml @ 1 mls/hr Q24H IV 07/12/24 10:30 07/16/24 11:28 11 MLS/HR Fentanyl Citrate 250 ml @ 2.5 mls/hr Q24H IV 07/12/24 10:30 07/16/24 14:12 20 MLS/HR Phenylephrine HCl 250 ml @ 30 mls/hr Q8H20M IV 07/12/24 10:30 07/13/24 14:47 48.75 MLS/HR Vasopressin 20 units/Sodium Chloride 100 ml @ 9 mls/hr Q11H7M IV 07/12/24 17:30 07/15/24 21:27 9 MLS/HR Amino Acids 0 ml @ 0 mls/hr PER PHARMACY IV 07/12/24 17:30 Diagnostic Test (Pha) 1 strip Q6HR 07/13/24 00:00 07/16/24 11:51 1 STRIP Insulin Human Regular FOLLOW SLIDING SCALE Q6HR SC 07/13/24 00:00 07/15/24 23:39 4 UNITS Dextrose 50 ml UD IV 07/12/24 17:45 07/12/24 23:52 50 ML Sodium Chloride 10 ml QSHIFT@10,22 IV 07/12/24 22:00 07/16/24 10:44 10 ML Acetaminophen 650 mg Q6HP PRN SC 07/13/24 08:30 Trimethoprim/ Sulfamethoxazole 0 ml @ 0 mls/hr PER PHARMACY IV 07/13/24 08:30 Trimethoprim/ Sulfamethoxazole 20 ml/Dextrose 520 ml @ 346.667 mls/hr Q8HR IV 07/13/24 12:00 07/16/24 15:15 346.667 MLS/HR Norepinephrine Bitartrate 32 mg/ Sodium Chloride 250 ml @ 0.938 mls/ hr Q24H IV 07/13/24 21:00 07/15/24 10:07 4.688 MLS/HR Insulin Human (Reg)/Sodium Chloride 100 ml @ 0.5 mls/hr Q24H IV 07/14/24 11:15 UNV Diagnostic Test (Pha) 1 strip Q90MIN 07/14/24 12:00 UNV Dextrose 50 ml PRN PRN IV 07/14/24 11:15 UNV Insulin Glargine 15 units DAILY SC 07/15/24 10:00 UNV Sodium Bicarbonate 75 ml/ Dextrose 1,075 ml @ 100 mls/hr [id number] IV 07/14/24 14:30 Cancel Fat Emulsion Intravenous 150 ml/Sodium Chloride 80 meq/ Sodium Phosphate 20 meq/Potassium Chloride 60 meq/ Calcium Gluconate 4.65 meq/ Magnesium Sulfate 10 meq/ Multivitamins 10 ml/Chromium/ Copper/Manganese/ Zinc 1 ml/Amino Acids/Dextrose 1,428.5 ml @ 59 mls/hr [id number] IV 07/15/24 22:00 07/16/24 21:59 07/15/24 21:25 59 MLS/HR Amikacin Sulfate 1000 mg/Dextrose 104 ml @ 104 mls/hr DAILY@2000 IV 07/15/24 20:00 07/15/24 19:25 104 MLS/HR Amikacin Sulfate 0 ml @ 0 mls/hr PER PHARMACY IV 07/15/24 18:30 Meropenem 50 ml @ 17 mls/hr Q8HR IV 07/15/24 22:00 07/16/24 15:13 17 MLS/HR Fat Emulsion Intravenous 150 ml/Sodium Chloride 120 meq/ Sodium Phosphate 40 meq/Potassium Chloride 80 meq/ Calcium Gluconate 4.65 meq/ Magnesium Sulfate 16 meq/ Multivitamins 10 ml/Chromium/ Copper/Manganese/ Zinc 1 ml/Amino Acids/Dextrose 1,605 ml @ 67 mls/hr [id number] IV 07/16/24 22:00 07/17/24 21:59 Cholestyramine Resin 4 gm BID@1100,2300 PO 07/16/24 14:00 07/16/24 13:33 4 GM Examination General Appearance: intubated and sedated, cachetic looking , muscle wasting HEENT: Atraumatic Lungs: crackles Cardiovascular: Normal S1, Normal S2, some episodes of V-tach Musculoskeletal: Normal sensory function, Normal motor function Neuro: unable to access Skin: Dry, edematous Psych/Mental Status: Unable to access laboratory and microbiology Laboratory Tests 07/16/24 07:47 07/16/24 05:47 Test 07/16/24 05:47 Range/Units Serum Glucose 132 H 74-106 mg/dL Microbiology Date/Time Source Procedure Growth Status 07/12/24 06:15 Sputum Gram Stain - Final Complete 07/12/24 06:15 Respiratory Culture - Final Staphylococcus haemolyticus Complete 07/09/24 17:00 Urine - [place] Urine Culture - Final Complete 07/08/24 04:15 Nose MRSA Screen - Final Complete 07/06/24 18:30 Stool Clostridium difficile Toxin Assay - Final Complete 07/06/24 18:21 Blood Blood Culture - Final NO GROWTH AFTER 5 DAYS OF INCUBATION. Complete Problem List/Assessment/Plan Problem List/Assessment/Plan Assessment and plan NEUROLOGY: Acute metabolic encephalopathy CARDIOVASCULAR Severe hypovolemia Sinus rhythm with bigeminy PVCs. Nonsustained V-tach. Chronic HFmrEF, NYHA class III. History of pericardial effusion. Cardiology following Transthoracic echocardiogram performed on 04/30/2024 reveals EF 48% with mild global pericardial effusion. We will repeat echocardiogram to reassess pericardial effusion. Unable to initiate guideline directed medical therapy for CHF given that patient is on multiple vasopressors RESPIRATORY Pneumocystis jiroveci pneumonia Acute hypoxic respiratory failure. Pneumonia PLAN: Hydrocordone succinate For bronchoscopy once the family aggress LP as well. Will need to transfuse 2 units of plate prior to bronchoscopy GASTROINTESTINAL FOBT positive, rule out GI Bleed rule out colitis Diarrhea Hepatosplenomegaly Lymphadenopathy GI following Patient not stable for colonoscopy. Also patient refused all procedures Compazine HEMATOLOGY Severe pancytopenia in the setting of HIV/AIDS Hepatosplenomegaly Lymphadenopathy INFECTIOUS DISEASE HIV MAC Opportunistic infection CMV Septic Shock Possible tuberculosis (TB) infection Possible Histoplasma infection Possible cytomegalovirus (CMV) infection Possible Cryptococcus infection Positive hepatitis B core antibody Continue Meropenem, Amikacin, Bactrim METABOLIC Cachexia Hyponatremia Severe protein calorie malnutrition SKIN Muscle wasting, Temporal Bilateral legs edema IV access: PICC line: left arm 07/12/2024: Fentanyl, midazolam, phenylephrine, NE Midline: right arm: 07/13/2024, Meropenem, Amikacin, Bactrim Drips: Fentanyl, midazolam, phenylephrine, NE Diet: TPN per pharmacy DVT prophylaxis: SCD, platelet low Code status: full Critical care time 45 minutes Advance care discussed with family Case discussed with Dri. Estevez Plan discussed with: Patient Dietary Evaluation Review Recommendations by RD: Increase Calorie Intake, Protein Supplementation Comments: Pt meets criteria for Severe Protein-Calorie Malnutrition in the setting of chronic illness based on severe weight loss (26.2kg/34.6% in 3 months) and moderate muscle wasting(triceps & shoulder). Nutrition Recommendation: 1. Liberalize to regular diet to minimize food restriction 2. Appetite stimulant daily 3. Ensure Enlive 240 ml TID (ordered per [facility] protocol) Expected Outcomes/Goals: To maintain/gain weight To meet at least 75% estimated needs Fu 3-5 days Interpretation of weight loss: >7.5% in 3 months Muscle Mass (Severe): Mod to Severe Depletion Protein Calorie Malnutrition: Severe Is there a minimum of two crit: Yes CC Plasma Assessment Blood Product Administration S: 1340 Date of Service: Jul 16, 2024 Billing Provider: CARYL ESTEVEZ MD Common Visit Codes: NOT BILLABLE KADEEM CROCKETT RESIDENT Jul 16, 2024 16:13 CARYL ESTEVEZ MD Jul 21, 2024 12:56
--- NOTE | 2024-07-16 18:07 | DVHPN2 ---
Progress Note - Dictate Date Seen: Jul 16, 2024 Has the PT tested + for MRSA If YES, has PT been informed?: No Medical Necessity Reason Pt with a Central, PICC or Fol: Yes The following are medically ne: Central Line, Díaz Catheter Reason for díaz catheter: Strict I&O Subjective Patient seen at bedside in [facility] 261 Patient is intubated sedated septic on multiple pressors Diarrhoea is slowing down; pt desaturates when she turns In fact the x-ray suggestive of ileus with dilated loops of bowel possibly related to narcotic use or cholestyramine Stool for C diff was negative Patient is being evaluated by Cardiology for cardiac arrhythmias Severe pancytopenia possibly medication effect on bone marrow Urine culture showed [id number] colony count of Enterococcus species Patient was hospitalized here in April for two weeks with similar symptoms Stool for ova and parasites was negative at that time She was treated conservatively with IV Flagyl cholestyramine Lomotil and nutritional supplements Patient's MRSA screen is negative, she is currently on IV Cipro and oral Bactrim vital signs Vital Sign Date Time Temp Pulse Resp B/P (MAP) Pulse Ox O2 Delivery O2 Flow Rate FiO2 07/16/24 17:36 99.3 94 24 113/60 99.3 07/16/24 17:15 95 07/16/24 16:00 Mechanical Ventilator+ 30 30 Total Intake and Output 07/15/24 07/15/24 07/16/24 15:00 23:00 07:00 Intake Total 1606.379 ml 2648.569 ml 1545.738 ml Output Total 2850 ml 950 ml Balance 1606.379 ml -201.431 ml 595.738 ml medications Current Medications Medications Dose Ordered Sig/Era Route Start Time Stop Time Status Last Admin Dose Admin Pantoprazole Sodium 40 mg DAILY IV 07/07/24 10:00 07/16/24 10:43 40 MG Multivitamins 1 tab DAILY PO 07/07/24 10:00 07/15/24 10:06 1 TAB Acetaminophen 650 mg Q6HP PRN PO 07/06/24 20:15 07/12/24 22:29 650 MG Prochlorperazine Edisylate 5 mg Q4HPRN PRN IV 07/06/24 21:45 07/11/24 14:21 5 MG Nitroglycerin 0.4 mg Q5MINP PRN SL 07/06/24 21:45 Morphine Sulfate 2 mg Q30M PRN IV 07/06/24 21:45 Cancel Morphine Sulfate 2 mg Q30MIN PRN IV 07/07/24 06:45 Cancel Loperamide HCl 2 mg PRN PRN PO 07/08/24 08:45 Hold 07/11/24 03:15 2 MG Morphine Sulfate 2 mg Q30M PRN IV 07/08/24 09:15 07/08/24 15:51 2 MG Al Hydrox/Mg Hydrox/Simethicone 5 ml QID MT 07/08/24 18:00 07/16/24 05:29 5 ML Nystatin 5 ml QID MT 07/08/24 18:00 07/16/24 13:36 5 ML Lorazepam 0.5 mg Q6HP PRN IV 07/09/24 02:30 07/12/24 05:44 0.5 MG Rifampin 300 mg BID PO 07/09/24 22:00 UNV Ethambutol HCl 800 mg DAILY PO 07/09/24 15:45 07/16/24 13:33 800 MG Hydrocortisone Sodium Succinate 100 mg Q12HR IV 07/10/24 10:00 07/16/24 10:43 100 MG Diphenoxylate HCl/ Atropine 2.5 mg Q12HP PRN PO 07/11/24 13:30 07/12/24 05:44 2.5 MG Midazolam HCl 50 ml @ 1 mls/hr Q24H IV 07/12/24 10:30 07/16/24 15:38 13 MLS/HR Fentanyl Citrate 250 ml @ 2.5 mls/hr Q24H IV 07/12/24 10:30 07/16/24 14:12 20 MLS/HR Phenylephrine HCl 250 ml @ 30 mls/hr Q8H20M IV 07/12/24 10:30 07/13/24 14:47 48.75 MLS/HR Vasopressin 20 units/Sodium Chloride 100 ml @ 9 mls/hr Q11H7M IV 07/12/24 17:30 07/15/24 21:27 9 MLS/HR Amino Acids 0 ml @ 0 mls/hr PER PHARMACY IV 07/12/24 17:30 Diagnostic Test (Pha) 1 strip Q6HR 07/13/24 00:00 07/16/24 11:51 1 STRIP Insulin Human Regular FOLLOW SLIDING SCALE Q6HR SC 07/13/24 00:00 07/15/24 23:39 4 UNITS Dextrose 50 ml UD IV 07/12/24 17:45 07/12/24 23:52 50 ML Sodium Chloride 10 ml QSHIFT@10,22 IV 07/12/24 22:00 07/16/24 10:44 10 ML Acetaminophen 650 mg Q6HP PRN WA 07/13/24 08:30 Trimethoprim/ Sulfamethoxazole 0 ml @ 0 mls/hr PER PHARMACY IV 07/13/24 08:30 Trimethoprim/ Sulfamethoxazole 20 ml/Dextrose 520 ml @ 346.667 mls/hr Q8HR IV 07/13/24 12:00 07/16/24 15:15 346.667 MLS/HR Norepinephrine Bitartrate 32 mg/ Sodium Chloride 250 ml @ 0.938 mls/ hr Q24H IV 07/13/24 21:00 07/15/24 10:07 4.688 MLS/HR Insulin Human (Reg)/Sodium Chloride 100 ml @ 0.5 mls/hr Q24H IV 07/14/24 11:15 UNV Diagnostic Test (Pha) 1 strip Q90MIN 07/14/24 12:00 UNV Dextrose 50 ml PRN PRN IV 07/14/24 11:15 UNV Insulin Glargine 15 units DAILY SC 07/15/24 10:00 UNV Sodium Bicarbonate 75 ml/ Dextrose 1,075 ml @ 100 mls/hr [id number] IV 07/14/24 14:30 Cancel Fat Emulsion Intravenous 150 ml/Sodium Chloride 80 meq/ Sodium Phosphate 20 meq/Potassium Chloride 60 meq/ Calcium Gluconate 4.65 meq/ Magnesium Sulfate 10 meq/ Multivitamins 10 ml/Chromium/ Copper/Manganese/ Zinc 1 ml/Amino Acids/Dextrose 1,428.5 ml @ 59 mls/hr [id number] IV 07/15/24 22:00 07/16/24 21:59 07/15/24 21:25 59 MLS/HR Amikacin Sulfate 1000 mg/Dextrose 104 ml @ 104 mls/hr DAILY@2000 IV 07/15/24 20:00 07/15/24 19:25 104 MLS/HR Amikacin Sulfate 0 ml @ 0 mls/hr PER PHARMACY IV 07/15/24 18:30 Meropenem 50 ml @ 17 mls/hr Q8HR IV 07/15/24 22:00 07/16/24 15:13 17 MLS/HR Fat Emulsion Intravenous 150 ml/Sodium Chloride 120 meq/ Sodium Phosphate 40 meq/Potassium Chloride 80 meq/ Calcium Gluconate 4.65 meq/ Magnesium Sulfate 16 meq/ Multivitamins 10 ml/Chromium/ Copper/Manganese/ Zinc 1 ml/Amino Acids/Dextrose 1,605 ml @ 67 mls/hr [id number] IV 07/16/24 22:00 07/17/24 21:59 Cholestyramine Resin 4 gm BID@1100,2300 PO 07/16/24 14:00 07/16/24 13:33 4 GM objective General: NAD, AAOX3; intubated sedated, mild pallor Chest: lung lobo clear to auscultation Heart: RRR, no murmur Abdomen: non-distended, no tenderness to palpation, +BS laboratory and microbiology Laboratory Tests 07/16/24 07:47 07/16/24 05:47 Test 07/16/24 05:47 Range/Units Serum Glucose 132 H 74-106 mg/dL Problems(with codes): (1) Severe anemia (2) History of HIV or AIDS (3) Pneumocystis jiroveci pneumonia (4) Opportunistic infection (5) Diarrhea (6) Hypoalbuminemia (7) Pancytopenia Prognosis Plan Patient has developed severe pancytopenia and her hemoglobin was down to 5.7 today, patient received 2 units PRBC I believe the patient is having bone marrow suppression possibly related to medication effect from Bactrim Discuss with ID consult about discontinuing Bactrim and start IV steroids; hematology consult if pancytopenia does not improve Overall patient is critically ill and prognosis is very guarded Dietary Evaluation Review Recommendations by RD: Increase Calorie Intake, Protein Supplementation Comments: Pt meets criteria for Severe Protein-Calorie Malnutrition in the setting of chronic illness based on severe weight loss (26.2kg/34.6% in 3 months) and moderate muscle wasting(triceps & shoulder). Nutrition Recommendation: 1. Liberalize to regular diet to minimize food restriction 2. Appetite stimulant daily 3. Ensure Enlive 240 ml TID (ordered per ONS protocol) Expected Outcomes/Goals: To maintain/gain weight To meet at least 75% estimated needs Fu 3-5 days Interpretation of weight loss: >7.5% in 3 months Muscle Mass (Severe): Mod to Severe Depletion Protein Calorie Malnutrition: Severe Is there a minimum of two crit: Yes Plan discussed with: Other ([facility] Nurse) CC Plasma Assessment Blood Product Administration S: [id number] JAMESON KIM MD Jul 16, 2024 18:07
[2024-07-16 18:29] LABS: White Blood Cell 3.3 10^3/uL (4.4-10.8)
[2024-07-16 18:31] LABS: Hematocrit 28.8 % (36.0-46.0); Hemoglobin 9.7 g/dL (12.2-16.2); Mean Corpuscular Hgb Conc. 33.9 g/dL (32.0-36.0); Mean Corpuscular Volume 85.7 fL (80.0-100.0); Red Blood Cells 3.36 10^6/uL (4.0-5.20); Red Cell Distribution Width 16.4 % (11.8-14.3)
[2024-07-16 18:34] LABS: INR 1.08 (0.9-1.15); Partial Thromboplastin Time 30.9 SEC (24.5-34.5); Prothrombin Time 11.4 sec (9.3-11.8)
[2024-07-16 18:36] LABS: Alkaline Phosphatase 89 U/L (46-116); Anion Gap 7 (5-15); Aspartate Aminotransferase 23 U/L (13-40); BUN/Creatinine Ratio 37.9 (10.0-20.0); Blood Urea Nitrogen 11 mg/dL (9-23); Chloride 102 mmol/L (98-107); Magnesium 2.1 mg/dL (1.6-2.6); Potassium 3.8 mmol/L (3.5-5.1); Sodium 142 mmol/L (136-145)
[2024-07-16 18:37] LABS: Alanine Aminotransferase < 9 U/L (7-40); Albumin 2.3 g/dL (3.2-4.8); Bilirubin, Total 0.6 mg/dL (0.2-1.0); Calcium 7.9 mg/dL (8.7-10.4); Carbon Dioxide 33 mmol/L (20-31); Glucose 146 mg/dL (74-106); Phosphorus 3.4 mg/dL (2.4-5.1); Platelet Count (auto) 13 10^3/uL (140-450); Total Protein 4.5 g/dL (5.7-8.2)
[2024-07-16 18:39] LABS: Basophils % (manual) 0 (0.0-2.0); Blast Cells 0; Eosinophils % (manual) 0 (0-7); Metamyelocytes % 0; Myelocytes % 0; Promyelocytes % 0; Reactive Lymphocytes 0
[2024-07-16 19:09] LABS: Band Neutrophils % (manual) 2; Lymphocytes % (manual) 9 (10.0-50.0); Monocytes % (manual) 9 (0-12); Platelet Estimate Markedly Decreased
[2024-07-16 19:11] LABS: Anisocytosis Slight
[2024-07-16] MEDS: TPN PER PHARMACY IV NR (21:34)
--- NOTE | 2024-07-16 23:38 | DVHPN2 ---
Progress Note - Dictate Date Seen: Jul 16, 2024 Medical Necessity Reason Pt with a Central, PICC or Fol: Yes The following are medically ne: Central Line, Díaz Catheter Reason for díaz catheter: Strict I&O Subjective Patient was seen and evaluated in follow up in the ICU . Patient is intubated and sedated on ventilator. 30% FiO2. Patient receiving vasopressors for hemodynamic support. Transthoracic echocardiogram performed on 04/30/2024 reveals EF 48% with mild global pericardial effusion. WBC 3.3, HGB 9.7, HCT 28.8, PLT 13, CO2 33. vital signs Vital Sign Date Time Temp Pulse Resp B/P (MAP) Pulse Ox O2 Delivery O2 Flow Rate FiO2 07/16/24 21:59 112 21 92/50 (64) 98 30 07/16/24 20:15 98.4 209.1 07/16/24 20:00 Mechanical Ventilator+ Total Intake and Output 07/15/24 07/15/24 07/16/24 15:00 23:00 07:00 Intake Total 1606.379 ml 2648.569 ml 1545.738 ml Output Total 2850 ml 950 ml Balance 1606.379 ml -201.431 ml 595.738 ml medications Current Medications Medications Dose Ordered Sig/Era Route Start Time Stop Time Status Last Admin Dose Admin Pantoprazole Sodium 40 mg DAILY IV 07/07/24 10:00 07/16/24 10:43 40 MG Multivitamins 1 tab DAILY PO 07/07/24 10:00 07/15/24 10:06 1 TAB Acetaminophen 650 mg Q6HP PRN PO 07/06/24 20:15 07/12/24 22:29 650 MG Prochlorperazine Edisylate 5 mg Q4HPRN PRN IV 07/06/24 21:45 07/11/24 14:21 5 MG Nitroglycerin 0.4 mg Q5MINP PRN SL 07/06/24 21:45 Morphine Sulfate 2 mg Q30M PRN IV 07/06/24 21:45 Cancel Morphine Sulfate 2 mg Q30MIN PRN IV 07/07/24 06:45 Cancel Loperamide HCl 2 mg PRN PRN PO 07/08/24 08:45 Hold 07/11/24 03:15 2 MG Morphine Sulfate 2 mg Q30M PRN IV 07/08/24 09:15 6/1/25 15:51 2 MG Al Hydrox/Mg Hydrox/Simethicone 5 ml QID MT 07/08/24 18:00 07/16/24 22:00 5 ML Nystatin 5 ml QID MT 07/08/24 18:00 07/16/24 21:28 5 ML Lorazepam 0.5 mg Q6HP PRN IV 07/09/24 02:30 07/12/24 05:44 0.5 MG Rifampin 300 mg BID PO 07/09/24 22:00 UNV Ethambutol HCl 800 mg DAILY PO 07/09/24 15:45 07/16/24 13:33 800 MG Hydrocortisone Sodium Succinate 100 mg Q12HR IV 07/10/24 10:00 07/16/24 21:28 100 MG Diphenoxylate HCl/ Atropine 2.5 mg Q12HP PRN PO 07/11/24 13:30 07/12/24 05:44 2.5 MG Midazolam HCl 50 ml @ 1 mls/hr Q24H IV 07/12/24 10:30 07/16/24 19:45 13 MLS/HR Fentanyl Citrate 250 ml @ 2.5 mls/hr Q24H IV 07/12/24 10:30 07/16/24 14:12 20 MLS/HR Phenylephrine HCl 250 ml @ 30 mls/hr Q8H20M IV 07/12/24 10:30 07/13/24 14:47 48.75 MLS/HR Vasopressin 20 units/Sodium Chloride 100 ml @ 9 mls/hr Q11H7M IV 07/12/24 17:30 07/15/24 21:27 9 MLS/HR Amino Acids 0 ml @ 0 mls/hr PER PHARMACY IV 07/12/24 17:30 Diagnostic Test (Pha) 1 strip Q6HR 07/13/24 00:00 07/16/24 18:39 1 STRIP Insulin Human Regular FOLLOW SLIDING SCALE Q6HR SC 07/13/24 00:00 07/16/24 18:40 4 UNITS Dextrose 50 ml UD IV 07/12/24 17:45 07/12/24 23:52 50 ML Sodium Chloride 10 ml QSHIFT@10,22 IV 07/12/24 22:00 07/16/24 21:29 10 ML Acetaminophen 650 mg Q6HP PRN OR 07/13/24 08:30 Trimethoprim/ Sulfamethoxazole 0 ml @ 0 mls/hr PER PHARMACY IV 07/13/24 08:30 Trimethoprim/ Sulfamethoxazole 20 ml/Dextrose 520 ml @ 346.667 mls/hr Q8HR IV 07/13/24 12:00 07/16/24 21:29 346.667 MLS/HR Norepinephrine Bitartrate 32 mg/ Sodium Chloride 250 ml @ 0.938 mls/ hr Q24H IV 07/13/24 21:00 07/15/24 10:07 4.688 MLS/HR Insulin Human (Reg)/Sodium Chloride 100 ml @ 0.5 mls/hr Q24H IV 07/14/24 11:15 UNV Diagnostic Test (Pha) 1 strip Q90MIN 07/14/24 12:00 UNV Dextrose 50 ml PRN PRN IV 07/14/24 11:15 UNV Insulin Glargine 15 units DAILY SC 07/15/24 10:00 UNV Sodium Bicarbonate 75 ml/ Dextrose 1,075 ml @ 100 mls/hr [id number] IV 07/14/24 14:30 Cancel Amikacin Sulfate 1000 mg/Dextrose 104 ml @ 104 mls/hr DAILY@2000 IV 07/15/24 20:00 07/15/24 19:25 104 MLS/HR Amikacin Sulfate 0 ml @ 0 mls/hr PER PHARMACY IV 07/15/24 18:30 Meropenem 50 ml @ 17 mls/hr Q8HR IV 07/15/24 22:00 07/16/24 22:41 17 MLS/HR Fat Emulsion Intravenous 150 ml/Sodium Chloride 120 meq/ Sodium Phosphate 40 meq/Potassium Chloride 80 meq/ Calcium Gluconate 4.65 meq/ Magnesium Sulfate 16 meq/ Multivitamins 10 ml/Chromium/ Copper/Manganese/ Zinc 1 ml/Amino Acids/Dextrose 1,605 ml @ 67 mls/hr [id number] IV 07/16/24 22:00 07/17/24 21:59 07/16/24 21:34 67 MLS/HR Cholestyramine Resin 4 gm BID@1100,2300 PO 07/16/24 14:00 07/16/24 22:42 4 GM objective GENERAL: Ill appearing, intubated on ventilator. EYES: PERRL, EOMI. Anicteric. HENT: Moist mucous membranes. LUNGS: Decreased breath sounds. CARDIOVASCULAR: Regular rate and rhythm. ABDOMEN: Soft, nontender and nondistended. EXTREMITIES: 4+ BLE pitting edema. SKIN: Warm, dry. laboratory and microbiology Laboratory Tests 07/16/24 18:09 Test 07/16/24 18:09 Range/Units Serum Glucose 146 H 74-106 mg/dL Problem List Sinus rhythm with bigeminy PVCs. Nonsustained V-tach. Chronic HFmrEF, NYHA class III. History of pericardial effusion. Septic shock. Acute hypoxic respiratory failure. Pneumonia. HIV. Severe anemia. Thrombocytopenia. History of mycobacterium avium complex (MAC). Thyroid disease. Tobacco use. Assessment/Plan Continued all current supportive medical care. Repeat echocardiogram to reassess pericardial effusion. IV antibiotics as ordered. Morphine for pain management. Vasopressor for hemodynamic support. Additional plan as per the hospital course. Critical care time of 45 minutes provided to include time spent evaluation of patient at bedside, when appropriate patient/family education for diagnosis, treatment plan, review of pertinent medical information and discussion of care with specialty providers and PCP. Mechanical ventilator parameters, treatment and adjustments have personally been reviewed by me and treatment plan by acute care nurse has also been reviewed. Dietary Evaluation Review Recommendations by RD: Increase Calorie Intake, Protein Supplementation Comments: Pt meets criteria for Severe Protein-Calorie Malnutrition in the setting of chronic illness based on severe weight loss (26.2kg/34.6% in 3 months) and moderate muscle wasting(triceps & shoulder). Nutrition Recommendation: 1. Liberalize to regular diet to minimize food restriction 2. Appetite stimulant daily 3. Ensure Enlive 240 ml TID (ordered per ONS protocol) Expected Outcomes/Goals: To maintain/gain weight To meet at least 75% estimated needs Fu 3-5 days Interpretation of weight loss: >7.5% in 3 months Muscle Mass (Severe): Mod to Severe Depletion Protein Calorie Malnutrition: Severe Is there a minimum of two crit: Yes Plan discussed with: Other CC Plasma Assessment Blood Product Administration S: [id number] ABBY GANT MD Jul 16, 2024 23:38
[2024-07-17] VITALS (100 sets, daily range): BP systolic 86–129; BP diastolic 40–79; PULSE 83–117; RESP 19–30; TEMP 97.9–100.2; O2SAT 89–99
--- NOTE | 2024-07-17 04:50 | DVH ---
INDICATION: pulmonary congestion TECHNIQUE: Frontal view of the chest. COMPARISON: XY CHEST PORTABLE on DOS: 07/16/24, XY CHEST PORTABLE on DOS: 07/15/24, XY CHEST PORTABLE on DOS: 07/14/24, XY CHEST PORTABLE on DOS: 07/13/24, XY CHEST PORTABLE on DOS: 07/12/24, XY CHEST PORTABLE on DOS: 07/16/24 FINDINGS: LUNGS AND PLEURAL SPACES: See below. HEART: Cardiomegaly with pulmonary congestion and edema. Superimposed pneumonia cannot be excluded. MEDIASTINUM: Unremarkable. Normal mediastinal contour. BONES/JOINTS: Unremarkable. No acute fracture. TUBES, LINES AND DEVICES: The endotracheal tube (ETT) is in satisfactory position. Enteric tube ti p cannot be seen but is below the diaphragm. IMPRESSION: Cardiomegaly with pulmonary congestion and edema. Superimposed pneumonia cannot be excluded.
[2024-07-17 04:59] LABS: Hemoglobin 8.8 g/dL (12.2-16.2); White Blood Cell 2.2 10^3/uL (4.4-10.8)
[2024-07-17 05:03] LABS: Hematocrit 25.8 % (36.0-46.0); Mean Corpuscular Hemoglobin 29.5 pg (28.0-32.0); Mean Corpuscular Hgb Conc. 34.1 g/dL (32.0-36.0); Mean Corpuscular Volume 86.7 fL (80.0-100.0); Red Blood Cells 2.97 10^6/uL (4.0-5.20); Red Cell Distribution Width 16.3 % (11.8-14.3)
[2024-07-17 05:04] LABS: Platelet Count (auto) 9 10^3/uL (140-450)
[2024-07-17 05:06] LABS: Basophils % (manual) 0 (0.0-2.0); Blast Cells 0; Eosinophils % (manual) 0 (0-7); Metamyelocytes % 0; Myelocytes % 0; Promyelocytes % 0; Reactive Lymphocytes 0
[2024-07-17 05:22] LABS: Alkaline Phosphatase 73 U/L (46-116); Anion Gap 8 (5-15); BUN/Creatinine Ratio 47.6 (10.0-20.0); Blood Urea Nitrogen 10 mg/dL (9-23); Chloride 105 mmol/L (98-107); Magnesium 2.1 mg/dL (1.6-2.6); Phosphorus 3.8 mg/dL (2.4-5.1); Potassium 3.7 mmol/L (3.5-5.1)
[2024-07-17 05:23] LABS: Alanine Aminotransferase < 9 U/L (7-40); Albumin 2.1 g/dL (3.2-4.8); Bilirubin, Total 0.4 mg/dL (0.2-1.0); Calcium 7.5 mg/dL (8.7-10.4); Carbon Dioxide 35 mmol/L (20-31); Glucose 156 mg/dL (74-106); Sodium 148 mmol/L (136-145); Total Protein 4.1 g/dL (5.7-8.2)
[2024-07-17 05:39] LABS: Aspartate Aminotransferase 18 U/L (13-40)
[2024-07-17 05:59] LABS: Band Neutrophils % (manual) 5; Lymphocytes % (manual) 4 (10.0-50.0); Monocytes % (manual) 1 (0-12)
[2024-07-17 06:02] LABS: Platelet Estimate Marked
[2024-07-17 06:02] LABS: Base Excess 8.9 mmol/L (-2.0-3.0)
[2024-07-17] MEDS: FUROSEMIDE 20 MG/2 ML VIAL IV ONE (09:30)
[2024-07-17] MEDS: AMIKACIN 1,000 MG in D5W 5% 100 ML IV SCH (09:55)
--- NOTE | 2024-07-17 11:18 | DVHPNRES ---
Progress Note Date Seen: Jul 17, 2024 Resident Creating Document: KADEEM CROCKETT Medical Necessity Reason Pt with a Central, PICC or Fol: Yes The following are medically ne: PICC Line, Díaz Catheter Reason for díaz catheter: Strict I&O Subjective Review of Systems Patient seen and examined at the bedside with the nurses present. Patient is sedated on sedatives, mechanical ventilation, on antibiotics. Per the nurse patient made a total of 10,475 mls in 24 hours. Her sister, Mamie is at bedside. Yesterday, Dr. Estevez explained to the sister on the phone that she would need a bronchoscopy for samples to be taken to further test. Sister came today and I explained to her the need for bronchoscopy and LP. She agreed and signed the consent. Objective vital signs Vital Sign Date Time Temp Pulse Resp B/P (MAP) Pulse Ox O2 Delivery O2 Flow Rate FiO2 07/17/24 10:00 103 07/17/24 10:00 22 94 Mechanical Ventilator+ 30 30 07/17/24 09:26 97/53 07/17/24 06:45 98.6 209.5 Total Intake and Output 07/16/24 07/16/24 07/17/24 15:00 23:00 07:00 Intake Total 776.066 ml 2357.376 ml 803.125 ml Output Total 6750 ml 3725 ml Balance 776.066 ml -4392.624 ml -2921.875 ml medications Current Medications Medications Dose Ordered Sig/Era Route Start Time Stop Time Status Last Admin Dose Admin Pantoprazole Sodium 40 mg DAILY IV 07/07/24 10:00 07/17/24 10:24 40 MG Multivitamins 1 tab DAILY PO 07/07/24 10:00 07/17/24 10:24 1 TAB Acetaminophen 650 mg Q6HP PRN PO 07/06/24 20:15 07/12/24 22:29 650 MG Prochlorperazine Edisylate 5 mg Q4HPRN PRN IV 07/06/24 21:45 07/11/24 14:21 5 MG Nitroglycerin 0.4 mg Q5MINP PRN SL 07/06/24 21:45 Morphine Sulfate 2 mg Q30M PRN IV 07/06/24 21:45 Cancel Morphine Sulfate 2 mg Q30MIN PRN IV 07/07/24 06:45 Cancel Loperamide HCl 2 mg PRN PRN PO 07/08/24 08:45 Hold 07/11/24 03:15 2 MG Morphine Sulfate 2 mg Q30M PRN IV 07/08/24 09:15 07/08/24 15:51 2 MG Al Hydrox/Mg Hydrox/Simethicone 5 ml QID MT 07/08/24 18:00 07/17/24 06:07 5 ML Nystatin 5 ml QID MT 07/08/24 18:00 07/17/24 06:06 5 ML Lorazepam 0.5 mg Q6HP PRN IV 07/09/24 02:30 07/12/24 05:44 0.5 MG Rifampin 300 mg BID PO 07/09/24 22:00 UNV Ethambutol HCl 800 mg DAILY PO 07/09/24 15:45 07/17/24 10:25 800 MG Hydrocortisone Sodium Succinate 100 mg Q12HR IV 07/10/24 10:00 07/17/24 10:24 100 MG Diphenoxylate HCl/ Atropine 2.5 mg Q12HP PRN PO 07/11/24 13:30 07/12/24 05:44 2.5 MG Midazolam HCl 50 ml @ 1 mls/hr Q24H IV 07/12/24 10:30 07/17/24 09:26 13 MLS/HR Fentanyl Citrate 250 ml @ 2.5 mls/hr Q24H IV 07/12/24 10:30 07/17/24 01:02 20 MLS/HR Phenylephrine HCl 250 ml @ 30 mls/hr Q8H20M IV 07/12/24 10:30 07/13/24 14:47 48.75 MLS/HR Vasopressin 20 units/Sodium Chloride 100 ml @ 9 mls/hr Q11H7M IV 07/12/24 17:30 07/15/24 21:27 9 MLS/HR Amino Acids 0 ml @ 0 mls/hr PER PHARMACY IV 07/12/24 17:30 Diagnostic Test (Pha) 1 strip Q6HR 07/13/24 00:00 07/17/24 05:47 1 STRIP Insulin Human Regular FOLLOW SLIDING SCALE Q6HR SC 07/13/24 00:00 07/17/24 06:08 2 UNITS Dextrose 50 ml UD IV 07/12/24 17:45 07/12/24 23:52 50 ML Sodium Chloride 10 ml QSHIFT@10,22 IV 07/12/24 22:00 07/17/24 10:24 10 ML Acetaminophen 650 mg Q6HP PRN RI 07/13/24 08:30 Trimethoprim/ Sulfamethoxazole 0 ml @ 0 mls/hr PER PHARMACY IV 07/13/24 08:30 Trimethoprim/ Sulfamethoxazole 20 ml/Dextrose 520 ml @ 346.667 mls/hr Q8HR IV 07/13/24 12:00 07/17/24 06:06 346.667 MLS/HR Norepinephrine Bitartrate 32 mg/ Sodium Chloride 250 ml @ 0.938 mls/ hr Q24H IV 07/13/24 21:00 07/15/24 10:07 4.688 MLS/HR Insulin Human (Reg)/Sodium Chloride 100 ml @ 0.5 mls/hr Q24H IV 07/14/24 11:15 UNV Diagnostic Test (Pha) 1 strip Q90MIN 07/14/24 12:00 UNV Dextrose 50 ml PRN PRN IV 07/14/24 11:15 UNV Insulin Glargine 15 units DAILY SC 07/15/24 10:00 UNV Sodium Bicarbonate 75 ml/ Dextrose 1,075 ml @ 100 mls/hr [id number] IV 07/14/24 14:30 Cancel Amikacin Sulfate 0 ml @ 0 mls/hr PER PHARMACY IV 07/15/24 18:30 Meropenem 50 ml @ 17 mls/hr Q8HR IV 07/15/24 22:00 07/17/24 06:06 17 MLS/HR Fat Emulsion Intravenous 150 ml/Sodium Chloride 120 meq/ Sodium Phosphate 40 meq/Potassium Chloride 80 meq/ Calcium Gluconate 4.65 meq/ Magnesium Sulfate 16 meq/ Multivitamins 10 ml/Chromium/ Copper/Manganese/ Zinc 1 ml/Amino Acids/Dextrose 1,605 ml @ 67 mls/hr [id number] IV 07/16/24 22:00 07/17/24 21:59 07/16/24 21:34 67 MLS/HR Cholestyramine Resin 4 gm BID@1100,2300 PO 07/16/24 14:00 07/16/24 22:42 4 GM Amikacin Sulfate 1000 mg/Dextrose 104 ml @ 104 mls/hr DAILY@1000 IV 07/17/24 10:00 07/17/24 09:59 104 MLS/HR Examination General Appearance: intubated and sedated, cachetic looking , muscle wasting HEENT: Atraumatic Lungs/chest: petechiae noted on her right shoulders / clavicle; aeration improved. Cardiovascular: Normal S1, Normal S2, some episodes of V-tach Musculoskeletal: Normal sensory function, Normal motor function Neuro: unable to access Skin: Dry, Generalized gross edema Psych/Mental Status: Unable to access laboratory and microbiology Laboratory Tests 07/17/24 04:25 Test 07/17/24 04:25 Range/Units Serum Glucose 156 H 74-106 mg/dL Microbiology Date/Time Source Procedure Growth Status 07/12/24 06:15 Sputum Gram Stain - Final Complete 07/12/24 06:15 Respiratory Culture - Final Staphylococcus haemolyticus Complete 07/09/24 17:00 Urine - Díaz [place] Urine Culture - Final Complete 07/08/24 04:15 Nose MRSA Screen - Final Complete 07/06/24 18:30 Stool Clostridium difficile Toxin Assay - Final Complete 07/06/24 18:21 Blood Blood Culture - Final NO GROWTH AFTER 5 DAYS OF INCUBATION. Complete Problem List/Assessment/Plan Problem List/Assessment/Plan Assessment and plan NEUROLOGY: Acute metabolic encephalopathy CARDIOVASCULAR Severe hypovolemia Sinus rhythm with bigeminy PVCs. Nonsustained V-tach. Chronic HFmrEF, NYHA class III. History of pericardial effusion. Cardiology following Transthoracic echocardiogram performed on 04/30/2024 reveals EF 48% with mild global pericardial effusion. We will repeat echocardiogram to reassess pericardial effusion. Unable to initiate guideline directed medical therapy for CHF given that patient is on multiple vasopressors RESPIRATORY Pneumocystis jiroveci pneumonia Acute hypoxic respiratory failure. Pneumonia PLAN: Hydrocordone succinate For bronchoscopy once the family aggress LP as well. Will need to transfuse 2 units of plate prior to bronchoscopy GASTROINTESTINAL FOBT positive, rule out GI Bleed rule out colitis Diarrhea Hepatosplenomegaly Lymphadenopathy GI following Patient not stable for colonoscopy. Also patient refused all procedures Compazine HEMATOLOGY Severe pancytopenia in the setting of HIV/AIDS Hepatosplenomegaly Lymphadenopathy INFECTIOUS DISEASE HIV/AIDS MAC Opportunistic infection CMV Septic Shock Possible tuberculosis (TB) infection Possible Histoplasma infection Possible cytomegalovirus (CMV) infection Possible Cryptococcus infection Positive hepatitis B core antibody Plan: obtain AFB culture for blood, sputum and stool Called lab, they can only do sputum Continue Meropenem, Amikacin, Bactrim GENITOURINARY: produced over 10,475 ml of urine 24 hours To obtain serum osmolality and urine osmolality METABOLIC Cachexia Hyponatremia Severe protein calorie malnutrition SKIN Sacral DTI, Muscle wasting, Temporal Bilateral legs edema Patient unstable for turns IV access: PICC line: left arm 07/12/2024: Fentanyl, midazolam, phenylephrine, NE Midline: right arm: 07/13/2024, Meropenem, Amikacin, Bactrim Drips: Fentanyl, midazolam, phenylephrine, NE Diet: TPN per pharmacy DVT prophylaxis: SCD, platelet low Consent received. s/p bronchoscopy For LP tomorrow. will transfuse 2 unit of platelets prior for MRI today Patient's ID DR. Radha Yanes: [phone] Code status: full Critical care time 45 minutes Advance care discussed with family ( SISTER, Mamie) Case discussed with Dri. Estevez Plan discussed with: Other My Orders My Orders Orders - KADEEM CROCKETT RESIDENT Procedure Category Date Status Time Basic Metabolic Panel LAB 07/18/24 Verified 04:00 Complete Blood Count LAB 07/18/24 Verified 04:00 Osmolality Urine LAB 07/17/24 Logged 10:08 Urine Creatinine LAB 07/17/24 Logged 10:08 Urine Sodium LAB 07/17/24 Logged 10:08 Osmolality, Serum LAB 07/17/24 In Process 10:14 Dietary Evaluation Review Recommendations by RD: Increase Calorie Intake, Protein Supplementation Comments: Pt meets criteria for Severe Protein-Calorie Malnutrition in the setting of chronic illness based on severe weight loss (26.2kg/34.6% in 3 months) and moderate muscle wasting(triceps & shoulder). Nutrition Recommendation: 1. Liberalize to regular diet to minimize food restriction 2. Appetite stimulant daily 3. Ensure Enlive 240 ml TID (ordered per ONS protocol) Expected Outcomes/Goals: To maintain/gain weight To meet at least 75% estimated needs Fu 3-5 days Interpretation of weight loss: >7.5% in 3 months Muscle Mass (Severe): Mod to Severe Depletion Protein Calorie Malnutrition: Severe Is there a minimum of two crit: Yes CC Plasma Assessment Blood Product Administration S: [id number] Date of Service: Jul 17, 2024 Billing Provider: CARYL ESTEVEZ MD Common Visit Codes: NOT BILLABLE KEIRAKADEEM RESIDENT Jul 17, 2024 11:18 CARYL ESTEVEZ MD Jul 21, 2024 12:56
--- NOTE | 2024-07-17 14:12 | DVHNC2 ---
Procedure - Procedure- Bronchoscopy and bronchial washings Indication- Secretions Procedure in detail Consent was obtained and timeout performed per protocol. The patient was placed on 100% FiO2. Olympus bronchoscope was used and passed through the endotracheal tube, tracheobronchial tree was examined. There was mild to moderate semi- purulent secretions in the airways bilaterally that were loosened up with approximately 50 cc of normal saline and thoroughly suctioned into a separate specimen container. There were no endobronchial lesions however, there was petechial mucosa which appeared inflamed and easily friable. After the procedure, the scope was removed. Patient tolerated the procedure well. Sample was sent for fungal stain, gram stain and AFB. CARYL SUNG MD Jul 17, 2024 14:12
--- NOTE | 2024-07-17 17:00 | DVH ---
PROCEDURE: MRI BRAIN HEAD WO CONTRAST INDICATION: rule out machine ii cutter lesions EXAM DATE: 07/17/2024 03:15 PM COMPARISON: None TECHNIQUE: MRI of the brain without intravenous contrast. FINDINGS: Limited by motion. Diffusion weighted images of the brain demonstrate no evidence of acute infarction. There is no evidence of acute intracranial hemorrhage, extra-axial collection, mass effect, midline s hift, herniation or hydrocephalus. The ventricles, sulci and cisterns appear age appropriate. The signal intensities of the brain parenchyma are within normal limits. There are no signal abnormalities on the susceptibility weighted sequences. The major vascular flow voids are present. The visualized paranasal sinuses and mastoid air cells are clear. The surrounding soft tissues and o sseous structures are unremarkable. IMPRESSION: 1. Limited by motion. No evidence of acute infarction, intracranial hemorrhage, mass effect or hydroc ephalus. No definite [employer] NET lesion identified. Consider follow-up exam when patient is able to tolerate. HS:Y
--- NOTE | 2024-07-17 18:24 | DVHPN2 ---
Progress Note - Dictate Date Seen: Jul 17, 2024 Medical Necessity Reason Pt with a Central, PICC or Fol: Yes The following are medically ne: PICC Line, Díaz Catheter Reason for díaz catheter: Strict I&O Subjective Patient seen at bedside in [facility] [id number] Patient is intubated sedated septic on multiple pressors No bowel movement today Nurse reports excessive amount of diuresis since yesterday even without getting diuretics; possible medication effect, pharmacy concerned about amikacin Patient underwent bronchoscopy this morning Patient is being evaluated by Cardiology for cardiac arrhythmias Severe pancytopenia possibly medication effect on bone marrow; concern regarding Bactrim use Urine culture showed [id number] colony count of Enterococcus species vital signs Vital Sign Date Time Temp Pulse Resp B/P (MAP) Pulse Ox O2 Delivery O2 Flow Rate FiO2 07/17/24 16:02 98 24 102/54 (70) 98 30 07/17/24 16:00 Mechanical Ventilator+ 07/17/24 14:45 99.9 211.8 Total Intake and Output 07/16/24 07/16/24 07/17/24 15:00 23:00 07:00 Intake Total 776.066 ml 2357.376 ml 1251.667 ml Output Total 6750 ml 3725 ml Balance 776.066 ml -4392.624 ml -2473.333 ml medications Current Medications Medications Dose Ordered Sig/Era Route Start Time Stop Time Status Last Admin Dose Admin Pantoprazole Sodium 40 mg DAILY IV 07/07/24 10:00 07/17/24 10:24 40 MG Multivitamins 1 tab DAILY PO 07/07/24 10:00 07/17/24 10:24 1 TAB Acetaminophen 650 mg Q6HP PRN PO 07/06/24 20:15 07/12/24 22:29 650 MG Prochlorperazine Edisylate 5 mg Q4HPRN PRN IV 07/06/24 21:45 07/11/24 14:21 5 MG Nitroglycerin 0.4 mg Q5MINP PRN SL 07/06/24 21:45 Morphine Sulfate 2 mg Q30M PRN IV 07/06/24 21:45 Cancel Morphine Sulfate 2 mg Q30MIN PRN IV 07/07/24 06:45 Cancel Loperamide HCl 2 mg PRN PRN PO 07/08/24 08:45 Hold 07/11/24 03:15 2 MG Morphine Sulfate 2 mg Q30M PRN IV 07/08/24 09:15 07/08/24 15:51 2 MG Al Hydrox/Mg Hydrox/Simethicone 5 ml QID MT 07/08/24 18:00 07/17/24 16:22 5 ML Nystatin 5 ml QID MT 07/08/24 18:00 07/17/24 16:28 5 ML Lorazepam 0.5 mg Q6HP PRN IV 07/09/24 02:30 07/12/24 05:44 0.5 MG Rifampin 300 mg BID PO 07/09/24 22:00 UNV Ethambutol HCl 800 mg DAILY PO 07/09/24 15:45 07/17/24 10:25 800 MG Hydrocortisone Sodium Succinate 100 mg Q12HR IV 07/10/24 10:00 07/17/24 10:24 100 MG Diphenoxylate HCl/ Atropine 2.5 mg Q12HP PRN PO 07/11/24 13:30 07/12/24 05:44 2.5 MG Midazolam HCl 50 ml @ 1 mls/hr Q24H IV 07/12/24 10:30 07/17/24 13:00 13 MLS/HR Fentanyl Citrate 250 ml @ 2.5 mls/hr Q24H IV 07/12/24 10:30 07/17/24 13:28 20 MLS/HR Phenylephrine HCl 250 ml @ 30 mls/hr Q8H20M IV 07/12/24 10:30 07/13/24 14:47 48.75 MLS/HR Vasopressin 20 units/Sodium Chloride 100 ml @ 9 mls/hr Q11H7M IV 07/12/24 17:30 07/15/24 21:27 9 MLS/HR Amino Acids 0 ml @ 0 mls/hr PER PHARMACY IV 07/12/24 17:30 Diagnostic Test (Pha) 1 strip Q6HR 07/13/24 00:00 07/17/24 16:21 1 STRIP Insulin Human Regular FOLLOW SLIDING SCALE Q6HR SC 07/13/24 00:00 07/17/24 16:29 2 UNITS Dextrose 50 ml UD IV 07/12/24 17:45 07/12/24 23:52 50 ML Sodium Chloride 10 ml QSHIFT@10,22 IV 07/12/24 22:00 07/17/24 10:24 10 ML Acetaminophen 650 mg Q6HP PRN OH 07/13/24 08:30 Trimethoprim/ Sulfamethoxazole 0 ml @ 0 mls/hr PER PHARMACY IV 07/13/24 08:30 Trimethoprim/ Sulfamethoxazole 20 ml/Dextrose 520 ml @ 346.667 mls/hr Q8HR IV 07/13/24 12:00 07/17/24 16:15 346.667 MLS/HR Norepinephrine Bitartrate 32 mg/ Sodium Chloride 250 ml @ 0.938 mls/ hr Q24H IV 07/13/24 21:00 07/17/24 12:30 2.813 MLS/HR Insulin Human (Reg)/Sodium Chloride 100 ml @ 0.5 mls/hr Q24H IV 07/14/24 11:15 UNV Diagnostic Test (Pha) 1 strip Q90MIN 07/14/24 12:00 UNV Dextrose 50 ml PRN PRN IV 07/14/24 11:15 UNV Insulin Glargine 15 units DAILY SC 07/15/24 10:00 UNV Sodium Bicarbonate 75 ml/ Dextrose 1,075 ml @ 100 mls/hr [id number] IV 07/14/24 14:30 Cancel Amikacin Sulfate 0 ml @ 0 mls/hr PER PHARMACY IV 07/15/24 18:30 Meropenem 50 ml @ 17 mls/hr Q8HR IV 07/15/24 22:00 07/17/24 16:52 17 MLS/HR Fat Emulsion Intravenous 150 ml/Sodium Chloride 120 meq/ Sodium Phosphate 40 meq/Potassium Chloride 80 meq/ Calcium Gluconate 4.65 meq/ Magnesium Sulfate 16 meq/ Multivitamins 10 ml/Chromium/ Copper/Manganese/ Zinc 1 ml/Amino Acids/Dextrose 1,605 ml @ 67 mls/hr [id number] IV 07/16/24 22:00 07/17/24 21:59 07/16/24 21:34 67 MLS/HR Cholestyramine Resin 4 gm BID@1100,2300 PO 07/16/24 14:00 07/16/24 22:42 4 GM Amikacin Sulfate 1000 mg/Dextrose 104 ml @ 104 mls/hr DAILY@1000 IV 07/17/24 10:00 07/17/24 09:59 104 MLS/HR Fat Emulsion Intravenous 100 ml/Potassium Chloride 50 meq/ Potassium Phosphate 22 meq/ Calcium Gluconate 2.3 meq/Magnesium Sulfate 12 meq/ Multivitamins 10 ml/Chromium/ Copper/Manganese/ Zinc 1 ml/Amino Acids/Dextrose 1,448.9462 ml @ 60 mls/hr Q24H9M IV 07/17/24 22:00 07/18/24 21:59 objective General: NAD, AAOX3; intubated sedated, mild pallor Chest: lung lobo clear to auscultation Heart: RRR, no murmur Abdomen: non-distended, no tenderness to palpation, +BS laboratory and microbiology Laboratory Tests 07/17/24 04:25 Test 07/17/24 04:25 Range/Units Serum Glucose 156 H 74-106 mg/dL Problems(with codes): (1) History of HIV or AIDS (2) Pneumocystis jiroveci pneumonia (3) Opportunistic infection (4) Hypoalbuminemia (5) Hyponatremia (6) Anemia (7) Tachycardia (8) Pancytopenia (9) Generalized weakness Prognosis Plan Hold cholestyramine and Lomotil and only use as needed Continue IV TPN;IV PPI Request ID consult to re-evaluate her antibiotic use and see if IV Bactrim can be DC ID consult also to evaluate if possibly patient can be started on low-dose methylprednisolone Transfused 2 packs of platelets Overall short-term and long-term prognosis remains guarded Dietary Evaluation Review Recommendations by RD: Increase Calorie Intake, Protein Supplementation Comments: Pt meets criteria for Severe Protein-Calorie Malnutrition in the setting of chronic illness based on severe weight loss (26.2kg/34.6% in 3 months) and moderate muscle wasting(triceps & shoulder). Nutrition Recommendation: 1. Liberalize to regular diet to minimize food restriction 2. Appetite stimulant daily 3. Ensure Enlive 240 ml TID (ordered per ONS protocol) Expected Outcomes/Goals: To maintain/gain weight To meet at least 75% estimated needs Fu 3-5 days Interpretation of weight loss: >7.5% in 3 months Muscle Mass (Severe): Mod to Severe Depletion Protein Calorie Malnutrition: Severe Is there a minimum of two crit: Yes Plan discussed with: Patient CC Plasma Assessment Blood Product Administration S: [id number] JAMESON KIM MD Jul 17, 2024 18:23
[2024-07-17] MEDS: TPN PER PHARMACY IV NR (22:41)
--- NOTE | 2024-07-17 22:53 | DVHPN2 ---
Progress Note - Dictate Date Seen: Jul 17, 2024 Medical Necessity Reason Pt with a Central, PICC or Fol: Yes The following are medically ne: PICC Line, Díaz Catheter Reason for díaz catheter: Strict I&O Subjective Patient was seen and evaluated in follow up in the ICU . Patient is intubated and sedated on ventilator. 30% FiO2. Patient underwent bronchoscopy and bronchial washings with Dr. Estevez. Urine culture showed 31563 colony count of Enterococcus species. WB2.2, RBC 2.97, HGB 8.8, HCT 25.8, PLT 9, NA 148, CO2 35, C 7.5. Chest x-ray shows cardiomegaly with pulmonary congestion and edema. MRI brain: limited by motion. No evidence of acute infarction, intracranial hemorrhage, mass effect or hydrocephalus. No definite [employer] lesion identified. Echocardiogram shows an EF of 45%. vital signs Vital Sign Date Time Temp Pulse Resp B/P (MAP) Pulse Ox O2 Delivery O2 Flow Rate FiO2 07/17/24 21:30 94 20 120/60 (80) 95 30 07/17/24 20:45 98.8 209.8 07/17/24 20:00 Mechanical Ventilator+ Total Intake and Output 07/16/24 07/16/24 07/17/24 15:00 23:00 07:00 Intake Total 776.066 ml 2357.376 ml 1251.667 ml Output Total 6750 ml 3725 ml Balance 776.066 ml -4392.624 ml -2473.333 ml medications Current Medications Medications Dose Ordered Sig/Era Route Start Time Stop Time Status Last Admin Dose Admin Pantoprazole Sodium 40 mg DAILY IV 07/07/24 10:00 07/17/24 10:24 40 MG Multivitamins 1 tab DAILY PO 07/07/24 10:00 07/17/24 10:24 1 TAB Acetaminophen 650 mg Q6HP PRN PO 07/06/24 20:15 07/12/24 22:29 650 MG Prochlorperazine Edisylate 5 mg Q4HPRN PRN IV 07/06/24 21:45 07/11/24 14:21 5 MG Nitroglycerin 0.4 mg Q5MINP PRN SL 07/06/24 21:45 Morphine Sulfate 2 mg Q30M PRN IV 07/06/24 21:45 Cancel Morphine Sulfate 2 mg Q30MIN PRN IV 07/07/24 06:45 Cancel Loperamide HCl 2 mg PRN PRN PO 07/08/24 08:45 Hold 07/11/24 03:15 2 MG Morphine Sulfate 2 mg Q30M PRN IV 07/08/24 09:15 07/08/24 15:51 2 MG Al Hydrox/Mg Hydrox/Simethicone 5 ml QID MT 07/08/24 18:00 07/17/24 22:00 5 ML Nystatin 5 ml QID MT 07/08/24 18:00 07/17/24 22:34 5 ML Lorazepam 0.5 mg Q6HP PRN IV 07/09/24 02:30 07/12/24 05:44 0.5 MG Rifampin 300 mg BID PO 07/09/24 22:00 UNV Ethambutol HCl 800 mg DAILY PO 07/09/24 15:45 07/17/24 10:25 800 MG Hydrocortisone Sodium Succinate 100 mg Q12HR IV 07/10/24 10:00 07/17/24 22:34 100 MG Diphenoxylate HCl/ Atropine 2.5 mg Q12HP PRN PO 07/11/24 13:30 07/12/24 05:44 2.5 MG Midazolam HCl 50 ml @ 1 mls/hr Q24H IV 07/12/24 10:30 07/17/24 19:35 13 MLS/HR Fentanyl Citrate 250 ml @ 2.5 mls/hr Q24H IV 07/12/24 10:30 07/17/24 13:28 20 MLS/HR Phenylephrine HCl 250 ml @ 30 mls/hr Q8H20M IV 07/12/24 10:30 07/13/24 14:47 48.75 MLS/HR Vasopressin 20 units/Sodium Chloride 100 ml @ 9 mls/hr Q11H7M IV 07/12/24 17:30 07/15/24 21:27 9 MLS/HR Amino Acids 0 ml @ 0 mls/hr PER PHARMACY IV 07/12/24 17:30 Diagnostic Test (Pha) 1 strip Q6HR 07/13/24 00:00 07/17/24 18:07 1 STRIP Insulin Human Regular FOLLOW SLIDING SCALE Q6HR SC 07/13/24 00:00 07/17/24 18:13 4 UNITS Dextrose 50 ml UD IV 07/12/24 17:45 07/12/24 23:52 50 ML Sodium Chloride 10 ml QSHIFT@10,22 IV 07/12/24 22:00 07/17/24 22:35 10 ML Acetaminophen 650 mg Q6HP PRN SC 07/13/24 08:30 Trimethoprim/ Sulfamethoxazole 0 ml @ 0 mls/hr PER PHARMACY IV 07/13/24 08:30 Trimethoprim/ Sulfamethoxazole 20 ml/Dextrose 520 ml @ 346.667 mls/hr Q8HR IV 07/13/24 12:00 07/17/24 22:34 346.667 MLS/HR Norepinephrine Bitartrate 32 mg/ Sodium Chloride 250 ml @ 0.938 mls/ hr Q24H IV 07/13/24 21:00 07/17/24 12:30 2.813 MLS/HR Insulin Human (Reg)/Sodium Chloride 100 ml @ 0.5 mls/hr Q24H IV 07/14/24 11:15 UNV Diagnostic Test (Pha) 1 strip Q90MIN 07/14/24 12:00 UNV Dextrose 50 ml PRN PRN IV 07/14/24 11:15 UNV Insulin Glargine 15 units DAILY SC 07/15/24 10:00 UNV Sodium Bicarbonate 75 ml/ Dextrose 1,075 ml @ 100 mls/hr [id number] IV 07/14/24 14:30 Cancel Amikacin Sulfate 0 ml @ 0 mls/hr PER PHARMACY IV 07/15/24 18:30 Meropenem 50 ml @ 17 mls/hr Q8HR IV 07/15/24 22:00 07/17/24 22:35 17 MLS/HR Amikacin Sulfate 1000 mg/Dextrose 104 ml @ 104 mls/hr DAILY@1000 IV 07/17/24 10:00 07/17/24 09:59 104 MLS/HR Fat Emulsion Intravenous 100 ml/Potassium Chloride 50 meq/ Potassium Phosphate 22 meq/ Calcium Gluconate 2.3 meq/Magnesium Sulfate 12 meq/ Multivitamins 10 ml/Chromium/ Copper/Manganese/ Zinc 1 ml/Amino Acids/Dextrose 1,448.9462 ml @ 60 mls/hr Q24H9M IV 07/17/24 22:00 07/18/24 21:59 07/17/24 22:41 60 MLS/HR Cholestyramine Resin 4 gm DAILYP PRN PO 07/18/24 08:00 objective GENERAL: Ill appearing, intubated on ventilator. EYES: PERRL, EOMI. Anicteric. HENT: Moist mucous membranes. LUNGS: Decreased breath sounds. CARDIOVASCULAR: Regular rate and rhythm. ABDOMEN: Soft, nontender and nondistended. EXTREMITIES: 4+ BLE pitting edema. SKIN: Warm, dry. laboratory and microbiology Laboratory Tests 07/17/24 04:25 Test 07/17/24 04:25 Range/Units Serum Glucose 156 H 74-106 mg/dL Problem List Sinus rhythm with bigeminy PVCs. Nonsustained V-tach. Chronic HFmrEF, NYHA class III. History of pericardial effusion. Septic shock. Acute hypoxic respiratory failure. Pneumonia. HIV. Severe anemia. Thrombocytopenia. History of mycobacterium avium complex (MAC). Thyroid disease. Tobacco use. Assessment/Plan Continued all current supportive medical care. IV antibiotics as ordered. Morphine for pain management. GI prophylactics. Nitro SL. Vasopressor for hemodynamic support. Additional plan as per the hospital course. Critical care time of 45 minutes provided to include time spent evaluation of patient at bedside, when appropriate patient/family education for diagnosis, treatment plan, review of pertinent medical information and discussion of care with specialty providers and PCP. Mechanical ventilator parameters, treatment and adjustments have personally been reviewed by me and treatment plan by paper final inspector has also been reviewed. Dietary Evaluation Review Recommendations by RD: Increase Calorie Intake, Protein Supplementation Comments: Pt meets criteria for Severe Protein-Calorie Malnutrition in the setting of chronic illness based on severe weight loss (26.2kg/34.6% in 3 months) and moderate muscle wasting(triceps & shoulder). Nutrition Recommendation: 1. Liberalize to regular diet to minimize food restriction 2. Appetite stimulant daily 3. Ensure Enlive 240 ml TID (ordered per ONS protocol) Expected Outcomes/Goals: To maintain/gain weight To meet at least 75% estimated needs Fu 3-5 days Interpretation of weight loss: >7.5% in 3 months Muscle Mass (Severe): Mod to Severe Depletion Protein Calorie Malnutrition: Severe Is there a minimum of two crit: Yes Plan discussed with: Other CC Plasma Assessment Blood Product Administration S: [id number] ABBY GANT MD Jul 17, 2024 22:53
[2024-07-18] VITALS (110 sets, daily range): BP systolic 91–280; BP diastolic 48–257; PULSE 76–131; RESP 17–38; TEMP 98.2–100; O2SAT 91–100
[2024-07-18 07:48] LABS: Alkaline Phosphatase 74 U/L (46-116); Anion Gap 7 (5-15); Aspartate Aminotransferase 23 U/L (13-40); BUN/Creatinine Ratio 63.2 (10.0-20.0); Blood Urea Nitrogen 12 mg/dL (9-23); Chloride 107 mmol/L (98-107); Magnesium 1.8 mg/dL (1.6-2.6); Potassium 3.7 mmol/L (3.5-5.1)
[2024-07-18 07:49] LABS: Bilirubin, Total 0.3 mg/dL (0.2-1.0); Phosphorus 3.2 mg/dL (2.4-5.1)
[2024-07-18 07:51] LABS: Alanine Aminotransferase < 9 U/L (7-40); Albumin 1.9 g/dL (3.2-4.8); Calcium 7.5 mg/dL (8.7-10.4); Carbon Dioxide 33 mmol/L (20-31); Glucose 160 mg/dL (74-106); Sodium 147 mmol/L (136-145); Total Protein 3.9 g/dL (5.7-8.2)
[2024-07-18] MEDS ORDERED: CHOLESTYRAMINE 4 GM POWDER PO PRN (08:00)
[2024-07-18 08:39] LABS: Base Excess 9.3 mmol/L (-2.0-3.0)
[2024-07-18 09:51] LABS: White Blood Cell 2.7 10^3/uL (4.4-10.8)
[2024-07-18 09:52] LABS: Hematocrit 23.4 % (36.0-46.0); Hemoglobin 7.8 g/dL (12.2-16.2); Mean Corpuscular Hemoglobin 29.8 pg (28.0-32.0); Mean Corpuscular Hgb Conc. 33.5 g/dL (32.0-36.0); Mean Corpuscular Volume 88.9 fL (80.0-100.0); Red Blood Cells 2.63 10^6/uL (4.0-5.20); Red Cell Distribution Width 17.2 % (11.8-14.3)
[2024-07-18 10:04] LABS: Band Neutrophils % (manual) 0; Basophils % (manual) 0 (0.0-2.0); Blast Cells 0; Eosinophils % (manual) 0 (0-7); Metamyelocytes % 0; Myelocytes % 0; Promyelocytes % 0; Reactive Lymphocytes 0
--- NOTE | 2024-07-18 10:13 | DVHCONRES ---
Date Seen: Jul 18, 2024 Resident Creating Document: AIDAN SALAZAR RESIDENT Referring Physician Dr. Goetz resident Reason for Consultation Possible diabetes insipidus History of Present Illness Patient is a 28 year old female with multiple medical history including HIV with non compliant to antiretroviral therapy, MAC, multiple blood transfusion presented to the ED on 07/06/2024 with a chief complaint of generalized weakness, flu like symptom for 7 days and greenish watery diarrhea for 4 days. Patient's symptoms worsened and she started having chest pain as well.Chest pain was non- radiation, but it was associated with shortness of breath. In the ED, her initial vitals were temp: 99.3, pulse: 140, 139, RR: 16,221 and blood pressure of 75/42-121/64. The patient became more short of breath and developed acute metabolic encephalopathy that was needed emergent intubation. Patient was seen and examined on the bedside. She is on mechanical ventilation with FiO2 30%, tidal volume 450 mL, PEEP 5 and respiratory rate 21. Family History: Patient reports no known family medical history. Allergies: Coded Allergies: NO KNOWN ALLERGIES (Unverified , 10/22/20) Home Meds Active Scripts Sulfamethoxazole W/Trimethopri (Bactrim Ds Tablet) 1 Tab Tb, 2 TAB PO Q8HR for 21 Days, #126 TAB Prov:MAXIM NIELSEN PAC 07/08/23 Benzonatate (Benzonatate) 100 Mg Cap, 1-2 CAP PO Q4HR, #60 CAP Prov:MAXIM NIELSEN PAC 07/08/23 Permethrin (Elimite) 5 % Cre, 1 APPLIC TOP ONCE, #60 GRAMS 1 Refill Prov:TONY NAVARRO 05/13/22 Cephalexin ( Keflex 500) 500 Mg Cap, 1 CAP PO QID, #40 CAP Prov:TONY NAVARRO 05/13/22 Sulfamethoxazole W/Trimethopri (Bactrim Ds Tablet) 1 Tab Tb, 1 TAB PO BID for 10 Days, #20 TAB Prov:TONY NAVARRO 05/13/22 Ibuprofen (Ibuprofen) 800 Mg Tab, 1 TAB PO TID, #30 TAB Prov:TONY NAVARRO 05/13/22 Clindamycin Hcl (Clindamycin Hcl) 300 Mg Cap, 1 CAP PO TID for 10 Days, #21 CAP 0 Refills Prov:AMAYA SÁNCHEZ 11/19/21 Reported Medications Veytbmbavbu-Naudiuwtgnyno-Otwl (Biktarvy 50-200-25 mg) 1 Tab Tab, 1 TAB PO, TAB 07/11/24 Levothyroxine Sodium (SYNTHROID) 100 Mcg/5 Ml Ij, 100 MCG IV, INJ 07/11/24 Midodrine HCl (Midodrine HCl) 10 Mg Tab, 10 MG GT, TAB 07/11/24 Azithromycin (Azithromycin) 500 Mg Tab, 500 MG PO DAILY 07/11/24 Sulfamethoxazole-Trimethoprim (Bactrim) 1 Tab Tab, 1 TAB PO DAILY, MG 07/11/24 Ethambutol Hcl (Ethambutol Hcl) 400 Mg Tab, 1200 MG PO DAILY, MG 07/11/24 Vit W/ Ferrous Fumara ( One Daily) Daily Tab, 1 TAB PO DAILY, #90 TAB 3 Refills 10/22/20 Emtricitabine-Tenofovir Disopr (Truvada) Tab, 1 TAB PO DAILY, #30 TAB 2 Refills 10/22/20 Current Medications Current Medications Medications (Trade) Dose Ordered Sig/Era Route PRN Reason Start Time Stop Time Status Last Admin Fat Emulsion Intravenous 100 ml/Potassium Chloride 50 meq/ Potassium Phosphate 22 meq/ Calcium Gluconate 2.3 meq/Magnesium Sulfate 12 meq/ Multivitamins 10 ml/Chromium/ Copper/Manganese/ Zinc 1 ml/Amino Acids/Dextrose 1,448.9462 ml @ 60 mls/hr Q24H9M IV 07/17/24 22:00 07/18/24 21:59 07/17/24 22:41 Cholestyramine Resin (Questran Powder) 4 gm DAILYP PRN PO FOR DIARRHEA 07/18/24 08:00 Review of Systems ROS could not be assessed as patient is intubated and mechanically ventilated Vital Signs Vital Signs Date Time Temp Pulse Resp B/P (MAP) Pulse Ox O2 Delivery O2 Flow Rate FiO2 07/18/24 09:57 101 20 121/62 (81) 97 30 07/18/24 08:00 Mechanical Ventilator+ 07/18/24 06:45 99.1 210.4 Physical Exam General: RASS -3, afebrile, mucosae are moist Cardiovascular: Normal S1 and S2. No murmurs, gallops or rubs Respiratory: Mechanically assisted ventilation, equal bilateral airway entree. Clear lung sounds on auscultation Abdomen: Soft, nontender, no organomegaly, normal bowel sounds MSK/skin: Mobilization of limbs cannot be evaluated. Skin is dry and warm. Bilateral edema 2+ Neurological: Orientation cannot be assessed. No apparent motor no sensitive deficits. Pupils are isocoric and reactive Labs/Diagnostic Data Labs Test 07/18/24 10:06 07/18/24 09:35 07/18/24 08:09 07/18/24 06:57 Range/Units White Blood Count 2.7 L 4.4-10.8 10^3/uL Red Blood Count 2.63 L 4.0-5.20 10^6/uL Hemoglobin 7.8 L 12.2-16.2 g/dL Hematocrit 23.4 L 36.0-46.0 % Mean Corpuscular Volume 88.9 80.0-100.0 fL Mean Corpuscular Hemoglobin 29.8 28.0-32.0 pg Mean Corpuscular Hemoglobin Concent 33.5 32.0-36.0 g/dL Red Cell Distribution Width 17.2 H 11.8-14.3 % Platelet Count 140-450 10^3/uL Mean Platelet Volume 9.6 6.9-10.8 fL Neutrophils (%) (Auto) 37.0-80.0 % Lymphocytes (%) (Auto) 10.0-50.0 % Monocytes (%) (Auto) 0.0-12.0 % Basophils (%) (Auto) 0.0-2.0 % Neutrophils # (Auto) 1.6-8.6 10 ^3/uL Lymphocytes # (Auto) 0.4-5.4 10 ^3/uL Monocytes # (Auto) 0-1.3 10 ^3/uL Blood Gas Specimen Type Arterial Blood Gas Sample Site Right radial Blood Gas Patient Temperature 37.0 Arterial Blood Date Drawn [id number] Arterial Blood pH 7.495 H 7.350-7.450 Arterial Blood Partial Pressure CO2 44.4 32.0-45.0 mmHg Arterial Blood Partial Pressure O2 105.2 83.0-108.0 mmHg Arterial Blood HCO3 33.5 H 21.0-28.0 mmol/L Arterial Blood Oxygen Saturation 96.9 94.0-98.0 % Arterial Blood Base Excess 9.3 H -2.0-3.0 mmol/L Arterial Blood Oxyhemoglobin 93.7 L 94.0-98.0 % Arterial Blood Carboxyhemoglobin 2.2 H 0.5-1.5 % Arterial Blood Methemoglobin 1.1 0.0-1.5 % Jhonathan Test Modified Blood Gas Total Hemoglobin 8.60 L 12.0-16.0 g/dL Blood Gas Set Respiration Rate 20.0 Blood Gas Modality Vent - ac Blood Gas Spontaneous Rate 20 FiO2 % 30.0 Blood Gas Tidal Volume 450.0 Blood Gas PEEP or CPAP 5.0 Specimen Drawn By Estelita hankins Sodium Level 147 H 136-145 mmol/L Potassium Level 3.7 3.5-5.1 mmol/L Chloride Level 107 98-107 mmol/L Carbon Dioxide Level 33 H 20-31 mmol/L Anion Gap 7 5-15 Blood Urea Nitrogen 12 9-23 mg/dL Creatinine 0.19 L 0.550-1.02 mg/dL Glomerular Filtration Rate Calc 164 >90 mL/min BUN/Creatinine Ratio 63.2 H 10.0-20.0 Serum Glucose 160 H 74-106 mg/dL Calcium Level 7.5 L 8.7-10.4 mg/dL Phosphorus Level 3.2 2.4-5.1 mg/dL Magnesium Level 1.8 1.6-2.6 mg/dL Total Bilirubin 0.3 0.2-1.0 mg/dL Aspartate Amino Transferase (AST) 23 13-40 U/L Alanine Aminotransferase (ALT) < 9 7-40 U/L Alkaline Phosphatase 74 46-116 U/L Total Protein 3.9 L 5.7-8.2 g/dL Albumin 1.9 L 3.2-4.8 g/dL Test 07/18/24 05:01 07/17/24 13:00 07/17/24 04:25 07/16/24 18:09 Range/Units POC Glucose 130 H 70-106 mg/dl Evan Cells Few Serum Osmolality 306 H 278-298 mOsm/kg Anisocytosis (manual) Slight Test 07/16/24 07:37 07/16/24 05:47 07/15/24 02:00 07/13/24 20:07 Range/Units Blood Gas Critical Value Read Back Yes Blood Gas Notified Whom Malini mroan md Blood Gas Notified Time [id number] Blood Gas Notified By Darlene enriquez B-Type Natriuretic Peptide 1692.66 0-100 pg/mL Random Amikacin Level 5.6 1.0-30.0 ug/mL Triglycerides Level 321 H < 150 mg/dL Cholesterol Level < 50.0 < 200 mg/dL LDL Cholesterol 7 < 100 mg/dL HDL Cholesterol < 5 L 40-59 mg/dL Thyroid Stimulating Hormone (TSH) 3.58 0.55-4.78 uIU/mL Nucleated Red Blood Cells 3.0 % Test 07/12/24 10:18 07/12/24 03:57 07/10/24 08:08 07/08/24 22:00 Range/Units Blood Gas Liter Flow 5.00 Eosinophils (%) (Auto) 0.2 0.0-7.0 % Eosinophils # (Auto) 0 0-0.8 10 ^3/uL Basophils # (Auto) 0 0-0.2 10 ^3/uL Venous Blood pH 7.332 7.320-7.430 Venous Blood pCO2 at Patient Temp 25.6 L 38.0-54.0 mmHg Venous Blood pO2 at Patient Temp < 36.5 23.0-48.0 mmHg Venous Blood HCO3 13.3 L 22.0-29.0 mmol/L Venous Blood Base Excess -10.7 L -2.0-3.0 mmol/L Stool Occult Blood Positive Negative Stool Occult Blood Sample #3 Negative Test 07/08/24 08:34 07/08/24 04:20 07/07/24 09:40 07/06/24 21:10 Range/Units Erythrocyte Sedimentation Rate 9 0-20 mm/hr C-Reactive Protein High Sensitivity 8.58 H <1.0 mg/dL Urine Color Light-yellow Yellow Urine Clarity Hazy H Clear Urine pH 6.0 5.0-9.0 Urine Specific [place] 1.010 1.001-1.035 Urine Protein Trace H Negative Urine Ketones Negative Negative Urine Blood Negative Negative /uL Urine Nitrite Negative Negative Urine Bilirubin Negative Negative Urine Urobilinogen Normal Negative mg/dL Urine Leukocyte Esterase 2+ Negative /uL Urine RBC 2 0 - 4 /hpf Urine Microscopic WBC 6 H 0-5 /HPF Urine Squamous Epithelial Cells Few <5 /hpf Urine Bacteria Few H None Seen /hpf Urine Hyaline Casts Few 0 - 2 /lpf Urine Yeast with Hyphae Present /hpf Urine Yeast (Budding) Occasional None Seen /hpf Urine Glucose Normal Normal mg/dL Troponin I High Sensitivity < 3 L </=34 ng/L Test 07/06/24 20:11 07/06/24 18:30 07/06/24 18:21 Range/Units Lactic Acid Level 1.5 0.4-2.0 mmol/L Stool for White Cells Few Lipase 20 12-53 U/L Microbiology Date/Time Source Procedure Growth Status 07/17/24 13:00 Lung Pending Resulted 07/17/24 13:00 Lung Pending Resulted 07/17/24 13:00 Lung Pending Resulted 07/17/24 13:00 Lung Pending Resulted 07/17/24 13:00 Lung - Final See Separate Report... Resulted 07/12/24 06:15 Sputum Gram Stain - Final Complete 07/12/24 06:15 Respiratory Culture - Final Staphylococcus haemolyticus Complete 07/09/24 17:00 Urine - [place] Urine Culture - Final Complete 07/06/24 18:30 Stool Clostridium difficile Toxin Assay - Final Complete 07/06/24 18:21 Blood Blood Culture - Final NO GROWTH AFTER 5 DAYS OF INCUBATION. Complete Assessment Assessment: # HIV with noncompliant to anti-retroviral medication # Severe pancytopenia in the setting of HIV/AIDS # Septic shock # PCP pneumonia # MAC # Opportunistic infection # Volume overload # Hypoalbuminemia # Hypernatremia # Acute hypoxic respiratory failure Plan/ Recommendation: - High urine osmolality and in the setting of volume overload highly unlikely diabetes insipidus - Stop vasopressin if not needed for pressure support - Trending urine osmolality daily - Ordered urine protein to creatinine ratio to rule out nephrotic range of proteinuria. - IV Lasix 20 mg daily - IV albumin 25% at 100 mL/hours for Q 8 hours - Strict I&O - continue IV antibiotic as per primary team - We will follow this patient Plan discussed with Dr. Amaya Plan discussed with: Other (RN) AIDAN SALAZAR RESIDENT Jul 18, 2024 10:13
[2024-07-18 10:40] LABS: INR 1.15 (0.9-1.15); Partial Thromboplastin Time 31.5 SEC (24.5-34.5)
--- NOTE | 2024-07-18 10:54 | DVH ---
CHEST RADIOGRAPH Indication: reassess Technique: Frontal view of the chest. Comparison: XY CHEST PORTABLE on DOS: 07/17/24, XY CHEST PORTABLE on DOS: 07/16/24, XY CHEST PORTABLE on DOS: 07/15/24, XY CHEST PORTABLE on DOS: 07/14/24, XY CHEST PORTABLE on DOS: 07/13/24, XY CHEST PORTABLE o n DOS: 07/17/24 FINDINGS: HEART: Cardiomegaly with pulmonary congestion and edema. Superimposed pneumonia cannot be excluded. MEDIASTINUM: Unremarkable. Normal mediastinal contour. BONES/JOINTS: Unremarkable. No acute fracture. TUBES, LINES AND DEVICES: The endotracheal tube (ETT) is in satisfactory position. Enteric tube ti p cannot be seen but is below the diaphragm. IMPRESSION: Cardiomegaly with pulmonary congestion and edema. Superimposed pneumonia cannot be excluded.
[2024-07-18] MEDS: DEXMEDETOMIDINE HCL IN D5W 100 ML IV SCH (11:45)
[2024-07-18 12:10] LABS: Lymphocytes % (manual) 7 (10.0-50.0); Monocytes % (manual) 3 (0-12)
[2024-07-18 12:15] LABS: Platelet Estimate Markedly Decreased
[2024-07-18 12:19] LABS: Platelet Count (auto) 29 10^3/uL (140-450)
[2024-07-18 13:24] LABS: Creatinine, Urine 25.7 mg/dL (30.0-125.0)
--- NOTE | 2024-07-18 15:19 | DVHPN2 ---
Progress Note - Dictate Date Seen: Jul 18, 2024 Medical Necessity Reason Pt with a Central, PICC or Fol: Yes The following are medically ne: PICC Line, Díaz Catheter Reason for díaz catheter: Strict I&O Subjective Patient was seen and evaluated in follow up in the ICU . Patient is intubated and sedated on ventilator. 30% FiO2. Patient is receiving TPN at 60 ml/hr. WBC 2.7, HGB 7.8, HCT 23.4, PT 12, NA 147, CO2 33, CA 7.5. Chest x-ray shows cardiomegaly with pulmonary congestion and edema. vital signs Vital Sign Date Time Temp Pulse Resp B/P (MAP) Pulse Ox O2 Delivery O2 Flow Rate FiO2 07/18/24 12:02 104 20 102/48 (66) 91 30 07/18/24 12:00 Mechanical Ventilator+ 07/18/24 11:45 99.1 210.4 Total Intake and Output 07/17/24 07/17/24 07/18/24 15:00 23:00 07:00 Intake Total 1095.147 ml 1464.938 ml 1768.125 ml Output Total 1240 ml 350 ml Balance 1095.147 ml 224.938 ml 1418.125 ml medications Current Medications Medications Dose Ordered Sig/Era Route Start Time Stop Time Status Last Admin Dose Admin Pantoprazole Sodium 40 mg DAILY IV 07/07/24 10:00 07/18/24 10:16 40 MG Multivitamins 1 tab DAILY PO 07/07/24 10:00 07/18/24 12:22 1 TAB Acetaminophen 650 mg Q6HP PRN PO 07/06/24 20:15 07/12/24 22:29 650 MG Prochlorperazine Edisylate 5 mg Q4HPRN PRN IV 07/06/24 21:45 07/11/24 14:21 5 MG Nitroglycerin 0.4 mg Q5MINP PRN SL 07/06/24 21:45 Morphine Sulfate 2 mg Q30M PRN IV 07/06/24 21:45 Cancel Morphine Sulfate 2 mg Q30MIN PRN IV 07/07/24 06:45 Cancel Loperamide HCl 2 mg PRN PRN PO 07/08/24 08:45 Hold 07/11/24 03:15 2 MG Morphine Sulfate 2 mg Q30M PRN IV 07/08/24 09:15 07/08/24 15:51 2 MG Al Hydrox/Mg Hydrox/Simethicone 5 ml QID MT 07/08/24 18:00 07/18/24 12:22 5 ML Nystatin 5 ml QID MT 07/08/24 18:00 07/18/24 12:21 5 ML Lorazepam 0.5 mg Q6HP PRN IV 07/09/24 02:30 07/12/24 05:44 0.5 MG Rifampin 300 mg BID PO 07/09/24 22:00 UNV Ethambutol HCl 800 mg DAILY PO 07/09/24 15:45 07/18/24 10:16 800 MG Hydrocortisone Sodium Succinate 100 mg Q12HR IV 07/10/24 10:00 07/18/24 10:16 100 MG Diphenoxylate HCl/ Atropine 2.5 mg Q12HP PRN PO 07/11/24 13:30 07/12/24 05:44 2.5 MG Midazolam HCl 50 ml @ 1 mls/hr Q24H IV 07/12/24 10:30 07/18/24 12:21 15 MLS/HR Fentanyl Citrate 250 ml @ 2.5 mls/hr Q24H IV 07/12/24 10:30 07/18/24 11:02 25 MLS/HR Phenylephrine HCl 250 ml @ 30 mls/hr Q8H20M IV 07/12/24 10:30 07/13/24 14:47 48.75 MLS/HR Vasopressin 20 units/Sodium Chloride 100 ml @ 9 mls/hr Q11H7M IV 07/12/24 17:30 07/15/24 21:27 9 MLS/HR Amino Acids 0 ml @ 0 mls/hr PER PHARMACY IV 07/12/24 17:30 Diagnostic Test (Pha) 1 strip Q6HR 07/13/24 00:00 07/18/24 11:08 1 STRIP Insulin Human Regular FOLLOW SLIDING SCALE Q6HR SC 07/13/24 00:00 07/17/24 18:13 4 UNITS Dextrose 50 ml UD IV 07/12/24 17:45 07/12/24 23:52 50 ML Sodium Chloride 10 ml QSHIFT@10,22 IV 07/12/24 22:00 07/18/24 10:17 10 ML Acetaminophen 650 mg Q6HP PRN DC 07/13/24 08:30 Trimethoprim/ Sulfamethoxazole 0 ml @ 0 mls/hr PER PHARMACY IV 07/13/24 08:30 Trimethoprim/ Sulfamethoxazole 20 ml/Dextrose 520 ml @ 346.667 mls/hr Q8HR IV 07/13/24 12:00 07/18/24 05:08 346.667 MLS/HR Norepinephrine Bitartrate 32 mg/ Sodium Chloride 250 ml @ 0.938 mls/ hr Q24H IV 07/13/24 21:00 07/17/24 12:30 2.813 MLS/HR Insulin Human (Reg)/Sodium Chloride 100 ml @ 0.5 mls/hr Q24H IV 07/14/24 11:15 UNV Diagnostic Test (Pha) 1 strip Q90MIN 07/14/24 12:00 UNV Dextrose 50 ml PRN PRN IV 07/14/24 11:15 UNV Insulin Glargine 15 units DAILY SC 07/15/24 10:00 UNV Sodium Bicarbonate 75 ml/ Dextrose 1,075 ml @ 100 mls/hr [id number] IV 07/14/24 14:30 Cancel Amikacin Sulfate 0 ml @ 0 mls/hr PER PHARMACY IV 07/15/24 18:30 Meropenem 50 ml @ 17 mls/hr Q8HR IV 07/15/24 22:00 07/18/24 05:07 17 MLS/HR Amikacin Sulfate 1000 mg/Dextrose 104 ml @ 104 mls/hr DAILY@1000 IV 07/17/24 10:00 07/18/24 10:24 104 MLS/HR Fat Emulsion Intravenous 100 ml/Potassium Chloride 50 meq/ Potassium Phosphate 22 meq/ Calcium Gluconate 2.3 meq/Magnesium Sulfate 12 meq/ Multivitamins 10 ml/Chromium/ Copper/Manganese/ Zinc 1 ml/Amino Acids/Dextrose 1,448.9462 ml @ 60 mls/hr Q24H9M IV 07/17/24 22:00 07/18/24 21:59 07/17/24 22:41 60 MLS/HR Cholestyramine Resin 4 gm DAILYP PRN PO 07/18/24 08:00 Fat Emulsion Intravenous 30 ml/ Potassium Chloride 50 meq/ Potassium Phosphate 40 meq/ Calcium Gluconate 2.3 meq/Magnesium Sulfate 16 meq/ Multivitamins 10 ml/Chromium/ Copper/Manganese/ Zinc 1 ml/Amino Acids/Dextrose 1,184.0371 ml @ 49 mls/hr [id number] IV 07/18/24 22:00 07/19/24 21:59 objective GENERAL: Ill appearing, intubated on ventilator. EYES: PERRL, EOMI. Anicteric. HENT: Moist mucous membranes. LUNGS: Decreased breath sounds. CARDIOVASCULAR: Regular rate and rhythm. ABDOMEN: Soft, nontender and nondistended. EXTREMITIES: 4+ BLE pitting edema. SKIN: Warm, dry. laboratory and microbiology Laboratory Tests 07/18/24 09:35 07/18/24 06:57 Test 07/18/24 06:57 Range/Units Serum Glucose 160 H 74-106 mg/dL Problem List Sinus rhythm with bigeminy PVCs. Nonsustained V-tach. Chronic HFmrEF, NYHA class III. History of pericardial effusion. Septic shock. Acute hypoxic respiratory failure. Pneumonia. HIV. Severe anemia. Thrombocytopenia. History of mycobacterium avium complex (MAC). Thyroid disease. Tobacco use. Assessment/Plan Continued all current supportive medical care. IV antibiotics as ordered. Morphine for pain management. GI prophylactics. Nitro SL. Vasopressor for hemodynamic support. Additional plan as per the hospital course. Critical care time of 45 minutes provided to include time spent evaluation of patient at bedside, when appropriate patient/family education for diagnosis, treatment plan, review of pertinent medical information and discussion of care with specialty providers and PCP. Mechanical ventilator parameters, treatment and adjustments have personally been reviewed by me and treatment plan by low voltage technician has also been reviewed. Dietary Evaluation Review Recommendations by RD: Increase Calorie Intake, Protein Supplementation Comments: Pt meets criteria for Severe Protein-Calorie Malnutrition in the setting of chronic illness based on severe weight loss (26.2kg/34.6% in 3 months) and moderate muscle wasting(triceps & shoulder). Nutrition Recommendation: 1. Liberalize to regular diet to minimize food restriction 2. Appetite stimulant daily 3. Ensure Enlive 240 ml TID (ordered per [facility]NS protocol) Expected Outcomes/Goals: To maintain/gain weight To meet at least 75% estimated needs Fu 3-5 days Interpretation of weight loss: >7.5% in 3 months Muscle Mass (Severe): Mod to Severe Depletion Protein Calorie Malnutrition: Severe Is there a minimum of two crit: Yes Plan discussed with: Other CC Plasma Assessment Blood Product Administration S: [id number] ABBY GANT MD Jul 18, 2024 13:34
[2024-07-18] MEDS: FUROSEMIDE 20 MG/2 ML VIAL IV ONE (15:53)
[2024-07-18] MEDS: ALBUMIN 25% 50 ML IV SCH (15:53)
[2024-07-18 16:35] LABS: Protein, Urine 245.1 mg/dL (1-14)
--- NOTE | 2024-07-18 16:36 | DVHPNRES ---
Progress Note Date Seen: Jul 18, 2024 Resident Creating Document: KADEEM CROCKETT RESIDENT Medical Necessity Reason Pt with a Central, PICC or Fol: Yes The following are medically ne: PICC Line, Díaz Catheter Reason for díaz catheter: Strict I&O Medical Necessity Reason Patient seen and examined today at bedside. She remains intubated and on levophed, fentanyl and midazolam. She also receives nutrition via TPN. For antibiotics, She is currently on Amikacin, meropenem and bactrim. Vitals are prettey stable. Temp ranging from 99.1-99.3, Pulse: 95-130, RR: 19-25. Patient is s/p 1 unit of platelets. Cxr stills shows some congestion. On Tuesday07/15/2024, patient has over 10L of urine. Her CMP today shows hypernatremia ( Na: 147). Serum osmolality 306,Urine osmolality L 562, Urine na: 39, urine creatinine: 25.70. Nephrology consult for the further evaluation. Of note, patient's A- line was removed and she bled quiet a bit about 150-200ml. Subjective Review of Systems Intubated and sedated. Objective vital signs Vital Sign Date Time Temp Pulse Resp B/P (MAP) Pulse Ox O2 Delivery O2 Flow Rate FiO2 07/18/24 15:53 108/57 07/18/24 15:00 89 20 99 30 07/18/24 15:00 99.7 211.5 07/18/24 14:00 Mechanical Ventilator+ Total Intake and Output 07/17/24 07/17/24 07/18/24 15:00 23:00 07:00 Intake Total 1095.147 ml 1464.938 ml 1863.625 ml Output Total 1240 ml 350 ml Balance 1095.147 ml 224.938 ml 1513.625 ml medications Current Medications Medications Dose Ordered Sig/Era Route Start Time Stop Time Status Last Admin Dose Admin Pantoprazole Sodium 40 mg DAILY IV 07/07/24 10:00 07/18/24 10:16 40 MG Multivitamins 1 tab DAILY PO 07/07/24 10:00 07/18/24 12:22 1 TAB Acetaminophen 650 mg Q6HP PRN PO 07/06/24 20:15 07/12/24 22:29 650 MG Prochlorperazine Edisylate 5 mg Q4HPRN PRN IV 07/06/24 21:45 07/11/24 14:21 5 MG Nitroglycerin 0.4 mg Q5MINP PRN SL 07/06/24 21:45 Morphine Sulfate 2 mg Q30M PRN IV 07/06/24 21:45 Cancel Morphine Sulfate 2 mg Q30MIN PRN IV 07/07/24 06:45 Cancel Loperamide HCl 2 mg PRN PRN PO 07/08/24 08:45 Hold 07/11/24 03:15 2 MG Morphine Sulfate 2 mg Q30M PRN IV 07/08/24 09:15 07/08/24 15:51 2 MG Al Hydrox/Mg Hydrox/Simethicone 5 ml QID MT 07/08/24 18:00 07/18/24 12:22 5 ML Nystatin 5 ml QID MT 07/08/24 18:00 07/18/24 12:21 5 ML Lorazepam 0.5 mg Q6HP PRN IV 07/09/24 02:30 07/12/24 05:44 0.5 MG Rifampin 300 mg BID PO 07/09/24 22:00 UNV Ethambutol HCl 800 mg DAILY PO 07/09/24 15:45 07/18/24 10:16 800 MG Hydrocortisone Sodium Succinate 100 mg Q12HR IV 07/10/24 10:00 07/18/24 10:16 100 MG Diphenoxylate HCl/ Atropine 2.5 mg Q12HP PRN PO 07/11/24 13:30 07/12/24 05:44 2.5 MG Midazolam HCl 50 ml @ 1 mls/hr Q24H IV 07/12/24 10:30 07/18/24 15:47 15 MLS/HR Fentanyl Citrate 250 ml @ 2.5 mls/hr Q24H IV 07/12/24 10:30 07/18/24 11:02 25 MLS/HR Phenylephrine HCl 250 ml @ 30 mls/hr Q8H20M IV 07/12/24 10:30 07/13/24 14:47 48.75 MLS/HR Vasopressin 20 units/Sodium Chloride 100 ml @ 9 mls/hr Q11H7M IV 07/12/24 17:30 07/15/24 21:27 9 MLS/HR Amino Acids 0 ml @ 0 mls/hr PER PHARMACY IV 07/12/24 17:30 Diagnostic Test (Pha) 1 strip Q6HR 07/13/24 00:00 07/18/24 11:08 1 STRIP Insulin Human Regular FOLLOW SLIDING SCALE Q6HR SC 07/13/24 00:00 07/17/24 18:13 4 UNITS Dextrose 50 ml UD IV 07/12/24 17:45 07/12/24 23:52 50 ML Sodium Chloride 10 ml QSHIFT@10,22 IV 07/12/24 22:00 07/18/24 10:17 10 ML Acetaminophen 650 mg Q6HP PRN [place] 07/13/24 08:30 Trimethoprim/ Sulfamethoxazole 0 ml @ 0 mls/hr PER PHARMACY IV 07/13/24 08:30 Trimethoprim/ Sulfamethoxazole 20 ml/Dextrose 520 ml @ 346.667 mls/hr Q8HR IV 07/13/24 12:00 07/18/24 14:15 346.667 MLS/HR Norepinephrine Bitartrate 32 mg/ Sodium Chloride 250 ml @ 0.938 mls/ hr Q24H IV 07/13/24 21:00 07/17/24 12:30 2.813 MLS/HR Insulin Human (Reg)/Sodium Chloride 100 ml @ 0.5 mls/hr Q24H IV 07/14/24 11:15 UNV Diagnostic Test (Pha) 1 strip Q90MIN 07/14/24 12:00 UNV Dextrose 50 ml PRN PRN IV 07/14/24 11:15 UNV Insulin Glargine 15 units DAILY SC 07/15/24 10:00 UNV Sodium Bicarbonate 75 ml/ Dextrose 1,075 ml @ 100 mls/hr [id number] IV 07/14/24 14:30 Cancel Amikacin Sulfate 0 ml @ 0 mls/hr PER PHARMACY IV 07/15/24 18:30 Meropenem 50 ml @ 17 mls/hr Q8HR IV 07/15/24 22:00 07/18/24 15:25 17 MLS/HR Amikacin Sulfate 1000 mg/Dextrose 104 ml @ 104 mls/hr DAILY@1000 IV 07/17/24 10:00 07/18/24 10:24 104 MLS/HR Fat Emulsion Intravenous 100 ml/Potassium Chloride 50 meq/ Potassium Phosphate 22 meq/ Calcium Gluconate 2.3 meq/Magnesium Sulfate 12 meq/ Multivitamins 10 ml/Chromium/ Copper/Manganese/ Zinc 1 ml/Amino Acids/Dextrose 1,448.9462 ml @ 60 mls/hr Q24H9M IV 07/17/24 22:00 07/18/24 21:59 07/17/24 22:41 60 MLS/HR Cholestyramine Resin 4 gm DAILYP PRN PO 07/18/24 08:00 Fat Emulsion Intravenous 30 ml/ Potassium Chloride 50 meq/ Potassium Phosphate 40 meq/ Calcium Gluconate 2.3 meq/Magnesium Sulfate 16 meq/ Multivitamins 10 ml/Chromium/ Copper/Manganese/ Zinc 1 ml/Amino Acids/Dextrose 1,184.0371 ml @ 49 mls/hr [id number] IV 07/18/24 22:00 07/19/24 21:59 Albumin Human 50 ml @ 100 mls/hr Q8H IV 07/18/24 15:45 07/19/24 08:14 07/18/24 15:53 100 MLS/HR Examination General Appearance: intubated and sedated, cachetic looking , muscle wasting, petechiae HEENT: Atraumatic Lungs/chest: petechiae noted on her right shoulders / clavicle; aeration improved. Cardiovascular: Normal S1, Normal S2, some episodes of V-tach Musculoskeletal: Normal sensory function, Normal motor function Neuro: unable to access, waking up Skin: Dry, Generalized gross edema Psych/Mental Status: Unable to access laboratory and microbiology Laboratory Tests 07/18/24 09:35 07/18/24 06:57 Test 07/18/24 06:57 Range/Units Serum Glucose 160 H 74-106 mg/dL Microbiology Date/Time Source Procedure Growth Status 07/17/24 13:00 Lung Pending Resulted 07/17/24 13:00 Lung Pending Resulted 07/17/24 13:00 Lung Pending Resulted 07/17/24 13:00 Lung Pending Resulted 07/17/24 13:00 Lung - Final See Separate Report... Resulted 07/17/24 13:00 Bronchial Washings AFB Broth Culture Pending Resulted 07/17/24 13:00 Bronchial Washings - Final Resulted 07/17/24 13:00 Bronchial Washings - Final Resulted 07/17/24 13:00 Bronchial Washings Acid Fast Bacilli Culture Pending Resulted 07/09/24 17:00 Urine - Dí[place] Urine Culture - Final Complete 07/06/24 18:30 Stool Clostridium difficile Toxin Assay - Final Complete 07/06/24 18:21 Blood Blood Culture - Final NO GROWTH AFTER 5 DAYS OF INCUBATION. Complete Problem List/Assessment/Plan Problem List/Assessment/Plan Assessment and plan NEUROLOGY: Acute metabolic encephalopathy Intubated CARDIOVASCULAR Severe hypovolemia Sinus rhythm with bigeminy PVCs. Nonsustained V-tach. Chronic HFmrEF, NYHA class III. History of pericardial effusion. Cardiology following Transthoracic echocardiogram performed on 04/30/2024 reveals EF 48% with mild global pericardial effusion. We will repeat echocardiogram to reassess pericardial effusion. Unable to initiate guideline directed medical therapy for CHF given that patient is on multiple vasopressors RESPIRATORY Pneumocystis jiroveci pneumonia Acute hypoxic respiratory failure. Pneumonia PLAN: Hydrocordone succinate For bronchoscopy once the family aggress LP as well. Will need to transfuse 2 units of plate prior to bronchoscopy GASTROINTESTINAL FOBT positive, rule out GI Bleed rule out colitis Diarrhea Hepatosplenomegaly Lymphadenopathy GI following Patient not stable for colonoscopy. Also patient refused all procedures Compazine HEMATOLOGY Severe pancytopenia in the setting of HIV/AIDS Hepatosplenomegaly Lymphadenopathy Severe thrombocytopenia, plt 29 ( after 1 unit transfusion) INFECTIOUS DISEASE HIV/AIDS MAC/MITCH Opportunistic infection CMV Septic Shock Possible tuberculosis (TB) infection Possible Histoplasma infection Possible cytomegalovirus (CMV) infection Possible Cryptococcus infection Positive hepatitis B core antibody Continue Meropenem, Amikacin, Bactrim ID following METABOLIC Cachexia Hyponatremia Severe protein calorie malnutrition SKIN Muscle wasting, Temporal Bilateral legs edema, third spacing Nephrology Consult IV access: [place]: removed today. PICC line: left arm 07/12/2024: Fentanyl, midazolam, NE; Sedation holiday ( half doses of each), precedex prn to start weaning Midline: right arm: 07/13/2024, Meropenem, Amikacin, Bactrim Drips: Fentanyl, midazolam, NE Diet: TPN per pharmacy DVT prophylaxis: SCD, platelet low plan: SEDATION HOLIDAY Precedex prn continue antibiotic Code status: full Critical care time 45 minutes Advance care discussed with family Case discussed with Dri. Estevez Plan discussed with: Other (Sister and Nurse) My Orders My Orders Orders - KADEEM CROCKETT RESIDENT Procedure Category Date Status Time *[facility]. [facility] CONS 07/18/24 Transmitted -[place] 07:21 Chest Xray 1 View XY 07/18/24 Resulted 08:45 Pheresis Platelets BBK 07/18/24 Logged 09:49 Dietary Evaluation Review Recommendations by RD: Increase Calorie Intake, Protein Supplementation Comments: Pt meets criteria for Severe Protein-Calorie Malnutrition in the setting of chronic illness based on severe weight loss (26.2kg/34.6% in 3 months) and moderate muscle wasting(triceps & shoulder). Nutrition Recommendation: 1. Liberalize to regular diet to minimize food restriction 2. Appetite stimulant daily 3. Ensure Enlive 240 ml TID (ordered per ONS protocol) Expected Outcomes/Goals: To maintain/gain weight To meet at least 75% estimated needs Fu 3-5 days Interpretation of weight loss: >7.5% in 3 months Muscle Mass (Severe): Mod to Severe Depletion Protein Calorie Malnutrition: Severe Is there a minimum of two crit: Yes CC Plasma Assessment Blood Product Administration S: 13:40 Date of Service: Jul 18, 2024 Billing Provider: CARYL ESTEVEZ MD Common Visit Codes: NOT BILLABLE KADEEM CROCKETT RESIDENT Jul 18, 2024 16:36 CARYL ESTEVEZ MD Jul 21, 2024 12:57
--- NOTE | 2024-07-18 16:37 | DVHPN2 ---
Progress Note - Dictate Date Seen: Jul 18, 2024 Medical Necessity Reason Pt with a Central, PICC or Fol: Yes The following are medically ne: PICC Line, Díaz Catheter Reason for díaz catheter: Strict I&O Subjective Patient seen at bedside in [place] [id number] Patient is intubated sedated Patient had one bowel movement yesterday Patient is being evaluated by Cardiology for cardiac arrhythmias Severe pancytopenia possibly medication effect on bone marrow; concern regarding Bactrim use Patient's pancytopenia is improving, she had 2 packs of [place] [address] Urine culture showed 19479 colony count of Enterococcus species vital signs Vital Sign Date Time Temp Pulse Resp B/P (MAP) Pulse Ox O2 Delivery O2 Flow Rate FiO2 07/18/24 15:53 108/57 07/18/24 15:00 89 20 99 30 07/18/24 15:00 99.7 211.5 07/18/24 14:00 Mechanical Ventilator+ Total Intake and Output 07/17/24 07/17/24 07/18/24 15:00 23:00 07:00 Intake Total 1095.147 ml 1464.938 ml 1863.625 ml Output Total 1240 ml 350 ml Balance 1095.147 ml 224.938 ml 1513.625 ml medications Current Medications Medications Dose Ordered Sig/Era Route Start Time Stop Time Status Last Admin Dose Admin Pantoprazole Sodium 40 mg DAILY IV 07/07/24 10:00 07/18/24 10:16 40 MG Multivitamins 1 tab DAILY PO 07/07/24 10:00 07/18/24 12:22 1 TAB Acetaminophen 650 mg Q6HP PRN PO 07/06/24 20:15 07/12/24 22:29 650 MG Prochlorperazine Edisylate 5 mg Q4HPRN PRN IV 07/06/24 21:45 07/11/24 14:21 5 MG Nitroglycerin 0.4 mg Q5MINP PRN SL 07/06/24 21:45 Morphine Sulfate 2 mg Q30M PRN IV 07/06/24 21:45 Cancel Morphine Sulfate 2 mg Q30MIN PRN IV 07/07/24 06:45 Cancel Loperamide HCl 2 mg PRN PRN PO 07/08/24 08:45 Hold 07/11/24 03:15 2 MG Morphine Sulfate 2 mg Q30M PRN IV 07/08/24 09:15 07/08/24 15:51 2 MG Al Hydrox/Mg Hydrox/Simethicone 5 ml QID MT 07/08/24 18:00 07/18/24 12:22 5 ML Nystatin 5 ml QID MT 07/08/24 18:00 07/18/24 12:21 5 ML Lorazepam 0.5 mg Q6HP PRN IV 07/09/24 02:30 07/12/24 05:44 0.5 MG Rifampin 300 mg BID PO 07/09/24 22:00 UNV Ethambutol HCl 800 mg DAILY PO 07/09/24 15:45 07/18/24 10:16 800 MG Hydrocortisone Sodium Succinate 100 mg Q12HR IV 07/10/24 10:00 07/18/24 10:16 100 MG Diphenoxylate HCl/ Atropine 2.5 mg Q12HP PRN PO 07/11/24 13:30 07/12/24 05:44 2.5 MG Midazolam HCl 50 ml @ 1 mls/hr Q24H IV 07/12/24 10:30 07/18/24 15:47 15 MLS/HR Fentanyl Citrate 250 ml @ 2.5 mls/hr Q24H IV 07/12/24 10:30 07/18/24 11:02 25 MLS/HR Phenylephrine HCl 250 ml @ 30 mls/hr Q8H20M IV 07/12/24 10:30 07/13/24 14:47 48.75 MLS/HR Vasopressin 20 units/Sodium Chloride 100 ml @ 9 mls/hr Q11H7M IV 07/12/24 17:30 07/15/24 21:27 9 MLS/HR Amino Acids 0 ml @ 0 mls/hr PER PHARMACY IV 07/12/24 17:30 Diagnostic Test (Pha) 1 strip Q6HR 07/13/24 00:00 07/18/24 11:08 1 STRIP Insulin Human Regular FOLLOW SLIDING SCALE Q6HR SC 07/13/24 00:00 07/17/24 18:13 4 UNITS Dextrose 50 ml UD IV 07/12/24 17:45 07/12/24 23:52 50 ML Sodium Chloride 10 ml QSHIFT@10,22 IV 07/12/24 22:00 07/18/24 10:17 10 ML Acetaminophen 650 mg Q6HP PRN [place] 07/13/24 08:30 Trimethoprim/ Sulfamethoxazole 0 ml @ 0 mls/hr PER PHARMACY IV 07/13/24 08:30 Trimethoprim/ Sulfamethoxazole 20 ml/Dextrose 520 ml @ 346.667 mls/hr Q8HR IV 07/13/24 12:00 07/18/24 14:15 346.667 MLS/HR Norepinephrine Bitartrate 32 mg/ Sodium Chloride 250 ml @ 0.938 mls/ hr Q24H IV 07/13/24 21:00 07/17/24 12:30 2.813 MLS/HR Insulin Human (Reg)/Sodium Chloride 100 ml @ 0.5 mls/hr Q24H IV 07/14/24 11:15 UNV Diagnostic Test (Pha) 1 strip Q90MIN 07/14/24 12:00 UNV Dextrose 50 ml PRN PRN IV 07/14/24 11:15 UNV Insulin Glargine 15 units DAILY SC 07/15/24 10:00 UNV Sodium Bicarbonate 75 ml/ Dextrose 1,075 ml @ 100 mls/hr [id number] IV 07/14/24 14:30 Cancel Amikacin Sulfate 0 ml @ 0 mls/hr PER PHARMACY IV 07/15/24 18:30 Meropenem 50 ml @ 17 mls/hr Q8HR IV 07/15/24 22:00 07/18/24 15:25 17 MLS/HR Amikacin Sulfate 1000 mg/Dextrose 104 ml @ 104 mls/hr DAILY@1000 IV 07/17/24 10:00 07/18/24 10:24 104 MLS/HR Fat Emulsion Intravenous 100 ml/Potassium Chloride 50 meq/ Potassium Phosphate 22 meq/ Calcium Gluconate 2.3 meq/Magnesium Sulfate 12 meq/ Multivitamins 10 ml/Chromium/ Copper/Manganese/ Zinc 1 ml/Amino Acids/Dextrose 1,448.9462 ml @ 60 mls/hr Q24H9M IV 07/17/24 22:00 07/18/24 21:59 07/17/24 22:41 60 MLS/HR Cholestyramine Resin 4 gm DAILYP PRN PO 07/18/24 08:00 Fat Emulsion Intravenous 30 ml/ Potassium Chloride 50 meq/ Potassium Phosphate 40 meq/ Calcium Gluconate 2.3 meq/Magnesium Sulfate 16 meq/ Multivitamins 10 ml/Chromium/ Copper/Manganese/ Zinc 1 ml/Amino Acids/Dextrose 1,184.0371 ml @ 49 mls/hr [id number] IV 07/18/24 22:00 07/19/24 21:59 Albumin Human 50 ml @ 100 mls/hr Q8H IV 07/18/24 15:45 07/19/24 08:14 07/18/24 15:53 100 MLS/HR objective General: NAD, AAOX3; intubated sedated, mild pallor Chest: lung lobo clear to auscultation Heart: RRR, no murmur Abdomen: non-distended, no tenderness to palpation, +BS laboratory and microbiology Laboratory Tests 07/18/24 09:35 07/18/24 06:57 Test 07/18/24 06:57 Range/Units Serum Glucose 160 H 74-106 mg/dL Problems(with codes): (1) History of HIV or AIDS (2) Pneumocystis jiroveci pneumonia (3) Opportunistic infection (4) Anemia (5) Pancytopenia (6) HIV (human immunodeficiency virus infection) Prognosis Plan Hold cholestyramine and Lomotil and only use as needed Continue IV TPN;IV PPI Protonix 40 mg daily ID consult to re-evaluate her antibiotic use and see if IV Bactrim can be DC ID consult also to evaluate if possibly patient can be started on low-dose methylprednisolone Transfused 2 packs of platelets Patient will be undergoing a weaning trial Overall short-term and long-term prognosis remains guarded Dietary Evaluation Review Recommendations by RD: Increase Calorie Intake, Protein Supplementation Comments: Pt meets criteria for Severe Protein-Calorie Malnutrition in the setting of chronic illness based on severe weight loss (26.2kg/34.6% in 3 months) and moderate muscle wasting(triceps & shoulder). Nutrition Recommendation: 1. Liberalize to regular diet to minimize food restriction 2. Appetite stimulant daily 3. Ensure Enlive 240 ml TID (ordered per ONS protocol) Expected Outcomes/Goals: To maintain/gain weight To meet at least 75% estimated needs Fu 3-5 days Interpretation of weight loss: >7.5% in 3 months Muscle Mass (Severe): Mod to Severe Depletion Protein Calorie Malnutrition: Severe Is there a minimum of two crit: Yes Plan discussed with: Other ([facility] Nurse and Dr Miller) CC Plasma Assessment Blood Product Administration S: 13:40 JAMESON KIM MD Jul 18, 2024 16:37
[2024-07-18 16:38] LABS: Creatinine, Urine 25.39 mg/dL (30.0-125.0); Urine Protein/Creatinine Ratio 9.65
[2024-07-18] MEDS: TPN*HIGH CONC* PER PHARMACY IV NR (22:24)
[2024-07-19] VITALS (96 sets, daily range): BP systolic 89–160; BP diastolic 54–97; PULSE 79–124; RESP 15–47; TEMP 97.7–99.3; O2SAT 84–100
--- NOTE | 2024-07-19 05:36 | DVH ---
EXAM: XR Chest, 1 View CLINICAL INDICATION: protocol TECHNIQUE: Frontal view of the chest. COMPARISON: XY CHEST XRAY 1 VIEW on DOS: 07/18/24, XY CHEST PORTABLE on DOS: 07/17/24, XY CHEST ILSA BLE on DOS: 07/16/24, XY CHEST PORTABLE on DOS: 07/15/24, XY CHEST PORTABLE on DOS: 07/14/24 FINDINGS: LUNGS AND PLEURAL SPACES: Stable interstitial opacity. No pneumothorax. HEART: Unremarkable. No cardiomegaly. MEDIASTINUM: Unremarkable. Normal mediastinal contour. BONES/JOINTS: Unremarkable. No acute fracture. TUBES, LINES AND DEVICES: The endotracheal tube (ETT) is in satisfactory position. Left peripheral ly inserted central catheter (PICC) tip in the superior vena cava. Enteric tube tip in the stomach. OTHER FINDINGS: . . . IMPRESSION: No significant change from the prior exam.
[2024-07-19 07:14] LABS: Basophils # (auto) 0 10 ^3/uL (0-0.2); Eosinophils # (auto) 0 10 ^3/uL (0-0.8); Eosinophils % (auto) 0.2 % (0.0-7.0); Lymphocytes # (auto) 0.2 10 ^3/uL (0.4-5.4); Mean Corpuscular Hemoglobin 30.4 pg (28.0-32.0); Monocytes # (auto) 0 10 ^3/uL (0-1.3); Monocytes % (auto) 1.4 % (0.0-12.0); Red Blood Cells 2.25 10^6/uL (4.0-5.20)
[2024-07-19 07:16] LABS: Alanine Aminotransferase 22 U/L (7-40); Anion Gap 6 (5-15); Basophils % (auto) 0.2 % (0.0-2.0); Bilirubin, Total 0.5 mg/dL (0.2-1.0); Blood Urea Nitrogen 15 mg/dL (9-23); Chloride 104 mmol/L (98-107); Hematocrit 20.3 % (36.0-46.0); Lymphocytes % (auto) 6.8 % (10.0-50.0); Magnesium 1.8 mg/dL (1.6-2.6); Mean Corpuscular Hgb Conc. 33.7 g/dL (32.0-36.0); Mean Corpuscular Volume 90.4 fL (80.0-100.0); Neutrophils # (auto) 2.7 10 ^3/uL (1.6-8.6); Neutrophils % (auto) 91.4 % (37.0-80.0); Nucleated Red Blood Cells % 0.8 %; Phosphorus 3.6 mg/dL (2.4-5.1); Red Cell Distribution Width 18.1 % (11.8-14.3); Sodium 142 mmol/L (136-145)
[2024-07-19 07:18] LABS: Albumin 2.1 g/dL (3.2-4.8); Aspartate Aminotransferase 45 U/L (13-40); Calcium 7.3 mg/dL (8.7-10.4); Carbon Dioxide 32 mmol/L (20-31); Glucose 147 mg/dL (74-106); Total Protein 4.1 g/dL (5.7-8.2)
[2024-07-19 07:21] LABS: Hemoglobin 6.8 g/dL (12.2-16.2); Platelet Count (auto) 17 10^3/uL (140-450)
[2024-07-19 07:43] LABS: Alkaline Phosphatase 166 U/L (46-116)
[2024-07-19 07:57] LABS: Base Excess 7.6 mmol/L (-2.0-3.0)
--- NOTE | 2024-07-19 11:20 | DVHPN2 ---
Progress Note Date Seen: Jul 19, 2024 Resident Creating Document: AIDAN SALAZAR RESIDENT Medical Necessity Reason Pt with a Central, PICC or Fol: Yes The following are medically ne: PICC Line, Díaz Catheter Reason for díaz catheter: Strict I&O Subjective Review of Systems Patient is a 28 year old female with multiple medical history including HIV with non compliant to antiretroviral therapy, MAC, multiple blood transfusion presented to the ED on 07/06/2024 with a chief complaint of generalized weakness, flu like symptom for 7 days and greenish watery diarrhea for 4 days. Patient's symptoms worsened and she started having chest pain as well.Chest pain was non- radiation, but it was associated with shortness of breath. In the ED, her initial vitals were temp: 99.3, pulse: 140, 139, RR: 16,221 and blood pressure of 75/42-121/64. The patient became more short of breath and developed acute metabolic encephalopathy that was needed emergent intubation. Patient was seen and examined on the bedside. She is on mechanical ventilation with FiO2 30%, tidal volume 450 mL, PEEP 5 and respiratory rate 21. Objective vital signs Vital Sign Date Time Temp Pulse Resp B/P (MAP) Pulse Ox O2 Delivery O2 Flow Rate FiO2 07/19/24 10:30 97.9 80 23 136/81 (99) 99 208.2 07/19/24 10:01 35 07/19/24 10:00 Mechanical Ventilator+ Total Intake and Output 07/18/24 07/18/24 07/19/24 15:00 23:00 07:00 Intake Total 884.500 ml 1490.300 ml 1878.311 ml Output Total 1700 ml 650 ml Balance 884.500 ml -209.700 ml 1228.311 ml medications Current Medications Medications Dose Ordered Sig/Era Route Start Time Stop Time Status Last Admin Dose Admin Pantoprazole Sodium 40 mg DAILY IV 07/07/24 10:00 07/19/24 08:21 40 MG Multivitamins 1 tab DAILY PO 07/07/24 10:00 07/19/24 08:21 1 TAB Acetaminophen 650 mg Q6HP PRN PO 07/06/24 20:15 07/12/24 22:29 650 MG Prochlorperazine Edisylate 5 mg Q4HPRN PRN IV 07/06/24 21:45 07/11/24 14:21 5 MG Nitroglycerin 0.4 mg Q5MINP PRN SL 07/06/24 21:45 Morphine Sulfate 2 mg Q30M PRN IV 07/06/24 21:45 Cancel Morphine Sulfate 2 mg Q30MIN PRN IV 07/07/24 06:45 Cancel Loperamide HCl 2 mg PRN PRN PO 07/08/24 08:45 Hold 07/11/24 03:15 2 MG Morphine Sulfate 2 mg Q30M PRN IV 07/08/24 09:15 07/08/24 15:51 2 MG Al Hydrox/Mg Hydrox/Simethicone 5 ml QID MT 07/08/24 18:00 07/19/24 05:16 5 ML Nystatin 5 ml QID MT 07/08/24 18:00 07/19/24 05:16 5 ML Lorazepam 0.5 mg Q6HP PRN IV 07/09/24 02:30 07/12/24 05:44 0.5 MG Rifampin 300 mg BID PO 07/09/24 22:00 UNV Ethambutol HCl 800 mg DAILY PO 07/09/24 15:45 07/19/24 08:21 800 MG Hydrocortisone Sodium Succinate 100 mg Q12HR IV 07/10/24 10:00 07/19/24 08:21 100 MG Diphenoxylate HCl/ Atropine 2.5 mg Q12HP PRN PO 07/11/24 13:30 07/12/24 05:44 2.5 MG Midazolam HCl 50 ml @ 1 mls/hr Q24H IV 07/12/24 10:30 07/19/24 05:43 8 MLS/HR Fentanyl Citrate 250 ml @ 2.5 mls/hr Q24H IV 07/12/24 10:30 07/19/24 05:22 17.5 MLS/HR Phenylephrine HCl 250 ml @ 30 mls/hr Q8H20M IV 07/12/24 10:30 07/13/24 14:47 48.75 MLS/HR Vasopressin 20 units/Sodium Chloride 100 ml @ 9 mls/hr Q11H7M IV 07/12/24 17:30 07/15/24 21:27 9 MLS/HR Amino Acids 0 ml @ 0 mls/hr PER PHARMACY IV 07/12/24 17:30 Diagnostic Test (Pha) 1 strip Q6HR 07/13/24 00:00 07/19/24 10:55 1 STRIP Insulin Human Regular FOLLOW SLIDING SCALE Q6HR SC 07/13/24 00:00 07/19/24 00:27 4 UNITS Dextrose 50 ml UD IV 07/12/24 17:45 07/12/24 23:52 50 ML Sodium Chloride 10 ml QSHIFT@10,22 IV 07/12/24 22:00 07/19/24 08:22 10 ML Acetaminophen 650 mg Q6HP PRN RI 07/13/24 08:30 Trimethoprim/ Sulfamethoxazole 0 ml @ 0 mls/hr PER PHARMACY IV 07/13/24 08:30 Trimethoprim/ Sulfamethoxazole 20 ml/Dextrose 520 ml @ 346.667 mls/hr Q8HR IV 07/13/24 12:00 07/19/24 05:16 346.667 MLS/HR Norepinephrine Bitartrate 32 mg/ Sodium Chloride 250 ml @ 0.938 mls/ hr Q24H IV 07/13/24 21:00 07/17/24 12:30 2.813 MLS/HR Insulin Human (Reg)/Sodium Chloride 100 ml @ 0.5 mls/hr Q24H IV 07/14/24 11:15 UNV Diagnostic Test (Pha) 1 strip Q90MIN 07/14/24 12:00 UNV Dextrose 50 ml PRN PRN IV 07/14/24 11:15 UNV Insulin Glargine 15 units DAILY SC 07/15/24 10:00 UNV Sodium Bicarbonate 75 ml/ Dextrose 1,075 ml @ 100 mls/hr [id number] IV 07/14/24 14:30 Cancel Amikacin Sulfate 0 ml @ 0 mls/hr PER PHARMACY IV 07/15/24 18:30 Meropenem 50 ml @ 17 mls/hr Q8HR IV 07/15/24 22:00 07/19/24 05:16 17 MLS/HR Cholestyramine Resin 4 gm DAILYP PRN PO 07/18/24 08:00 Fat Emulsion Intravenous 30 ml/ Potassium Chloride 50 meq/ Potassium Phosphate 40 meq/ Calcium Gluconate 2.3 meq/Magnesium Sulfate 16 meq/ Multivitamins 10 ml/Chromium/ Copper/Manganese/ Zinc 1 ml/Amino Acids/Dextrose 1,184.0371 ml @ 49 mls/hr [id number] IV 07/18/24 22:00 07/19/24 21:59 07/18/24 22:24 49 MLS/HR Fat Emulsion Intravenous 30 ml/ Potassium Chloride 40 meq/ Potassium Phosphate 22 meq/ Calcium Gluconate 4.65 meq/ Magnesium Sulfate 18 meq/ Multivitamins 10 ml/Chromium/ Copper/Manganese/ Zinc 1 ml/Amino Acids/Dextrose 1,230.5 ml @ 51 mls/hr Q24H8M IV 07/19/24 22:00 07/20/24 21:59 Examination Physical Exam General: RASS -3, afebrile, mucosae are moist Cardiovascular: Normal S1 and S2. No murmurs, gallops or rubs Respiratory: Mechanically assisted ventilation, equal bilateral airway entree. Clear lung sounds on auscultation Abdomen: Soft, nontender, no organomegaly, normal bowel sounds MSK/skin: Mobilization of limbs cannot be evaluated. Skin is dry and warm. Bilateral edema 2+ Neurological: Orientation cannot be assessed. No apparent motor no sensitive deficits. Pupils are isocoric and reactive laboratory and microbiology Laboratory Tests 07/19/24 06:42 Test 07/19/24 06:42 Range/Units Serum Glucose 147 H 74-106 mg/dL Microbiology Date/Time Source Procedure Growth Status 07/17/24 13:00 Lung Pending Resulted 07/17/24 13:00 Lung Pending Resulted 07/17/24 13:00 Lung Pending Resulted 07/17/24 13:00 Lung Pending Resulted 07/17/24 13:00 Lung - Final See Separate Report... Resulted 07/17/24 13:00 Bronchial Washings AFB Broth Culture Pending Resulted 07/17/24 13:00 Bronchial Washings - Final Resulted 07/17/24 13:00 Bronchial Washings - Final Resulted 07/17/24 13:00 Bronchial Washings Acid Fast Bacilli Culture Pending Resulted 07/09/24 17:00 Urine - Díaz Port Urine Culture - Final Complete 07/06/24 18:30 Stool Clostridium difficile Toxin Assay - Final Complete 07/06/24 18:21 Blood Blood Culture - Final NO GROWTH AFTER 5 DAYS OF INCUBATION. 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 # Septic shock # PCP pneumonia # MAC # Opportunistic infection # Volume overload # Hypoalbuminemia # Hypernatremia # Acute hypoxic respiratory failure Plan/ Recommendation: - High urine osmolality and in the setting of volume overload highly unlikely diabetes insipidus - Stop vasopressin if not needed for pressure support - Trending urine osmolality daily - Ordered urine protein to creatinine ratio to rule out nephrotic range of proteinuria. - IV Lasix 40 mg daily - IV albumin 25% at 100 mL/hours for Q 8 hours - Strict I&O - continue IV antibiotic as per primary team - We will follow this patient Plan discussed with Dr. Amaya Plan discussed with: Patient, Other (RN) My Orders My Orders Orders - AIDAN SALAZAR RESIDENT Procedure Category Date Status Time Osmolality Urine LAB 07/19/24 Logged 08:41 Dietary Evaluation Review Recommendations by RD: Increase Calorie Intake, Protein Supplementation Comments: Pt meets criteria for Severe Protein-Calorie Malnutrition in the setting of chronic illness based on severe weight loss (26.2kg/34.6% in 3 months) and moderate muscle wasting(triceps & shoulder). Nutrition Recommendation: 1. Liberalize to regular diet to minimize food restriction 2. Appetite stimulant daily 3. Ensure Enlive 240 ml TID (ordered per ONS protocol) Expected Outcomes/Goals: To maintain/gain weight To meet at least 75% estimated needs Fu 3-5 days Interpretation of weight loss: >7.5% in 3 months Muscle Mass (Severe): Mod to Severe Depletion Protein Calorie Malnutrition: Severe Is there a minimum of two crit: Yes CC Plasma Assessment Blood Product Administration S: 13:40 AIDAN SALAZAR RESIDENT Jul 19, 2024 11:20
[2024-07-19 11:38] LABS: Base Excess 9.5 mmol/L (-2.0-3.0)
[2024-07-19] MEDS: FUROSEMIDE 40 MG/4 ML VIAL IV ONE ×2 (12:35→16:56)
[2024-07-19] MEDS: LORazepam 2MG/ML-1ML VIAL IV PRN ×2 (13:56→18:34)
[2024-07-19 15:31] LABS: Basophils # (auto) 0 10 ^3/uL (0-0.2); Basophils % (auto) 0.1 % (0.0-2.0); Eosinophils # (auto) 0 10 ^3/uL (0-0.8); Eosinophils % (auto) 0.1 % (0.0-7.0); Lymphocytes # (auto) 0.2 10 ^3/uL (0.4-5.4); Monocytes # (auto) 0 10 ^3/uL (0-1.3); Neutrophils # (auto) 2.9 10 ^3/uL (1.6-8.6); White Blood Cell 3.1 10^3/uL (4.4-10.8)
[2024-07-19 15:33] LABS: Hematocrit 23.9 % (36.0-46.0); Lymphocytes % (auto) 5.2 % (10.0-50.0); Mean Corpuscular Hgb Conc. 33.3 g/dL (32.0-36.0); Mean Corpuscular Volume 90.2 fL (80.0-100.0); Neutrophils % (auto) 93.6 % (37.0-80.0); Nucleated Red Blood Cells % 0.8 %; Red Blood Cells 2.65 10^6/uL (4.0-5.20); Red Cell Distribution Width 16.9 % (11.8-14.3)
[2024-07-19] MEDS: MORPHINE SULFATE 4 MG/ML SYR/VIAL IV PRN (15:33)
[2024-07-19 15:50] LABS: Platelet Count (auto) 6 10^3/uL (140-450)
[2024-07-19 15:50] LABS: Triglycerides 117 mg/dL (< 150)
[2024-07-19 16:50] LABS: Platelet Estimate Markedly Decreased
--- NOTE | 2024-07-19 17:51 | DVHPNRES ---
Progress Note Date Seen: Jul 19, 2024 Resident Creating Document: KADEEM CROCKETT RESIDENT Medical Necessity Reason Pt with a Central, PICC or Fol: Yes The following are medically ne: PICC Line, Díaz Catheter Reason for díaz catheter: Strict I&O Medical Necessity Reason Patient seen and examined. she is being weaned. Currently on Precedex only today. All sedatives off. Labs today showed low Hgb ( 6.8) which is expected given her bleeding yesterday. One unit of PRBC transfused. She received a unit of platelets over night and but her platelets later this after read 6. Patient has just been extubated. So far for today, she has had 3 dark brown, bowel movement. Subjective Review of Systems Just extubated Objective vital signs Vital Sign Date Time Temp Pulse Resp B/P (MAP) Pulse Ox O2 Delivery O2 Flow Rate FiO2 07/19/24 16:56 112/69 07/19/24 16:45 97.9 123 35 97 208.2 07/19/24 16:00 Cool Aerosol 8 40 40 Total Intake and Output 07/18/24 07/18/24 07/19/24 15:00 23:00 07:00 Intake Total 884.500 ml 1490.300 ml 1878.311 ml Output Total 1700 ml 650 ml Balance 884.500 ml -209.700 ml 1228.311 ml medications Current Medications Medications Dose Ordered Sig/Era Route Start Time Stop Time Status Last Admin Dose Admin Pantoprazole Sodium 40 mg DAILY IV 07/07/24 10:00 07/19/24 08:21 40 MG Multivitamins 1 tab DAILY PO 07/07/24 10:00 07/19/24 08:21 1 TAB Acetaminophen 650 mg Q6HP PRN PO 07/06/24 20:15 07/12/24 22:29 650 MG Prochlorperazine Edisylate 5 mg Q4HPRN PRN IV 07/06/24 21:45 07/11/24 14:21 5 MG Nitroglycerin 0.4 mg Q5MINP PRN SL 07/06/24 21:45 Morphine Sulfate 2 mg Q30M PRN IV 07/06/24 21:45 Cancel Morphine Sulfate 2 mg Q30MIN PRN IV 07/07/24 06:45 Cancel Loperamide HCl 2 mg PRN PRN PO 07/08/24 08:45 Hold 07/11/24 03:15 2 MG Morphine Sulfate 2 mg Q30M PRN IV 07/08/24 09:15 07/08/24 15:51 2 MG Rifampin 300 mg BID PO 07/09/24 22:00 UNV Ethambutol HCl 800 mg DAILY PO 07/09/24 15:45 07/19/24 08:21 800 MG Hydrocortisone Sodium Succinate 100 mg Q12HR IV 07/10/24 10:00 07/19/24 08:21 100 MG Diphenoxylate HCl/ Atropine 2.5 mg Q12HP PRN PO 07/11/24 13:30 07/12/24 05:44 2.5 MG Midazolam HCl 50 ml @ 1 mls/hr Q24H IV 07/12/24 10:30 07/19/24 05:43 8 MLS/HR Fentanyl Citrate 250 ml @ 2.5 mls/hr Q24H IV 07/12/24 10:30 07/19/24 05:22 17.5 MLS/HR Phenylephrine HCl 250 ml @ 30 mls/hr Q8H20M IV 07/12/24 10:30 07/13/24 14:47 48.75 MLS/HR Vasopressin 20 units/Sodium Chloride 100 ml @ 9 mls/hr Q11H7M IV 07/12/24 17:30 07/15/24 21:27 9 MLS/HR Amino Acids 0 ml @ 0 mls/hr PER PHARMACY IV 07/12/24 17:30 Diagnostic Test (Pha) 1 strip Q6HR 07/13/24 00:00 07/19/24 16:04 1 STRIP Insulin Human Regular FOLLOW SLIDING SCALE Q6HR SC 07/13/24 00:00 07/19/24 00:27 4 UNITS Dextrose 50 ml UD IV 07/12/24 17:45 07/12/24 23:52 50 ML Sodium Chloride 10 ml QSHIFT@10,22 IV 07/12/24 22:00 07/19/24 08:22 10 ML Acetaminophen 650 mg Q6HP PRN OK 07/13/24 08:30 Trimethoprim/ Sulfamethoxazole 0 ml @ 0 mls/hr PER PHARMACY IV 07/13/24 08:30 Trimethoprim/ Sulfamethoxazole 20 ml/Dextrose 520 ml @ 346.667 mls/hr Q8HR IV 07/13/24 12:00 07/19/24 12:34 346.667 MLS/HR Norepinephrine Bitartrate 32 mg/ Sodium Chloride 250 ml @ 0.938 mls/ hr Q24H IV 07/13/24 21:00 07/17/24 12:30 2.813 MLS/HR Insulin Human (Reg)/Sodium Chloride 100 ml @ 0.5 mls/hr Q24H IV 07/14/24 11:15 UNV Diagnostic Test (Pha) 1 strip Q90MIN 07/14/24 12:00 UNV Dextrose 50 ml PRN PRN IV 07/14/24 11:15 UNV Insulin Glargine 15 units DAILY SC 07/15/24 10:00 UNV Sodium Bicarbonate 75 ml/ Dextrose 1,075 ml @ 100 mls/hr [id number] IV 07/14/24 14:30 Cancel Amikacin Sulfate 0 ml @ 0 mls/hr PER PHARMACY IV 07/15/24 18:30 Meropenem 50 ml @ 17 mls/hr Q8HR IV 07/15/24 22:00 07/19/24 12:35 17 MLS/HR Fat Emulsion Intravenous 30 ml/ Potassium Chloride 50 meq/ Potassium Phosphate 40 meq/ Calcium Gluconate 2.3 meq/Magnesium Sulfate 16 meq/ Multivitamins 10 ml/Chromium/ Copper/Manganese/ Zinc 1 ml/Amino Acids/Dextrose 1,184.0371 ml @ 49 mls/hr [id number] IV 07/18/24 22:00 07/19/24 21:59 07/18/24 22:24 49 MLS/HR Fat Emulsion Intravenous 30 ml/ Potassium Chloride 40 meq/ Potassium Phosphate 22 meq/ Calcium Gluconate 4.65 meq/ Magnesium Sulfate 18 meq/ Multivitamins 10 ml/Chromium/ Copper/Manganese/ Zinc 1 ml/Amino Acids/Dextrose 1,230.5 ml @ 51 mls/hr Q24H8M IV 07/19/24 22:00 07/20/24 21:59 Lorazepam 1 mg Q6HP PRN IV 07/19/24 12:00 07/19/24 13:56 1 MG Morphine Sulfate 1 mg Q4HP PRN IV 07/19/24 12:30 07/19/24 15:33 1 MG Cholestyramine Resin 4 gm BID PO 07/19/24 22:00 UNV Examination General Appearance: intubated and sedated, cachetic, muscle wasting, petechiae, temporal muscle wasting HEENT: Atraumatic Lungs/chest: petechiae noted on her right shoulders / clavicle; aeration improved. Cardiovascular: Normal S1, Normal S2, some episodes of V-tach Musculoskeletal: Normal sensory function, Normal motor function Neuro: unable to access, awake Skin: Dry, Generalized gross edema Psych/Mental Status: Unable to access laboratory and microbiology Laboratory Tests 07/19/24 15:18 07/19/24 06:42 Test 07/19/24 06:42 Range/Units Serum Glucose 147 H 74-106 mg/dL Microbiology Date/Time Source Procedure Growth Status 07/17/24 13:00 Lung Pending Resulted 07/17/24 13:00 Lung Pending Resulted 07/17/24 13:00 Lung Pending Resulted 07/17/24 13:00 Lung Pending Resulted 07/17/24 13:00 Lung - Final See Separate Report... Resulted 07/17/24 13:00 Bronchial Washings AFB Broth Culture Pending Resulted 07/17/24 13:00 Bronchial Washings - Final Resulted 07/17/24 13:00 Bronchial Washings - Final Resulted 07/17/24 13:00 Bronchial Washings Acid Fast Bacilli Culture Pending Resulted 07/09/24 17:00 Urine - Díaz Port Urine Culture - Final Complete 07/06/24 18:30 Stool Clostridium difficile Toxin Assay - Final Complete 07/06/24 18:21 Blood Blood Culture - Final NO GROWTH AFTER 5 DAYS OF INCUBATION. Complete Problem List/Assessment/Plan Problem List/Assessment/Plan Assessment and plan NEUROLOGY: Acute metabolic encephalopathy Intubated 07/12/2024 Extubated 07/19/2024 CARDIOVASCULAR Severe hypovolemia Sinus rhythm with bigeminy PVCs. Nonsustained V-tach. Chronic HFmrEF, NYHA class III. History of pericardial effusion. Cardiology following Transthoracic echocardiogram performed on 04/30/2024 reveals EF 48% with mild global pericardial effusion. We will repeat echocardiogram to reassess pericardial effusion. Unable to initiate guideline directed medical therapy for CHF given that patient is on multiple vasopressors RESPIRATORY Pneumocystis jiroveci pneumonia Acute hypoxic respiratory failure. Pneumonia PLAN: Hydrocordone succinate For bronchoscopy once the family aggress LP as well. Will need to transfuse 2 units of plate prior to bronchoscopy GASTROINTESTINAL FOBT positive, rule out GI Bleed rule out colitis Persistent diarrhea Hepatosplenomegaly Lymphadenopathy GI following Patient not stable for colonoscopy. Also patient refused all procedures Compazine Genitourinary nephrotic range urine protein in the setting HIV/AIDS Nephrology following HEMATOLOGY Severe pancytopenia in the setting of HIV/AIDS Hepatosplenomegaly Lymphadenopathy Severe thrombocytopenia, plt 6 ( after receiving the 2 unit last night) plan: ORDER ANOTHER 2 unit platelets INFECTIOUS DISEASE HIV/AIDS MAC/MITCH Opportunistic infection CMV Septic Shock Possible tuberculosis (TB) infection Possible Histoplasma infection Possible cytomegalovirus (CMV) infection Possible Cryptococcus infection Positive hepatitis B core antibody Continue Meropenem, Amikacin, Bactrim ID following METABOLIC Cachexia Hyponatremia Severe protein calorie malnutrition SKIN Muscle wasting, Temporal Bilateral legs edema, third spacing IV access: [place]: removed today. PICC line: left arm 07/12/2024: Fentanyl, midazolam, NE; Sedation holiday ( half doses of each), precedex prn to start weaning; OFF SED off all sedation 07/19/2024 Midline: right arm: 07/13/2024, Meropenem, Amikacin, Bactrim Drips: Fentanyl, midazolam, NE; STOPPED Diet: TPN per pharmacy DVT prophylaxis: SCD, platelet low plan: SEDATION HOLIDAY Precedex prn continue antibiotic Code status: full Critical care time 45 minutes Advance care discussed with family Case discussed with Dri. Estevez Plan discussed with: Patient, Other My Orders My Orders Orders - KADEEM CROCKETT RESIDENT Procedure Category Date Status Time Lorazepam 2mg/Ml Inj PHA 07/19/24 In Process (Ativan Inj) 12:00 Morphine Sulfate PHA 07/19/24 In Process Injection 12:30 Pheresis Platelets BBK 07/19/24 Logged 16:13 Dietary Evaluation Review Recommendations by RD: Increase Calorie Intake, Protein Supplementation Comments: Pt meets criteria for Severe Protein-Calorie Malnutrition in the setting of chronic illness based on severe weight loss (26.2kg/34.6% in 3 months) and moderate muscle wasting(triceps & shoulder). Nutrition Recommendation: 1. Liberalize to regular diet to minimize food restriction 2. Appetite stimulant daily 3. Ensure Enlive 240 ml TID (ordered per ONS protocol) Expected Outcomes/Goals: To maintain/gain weight To meet at least 75% estimated needs Fu 3-5 days Interpretation of weight loss: >7.5% in 3 months Muscle Mass (Severe): Mod to Severe Depletion Protein Calorie Malnutrition: Severe Is there a minimum of two crit: Yes CC Plasma Assessment Blood Product Administration S: 13:40 Date of Service: Jul 19, 2024 Billing Provider: CARYL ESTEVEZ MD Common Visit Codes: NOT BILLABLE KADEEM CROCKETT RESIDENT Jul 19, 2024 17:51 CARYL ESTEVEZ MD Jul 21, 2024 12:58
--- NOTE | 2024-07-19 21:38 | DVHPN2 ---
Progress Note - Dictate Date Seen: Jul 19, 2024 Medical Necessity Reason Pt with a Central, PICC or Fol: Yes The following are medically ne: PICC Line, Díaz Catheter Reason for díaz catheter: Strict I&O Subjective Patient seen at bedside in [place] 261 Patient is awake alert and extubated Patient again had a large loose bowel movement today Pancytopenia is improving vital signs Vital Sign Date Time Temp Pulse Resp B/P (MAP) Pulse Ox O2 Delivery O2 Flow Rate FiO2 07/19/24 21:00 98.8 106 40 109/60 (76) 99 209.8 07/19/24 20:00 Nasal Cannula* 2 28 Total Intake and Output 07/18/24 07/18/24 07/19/24 14:59 22:59 06:59 Intake Total 877.500 ml 1501.300 ml 1903.340 ml Output Total 1700 ml 650 ml Balance 877.500 ml -198.700 ml 1253.340 ml medications Current Medications Medications Dose Ordered Sig/Era Route Start Time Stop Time Status Last Admin Dose Admin Pantoprazole Sodium 40 mg DAILY IV 07/07/24 10:00 07/19/24 08:21 40 MG Multivitamins 1 tab DAILY PO 07/07/24 10:00 07/19/24 08:21 1 TAB Acetaminophen 650 mg Q6HP PRN PO 07/06/24 20:15 07/12/24 22:29 650 MG Prochlorperazine Edisylate 5 mg Q4HPRN PRN IV 07/06/24 21:45 07/11/24 14:21 5 MG Nitroglycerin 0.4 mg Q5MINP PRN SL 07/06/24 21:45 Morphine Sulfate 2 mg Q30M PRN IV 07/06/24 21:45 Cancel Morphine Sulfate 2 mg Q30MIN PRN IV 07/07/24 06:45 Cancel Loperamide HCl 2 mg PRN PRN PO 07/08/24 08:45 Hold 07/11/24 03:15 2 MG Morphine Sulfate 2 mg Q30M PRN IV 07/08/24 09:15 07/08/24 15:51 2 MG Rifampin 300 mg BID PO 07/09/24 22:00 UNV Ethambutol HCl 800 mg DAILY PO 07/09/24 15:45 07/19/24 08:21 800 MG Hydrocortisone Sodium Succinate 100 mg Q12HR IV 07/10/24 10:00 07/19/24 08:21 100 MG Diphenoxylate HCl/ Atropine 2.5 mg Q12HP PRN PO 07/11/24 13:30 07/12/24 05:44 2.5 MG Midazolam HCl 50 ml @ 1 mls/hr Q24H IV 07/12/24 10:30 07/19/24 05:43 8 MLS/HR Fentanyl Citrate 250 ml @ 2.5 mls/hr Q24H IV 07/12/24 10:30 07/19/24 05:22 17.5 MLS/HR Phenylephrine HCl 250 ml @ 30 mls/hr Q8H20M IV 07/12/24 10:30 07/13/24 14:47 48.75 MLS/HR Vasopressin 20 units/Sodium Chloride 100 ml @ 9 mls/hr Q11H7M IV 07/12/24 17:30 07/15/24 21:27 9 MLS/HR Amino Acids 0 ml @ 0 mls/hr PER PHARMACY IV 07/12/24 17:30 Diagnostic Test (Pha) 1 strip Q6HR 07/13/24 00:00 07/19/24 16:04 1 STRIP Insulin Human Regular FOLLOW SLIDING SCALE Q6HR SC 07/13/24 00:00 07/19/24 00:27 4 UNITS Dextrose 50 ml UD IV 07/12/24 17:45 07/12/24 23:52 50 ML Sodium Chloride 10 ml QSHIFT@10,22 IV 07/12/24 22:00 07/19/24 08:22 10 ML Acetaminophen 650 mg Q6HP PRN NC 07/13/24 08:30 Trimethoprim/ Sulfamethoxazole 0 ml @ 0 mls/hr PER PHARMACY IV 07/13/24 08:30 Trimethoprim/ Sulfamethoxazole 20 ml/Dextrose 520 ml @ 346.667 mls/hr Q8HR IV 07/13/24 12:00 07/19/24 12:34 346.667 MLS/HR Norepinephrine Bitartrate 32 mg/ Sodium Chloride 250 ml @ 0.938 mls/ hr Q24H IV 07/13/24 21:00 07/17/24 12:30 2.813 MLS/HR Insulin Human (Reg)/Sodium Chloride 100 ml @ 0.5 mls/hr Q24H IV 07/14/24 11:15 UNV Diagnostic Test (Pha) 1 strip Q90MIN 07/14/24 12:00 UNV Dextrose 50 ml PRN PRN IV 07/14/24 11:15 UNV Insulin Glargine 15 units DAILY SC 07/15/24 10:00 UNV Sodium Bicarbonate 75 ml/ Dextrose 1,075 ml @ 100 mls/hr [id number] IV 07/14/24 14:30 Cancel Amikacin Sulfate 0 ml @ 0 mls/hr PER PHARMACY IV 07/15/24 18:30 Meropenem 50 ml @ 17 mls/hr Q8HR IV 07/15/24 22:00 07/19/24 12:35 17 MLS/HR Fat Emulsion Intravenous 30 ml/ Potassium Chloride 50 meq/ Potassium Phosphate 40 meq/ Calcium Gluconate 2.3 meq/Magnesium Sulfate 16 meq/ Multivitamins 10 ml/Chromium/ Copper/Manganese/ Zinc 1 ml/Amino Acids/Dextrose 1,184.0371 ml @ 49 mls/hr [id number] IV 07/18/24 22:00 07/19/24 21:59 07/18/24 22:24 49 MLS/HR Fat Emulsion Intravenous 30 ml/ Potassium Chloride 40 meq/ Potassium Phosphate 22 meq/ Calcium Gluconate 4.65 meq/ Magnesium Sulfate 18 meq/ Multivitamins 10 ml/Chromium/ Copper/Manganese/ Zinc 1 ml/Amino Acids/Dextrose 1,230.5 ml @ 51 mls/hr Q24H8M IV 07/19/24 22:00 07/20/24 21:59 Cholestyramine Resin 4 gm BID PO 07/19/24 22:00 Lorazepam 2 mg Q4HP PRN IV 07/19/24 18:15 07/19/24 18:34 2 MG Morphine Sulfate 2 mg Q4HP PRN IV 07/19/24 18:15 objective General: NAD, AAOX3; extubated mild pallor Chest: lung lobo clear to auscultation Heart: RRR, no murmur Abdomen: non-distended, no tenderness to palpation, +BS laboratory and microbiology Laboratory Tests 07/19/24 15:18 07/19/24 06:42 Test 07/19/24 06:42 Range/Units Serum Glucose 147 H 74-106 mg/dL Problems(with codes): (1) History of HIV or AIDS (2) Pneumocystis jiroveci pneumonia (3) Opportunistic infection (4) HIV (human immunodeficiency virus infection) (5) Hyponatremia (6) Anemia (7) Pancytopenia (8) Diarrhea Prognosis Plan Resume cholestyramine 4 g packet p.o. daily as a standing order and not as needed Swallow evaluation in the a.m. Continue supportive care Prognosis guarded due to advanced HIV/AIDS ID follow up Dietary Evaluation Review Recommendations by RD: Increase Calorie Intake, Protein Supplementation Comments: Pt meets criteria for Severe Protein-Calorie Malnutrition in the setting of chronic illness based on severe weight loss (26.2kg/34.6% in 3 months) and moderate muscle wasting(triceps & shoulder). Nutrition Recommendation: 1. Liberalize to regular diet to minimize food restriction 2. Appetite stimulant daily 3. Ensure Enlive 240 ml TID (ordered per ONS protocol) Expected Outcomes/Goals: To maintain/gain weight To meet at least 75% estimated needs Fu 3-5 days Interpretation of weight loss: >7.5% in 3 months Muscle Mass (Severe): Mod to Severe Depletion Protein Calorie Malnutrition: Severe Is there a minimum of two crit: Yes Plan discussed with: Patient, Other (ICU Nurse) CC Plasma Assessment Blood Product Administration S: 13:40 JAMESON KIM MD Jul 19, 2024 21:38
[2024-07-19] MEDS: CHOLESTYRAMINE 4 GM POWDER PO SCH (22:00)
--- NOTE | 2024-07-19 23:51 | DVHPN2 ---
Progress Note - Dictate Date Seen: Jul 19, 2024 Medical Necessity Reason Pt with a Central, PICC or Fol: Yes The following are medically ne: PICC Line, Díaz Catheter Reason for díaz catheter: Strict I&O Subjective Patient was seen and evaluated in follow up in the ICU . Patient is intubated and sedated on ventilator. 35% FiO2. Patient undergoing CPAP trial, patient is able to nod head. WBC 3, HGB 6.8, HCT 20.3, CO2 32, CA 7.3, AST 45. Chest x-ray is unchanged. vital signs Vital Sign Date Time Temp Pulse Resp B/P (MAP) Pulse Ox O2 Delivery O2 Flow Rate FiO2 07/19/24 10:30 97.9 80 23 136/81 (99) 99 208.2 07/19/24 10:01 35 07/19/24 10:00 Mechanical Ventilator+ Total Intake and Output 07/18/24 07/18/24 07/19/24 15:00 23:00 07:00 Intake Total 884.500 ml 1490.300 ml 1878.311 ml Output Total 1700 ml 650 ml Balance 884.500 ml -209.700 ml 1228.311 ml medications Current Medications Medications Dose Ordered Sig/Era Route Start Time Stop Time Status Last Admin Dose Admin Pantoprazole Sodium 40 mg DAILY IV 07/07/24 10:00 07/19/24 08:21 40 MG Multivitamins 1 tab DAILY PO 07/07/24 10:00 07/19/24 08:21 1 TAB Acetaminophen 650 mg Q6HP PRN PO 07/06/24 20:15 07/12/24 22:29 650 MG Prochlorperazine Edisylate 5 mg Q4HPRN PRN IV 07/06/24 21:45 07/11/24 14:21 5 MG Nitroglycerin 0.4 mg Q5MINP PRN SL 07/06/24 21:45 Morphine Sulfate 2 mg Q30M PRN IV 07/06/24 21:45 Cancel Morphine Sulfate 2 mg Q30MIN PRN IV 07/07/24 06:45 Cancel Loperamide HCl 2 mg PRN PRN PO 07/08/24 08:45 Hold 07/11/24 03:15 2 MG Morphine Sulfate 2 mg Q30M PRN IV 07/08/24 09:15 07/08/24 15:51 2 MG Al Hydrox/Mg Hydrox/Simethicone 5 ml QID MT 07/08/24 18:00 07/19/24 05:16 5 ML Nystatin 5 ml QID MT 07/08/24 18:00 07/19/24 05:16 5 ML Lorazepam 0.5 mg Q6HP PRN IV 07/09/24 02:30 07/12/24 05:44 0.5 MG Rifampin 300 mg BID PO 07/09/24 22:00 UNV Ethambutol HCl 800 mg DAILY PO 07/09/24 15:45 07/19/24 08:21 800 MG Hydrocortisone Sodium Succinate 100 mg Q12HR IV 07/10/24 10:00 07/19/24 08:21 100 MG Diphenoxylate HCl/ Atropine 2.5 mg Q12HP PRN PO 07/11/24 13:30 07/12/24 05:44 2.5 MG Midazolam HCl 50 ml @ 1 mls/hr Q24H IV 07/12/24 10:30 07/19/24 05:43 8 MLS/HR Fentanyl Citrate 250 ml @ 2.5 mls/hr Q24H IV 07/12/24 10:30 07/19/24 05:22 17.5 MLS/HR Phenylephrine HCl 250 ml @ 30 mls/hr Q8H20M IV 07/12/24 10:30 07/13/24 14:47 48.75 MLS/HR Vasopressin 20 units/Sodium Chloride 100 ml @ 9 mls/hr Q11H7M IV 07/12/24 17:30 07/15/24 21:27 9 MLS/HR Amino Acids 0 ml @ 0 mls/hr PER PHARMACY IV 07/12/24 17:30 Diagnostic Test (Pha) 1 strip Q6HR 07/13/24 00:00 07/19/24 10:55 1 STRIP Insulin Human Regular FOLLOW SLIDING SCALE Q6HR SC 07/13/24 00:00 07/19/24 00:27 4 UNITS Dextrose 50 ml UD IV 07/12/24 17:45 07/12/24 23:52 50 ML Sodium Chloride 10 ml QSHIFT@10,22 IV 07/12/24 22:00 07/19/24 08:22 10 ML Acetaminophen 650 mg Q6HP PRN SD 07/13/24 08:30 Trimethoprim/ Sulfamethoxazole 0 ml @ 0 mls/hr PER PHARMACY IV 07/13/24 08:30 Trimethoprim/ Sulfamethoxazole 20 ml/Dextrose 520 ml @ 346.667 mls/hr Q8HR IV 07/13/24 12:00 07/19/24 05:16 346.667 MLS/HR Norepinephrine Bitartrate 32 mg/ Sodium Chloride 250 ml @ 0.938 mls/ hr Q24H IV 07/13/24 21:00 07/17/24 12:30 2.813 MLS/HR Insulin Human (Reg)/Sodium Chloride 100 ml @ 0.5 mls/hr Q24H IV 07/14/24 11:15 UNV Diagnostic Test (Pha) 1 strip Q90MIN 07/14/24 12:00 UNV Dextrose 50 ml PRN PRN IV 07/14/24 11:15 UNV Insulin Glargine 15 units DAILY SC 07/15/24 10:00 UNV Sodium Bicarbonate 75 ml/ Dextrose 1,075 ml @ 100 mls/hr [id number] IV 07/14/24 14:30 Cancel Amikacin Sulfate 0 ml @ 0 mls/hr PER PHARMACY IV 07/15/24 18:30 Meropenem 50 ml @ 17 mls/hr Q8HR IV 07/15/24 22:00 07/19/24 05:16 17 MLS/HR Cholestyramine Resin 4 gm DAILYP PRN PO 07/18/24 08:00 Fat Emulsion Intravenous 30 ml/ Potassium Chloride 50 meq/ Potassium Phosphate 40 meq/ Calcium Gluconate 2.3 meq/Magnesium Sulfate 16 meq/ Multivitamins 10 ml/Chromium/ Copper/Manganese/ Zinc 1 ml/Amino Acids/Dextrose 1,184.0371 ml @ 49 mls/hr Q19M13M IV 07/18/24 22:00 07/19/24 21:59 07/18/24 22:24 49 MLS/HR Fat Emulsion Intravenous 30 ml/ Potassium Chloride 40 meq/ Potassium Phosphate 22 meq/ Calcium Gluconate 4.65 meq/ Magnesium Sulfate 18 meq/ Multivitamins 10 ml/Chromium/ Copper/Manganese/ Zinc 1 ml/Amino Acids/Dextrose 1,230.5 ml @ 51 mls/hr Q24H8M IV 07/19/24 22:00 07/20/24 21:59 objective GENERAL: Ill appearing, intubated on ventilator. EYES: PERRL, EOMI. Anicteric. HENT: Moist mucous membranes. LUNGS: Decreased breath sounds. CARDIOVASCULAR: Regular rate and rhythm. ABDOMEN: Soft, nontender and nondistended. EXTREMITIES: 4+ BLE pitting edema. SKIN: Warm, dry. laboratory and microbiology Laboratory Tests 07/19/24 06:42 Test 07/19/24 06:42 Range/Units Serum Glucose 147 H 74-106 mg/dL Problem List Sinus rhythm with bigeminy PVCs. Nonsustained V-tach. Chronic HFmrEF, NYHA class III. History of pericardial effusion. Septic shock. Acute hypoxic respiratory failure. Pneumonia. HIV. Severe anemia. Thrombocytopenia. History of mycobacterium avium complex (MAC). Thyroid disease. Tobacco use. Assessment/Plan Continued all current supportive medical care. IV antibiotics as ordered. Morphine for pain management. GI prophylactics. Nitro SL. Vasopressor for hemodynamic support. Additional plan as per the hospital course. Critical care time of 45 minutes provided to include time spent evaluation of patient at bedside, when appropriate patient/family education for diagnosis, treatment plan, review of pertinent medical information and discussion of care with specialty providers and PCP. Mechanical ventilator parameters, treatment and adjustments have personally been reviewed by me and treatment plan by bolt threader has also been reviewed. Dietary Evaluation Review Recommendations by RD: Increase Calorie Intake, Protein Supplementation Comments: Pt meets criteria for Severe Protein-Calorie Malnutrition in the setting of chronic illness based on severe weight loss (26.2kg/34.6% in 3 months) and moderate muscle wasting(triceps & shoulder). Nutrition Recommendation: 1. Liberalize to regular diet to minimize food restriction 2. Appetite stimulant daily 3. Ensure Enlive 240 ml TID (ordered per ONS protocol) Expected Outcomes/Goals: To maintain/gain weight To meet at least 75% estimated needs Fu 3-5 days Interpretation of weight loss: >7.5% in 3 months Muscle Mass (Severe): Mod to Severe Depletion Protein Calorie Malnutrition: Severe Is there a minimum of two crit: Yes Plan discussed with: Other CC Plasma Assessment Blood Product Administration S: 13:40 ABBY GANT MD Jul 19, 2024 11:34
[2024-07-20] VITALS (56 sets, daily range): BP systolic 92–181; BP diastolic 48–106; PULSE 100–145; RESP 22–64; TEMP 98.1–99.1; O2SAT 77–100
[2024-07-20] MEDS: DOXYCYCLINE 100MG/100ML 100 ML IV SCH (00:36)
[2024-07-20] MEDS: MORPHINE SULFATE 4 MG/ML SYR/VIAL IV PRN (01:12)
[2024-07-20] MEDS: TPN*HIGH CONC* PER PHARMACY IV NR (02:29)
[2024-07-20 05:24] LABS: Basophils # (auto) 0 10 ^3/uL (0-0.2); Eosinophils # (auto) 0 10 ^3/uL (0-0.8); Hematocrit 25.5 % (36.0-46.0); Hemoglobin 8.5 g/dL (12.2-16.2); Lymphocytes # (auto) 0.2 10 ^3/uL (0.4-5.4); White Blood Cell 4.3 10^3/uL (4.4-10.8)
[2024-07-20 05:26] LABS: Eosinophils % (auto) 0.1 % (0.0-7.0); Lymphocytes % (auto) 4.3 % (10.0-50.0); Mean Corpuscular Hemoglobin 29.8 pg (28.0-32.0); Mean Corpuscular Hgb Conc. 33.4 g/dL (32.0-36.0); Mean Corpuscular Volume 89.3 fL (80.0-100.0); Monocytes # (auto) 0.1 10 ^3/uL (0-1.3); Monocytes % (auto) 1.3 % (0.0-12.0); Neutrophils # (auto) 4.1 10 ^3/uL (1.6-8.6); Neutrophils % (auto) 94.3 % (37.0-80.0); Nucleated Red Blood Cells % 0.3 %; Red Blood Cells 2.85 10^6/uL (4.0-5.20); Red Cell Distribution Width 17.1 % (11.8-14.3)
[2024-07-20 05:29] LABS: Platelet Count (auto) 16 10^3/uL (140-450); Platelet Estimate Markedly Decreased
[2024-07-20 05:39] LABS: Alanine Aminotransferase 33 U/L (7-40); Anion Gap 7 (5-15); Bilirubin, Total 0.7 mg/dL (0.2-1.0); Chloride 99 mmol/L (98-107); Phosphorus 4.3 mg/dL (2.4-5.1); Sodium 140 mmol/L (136-145)
[2024-07-20 05:40] LABS: Carbon Dioxide 34 mmol/L (20-31); Potassium 3.2 mmol/L (3.5-5.1)
[2024-07-20 05:41] LABS: Albumin 2.4 g/dL (3.2-4.8); Alkaline Phosphatase 172 U/L (46-116); Aspartate Aminotransferase 57 U/L (0-34); Calcium 7.8 mg/dL (8.7-10.4); Glucose 132 mg/dL (74-106); Magnesium 1.6 mg/dL (1.6-2.6); Total Protein 4.6 g/dL (5.7-8.2)
[2024-07-20 05:52] LABS: BUN/Creatinine Ratio 81.8 (10.0-20.0); Blood Urea Nitrogen 18 mg/dL (9-23)
[2024-07-20] MEDS: POTASSIUM CHL 20MEQ/100ML 100 ML IV SCH (07:43)
[2024-07-20] MEDS: methylPREDNISolone SOD SUCC 40 MG/ML VL IV ONE (07:46)
[2024-07-20 08:09] LABS: Base Excess 6.1 mmol/L (-2.0-3.0)
--- NOTE | 2024-07-20 10:37 | DVHPN2 ---
Progress Note Date Seen: Jul 20, 2024 Resident Creating Document: AIDAN SALAZAR RESIDENT Medical Necessity Reason Pt with a Central, PICC or Fol: Yes The following are medically ne: PICC Line, Díaz Catheter Reason for díaz catheter: Strict I&O Subjective Review of Systems Patient is a 28 year old female with multiple medical history including HIV with non compliant to antiretroviral therapy, MAC, multiple blood transfusion presented to the ED on 07/06/2024 with a chief complaint of generalized weakness, flu like symptom for 7 days and greenish watery diarrhea for 4 days. Patient's symptoms worsened and she started having chest pain as well.Chest pain was non- radiation, but it was associated with shortness of breath. In the ED, her initial vitals were temp: 99.3, pulse: 140, 139, RR: 16,221 and blood pressure of 75/42-121/64. The patient became more short of breath and developed acute metabolic encephalopathy that was needed emergent intubation. Patient was seen and examined on the bedside. Status post intubation ,on 15 L oxygen, tachypneic and tachycardic. Objective vital signs Vital Sign Date Time Temp Pulse Resp B/P (MAP) Pulse Ox O2 Delivery O2 Flow Rate FiO2 07/20/24 09:21 130 50 127/91 07/20/24 08:00 98 Non-Rebreather 15 N/A 07/20/24 06:30 98.4 209.1 Total Intake and Output 07/19/24 07/19/24 07/20/24 15:00 23:00 07:00 Intake Total 1336.840 ml 493 ml 1610 ml Output Total 4550 ml 650 ml Balance 1336.840 ml -4057 ml 960 ml medications Current Medications Medications Dose Ordered Sig/Era Route Start Time Stop Time Status Last Admin Dose Admin Pantoprazole Sodium 40 mg DAILY IV 07/07/24 10:00 07/19/24 08:21 40 MG Multivitamins 1 tab DAILY PO 07/07/24 10:00 07/19/24 08:21 1 TAB Acetaminophen 650 mg Q6HP PRN PO 07/06/24 20:15 07/12/24 22:29 650 MG Prochlorperazine Edisylate 5 mg Q4HPRN PRN IV 07/06/24 21:45 07/11/24 14:21 5 MG Nitroglycerin 0.4 mg Q5MINP PRN SL 07/06/24 21:45 Morphine Sulfate 2 mg Q30M PRN IV 07/06/24 21:45 Cancel Morphine Sulfate 2 mg Q30MIN PRN IV 07/07/24 06:45 Cancel Loperamide HCl 2 mg PRN PRN PO 07/08/24 08:45 Hold 07/11/24 03:15 2 MG Morphine Sulfate 2 mg Q30M PRN IV 07/08/24 09:15 07/20/24 07:47 2 MG Rifampin 300 mg BID PO 07/09/24 22:00 UNV Ethambutol HCl 800 mg DAILY PO 07/09/24 15:45 07/19/24 08:21 800 MG Hydrocortisone Sodium Succinate 100 mg Q12HR IV 07/10/24 10:00 07/19/24 22:28 100 MG Diphenoxylate HCl/ Atropine 2.5 mg Q12HP PRN PO 07/11/24 13:30 07/12/24 05:44 2.5 MG Midazolam HCl 50 ml @ 1 mls/hr Q24H IV 07/12/24 10:30 07/19/24 05:43 8 MLS/HR Fentanyl Citrate 250 ml @ 2.5 mls/hr Q24H IV 07/12/24 10:30 07/19/24 05:22 17.5 MLS/HR Phenylephrine HCl 250 ml @ 30 mls/hr Q8H20M IV 07/12/24 10:30 07/13/24 14:47 48.75 MLS/HR Amino Acids 0 ml @ 0 mls/hr PER PHARMACY IV 07/12/24 17:30 Diagnostic Test (Pha) 1 strip Q6HR 07/13/24 00:00 07/20/24 06:00 1 STRIP Insulin Human Regular FOLLOW SLIDING SCALE Q6HR SC 07/13/24 00:00 07/19/24 00:27 4 UNITS Dextrose 50 ml UD IV 07/12/24 17:45 07/12/24 23:52 50 ML Sodium Chloride 10 ml QSHIFT@10,22 IV 07/12/24 22:00 07/19/24 22:30 10 ML Acetaminophen 650 mg Q6HP PRN ME 07/13/24 08:30 Trimethoprim/ Sulfamethoxazole 0 ml @ 0 mls/hr PER PHARMACY IV 07/13/24 08:30 Trimethoprim/ Sulfamethoxazole 20 ml/Dextrose 520 ml @ 346.667 mls/hr Q8HR IV 07/13/24 12:00 07/20/24 06:24 346.667 MLS/HR Norepinephrine Bitartrate 32 mg/ Sodium Chloride 250 ml @ 0.938 mls/ hr Q24H IV 07/13/24 21:00 07/17/24 12:30 2.813 MLS/HR Insulin Human (Reg)/Sodium Chloride 100 ml @ 0.5 mls/hr Q24H IV 07/14/24 11:15 UNV Diagnostic Test (Pha) 1 strip Q90MIN 07/14/24 12:00 UNV Dextrose 50 ml PRN PRN IV 07/14/24 11:15 UNV Insulin Glargine 15 units DAILY SC 07/15/24 10:00 UNV Sodium Bicarbonate 75 ml/ Dextrose 1,075 ml @ 100 mls/hr [id number] IV 07/14/24 14:30 Cancel Amikacin Sulfate 0 ml @ 0 mls/hr PER PHARMACY IV 07/15/24 18:30 Fat Emulsion Intravenous 30 ml/ Potassium Chloride 40 meq/ Potassium Phosphate 22 meq/ Calcium Gluconate 4.65 meq/ Magnesium Sulfate 18 meq/ Multivitamins 10 ml/Chromium/ Copper/Manganese/ Zinc 1 ml/Amino Acids/Dextrose 1,230.5 ml @ 51 mls/hr Q24H8M IV 07/19/24 22:00 07/20/24 21:59 07/20/24 02:29 51 MLS/HR Cholestyramine Resin 4 gm BID PO 07/19/24 22:00 Lorazepam 2 mg Q4HP PRN IV 07/19/24 18:15 07/20/24 07:46 2 MG Morphine Sulfate 2 mg Q4HP PRN IV 07/19/24 18:15 07/20/24 01:12 2 MG Doxycycline Hyclate 100 ml @ 50 mls/hr Q12H IV 07/20/24 00:30 07/20/24 00:36 50 MLS/HR Potassium Chloride 100 ml @ 50 mls/hr Q2H IV 07/20/24 07:00 07/20/24 12:59 07/20/24 09:22 50 MLS/HR Methylprednisolone Sodium Succinate 20 mg BID IV 07/20/24 22:00 Furosemide 40 mg BID IV 07/20/24 10:00 UNV Examination Physical examination: General Appearance: Alert, Oriented X3, cachectic, tachypnic , tachycardic and on 15L oxygen HEENT: Atraumatic, PERRLA, EOMI, Mucous membrane moist/pink Respiratory: Bilateral decreased breath sound. Cardiovascular: Regular rate, Normal S1, Normal S2, No murmurs, no chest wall tenderness Abdominal: Normal bowel sounds, Soft, No tenderness, hepatospenomegaly present. Extremities: generalized anasarca, bilateral pedal edema 2+, No clubbing, No cyanosis, Normal pulses. Skin: No rashes, No breakdown, No significant lesion Neuro: Strength at 5/5 X4 ext, Normal tone, Sensation intact, grossly intact cranial nerves. Psych/Mental Status: Could not be assessed. laboratory and microbiology Laboratory Tests 07/20/24 04:44 Test 07/20/24 04:44 Range/Units Serum Glucose 132 H 74-106 mg/dL Microbiology Date/Time Source Procedure Growth Status 07/17/24 13:00 Lung Pending Resulted 07/17/24 13:00 Lung Pending Resulted 07/17/24 13:00 Lung Pending Resulted 07/17/24 13:00 Lung Pending Resulted 07/17/24 13:00 Lung - Final See Separate Report... Resulted 07/17/24 13:00 Bronchial Washings AFB Broth Culture Pending Resulted 07/17/24 13:00 Bronchial Washings - Final Resulted 07/17/24 13:00 Bronchial Washings - Final Resulted 07/17/24 13:00 Bronchial Washings Acid Fast Bacilli Culture Pending Resulted 07/09/24 17:00 Urine - Díaz Port Urine Culture - Final Complete 07/06/24 18:30 Stool Clostridium difficile Toxin Assay - Final Complete 07/06/24 18:21 Blood Blood Culture - Final NO GROWTH AFTER 5 DAYS OF INCUBATION. 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 # Septic shock # PCP pneumonia # MAC # Opportunistic infection # Volume overload # Hypoalbuminemia # Hypernatremia # Hypokalemia # Acute hypoxic respiratory failure Plan/ Recommendation: - S/P extubation. - High urine osmolality and in the setting of volume overload highly unlikely diabetes insipidus - Stop vasopressin if not needed for pressure support - IV Lasix 40 mg bid. - IV methylprednisolone 20 mg bid and will increase the dose according to the response of the patient. - KCL replacement. - Strict I&O - Continue IV antibiotic as per primary team - Code status modified, CPR only/DNI - We will follow this patient Plan discussed with Dr. Amaya Plan discussed with: Other (RN) Dietary Evaluation Review Recommendations by RD: Increase Calorie Intake, Protein Supplementation Comments: Pt meets criteria for Severe Protein-Calorie Malnutrition in the setting of chronic illness based on severe weight loss (26.2kg/34.6% in 3 months) and moderate muscle wasting(triceps & shoulder). Nutrition Recommendation: 1. Liberalize to regular diet to minimize food restriction 2. Appetite stimulant daily 3. Ensure Enlive 240 ml TID (ordered per ONS protocol) Expected Outcomes/Goals: To maintain/gain weight To meet at least 75% estimated needs Fu 3-5 days Interpretation of weight loss: >7.5% in 3 months Muscle Mass (Severe): Mod to Severe Depletion Protein Calorie Malnutrition: Severe Is there a minimum of two crit: Yes CC Plasma Assessment Blood Product Administration S: 13:40 AIDAN SALAZAR RESIDENT Jul 20, 2024 10:37
[2024-07-20] MEDS: FUROSEMIDE 40 MG/4 ML VIAL IV SCH (10:54)
--- NOTE | 2024-07-20 13:27 | DVHPN2 ---
Progress Note - Dictate Date Seen: Jul 20, 2024 Medical Necessity Reason Pt with a Central, PICC or Fol: Yes The following are medically ne: PICC Line, Díaz Catheter Reason for díaz catheter: Strict I&O Subjective Patient was seen and evaluated in follow up in the ICU. Patient was successfully extubated yesterday. Patient is on 15 L NRB. Per RN, the patient does not want to be reintubated, code status was changed to a modified code with chest compressions only. WBC 4.3, HGB 8.5, HCT 25.5, K 3.2, CO2 34, CA 7.8, AST 57. vital signs Vital Sign Date Time Temp Pulse Resp B/P (MAP) Pulse Ox O2 Delivery O2 Flow Rate FiO2 07/20/24 11:49 126 53 115/71 07/20/24 08:00 98 Non-Rebreather 15 N/A 07/20/24 06:30 98.4 209.1 Total Intake and Output 07/19/24 07/19/24 07/20/24 15:00 23:00 07:00 Intake Total 1336.840 ml 493 ml 1610 ml Output Total 4550 ml 650 ml Balance 1336.840 ml -4057 ml 960 ml medications Current Medications Medications Dose Ordered Sig/Era Route Start Time Stop Time Status Last Admin Dose Admin Pantoprazole Sodium 40 mg DAILY IV 07/07/24 10:00 07/20/24 10:00 40 MG Multivitamins 1 tab DAILY PO 07/07/24 10:00 07/20/24 10:54 1 TAB Acetaminophen 650 mg Q6HP PRN PO 07/06/24 20:15 07/12/24 22:29 650 MG Prochlorperazine Edisylate 5 mg Q4HPRN PRN IV 07/06/24 21:45 07/11/24 14:21 5 MG Nitroglycerin 0.4 mg Q5MINP PRN SL 07/06/24 21:45 Morphine Sulfate 2 mg Q30M PRN IV 07/06/24 21:45 Cancel Morphine Sulfate 2 mg Q30MIN PRN IV 07/07/24 06:45 Cancel Loperamide HCl 2 mg PRN PRN PO 07/08/24 08:45 Hold 07/11/24 03:15 2 MG Morphine Sulfate 2 mg Q30M PRN IV 07/08/24 09:15 07/08/24 15:51 2 MG Rifampin 300 mg BID PO 07/09/24 22:00 UNV Ethambutol HCl 800 mg DAILY PO 07/09/24 15:45 07/19/24 08:21 800 MG Hydrocortisone Sodium Succinate 100 mg Q12HR IV 07/10/24 10:00 07/20/24 10:54 100 MG Diphenoxylate HCl/ Atropine 2.5 mg Q12HP PRN PO 07/11/24 13:30 07/12/24 05:44 2.5 MG Midazolam HCl 50 ml @ 1 mls/hr Q24H IV 07/12/24 10:30 07/19/24 05:43 8 MLS/HR Fentanyl Citrate 250 ml @ 2.5 mls/hr Q24H IV 07/12/24 10:30 07/19/24 05:22 17.5 MLS/HR Phenylephrine HCl 250 ml @ 30 mls/hr Q8H20M IV 07/12/24 10:30 07/13/24 14:47 48.75 MLS/HR Amino Acids 0 ml @ 0 mls/hr PER PHARMACY IV 07/12/24 17:30 Diagnostic Test (Pha) 1 strip Q6HR 07/13/24 00:00 07/20/24 06:00 1 STRIP Insulin Human Regular FOLLOW SLIDING SCALE Q6HR SC 07/13/24 00:00 07/19/24 00:27 4 UNITS Dextrose 50 ml UD IV 07/12/24 17:45 07/12/24 23:52 50 ML Sodium Chloride 10 ml QSHIFT@10,22 IV 07/12/24 22:00 07/20/24 10:54 10 ML Acetaminophen 650 mg Q6HP PRN [place] 07/13/24 08:30 Trimethoprim/ Sulfamethoxazole 0 ml @ 0 mls/hr PER PHARMACY IV 07/13/24 08:30 Trimethoprim/ Sulfamethoxazole 20 ml/Dextrose 520 ml @ 346.667 mls/hr Q8HR IV 07/13/24 12:00 07/20/24 06:24 346.667 MLS/HR Norepinephrine Bitartrate 32 mg/ Sodium Chloride 250 ml @ 0.938 mls/ hr Q24H IV 07/13/24 21:00 07/17/24 12:30 2.813 MLS/HR Insulin Human (Reg)/Sodium Chloride 100 ml @ 0.5 mls/hr Q24H IV 07/14/24 11:15 UNV Diagnostic Test (Pha) 1 strip Q90MIN 07/14/24 12:00 UNV Dextrose 50 ml PRN PRN IV 07/14/24 11:15 UNV Insulin Glargine 15 units DAILY SC 07/15/24 10:00 UNV Sodium Bicarbonate 75 ml/ Dextrose 1,075 ml @ 100 mls/hr [id number] IV 07/14/24 14:30 Cancel Amikacin Sulfate 0 ml @ 0 mls/hr PER PHARMACY IV 07/15/24 18:30 Fat Emulsion Intravenous 30 ml/ Potassium Chloride 40 meq/ Potassium Phosphate 22 meq/ Calcium Gluconate 4.65 meq/ Magnesium Sulfate 18 meq/ Multivitamins 10 ml/Chromium/ Copper/Manganese/ Zinc 1 ml/Amino Acids/Dextrose 1,230.5 ml @ 51 mls/hr Q24H8M IV 07/19/24 22:00 07/20/24 21:59 07/20/24 02:29 51 MLS/HR Cholestyramine Resin 4 gm BID PO 07/19/24 22:00 Lorazepam 2 mg Q4HP PRN IV 07/19/24 18:15 07/20/24 10:57 2 MG Morphine Sulfate 2 mg Q4HP PRN IV 07/19/24 18:15 07/20/24 11:49 2 MG Doxycycline Hyclate 100 ml @ 50 mls/hr Q12H IV 07/20/24 00:30 07/20/24 00:36 50 MLS/HR Potassium Chloride 100 ml @ 50 mls/hr Q2H IV 07/20/24 07:00 07/20/24 12:59 07/20/24 10:59 50 MLS/HR Methylprednisolone Sodium Succinate 20 mg BID IV 07/20/24 22:00 Furosemide 40 mg BID IV 07/20/24 10:00 07/20/24 10:54 40 MG objective GENERAL: Alert and oriented x 3. No acute distress. EYES: PERRL, EOMI. Anicteric. HENT: Moist mucous membranes. LUNGS: Decreased breath sounds. CARDIOVASCULAR: Regular rate and rhythm. ABDOMEN: Soft, nontender and nondistended. EXTREMITIES: 4+ BLE pitting edema. SKIN: Warm, dry. laboratory and microbiology Laboratory Tests 07/20/24 04:44 Test 07/20/24 04:44 Range/Units Serum Glucose 132 H 74-106 mg/dL Problem List Sinus rhythm with bigeminy PVCs. Nonsustained V-tach. Chronic HFmrEF, NYHA class III. History of pericardial effusion. Septic shock. Acute hypoxic respiratory failure. Pneumonia. HIV. Severe anemia. Thrombocytopenia. History of mycobacterium avium complex (MAC). Thyroid disease. Tobacco use. Assessment/Plan Continued all current supportive medical care. IV antibiotics as ordered. Diuretics with Lasix. Morphine for pain management. GI prophylactics. Nitro SL. Vasopressor for hemodynamic support. Additional plan as per the hospital course. Critical care time of 45 minutes provided to include time spent evaluation of patient at bedside, when appropriate patient/family education for diagnosis, treatment plan, review of pertinent medical information and discussion of care with specialty providers and PCP. Dietary Evaluation Review Recommendations by RD: Increase Calorie Intake, Protein Supplementation Comments: Pt meets criteria for Severe Protein-Calorie Malnutrition in the setting of chronic illness based on severe weight loss (26.2kg/34.6% in 3 months) and moderate muscle wasting(triceps & shoulder). Nutrition Recommendation: 1. Liberalize to regular diet to minimize food restriction 2. Appetite stimulant daily 3. Ensure Enlive 240 ml TID (ordered per ONS protocol) Expected Outcomes/Goals: To maintain/gain weight To meet at least 75% estimated needs Fu 3-5 days Interpretation of weight loss: >7.5% in 3 months Muscle Mass (Severe): Mod to Severe Depletion Protein Calorie Malnutrition: Severe Plan discussed with: Patient CC Plasma Assessment Blood Product Administration S: 13:40 ABBY GANT MD Jul 20, 2024 12:17
[2024-07-20 14:53] LABS: Potassium 3.9 mmol/L (3.5-5.1)
[2024-07-20 15:15] LABS: Magnesium 1.6 mg/dL (1.6-2.6)
--- NOTE | 2024-07-20 15:51 | DVH ---
CHEST RADIOGRAPH Indication: SOB Technique: Single frontal view of the chest was obtained COMPARISON: 07/19/2024 FINDINGS: Interval removal of endotracheal, nasogastric tubes. PICC line projects over the SVC. The cardiac silhouette is enlarged. The lungs demonstrate bilateral patchy airspace opacities, signif icantly increased since previous examination. The pulmonary vasculature is prominent. Small bilateral pleural effusions. There is no pneumothorax. IMPRESSION: 1. As above
[2024-07-20] MEDS: AMIKACIN 1,000 MG in D5W 5% 100 ML IV SCH (16:03)
--- NOTE | 2024-07-20 16:12 | DVHPN2 ---
Progress Note - Dictate Date Seen: Jul 20, 2024 Medical Necessity Reason Pt with a Central, PICC or Fol: Yes The following are medically ne: PICC Line, Díaz Catheter Reason for díaz catheter: Strict I&O Subjective Patient seen at bedside in LASHON[place] 261 Patient is awake alert and extubated Patient is currently on a BiPAP drip Patient has been made DNI and chemical code only Pancytopenia is improving; platelet count up to 16 vital signs Vital Sign Date Time Temp Pulse Resp B/P (MAP) Pulse Ox O2 Delivery O2 Flow Rate FiO2 07/20/24 14:30 98.8 110 45 109/64 (79) 99 209.8 07/20/24 14:12 Facial BiPAP Mask 100 07/20/24 08:00 15 Total Intake and Output 07/19/24 07/19/24 07/20/24 15:00 23:00 07:00 Intake Total 1336.840 ml 493 ml 1610 ml Output Total 4550 ml 650 ml Balance 1336.840 ml -4057 ml 960 ml medications Current Medications Medications Dose Ordered Sig/Era Route Start Time Stop Time Status Last Admin Dose Admin Pantoprazole Sodium 40 mg DAILY IV 07/07/24 10:00 07/20/24 10:00 40 MG Multivitamins 1 tab DAILY PO 07/07/24 10:00 07/20/24 10:54 1 TAB Acetaminophen 650 mg Q6HP PRN PO 07/06/24 20:15 07/12/24 22:29 650 MG Prochlorperazine Edisylate 5 mg Q4HPRN PRN IV 07/06/24 21:45 07/11/24 14:21 5 MG Nitroglycerin 0.4 mg Q5MINP PRN SL 07/06/24 21:45 Morphine Sulfate 2 mg Q30M PRN IV 07/06/24 21:45 Cancel Morphine Sulfate 2 mg Q30MIN PRN IV 07/07/24 06:45 Cancel Loperamide HCl 2 mg PRN PRN PO 07/08/24 08:45 Hold 07/11/24 03:15 2 MG Morphine Sulfate 2 mg Q30M PRN IV 07/08/24 09:15 07/08/24 15:51 2 MG Rifampin 300 mg BID PO 07/09/24 22:00 UNV Ethambutol HCl 800 mg DAILY PO 07/09/24 15:45 07/19/24 08:21 800 MG Hydrocortisone Sodium Succinate 100 mg Q12HR IV 07/10/24 10:00 07/20/24 10:54 100 MG Diphenoxylate HCl/ Atropine 2.5 mg Q12HP PRN PO 07/11/24 13:30 07/12/24 05:44 2.5 MG Midazolam HCl 50 ml @ 1 mls/hr Q24H IV 07/12/24 10:30 07/19/24 05:43 8 MLS/HR Fentanyl Citrate 250 ml @ 2.5 mls/hr Q24H IV 07/12/24 10:30 07/19/24 05:22 17.5 MLS/HR Phenylephrine HCl 250 ml @ 30 mls/hr Q8H20M IV 07/12/24 10:30 07/13/24 14:47 48.75 MLS/HR Amino Acids 0 ml @ 0 mls/hr PER PHARMACY IV 07/12/24 17:30 Diagnostic Test (Pha) 1 strip Q6HR 07/13/24 00:00 07/20/24 12:00 1 STRIP Insulin Human Regular FOLLOW SLIDING SCALE Q6HR SC 07/13/24 00:00 07/20/24 12:00 4 UNITS Dextrose 50 ml UD IV 07/12/24 17:45 07/12/24 23:52 50 ML Sodium Chloride 10 ml QSHIFT@10,22 IV 07/12/24 22:00 07/20/24 10:54 10 ML Acetaminophen 650 mg Q6HP PRN MD 07/13/24 08:30 Trimethoprim/ Sulfamethoxazole 0 ml @ 0 mls/hr PER PHARMACY IV 07/13/24 08:30 Trimethoprim/ Sulfamethoxazole 20 ml/Dextrose 520 ml @ 346.667 mls/hr Q8HR IV 07/13/24 12:00 07/20/24 16:03 346.667 MLS/HR Norepinephrine Bitartrate 32 mg/ Sodium Chloride 250 ml @ 0.938 mls/ hr Q24H IV 07/13/24 21:00 07/17/24 12:30 2.813 MLS/HR Insulin Human (Reg)/Sodium Chloride 100 ml @ 0.5 mls/hr Q24H IV 07/14/24 11:15 UNV Diagnostic Test (Pha) 1 strip Q90MIN 07/14/24 12:00 UNV Dextrose 50 ml PRN PRN IV 07/14/24 11:15 UNV Insulin Glargine 15 units DAILY SC 07/15/24 10:00 UNV Sodium Bicarbonate 75 ml/ Dextrose 1,075 ml @ 100 mls/hr [id number] IV 07/14/24 14:30 Cancel Amikacin Sulfate 0 ml @ 0 mls/hr PER PHARMACY IV 07/15/24 18:30 Fat Emulsion Intravenous 30 ml/ Potassium Chloride 40 meq/ Potassium Phosphate 22 meq/ Calcium Gluconate 4.65 meq/ Magnesium Sulfate 18 meq/ Multivitamins 10 ml/Chromium/ Copper/Manganese/ Zinc 1 ml/Amino Acids/Dextrose 1,230.5 ml @ 51 mls/hr Q24H8M IV 07/19/24 22:00 07/20/24 21:59 07/20/24 02:29 51 MLS/HR Cholestyramine Resin 4 gm BID PO 07/19/24 22:00 Lorazepam 2 mg Q4HP PRN IV 07/19/24 18:15 07/20/24 10:57 2 MG Morphine Sulfate 2 mg Q4HP PRN IV 07/19/24 18:15 07/20/24 11:49 2 MG Doxycycline Hyclate 100 ml @ 50 mls/hr Q12H IV 07/20/24 00:30 07/20/24 13:46 50 MLS/HR Methylprednisolone Sodium Succinate 20 mg BID IV 07/20/24 22:00 Furosemide 40 mg BID IV 07/20/24 10:00 07/20/24 10:54 40 MG Fat Emulsion Intravenous 30 ml/ Sodium Chloride 10 meq/Potassium Chloride 60 meq/ Calcium Gluconate 4.65 meq/ Magnesium Sulfate 24 meq/ Multivitamins 10 ml/Chromium/ Copper/Manganese/ Zinc 1 ml/Amino Acids/Dextrose 1,389.5 ml @ 58 mls/hr [id number] IV 07/20/24 22:00 07/21/24 21:59 Amikacin Sulfate 1000 mg/Dextrose 104 ml @ 104 mls/hr DAILY@1500 IV 07/20/24 15:00 07/20/24 16:03 104 MLS/HR objective General: NAD, AAOX3; extubated mild pallor Chest: lung lobo clear to auscultation Heart: RRR, no murmur Abdomen: non-distended, no tenderness to palpation, +BS laboratory and microbiology Laboratory Tests 07/20/24 14:35 07/20/24 04:44 Test 07/20/24 04:44 Range/Units Serum Glucose 132 H 74-106 mg/dL Problems(with codes): (1) History of HIV or AIDS (2) Pneumocystis jiroveci pneumonia (3) Opportunistic infection (4) Hypoalbuminemia (5) Pancytopenia (6) Diarrhea Prognosis Plan Patient is continued on IV TPN Cholestyramine 4 g packet p.o. daily Room Lomotil 1-2 tablets p.o. twice a day as needed for diarrhea Continue supportive care Consideration is being given to possible hospice placement Overall prognosis remains guarded Patient will need to resume her HIV medications once medically stabilized ID is following and managing patient's antibiotic use Dietary Evaluation Review Recommendations by RD: Increase Calorie Intake, Protein Supplementation Comments: Pt meets criteria for Severe Protein-Calorie Malnutrition in the setting of chronic illness based on severe weight loss (26.2kg/34.6% in 3 months) and moderate muscle wasting(triceps & shoulder). Nutrition Recommendation: 1. Liberalize to regular diet to minimize food restriction 2. Appetite stimulant daily 3. Ensure Enlive 240 ml TID (ordered per ONS protocol) Expected Outcomes/Goals: To maintain/gain weight To meet at least 75% estimated needs Fu 3-5 days Interpretation of weight loss: >7.5% in 3 months Muscle Mass (Severe): Mod to Severe Depletion Protein Calorie Malnutrition: Severe Plan discussed with: Patient, Other (LASHONDA Nurse) CC Plasma Assessment Blood Product Administration S: 13:40 JAMESON KIM MD Jul 20, 2024 16:12
[2024-07-20] MEDS: MAGNESIUM SULFATE 1GM/100ML 100 ML IV ONE (17:39)
--- NOTE | 2024-07-20 19:11 | DVHPNRES ---
Progress Note Date Seen: Jul 20, 2024 Resident Creating Document: KADEEM CROCKETT RESIDENT Medical Necessity Reason Pt with a Central, PICC or Fol: Yes The following are medically ne: PICC Line, Díaz Catheter Reason for díaz catheter: Strict I&O Medical Necessity Reason Patient seen examined today. She was extubated yesterday. She was able to take some liquid diet. This morning,patient was in respiratory distress with respiratory rate in the 30s-40s. Patient was then placed on bipap. Family has been informed about her current current and boyfriend was by the bedside. Patient today side a DNI form. She wants on chest compression. Subjective Review of Systems On Bipap Objective vital signs Vital Sign Date Time Temp Pulse Resp B/P (MAP) Pulse Ox O2 Delivery O2 Flow Rate FiO2 07/20/24 18:00 58 99 Bi-Pap+ 100 100 07/20/24 18:00 116 07/20/24 17:24 132/100 07/20/24 14:30 98.8 209.8 07/20/24 08:00 15 Total Intake and Output 07/19/24 07/19/24 07/20/24 15:00 23:00 07:00 Intake Total 1336.840 ml 493 ml 2007.667 ml Output Total 4550 ml 650 ml Balance 1336.840 ml -4057 ml 1357.667 ml medications Current Medications Medications Dose Ordered Sig/Era Route Start Time Stop Time Status Last Admin Dose Admin Pantoprazole Sodium 40 mg DAILY IV 07/07/24 10:00 07/20/24 10:00 40 MG Multivitamins 1 tab DAILY PO 07/07/24 10:00 07/20/24 10:54 1 TAB Acetaminophen 650 mg Q6HP PRN PO 07/06/24 20:15 07/12/24 22:29 650 MG Prochlorperazine Edisylate 5 mg Q4HPRN PRN IV 07/06/24 21:45 07/11/24 14:21 5 MG Nitroglycerin 0.4 mg Q5MINP PRN SL 07/06/24 21:45 Morphine Sulfate 2 mg Q30M PRN IV 07/06/24 21:45 Cancel Morphine Sulfate 2 mg Q30MIN PRN IV 07/07/24 06:45 Cancel Loperamide HCl 2 mg PRN PRN PO 07/08/24 08:45 Hold 07/11/24 03:15 2 MG Morphine Sulfate 2 mg Q30M PRN IV 07/08/24 09:15 07/20/24 16:45 2 MG Rifampin 300 mg BID PO 07/09/24 22:00 UNV Ethambutol HCl 800 mg DAILY PO 07/09/24 15:45 07/19/24 08:21 800 MG Hydrocortisone Sodium Succinate 100 mg Q12HR IV 07/10/24 10:00 07/20/24 10:54 100 MG Diphenoxylate HCl/ Atropine 2.5 mg Q12HP PRN PO 07/11/24 13:30 07/12/24 05:44 2.5 MG Midazolam HCl 50 ml @ 1 mls/hr Q24H IV 07/12/24 10:30 07/19/24 05:43 8 MLS/HR Fentanyl Citrate 250 ml @ 2.5 mls/hr Q24H IV 07/12/24 10:30 07/19/24 05:22 17.5 MLS/HR Phenylephrine HCl 250 ml @ 30 mls/hr Q8H20M IV 07/12/24 10:30 07/13/24 14:47 48.75 MLS/HR Amino Acids 0 ml @ 0 mls/hr PER PHARMACY IV 07/12/24 17:30 Diagnostic Test (Pha) 1 strip Q6HR 07/13/24 00:00 07/20/24 17:48 1 STRIP Insulin Human Regular FOLLOW SLIDING SCALE Q6HR SC 07/13/24 00:00 07/20/24 12:00 4 UNITS Dextrose 50 ml UD IV 07/12/24 17:45 07/12/24 23:52 50 ML Sodium Chloride 10 ml QSHIFT@10,22 IV 07/12/24 22:00 07/20/24 10:54 10 ML Acetaminophen 650 mg Q6HP PRN CO 07/13/24 08:30 Trimethoprim/ Sulfamethoxazole 0 ml @ 0 mls/hr PER PHARMACY IV 07/13/24 08:30 Trimethoprim/ Sulfamethoxazole 20 ml/Dextrose 520 ml @ 346.667 mls/hr Q8HR IV 07/13/24 12:00 07/20/24 16:03 346.667 MLS/HR Norepinephrine Bitartrate 32 mg/ Sodium Chloride 250 ml @ 0.938 mls/ hr Q24H IV 07/13/24 21:00 07/17/24 12:30 2.813 MLS/HR Insulin Human (Reg)/Sodium Chloride 100 ml @ 0.5 mls/hr Q24H IV 07/14/24 11:15 UNV Diagnostic Test (Pha) 1 strip Q90MIN 07/14/24 12:00 UNV Dextrose 50 ml PRN PRN IV 07/14/24 11:15 UNV Insulin Glargine 15 units DAILY SC 07/15/24 10:00 UNV Sodium Bicarbonate 75 ml/ Dextrose 1,075 ml @ 100 mls/hr [id number] IV 07/14/24 14:30 Cancel Amikacin Sulfate 0 ml @ 0 mls/hr PER PHARMACY IV 07/15/24 18:30 Fat Emulsion Intravenous 30 ml/ Potassium Chloride 40 meq/ Potassium Phosphate 22 meq/ Calcium Gluconate 4.65 meq/ Magnesium Sulfate 18 meq/ Multivitamins 10 ml/Chromium/ Copper/Manganese/ Zinc 1 ml/Amino Acids/Dextrose 1,230.5 ml @ 51 mls/hr Q24H8M IV 07/19/24 22:00 07/20/24 21:59 07/20/24 02:29 51 MLS/HR Cholestyramine Resin 4 gm BID PO 07/19/24 22:00 Doxycycline Hyclate 100 ml @ 50 mls/hr Q12H IV 07/20/24 00:30 07/20/24 13:46 50 MLS/HR Methylprednisolone Sodium Succinate 20 mg BID IV 07/20/24 22:00 Furosemide 40 mg BID IV 07/20/24 10:00 07/20/24 10:54 40 MG Fat Emulsion Intravenous 30 ml/ Sodium Chloride 10 meq/Potassium Chloride 60 meq/ Calcium Gluconate 4.65 meq/ Magnesium Sulfate 24 meq/ Multivitamins 10 ml/Chromium/ Copper/Manganese/ Zinc 1 ml/Amino Acids/Dextrose 1,389.5 ml @ 58 mls/hr [id number] IV 07/20/24 22:00 07/21/24 21:59 Amikacin Sulfate 1000 mg/Dextrose 104 ml @ 104 mls/hr DAILY@1500 IV 07/20/24 15:00 07/20/24 16:03 104 MLS/HR Morphine Sulfate 2 mg Q1HP PRN IV 07/20/24 18:30 Lorazepam 2 mg Q20MP PRN IV 07/20/24 18:30 Examination General Appearance: intubated and sedated, cachetic, muscle wasting, petechiae, temporal muscle wasting HEENT: Atraumatic Lungs/chest: petechiae noted on her right shoulders / clavicle; aeration improved. Cardiovascular: Normal S1, Normal S2, some episodes of V-tach Musculoskeletal: Normal sensory function, Normal motor function Neuro: awake/ alert and oriented x3 Skin: Dry, resolving gross edema Psych/Mental Status: unable to access. Patient is aware of her condition. laboratory and microbiology Laboratory Tests 07/20/24 14:35 07/20/24 04:44 Test 07/20/24 04:44 Range/Units Serum Glucose 132 H 74-106 mg/dL Microbiology Date/Time Source Procedure Growth Status 07/17/24 13:00 Lung Pending Resulted 07/17/24 13:00 Lung Pending Resulted 07/17/24 13:00 Lung Pending Resulted 07/17/24 13:00 Lung Pending Resulted 07/17/24 13:00 Lung - Final See Separate Report... Resulted 07/17/24 13:00 Bronchial Washings AFB Broth Culture Pending Resulted 07/17/24 13:00 Bronchial Washings - Final Resulted 07/17/24 13:00 Bronchial Washings - Final Resulted 07/17/24 13:00 Bronchial Washings Acid Fast Bacilli Culture Pending Resulted 07/09/24 17:00 Urine - Díaz Port Urine Culture - Final Complete 07/06/24 18:30 Stool Clostridium difficile Toxin Assay - Final Complete 07/06/24 18:21 Blood Blood Culture - Final NO GROWTH AFTER 5 DAYS OF INCUBATION. Complete Problem List/Assessment/Plan Problem List/Assessment/Plan Assessment and plan NEUROLOGY: Acute metabolic encephalopathy-resolved Anxiety - MRI: Limited by motion. No evidence of acute infarction, intracranial hemorrhage, mass effect or hydrocephalus. No definite CONTENT MANAGEMENT SPECIALIST lesion identified. Consider follow-up exam when patient is able to tolerate. - Antiva 2 mg [id number] - morphine: 2mg q 1hr for pain CARDIOVASCULAR Severe hypovolemia Sinus rhythm with bigeminy PVCs. Nonsustained V-tach. Chronic HFmrEF, NYHA class III. History of pericardial effusion. Cardiology following Transthoracic echocardiogram performed on 04/30/2024 reveals EF 48% with mild global pericardial effusion. We will repeat echocardiogram to reassess pericardial effusion. Unable to initiate guideline directed medical therapy for CHF given that patient is on multiple vasopressors RESPIRATORY Pneumocystis jiroveci pneumonia Acute hypoxic respiratory failure. Pneumonia PLAN: Hydrocordone succinate s/p bronchoscopy 07/19/2024 - IV Lasix 40 mg bid. - Bipap 07/20/2024 GASTROINTESTINAL FOBT positive, rule out GI Bleed rule out colitis Diarrhea Hepatosplenomegaly Lymphadenopathy GI following Patient not stable for colonoscopy. Also patient refused all procedures Compazine HEMATOLOGY Severe pancytopenia in the setting of HIV/AIDS Hepatosplenomegaly Lymphadenopathy S/p transfuse 7 unit total of platelet s/p transFuse 6 units total of PRBC INFECTIOUS DISEASE HIV/AIDS MAC Opportunistic infection CMV Septic Shock Possible tuberculosis (TB) infection Possible Histoplasma infection Possible cytomegalovirus (CMV) infection Possible Cryptococcus infection Positive hepatitis B core antibody Plan: obtained sample AFB 07/18/2024 culture for blood, sputum and stool- Called lab, they can only do sputum Continue Meropenem, Amikacin, Bactrim GENITOURINARY: Nephrotic range proteinuria Nephrotic syndrome likely secondary to HIV. produced over 10,475 ml of urine 24 hours - IV Lasix 40 mg bid. - IV methylprednisolone 20 mg bid and will increase the dose according to the response of the patient - Nephrology following METABOLIC Cachexia Hyponatremia Severe protein calorie malnutrition SKIN Sacral DTI, Muscle wasting, Temporal Bilateral legs edema Patient unstable for turns IV access: PICC line: left arm 07/12/2024: Fentanyl, midazolam, phenylephrine, NE Midline: right arm: 07/13/2024, Meropenem, Amikacin, Bactrim Drips:off all drip on 07/19/2024 Diet: TPN per pharmacy DVT prophylaxis: SCD, platelet low Consent received. s/p bronchoscopy Patient's ID DR. Radha Yanes: [phone] Code status: modified code Critical care time 45 minutes Advance care discussed with family ( SISTER, Mamie) Case discussed with Dri. Estevez Plan discussed with: Patient, Other (sister) My Orders My Orders Orders - KADEEM CROCKETT Procedure Category Date Status Time Chest Portable XY 07/20/24 Resulted 07:27 Abg W/ Co-Ox RT 07/20/24 Logged 07:20 Methylprednisolone PHA 07/20/24 In Process Sod Succ (Solu Medrol 22:00 BIPAP RT 07/20/24 Logged 12:24 Dietary Evaluation Review Recommendations by RD: Increase Calorie Intake, Protein Supplementation Comments: Pt meets criteria for Severe Protein-Calorie Malnutrition in the setting of chronic illness based on severe weight loss (26.2kg/34.6% in 3 months) and moderate muscle wasting(triceps & shoulder). Nutrition Recommendation: 1. Liberalize to regular diet to minimize food restriction 2. Appetite stimulant daily 3. Ensure Enlive 240 ml TID (ordered per ONS protocol) Expected Outcomes/Goals: To maintain/gain weight To meet at least 75% estimated needs Fu 3-5 days Interpretation of weight loss: >7.5% in 3 months Muscle Mass (Severe): Mod to Severe Depletion Protein Calorie Malnutrition: Severe CC Plasma Assessment Blood Product Administration S: 13:40 Date of Service: Jul 20, 2024 Billing Provider: CARYL ESTEVEZ MD Common Visit Codes: NOT BILLABLE KADEEM CROCKETT RESIDENT Jul 20, 2024 19:11 CARYL ESTEVEZ MD Jul 21, 2024 12:58
[2024-07-20] MEDS: LORazepam 2MG/ML-1ML VIAL IV PRN (19:39)
[2024-07-20] MEDS: methylPREDNISolone SOD SUCC 40 MG/ML VL IV SCH (21:52)
[2024-07-20] MEDS: MORPHINE SULFATE INJ 2 MG/ml SYRG IV PRN (21:54)
[2024-07-20] MEDS: FAT EMULSION30 IV NR (21:56)
[2024-07-20] MEDS: SODIUM CHLORIDE IV NR (21:56)
[2024-07-20] MEDS: [UNRECOGNIZED DRUG - OTHER] IV NR (21:56)
[2024-07-20] MEDS: POTASSIUM CHLORIDE IV NR (21:56)
[2024-07-21] VITALS (26 sets, daily range): BP systolic 101–184; BP diastolic 33–104; PULSE 39–135; RESP 52–98; TEMP 97.2–98.6; O2SAT 8–95
[2024-07-21] MEDS: FUROSEMIDE 40 MG/4 ML VIAL IV ONE (01:50)
[2024-07-21 05:05] LABS: Basophils # (auto) 0 10 ^3/uL (0-0.2); Basophils % (auto) 0.1 % (0.0-2.0); Eosinophils # (auto) 0 10 ^3/uL (0-0.8); Hematocrit 26.2 % (36.0-46.0); Hemoglobin 8.7 g/dL (12.2-16.2); Lymphocytes # (auto) 0.2 10 ^3/uL (0.4-5.4); Lymphocytes % (auto) 3.8 % (10.0-50.0); Mean Corpuscular Hemoglobin 29.5 pg (28.0-32.0); Mean Corpuscular Hgb Conc. 33.1 g/dL (32.0-36.0); Mean Corpuscular Volume 88.9 fL (80.0-100.0); Monocytes # (auto) 0 10 ^3/uL (0-1.3); Monocytes % (auto) 1.1 % (0.0-12.0); Neutrophils # (auto) 4.2 10 ^3/uL (1.6-8.6); Nucleated Red Blood Cells % 0.2 %; Red Blood Cells 2.95 10^6/uL (4.0-5.20); Red Cell Distribution Width 16.7 % (11.8-14.3); White Blood Cell 4.4 10^3/uL (4.4-10.8)
[2024-07-21 05:08] LABS: Platelet Count (auto) 16 10^3/uL (140-450); Platelet Estimate Markedly Decreased
[2024-07-21 05:27] LABS: Anion Gap 5 (5-15); BUN/Creatinine Ratio 111.1 (10.0-20.0); Blood Urea Nitrogen 20 mg/dL (9-23); Magnesium 1.6 mg/dL (1.6-2.6); Sodium 138 mmol/L (136-145)
[2024-07-21 05:28] LABS: Alanine Aminotransferase 42 U/L (7-40); Albumin 2.4 g/dL (3.2-4.8); Alkaline Phosphatase 155 U/L (46-116); Aspartate Aminotransferase 63 U/L (<34); Bilirubin, Total 0.6 mg/dL (0.2-1.0); Calcium 8.1 mg/dL (8.7-10.4); Carbon Dioxide 35 mmol/L (20-31); Chloride 98 mmol/L (98-107); Glucose 129 mg/dL (74-106); Phosphorus 3.3 mg/dL (2.4-5.1); Potassium 3.4 mmol/L (3.5-5.1); Total Protein 4.7 g/dL (5.7-8.2)
[2024-07-21] MEDS ORDERED: POTASSIUM CHL 20MEQ/100ML 100 ML IV ONE (07:00)
[2024-07-21] MEDS ORDERED: GLYCOPYRROLATE 0.2 MG/ML 1ML VIAL IV ONE (07:00)
[2024-07-21 07:49] LABS: Base Excess 3.5 mmol/L (-2.0-3.0)
[2024-07-21] MEDS ORDERED: NOREPINEPHRINE 8 MG/250ML KIT 250 ML IV ONE (09:33)
[2024-07-21] MEDS ORDERED: ATROPINE SULF 1 MG/10ml SYR IV ONE (10:18)
--- NOTE | 2024-07-21 12:36 | RESUS ---
YUDITH BAZZI ASSESSSMENT History of Events History of Events: PATIENT WENT BRADYCARDIC ON BIPAP AND LOST PULSE WHEN [facility] WAS CALLED Initial Information Date: Jul 21, 2024 Time: : Location of Arrest: [facility] Arrest Witnessed: Yes CPR started initial time: : CPR started by whom: Hospital Staff Type of arrest: Cardiac, Respiratory, Adult, Witnessed Spontaneous Respirations: No Pulse Present: No Monitoring: ECG, Pulse Oximetry, Apnea Crash Cart Opened and Supplies: Yes Airway Ventilation Breathing at Onset: Assisted Oxygen Delivery Method: Ambu-Bag (TAKEN OFF BIPAP AND BAGGED ) Artificial Ventilation: Bag/Mask Comments: MODIFIED CODE Circulation Circulation #1: Time: 09: Pulse Rate (adult): 0 Blood Pressure Systolic: 0 Blood Pressure Diastolic: 0 Circulation Comment: [place] Circulation #2: Time: 09: Pulse Rate (adult): 0 Blood Pressure Systolic: 0 Blood Pressure Diastolic: 0 Circulation Comment: PEA Circulation #3: Time: 09:28 Pulse Rate (adult): 0 Blood Pressure Systolic: 0 Blood Pressure Diastolic: 0 Circulation Comment: PEA Circulation #4: Time: 09:30 Pulse Rate (adult): 88 Circulation Comment: ROSC, BP RECYCLING Circulation #5: Time: 09:35 Pulse Rate (adult): 0 Blood Pressure Systolic: 0 Blood Pressure Diastolic: 0 Circulation Comment: LOST PULSE, PEA Circulation #6: Time: 09:37 Pulse Rate (adult): 0 Blood Pressure Systolic: 0 Blood Pressure Diastolic: 0 Circulation #7: Time: 09:39 Pulse Rate (adult): 0 Blood Pressure Systolic: 0 Blood Pressure Diastolic: 0 Circulation Comment: PEA Circulation #8: Time: 09:41 Pulse Rate (adult): 0 Blood Pressure Systolic: 0 Blood Pressure Diastolic: 0 Circulation Comment: TIME OF Medications & Response Medications and Responses #1: Medication Time: 09:25 ADULT Medications Given ADULT: Atropine 1 mg Route of Administration: IV EKG Rhythm: Sinus Bradycardia Medications and Responses #2: Medication Time: 09:27 ADULT Medications Given ADULT: Epinephrine 1 mg, Sodium Bacarbinate 50 meq Route of Administration: IV Medications and Responses #3: Medication Time: 09:31 ADULT Medications Given ADULT: Epinephrine 1 mg, Sodium Bacarbinate 50 meq Route of Administration: IV Medications and Responses #4: Medication Time: 09:36 ADULT Medications Given ADULT: Epinephrine 1 mg Medications and Responses #5: Medication Time: 09:37 ADULT Medications Given ADULT: Calcium Chloride 10 mL Route of Administration: IV Nurses Notes [place] Coma Scale Eye Opening: None (1) [place] Coma Scale Verbal: None (1) [place] Coma Scale Motor: None (1) Bedside Blood Glucose: 293 EKG Rhythm: Asystole Nurses Notes - Comment: LEVOPHED DRIP ORDERED AND STARTED UPON ROSC AT MAX RATE PER PROVIDER Time Code Ended Time Code Ended: 09:41 Post Arrest Status: Outcome of code: Unsuccessful Patient pronounced by: ADAM MORIN ASSISTED SALES REPRESENTATIVE Time patient pronounced: 09:41 Family notified: Yes Attending called: Yes Code Team Present: ADAM MORIN NP, DR ENGEL-RESIDENT, DR RENEE-RESIDENT, DEMETRIUS Esposito RNGLOVE TAGGER, TRACY Sams RN ICU CHARGE, BETTY Cowan RN, DAY RN, SAMM RN, JOSE RN, KAIT RN, PRAMOD RN, ALEXANDRA RT, PHIL RT, CHAPARRO RT, SIERRA CCT, DAVON -LINOTYPE OPERATOR STUDENT, KANWAL- LINOTYPE OPERATOR STUDENT. Demetrius Monroe Jul 21, 2024 12:36
--- NOTE | 2024-07-21 13:28 | DVHDS2 ---
Summary Date of Admission July 06, 2024 at 21:42 Date and Time of Expiration: Jul 21, 2024 09:41 Reason for Admission: gen weakness, end stage AIDS Labs/Diagnostic Data: Laboratory Results Test 07/21/24 07:36 07/21/24 05:36 07/21/24 04:54 07/20/24 07:51 Blood Gas Specimen Type Arterial Blood Gas Sample Site Left radial Blood Gas Patient Temperature 37.0 Arterial Blood Date Drawn [id number] Arterial Blood pH 7.354 (7.350-7.450) Arterial Blood Partial Pressure CO2 54.8 mmHg (32.0-45.0) Arterial Blood Partial Pressure O2 40.3 mmHg (83.0-108.0) Arterial Blood HCO3 29.8 mmol/L (21.0-28.0) Arterial Blood Oxygen Saturation 67.8 % (94.0-98.0) Arterial Blood Base Excess 3.5 mmol/L (-2.0-3.0) Arterial Blood Oxyhemoglobin 66.3 % (94.0-98.0) Arterial Blood Carboxyhemoglobin 2.1 % (0.5-1.5) Arterial Blood Methemoglobin 0.1 % (0.0-1.5) Jhonathan Test Yes Blood Gas Total Hemoglobin 9.50 g/dL (12.0-16.0) Blood Gas Set Respiration Rate 14.0 Blood Gas Modality Mask - bipap FiO2 % 100.0 Blood Gas EPAP 8 Blood Gas IPAP 15 Blood Gas Critical Value Read Back Yes Blood Gas Notified Whom Flaquita malloy md Blood Gas Notified Time [id number] Blood Gas Notified By Darlene nutrition teacher POC Glucose 144 mg/dl (70-106) White Blood Count 4.4 10^3/uL (4.4-10.8) Red Blood Count 2.95 10^6/uL (4.0-5.20) Hemoglobin 8.7 g/dL (12.2-16.2) Hematocrit 26.2 % (36.0-46.0) Mean Corpuscular Volume 88.9 fL (80.0-100.0) Mean Corpuscular Hemoglobin 29.5 pg (28.0-32.0) Mean Corpuscular Hemoglobin Concent 33.1 g/dL (32.0-36.0) Red Cell Distribution Width 16.7 % (11.8-14.3) Platelet Count 16 10^3/uL (140-450) Mean Platelet Volume 9.0 fL (6.9-10.8) Neutrophils (%) (Auto) 95.0 % (37.0-80.0) Lymphocytes (%) (Auto) 3.8 % (10.0-50.0) Monocytes (%) (Auto) 1.1 % (0.0-12.0) Eosinophils (%) (Auto) 0.0 % (0.0-7.0) Basophils (%) (Auto) 0.1 % (0.0-2.0) Neutrophils # (Auto) 4.2 10 ^3/uL (1.6-8.6) Lymphocytes # (Auto) 0.2 10 ^3/uL (0.4-5.4) Monocytes # (Auto) 0 10 ^3/uL (0-1.3) Eosinophils # (Auto) 0 10 ^3/uL (0-0.8) Basophils # (Auto) 0 10 ^3/uL (0-0.2) Nucleated Red Blood Cells 0.2 % Platelet Estimate Markedly decreased Sodium Level 138 mmol/L (136-145) Potassium Level 3.4 mmol/L (3.5-5.1) Chloride Level 98 mmol/L (98-107) Carbon Dioxide Level 35 mmol/L (20-31) Anion Gap 5 (5-15) Blood Urea Nitrogen 20 mg/dL (9-23) Creatinine 0.18 mg/dL (0.550-1.02) Glomerular Filtration Rate Calc 166 mL/min (>90) BUN/Creatinine Ratio 111.1 (10.0-20.0) Serum Glucose 129 mg/dL (74-106) Calcium Level 8.1 mg/dL (8.7-10.4) Phosphorus Level 3.3 mg/dL (2.4-5.1) Magnesium Level 1.6 mg/dL (1.6-2.6) Total Bilirubin 0.6 mg/dL (0.2-1.0) Aspartate Amino Transferase (AST) 63 U/L (<34) Alanine Aminotransferase (ALT) 42 U/L (7-40) Alkaline Phosphatase 155 U/L (46-116) Total Protein 4.7 g/dL (5.7-8.2) Albumin 2.4 g/dL (3.2-4.8) Blood Gas Liter Flow 15.00 Test 07/20/24 04:44 07/19/24 15:18 07/19/24 11:46 07/19/24 11:14 Haptoglobin 176 mg/dL (33-278) Lactate Dehydrogenase 362 U/L (120-246) Random Amikacin Level 1.6 ug/mL (1.0-30.0) Urine Osmolality 619 mOsm/kg Blood Gas Spontaneous Rate 28 Blood Gas Spontaneous Tidal Volume 443 Blood Gas Pressure Support 7 Blood Gas PEEP or CPAP 5.0 Test 07/19/24 07:50 07/19/24 06:42 07/18/24 12:36 07/18/24 10:06 Blood Gas Tidal Volume 450.0 Triglycerides Level 117 mg/dL (< 150) Urine Creatinine 25.39 mg/dL (30.0-125.0) Urine Protein/Creatinine Ratio 9.65 Urine Sodium 39 mmol/L (40-220) Urine Total Protein 245.1 mg/dL (1-14) Prothrombin Time 12.0 sec (9.3-11.8) Prothrombin Time INR 1.15 (0.9-1.15) Activated Partial Thromboplast Time 31.5 SEC (24.5-34.5) Test 07/18/24 09:35 07/18/24 08:09 07/17/24 04:25 07/16/24 18:09 Differential Total Cells Counted 100.0 (100) Neutrophils % (Manual) 90 (37.0-80.0) Band Neutrophils % (Manual) 0 Lymphocytes % (Manual) 7 (10.0-50.0) Monocytes % (Manual) 3 (0-12) Eosinophils % (Manual) 0 (0-7) Basophils % (Manual) 0 (0.0-2.0) Metamyelocytes % (manual) 0 Myelocytes % (Manual) 0 Promyelocytes % (Manual) 0 Blast Cells % (Manual) 0 Reactive Lymphocytes 0 Amikacin Level Trough 17.1 ug/mL (1.0-8.0) Specimen Drawn By Estelita iron erector [place] Cells Few Serum Osmolality 306 mOsm/kg (278-298) Anisocytosis (manual) Slight Test 07/16/24 05:47 07/15/24 02:00 07/10/24 08:08 07/08/24 22:00 B-Type Natriuretic Peptide 1692.66 pg/mL (0-100) Cholesterol Level < 50.0 mg/dL (< 200) LDL Cholesterol 7 mg/dL (< 100) HDL Cholesterol < 5 mg/dL (40-59) Thyroid Stimulating Hormone (TSH) 3.58 uIU/mL (0.55-4.78) Venous Blood pH 7.332 (7.320-7.430) Venous Blood pCO2 at Patient Temp 25.6 mmHg (38.0-54.0) Venous Blood pO2 at Patient Temp < 36.5 mmHg (23.0-48.0) Venous Blood HCO3 13.3 mmol/L (22.0-29.0) Venous Blood Base Excess -10.7 mmol/L (-2.0-3.0) Stool Occult Blood Positive (Negative) Stool Occult Blood Sample #3 (Negative) Test 07/08/24 08:34 07/08/24 04:20 07/07/24 09:40 07/06/24 21:10 Erythrocyte Sedimentation Rate 9 mm/hr (0-20) C-Reactive Protein High Sensitivity 8.58 mg/dL (<1.0) Urine Color Light-yellow (Yellow) Urine Clarity Hazy (Clear) Urine pH 6.0 (5.0-9.0) Urine Specific [place] 1.010 (1.001-1.035) Urine Protein Trace (Negative) Urine Ketones Negative (Negative) Urine Blood Negative /uL (Negative) Urine Nitrite Negative (Negative) Urine Bilirubin Negative (Negative) Urine Urobilinogen Normal mg/dL (Negative) Urine Leukocyte Esterase 2+ /uL (Negative) Urine RBC 2 /hpf (0 - 4) Urine Microscopic WBC 6 /HPF (0-5) Urine Squamous Epithelial Cells Few /hpf (<5) Urine Bacteria Few /hpf (None Seen) Urine Hyaline Casts Few /lpf (0 - 2) Urine Yeast with Hyphae Present /hpf Urine Yeast (Budding) Occasional /hpf (None Urine Glucose Normal mg/dL (Normal) Troponin I High Sensitivity < 3 ng/L (</=34) Test 07/06/24 20:11 07/06/24 18:30 07/06/24 18:21 Lactic Acid Level 1.5 mmol/L (0.4-2.0) Stool for White Cells Few Lipase 20 U/L (12-53) Other Laboratory Tests 07/21/24 04:54 Brief Hx & Hospital Course: pt with 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 Later was placed on bipap, found to have hypoxic RF and PEA arrest. Code started. poor prognosis iso comorbidities. Patient was pronounced 9.41. Final Diagnosis/Problems List HIV, AIDS end stage HFmrEf acute hypoxic RF PNA gp gn vs opportunitic inf malnutrition hypovolemia Discharge Disposition: at Hospital [facility] Date of Service: Jul 21, 2024 Billing Provider: SHARON BANSAL MD Common Visit Codes: [id number] CARE 30-74 MIN (crit care time 35 minutes) SHARON BANSAL MD Jul 21, 2024 13:28
--- NOTE | 2024-07-21 14:30 | DVHPN2 ---
Progress Note - Dictate Date Seen: Jul 21, 2024 Medical Necessity Reason Pt with a Central, PICC or Fol: Yes The following are medically ne: PICC Line, Díaz Catheter Reason for díaz catheter: Strict I&O vital signs Vital Sign Date Time Temp Pulse Resp B/P (MAP) Pulse Ox O2 Delivery O2 Flow Rate FiO2 07/21/24 12:36 0 Ambu-Bag 07/21/24 09:37 92 177/103 (127) 07/21/24 09:29 8 07/21/24 08:00 97.8 97.8 07/21/24 08:00 100 100 07/20/24 08:00 15 Total Intake and Output 07/20/24 07/20/24 07/21/24 15:00 23:00 07:00 Intake Total 681.33 ml 1161.334 ml 910.667 ml Output Total 1450 ml 2851 ml Balance 681.33 ml -288.666 ml -1940.333 ml medications Current Medications Medications Dose Ordered Sig/Era Route Start Time Stop Time Status Last Admin Dose Admin Pantoprazole Sodium 40 mg DAILY IV 07/07/24 10:00 07/20/24 10:00 40 MG Multivitamins 1 tab DAILY PO 07/07/24 10:00 07/20/24 10:54 1 TAB Acetaminophen 650 mg Q6HP PRN PO 07/06/24 20:15 07/12/24 22:29 650 MG Prochlorperazine Edisylate 5 mg Q4HPRN PRN IV 07/06/24 21:45 07/11/24 14:21 5 MG Nitroglycerin 0.4 mg Q5MINP PRN SL 07/06/24 21:45 Morphine Sulfate 2 mg Q30M PRN IV 07/06/24 21:45 Cancel Morphine Sulfate 2 mg Q30MIN PRN IV 07/07/24 06:45 Cancel Loperamide HCl 2 mg PRN PRN PO 07/08/24 08:45 Hold 07/11/24 03:15 2 MG Morphine Sulfate 2 mg Q30M PRN IV 07/08/24 09:15 07/20/24 16:45 2 MG Rifampin 300 mg BID PO 07/09/24 22:00 UNV Ethambutol HCl 800 mg DAILY PO 07/09/24 15:45 07/19/24 08:21 800 MG Diphenoxylate HCl/ Atropine 2.5 mg Q12HP PRN PO 07/11/24 13:30 07/12/24 05:44 2.5 MG Midazolam HCl 50 ml @ 1 mls/hr Q24H IV 07/12/24 10:30 07/19/24 05:43 8 MLS/HR Phenylephrine HCl 250 ml @ 30 mls/hr Q8H20M IV 07/12/24 10:30 07/13/24 14:47 48.75 MLS/HR Amino Acids 0 ml @ 0 mls/hr PER PHARMACY IV 07/12/24 17:30 Diagnostic Test (Pha) 1 strip Q6HR 07/13/24 00:00 07/21/24 05:45 1 STRIP Insulin Human Regular FOLLOW SLIDING SCALE Q6HR SC 07/13/24 00:00 07/21/24 05:44 2 UNITS Dextrose 50 ml UD IV 07/12/24 17:45 07/12/24 23:52 50 ML Sodium Chloride 10 ml QSHIFT@10,22 IV 07/12/24 22:00 07/20/24 22:11 10 ML Acetaminophen 650 mg Q6HP PRN CO 07/13/24 08:30 Trimethoprim/ Sulfamethoxazole 0 ml @ 0 mls/hr PER PHARMACY IV 07/13/24 08:30 Trimethoprim/ Sulfamethoxazole 20 ml/Dextrose 520 ml @ 346.667 mls/hr Q8HR IV 07/13/24 12:00 07/21/24 05:30 346.667 MLS/HR Norepinephrine Bitartrate 32 mg/ Sodium Chloride 250 ml @ 0.938 mls/ hr Q24H IV 07/13/24 21:00 07/17/24 12:30 2.813 MLS/HR Insulin Human (Reg)/Sodium Chloride 100 ml @ 0.5 mls/hr Q24H IV 07/14/24 11:15 UNV Diagnostic Test (Pha) 1 strip Q90MIN 07/14/24 12:00 UNV Dextrose 50 ml PRN PRN IV 07/14/24 11:15 UNV Insulin Glargine 15 units DAILY SC 07/15/24 10:00 UNV Sodium Bicarbonate 75 ml/ Dextrose 1,075 ml @ 100 mls/hr [id number] IV 07/14/24 14:30 Cancel Amikacin Sulfate 0 ml @ 0 mls/hr PER PHARMACY IV 07/15/24 18:30 Cholestyramine Resin 4 gm BID PO 07/19/24 22:00 Doxycycline Hyclate 100 ml @ 50 mls/hr Q12H IV 07/20/24 00:30 07/21/24 00:14 50 MLS/HR Methylprednisolone Sodium Succinate 20 mg BID IV 07/20/24 22:00 07/20/24 21:52 20 MG Furosemide 40 mg BID IV 07/20/24 10:00 07/20/24 21:52 40 MG Fat Emulsion Intravenous 30 ml/ Sodium Chloride 10 meq/Potassium Chloride 60 meq/ Calcium Gluconate 4.65 meq/ Magnesium Sulfate 24 meq/ Multivitamins 10 ml/Chromium/ Copper/Manganese/ Zinc 1 ml/Amino Acids/Dextrose 1,389.5 ml @ 58 mls/hr [id number] IV 07/20/24 22:00 07/21/24 21:59 07/20/24 21:56 58 MLS/HR Amikacin Sulfate 1000 mg/Dextrose 104 ml @ 104 mls/hr DAILY@1500 IV 07/20/24 15:00 07/20/24 16:03 104 MLS/HR Morphine Sulfate 2 mg Q1HP PRN IV 07/20/24 18:30 07/21/24 08:31 2 MG Lorazepam 2 mg Q20MP PRN IV 07/20/24 18:30 07/21/24 08:30 2 MG laboratory and microbiology Laboratory Tests 07/21/24 04:54 Test 07/21/24 04:54 Range/Units Serum Glucose 129 H 74-106 mg/dL Assessment/Plan Impression Acute hypoxemic respiratory failure Human immunodeficiency virus disease Mycobacterium avium complex Septic shock Pneumonia Anemia Events Remained on bipap overnight Frequent desaturations reported in spite of 100% FiO2 Patient continued to decline and developed cardiac arrest requiring CPR per ACLS protocols Despite lifesaving measures, patient was pronounced at 940 [address] in peace Dietary Evaluation Review Recommendations by RD: Increase Calorie Intake, Protein Supplementation Comments: Pt meets criteria for Severe Protein-Calorie Malnutrition in the setting of chronic illness based on severe weight loss (26.2kg/34.6% in 3 months) and moderate muscle wasting(triceps & shoulder). Nutrition Recommendation: 1. Liberalize to regular diet to minimize food restriction 2. Appetite stimulant daily 3. Ensure Enlive 240 ml TID (ordered per ONS protocol) Expected Outcomes/Goals: To maintain/gain weight To meet at least 75% estimated needs Fu 3-5 days Interpretation of weight loss: >7.5% in 3 months Muscle Mass (Severe): Mod to Severe Depletion Protein Calorie Malnutrition: Severe Plan discussed with: Other (Rn) CC Plasma Assessment Blood Product Administration S: 13:40 CARYL SUNG MD Jul 21, 2024 14:30
--- NOTE | 2024-07-21 18:43 | DVHPN2 ---
Progress Note - Dictate Date Seen: Jul 21, 2024 Medical Necessity Reason Pt with a Central, PICC or Fol: Yes The following are medically ne: PICC Line, Díaz Catheter Reason for díaz catheter: Strict I&O Subjective Patient was seen and evaluated in follow up in the ICU. Patient remained on Bi- PAP overnight. Frequent desaturations in spite of 100% FiO2. The patient continued to decline and developed cardiac arrest requiring CPR per ACLS protocols. Despite lifesaving measures, patient was pronounced at 0941. vital signs Vital Sign Date Time Temp Pulse Resp B/P (MAP) Pulse Ox O2 Delivery O2 Flow Rate FiO2 07/21/24 08:31 128 56 127/62 07/21/24 08:00 72 Bi-Pap+ 100 100 07/21/24 06:00 98.1 208.6 07/20/24 08:00 15 Total Intake and Output 07/20/24 07/20/24 07/21/24 15:00 23:00 07:00 Intake Total 681.33 ml 1161.334 ml 506 ml Output Total 1450 ml 2851 ml Balance 681.33 ml -288.666 ml -2345 ml medications Current Medications Medications Dose Ordered Sig/Era Route Start Time Stop Time Status Last Admin Dose Admin Pantoprazole Sodium 40 mg DAILY IV 07/07/24 10:00 07/20/24 10:00 40 MG Multivitamins 1 tab DAILY PO 07/07/24 10:00 07/20/24 10:54 1 TAB Acetaminophen 650 mg Q6HP PRN PO 07/06/24 20:15 07/12/24 22:29 650 MG Prochlorperazine Edisylate 5 mg Q4HPRN PRN IV 07/06/24 21:45 07/11/24 14:21 5 MG Nitroglycerin 0.4 mg Q5MINP PRN SL 07/06/24 21:45 Morphine Sulfate 2 mg Q30M PRN IV 07/06/24 21:45 Cancel Morphine Sulfate 2 mg Q30MIN PRN IV 07/07/24 06:45 Cancel Loperamide HCl 2 mg PRN PRN PO 07/08/24 08:45 Hold 07/11/24 03:15 2 MG Morphine Sulfate 2 mg Q30M PRN IV 07/08/24 09:15 07/20/24 16:45 2 MG Rifampin 300 mg BID PO 07/09/24 22:00 UNV Ethambutol HCl 800 mg DAILY PO 07/09/24 15:45 07/19/24 08:21 800 MG Diphenoxylate HCl/ Atropine 2.5 mg Q12HP PRN PO 07/11/24 13:30 07/12/24 05:44 2.5 MG Midazolam HCl 50 ml @ 1 mls/hr Q24H IV 07/12/24 10:30 07/19/24 05:43 8 MLS/HR Fentanyl Citrate 250 ml @ 2.5 mls/hr Q24H IV 07/12/24 10:30 07/19/24 05:22 17.5 MLS/HR Phenylephrine HCl 250 ml @ 30 mls/hr Q8H20M IV 07/12/24 10:30 07/13/24 14:47 48.75 MLS/HR Amino Acids 0 ml @ 0 mls/hr PER PHARMACY IV 07/12/24 17:30 Diagnostic Test (Pha) 1 strip Q6HR 07/13/24 00:00 07/21/24 05:45 1 STRIP Insulin Human Regular FOLLOW SLIDING SCALE Q6HR SC 07/13/24 00:00 07/21/24 05:44 2 UNITS Dextrose 50 ml UD IV 07/12/24 17:45 07/12/24 23:52 50 ML Sodium Chloride 10 ml QSHIFT@10,22 IV 07/12/24 22:00 07/20/24 22:11 10 ML Acetaminophen 650 mg Q6HP PRN NV 07/13/24 08:30 Trimethoprim/ Sulfamethoxazole 0 ml @ 0 mls/hr PER PHARMACY IV 07/13/24 08:30 Trimethoprim/ Sulfamethoxazole 20 ml/Dextrose 520 ml @ 346.667 mls/hr Q8HR IV 07/13/24 12:00 07/21/24 05:30 346.667 MLS/HR Norepinephrine Bitartrate 32 mg/ Sodium Chloride 250 ml @ 0.938 mls/ hr Q24H IV 07/13/24 21:00 07/17/24 12:30 2.813 MLS/HR Insulin Human (Reg)/Sodium Chloride 100 ml @ 0.5 mls/hr Q24H IV 07/14/24 11:15 UNV Diagnostic Test (Pha) 1 strip Q90MIN 07/14/24 12:00 UNV Dextrose 50 ml PRN PRN IV 07/14/24 11:15 UNV Insulin Glargine 15 units DAILY SC 07/15/24 10:00 UNV Sodium Bicarbonate 75 ml/ Dextrose 1,075 ml @ 100 mls/hr [id number] IV 07/14/24 14:30 Cancel Amikacin Sulfate 0 ml @ 0 mls/hr PER PHARMACY IV 07/15/24 18:30 Cholestyramine Resin 4 gm BID PO 07/19/24 22:00 Doxycycline Hyclate 100 ml @ 50 mls/hr Q12H IV 07/20/24 00:30 07/21/24 00:14 50 MLS/HR Methylprednisolone Sodium Succinate 20 mg BID IV 07/20/24 22:00 07/20/24 21:52 20 MG Furosemide 40 mg BID IV 07/20/24 10:00 07/20/24 21:52 40 MG Fat Emulsion Intravenous 30 ml/ Sodium Chloride 10 meq/Potassium Chloride 60 meq/ Calcium Gluconate 4.65 meq/ Magnesium Sulfate 24 meq/ Multivitamins 10 ml/Chromium/ Copper/Manganese/ Zinc 1 ml/Amino Acids/Dextrose 1,389.5 ml @ 58 mls/hr [id number] IV 07/20/24 22:00 07/21/24 21:59 07/20/24 21:56 58 MLS/HR Amikacin Sulfate 1000 mg/Dextrose 104 ml @ 104 mls/hr DAILY@1500 IV 07/20/24 15:00 07/20/24 16:03 104 MLS/HR Morphine Sulfate 2 mg Q1HP PRN IV 07/20/24 18:30 07/21/24 08:31 2 MG Lorazepam 2 mg Q20MP PRN IV 07/20/24 18:30 07/21/24 08:30 2 MG objective GENERAL: Alert and oriented x 3. No acute distress. EYES: PERRL, EOMI. Anicteric. HENT: Moist mucous membranes. LUNGS: Decreased breath sounds. CARDIOVASCULAR: Regular rate and rhythm. ABDOMEN: Soft, nontender and nondistended. EXTREMITIES: 4+ BLE pitting edema. SKIN: Warm, dry. laboratory and microbiology Laboratory Tests 07/21/24 04:54 Test 07/21/24 04:54 Range/Units Serum Glucose 129 H 74-106 mg/dL Problem List Sinus rhythm with bigeminy PVCs. Nonsustained V-tach. Chronic HFmrEF, NYHA class III. History of pericardial effusion. Septic shock. Acute hypoxic respiratory failure. Pneumonia. HIV. Severe anemia. Thrombocytopenia. History of mycobacterium avium complex (MAC). Thyroid disease. Tobacco use. Assessment/Plan Continued all current supportive medical care. IV antibiotics as ordered. Diuretics with Lasix. Morphine for pain management. GI prophylactics. Nitro SL. Vasopressor for hemodynamic support. Additional plan as per the hospital course. Critical care time of 45 minutes provided to include time spent evaluation of patient at bedside, when appropriate patient/family education for diagnosis, treatment plan, review of pertinent medical information and discussion of care with specialty providers and PCP. Dietary Evaluation Review Recommendations by RD: Increase Calorie Intake, Protein Supplementation Comments: Pt meets criteria for Severe Protein-Calorie Malnutrition in the setting of chronic illness based on severe weight loss (26.2kg/34.6% in 3 months) and moderate muscle wasting(triceps & shoulder). Nutrition Recommendation: 1. Liberalize to regular diet to minimize food restriction 2. Appetite stimulant daily 3. Ensure Enlive 240 ml TID (ordered per ONS protocol) Expected Outcomes/Goals: To maintain/gain weight To meet at least 75% estimated needs Fu 3-5 days Interpretation of weight loss: >7.5% in 3 months Muscle Mass (Severe): Mod to Severe Depletion Protein Calorie Malnutrition: Severe Plan discussed with: Other CC Plasma Assessment Blood Product Administration S: 13:40 ABBY GANT MD Jul 21, 2024 11:24
--- NOTE | 2024-07-22 22:48 | DVHPN2 ---
Consult Progress Note Date Seen: Jul 16, 2024 Subjective Patient reports: Feels better (appears to be improving , however is having notable anemia but unclear where she is losing blood . she is intubated and sedated . got 2 units of pecro blood cells ) Objective vital signs Vital Sign Date Time Temp Pulse Resp B/P (MAP) Pulse Ox O2 Delivery O2 Flow Rate FiO2 07/21/24 12:36 0 Ambu-Bag 07/21/24 09:37 92 177/103 (127) 07/21/24 09:29 8 07/21/24 08:00 97.8 97.8 07/21/24 08:00 100 100 07/20/24 08:00 15 Total Intake and Output 07/21/24 07/21/24 07/22/24 15:00 23:00 07:00 Intake Total 462.667 ml Balance 462.667 ml medications Current Medications Medications Dose Ordered Sig/Era Route Start Time Stop Time Status Last Admin Dose Admin Morphine Sulfate 2 mg Q30M PRN IV 07/06/24 21:45 Cancel Morphine Sulfate 2 mg Q30MIN PRN IV 07/07/24 06:45 Cancel Rifampin 300 mg BID PO 07/09/24 22:00 UNV Insulin Human (Reg)/Sodium Chloride 100 ml @ 0.5 mls/hr Q24H IV 07/14/24 11:15 UNV Diagnostic Test (Pha) 1 strip Q90MIN 07/14/24 12:00 UNV Dextrose 50 ml PRN PRN IV 07/14/24 11:15 UNV Insulin Glargine 15 units DAILY SC 07/15/24 10:00 UNV Sodium Bicarbonate 75 ml/ Dextrose 1,075 ml @ 100 mls/hr [id number] IV 07/14/24 14:30 Cancel Physical Exam: General: Lethargic, agitated, pale appearance. Neck: Supple. No masses. HEENT: PERRL. Normal lids and conjunctiva. Moist mucous membranes. Reports headaches. Heart: Tachycardic at 125 bpm, regular rhythm. No murmur. No lower extremity edema. Lungs: Normal respiratory effort. Clear to auscultation bilaterally. No wheezes. No crackles. Abdomen: Mildly distended. Non-tender. Hepatomegaly and splenomegaly palpable up to 5 cm below costal margin. No masses or abdominal hernia. Msk: No digital cyanosis. Normal strength and tone in all 4 limbs. Skin: Pale. Warm and dry, no rashes. Neuro: Alert but lethargic. No facial droop or slurred speech. Extra-ocular movements intact. Sensation intact to soft touch in all 4 limbs. Psych: Agitated mood. Full affect. Oriented to person, place, time, and situation. 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 female with a past medical history of HIV/AIDS ( 2023: Absolute CD 4 [place] 22, % CD 4 Pos. Lymph. 3.1), untreated MAC, who presents with flu-like symptoms for the last 7 days, including green, watery diarrhea for the last 4 days. Her diarrhea is chronic and has acutely worsened to the point where she is requiring electrolyte repletion. She was diagnosed with MAC infection on July 31 and was started on ethambutol, Bactrim, and Biktarvy but has been non-compliant with her medications. Labs reveal severe anemia (Hgb 7.5), hyponatremia (Na 130), and urine drug screen positive for cannabinoids and amphetamines(in the past). CT abdomen/pelvis shows hepatosplenomegaly and numerous clusters of enlarged lymph nodes around the mesenteric root measuring up to 1.7 cm, as well as prominent lymph nodes in the pelvis and groin. From her last hospitalization, the following were positive. She was transferred to [facility] where she was diagnosed with NTM pneumonia and discharged on a regimen she has been compliant with Now presents 2 weeks later with abdominal pain, diarrhea, SOB, and hypotension 6/2: remains clinically ill , having positive stool blood , ongoing systemic mac infection is likely etiology . tachycardic 6/3: continues to have worsening diarrhea , expect antibiotics to take several days to be in effect 6: patient was started on Lomatil by GI and would no recommend this as patients diarrhea is largely infectious in etiology and slowing down diarrhea would worsen infection 07/12: patient was intubated due to airway protection. chest xray shows multifocal airspace disease , altered mental status is likely related to GI loses and sepsis 07/13:patient occasionally gets low potassium and creatinine is slightly elevated at 4.5 07/14: presser needs likely related to GI losses and improvement of MAC infection 07/15: whitecount 2.1 . chest xray shows patchy bibasilar airspace disease . diarrhea is improving but pressers are slow to come off 07/16: no overt signs of bleeding . patient is off pressers but is getting hemodynamically unstable when turned Plan: - stop ciprofloxacin - start Amikacin - continue meropenem - would consider metholpred in 48 hours - hold bictary in setting of severe septic picture and would not want to exacerbate patients immunoconcentration - monitor renal function - continue to keep maps above 65 and fluid resuscitation - follow up on pending stool studies - continue close ICU support and fluid resuscitation and electrolyte replacement - Provide supportive care: - Transfuse PRBCs if hemoglobin <7 g/dL. - Pain management for abdominal pain. - Antipyretics for fevers. - Further diagnostics: - Obtain Quantiferon-TB Gold test.--> negative - Send stool cultures, ova and parasites, and C. difficile testing. - Screen for CMV antibodies due to diarrhea.--> positive for exposure, would check CMV DNA levels. - Check Cryptococcus antigen.--> negative - Obtain AFB cultures from blood, stool, and sputum. - Screen for toxoplasma antigen.--> negative - Screen for syphilis, gonorrhea, chlamydia.-->negative - Check hepatitis B core IgM antibody.-->negative - Monitor patient closely. - Consider starting prednisone after ruling out cryptococcal infection. Antibiotics: - continue ciprofloxacin, ethambutol. will consider starting Amikacin for broader MAC therapy or prednizone - recommend EKG in next 24hrs to see if patients QTC remains prolonged - continue Bactrim PJP prophylaxis so long as patient can tolerate - recommended expanded viral and parasitic enteric pcr panel send out. Isolation Precautions: Standard Authorized and Performed by: beverly guzman Total critical care time: Approximately 76 minutes Due to a high probability of clinically significant, life threatening deterioration, the patient required my highest level of preparedness to intervene emergently and I personally spent this critical care time directly and personally managing the patient. This critical care time included obtaining a history; examining the patient; pulse oximetry; ordering and review of studies; arranging urgent treatment with development of a management plan; evaluation of patient's response to treatment; frequent reassessment; and, discussions with other providers. This critical care time was performed to assess and manage the high probability of imminent, life-threatening deterioration that could result in multi-organ failure. It was exclusive of separately billable procedures and treating other patients and teaching time. Plan discussed with: Other Dietary Evaluation Review Recommendations by RD: Increase Calorie Intake, Protein Supplementation Comments: Pt meets criteria for Severe Protein-Calorie Malnutrition in the setting of chronic illness based on severe weight loss (26.2kg/34.6% in 3 months) and moderate muscle wasting(triceps & shoulder). Nutrition Recommendation: 1. Liberalize to regular diet to minimize food restriction 2. Appetite stimulant daily 3. Ensure Enlive 240 ml TID (ordered per ONS protocol) Expected Outcomes/Goals: To maintain/gain weight To meet at least 75% estimated needs Fu 3-5 days Interpretation of weight loss: >7.5% in 3 months Muscle Mass (Severe): Mod to Severe Depletion Protein Calorie Malnutrition: Severe CC Plasma Assessment Blood Product Administration S: 13:40 BEVERLY GUZMAN MD Jul 22, 2024 22:48
--- NOTE | 2024-07-22 22:48 | DVHPN2 ---
Consult Progress Note Date Seen: Jul 17, 2024 Subjective Patient reports: Other (primary team spoke with patients infectious disease Dr [facility], Dr. Kim and relayed sensitivites to prior MAC infection and patient is on appropriate therapy . on minimal vent and worse when turning ) Objective vital signs Vital Sign Date Time Temp Pulse Resp B/P (MAP) Pulse Ox O2 Delivery O2 Flow Rate FiO2 07/21/24 12:36 0 Ambu-Bag 07/21/24 09:37 92 177/103 (127) 07/21/24 09:29 8 07/21/24 08:00 97.8 97.8 07/21/24 08:00 100 100 07/20/24 08:00 15 Total Intake and Output 07/21/24 07/21/24 07/22/24 15:00 23:00 07:00 Intake Total 462.667 ml Balance 462.667 ml medications Current Medications Medications Dose Ordered Sig/Era Route Start Time Stop Time Status Last Admin Dose Admin Morphine Sulfate 2 mg Q30M PRN IV 07/06/24 21:45 Cancel Morphine Sulfate 2 mg Q30MIN PRN IV 07/07/24 06:45 Cancel Rifampin 300 mg BID PO 07/09/24 22:00 UNV Insulin Human (Reg)/Sodium Chloride 100 ml @ 0.5 mls/hr Q24H IV 07/14/24 11:15 UNV Diagnostic Test (Pha) 1 strip Q90MIN 07/14/24 12:00 UNV Dextrose 50 ml PRN PRN IV 07/14/24 11:15 UNV Insulin Glargine 15 units DAILY SC 07/15/24 10:00 UNV Sodium Bicarbonate 75 ml/ Dextrose 1,075 ml @ 100 mls/hr [id number] IV 07/14/24 14:30 Cancel Physical Exam: General: Lethargic, agitated, pale appearance. Neck: Supple. No masses. HEENT: PERRL. Normal lids and conjunctiva. Moist mucous membranes. Reports headaches. Heart: Tachycardic at 125 bpm, regular rhythm. No murmur. No lower extremity edema. Lungs: Normal respiratory effort. Clear to auscultation bilaterally. No wheezes. No crackles. Abdomen: Mildly distended. Non-tender. Hepatomegaly and splenomegaly palpable up to 5 cm below costal margin. No masses or abdominal hernia. Msk: No digital cyanosis. Normal strength and tone in all 4 limbs. Skin: Pale. Warm and dry, no rashes. Neuro: Alert but lethargic. No facial droop or slurred speech. Extra-ocular movements intact. Sensation intact to soft touch in all 4 limbs. Psych: Agitated mood. Full affect. Oriented to person, place, time, and situation. 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 female with a past medical history of HIV/AIDS ( 2023: Absolute CD 4 [place] 22, % CD 4 Pos. Lymph. 3.1), untreated MAC, who presents with flu-like symptoms for the last 7 days, including green, watery diarrhea for the last 4 days. Her diarrhea is chronic and has acutely worsened to the point where she is requiring electrolyte repletion. She was diagnosed with MAC infection on July 31 and was started on ethambutol, Bactrim, and Biktarvy but has been non-compliant with her medications. Labs reveal severe anemia (Hgb 7.5), hyponatremia (Na 130), and urine drug screen positive for cannabinoids and amphetamines(in the past). CT abdomen/pelvis shows hepatosplenomegaly and numerous clusters of enlarged lymph nodes around the mesenteric root measuring up to 1.7 cm, as well as prominent lymph nodes in the pelvis and groin. From her last hospitalization, the following were positive. She was transferred to [facility] where she was diagnosed with NTM pneumonia and discharged on a regimen she has been compliant with Now presents 2 weeks later with abdominal pain, diarrhea, SOB, and hypotension 6/2: remains clinically ill , having positive stool blood , ongoing systemic mac infection is likely etiology . tachycardic 6/3: continues to have worsening diarrhea , expect antibiotics to take several days to be in effect 6: patient was started on Lomatil by GI and would no recommend this as patients diarrhea is largely infectious in etiology and slowing down diarrhea would worsen infection 6: patient was intubated due to airway protection. chest xray shows multifocal airspace disease , altered mental status is likely related to GI loses and sepsis 07/13:patient occasionally gets low potassium and creatinine is slightly elevated at 4.5 07/14: presser needs likely related to GI losses and improvement of MAC infection 07/15: whitecount 2.1 . chest xray shows patchy bibasilar airspace disease . diarrhea is improving but pressers are slow to come off 07/16: no overt signs of bleeding . patient is off pressers but is getting hemodynamically unstable when turned 07/17: tolerating tube feeds but patient is having intermittent presser needs that are slowly overall decreasing Plan: - recommend repeat EKG in 5 days to ensure that QTC prolongation has improved after stopping ciprofloxacin - Continue meropenem and Amikacin - would consider metholpred in 48 hours - hold bictary in setting of severe septic picture and would not want to exacerbate patients immunoconcentration - monitor renal function - continue to keep maps above 65 and fluid resuscitation - follow up on pending stool studies - continue close ICU support and fluid resuscitation and electrolyte replacement - Provide supportive care: - Transfuse PRBCs if hemoglobin <7 g/dL. - Pain management for abdominal pain. - Antipyretics for fevers. - Further diagnostics: - Obtain Quantiferon-TB Gold test.--> negative - Send stool cultures, ova and parasites, and C. difficile testing. - Screen for CMV antibodies due to diarrhea.--> positive for exposure, would check CMV DNA levels. - Check Cryptococcus antigen.--> negative - Obtain AFB cultures from blood, stool, and sputum. - Screen for toxoplasma antigen.--> negative - Screen for syphilis, gonorrhea, chlamydia.-->negative - Check hepatitis B core IgM antibody.-->negative - Monitor patient closely. - Consider starting prednisone after ruling out cryptococcal infection. Antibiotics: - continue ciprofloxacin, ethambutol. will consider starting Amikacin for broader MAC therapy or prednizone - recommend EKG in next 24hrs to see if patients QTC remains prolonged - continue Bactrim PJP prophylaxis so long as patient can tolerate - recommended expanded viral and parasitic enteric pcr panel send out. Isolation Precautions: Standard Authorized and Performed by: zoë hardy Total critical care time: Approximately 76 minutes Due to a high probability of clinically significant, life threatening deterioration, the patient required my highest level of preparedness to intervene emergently and I personally spent this critical care time directly and personally managing the patient. This critical care time included obtaining a history; examining the patient; pulse oximetry; ordering and review of studies; arranging urgent treatment with development of a management plan; evaluation of patient's response to treatment; frequent reassessment; and, discussions with other providers. This critical care time was performed to assess and manage the high probability of imminent, life-threatening deterioration that could result in multi-organ failure. It was exclusive of separately billable procedures and treating other patients and teaching time. Plan discussed with: Other Dietary Evaluation Review Recommendations by RD: Increase Calorie Intake, Protein Supplementation Comments: Pt meets criteria for Severe Protein-Calorie Malnutrition in the setting of chronic illness based on severe weight loss (26.2kg/34.6% in 3 months) and moderate muscle wasting(triceps & shoulder). Nutrition Recommendation: 1. Liberalize to regular diet to minimize food restriction 2. Appetite stimulant daily 3. Ensure Enlive 240 ml TID (ordered per ONS protocol) Expected Outcomes/Goals: To maintain/gain weight To meet at least 75% estimated needs Fu 3-5 days Interpretation of weight loss: >7.5% in 3 months Muscle Mass (Severe): Mod to Severe Depletion Protein Calorie Malnutrition: Severe CC Plasma Assessment Blood Product Administration S: 13:40 ZOË HARDY MD Jul 22, 2024 22:48
--- NOTE | 2024-07-22 22:49 | DVHPN2 ---
Consult Progress Note Objective vital signs Vital Sign Date Time Temp Pulse Resp B/P (MAP) Pulse Ox O2 Delivery O2 Flow Rate FiO2 07/21/24 12:36 0 Ambu-Bag 07/21/24 09:37 92 177/103 (127) 07/21/24 09:29 8 07/21/24 08:00 97.8 97.8 07/21/24 08:00 100 100 07/20/24 08:00 15 Total Intake and Output 07/21/24 07/21/24 07/22/24 15:00 23:00 07:00 Intake Total 462.667 ml Balance 462.667 ml medications Current Medications Medications Dose Ordered Sig/Era Route Start Time Stop Time Status Last Admin Dose Admin Morphine Sulfate 2 mg Q30M PRN IV 07/06/24 21:45 Cancel Morphine Sulfate 2 mg Q30MIN PRN IV 07/07/24 06:45 Cancel Rifampin 300 mg BID PO 07/09/24 22:00 UNV Insulin Human (Reg)/Sodium Chloride 100 ml @ 0.5 mls/hr Q24H IV 07/14/24 11:15 UNV Diagnostic Test (Pha) 1 strip Q90MIN 07/14/24 12:00 UNV Dextrose 50 ml PRN PRN IV 07/14/24 11:15 UNV Insulin Glargine 15 units DAILY SC 07/15/24 10:00 UNV Sodium Bicarbonate 75 ml/ Dextrose 1,075 ml @ 100 mls/hr [id number] IV 07/14/24 14:30 Cancel laboratory and microbiology Laboratory Tests 07/21/24 04:54 Test 07/21/24 04:54 Range/Units Serum Glucose 129 H 74-106 mg/dL Problem List/Assessment/Plan Problem List/Assessment/Plan ASSESSMENT AND PLAN: ID Problem List: HIV/AIDS - Non-compliance with antiretroviral therapy - 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 female with a past medical history of HIV/AIDS ( 8 2024: Absolute CD 4 [place] 22, % CD 4 Pos. Lymph. 3.1), untreated MAC, who presents with flu-like symptoms for the last 7 days, including green, watery diarrhea for the last 4 days. Her diarrhea is chronic and has acutely worsened to the point where she is requiring electrolyte repletion. She was diagnosed with MAC infection on July 31 and was started on ethambutol, Bactrim, and Biktarvy but has been non-compliant with her medications. Labs reveal severe anemia (Hgb 7.5), hyponatremia (Na 130), and urine drug screen positive for cannabinoids and amphetamines(in the past). CT abdomen/pelvis shows hepatosplenomegaly and numerous clusters of enlarged lymph nodes around the mesenteric root measuring up to 1.7 cm, as well as prominent lymph nodes in the pelvis and groin. From her last hospitalization, the following were positive. She was transferred to [facility] where she was diagnosed with NTM pneumonia and discharged on a regimen she has been compliant with Now presents 2 weeks later with abdominal pain, diarrhea, SOB, and hypotension 6/2: remains clinically ill , having positive stool blood , ongoing systemic mac infection is likely etiology . tachycardic 6/3: continues to have worsening diarrhea , expect antibiotics to take several days to be in effect 6: patient was started on Lomatil by GI and would no recommend this as patients diarrhea is largely infectious in etiology and slowing down diarrhea would worsen infection 65: patient was intubated due to airway protection. chest xray shows multifocal airspace disease , altered mental status is likely related to GI loses and sepsis 66:patient occasionally gets low potassium and creatinine is slightly elevated at 4.5 6/7: presser needs likely related to GI losses and improvement of MAC infection 8: whitecount 2.1 . chest xray shows patchy bibasilar airspace disease . diarrhea is improving but pressers are slow to come off Plan: - stop ciprofloxacin - start Amikacin - continue meropenem - would consider metholpred in 48 hours - hold bictary in setting of severe septic picture and would not want to exacerbate patients immunoconcentration - monitor renal function - continue to keep maps above 65 and fluid resuscitation - follow up on pending stool studies - continue close ICU support and fluid resuscitation and electrolyte replacement - Provide supportive care: - Transfuse PRBCs if hemoglobin <7 g/dL. - Pain management for abdominal pain. - Antipyretics for fevers. - Further diagnostics: - Obtain Quantiferon-TB Gold test.--> negative - Send stool cultures, ova and parasites, and C. difficile testing. - Screen for CMV antibodies due to diarrhea.--> positive for exposure, would check CMV DNA levels. - Check Cryptococcus antigen.--> negative - Obtain AFB cultures from blood, stool, and sputum. - Screen for toxoplasma antigen.--> negative - Screen for syphilis, gonorrhea, chlamydia.-->negative - Check hepatitis B core IgM antibody.-->negative - Monitor patient closely. - Consider starting prednisone after ruling out cryptococcal infection. Antibiotics: - continue ciprofloxacin, ethambutol. will consider starting Amikacin for broader MAC therapy or prednizone - recommend EKG in next 24hrs to see if patients QTC remains prolonged - continue Bactrim PJP prophylaxis so long as patient can tolerate - recommended expanded viral and parasitic enteric pcr panel send out. Isolation Precautions: Standard Authorized and Performed by: beverly guzman Total critical care time: Approximately 76 minutes Due to a high probability of clinically significant, life threatening deterioration, the patient required my highest level of preparedness to intervene emergently and I personally spent this critical care time directly and personally managing the patient. This critical care time included obtaining a history; examining the patient; pulse oximetry; ordering and review of studies; arranging urgent treatment with development of a management plan; evaluation of patient's response to treatment; frequent reassessment; and, discussions with other providers. This critical care time was performed to assess and manage the high probability of imminent, life-threatening deterioration that could result in multi-organ failure. It was exclusive of separately billable procedures and treating other patients and teaching time. Dietary Evaluation Review Recommendations by RD: Increase Calorie Intake, Protein Supplementation Comments: Pt meets criteria for Severe Protein-Calorie Malnutrition in the setting of chronic illness based on severe weight loss (26.2kg/34.6% in 3 months) and moderate muscle wasting(triceps & shoulder). Nutrition Recommendation: 1. Liberalize to regular diet to minimize food restriction 2. Appetite stimulant daily 3. Ensure Enlive 240 ml TID (ordered per ONS protocol) Expected Outcomes/Goals: To maintain/gain weight To meet at least 75% estimated needs Fu 3-5 days Interpretation of weight loss: >7.5% in 3 months Muscle Mass (Severe): Mod to Severe Depletion Protein Calorie Malnutrition: Severe CC Plasma Assessment Blood Product Administration S: 13:40 BEVERLY GUZMAN MD Jul 22, 2024 22:49
--- NOTE | 2024-07-22 22:49 | DVHPN2 ---
Consult Progress Note Date Seen: Jul 18, 2024 Subjective Patient reports: Other (had another morning blood test with low hemoglobin of 6.8 and patient was transfused . patient has low platelets , suspected to be bleeding someplace . loose stool . no signs of bleeding . is on TPN and pressers are still coming down ) Objective vital signs Vital Sign Date Time Temp Pulse Resp B/P (MAP) Pulse Ox O2 Delivery O2 Flow Rate FiO2 07/21/24 12:36 0 Ambu-Bag 07/21/24 09:37 92 177/103 (127) 07/21/24 09:29 8 07/21/24 08:00 97.8 97.8 07/21/24 08:00 100 100 07/20/24 08:00 15 Total Intake and Output 07/21/24 07/21/24 07/22/24 15:00 23:00 07:00 Intake Total 462.667 ml Balance 462.667 ml medications Current Medications Medications Dose Ordered Sig/Era Route Start Time Stop Time Status Last Admin Dose Admin Morphine Sulfate 2 mg Q30M PRN IV 07/06/24 21:45 Cancel Morphine Sulfate 2 mg Q30MIN PRN IV 07/07/24 06:45 Cancel Rifampin 300 mg BID PO 07/09/24 22:00 UNV Insulin Human (Reg)/Sodium Chloride 100 ml @ 0.5 mls/hr Q24H IV 07/14/24 11:15 UNV Diagnostic Test (Pha) 1 strip Q90MIN 07/14/24 12:00 UNV Dextrose 50 ml PRN PRN IV 07/14/24 11:15 UNV Insulin Glargine 15 units DAILY SC 07/15/24 10:00 UNV Sodium Bicarbonate 75 ml/ Dextrose 1,075 ml @ 100 mls/hr [id number] IV 07/14/24 14:30 Cancel Physical Exam: General: Lethargic, agitated, pale appearance. Neck: Supple. No masses. HEENT: PERRL. Normal lids and conjunctiva. Moist mucous membranes. Reports headaches. Heart: Tachycardic at 125 bpm, regular rhythm. No murmur. No lower extremity edema. Lungs: Normal respiratory effort. Clear to auscultation bilaterally. No wheezes. No crackles. Abdomen: Mildly distended. Non-tender. Hepatomegaly and splenomegaly palpable up to 5 cm below costal margin. No masses or abdominal hernia. Msk: No digital cyanosis. Normal strength and tone in all 4 limbs. Skin: Pale. Warm and dry, no rashes. Neuro: Alert but lethargic. No facial droop or slurred speech. Extra-ocular movements intact. Sensation intact to soft touch in all 4 limbs. Psych: Agitated mood. Full affect. Oriented to person, place, time, and situation. 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 female with a past medical history of HIV/AIDS ( 2023: Absolute CD 4 [place] 22, % CD 4 Pos. Lymph. 3.1), untreated MAC, who presents with flu-like symptoms for the last 7 days, including green, watery diarrhea for the last 4 days. Her diarrhea is chronic and has acutely worsened to the point where she is requiring electrolyte repletion. She was diagnosed with MAC infection on July 31 and was started on ethambutol, Bactrim, and Biktarvy but has been non-compliant with her medications. Labs reveal severe anemia (Hgb 7.5), hyponatremia (Na 130), and urine drug screen positive for cannabinoids and amphetamines(in the past). CT abdomen/pelvis shows hepatosplenomegaly and numerous clusters of enlarged lymph nodes around the mesenteric root measuring up to 1.7 cm, as well as prominent lymph nodes in the pelvis and groin. From her last hospitalization, the following were positive. She was transferred to [facility] where she was diagnosed with NTM pneumonia and discharged on a regimen she has been compliant with Now presents 2 weeks later with abdominal pain, diarrhea, SOB, and hypotension 6/2: remains clinically ill , having positive stool blood , ongoing systemic mac infection is likely etiology . tachycardic 6/3: continues to have worsening diarrhea , expect antibiotics to take several days to be in effect 6: patient was started on Lomatil by GI and would no recommend this as patients diarrhea is largely infectious in etiology and slowing down diarrhea would worsen infection 6: patient was intubated due to airway protection. chest xray shows multifocal airspace disease , altered mental status is likely related to GI loses and sepsis 07/13:patient occasionally gets low potassium and creatinine is slightly elevated at 4.5 07/14: presser needs likely related to GI losses and improvement of MAC infection 07/15: whitecount 2.1 . chest xray shows patchy bibasilar airspace disease . diarrhea is improving but pressers are slow to come off 07/16: no overt signs of bleeding . patient is off pressers but is getting hemodynamically unstable when turned 07/17: tolerating tube feeds but patient is having intermittent presser needs that are slowly overall decreasing 07/18: Patient has an unidentified bleed source with recurrent anemia and thrombocytopenia , potentially some contributions from pancytopenias from patients ongoing MAC infection as well as Bactrim use however suspect overall these will slowly recover with ongoing antibiotic treatment as bone marrow infiltration and MAC disease is likely the predominate etiology of the pancytopenia Plan: - recommend repeat EKG in 5 days to ensure that QTC prolongation has improved after stopping ciprofloxacin - Continue meropenem and Amikacin - would consider metholpred in 48 hours - hold bictary in setting of severe septic picture and would not want to exacerbate patients immunoconcentration - monitor renal function - continue to keep maps above 65 and fluid resuscitation - follow up on pending stool studies - continue close ICU support and fluid resuscitation and electrolyte replacement - Provide supportive care: - Transfuse PRBCs if hemoglobin <7 g/dL. - Pain management for abdominal pain. - Antipyretics for fevers. - Further diagnostics: - Obtain Quantiferon-TB Gold test.--> negative - Send stool cultures, ova and parasites, and C. difficile testing. - Screen for CMV antibodies due to diarrhea.--> positive for exposure, would check CMV DNA levels. - Check Cryptococcus antigen.--> negative - Obtain AFB cultures from blood, stool, and sputum. - Screen for toxoplasma antigen.--> negative - Screen for syphilis, gonorrhea, chlamydia.-->negative - Check hepatitis B core IgM antibody.-->negative - Monitor patient closely. - Consider starting prednisone after ruling out cryptococcal infection. Antibiotics: - continue ciprofloxacin, ethambutol. will consider starting Amikacin for broader MAC therapy or prednizone - recommend EKG in next 24hrs to see if patients QTC remains prolonged - continue Bactrim PJP prophylaxis so long as patient can tolerate - recommended expanded viral and parasitic enteric pcr panel send out. Isolation Precautions: Standard Authorized and Performed by: beverly guzman Total critical care time: Approximately 76 minutes Due to a high probability of clinically significant, life threatening deterioration, the patient required my highest level of preparedness to intervene emergently and I personally spent this critical care time directly and personally managing the patient. This critical care time included obtaining a history; examining the patient; pulse oximetry; ordering and review of studies; arranging urgent treatment with development of a management plan; evaluation of patient's response to treatment; frequent reassessment; and, discussions with other providers. This critical care time was performed to assess and manage the high probability of imminent, life-threatening deterioration that could result in multi-organ failure. It was exclusive of separately billable procedures and treating other patients and teaching time. Plan discussed with: Other Dietary Evaluation Review Recommendations by RD: Increase Calorie Intake, Protein Supplementation Comments: Pt meets criteria for Severe Protein-Calorie Malnutrition in the setting of chronic illness based on severe weight loss (26.2kg/34.6% in 3 months) and moderate muscle wasting(triceps & shoulder). Nutrition Recommendation: 1. Liberalize to regular diet to minimize food restriction 2. Appetite stimulant daily 3. Ensure Enlive 240 ml TID (ordered per ONS protocol) Expected Outcomes/Goals: To maintain/gain weight To meet at least 75% estimated needs Fu 3-5 days Interpretation of weight loss: >7.5% in 3 months Muscle Mass (Severe): Mod to Severe Depletion Protein Calorie Malnutrition: Severe CC Plasma Assessment Blood Product Administration S: 13:40 BEVERLY GUZMAN MD Jul 22, 2024 22:49
--- NOTE | 2024-07-22 22:49 | DVHPN2 ---
Consult Progress Note Date Seen: Jul 19, 2024 Subjective Patient reports: Feels worse (having anemia again despite multiple units of blood being transfused and remains intubated and on minimal vent on TPN . off all pressers , is hypernatremic to 147 and some bleeding from the TPN line as it was recently removed ) Objective vital signs Vital Sign Date Time Temp Pulse Resp B/P (MAP) Pulse Ox O2 Delivery O2 Flow Rate FiO2 07/21/24 12:36 0 Ambu-Bag 07/21/24 09:37 92 177/103 (127) 07/21/24 09:29 8 07/21/24 08:00 97.8 97.8 07/21/24 08:00 100 100 07/20/24 08:00 15 Total Intake and Output 07/21/24 07/21/24 07/22/24 15:00 23:00 07:00 Intake Total 462.667 ml Balance 462.667 ml medications Current Medications Medications Dose Ordered Sig/Era Route Start Time Stop Time Status Last Admin Dose Admin Morphine Sulfate 2 mg Q30M PRN IV 07/06/24 21:45 Cancel Morphine Sulfate 2 mg Q30MIN PRN IV 07/07/24 06:45 Cancel Rifampin 300 mg BID PO 07/09/24 22:00 UNV Insulin Human (Reg)/Sodium Chloride 100 ml @ 0.5 mls/hr Q24H IV 07/14/24 11:15 UNV Diagnostic Test (Pha) 1 strip Q90MIN 07/14/24 12:00 UNV Dextrose 50 ml PRN PRN IV 07/14/24 11:15 UNV Insulin Glargine 15 units DAILY SC 07/15/24 10:00 UNV Sodium Bicarbonate 75 ml/ Dextrose 1,075 ml @ 100 mls/hr [id number] IV 07/14/24 14:30 Cancel Physical Exam: General: Lethargic, agitated, pale appearance. Neck: Supple. No masses. HEENT: PERRL. Normal lids and conjunctiva. Moist mucous membranes. Reports headaches. Heart: Tachycardic at 125 bpm, regular rhythm. No murmur. No lower extremity edema. Lungs: Normal respiratory effort. Clear to auscultation bilaterally. No wheezes. No crackles. Abdomen: Mildly distended. Non-tender. Hepatomegaly and splenomegaly palpable up to 5 cm below costal margin. No masses or abdominal hernia. Msk: No digital cyanosis. Normal strength and tone in all 4 limbs. Skin: Pale. Warm and dry, no rashes. Neuro: Alert but lethargic. No facial droop or slurred speech. Extra-ocular movements intact. Sensation intact to soft touch in all 4 limbs. Psych: Agitated mood. Full affect. Oriented to person, place, time, and situation. 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 female with a past medical history of HIV/AIDS ( 2023: Absolute CD 4 [place] 22, % CD 4 Pos. Lymph. 3.1), untreated MAC, who presents with flu-like symptoms for the last 7 days, including green, watery diarrhea for the last 4 days. Her diarrhea is chronic and has acutely worsened to the point where she is requiring electrolyte repletion. She was diagnosed with MAC infection on July 31 and was started on ethambutol, Bactrim, and Biktarvy but has been non-compliant with her medications. Labs reveal severe anemia (Hgb 7.5), hyponatremia (Na 130), and urine drug screen positive for cannabinoids and amphetamines(in the past). CT abdomen/pelvis shows hepatosplenomegaly and numerous clusters of enlarged lymph nodes around the mesenteric root measuring up to 1.7 cm, as well as prominent lymph nodes in the pelvis and groin. From her last hospitalization, the following were positive. She was transferred to [facility] where she was diagnosed with NTM pneumonia and discharged on a regimen she has been compliant with Now presents 2 weeks later with abdominal pain, diarrhea, SOB, and hypotension 6/2: remains clinically ill , having positive stool blood , ongoing systemic mac infection is likely etiology . tachycardic 6/3: continues to have worsening diarrhea , expect antibiotics to take several days to be in effect 6: patient was started on Lomatil by GI and would no recommend this as patients diarrhea is largely infectious in etiology and slowing down diarrhea would worsen infection 6: patient was intubated due to airway protection. chest xray shows multifocal airspace disease , altered mental status is likely related to GI loses and sepsis 07/13:patient occasionally gets low potassium and creatinine is slightly elevated at 4.5 6: presser needs likely related to GI losses and improvement of MAC infection 07/15: whitecount 2.1 . chest xray shows patchy bibasilar airspace disease . diarrhea is improving but pressers are slow to come off 07/16: no overt signs of bleeding . patient is off pressers but is getting hemodynamically unstable when turned 07/17: tolerating tube feeds but patient is having intermittent presser needs that are slowly overall decreasing 07/18: Patient has an unidentified bleed source with recurrent anemia and thrombocytopenia , potentially some contributions from pancytopenias from patients ongoing MAC infection as well as Bactrim use however suspect overall these will slowly recover with ongoing antibiotic treatment as bone marrow infiltration and MAC disease is likely the predominate etiology of the pancytopenia 07/19: Patient was estimated to 15 liters non rebreather and remains lethargic , unresponsive for the most part . heavy breathing and tachypneic but is off pressers Plan: - continue to monitor patients clinical status as she transitions off life support - would not initiate methylpred at this time given clinical improvement as patient has come off the ventilator support. unlikely that steroids would improve pancytopenia and could potentially worsen patients disseminated MAC infection - recommend repeat EKG in 5 days to ensure that QTC prolongation has improved after stopping ciprofloxacin - Continue meropenem and Amikacin - would consider methylpred in 48 hours - hold bictarvy in setting of severe septic picture and would not want to exacerbate patients immunoconcentration - monitor renal function - continue to keep maps above 65 and fluid resuscitation - follow up on pending stool studies - continue close ICU support and fluid resuscitation and electrolyte replacement - Provide supportive care: - Transfuse PRBCs if hemoglobin <7 g/dL. - Pain management for abdominal pain. - Antipyretics for fevers. - Further diagnostics: - Obtain Quantiferon-TB Gold test.--> negative - Send stool cultures, ova and parasites, and C. difficile testing. - Screen for CMV antibodies due to diarrhea.--> positive for exposure, would check CMV DNA levels. - Check Cryptococcus antigen.--> negative - Obtain AFB cultures from blood, stool, and sputum. - Screen for toxoplasma antigen.--> negative - Screen for syphilis, gonorrhea, chlamydia.-->negative - Check hepatitis B core IgM antibody.-->negative - Monitor patient closely. - Consider starting prednisone after ruling out cryptococcal infection. Antibiotics: - continue ciprofloxacin, ethambutol. will consider starting Amikacin for broader MAC therapy or prednizone - recommend EKG in next 24hrs to see if patients QTC remains prolonged - continue Bactrim PJP prophylaxis so long as patient can tolerate - recommended expanded viral and parasitic enteric pcr panel send out. Isolation Precautions: Standard Authorized and Performed by: beverly guzman Total critical care time: Approximately 76 minutes Due to a high probability of clinically significant, life threatening deterioration, the patient required my highest level of preparedness to intervene emergently and I personally spent this critical care time directly and personally managing the patient. This critical care time included obtaining a history; examining the patient; pulse oximetry; ordering and review of studies; arranging urgent treatment with development of a management plan; evaluation of patient's response to treatment; frequent reassessment; and, discussions with other providers. This critical care time was performed to assess and manage the high probability of imminent, life-threatening deterioration that could result in multi-organ failure. It was exclusive of separately billable procedures and treating other patients and teaching time. Plan discussed with: Other Dietary Evaluation Review Recommendations by RD: Increase Calorie Intake, Protein Supplementation Comments: Pt meets criteria for Severe Protein-Calorie Malnutrition in the setting of chronic illness based on severe weight loss (26.2kg/34.6% in 3 months) and moderate muscle wasting(triceps & shoulder). Nutrition Recommendation: 1. Liberalize to regular diet to minimize food restriction 2. Appetite stimulant daily 3. Ensure Enlive 240 ml TID (ordered per ONS protocol) Expected Outcomes/Goals: To maintain/gain weight To meet at least 75% estimated needs Fu 3-5 days Interpretation of weight loss: >7.5% in 3 months Muscle Mass (Severe): Mod to Severe Depletion Protein Calorie Malnutrition: Severe CC Plasma Assessment Blood Product Administration S: 13:40 BEVERLY GUZMAN MD Jul 22, 2024 22:49
--- NOTE | 2024-07-22 22:49 | DVHPN2 ---
Consult Progress Note Date Seen: Jul 20, 2024 Subjective Patient reports: Other ([facility] , appears still lethargic and severley ill and having loose stools . tolerating some liquid diet ) Objective vital signs Vital Sign Date Time Temp Pulse Resp B/P (MAP) Pulse Ox O2 Delivery O2 Flow Rate FiO2 07/21/24 12:36 0 Ambu-Bag 07/21/24 09:37 92 177/103 (127) 07/21/24 09:29 8 07/21/24 08:00 97.8 97.8 07/21/24 08:00 100 100 07/20/24 08:00 15 Total Intake and Output 07/21/24 07/21/24 07/22/24 15:00 23:00 07:00 Intake Total 462.667 ml Balance 462.667 ml medications Current Medications Medications Dose Ordered Sig/Era Route Start Time Stop Time Status Last Admin Dose Admin Morphine Sulfate 2 mg Q30M PRN IV 07/06/24 21:45 Cancel Morphine Sulfate 2 mg Q30MIN PRN IV 07/07/24 06:45 Cancel Rifampin 300 mg BID PO 07/09/24 22:00 UNV Insulin Human (Reg)/Sodium Chloride 100 ml @ 0.5 mls/hr Q24H IV 07/14/24 11:15 UNV Diagnostic Test (Pha) 1 strip Q90MIN 07/14/24 12:00 UNV Dextrose 50 ml PRN PRN IV 07/14/24 11:15 UNV Insulin Glargine 15 units DAILY SC 07/15/24 10:00 UNV Sodium Bicarbonate 75 ml/ Dextrose 1,075 ml @ 100 mls/hr [id number] IV 07/14/24 14:30 Cancel laboratory and microbiology Laboratory Tests 07/21/24 04:54 Test 07/21/24 04:54 Range/Units Serum Glucose 129 H 74-106 mg/dL Problem List/Assessment/Plan Problems(with codes): (1) Hypoalbuminemia (2) Chest pain (3) HIV (human immunodeficiency virus infection) (4) Diarrhea (5) Opportunistic infection (6) HIV disease (7) Pneumocystis jiroveci pneumonia (8) History of HIV or AIDS (9) Cellulitis of abdominal wall Problem List/Assessment/Plan ASSESSMENT AND PLAN: ID Problem List: HIV/AIDS - Non-compliance with antiretroviral therapy - 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 female with a past medical history of HIV/AIDS ( 2023: Absolute CD 4 Lindsay 22, % CD 4 Pos. Lymph. 3.1), untreated MAC, who presents with flu-like symptoms for the last 7 days, including green, watery diarrhea for the last 4 days. Her diarrhea is chronic and has acutely worsened to the point where she is requiring electrolyte repletion. She was diagnosed with MAC infection on July 31 and was started on ethambutol, Bactrim, and Biktarvy but has been non-compliant with her medications. Labs reveal severe anemia (Hgb 7.5), hyponatremia (Na 130), and urine drug screen positive for cannabinoids and amphetamines(in the past). CT abdomen/pelvis shows hepatosplenomegaly and numerous clusters of enlarged lymph nodes around the mesenteric root measuring up to 1.7 cm, as well as prominent lymph nodes in the pelvis and groin. From her last hospitalization, the following were positive. She was transferred to [facility] where she was diagnosed with NTM pneumonia and discharged on a regimen she has been compliant with Now presents 2 weeks later with abdominal pain, diarrhea, SOB, and hypotension 6/2: remains clinically ill , having positive stool blood , ongoing systemic mac infection is likely etiology . tachycardic 6/3: continues to have worsening diarrhea , expect antibiotics to take several days to be in effect 6: patient was started on Lomatil by GI and would no recommend this as patients diarrhea is largely infectious in etiology and slowing down diarrhea would worsen infection 07/12: patient was intubated due to airway protection. chest xray shows multifocal airspace disease , altered mental status is likely related to GI loses and sepsis 07/13:patient occasionally gets low potassium and creatinine is slightly elevated at 4.5 6: presser needs likely related to GI losses and improvement of MAC infection 07/15: whitecount 2.1 . chest xray shows patchy bibasilar airspace disease . diarrhea is improving but pressers are slow to come off 07/16: no overt signs of bleeding . patient is off pressers but is getting hemodynamically unstable when turned 07/17: tolerating tube feeds but patient is having intermittent presser needs that are slowly overall decreasing 07/18: Patient has an unidentified bleed source with recurrent anemia and thrombocytopenia , potentially some contributions from pancytopenias from patients ongoing MAC infection as well as Bactrim use however suspect overall these will slowly recover with ongoing antibiotic treatment as bone marrow infiltration and MAC disease is likely the predominate etiology of the pancytopenia 07/19: Patient was estimated to 15 liters non rebreather and remains lethargic , unresponsive for the most part . heavy breathing and tachypneic but is off pressers 07/20: remains tachypneic and does not want to be intubated again and is currently DNI Plan: - continue to monitor patients clinical status as she transitions off life support - would not initiate methylpred at this time given clinical improvement as patient has come off the ventilator support. unlikely that steroids would improve pancytopenia and could potentially worsen patients disseminated MAC infection - recommend repeat EKG in 5 days to ensure that QTC prolongation has improved after stopping ciprofloxacin - Continue meropenem and Amikacin - would consider metholpred in 48 hours - hold bictary in setting of severe septic picture and would not want to exacerbate patients immunoconcentration - monitor renal function - continue to keep maps above 65 and fluid resuscitation - follow up on pending stool studies - continue close ICU support and fluid resuscitation and electrolyte replacement - Provide supportive care: - Transfuse PRBCs if hemoglobin <7 g/dL. - Pain management for abdominal pain. - Antipyretics for fevers. - Further diagnostics: - Obtain Quantiferon-TB Gold test.--> negative - Send stool cultures, ova and parasites, and C. difficile testing. - Screen for CMV antibodies due to diarrhea.--> positive for exposure, would check CMV DNA levels. - Check Cryptococcus antigen.--> negative - Obtain AFB cultures from blood, stool, and sputum. - Screen for toxoplasma antigen.--> negative - Screen for syphilis, gonorrhea, chlamydia.-->negative - Check hepatitis B core IgM antibody.-->negative - continue Bactrim PJP prophylaxis so long as patient can tolerate - recommended expanded viral and parasitic enteric pcr panel send out. Isolation Precautions: Standard Authorized and Performed by: beverly guzman Total critical care time: Approximately 76 minutes Due to a high probability of clinically significant, life threatening deterioration, the patient required my highest level of preparedness to intervene emergently and I personally spent this critical care time directly and personally managing the patient. This critical care time included obtaining a history; examining the patient; pulse oximetry; ordering and review of studies; arranging urgent treatment with development of a management plan; evaluation of patient's response to treatment; frequent reassessment; and, discussions with other providers. This critical care time was performed to assess and manage the high probability of imminent, life-threatening deterioration that could result in multi-organ failure. It was exclusive of separately billable procedures and treating other patients and teaching time. Plan discussed with: Other Dietary Evaluation Review Recommendations by RD: Increase Calorie Intake, Protein Supplementation Comments: Pt meets criteria for Severe Protein-Calorie Malnutrition in the setting of chronic illness based on severe weight loss (26.2kg/34.6% in 3 months) and moderate muscle wasting(triceps & shoulder). Nutrition Recommendation: 1. Liberalize to regular diet to minimize food restriction 2. Appetite stimulant daily 3. Ensure Enlive 240 ml TID (ordered per [facility]NS protocol) Expected Outcomes/Goals: To maintain/gain weight To meet at least 75% estimated needs Fu 3-5 days Interpretation of weight loss: >7.5% in 3 months Muscle Mass (Severe): Mod to Severe Depletion Protein Calorie Malnutrition: Severe CC Plasma Assessment Blood Product Administration S: 13:40 BEVERLY GUZMAN MD Jul 22, 2024 22:49
== END 2024-07-21 14:22 | DRG 890 ==
LOC: EDBD 17:46 → ER 17:55 → OVERFLOW 21:42 → ICU CENTRL 07-08 17:30
PROVIDERS: ADMIT Internal Medicine Pulmonary Disease; ATTEND Emergency Medicine
PROC: 06HY33Z Insertion of Infusion Device into Lower Vein, Percutaneous Approach (ICD-10-PCS; 2024-07-07)
PROC: 04HY32Z Insertion of Monitoring Device into Lower Artery, Percutaneous Approach (ICD-10-PCS; 2024-07-12)
PROC: 05HY33Z Insertion of Infusion Device into Upper Vein, Percutaneous Approach (ICD-10-PCS; 2024-07-12)
PROC: 0BH17EZ Insertion of Endotracheal Airway into Trachea, Via Natural or Artificial Opening (ICD-10-PCS; 2024-07-12)
PROC: 5A1955Z Respiratory Ventilation, Greater than 96 Consecutive Hours (ICD-10-PCS; 2024-07-12)
PROC: 02HV33Z Insertion of Infusion Device into Superior Vena Cava, Percutaneous Approach (ICD-10-PCS; 2024-07-12)
PROC: B548ZZA Ultrasonography of Superior Vena Cava, Guidance (ICD-10-PCS; 2024-07-12)
PROC: 05H933Z Insertion of Infusion Device into Right Brachial Vein, Percutaneous Approach (ICD-10-PCS; 2024-07-13)
PROC: B54MZZA Ultrasonography of Right Upper Extremity Veins, Guidance (ICD-10-PCS; 2024-07-13)
PROC: 30233N1 Transfusion of Nonautologous Red Blood Cells into Peripheral Vein, Percutaneous Approach (ICD-10-PCS; principal; 2024-07-14)
PROC: 0B978ZZ Drainage of Left Main Bronchus, Via Natural or Artificial Opening Endoscopic (ICD-10-PCS; 2024-07-17)
PROC: 0B938ZZ Drainage of Right Main Bronchus, Via Natural or Artificial Opening Endoscopic (ICD-10-PCS; 2024-07-17)
PROC: 30233R1 Transfusion of Nonautologous Platelets into Peripheral Vein, Percutaneous Approach (ICD-10-PCS; 2024-07-19)
PROC: 5A09357 Assistance with Respiratory Ventilation, Less than 24 Consecutive Hours, Continuous Positive Airway Pressure (ICD-10-PCS; 2024-07-20)
PROC: 5A12012 Performance of Cardiac Output, Single, Manual (ICD-10-PCS; 2024-07-21)
PROC: 5A09357 Assistance with Respiratory Ventilation, Less than 24 Consecutive Hours, Continuous Positive Airway Pressure (ICD-10-PCS; 2024-07-21)
DX: B20 Human immunodeficiency virus [HIV] disease (principal); A41.9 Sepsis, unspecified organism; A31.0 Pulmonary mycobacterial infection; J96.01 Acute respiratory failure with hypoxia; R65.21 Severe sepsis with septic shock; G93.41 Metabolic encephalopathy; E43 Unspecified severe protein-calorie malnutrition; B59 Pneumocystosis; R64 Cachexia; E87.0 Hyperosmolality and hypernatremia; I46.9 Cardiac arrest, cause unspecified; N39.0 Urinary tract infection, site not specified; E87.1 Hypo-osmolality and hyponatremia; E88.09 Other disorders of plasma-protein metabolism, not elsewhere classified; K92.2 Gastrointestinal hemorrhage, unspecified; A04.9 Bacterial intestinal infection, unspecified; E86.1 Hypovolemia; I50.22 Chronic systolic (congestive) heart failure; E87.6 Hypokalemia; J15.69 Pneumonia due to other Gram-negative bacteria; J15.9 Unspecified bacterial pneumonia; I49.3 Ventricular premature depolarization; R16.2 Hepatomegaly with splenomegaly, not elsewhere classified; N04.9 Nephrotic syndrome with unspecified morphologic changes; I47.20 Ventricular tachycardia, unspecified; Z98.891 History of uterine scar from previous surgery; Z90.49 Acquired absence of other specified parts of digestive tract; Z79.2 Long term (current) use of antibiotics; Z79.899 Other long term (current) drug therapy; Z79.1 Long term (current) use of non-steroidal anti-inflammatories (NSAID); Z68.1 Body mass index [BMI] 19.9 or less, adult; Z91.148 Patient's other noncompliance with medication regimen for other reason
CPT/HCPCS: 36415; 36430; 36556; 36569; 36600; 36620; 70551; 71045; 74018; 74176; 76937; 80048; 80053; 80061; 80150; 81001; 82270; 82570; 82805; 82947; 82962; 83010; 83605; 83615; 83690; 83735; 83880; 83930; 83935; 84100; 84132; 84156; 84300; 84443; 84478; 84484; 85007; 85014; 85018; 85025; 85027; 85048; 85610; 85652; 85730; 86141; 86850; 86900; 86901; 86920; 87040; 87070; 87077; 87081; 87086; 87177; 87186; 87205; 87493; 92950; 93005; 93306; 93925; 94002; 94003; 94640; 94660; 96361; 96365; 99291; G0378; J1815; J2003; J2185; J2405; J2470; J3480; J3490; J7060; J7131; P9047